=== PATIENT | female | born 1950 | race African-American/Black ===

== ENCOUNTER 2017-07-11 11:19 | Emergency (ER) | payer MEDICARE, OTHER | END 2017-07-11 14:14 | disposition home or self-care (01) | LOC: ERS 11:19 | DX: L25.9 Unspecified contact dermatitis, unspecified cause (principal); I10 Essential (primary) hypertension; F17.210 Nicotine dependence, cigarettes, uncomplicated; Z79.899 Other long term (current) drug therapy | CPT/HCPCS: 99283 ==

== ENCOUNTER 2017-08-17 20:03 | Emergency (ER) | payer MEDICARE ==
[2017-08-17 21:28] LABS: #Eosinphils 0.1 thou/uL (0.0-0.7); #Lymphocytes 1.1 thou/uL (1.20-3.40); #Monocytes 0.4 thou/uL (0.11-0.59); #Neutrophils 2.6 thou/uL (1.40-6.50); %Eosinophils 1.5 % (0.0-10.0); %Lymphocytes 26.6 % (21.0-51.0); %Monocytes 8.3 % (0.0-10.0); %Neutrophils 63.5 % (42.0-75.0); Hemoglobin 4.8 g/dL (12.0-16.0); Mean Corpuscular HGB CONC 31.6 g/dL (32.0-36.0); Mean Corpuscular Hemoglobin 35.1 pg (27.0-31.0); Mean Platelet Volume 6.4 fL (7.4-10.4); Platelet Count 287 thou/uL (130-400); Red Blood Cell (RBC) Count 1.38 mill/uL (4.20-5.40); White Blood Cell (WBC) Count 4.2 thou/uL (4.8-10.8)
[2017-08-17 21:39] LABS: ALT (SGPT) 13 U/L (8-55); AST (SGOT) 40 U/L (5-34); Albumin 3.4 g/dL (3.4-4.8); Alkaline Phosphatase 106 U/L (40-150); Anion Gap 20 mmol/L (10-20); BUN (Urea Nitrogen) 18 mg/dL (9.8-20.1); Bilirubin, Total 0.3 mg/dL (0.2-1.2); Calc. Creatinine Clearance 0 mL/min (70-130); Calcium 8.6 mg/dL (7.8-10.44); Carbon Dioxide 22 mmol/L (23-31); Chloride 100 mmol/L (98-107); Estimated GFR-MDRD 82; Glucose 74 mg/dL (80-115); Potassium 3.9 mmol/L (3.5-5.1); Protein, Total 6.4 g/dL (6.0-8.3); Sodium 138 mmol/L (136-145)
[2017-08-18 00:31] LABS: #Lymphocytes 0.7 thou/uL (1.20-3.40); #Monocytes 0.2 thou/uL (0.11-0.59); #Neutrophils 2.2 thou/uL (1.40-6.50); %Basophils 0.2 % (0.0-1.0); %Eosinophils 0.7 % (0.0-10.0); %Lymphocytes 20.8 % (21.0-51.0); %Monocytes 7.2 % (0.0-10.0); Hemoglobin 5.9 g/dL (12.0-16.0); Mean Corpuscular HGB CONC 32.8 g/dL (32.0-36.0); Mean Corpuscular Hemoglobin 34.5 pg (27.0-31.0); Mean Platelet Volume 6.1 fL (7.4-10.4); Platelet Count 224 thou/uL (130-400); RBC Distribution Width 16.2 % (11.5-14.5); Red Blood Cell (RBC) Count 1.72 mill/uL (4.20-5.40); White Blood Cell (WBC) Count 3.1 thou/uL (4.8-10.8)
[2017-08-18 04:18] LABS: #Lymphocytes 0.6 thou/uL (1.20-3.40); #Monocytes 0.3 thou/uL (0.11-0.59); #Neutrophils 1.6 thou/uL (1.40-6.50); %Eosinophils 0.7 % (0.0-10.0); %Lymphocytes 24.6 % (21.0-51.0); %Monocytes 11.2 % (0.0-10.0); %Neutrophils 63.4 % (42.0-75.0); Hemoglobin 6.2 g/dL (12.0-16.0); Mean Corpuscular HGB CONC 32.7 g/dL (32.0-36.0); Mean Corpuscular Hemoglobin 31.8 pg (27.0-31.0); Mean Corpuscular Volume 97.4 fl (81.0-99.0); Mean Platelet Volume 6.4 fL (7.4-10.4); Platelet Count 200 thou/uL (130-400); Red Blood Cell (RBC) Count 1.94 mill/uL (4.20-5.40); White Blood Cell (WBC) Count 2.6 thou/uL (4.8-10.8)
== END 2017-08-18 06:08 | disposition home or self-care (01) ==
LOC: ERS 20:03
DX: D64.9 Anemia, unspecified (principal); I10 Essential (primary) hypertension; F17.210 Nicotine dependence, cigarettes, uncomplicated; Z79.899 Other long term (current) drug therapy
CPT/HCPCS: 36430; 80053; 82274; 85025 ×2; 86850; 86900; 86901; 86920; P9016; 36415; 99406

== ENCOUNTER 2017-09-02 15:53 | Inpatient (IN) | payer MEDICARE ==
[2017-09-02 16:26] LABS: Hemoglobin 8.5 g/dL (12.0-16.0); Mean Corpuscular HGB CONC 31.1 g/dL (32.0-36.0); Mean Corpuscular Hemoglobin 32.9 pg (27.0-31.0); Mean Platelet Volume 6.6 fL (7.4-10.4); Platelet Count 261 thou/uL (130-400); RBC Distribution Width 20.9 % (11.5-14.5); Red Blood Cell (RBC) Count 2.57 mill/uL (4.20-5.40); White Blood Cell (WBC) Count 8.4 thou/uL (4.8-10.8)
[2017-09-02 16:45] LABS: Anisocytosis MODERATE=16-30 cells (100X) (0-5/hpf); Band 11 % (5-11); Lymphocytes 1 % (21-51); MDiff Complete? YES; Macrocytosis SLIGHT = 6-15 cells (100X) (0-5/hpf); Monocytes 3 % (0-10); Myelocyte 1 % (0-0); Neutrophil 83 % (42-75); Nucleated RBC 1 % (0); Ovalocytes SLIGHT = 2-5 cells (100X) (0-1/hpf); PLT Morphology Comment Appears Adequate; Polychromasia MODERATE = 3-4 cells (100X) (0-2/hpf); Target Cells SLIGHT = 2-5 cells (100X) (0-1/hpf); Tear Drops SLIGHT = 2-5 cells (100X) (0-1/hpf)
[2017-09-02 16:48] LABS: ALT (SGPT) 21 U/L (8-55); AST (SGOT) 71 U/L (5-34); Albumin 3.5 g/dL (3.4-4.8); Alcohol Less than 10 mg/dL (Less than 10); Alkaline Phosphatase 157 U/L (40-150); Anion Gap 34 mmol/L (10-20); BUN (Urea Nitrogen) 12 mg/dL (9.8-20.1); Bilirubin, Total 0.6 mg/dL (0.2-1.2); Calc. Creatinine Clearance 0 mL/min (70-130); Carbon Dioxide 11 mmol/L (23-31); Chloride 99 mmol/L (98-107); Estimated GFR-MDRD 74; Globulin 3.4 g/dL (2.4-3.5); Glucose 71 mg/dL (80-115); Potassium 3.9 mmol/L (3.5-5.1); Protein, Total 6.9 g/dL (6.0-8.3); Sodium 140 mmol/L (136-145)
[2017-09-02 16:51] LABS: Bilirubin Negative (Negative); Blood, Urine Negative (Negative); Clarity CLEAR (Clear); Glucose, Urine (Dipstick) Negative (Negative); Leukocyte Negative (Negative); Nitrite Negative (Negative); Protein, Urine (Dipstick) Trace mg/dL (Neg-Trace); Specific Gravity, Urine 1.018 (1.002-1.036); Urobilinogen 0.2 mg/dL (0.2-1.0); pH, Urine 5.5 (5.0-9.0)
[2017-09-02 17:05] LABS: CKMB 2.7 ng/mL (0-6.6); Troponin I 0.022 ng/mL (< 0.028)
[2017-09-02 17:10] LABS: Carbamazepine-Tegretol 4.5 ug/mL (4.0-12.0)
--- NOTE | 2017-09-02 17:10 | RAD ---
CHEST ONE VIEW: History: Emergency exam. Comparison: 11-29-16 FINDINGS: Old left sided rib fractures. No focal airspace consolidation, pneumothorax or effusions. Scarring of the lung apices. Cardiac silhouette and mediastinal contours within normal limits for technique. IMPRESSION: No acute intrathoracic abnormality. POS: [facility]
[2017-09-02 17:25] LABS: Free Thyroxine Index 1.43 (1.4-3.1); T4 5.5 ug/dL (4.87-11.72)
[2017-09-02] MEDS ORDERED: carBAMazepine 200 MG TAB PO SCH (18:15)
[2017-09-02] MEDS ORDERED: Acetaminophen 500 MG TAB ONE (18:36)
[2017-09-02 18:40] LABS: Acetaminophen Less than 6.0 mcg/mL (10.0-30.0); Alcohol Less than 10 mg/dL (Less than 10); Salicylate Less than 8.0 mg/dL (15.0-30.0)
[2017-09-02] MEDS ORDERED: Dextrose 5% in Water 500 ML IV SCH (18:45)
[2017-09-02 18:52] LABS: Amphetamine Not Detected (NotDetected); Barbiturates Screen Not Detected (NotDetected); Benzodiazepine Screen Not Detected (NotDetected); Cocaine Metabolite Screen Not Detected (NotDetected); Medtox Control Line Valid? VALID (VALID); Medtox Reader # READER 4; Methadone Not Detected (NotDetected); Methamphetamine Not Detected (NotDetected); Opiate Screen Not Detected (NotDetected); Oxycodone Screen Not Detected (NotDetected); Phencyclidine (PCP) Not Detected (NotDetected); THC/Cannabinoid Screen Not Detected (NotDetected); Tricyclic Screen Not Detected (NotDetected)
--- NOTE | 2017-09-02 19:21 | HP ---
DATE OF ADMISSION: 08/23/2017. CHIEF COMPLAINT: Seizures. HISTORY OF PRESENT ILLNESS: This is a 67-year-old white female living with her mother today at [facility] d 11:00 when the mother came back from [facility], the patient was complaining of some nausea and asked f or some water as patient's mother went out to get some bottle, when she returned, the patient was foa alvin in her mouth and was shaking all over the body and was leaning over the bed. Following this las nannette for a couple of minutes which was longer according to her mother, and then following this, she im mediately called the EMS and when EMS arrived, the patient had another onset of seizure. At that poi nt, the patient was more alert, but as the EMS suggested the patient to be sent to the ER. The patie nt was taken in the EMS ambulance and the patient developed another onset of seizure following anothe r onset of seizure. Following this, patient was given Ativan by the EMS and when the patient arrived here, she is completely drowsy. They checked her blood levels for carbamazepine, which was noted to be 4.5 which is on the lower range of normal. After asking the mother, she told me that the patient was taking only morning dose and was skipping the evening doses and the mother denied the patient sun ving any headaches or any dizziness. No chest pain, no nausea, no vomiting. PAST MEDICAL HISTORY: 1. Anemia of chronic disease. 2. Hypertension. 3. Chronic kidney disease stage 3. 4. History of breast cancer. 5. History of hypothyroidism. 6. History of folic acid deficiency. PAST SURGICAL HISTORY: History of hysterectomy and left hip replacement. SOCIAL HISTORY: The patient has a history of alcohol abuse, history of tobacco abuse and lives at [facility] with family. FAMILY HISTORY: Noncontributory to present complaint. HOME MEDICATIONS: 1. Cyanocobalamin. 2. Carbamazepine 200 mg p.o. b.i.d. 3. Ferrous sulfate 325 mg p.o. daily. 4. Folic acid 1 mg p.o. daily. 5. Lisinopril 20 mg/12.5 mg tablet 1 tablet p.o. daily. 6. Metoprolol 50 mg p.o. daily. 7. Pantoprazole 40 mg p.o. daily. 8. Spironolactone 25 mg p.o. in the morning. 9. Thiamine 100 mg p.o. daily. ALLERGIES: GADOLINIUM CONTRAST. REVIEW OF SYSTEMS: Could not be obtained as the patient is completely obtunded with the effect of th e medication. PHYSICAL EXAMINATION: VITAL SIGNS: Blood pressure 140/90, pulse is 120, respiratory rate is 18, saturation is 98%. GENERAL: The patient is a moderately built and moderately nourished, does not appear to be in acute distress at this time. Alert, oriented x3. HEENT: Atraumatic, normocephalic. PERRLA. Extraocular muscles were intact. Oral mucosa is pink an d moist. CARDIOVASCULAR: S1, S2 normal. No murmurs, rubs or gallops. LUNGS: Bilateral air entry was equal. No wheezing, no crackles. ABDOMEN: Soft, nontender, no guarding, no rebound tenderness. Bowel sounds normal. MUSCULOSKELETAL: No calf tenderness. No pedal edema, no joint tenderness, no joint swelling. SKIN: No cyanosis, no erythema, no rash, no pallor. NEUROLOGIC: Cranial nerve examination could not be obtained as the patient is completely disoriented and not following any commands at this time. LABORATORY DATA: WBC is 8.5, hemoglobin 8.5, hematocrit 27.8, platelets 261. Sodium is 140, potassi um 3.9, chloride is 99, BUN 12, creatinine 0.92. BNP is 589. Prolactin is 51.36. Chest x-ray was done which did not show any evidence of acute abnormality. No CT was ordered. The p vlad has a previous history of seizures. ASSESSMENT AND PLAN: 1. Acute tonic clonic seizure. 2. Acute metabolic encephalopathy. 3. History of congestive heart failure. 4. History of hyperprolactinemia. 5. Anemia of chronic disease. 1. The plan is to admit this patient to IMCU as the patient has poorly-controlled seizures secondary to subtherapeutic levels of carbamazepine. Patient had repeat seizures x3 today. We will closely m onitor with seizure precautions and will keep the patient n.p.o. We will give Ativan as needed, for seizure episode, 2 mg. The patient was given carbamazepine in the ER, the extra dose, which the lora ent missed. We will recheck the carbamazepine levels tomorrow. I will consult Neurology as the lora ent has never seen a Neurology and was supposed to see one of the neurologists in the clinics. 2. The patient has an elevated prolactin level, but her previous prolactin levels were much larger t de jesus this. There is no previous history of evaluation of this prolactin levels, but I would leave thi s for a neurologist and would plan to order an MRI with and without contrast tomorrow if the neurolog ist want to pursue this. 3. Patient has anemia of chronic disease. Previously, she always had hemoglobin almost on this leve ls and this is not new. She is on folic acid as the patient has a megaloblastic anemia. 4. The patient has history of CHF. She had elevated BNP, but her previous BNPs were much larger jay jay n this one. The patient does not seem to be any evidence of volume overload nor any evidence of eloy estive heart failure at this time. We will closely monitor and avoid any fluid overloads. We will n ot start the patient on any IV fluids unless absolutely needed. The patient had low blood sugar leve ls at this time and will start her on D5 at 50 mL an hour. 5. History of hypertension. We will restart the patient on her home medications. 6. Deep venous thrombosis prophylaxis, Lovenox. Dictating physician, Jarvis Baumann, has spent 70 minutes with this patient and 1 hour is the critical c are time.
[2017-09-02 19:53] LABS: Troponin I 0.031 ng/mL (< 0.028)
[2017-09-02] MEDS ORDERED: Ondansetron HCl/PF 4 MG/2 ML Vial IVP PRN ×2 (19:58→21:27)
[2017-09-02] MEDS ORDERED: Ondansetron ODT 4 MG TAB SL PRN (19:58)
[2017-09-02] MEDS ORDERED: Acetaminophen 325 MG TAB PO PRN (19:58)
[2017-09-02] MEDS ORDERED: HYDROcodone/Acetaminophen 5/325 mg Tablet PO PRN (21:27)
[2017-09-02] MEDS ORDERED: Lorazepam 2 MG/ML VIAL SLOW IVP PRN (21:27)
[2017-09-02] MEDS: carBAMazepine 200 MG TAB PO SCH (21:34)
[2017-09-02] MEDS ORDERED: Famotidine/PF 20 mg/2ml Vial SLOW IVP SCH (21:45)
[2017-09-02] MEDS ORDERED: Dextrose 5 %-0.45 % NaCl 1,000 ML IV SCH (22:00)
[2017-09-02 22:30] LABS: Troponin I 0.028 ng/mL (< 0.028)
[2017-09-03 04:21] LABS: #Lymphocytes 0.7 thou/uL (1.20-3.40); #Monocytes 0.3 thou/uL (0.11-0.59); #Neutrophils 2.3 thou/uL (1.40-6.50); %Basophils 0.3 % (0.0-1.0); %Lymphocytes 20.3 % (21.0-51.0); %Monocytes 8.3 % (0.0-10.0); %Neutrophils 70.1 % (42.0-75.0); Hemoglobin 6.3 g/dL (12.0-16.0); Mean Corpuscular HGB CONC 32.3 g/dL (32.0-36.0); Mean Platelet Volume 6.9 fL (7.4-10.4); Platelet Count 200 thou/uL (130-400); RBC Distribution Width 21.3 % (11.5-14.5); White Blood Cell (WBC) Count 3.3 thou/uL (4.8-10.8)
[2017-09-03 04:53] LABS: Anion Gap 18 mmol/L (10-20); BUN (Urea Nitrogen) 9 mg/dL (9.8-20.1); Calc. Creatinine Clearance 62 mL/min (70-130); Calcium 7.8 mg/dL (7.8-10.44); Carbon Dioxide 23 mmol/L (23-31); Chloride 104 mmol/L (98-107); Estimated GFR-MDRD Greater than 90; Glucose 88 mg/dL (80-115); Potassium 4.9 mmol/L (3.5-5.1); Sodium 140 mmol/L (136-145)
[2017-09-03] MEDS ORDERED: Ferrous Sulfate 325 MG TAB PO SCH (08:00)
[2017-09-03] MEDS ORDERED: FLU VACC TS2017-18 (>65YR) 0.5 ML SYRINGE IM ONE (09:00)
[2017-09-03] MEDS ORDERED: Prevnar 13-Val Conj/PF 0.5 ML SYRINGE IM ONE (09:00)
[2017-09-03] MEDS ORDERED: Folic Acid 1 MG TAB PO SCH (09:00)
[2017-09-03] MEDS: Famotidine/PF 20 mg/2ml Vial SLOW IVP SCH ×2 (09:05→20:40)
[2017-09-03] MEDS: Spironolactone 25 MG TAB PO SCH (09:55)
[2017-09-03] MEDS: carBAMazepine 200 MG TAB PO SCH ×2 (09:55→20:40)
[2017-09-03] MEDS: Lisinopril/Hydrochlorothiazide 20 mg/12.5 mg Tablet PO SCH (09:55)
[2017-09-03] MEDS ORDERED: Enoxaparin Sodium 40 MG/0.4 ML SYRINGE SC SCH (10:00)
[2017-09-03 11:01] LABS: Iron 124 ug/dL (50-170); Iron Binding Capacity, Total 266 mcg/dL (265-497)
[2017-09-03 11:03] LABS: Reticulocyte Count 5.2 % (0.5-1.5)
--- NOTE | 2017-09-03 12:34 | CON ---
DATE OF CONSULTATION: 09/03/2017 Ms. Oconnell is a 67-year-old female with a seizure disorder. She admits that she has only been taking half the dose of her seizure medications. She had multiple seizures yesterday and was admitted to [facility] IMU. She has not seized since. She denies a febrile illness leading up to this. She is a very poor historian. PAST MEDICAL HISTORY: Remarkable for, 1. Hypertension. 2. Chronic kidney disease. 3. History of breast cancer. 4. History of hypothyroidism. 5. History of hysterectomy. 6. History of hip replacement. 7. 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 8. History of macrocytic anemia and neutropenia felt to be secondary to her alcohol abuse. She has actually been seen by the Hematology service in the past (05/06). 9. History of protein-calorie malnutrition. 10. History of a cardiac catheterization in 11/2016 that showed no coronary disease. 11. History of endoscopy by Dr. Matias in September showing only diverticulosis. No evidence of varice s and otherwise normal colon exam. 12. History of a brain MRI, 01/2013, showing a left temporal lobe lesion, felt to be old hemorrhage. FAMILY HISTORY: Negative for lung disease at an early age. When she was in the hospital, she was supposed to be on lisinopril, hydrochlorothiazide, metoprolol, Aldactone, Tegretol twice a day, she has been taking this once a day. Father of alcoholism. Brother had cancer. She lives with her mother and her mother called the ambulance after she had a seizure last night. She apparently still drinks and smokes. REVIEW OF SYSTEMS: Twelve-point review of systems is otherwise negative. PHYSICAL EXAMINATION: GENERAL: She is afebrile, heart rate is 100. Blood pressure 161/93, respiratory rate is 18, oximetr y is 99. HEENT: Pupils are equally reactive. Sclerae is anicteric. Extraocular movements appear full. NECK: Supple. LUNGS: Clear. HEART: Regular rhythm. S1 and S2 are normal. ABDOMEN: Soft and nontender. EXTREMITIES: Without clubbing, cyanosis, or edema. LABORATORY DATA: White count 3.3, hemoglobin 6.3, platelets 200,000. Electrolytes are normal. IMPRESSION: 1. Anemia of chronic disease with a history of normal colonoscopy and EGD in the past. 2. Severe protein-calorie malnutrition. 3. Noncompliance of seizure medicines. 4. Ongoing alcohol use, which lowers her seizure threshold. 5. History of hypertension. 6. History of a normal catheterization. She is stable to move out of the intermediate care unit to the stroke unit or to a medical bed. We w ill sign off when she transfers out. There are no acute issues here other than her ongoing medicatio n noncompliance. This is a 50 minute consult, of which 50% of the time was spent on the unit coordinating care, review ing records, reviewing radiographs and discussing care plan with the staff.
--- NOTE | 2017-09-03 13:02 | PDOC.PN ---
- Subjective Encounter Start Date: 09/03/17 Encounter Start Time: 12:00 Patient is seen today, alert and oriented, She is very weak with drop in her hb. - Objective Resuscitation Status: Resuscitation Status FULL:Full Resuscitation MAR Reviewed: Yes Vital Signs & Weight: Vital Signs (12 hours) Temp Pulse Pulse Pulse Pulse Resp BP 09/03/17 12:25 98.7 F 95 18 09/03/17 11:52 98.7 F 101 H 18 09/03/17 09:55 100 161/93 H 09/03/17 09:39 109 H 107 H 09/03/17 07:55 98.6 F 113 H 18 09/03/17 07:29 98.6 F 113 H 18 09/03/17 04:00 100.0 F H 112 H 18 BP BP BP BP Pulse Ox Pulse Ox Pulse Ox 09/03/17 12:25 140/79 100 09/03/17 11:52 128/80 99 09/03/17 09:55 09/03/17 09:39 154/98 H 161/93 H 100 99 09/03/17 07:55 100 09/03/17 07:29 163/90 H 100 09/03/17 04:00 170/95 H 100 Weight Weight 112 lb 8 oz I&O: 09/02/17 09/03/17 09/04/17 06:59 06:59 06:59 Intake Total 550 0 Balance 550 0 Result Diagrams: 09/03/17 03:23 09/03/17 03:23 Dx/Plan (1) Seizure disorder Code(s): G40.909 - EPILEPSY, UNSP, NOT INTRACTABLE, WITHOUT STATUS EPILEPTICUS Status: Chronic Comment: Consulted Neurology, restrted her Carbamazepine, Need complaince with her meds, no siezures today, pt is very weak and emaciated. continue to Monitor her . (2) Alcohol abuse Code(s): F10.10 - ALCOHOL ABUSE, UNCOMPLICATED Status: Chronic Comment: Pt is non compliance with advice to quit alcohol, increasing risk for recurrent sizures. Will strt paitent on thiamine and Foilic acid. (3) Hypertension Code(s): I10 - ESSENTIAL (PRIMARY) HYPERTENSION Status: Chronic Qualifiers: Comment: Continue her home meds, well controlled. (4) Macrocytic anemia Code(s): D53.9 - NUTRITIONAL ANEMIA, UNSPECIFIED Status: Chronic Comment: Pt had Drop in her Hb today to 6.3, will do 2 untis PRBC, check retic count and iron level, pt is severely malniurished, likely nutrition cause too. (5) Protein-calorie malnutrition, moderate Code(s): E44.0 - MODERATE PROTEIN-CALORIE MALNUTRITION Status: Chronic Comment: Will do prealbumin, consult a Dietitian to go over her eating habits. - Plan cont current plan of care, PT/OT, social service assistant (Will need likely placemnent for non compliance.), incentive spirometry, DVT proph w/lovenox * . - Discharge Day Encounter end time: 12:35 Review of Systems - Review of Systems Constitutional: weakness, malaise. negative: fever, chills, sweats, other Eyes: negative: Pain, Vision Change, Conjunctivae Inflammation, Eyelid Inflammation, Redness, Other ENT: negative: Ear Pain, Ear Discharge, Nose Pain, Nose Discharge, Nose Congestion, Mouth Pain, Mouth Swelling, Throat Pain, Throat Swelling, Other Respiratory: negative: Cough, Dry, Shortness of Breath, Hemoptysis, SOB with Excertion, Pleuritic Pain, Sputum, Wheezing Cardiovascular: negative: chest pain, palpitations, orthopnea, paroxysmal nocturnal dyspnea, edema, light headedness, other Gastrointestinal: negative: Nausea, Vomiting, Abdominal Pain, Diarrhea, Constipation, Melena, Hematochezia, Other Genitourinary: negative: Dysuria, Frequency, Incontinence, Hematuria, Retention , Other Musculoskeletal: negative: Neck Pain, Shoulder Pain, Arm Pain, Back Pain, Hand Pain, Leg Pain, Foot Pain, Other Skin: negative: Rash, Lesions, Ace, Bruising, Other Neurological: Weakness, Seizures - Medications/Allergies Allergies/Adverse Reactions: Allergies Allergy/AdvReac Type Severity Reaction Status Date / Time Gadolinium-Containing AdvReac Mild Emesis Verified 09/02/17 22:18 Contrast Medi JOYA Allergy Uncoded 09/02/17 22:18 Medications: Current Medications Hydrocodone Bitart/Acetaminophen ([place] 5/325) 1 tab PO Q4H PRN PRN Reason: Moderate Pain (4-6) Hydrocodone Bitart/Acetaminophen ([place] 7.5/325) 1 tab PO Q4H PRN PRN Reason: Moderate Pain (4-6) Carbamazepine (Tegretol) 200 mg PO BID COUNT INCLUDES THE [facility] Last Admin: 09/03/17 09:55 Dose: 200 mg Enoxaparin Sodium (Lovenox) 40 mg SC 0900 COUNT INCLUDES THE [facility] Famotidine (Pepcid) 20 mg SLOW IVP Q12HR COUNT INCLUDES THE [facility] Last Admin: 09/03/17 09:05 Dose: 20 mg Folic Acid (Folvite) 1 mg PO DAILY COUNT INCLUDES THE [facility] Lisinopril/HCTZ (Prinizide 20-12.5) 1 tab PO DAILY COUNT INCLUDES THE [facility] Last Admin: 09/03/17 09:55 Dose: 1 tab Dextrose/Sodium Chloride (D5 1/2 Ns) 1,000 mls @ 50 mls/hr IV .Q20H COUNT INCLUDES THE [facility] Last Admin: 09/02/17 22:01 Dose: 1,000 mls Lorazepam (Ativan) 2 mg SLOW IVP Q15MIN PRN PRN Reason: Seizures Metoprolol Succinate (Toprol Xl) 50 mg PO DAILY COUNT INCLUDES THE [facility] Last Admin: 09/03/17 09:55 Dose: 50 mg Ondansetron HCl (Zofran) 4 mg IVP Q6H PRN PRN Reason: Nausea/Vomiting Pantoprazole Sodium (Protonix) 40 mg PO DAILY COUNT INCLUDES THE [facility] Last Admin: 09/03/17 09:55 Dose: 40 mg Sodium Chloride (Flush - Normal Saline) 10 ml IVF Q12HR COUNT INCLUDES THE [facility] Last Admin: 09/03/17 09:56 Dose: 10 ml Sodium Chloride (Flush - Normal Saline) 10 ml IVF PRN PRN PRN Reason: Saline Flush Spironolactone (Aldactone) 25 mg PO QAM-WM COUNT INCLUDES THE [facility] Last Admin: 09/03/17 09:55 Dose: 25 mg Thiamine HCl (Thiamine) 100 mg PO DAILY COUNT INCLUDES THE [facility]
[2017-09-03] MEDS ORDERED: Furosemide 20 MG/2 ML VIAL SLOW IVP SCH (15:30)
--- NOTE | 2017-09-03 20:01 | CON ---
NEUROLOGIC FOLLOWUP DATE OF CONSULTATION: 09/03/2017 CONSULTING PHYSICIAN: Hospitalist Service. IMPRESSION: This is a middle-aged woman with a history of seizures, has been compliant with Tegretol , but her levels are a bit low at 4.5. Her last seizure was reportedly a month ago. I would suggest that we would increase her dose to 600 mg per day, be happy to follow up with her as an outpatient.
[2017-09-04 06:55] LABS: #Lymphocytes 0.6 thou/uL (1.20-3.40); #Monocytes 0.3 thou/uL (0.11-0.59); #Neutrophils 4.4 thou/uL (1.40-6.50); %Basophils 0.1 % (0.0-1.0); %Eosinophils 0.9 % (0.0-10.0); %Lymphocytes 11.3 % (21.0-51.0); %Monocytes 5.1 % (0.0-10.0); %Neutrophils 82.7 % (42.0-75.0); Hemoglobin 10.1 g/dL (12.0-16.0); Mean Corpuscular HGB CONC 33.8 g/dL (32.0-36.0); Mean Corpuscular Hemoglobin 32.6 pg (27.0-31.0); Mean Corpuscular Volume 96.3 fl (81.0-99.0); Mean Platelet Volume 7.6 fL (7.4-10.4); Platelet Count 143 thou/uL (130-400); RBC Distribution Width 18.7 % (11.5-14.5); Red Blood Cell (RBC) Count 3.11 mill/uL (4.20-5.40); White Blood Cell (WBC) Count 5.4 thou/uL (4.8-10.8)
[2017-09-04 07:01] LABS: Anion Gap 18 mmol/L (10-20); BUN (Urea Nitrogen) 8 mg/dL (9.8-20.1); Calc. Creatinine Clearance 53 mL/min (70-130); Calcium 8.2 mg/dL (7.8-10.44); Carbon Dioxide 24 mmol/L (23-31); Chloride 102 mmol/L (98-107); Estimated GFR-MDRD 88; Glucose 79 mg/dL (80-115); Potassium 3.2 mmol/L (3.5-5.1); Sodium 141 mmol/L (136-145)
[2017-09-04] MEDS ORDERED: Potassium Chloride 20 MEQ TAB PO SCH (08:30)
[2017-09-04] MEDS: Enoxaparin Sodium 40 MG/0.4 ML SYRINGE SC SCH (09:35)
[2017-09-04] MEDS: Famotidine/PF 20 mg/2ml Vial SLOW IVP SCH ×2 (09:35→20:28)
[2017-09-04] MEDS: Lisinopril/Hydrochlorothiazide 20 mg/12.5 mg Tablet PO SCH (09:36)
[2017-09-04] MEDS: carBAMazepine 200 MG TAB PO SCH ×3 (09:36→20:28)
[2017-09-04] MEDS: Spironolactone 25 MG TAB PO SCH (09:37)
[2017-09-04] MEDS: Folic Acid 1 MG TAB PO SCH (09:37)
--- NOTE | 2017-09-04 12:38 | PDOC.PN ---
- Subjective Encounter Start Date: 09/04/17 Encounter Start Time: 12:36 Subjective: feels OK. can not really tell me why she is here -: denies any CP,SOB.no fever/chills - Objective Resuscitation Status: Resuscitation Status FULL:Full Resuscitation MAR Reviewed: Yes Vital Signs & Weight: Vital Signs (12 hours) Temp Pulse Resp BP BP Pulse Ox 09/04/17 12:00 89 18 158/97 H 94 L 09/04/17 09:36 91 175/95 H 09/04/17 07:17 98.6 F 91 16 175/95 H 96 09/04/17 05:15 98.9 F 92 16 164/99 H 96 09/04/17 03:00 98.8 F 94 16 152/95 H 99 Weight Admit Weight 112 lb 8 oz Weight 103 lb 8 oz I&O: 09/03/17 09/04/17 09/05/17 06:59 06:59 06:59 Intake Total 550 1169 Balance 550 1169 Result Diagrams: 09/04/17 06:24 09/04/17 06:24 Additional Labs: Laboratory Tests 09/02/17 09/02/17 09/02/17 16:16 16:16 16:17 Iron TIBC % Saturation Troponin I 0.022 Thyroxine (T4) 5.5 Prolactin 51.36 H 09/02/17 09/02/17 09/03/17 18:11 21:57 10:34 Iron 124 TIBC 266 % Saturation 47 Troponin I 0.031 H 0.028 Thyroxine (T4) Prolactin Phys Exam - Physical Examination Constitutional: NAD HEENT: PERRLA, moist MMs, sclera anicteric, oral pharynx no lesions Neck: no nodes, no JVD, supple, full ROM Respiratory: no wheezing, no rales, no rhonchi, clear to auscultation bilateral Cardiovascular: RRR, no significant murmur, no rub, gallop Gastrointestinal: soft, non-tender, no distention, positive bowel sounds Musculoskeletal: no edema, pulses present Neurological: non-focal, normal sensation, moves all 4 limbs Psychiatric: normal affect, A&O x 3 Skin: no rash Dx/Plan (1) Breakthrough seizure Code(s): G40.919 - EPILEPSY, UNSP, INTRACTABLE, WITHOUT STATUS EPILEPTICUS Status: Acute (2) H/O malignant neoplasm of breast Code(s): Z85.3 - PERSONAL HISTORY OF MALIGNANT NEOPLASM OF BREAST Status: Acute (3) Alcohol abuse Code(s): F10.10 - ALCOHOL ABUSE, UNCOMPLICATED Status: Chronic Comment: Pt is non compliance with advice to quit alcohol, increasing risk for recurrent sizures. Will strt paitent on thiamine and Foilic acid. (4) Hypertension Code(s): I10 - ESSENTIAL (PRIMARY) HYPERTENSION Status: Chronic Qualifiers: Comment: Continue her home meds, well controlled. (5) Hypothyroidism Code(s): E03.9 - HYPOTHYROIDISM, UNSPECIFIED Status: Chronic Qualifiers: (6) Macrocytic anemia Code(s): D53.9 - NUTRITIONAL ANEMIA, UNSPECIFIED Status: Chronic Comment: Pt had Drop in her Hb today to 6.3, will do 2 untis PRBC, check retic count and iron level, pt is severely malniurished, likely nutrition cause too. (7) Protein-calorie malnutrition, moderate Code(s): E44.0 - MODERATE PROTEIN-CALORIE MALNUTRITION Status: Chronic Comment: Will do prealbumin, consult a Dietitian to go over her eating habits. (8) Seizure disorder Code(s): G40.909 - EPILEPSY, UNSP, NOT INTRACTABLE, WITHOUT STATUS EPILEPTICUS Status: Chronic Comment: Consulted Neurology, restrted her Carbamazepine, Need complaince with her meds, no siezures today, pt is very weak and emaciated. continue to Monitor her . (9) Tobacco abuse Code(s): Z72.0 - TOBACCO USE Status: Chronic - Plan out of bed/ambulate, DVT proph w/SCDs seems post-ictal w some confusion. baseline unknown.cont Tegretol.seizure p -: cont Thiamine,FA.prn ativan.ASE protocol -: hemodynamically stable. OK to transfer to Medical. -: home meds as started.reviewed. -: am labs.Occult blood testing pending.H/H stable * . Review of Systems - Review of Systems Constitutional: weakness, malaise. negative: fever, chills, sweats, other Respiratory: Cough. negative: Dry, Shortness of Breath, Hemoptysis, SOB with Excertion, Pleuritic Pain, Sputum, Wheezing Cardiovascular: negative: chest pain, palpitations, orthopnea, paroxysmal nocturnal dyspnea, edema, light headedness, other Gastrointestinal: negative: Nausea, Vomiting, Abdominal Pain, Diarrhea, Constipation, Melena, Hematochezia, Other Genitourinary: negative: Dysuria, Frequency, Incontinence, Hematuria, Retention , Other Neurological: negative: Weakness, Numbness, Incoordination, Change in Speech, Confusion, Seizures, Other - Medications/Allergies Allergies/Adverse Reactions: Allergies Allergy/AdvReac Type Severity Reaction Status Date / Time Gadolinium-Containing AdvReac Mild Emesis Verified 09/02/17 22:18 Contrast Medi JOYA Allergy Uncoded 09/02/17 22:18 Medications: Current Medications Hydrocodone Bitart/Acetaminophen ([place] 5/325) 1 tab PO Q4H PRN PRN Reason: Moderate Pain (4-6) Hydrocodone Bitart/Acetaminophen ([place] 7.5/325) 1 tab PO Q4H PRN PRN Reason: Moderate Pain (4-6) Carbamazepine (Tegretol) 200 mg PO TID [facility] Last Admin: 09/04/17 09:36 Dose: 200 mg Enoxaparin Sodium (Lovenox) 40 mg SC 0900 [facility] Last Admin: 09/04/17 09:35 Dose: 40 mg Famotidine (Pepcid) 20 mg SLOW IVP Q12HR [facility] Last Admin: 09/04/17 09:35 Dose: 20 mg Folic Acid (Folvite) 1 mg PO DAILY [facility] Last Admin: 09/04/17 09:37 Dose: 1 mg Lisinopril/HCTZ (Prinizide 20-12.5) 1 tab PO DAILY [facility] Last Admin: 09/04/17 09:36 Dose: 1 tab Lorazepam (Ativan) 2 mg SLOW IVP Q15MIN PRN PRN Reason: Seizures Metoprolol Succinate (Toprol Xl) 50 mg PO DAILY [facility] Last Admin: 09/04/17 09:36 Dose: 50 mg Ondansetron HCl (Zofran) 4 mg IVP Q6H PRN PRN Reason: Nausea/Vomiting Pantoprazole Sodium (Protonix) 40 mg PO DAILY [facility] Last Admin: 09/04/17 09:36 Dose: 40 mg Sodium Chloride (Flush - Normal Saline) 10 ml IVF Q12HR [facility] Last Admin: 09/04/17 09:35 Dose: 10 ml Sodium Chloride (Flush - Normal Saline) 10 ml IVF PRN PRN PRN Reason: Saline Flush Spironolactone (Aldactone) 25 mg PO QAM-[facility] Last Admin: 09/04/17 09:37 Dose: 25 mg Thiamine HCl (Thiamine) 100 mg PO DAILY [facility] Last Admin: 09/04/17 09:36 Dose: 100 mg
[2017-09-04] MEDS ORDERED: cloNIDine 0.1 MG TAB PO PRN (16:20)
[2017-09-04] MEDS ORDERED: hydrALAZINE 20 MG/ML VIAL SLOW IVP PRN (16:20)
[2017-09-05 05:46] LABS: #Lymphocytes 0.7 thou/uL (1.20-3.40); #Monocytes 0.5 thou/uL (0.11-0.59); #Neutrophils 4.8 thou/uL (1.40-6.50); %Basophils 0.3 % (0.0-1.0); %Eosinophils 0.8 % (0.0-10.0); %Lymphocytes 10.8 % (21.0-51.0); %Monocytes 8.5 % (0.0-10.0); %Neutrophils 79.6 % (42.0-75.0); Hemoglobin 10.3 g/dL (12.0-16.0); Mean Corpuscular HGB CONC 33.3 g/dL (32.0-36.0); Mean Corpuscular Hemoglobin 32.6 pg (27.0-31.0); Mean Corpuscular Volume 97.7 fl (81.0-99.0); Mean Platelet Volume 7.3 fL (7.4-10.4); Platelet Count 156 thou/uL (130-400); RBC Distribution Width 18.8 % (11.5-14.5); Red Blood Cell (RBC) Count 3.15 mill/uL (4.20-5.40)
[2017-09-05 06:22] LABS: Anion Gap 19 mmol/L (10-20); BUN (Urea Nitrogen) 9 mg/dL (9.8-20.1); Calc. Creatinine Clearance 49 mL/min (70-130); Calcium 8.3 mg/dL (7.8-10.44); Carbon Dioxide 24 mmol/L (23-31); Chloride 103 mmol/L (98-107); Estimated GFR-MDRD 79; Glucose 98 mg/dL (80-115); Potassium 3.6 mmol/L (3.5-5.1); Sodium 142 mmol/L (136-145)
[2017-09-05] MEDS: Spironolactone 25 MG TAB PO SCH (08:21)
[2017-09-05] MEDS: Lisinopril/Hydrochlorothiazide 20 mg/12.5 mg Tablet PO SCH (08:23)
[2017-09-05] MEDS: Folic Acid 1 MG TAB PO SCH (08:23)
[2017-09-05] MEDS: Famotidine/PF 20 mg/2ml Vial SLOW IVP SCH (08:24)
[2017-09-05] MEDS: Enoxaparin Sodium 40 MG/0.4 ML SYRINGE SC SCH (08:24)
[2017-09-05] MEDS: carBAMazepine 200 MG TAB PO SCH ×3 (08:34→20:22)
[2017-09-05] MEDS ORDERED: Lorazepam 2 MG/ML VIAL SLOW IVP PRN (08:58)
[2017-09-05] MEDS ORDERED: Amlodipine 5 MG TAB PO SCH (09:00)
--- NOTE | 2017-09-05 10:35 | PQF ---
CLINICAL DOCUMENTATION IMPROVEMENT CLARIFICATION FORM: ICD-10 Updated PLEASE DO AN ADDENDUM TO THE PROGRESS NOTE WITH ANY DOCUMENTATION UPDATES OR ADDITIONS AND CARRY THROUGH TO DC SUMMARY. THANK YOU. DATE: 09/05 ATTN: DR. ANNE MARIE WALLS Please exercise your independent, professional judgment in responding to the clarification form. Clinical indicators are provided on the bottom of this form for your review Conflicting documentation was noted in the Medical Record, please clarify if patient is being treated/monitored for: [ X ] SEVERE PROTEIN CALORIE MALNUTRITION (diagnosis #1) [ ] MODERATE PROTEIN CALORIE MALNUTRITION (diagnosis #2) [ ] Other diagnosis [ ] Unable to determine For continuity of documentation, please document condition throughout progress notes and discharge summary. Thank You. CLINICAL INDICATORS - SIGNS / SYMPTOMS/ LABS PULMONOLOGY CONSULT DOCUMENTATION 09/03: IMPRESSION: 2. SEVERE PROTEIN CALORIE MALNUTRITION ATTENDING PHYSICIAN PN DATED 09/03 & 16: MODERATE PROTEIN CALORIE MALNUTRITION BMI: 18.9 RISK FACTORS: CHRONIC ALCOHOL ABUSE POOR PO INTAKE TREATMENT: NUTRITION ASSESSMENT THANK YOU! Emma (This form is maintained as a part of the permanent medical record) 2014 [employer]. All Rights Reserved Emma Fowler RN, BSN [email or web address] Office: [phone] [facility]
[2017-09-05] MEDS: Famotidine 20 MG TAB PO SCH ×2 (11:02→20:22)
[2017-09-05 12:09] VITALS: BMI 18.9
--- NOTE | 2017-09-05 12:42 | PDOC.PN ---
- Subjective Encounter Start Date: 09/05/17 Encounter Start Time: 12:40 Subjective: feels Ok.no new complaints -: hallucinating - Objective Resuscitation Status: Resuscitation Status FULL:Full Resuscitation MAR Reviewed: Yes Vital Signs & Weight: Vital Signs (12 hours) Temp Pulse Resp BP BP Pulse Ox 09/05/17 12:00 99.1 F 95 18 152/98 H 96 09/05/17 08:23 104 H 164/101 H 09/05/17 08:21 104 H 164/101 H 09/05/17 08:00 98.3 F 104 H 16 98 09/05/17 07:40 98.3 F 104 H 16 164/101 H 98 09/05/17 04:00 98.6 F 105 H 16 153/97 H 98 Weight Admit Weight 112 lb 8 oz Weight 106 lb 14.787 oz I&O: 09/04/17 09/05/17 09/06/17 06:59 06:59 06:59 Intake Total 1169 350 300 Balance 1169 350 300 Result Diagrams: 09/05/17 05:36 09/05/17 05:36 Additional Labs: Laboratory Tests 09/04/17 09:32 Magnesium 1.0 L Phys Exam - Physical Examination Constitutional: NAD HEENT: PERRLA, moist MMs, sclera anicteric, oral pharynx no lesions Neck: no nodes, no JVD, supple, full ROM Respiratory: no wheezing, no rales, no rhonchi, clear to auscultation bilateral Cardiovascular: RRR, no significant murmur Gastrointestinal: soft, non-tender, no distention, positive bowel sounds Musculoskeletal: no edema, pulses present Neurological: non-focal, normal sensation, moves all 4 limbs Psychiatric: normal affect Skin: no rash Dx/Plan (1) Breakthrough seizure Code(s): G40.919 - EPILEPSY, UNSP, INTRACTABLE, WITHOUT STATUS EPILEPTICUS Status: Acute (2) H/O malignant neoplasm of breast Code(s): Z85.3 - PERSONAL HISTORY OF MALIGNANT NEOPLASM OF BREAST Status: Acute (3) Alcohol abuse Code(s): F10.10 - ALCOHOL ABUSE, UNCOMPLICATED Status: Chronic Comment: Pt is non compliance with advice to quit alcohol, increasing risk for recurrent sizures. Will strt paitent on thiamine and Foilic acid. (4) Hypertension Code(s): I10 - ESSENTIAL (PRIMARY) HYPERTENSION Status: Chronic Qualifiers: Comment: Continue her home meds, well controlled. (5) Hypothyroidism Code(s): E03.9 - HYPOTHYROIDISM, UNSPECIFIED Status: Chronic Qualifiers: (6) Macrocytic anemia Code(s): D53.9 - NUTRITIONAL ANEMIA, UNSPECIFIED Status: Chronic Comment: Pt had Drop in her Hb today to 6.3, will do 2 untis PRBC, check retic count and iron level, pt is severely malniurished, likely nutrition cause too. (7) Seizure disorder Code(s): G40.909 - EPILEPSY, UNSP, NOT INTRACTABLE, WITHOUT STATUS EPILEPTICUS Status: Chronic Comment: Consulted Neurology, restrted her Carbamazepine, Need complaince with her meds, no siezures today, pt is very weak and emaciated. continue to Monitor her . (8) Tobacco abuse Code(s): Z72.0 - TOBACCO USE Status: Chronic (9) Malnutrition Code(s): E46 - UNSPECIFIED PROTEIN-CALORIE MALNUTRITION Status: Acute Qualifiers: Malnutrition type: protein-calorie malnutrition Protein-calorie malnutrition severity: severe Qualified Code(s): E43 - Unspecified severe protein-calorie malnutrition - Plan DVT proph w/SCDs seizures controlled.high risk of DTs.use prn ativan -: add librium taper -: not ready for DC yet due to AMS -: monitor. -: replace and reckeck lytes prn * . Review of Systems - Review of Systems Other: can not be obtained reliably due to AMS - Medications/Allergies Allergies/Adverse Reactions: Allergies Allergy/AdvReac Type Severity Reaction Status Date / Time Gadolinium-Containing AdvReac Mild Emesis Verified 09/02/17 22:18 Contrast Medi JOYA Allergy Uncoded 09/02/17 22:18 Medications: Current Medications Hydrocodone Bitart/Acetaminophen ([place] 5/325) 1 tab PO Q4H PRN PRN Reason: Moderate Pain (4-6) Hydrocodone Bitart/Acetaminophen ([place] 7.5/325) 1 tab PO Q4H PRN PRN Reason: Moderate Pain (4-6) Amlodipine Besylate (Norvasc) 2.5 mg PO DAILY [facility] Last Admin: 09/05/17 08:21 Dose: 2.5 mg Carbamazepine (Tegretol) 200 mg PO TID [facility] Last Admin: 09/05/17 08:34 Dose: 200 mg Clonidine (Catapres) 0.1 mg PO Q4H PRN PRN Reason: SBP>160 Enoxaparin Sodium (Lovenox) 40 mg SC 0900 [facility] Last Admin: 09/05/17 08:24 Dose: 40 mg Famotidine (Pepcid) 20 mg PO BID [facility] Last Admin: 09/05/17 11:02 Dose: Not Given Folic Acid (Folvite) 1 mg PO DAILY [facility] Last Admin: 09/05/17 08:23 Dose: 1 mg Lisinopril/HCTZ (Prinizide 20-12.5) 1 tab PO DAILY [facility] Last Admin: 09/05/17 08:23 Dose: 1 tab Hydralazine HCl (Apresoline) 10 mg SLOW IVP Q4H PRN PRN Reason: SBP>170 Last Admin: 09/04/17 17:48 Dose: 10 mg Lorazepam (Ativan) 1 mg SLOW IVP Q4H PRN PRN Reason: Anxiety/Agitation Metoprolol Succinate (Toprol Xl) 50 mg PO DAILY [facility] Last Admin: 09/05/17 08:23 Dose: 50 mg Ondansetron HCl (Zofran) 4 mg IVP Q6H PRN PRN Reason: Nausea/Vomiting Pantoprazole Sodium (Protonix) 40 mg PO DAILY [facility] Last Admin: 09/05/17 08:23 Dose: 40 mg Sodium Chloride (Flush - Normal Saline) 10 ml IVF Q12HR [facility] Last Admin: 09/05/17 08:24 Dose: 10 ml Sodium Chloride (Flush - Normal Saline) 10 ml IVF PRN PRN PRN Reason: Saline Flush Spironolactone (Aldactone) 25 mg PO QAM-WM [facility] Last Admin: 09/05/17 08:21 Dose: 25 mg Thiamine HCl (Thiamine) 100 mg PO DAILY [facility] Last Admin: 09/05/17 08:23 Dose: 100 mg
[2017-09-06] MEDS: Lisinopril/Hydrochlorothiazide 20 mg/12.5 mg Tablet PO SCH (09:01)
[2017-09-06] MEDS: Famotidine 20 MG TAB PO SCH ×2 (09:01→21:50)
[2017-09-06] MEDS: Spironolactone 25 MG TAB PO SCH (09:01)
[2017-09-06] MEDS: Folic Acid 1 MG TAB PO SCH (09:01)
[2017-09-06] MEDS: Amlodipine 5 MG TAB PO SCH (09:02)
[2017-09-06] MEDS: carBAMazepine 200 MG TAB PO SCH ×3 (09:02→21:50)
[2017-09-06] MEDS: Enoxaparin Sodium 40 MG/0.4 ML SYRINGE SC SCH (09:02)
--- NOTE | 2017-09-06 13:23 | PDOC.PN ---
- Subjective Encounter Start Date: 09/06/17 Encounter Start Time: 13:21 Subjective: more awake today but with periods of hallucinations in between -: no seizures/shakes per nursing - Objective Resuscitation Status: Resuscitation Status FULL:Full Resuscitation MAR Reviewed: Yes Vital Signs & Weight: Vital Signs (12 hours) Temp Pulse Resp BP BP BP Pulse Ox 09/06/17 12:00 98.9 F 92 18 118/72 94 L 09/06/17 09:02 104 H 173/86 H 09/06/17 09:01 104 H 173/86 H 09/06/17 08:00 99.1 F 104 H 18 96 09/06/17 07:43 99.1 F 104 H 18 173/86 H 96 09/06/17 03:42 99.3 F 95 16 138/88 98 Weight Admit Weight 112 lb 8 oz Weight 106 lb 14.787 oz I&O: 09/05/17 09/06/17 09/07/17 06:59 06:59 06:59 Intake Total 350 750 Balance 350 750 Result Diagrams: 09/05/17 05:36 09/05/17 05:36 Additional Labs: Laboratory Tests 09/02/17 09/03/17 09/04/17 16:17 03:23 06:24 Hgb 8.5 L 6.3 L 10.1 L 09/05/17 05:36 Hgb 10.3 L Phys Exam - Physical Examination Constitutional: NAD HEENT: PERRLA, moist MMs, sclera anicteric, oral pharynx no lesions Neck: no nodes, no JVD, supple, full ROM Respiratory: no wheezing, no rales, no rhonchi, clear to auscultation bilateral Cardiovascular: RRR, no significant murmur Gastrointestinal: soft, non-tender, no distention, positive bowel sounds Musculoskeletal: no edema, pulses present Neurological: non-focal, normal sensation, moves all 4 limbs Psychiatric: normal affect Skin: no rash Dx/Plan (1) Delirium Code(s): R41.0 - DISORIENTATION, UNSPECIFIED Status: Acute Comment: patricia alcohal withdrawl.Baseline unkown.?Wernicke's.On Thiamine (2) Breakthrough seizure Code(s): G40.919 - EPILEPSY, UNSP, INTRACTABLE, WITHOUT STATUS EPILEPTICUS Status: Acute (3) H/O malignant neoplasm of breast Code(s): Z85.3 - PERSONAL HISTORY OF MALIGNANT NEOPLASM OF BREAST Status: Acute (4) Alcohol abuse Code(s): F10.10 - ALCOHOL ABUSE, UNCOMPLICATED Status: Chronic Comment: Pt is non compliance with advice to quit alcohol, increasing risk for recurrent sizures. Will strt paitent on thiamine and Foilic acid. (5) Hypertension Code(s): I10 - ESSENTIAL (PRIMARY) HYPERTENSION Status: Chronic Qualifiers: Comment: Continue her home meds, well controlled. (6) Hypothyroidism Code(s): E03.9 - HYPOTHYROIDISM, UNSPECIFIED Status: Chronic Qualifiers: (7) Macrocytic anemia Code(s): D53.9 - NUTRITIONAL ANEMIA, UNSPECIFIED Status: Chronic Comment: Pt had Drop in her Hb today to 6.3, will do 2 untis PRBC, check retic count and iron level, pt is severely malniurished, likely nutrition cause too. (8) Seizure disorder Code(s): G40.909 - EPILEPSY, UNSP, NOT INTRACTABLE, WITHOUT STATUS EPILEPTICUS Status: Chronic Comment: Consulted Neurology, restrted her Carbamazepine, Need complaince with her meds, no siezures today, pt is very weak and emaciated. continue to Monitor her . (9) Tobacco abuse Code(s): Z72.0 - TOBACCO USE Status: Chronic (10) Malnutrition Code(s): E46 - UNSPECIFIED PROTEIN-CALORIE MALNUTRITION Status: Acute Qualifiers: Malnutrition type: protein-calorie malnutrition Protein-calorie malnutrition severity: severe Qualified Code(s): E43 - Unspecified severe protein-calorie malnutrition - Plan PT/OT, out of bed/ambulate, DVT proph w/SCDs hemodynamically stable.remains high risk for etoh withdrawl. -: will monitor overnight w DC home if cognition better by tomorrow. -: cont Tegretol.home meds as below * . Review of Systems - Review of Systems Constitutional: negative: fever, chills, sweats, weakness, malaise, other Respiratory: Cough. negative: Dry, Shortness of Breath, Hemoptysis, SOB with Excertion, Pleuritic Pain, Sputum, Wheezing Cardiovascular: negative: chest pain, palpitations, orthopnea, paroxysmal nocturnal dyspnea, edema, light headedness, other Gastrointestinal: negative: Nausea, Vomiting, Abdominal Pain, Diarrhea, Constipation, Melena, Hematochezia, Other Genitourinary: negative: Dysuria, Frequency, Incontinence, Hematuria, Retention , Other Musculoskeletal: Leg Pain. negative: Neck Pain, Shoulder Pain, Arm Pain, Back Pain, Hand Pain, Foot Pain, Other Neurological: negative: Weakness, Numbness, Incoordination, Change in Speech, Confusion, Seizures, Other - Medications/Allergies Allergies/Adverse Reactions: Allergies Allergy/AdvReac Type Severity Reaction Status Date / Time Gadolinium-Containing AdvReac Mild Emesis Verified 09/02/17 22:18 Contrast Medi JOYA Allergy Uncoded 09/02/17 22:18 Medications: Current Medications Hydrocodone Bitart/Acetaminophen ([place] 5/325) 1 tab PO Q4H PRN PRN Reason: Moderate Pain (4-6) Hydrocodone Bitart/Acetaminophen ([place] 7.5/325) 1 tab PO Q4H PRN PRN Reason: Moderate Pain (4-6) Amlodipine Besylate (Norvasc) 5 mg PO DAILY [facility] Last Admin: 09/06/17 09:02 Dose: 5 mg Carbamazepine (Tegretol) 200 mg PO TID [facility] Last Admin: 09/06/17 09:02 Dose: 200 mg Clonidine (Catapres) 0.1 mg PO Q4H PRN PRN Reason: SBP>160 Enoxaparin Sodium (Lovenox) 40 mg SC 0900 [facility] Last Admin: 09/06/17 09:02 Dose: 40 mg Famotidine (Pepcid) 20 mg PO BID [facility] Last Admin: 09/06/17 09:01 Dose: 20 mg Folic Acid (Folvite) 1 mg PO DAILY [facility] Last Admin: 09/06/17 09:01 Dose: 1 mg Lisinopril/HCTZ (Prinizide 20-12.5) 1 tab PO DAILY [facility] Last Admin: 09/06/17 09:01 Dose: 1 tab Hydralazine HCl (Apresoline) 10 mg SLOW IVP Q4H PRN PRN Reason: SBP>170 Last Admin: 09/04/17 17:48 Dose: 10 mg Lorazepam (Ativan) 1 mg SLOW IVP Q4H PRN PRN Reason: Anxiety/Agitation Metoprolol Succinate (Toprol Xl) 50 mg PO DAILY [facility] Last Admin: 09/06/17 09:01 Dose: 50 mg Ondansetron HCl (Zofran) 4 mg IVP Q6H PRN PRN Reason: Nausea/Vomiting Pantoprazole Sodium (Protonix) 40 mg PO DAILY [facility] Last Admin: 09/06/17 09:01 Dose: 40 mg Sodium Chloride (Flush - Normal Saline) 10 ml IVF Q12HR [facility] Last Admin: 09/06/17 09:02 Dose: 10 ml Sodium Chloride (Flush - Normal Saline) 10 ml IVF PRN PRN PRN Reason: Saline Flush Spironolactone (Aldactone) 25 mg PO QAM-WM [facility] Last Admin: 09/06/17 09:01 Dose: 25 mg Thiamine HCl (Thiamine) 100 mg PO DAILY [facility] Last Admin: 09/06/17 09:01 Dose: 100 mg
[2017-09-06] MEDS ORDERED: guaiFENesin ER 600 MG TAB PO SCH (13:30)
[2017-09-06] MEDS: guaiFENesin ER 600 MG TAB PO SCH (21:48)
[2017-09-06] MEDS: HYDROcodone/Acetaminophen 7.5/325 mg Tablet PO PRN (21:49)
[2017-09-07] MEDS: HYDROcodone/Acetaminophen 7.5/325 mg Tablet PO PRN (01:52)
[2017-09-07] MEDS: Enoxaparin Sodium 40 MG/0.4 ML SYRINGE SC SCH (08:13)
[2017-09-07] MEDS: Famotidine 20 MG TAB PO SCH (08:14)
[2017-09-07] MEDS: carBAMazepine 200 MG TAB PO SCH (08:14)
[2017-09-07] MEDS: Amlodipine 5 MG TAB PO SCH (08:14)
[2017-09-07] MEDS: Folic Acid 1 MG TAB PO SCH (08:15)
[2017-09-07] MEDS: Lisinopril/Hydrochlorothiazide 20 mg/12.5 mg Tablet PO SCH (08:15)
[2017-09-07] MEDS: guaiFENesin ER 600 MG TAB PO SCH (08:15)
[2017-09-07] MEDS: Spironolactone 25 MG TAB PO SCH (08:16)
[2017-09-07 09:46] VITALS: BP 106/60; TEMP 97.7
--- NOTE | 2017-09-07 12:07 | DIS ---
DATE OF ADMISSION: 09/02/2017 DATE OF DISCHARGE: 09/07/2017 CONDITION AT THE TIME OF DISCHARGE: Stable, improved. DISCHARGE DISPOSITION: Home with home health. DISCHARGE DIAGNOSES: 1. Breakthrough seizures. 2. Seizure disorder. 3. Alcohol withdrawal delirium. 4. History of breast cancer. 5. Chronic alcohol abuse. 6. Hypertension. 7. Hyperthyroidism. 8. Macrocytic anemia, likely due to thiamine and folic acid deficiency. 9. Tobacco abuse. 10. Severe protein-calorie malnutrition. DISCHARGE MEDICATIONS: Ferrous sulfate 325 mg in the morning, Aldactone 25 mg daily, folic acid 1 mg daily, Tegretol dose was increased to 200 mg p.o. t.i.d., thiamine 100 mg daily, Toprol-XL 50 mg rafael ly, lisinopril/hydrochlorothiazide 20/12.5 mg daily, folic acid 1 mg daily, and amlodipine dose has b een increased from 2.5 to 5 mg p.o. daily. PRIMARY CARE PHYSICIAN: Amanda Faulkner. CONSULTATIONS: Inhouse include Neurology, Dr. Cayetano Lynn. PROCEDURES IN THE HOSPITAL: Include chest x-ray upon presentation, which is unremarkable. HISTORY OF PRESENTING ILLNESS: Ms. Oconnell is a 67-year-old female with past medical history of seizu re disorder, anemia of chronic kidney disease, hypertension, chronic kidney disease, breast cancer an d ongoing alcohol abuse who presented to the emergency room after she was found to be having a genera lized tonic clonic seizures witnessed by her family. EMS was called and she actually had 1 more epis ode of seizure per the EMS. Upon presentation, it was found out that she has been skipping her more medication dosages and her Tegretol level was really low. She was admitted to stroke floor with acut e tonic clonic seizures and acute metabolic encephalopathy secondary to that. She was otherwise hemo dynamically stable, but was admitted to [facility] initially for the poorly controlled seizures. She was s tarted on seizure precaution. p.r.n. Ativan and Neurology was consulted. Please see admission histo ry and physical for further details. HOSPITAL COURSE: The patient was seen by Dr. Gerard from Pulmonary Medicine and Critical Care as she was in the [facility]. He agreed with the continued care and she was moved shortly out of the [facility] to [facility] stroke floor. She did have some drop in her hemoglobin from 8.5-6.3 for which she received RBC transfusion and sinc e then her hemoglobin stayed in the 10 range. She has known history of anemia of chronic kidney dise ase with a workup for GI bleed in the past unremarkable. She was seen by Neurology, Dr. Lynn for a question of breakthrough seizures. He increased her Teg retol to 200 mg 3 times a day from twice a day and after that the patient had no seizures while in [facility]. She had somewhat postictal encephalopathy as well as alcohol withdrawal delirium and hallucination fo r which she was watched over for few days while in the hospital. On the day of discharge, she is jean-claude k to her baseline and is awake, alert and oriented x3. She was seen and examined prior to discharge. PHYSICAL EXAMINATION: Include; VITAL SIGNS: Temperature 97.7, pulse 76, respirations 16, saturating 93% to 97% on room air, blood p ressure 121/73. GENERAL: No acute distress. Awake, alert, oriented x3. CHEST: Clear to auscultation bilaterally. No wheezing, rales or rhonchi. Rate and rhythm is regula r. NEUROLOGIC: Nonfocal. LABORATORY DATA: CBC shows WBC 6.3, hemoglobin 10.3 and platelet count 156. Serum chemistries unrem arkable. Her iron, TIBC and percent saturation were checked and were normal. Her free T3 and T4 upt mayte were essentially normal as well. She had mild elevation of AST to 71 and alkaline phosphatase to 157, otherwise unremarkable. Her urine drug screen was negative. Her carbamazepine level on presen tation was 4.5. I discussed the alcohol abstinence with the patient and she is agreeable. She will be discharged [facility] with [facility], which has been set up for her. Her mother will be here stella rtly to pick her up. She has encouraged to call and make appointment with the primary care physician followup appointment.
== END 2017-09-07 13:15 | disposition home health service (06) | DRG 100 ==
LOC: ERS 15:53 → IMCU/EMU 19:49 → 2NO 09-04 05:32 → ONC 09-04 15:58
PROVIDERS: ADMIT Family Medicine; ATTEND Family Medicine
PROC: 30233N1 Transfusion of Nonautologous Red Blood Cells into Peripheral Vein, Percutaneous Approach (ICD-10-PCS; principal; 2017-09-02)
DX: G40.409 Other generalized epilepsy and epileptic syndromes, not intractable, without status epilepticus (principal); G93.41 Metabolic encephalopathy; E43 Unspecified severe protein-calorie malnutrition; F10.231 Alcohol dependence with withdrawal delirium; E51.9 Thiamine deficiency, unspecified; Z68.1 Body mass index [BMI] 19.9 or less, adult; I42.6 Alcoholic cardiomyopathy; N18.3 Chronic kidney disease, stage 3 (moderate); D63.8 Anemia in other chronic diseases classified elsewhere; I12.9 Hypertensive chronic kidney disease with stage 1 through stage 4 chronic kidney disease, or unspecified chronic kidney disease; Z85.3 Personal history of malignant neoplasm of breast; E03.9 Hypothyroidism, unspecified; E53.8 Deficiency of other specified B group vitamins; Z96.642 Presence of left artificial hip joint; F17.210 Nicotine dependence, cigarettes, uncomplicated; Z91.041 Radiographic dye allergy status; Z91.14 Patient's other noncompliance with medication regimen
CPT/HCPCS: 36415; 36430; 51701; 71045; 80048; 80053; 80156; 80306; 80307; 81003; 82553; 83540; 83550; 83735; 83880; 84146; 84436; 84479; 84484; 85025; 85046; 86850; 86900; 86901; 93005; 94760; 96360; 96361; A4216; A4353; G8978-GP-CN; G8979-GP-CK; G8987-GO-CM; G8988-GO-CI; J0360; J1650; J3475; J7050; P9016; S0028

== ENCOUNTER 2018-03-09 12:18 | Inpatient (IN) | payer MEDICARE ==
[2018-03-09] MEDS ORDERED: Fentanyl 100 MCG/2 ML VIAL ONE (12:48)
[2018-03-09 13:02] LABS: Hemoglobin 4.3 g/dL (12.0-16.0); Mean Corpuscular HGB CONC 32.9 g/dL (32.0-36.0); Mean Corpuscular Hemoglobin 37.2 pg (27.0-31.0); Mean Platelet Volume 6.5 fL (7.4-10.4); Platelet Count 247 thou/uL (130-400); RBC Distribution Width 15.9 % (11.5-14.5); Red Blood Cell (RBC) Count 1.16 mill/uL (4.20-5.40); White Blood Cell (WBC) Count 3.4 thou/uL (4.8-10.8)
[2018-03-09 13:05] LABS: ALT (SGPT) 9 U/L (8-55); AST (SGOT) 22 U/L (5-34); Albumin 3.1 g/dL (3.4-4.8); Alkaline Phosphatase 75 U/L (40-150); Anion Gap 23 mmol/L (10-20); BUN (Urea Nitrogen) 31 mg/dL (9.8-20.1); Bilirubin, Total 0.3 mg/dL (0.2-1.2); CK (CPK) 62 U/L (29-168); Calc. Creatinine Clearance 0 mL/min (70-130); Calcium 8.1 mg/dL (7.8-10.44); Carbon Dioxide 17 mmol/L (23-31); Chloride 103 mmol/L (98-107); Estimated GFR-MDRD 55; Globulin 2.2 g/dL (2.4-3.5); Glucose 112 mg/dL (80-115); Lipase 32 U/L (8-78); Potassium 4.5 mmol/L (3.5-5.1); Protein, Total 5.3 g/dL (6.0-8.3); Sodium 138 mmol/L (136-145)
[2018-03-09 13:08] LABS: CKMB 4.1 ng/mL (0-6.6); Troponin I 0.063 ng/mL (< 0.028)
[2018-03-09 13:32] LABS: #Eosinphils 0.1 thou/uL (0.0-0.7); #Lymphocytes 0.4 thou/uL (1.20-3.40); #Monocytes 0.3 thou/uL (0.11-0.59); #Neutrophils 2.7 thou/uL (1.40-6.50); %Basophils 0.3 % (0.0-1.0); %Eosinophils 2.2 % (0.0-10.0); %Lymphocytes 11.2 % (21.0-51.0); %Monocytes 8.1 % (0.0-10.0); %Neutrophils 78.2 % (42.0-75.0); Anisocytosis SLIGHT = 6-15 cells (100X) (0-5/hpf); MDiff Complete? YES; PLT Morphology Comment Appears Adequate
[2018-03-09] MEDS ORDERED: Pantoprazole 40 MG VIAL IVP SCH (13:45)
[2018-03-09] MEDS ORDERED: Multivitamins, Adult 10 ML, Thiamine HCl 100 MG, Folic Acid 1 MG in Dextrose 5 %-0.45 %... IV ONE (13:45)
[2018-03-09 13:46] LABS: Iron 21 ug/dL (50-170); Iron Binding Capacity, Total 273 mcg/dL (265-497)
[2018-03-09 13:50] LABS: PTT 27.8 SEC (22.9-36.1); Prothrombin Time 13.2 SEC (12.0-14.7)
[2018-03-09] MEDS ORDERED: Pantoprazole 40 MG VIAL ONE (14:08)
--- NOTE | 2018-03-09 15:24 | CT ---
CT OF THE CHEST AND ABDOMEN AND PELVIS WITH IV CONTRAST: INDICATION: A 67-year-old female with hypotension and malaise. COMPARISON: CT of the abdomen and pelvis dated 11/24/16. FINDINGS: There is moderate to severe emphysema. There are areas of subsegmental volume loss of both lower lob es. There is a sub-4 mm pulmonary nodule within the right upper lobe on image 20 of series 3. There are scattered vascular calcifications. Shotty-appearing lymph nodes within the axillary regions, le ft greater than right. No pathologically enlarged lymph nodes are evident. The liver, pancreas, and adrenal glands appear within normal limits. The spleen is within normal cool its. There a very subtle hypodense mass lesion in the region of the pancreatic head seen on image 64 of series 2. This was not definitely seen on the comparison examination in 2017. There is some mil d intrahepatic biliary ductal dilatation. There is no apparent dilatation of the main pancreatic shanti t. The visualized kidneys are normal-appearing. There is wall thickening involving the ascending colon that appears slightly less prominent than on t he comparison examination. No appreciable ileal thickening is seen as on the comparison examination. No drainable fluid collection is evident. Postsurgical change of the left acetabulum and left proximal femur appears similar. There is diffuse osteopenia. Prominent Schmorl's node involving the superior aspect of L2 is stable. There are wedge compression abnormalities involving T2, T5, and T9 which were not present on an MRI thoracic spine exam dated 09/20 . IMPRESSION: 1. Hypodense mass lesion involving the pancreatic head is nonspecific. A followup CT of the abdomen utilizing a pancreatic mass protocol is recommended for additional characterization. 2. Compression abnormalities involving T2, T5, and T9 of undetermined chronicity. These are new fro m a comparison examination dated 09/29/16. 3. Moderate to severe emphysema. 4. Wall thickening involving the ascending colon may reflect a mild colitis. Recommend correlation. 5. Other chronic findings as above. CODE T POS: [facility]
--- NOTE | 2018-03-09 15:25 | RAD ---
AP VIEW OF THE CHEST: INDICATION: History of hypotension. FINDINGS: Chronic lung changes and cardiomegaly are stable to a comparison dated 09/02/17. Mild compression ab normality is seen involving the T5 vertebral level which is new from the comparison exam. Vascular c alcification involving aortic arch is stable. IMPRESSION: 1. No acute cardiopulmonary abnormality. 2. Stable chronic obstructive pulmonary disease and cardiomegaly. 3. New interval development of a wedge compression abnormality of T5 of undetermined chronicity. POS: [facility]
[2018-03-09 16:08] LABS: Troponin I 0.055 ng/mL (< 0.028)
[2018-03-09 17:22] VITALS: BMI 19.3
[2018-03-09] MEDS ORDERED: Lorazepam 1 MG TAB PO PRN (18:29)
[2018-03-09] MEDS ORDERED: Lorazepam 2 MG/ML VIAL SLOW IVP PRN (18:29)
[2018-03-09] MEDS ORDERED: hydrALAZINE 20 MG/ML VIAL SLOW IVP PRN (18:29)
[2018-03-09] MEDS ORDERED: Mag-Al 1200 mg/1200 mg/30 ML UDCUP PO PRN (18:29)
[2018-03-09] MEDS ORDERED: traMADol HCl 50 MG TAB PO PRN (18:29)
[2018-03-09] MEDS ORDERED: Milk Of Magnesia 30 ML UDCUP PO PRN (18:29)
[2018-03-09] MEDS ORDERED: Folic Acid 1 MG TAB PO SCH (18:45)
[2018-03-09] MEDS ORDERED: Multivit, Therapeutic 1 TAB PO SCH (18:45)
[2018-03-09] MEDS: carBAMazepine 200 MG TAB PO SCH (21:02)
[2018-03-09 22:16] LABS: Hemoglobin 7.1 g/dL (12.0-16.0); Platelet Count 179 thou/uL (130-400)
--- NOTE | 2018-03-09 23:42 | HP ---
PRIMARY CARE PHYSICIAN: Dr. Guajardo. CHIEF COMPLAINT: "My chest, back and legs were hurting." HISTORY OF PRESENT ILLNESS: Ms. Oconnell is a pleasant 67-year-old female that has a history of alcoho lism. She also has a history of chronic anemia, which is thought to be secondary to bone marrow supp ression from drinking. She was in her usual state of health until about a week ago when she started having some hurting in her back and legs, which she said was off and on and then lately it had gotten worse. She also noted a little bit of headache as well as some pain in her chest and as a result, s he came to the emergency room for evaluation. In the ER, she was found to have a hemoglobin of 4.3 a nd hematocrit of 13.1. She is being admitted for further evaluation. She admits to continuing to dr fairchild. She says she drinks anywhere from 5-6 white alcohol drinks a day and when asked to clarify that further she says it is either gin or vodka. She denies any abdominal pain, but does say that she do es not eat very much. She says sometimes she can go all day long without eating and knows that this is a problem. She denies any vomiting or hematemesis, no melena or dark stools and she is being plac ed in observation for blood transfusion. In review of her records, she has had hemoglobins in this r juana before and this is dating back to 2016. She has been evaluated by Hematology in the past. She has also had workup for GI in the past which had been negative. REVIEW OF SYSTEMS: All systems were reviewed and are negative except for that mentioned in the histo ry of present illness. PAST MEDICAL HISTORY: Significant for hypertension; alcoholism; chronic anemia, which is macrocytic; chronic kidney disease, stage 3; breast cancer; hypothyroidism; and folic acid deficiency. PAST SURGICAL HISTORY: She has had a hysterectomy and a left hip replacement. SOCIAL HISTORY: She lives at home with her brother and her mother. She continues to smoke about a p ack a day. She does drink 5-6 drinks a day, usually gin or vodka. She admits that she should quit, but has not made a recent effort. She says she has tried quitting 2 or 3 times in the past, which sun s been unsuccessful and she knows the consequences of continued drinking. CODE STATUS: FULL CODE. FAMILY HISTORY: Significant for alcoholism. She says everybody in her family drinks. She says that her father as a result of alcohol disease. ALLERGIES: GADOLINIUM CONTRAST. CURRENT MEDICATIONS: Lisinopril/hydrochlorothiazide 20/12.5, amlodipine 5 mg daily, Aldactone 25 mg daily, Tegretol 200 mg 3 times a day. PHYSICAL EXAMINATION: GENERAL: She is alert and oriented. She is very cachectic in appearance and has some temporal and f acial muscle wasting. VITAL SIGNS: Blood pressure was 100/60, heart rate is 96, respiratory rate of 16, temperature is 98. HEENT: Pupils are equal, round, and reactive. Extraocular muscles are intact. Her sclerae are anic teric; however, but they are pale. Throat: She has got poor dentition. NECK: No adenopathy, no bruits. LUNGS: Clear to auscultation. There was no wheezing, no rales. CARDIOVASCULAR: She has a normal S1, S2. I did not appreciate an S3 or S4. She did have a grade 2/ 6 systolic murmur. ABDOMEN: Slightly obese, it is nontender, nondistended. Positive for bowel sounds. No rebound or g uarding. EXTREMITIES: There is no edema. She has got significant muscle wasting and atrophy and 2+ pulses. NEUROLOGIC: The exam is nonfocal except she does have some short-term memory difficulties. LABORATORY DATA: Her sodium was 138, potassium 4.5, chloride is 103, CO2 of 17, BUN of 31, creatinin e 1.2, glucose is 112. Troponin is 0.063. White blood cell count 3.4, hemoglobin 4.3, hematocrit is 13.1, platelet count was 247. ASSESSMENT AND PLAN: 1. This is a pleasant 67-year-old female that presents to the emergency room with profound anemia. She has had significant anemia before which has been evaluated and found to be related to bone marrow suppression from alcoholism. She will be placed in observation and transfused 2 units. Once again counseled her on the need to quit drinking, she understands this and says she may give it one more tr y. Also, we will place her on Ativan as needed for DT prophylaxis, thiamine and folate as well as a proton pump inhibitor and we will recheck her in the morning and likely she can be discharged home to [place]. 2. Hypertension. Currently, her blood pressure is low. Therefore, we will hold her usual antihyper tensive medications and given the severe anemia, we will hold off on any type of DVT prophylaxis othe r than SCDs.
[2018-03-10 04:42] LABS: #Eosinphils 0.1 thou/uL (0.0-0.7); #Lymphocytes 0.4 thou/uL (1.20-3.40); #Monocytes 0.3 thou/uL (0.11-0.59); #Neutrophils 1.8 thou/uL (1.40-6.50); %Eosinophils 4.5 % (0.0-10.0); %Lymphocytes 16.9 % (21.0-51.0); %Monocytes 10.3 % (0.0-10.0); %Neutrophils 68.3 % (42.0-75.0); Hemoglobin 7.1 g/dL (12.0-16.0); Mean Corpuscular HGB CONC 34.2 g/dL (32.0-36.0); Mean Corpuscular Hemoglobin 34.5 pg (27.0-31.0); Mean Platelet Volume 6.6 fL (7.4-10.4); Platelet Count 182 thou/uL (130-400); RBC Distribution Width 17.1 % (11.5-14.5); Red Blood Cell (RBC) Count 2.05 mill/uL (4.20-5.40); White Blood Cell (WBC) Count 2.6 thou/uL (4.8-10.8)
[2018-03-10] MEDS ORDERED: Spironolactone 25 MG TAB PO SCH (08:00)
[2018-03-10] MEDS ORDERED: Prevnar 13-Val Conj/PF 0.5 ML SYRINGE IM ONE (09:00)
[2018-03-10] MEDS ORDERED: Multivit, Therapeutic 1 TAB PO SCH (09:00)
[2018-03-10] MEDS ORDERED: Folic Acid 1 MG TAB PO SCH (09:00)
[2018-03-10] MEDS: carBAMazepine 200 MG TAB PO SCH ×2 (09:23→14:43)
--- NOTE | 2018-03-10 11:18 | PDOC.PN ---
- Subjective Encounter Start Date: 03/10/18 Encounter Start Time: 11:16 Ms. Oconnell was seen today in follow-up. She is feeling much better. She says that the pain she had in her legs has improved. She denies chest pain or shortness of breath. - Objective Resuscitation Status: Resuscitation Status FULL:Full Resuscitation MAR Reviewed: Yes Vital Signs & Weight: Vital Signs (12 hours) Temp Pulse Resp BP Pulse Ox 03/10/18 08:00 98.4 F 84 13 100 03/10/18 07:34 98.4 F 84 13 106/64 100 03/10/18 03:45 98.8 F 92 16 101/61 100 03/10/18 00:00 98.8 F 84 18 90/62 96 I&O: 03/09/18 03/10/18 03/11/18 06:59 06:59 06:59 Intake Total 200 Balance 200 Result Diagrams: 03/10/18 03:54 03/09/18 12:41 Phys Exam - Physical Examination HEENT: PERRLA Respiratory: no wheezing, no rales, no rhonchi, clear to auscultation bilateral Cardiovascular: RRR, no significant murmur, no rub Gastrointestinal: soft, non-tender, positive bowel sounds Musculoskeletal: no edema Dx/Plan (1) Malnutrition Code(s): E46 - UNSPECIFIED PROTEIN-CALORIE MALNUTRITION Status: Acute Qualifiers: (2) Symptomatic anemia Code(s): D64.9 - ANEMIA, UNSPECIFIED Status: Acute (3) Alcohol abuse Code(s): F10.10 - ALCOHOL ABUSE, UNCOMPLICATED Status: Chronic Comment: Pt is non compliance with advice to quit alcohol, increasing risk for recurrent sizures. Will strt paitent on thiamine and Foilic acid. (4) Hypertension Code(s): I10 - ESSENTIAL (PRIMARY) HYPERTENSION Status: Chronic Qualifiers: Comment: Continue her home meds, well controlled. (5) Macrocytic anemia Code(s): D53.9 - NUTRITIONAL ANEMIA, UNSPECIFIED Status: Chronic Comment: Pt had Drop in her Hb today to 6.3, will do 2 untis PRBC, check retic count and iron level, pt is severely malniurished, likely nutrition cause too. - Plan * Acute on chronic macrocytic Anemia due to alcohol abuse- stool for occult blood was negative, she has improved after transfusion * Stable for discharge home later today, if she can ambulate * HTN- blood pressure is low- hold on blood pressure medication until re- checked by her Primary Care Physician * Seizure- continue home medications * Alcohol Cessation was discussed * .
[2018-03-10 16:39] VITALS: BP 98/66; TEMP 98.7
--- NOTE | 2018-03-10 20:08 | CON ---
DATE OF CONSULTATION: 03/10/2018 SERVICE: Pulmonary Medicine. INTERVAL HISTORY: The patient is a 67-year-old -[place] female with past medical history sig nificant for severe alcoholism and possible cognitive impairment. She was in her usual state of heal th until a couple of weeks ago when started having increasing fatigue, malaise, and completely lack o f energy. She was "hurting all over." She was having some dyspnea that limited her activity. That being said, she did not have any fevers, chills, cough, nausea, vomiting or diarrhea. She has been l osing any blood. She denies any hemoptysis, hematemesis, black, tarry sticky stools, or chest discom fort. She presented to the Emergency Department once again found to be anemic. Overnight, she was gi adenike 2 units of blood. She made a very nice response to the blood and essentially feels back to gaurang l. She does not have any dizziness upon standing at this point. She is able to walk more fully. PAST MEDICAL HISTORY: 1. Alcoholism, severe. 2. Protein calorie malnutrition. 3. Hypertension. 4. Pancytopenia. 5. Chronic kidney disease, stage 3. 6. Hypothyroidism. 7. Folic acid deficiency (not currently taking any supplements). 8. Breast cancer. PAST SURGICAL HISTORY: 1. Hysterectomy. 2. Left hip replacement. ALLERGIES: GADOLINIUM containing contrast. MEDICATIONS: List of inpatient medications were reviewed. No specific updates were made. FAMILY HISTORY: Noncontributory. SOCIAL HISTORY: Positive for very significant alcohol use. She smokes a pack of cigarettes on a rafael ly basis and has greater than [id number] history of smoking. She drinks 6 gin or vodka on a daily basis. She denies any street drugs. She has no exposure to chemicals, dust asbestos or tuberculosis . REVIEW OF SYSTEMS: General, head, ears, eyes, nose, throat, cardiovascular, respiratory, GI, , mus culoskeletal, neurologic, and skin is negative except as mentioned in the HPI. PHYSICAL EXAMINATION: VITAL SIGNS: Afebrile, pulse 87, blood pressure 94/61, respirations 12, and saturation 100% on room air. GENERAL: The patient is awake, alert, in no apparent distress. LUNGS: Good air entry bilaterally with no wheezing, rhonchi, or crackles. HEART: Normal rate, regular. ABDOMEN: Soft, nontender, nondistended. Bowel sounds are positive. MUSCULOSKELETAL: No cyanosis or clubbing. GENITOURINARY: No Moses. NEUROLOGICAL: Grossly nonfocal. LABORATORY DATA: WBC 2.6, hemoglobin 7.1, platelets of 182,000. INR 1.0. Creatinine 1.2. Basic in tabolic profile and liver function studies are otherwise unremarkable. Cardiac enzymes are down tren ding to 0.055. Iron is low. Ferritin is also at the lower limits of normal. Lactic acid is unremar kable. Blood cultures x2 are negative. Fecal occult blood is negative. IMAGING: CT of the chest demonstrates nonspecific pancreatic head lesion is present. IMPRESSION: Abnormalities are present in the bones. Severe emphysema is identified. ASSESSMENT: 1. Chronic obstructive pulmonary disease without current exacerbation. 2. Alcohol abuse. 3. Tobacco abuse. 4. Pancytopenia, possibly secondary to alcohol abuse. 5. Symptomatic anemia. DISCUSSION AND PLAN: The patient is stable for transition out of the hospital. I have counseled her to abstain from alcohol, and cigarette smoke. The patient indicates to me that she has no intention of doing this. I have encouraged her to take a multivitamin on a daily basis that contains many dif ferent B vitamins. Previously, she was noted to have folate deficiency, but she is not currently on any supplements. I have asked her to get back on these things. If she remains in the [facility], I will c ontinue follow up. Otherwise, I will sign off.
[2018-03-10] MEDS ORDERED: Ammonium Lactate 12% Lotion 225 GM BOT TOP SCH (21:00)
--- NOTE | 2018-03-11 01:22 | DIS ---
DATE OF ADMISSION: 03/09/2018 DATE OF DISCHARGE: 03/10/2018 DISCHARGE DISPOSITION: Home. PRIMARY DISCHARGE DIAGNOSES: 1. Acute on chronic macrocytic anemia. 2. Symptomatic anemia. 3. Alcohol abuse. 4. Hypertension. 5. Chronic kidney disease stage 3. 6. History of breast cancer. 7. Hypothyroidism. 8. Folic acid deficiency. DISCHARGE MEDICATIONS: Thiamine 100 mg daily, folic acid 1 mg daily, Aldactone 25 mg daily, multivit delatorre once daily, Tegretol 200 mg t.i.d., amlodipine 5 mg daily and lisinopril/hydrochlorothiazide / 12.5. Please note that the amlodipine, hydrochlorothiazide, lisinopril, are on hold due to low blood pressure and can be restarted at the discretion of her primary care physician. CODE STATUS: FULL CODE. ALLERGIES: GADOLINIUM containing contrast. HOSPITAL COURSE: Ms. Oconnell is a pleasant 67-year-old female who came to the emergency room complain ing of back, leg and chest pains. She was found to have a very severe anemia with hemoglobin of 4.8. She has a known history of macrocytic anemia requiring transfusions in the past which has been due to bone marrow suppression secondary to alcohol. She was admitted and transfused 2 units of packed R BCs. Her hemoglobin went from 4.8-7.1. Following the transfusion, she was symptomatically much impr magnus. Alcohol abstinence was discussed once again. The patient also was guaiac negative with no occ ult blood in the stool and as such she was able to be discharged home with close outpatient followup.
--- NOTE | 2018-03-11 22:57 | PQF ---
DIONISIO VALADEZ TONI MD [id number] CLINICAL DOCUMENTATION CLARIFICATION FORM: POST DISCHARGE Addendum to original discharge summary date: ____ Late entry note date: __ Date: 03/11/18 ATTN: ROGER SHEPPARD MD Please exercise your independent, professional judgment in responding to the clarification form. Clinical indicators are provided on the bottom of this form for your review Please check appropriate box(s): [ ] Protein Calorie Malnutrition: [ ] Mild [ ] Moderate [ ] Severe [ ] Other Malnutrition (please specify) __ [ ] Underweight without malnutrition [ ] Cachexia [ ] Other diagnosis [ ] Unable to determine In addition, please specify: Present on Admission (POA): [ ] Yes [ ] No [ ] Unable to determine CLINICAL INDICATORS - SIGNS / SYMPTOMS / LABS BMI of 19.4 PHYSICAL EXAMINATION: Cachetic in appearance, has some temporal and facial muscle wasting. Significant muscle wasting and atrophy and 2+ pulses PAST MEDICAL HISTORY: Protein calorie malnutrition PN Malnutrition Severely malnourished RISK FACTORS Change in appetite / nausea / vomiting / diarrhea Nutritional Anemia Moderate Malnutrition (in acute illness) Energy Intake: <75% of estimated energy requirement for > 7 days Weight Loss: 1-2%/1 week; 5%/ 1 month; 7.5%/3 months Other: mild body fat loss; mild muscle mass loss; mild fluid accumulation; Severe Malnutrition (in acute illness) Energy Intake: < 50% of estimated energy requirement for > 5 days Weight Loss: >1-2%/1 week; >5%/1 month; >7.5%/3 months Other: moderate body fat loss; moderate muscle mass loss; moderate- severe fluid accumulation; measurably reduced investigative assistant strength Moderate Malnutrition (in chronic illness) Energy Intake: <75% of estimated energy requirement for >1 month Weight Loss: 5%/1 month; 7.5%/3 months; 10%/6 months; 20%/1 year Other: mild body fat loss; mild muscle mass loss; mild fluid accumulation Severe Malnutrition (in chronic illness) Energy Intake: <75% of estimated energy requirement for >1 month Weight Loss: >5%/1 month; >7.5%/3 months; >10%/6 months; >20%/1 year Other: severe body fat loss; severe muscle mass loss; severe fluid accumulation ; measurably reduced investigative assistant strength (This form is maintained as a part of the permanent medical record) 2014 [employer]. All Rights Reserved Hunter [email or web address] [phone] [email or web address]
--- NOTE | 2018-03-16 13:47 | EKG ---
Test Reason : Blood Pressure : / mmHG Vent. Rate : 101 BPM Atrial Rate : 101 BPM P-R Int : 218 ms QRS Dur : 090 ms QT Int : 358 ms P-R-T Axes : 077 071 114 degrees QTc Int : 464 ms Sinus tachycardia with 1st degree A-V block Nonspecific ST and T wave abnormality Abnormal ECG Confirmed by JOSE DOAN, LUIS EDUARDO ([id number]), research editor HENNA OSBORN ([id number]) on 03/16/2018 1:47:13 PM Referred By: Confirmed By:LUIS EDUARDO GARCIA MD
== END 2018-03-10 17:31 | disposition home or self-care (01) | DRG 812 ==
LOC: ERS 12:18 → IMCU/EMU 14:40
PROVIDERS: ADMIT Internal Medicine; ATTEND Internal Medicine
PROC: 30233N1 Transfusion of Nonautologous Red Blood Cells into Peripheral Vein, Percutaneous Approach (ICD-10-PCS; principal; 2018-03-09)
DX: D53.9 Nutritional anemia, unspecified (principal); E46 Unspecified protein-calorie malnutrition; D61.818 Other pancytopenia; Z68.1 Body mass index [BMI] 19.9 or less, adult; F10.20 Alcohol dependence, uncomplicated; Z91.19 Patient's noncompliance with other medical treatment and regimen; R56.9 Unspecified convulsions; F17.210 Nicotine dependence, cigarettes, uncomplicated; Z85.3 Personal history of malignant neoplasm of breast; E03.9 Hypothyroidism, unspecified; E53.8 Deficiency of other specified B group vitamins; I12.9 Hypertensive chronic kidney disease with stage 1 through stage 4 chronic kidney disease, or unspecified chronic kidney disease; E11.22 Type 2 diabetes mellitus with diabetic chronic kidney disease; N18.3 Chronic kidney disease, stage 3 (moderate); D63.1 Anemia in chronic kidney disease; J44.9 Chronic obstructive pulmonary disease, unspecified
CPT/HCPCS: 36415; 36430; 71045; 71260; 74177; 80053; 82274; 82553; 82728; 83540; 83550; 83605; 83690; 84484; 85025; 85610; 85730; 86850; 86900; 86901; 87040; 90471; 90670; 93005; 94760; 96361; 96365; 96366; 96375; C9113; G0009; J3010; J3411; J7042; P9016

== ENCOUNTER 2018-03-29 10:58 | Emergency (ER) | payer MEDICARE ==
[2018-03-29 11:38] LABS: Hemoglobin 7.9 g/dL (12.0-16.0); Mean Corpuscular HGB CONC 33.8 g/dL (32.0-36.0); Mean Corpuscular Hemoglobin 35.5 pg (27.0-31.0); Mean Platelet Volume 6.7 fL (7.4-10.4); Platelet Count 185 thou/uL (130-400); RBC Distribution Width 16.6 % (11.5-14.5); Red Blood Cell (RBC) Count 2.22 mill/uL (4.20-5.40); White Blood Cell (WBC) Count 2.8 thou/uL (4.8-10.8)
[2018-03-29 11:58] LABS: #Eosinphils 0.1 thou/uL (0.0-0.7); #Lymphocytes 0.4 thou/uL (1.20-3.40); #Monocytes 0.2 thou/uL (0.11-0.59); #Neutrophils 2.4 thou/uL (1.40-6.50); %Basophils 0.2 % (0.0-1.0); %Lymphocytes 12.2 % (21.0-51.0); %Monocytes 5.9 % (0.0-10.0); %Neutrophils 79.7 % (42.0-75.0)
[2018-03-29 12:09] LABS: ALT (SGPT) 16 U/L (8-55); AST (SGOT) 41 U/L (5-34); Albumin 3.7 g/dL (3.4-4.8); Alkaline Phosphatase 96 U/L (40-150); Anion Gap 18 mmol/L (10-20); BUN (Urea Nitrogen) 16 mg/dL (9.8-20.1); Bilirubin, Total 0.7 mg/dL (0.2-1.2); Calc. Creatinine Clearance 0 mL/min (70-130); Calcium 8.9 mg/dL (7.8-10.44); Carbon Dioxide 29 mmol/L (23-31); Chloride 100 mmol/L (98-107); Estimated GFR-MDRD 57; Globulin 2.5 g/dL (2.4-3.5); Glucose 109 mg/dL (80-115); Potassium 4.4 mmol/L (3.5-5.1); Protein, Total 6.2 g/dL (6.0-8.3); Sodium 143 mmol/L (136-145)
[2018-03-29 12:10] LABS: Carbamazepine-Tegretol 5.8 ug/mL (4.0-12.0)
[2018-03-29 12:15] LABS: Band 19 % (5-11); Eosinophils 3 % (0-10); Lymphocytes 12 % (21-51); MDiff Complete? YES; Macrocytosis SLIGHT = 6-15 cells (100X) (0-5/hpf); Monocytes 3 % (0-10); Neutrophil 63 % (42-75); Polychromasia SLIGHT = 2-3 cells (100X) (0-2/hpf)
[2018-03-29 12:26] LABS: Bilirubin Small (Negative); Blood, Urine Negative (Negative); Clarity CLEAR (Clear); Glucose, Urine (Dipstick) Negative (Negative); Leukocyte Negative (Negative); Nitrite Negative (Negative); Protein, Urine (Dipstick) Negative (Neg-Trace); Specific Gravity, Urine 1.011 (1.002-1.036); pH, Urine 5.5 (5.0-9.0)
== END 2018-03-29 13:25 | disposition home or self-care (01) ==
LOC: ERS 10:58
DX: R56.9 Unspecified convulsions (principal); D64.9 Anemia, unspecified; I10 Essential (primary) hypertension; F17.210 Nicotine dependence, cigarettes, uncomplicated; Z79.899 Other long term (current) drug therapy
CPT/HCPCS: 36415; 80053; 80156; 81003; 84146; 85025

== ENCOUNTER 2018-04-28 16:38 | Inpatient (IN) | payer MEDICARE ==
[~2018-04-28 16:38] MED LIST: ISOVUE-370 76%-LOCM 1 ML ONE
[2018-04-28 17:08] LABS: Bilirubin Small (Negative); Blood, Urine Negative (Negative); Clarity CLEAR (Clear); Glucose, Urine (Dipstick) Negative (Negative); Leukocyte Negative (Negative); Nitrite Negative (Negative); Protein, Urine (Dipstick) Negative (Neg-Trace); Specific Gravity, Urine 1.014 (1.002-1.036); Urobilinogen 0.2 mg/dL (0.2-1.0)
[2018-04-28 17:26] LABS: #Eosinphils 0.1 thou/uL (0.0-0.7); #Lymphocytes 0.5 thou/uL (1.20-3.40); #Monocytes 0.3 thou/uL (0.11-0.59); #Neutrophils 1.3 thou/uL (1.40-6.50); %Basophils 0.6 % (0.0-1.0); %Eosinophils 4.4 % (0.0-10.0); %Lymphocytes 22.2 % (21.0-51.0); %Monocytes 13.3 % (0.0-10.0); %Neutrophils 59.4 % (42.0-75.0); Hemoglobin 6.7 g/dL (12.0-16.0); Mean Corpuscular HGB CONC 33.2 g/dL (32.0-36.0); Mean Corpuscular Hemoglobin 36.1 pg (27.0-31.0); Mean Platelet Volume 6.3 fL (7.4-10.4); Platelet Count 265 thou/uL (130-400); RBC Distribution Width 17.4 % (11.5-14.5); Red Blood Cell (RBC) Count 1.85 mill/uL (4.20-5.40); White Blood Cell (WBC) Count 2.1 thou/uL (4.8-10.8)
--- NOTE | 2018-04-28 17:34 | RAD ---
UPRIGHT PORTABLE CHEST ONE VIEW: History: 67-year-old female with history of altered mental status. Comparison: 03-09-18 FINDINGS: Monitor leads overlie the chest. Heart size is within normal limits. The lungs are clear. No confluen t pneumonia, overt edema, or pleural effusion. IMPRESSION: No acute intrathoracic disease. Atherosclerosis of the aorta with ectasia. POS: [facility]
[2018-04-28 17:47] LABS: ALT (SGPT) 8 U/L (8-55); AST (SGOT) 25 U/L (5-34); Albumin 3.4 g/dL (3.4-4.8); Alkaline Phosphatase 98 U/L (40-150); Anion Gap 20 mmol/L (10-20); BUN (Urea Nitrogen) 44 mg/dL (9.8-20.1); Bilirubin, Total 0.4 mg/dL (0.2-1.2); Calc. Creatinine Clearance 0 mL/min (70-130); Calcium 8.9 mg/dL (7.8-10.44); Carbon Dioxide 22 mmol/L (23-31); Chloride 102 mmol/L (98-107); Estimated GFR-MDRD 33; Globulin 2.9 g/dL (2.4-3.5); Glucose 80 mg/dL (80-115); Potassium 4.7 mmol/L (3.5-5.1); Protein, Total 6.3 g/dL (6.0-8.3); Sodium 139 mmol/L (136-145)
[2018-04-28 17:51] LABS: CKMB 1.2 ng/mL (0-6.6); Troponin I Less than 0.010 ng/mL (< 0.028)
--- NOTE | 2018-04-28 18:54 | CT ---
CT HEAD NONCONTRAST: History: Altered mental status. Comparison: 11-25-16 FINDINGS: There is no evidence of acute intracranial hemorrhage or infarct. The slightly hyperdense mass along the left temporal inner calvarium is stable and may represent a meningioma. There is minimal associat ed mass effect. Chronic ischemic small vessel disease is again evident. Ventricles are unremarkable. Visualized paranasal sinuses remain well aerated. IMPRESSION: Chronic type findings are stable. No acute intracranial abnormalities are demonstrated. POS: [facility]
--- NOTE | 2018-04-28 19:17 | CT ---
CT ABDOMEN AND PELVIS WITH IV CONTRAST: History: Abdominal pain. Low hemoglobin. Comparison: 11-24-16 FINDINGS: Lung bases are clear. Small hyperdense stone in the dependent portion of the gallbladder lumen. At th e level of the pancreatic head, a lobular somewhat ill-defined cystic lesion is now 2.4 x 2.4 cm grea test diameters. Prominent calcification throughout the arterial structures. Degenerative changes lumbar spine. At the midthoracic spine, a densely calcified oval mass occupying most of the diameter of the central spina l canal on the superior most images correlates with a mass on the MRI from 09-29-16. IMPRESSION: 1. Probable cystic pancreatic head and mass. Primary concern is neoplasm. Please consider nonemergent MRI of the pancreas, with and without gadolinium contrast, for better characterization. 2. Cholelithiasis. 3. Atherosclerosis. 4. Densely calcified intraspinal mass mid to lower thoracic spine is partially visualized. It was bet ter demonstrated on MRI from 09-29-16. POS: [facility]
[2018-04-28] MEDS ORDERED: Bisacodyl 5 MG TAB PO PRN (20:41)
[2018-04-28] MEDS ORDERED: Acetaminophen 325 MG TAB PO PRN (20:41)
[2018-04-28] MEDS ORDERED: Ondansetron HCl/PF 4 MG/2 ML Vial IVP PRN (20:41)
[2018-04-28] MEDS ORDERED: Senokot 8.6 MG TAB PO PRN (20:41)
[2018-04-28] MEDS ORDERED: Ondansetron ODT 4 MG TAB PO PRN (20:41)
[2018-04-28 22:38] VITALS: BMI 15.7
[2018-04-28 22:41] LABS: Reticulocyte Count 5.1 % (0.5-1.5)
[2018-04-28 23:01] LABS: Iron 47 ug/dL (50-170); Iron Binding Capacity, Total 264 mcg/dL (265-497)
[2018-04-29] MEDS: Famotidine 20 MG TAB PO SCH ×2 (00:40→22:15)
[2018-04-29] MEDS: carBAMazepine 200 MG TAB PO SCH ×4 (00:40→22:15)
[2018-04-29] MEDS: Heparin 5,000 UNITS/ML VIAL SC SCH ×4 (00:41→22:16)
[2018-04-29] MEDS: Ammonium Lactate 12% Lotion 225 GM BOT TOP SCH ×3 (00:42→22:17)
[2018-04-29 05:22] LABS: #Eosinphils 0.1 thou/uL (0.0-0.7); #Lymphocytes 0.4 thou/uL (1.20-3.40); #Monocytes 0.3 thou/uL (0.11-0.59); #Neutrophils 1.6 thou/uL (1.40-6.50); %Basophils 0.4 % (0.0-1.0); %Lymphocytes 16.1 % (21.0-51.0); %Monocytes 12.5 % (0.0-10.0); Hemoglobin 9.7 g/dL (12.0-16.0); Mean Corpuscular HGB CONC 34.8 g/dL (32.0-36.0); Mean Corpuscular Hemoglobin 34.3 pg (27.0-31.0); Mean Corpuscular Volume 98.5 fL (78.0-98.0); Mean Platelet Volume 6.4 fL (7.4-10.4); Platelet Count 212 thou/uL (130-400); RBC Distribution Width 18.8 % (11.5-14.5); Red Blood Cell (RBC) Count 2.82 mill/uL (4.20-5.40); White Blood Cell (WBC) Count 2.4 thou/uL (4.8-10.8)
[2018-04-29 05:28] LABS: ALT (SGPT) 8 U/L (8-55); AST (SGOT) 18 U/L (5-34); Alkaline Phosphatase 83 U/L (40-150); Anion Gap 17 mmol/L (10-20); BUN (Urea Nitrogen) 42 mg/dL (9.8-20.1); BUN/Creatinine Ratio 25.15; Bilirubin, Total 0.5 mg/dL (0.2-1.2); Calc. Creatinine Clearance 24 mL/min (70-130); Calcium 8.4 mg/dL (7.8-10.44); Carbon Dioxide 20 mmol/L (23-31); Chloride 105 mmol/L (98-107); Estimated GFR-MDRD 37; Globulin 2.5 g/dL (2.4-3.5); Glucose 68 mg/dL (80-115); Phosphorus 4.3 mg/dL (2.3-4.7); Potassium 4.3 mmol/L (3.5-5.1); Protein, Total 5.5 g/dL (6.0-8.3); Sodium 138 mmol/L (136-145)
[2018-04-29] MEDS: Folic Acid 1 MG TAB PO SCH (08:27)
[2018-04-29] MEDS: Amlodipine 5 MG TAB PO SCH (08:27)
[2018-04-29] MEDS: Multivit, Therapeutic 1 TAB PO SCH (08:28)
--- NOTE | 2018-04-29 11:16 | HP ---
CHIEF COMPLAINT: Mental status changes. HISTORIAN: Electronic medical records and medical staff. HISTORY OF PRESENT ILLNESS: This is a 67-year-old female with past medical history of anemia, hypert ension, seizure, presenting with alteration of awareness. The family reports that patient fell 2 day s ago. The patient has been weak. The patient has not been mobile due to weakness. The patient per baseline is stated the patient is able to do some of her activities of daily living, but upon furthe r questioning, the patient does not appear to be alert, oriented x3. The patient is at best alert an d oriented x1. On reviewing the patient's chart, it was found that the patient had a thoracic spine MRI in the past which showed incomplete assess mass of vertebral canal. In 2015 an echo was done [facility] showed ejection fraction 55-60%. In 2016 another echo that was done showed the patient's ejection fraction has decreased to 25-30%. In 2012, a brain scan showed a meningioma which was 1 x 1.7 x 1.5. In 03/09/2017, the patient was in the hospital and at that point, the patient was diagnosed with shailesh ne marrow suppression due to alcohol. REVIEW OF SYSTEMS: Unable to be obtained as the patient is not really accurate and the patient is no t able to give us good information. PAST MEDICAL HISTORY: Refer to HPI. PAST SURGICAL HISTORY: Left hip replacement status post MCV. PSYCHIATRIC HISTORY: No previous psychiatric history. SOCIAL HISTORY: The patient drinks every day. The patient states that her last drink was yesterday. The patient drinks about 5 drinks per day. The patient denies illicit drug use. The patient uses tobacco daily. ALLERGIES: ____. CURRENT MEDICATIONS: 1. Lisinopril/hydrochlorothiazide 20/12.5 mg. 2. Spironolactone 25 mg. 3. Carbamazepine 5 mg. 4. Folic acid 1 mg. PHYSICAL EXAMINATION: VITAL SIGNS: Blood pressure 131/74, pulse 83, respiratory rate of 18, temperature of 98.3, O2 sat is 99 on room air. GENERAL: The patient is lying in bed, alert, and oriented to self. The patient appears very cachect ic. HEENT: There is no sclerae icterus noted. Normocephalic, atraumatic. NECK: Supple. No JVDs, no trachea deviation. LUNGS: Clear to auscultation bilaterally. No wheezing, no rales, no rhonchi. CARDIOVASCULAR: Positive S1, S2, regular rhythm, no murmurs. ABDOMEN: Positive bowel sounds. No distention. Mild pain with deep palpation. EXTREMITIES: Upper extremities; the patient has weakness at the upper extremities and lower extremit ies, but does have good palpable pulses. NEUROLOGIC: Cranial nerves II-XII grossly intact. SKIN: Warm, dry and intact. The patient does have some rash around her neck and some parts of her h ands. LABORATORY DATA: WBC 2.1, hemoglobin 6.7, hematocrit is 20.1, platelet 255. Chemistry: Sodium 139, potassium 4.7, chloride 102, carbon dioxide 22, anion gap is 20, BUN is 44, creatinine is 1.87, GFR 33, glucose is 80, calcium is 8.9, total bilirubin 0.4, AST 25, ALT is 8, alkaline phosphatase 98. C EA is 5.57. ASSESSMENT AND PLAN: 1. This is a 67-year-old female being admitted for anemia most likely due to anemia of chronic infla mmation. At this point, the patient is receiving 2 units of blood since the patient's hemoglobin was less than 7, we will continue this blood. We will hold off any normal saline since the patient's ej ection fraction previously was 25%. 2. CT of the abdomen and pelvis showed probable cystic pancreatic head mass, primary concern is neop lasm. There is also cholelithiasis and atherosclerosis. At this point, we have consulted heme/oncol ogist and we have consulted palliative care for goals of care. We will continue to manage the patien t. 3. History of hyperlipidemia, hypertension. We will continue the current medications.
--- NOTE | 2018-04-29 12:05 | PDOC.PN ---
- Subjective Encounter Start Date: 04/29/18 Encounter Start Time: 08:20 -: old records requested/rev Patient seen and examined. No new complaints. No overnight events - Objective Resuscitation Status: Resuscitation Status FULL:Full Resuscitation MAR Reviewed: Yes Vital Signs & Weight: Vital Signs (12 hours) Temp Pulse Pulse Resp BP BP BP 04/29/18 08:27 74 157/88 H 04/29/18 08:10 98.2 F 74 16 157/88 H 04/29/18 08:00 98.2 F 74 16 04/29/18 03:05 97.8 F 87 18 137/78 04/29/18 00:50 97.8 F 84 18 136/77 04/29/18 00:25 97.9 F 88 18 126/72 Pulse Ox 04/29/18 08:27 04/29/18 08:10 100 04/29/18 08:00 100 04/29/18 03:05 100 04/29/18 00:50 97 04/29/18 00:25 96 Weight Weight 100 lb 8.493 oz I&O: 04/28/18 04/29/18 04/30/18 06:59 06:59 06:59 Intake Total 860 Balance 860 Result Diagrams: 04/29/18 04:50 04/29/18 04:50 Radiology Reviewed by me: Yes Phys Exam - Physical Examination Constitutional: NAD cachectic HEENT: PERRLA, moist MMs, sclera anicteric Neck: no JVD, supple Respiratory: no wheezing, no rales, no rhonchi Cardiovascular: RRR, no significant murmur, no rub Gastrointestinal: soft, non-tender, no distention Musculoskeletal: no edema, pulses present Neurological: non-focal, normal sensation, moves all 4 limbs Psychiatric: normal affect, A&O x 3 Skin: no rash, normal turgor Dx/Plan (1) Pancreatic mass Status: Acute (2) Alcohol abuse Code(s): F10.10 - ALCOHOL ABUSE, UNCOMPLICATED Status: Chronic Comment: (3) CKD (chronic kidney disease) stage 3, GFR 30-59 ml/min Code(s): N18.3 - CHRONIC KIDNEY DISEASE, STAGE 3 (MODERATE) Status: Chronic (4) H/O malignant neoplasm of breast Code(s): Z85.3 - PERSONAL HISTORY OF MALIGNANT NEOPLASM OF BREAST Status: Chronic (5) Hypertension Code(s): I10 - ESSENTIAL (PRIMARY) HYPERTENSION Status: Chronic Qualifiers: Comment: (6) Hypothyroidism Code(s): E03.9 - HYPOTHYROIDISM, UNSPECIFIED Status: Chronic Qualifiers: (7) Macrocytic anemia Code(s): D53.9 - NUTRITIONAL ANEMIA, UNSPECIFIED Status: Chronic Comment: (8) Protein-calorie malnutrition, moderate Code(s): E44.0 - MODERATE PROTEIN-CALORIE MALNUTRITION Status: Chronic Comment: (9) Seizure disorder Code(s): G40.909 - EPILEPSY, UNSP, NOT INTRACTABLE, WITHOUT STATUS EPILEPTICUS Status: Chronic Comment: (10) Tobacco abuse Code(s): Z72.0 - TOBACCO USE Status: Chronic (11) Vitamin D deficiency Code(s): E55.9 - VITAMIN D DEFICIENCY, UNSPECIFIED Status: Chronic - Plan cont current plan of care * consult GI for pancreatic mass * check CA 19-9 * will need EUS * oncology consulted * medication reviewed as below * symptomatic treatment. Review of Systems - Review of Systems Constitutional: weakness. negative: fever, chills, sweats, malaise, other ENT: negative: Ear Pain, Ear Discharge, Nose Pain, Nose Discharge, Nose Congestion, Mouth Pain, Mouth Swelling, Throat Pain, Throat Swelling, Other Respiratory: negative: Cough, Dry, Shortness of Breath, Hemoptysis, SOB with Excertion, Pleuritic Pain, Sputum, Wheezing Cardiovascular: negative: chest pain, palpitations, orthopnea, paroxysmal nocturnal dyspnea, edema, light headedness, other Gastrointestinal: negative: Nausea, Vomiting, Abdominal Pain, Diarrhea, Constipation, Melena, Hematochezia, Other Genitourinary: negative: Dysuria, Frequency, Incontinence, Hematuria, Retention , Other Musculoskeletal: negative: Neck Pain, Shoulder Pain, Arm Pain, Back Pain, Hand Pain, Leg Pain, Foot Pain, Other Skin: negative: Rash, Lesions, Ace, Bruising, Other - Medications/Allergies Allergies/Adverse Reactions: Allergies Allergy/AdvReac Type Severity Reaction Status Date / Time Gadolinium-Containing AdvReac Mild Emesis Verified 04/28/18 22:32 Contrast Medi Medications: Current Medications Acetaminophen (Tylenol) 650 mg PO Q4H PRN PRN Reason: Headache/Fever or Pain Amlodipine Besylate (Norvasc) 5 mg PO DAILY [facility] Last Admin: 04/29/18 08:27 Dose: 5 mg Ammonium Lactate (Laclotion) 0 gm TOP BID [facility] Last Admin: 04/29/18 08:29 Dose: 1 gm Bisacodyl (Dulcolax) 10 mg PO DAILYPRN PRN PRN Reason: Constipation Carbamazepine (Tegretol) 200 mg PO TID [facility] Last Admin: 04/29/18 08:27 Dose: 200 mg Famotidine (Pepcid) 20 mg PO QPM [facility] Last Admin: 04/29/18 00:40 Dose: 20 mg Folic Acid (Folvite) 1 mg PO DAILY [facility] Last Admin: 04/29/18 08:27 Dose: 1 mg Heparin Sodium (Porcine) (Heparin) 5,000 units SC TID [facility] Last Admin: 04/29/18 08:28 Dose: 5,000 units Lactulose (Lactulose) 20 gm PO DAILYPRN PRN PRN Reason: Constipation Multivitamins (Theragran) 1 tab PO DAILY [facility] Last Admin: 04/29/18 08:28 Dose: 1 tab Ondansetron HCl (Zofran Odt) 4 mg PO Q6H PRN PRN Reason: Nausea/Vomiting Ondansetron HCl (Zofran) 4 mg IVP Q6H PRN PRN Reason: Nausea/Vomiting Senna (Senokot) 2 tab PO HSPRN PRN PRN Reason: Constipation Sodium Chloride (Flush - Normal Saline) 10 ml IVF Q12HR [facility] Last Admin: 04/29/18 08:29 Dose: 10 ml Sodium Chloride (Flush - Normal Saline) 10 ml IVF PRN PRN PRN Reason: Saline Flush Thiamine HCl (Thiamine) 100 mg PO DAILY [facility] Last Admin: 04/29/18 08:28 Dose: 100 mg
--- NOTE | 2018-04-29 21:02 | CON ---
DATE OF CONSULTATION: 04/29/2018 REASON FOR CONSULTATION: Pancreatic mass. HISTORY OF PRESENT ILLNESS: A 67-year-old -[place] female presenting with pancreatic mass. The patient was brought into the ER by her family due to altered mental status and history of falls 2 days prior due to weakness. The patient has been unable to perform some activities of daily living due to weakness. Patient is a very poor historian. Patient states she has lost weight in the last few months, but is unable to quantitate how much weight. She denies fevers, night sweats, nausea, vomiting, diarrhea or loss of appetite. She states she was told a couple months ago that she had a pancreatic mass at another hospital and says nothing was done about it. The patient had a CT of the chest, abdomen, and pelvis on 03/09/2018 that showed a subtle hypodense mass lesion in the region of the pancreatic head. She had a CT of the abdomen and pelvis again on 04/28/2018 that showed a lot showed a lobular somewhat ill-defined cystic lesion 2.4 x 2.4 cm in the pancreatic head. The patient also had an MRI in 09/2016 that showed a densely calcified intraspinal mass in the mid to lower thoracic spine, which is again visualized on CT scan from 04/28/2018. The patient denies any knowledge of this and says nothing has ever been done about it. She denies pain along her spine and in her back. She also does diet. Denies any abdominal pain. Patient states she is a former smoker of 1 pack per day and former drinker of a fifth of liquor every other day for a number of years. She states she has not drink as much now. 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 REVIEW OF SYSTEMS: Unable to obtain due to patient's altered mental status. PAST MEDICAL HISTORY: Anemia, hypertension, seizure, alcohol abuse, and tobacco abuse. PAST SURGICAL HISTORY: Left hip replacement. PSYCHIATRIC HISTORY: None. SOCIAL HISTORY: Chronic alcohol abuse. Tobacco abuse. Denies illicit drugs. ALLERGIES: GADOLINIUM. PHYSICAL EXAMINATION: VITAL SIGNS: Temperature 98.2, pulse 74, blood pressure 157/88, respirations 16 , and O2 saturation 100% on room air. GENERAL: Cachectic appearing, but in no acute distress. HEENT: No oral lesions. Moist mucous membranes. CARDIOVASCULAR: S1, S2 regular rhythm and rate. RESPIRATIONS: Clear to auscultation bilaterally. ABDOMEN: Soft, nondistended, and nontender. No palpable organomegaly. EXTREMITIES: No peripheral edema. LYMPHATICS: No palpable lymphadenopathy. NEUROLOGIC: Cranial nerves II-XII grossly intact. PSYCHIATRIC: Oriented to person and place, not to time, patient slow to answer questions with limited concentration. LABORATORY DATA: White blood cells 2.4, neutrophils 67%. Hemoglobin 9.7, hematocrit 27.8, platelets 212. Retic count 5.1, BUN 42, creatinine 1.67, CEA 5.57. Vitamin B12 is 553, folate 8.0, albumin 3.0, total bilirubin 0.5, AST 18 , ALT 8. IMAGING: CT abdomen and pelvis dated 04/28/2018 shows 2.4 x 2.4 cm pancreatic head mass, ill-defined cystic lesion. Also noted a densely calcified oval mass occupying most of the diameter of the central spinal canal on the superior most images correlates with a mass on the MRI from 09/29/2016. ASSESSMENT AND PLAN: A 67-year-old -[place] female with chronic alcohol abuse and new pancreatic head mass concerning for malignancy. This is suspicious for primary pancreatic adenocarcinoma, especially given chronic alcohol abuse. EUS already ordered for diagnostic biopsy of the mass. We will follow up final pathology after biopsy and would recommend CT chest to complete staging. Patient is very cachectic with weight loss, and would benefit from a nutritional consult and Palliative Care consult. Thank you for this consult. Will follow. EDUARDA
--- NOTE | 2018-04-29 22:23 | CON ---
DATE OF CONSULTATION: 04/29/2018 GI INPATIENT CONSULTATION NOTE REQUESTING PHYSICIAN: Shelbie Oviedo M.D. REASON FOR CONSULTATION: Pancreatic mass. HISTORY OF PRESENT ILLNESS: Dena Oconnell is a 67-year-old -Omani woman previously seen by my GI colleague, Dr. Jamshid Matias. She has a history significant for prior breast cancer as well as ch ronic kidney disease, protein calorie malnutrition and macrocytic anemia. She also has a long-term a lcohol abuse or history is obtained primarily from the chart because the patient is really not very t alkative. She actually cannot answer questions appropriately, pressed very hard, but most questions she just prefers to ignore. At any rate, she was admitted to the hospital last night with reports of altered mental status. She had a recent fall and has had some generalized decline evidently over past few months. She is not complaining of any abdominal pain, nausea, or vomiting, it looks like she has finished half of her dinner tonight, but on admission, a CT of the abdomen and pelvis was per formed and this demonstrated a 2.4 x 2.4 cystic mass in the head of the pancreas. There was no menti on of any biliary dilation. There is a single gallstone in the gallbladder. There is also an oval m ass in the thoracic spine, which was actually better visualized on an MRI earlier this year. Looking back, it appears she had a prior CT of the abdomen in February of this year and it also showed a pancrea tic head mass, which is characterized as very subtle at that time. There was no evidence of pancreat ic ductal dilation. I note that a prior CT abdomen from 11/2016 did not demonstrate any such finding . Again, the patient is not having any abdominal pain at this time. She has been tolerating her reg ular diet and has been hemodynamically stable. CEA was mildly elevated to 5.57 and CA 19-9 is pendin g. Also notes she received 2 units RBC transfusion for admission hemoglobin 6.7. This was a macrocy tic anemia with MCV 109. She had an EGD and colonoscopy in 2016, which were negative for any source of bleeding and her anemia has been characterized as anemia of nutritional deficiency and also I susp ect bone marrow suppression from chronic alcohol abuse. REVIEW OF SYSTEMS: Really unable to obtain from the patient as she ignores most direct questioning a nd answers only certain questions. ALLERGIES: GADOLINIUM CONTRAST. OUTPATIENT MEDICATIONS: Lisinopril/hydrochlorothiazide, spironolactone, Tegretol, folic acid. FAMILY HISTORY: Noncontributory. SOCIAL HISTORY: The patient evidently has 10 shots of liquor per day. She is also a smoker. PAST MEDICAL HISTORY: Chronic alcohol abuse, anemia from bone marrow suppression due to alcohol abus e, chronic kidney disease stage 3, breast cancer, hypertension, hypothyroidism, seizure disorder, tob acco abuse, left hip replacement, congestive heart failure with ejection fraction 25%-30% based on ec hocardiogram in 2017. PHYSICAL EXAMINATION: VITAL SIGNS: Temperature 98.2, pulse 74, blood pressure 157/88, 100% oxygen saturation on room air. GENERAL: Cachectic, but nontoxic appearing 67-year-old -O[place]i woman sitting in bed comfort ably in no distress. MENTAL: She is alert. She is oriented to person and place. She ignores most direct questions, but does seem able to understand what I am saying based on the answer she does provide. She is in no dis tress. SKIN: No jaundice, no rashes were palpable. EYES: No scleral icterus. Extraocular movements intact. ENT: Mucous membranes moist, no oral lesions. LYMPH: No submandibular, supraclavicular lymphadenopathy. THYROID: Nontender to palpation. HEART: Regular rate and rhythm. LUNGS: Clear to auscultation bilaterally. ABDOMEN: Flat, bowel sounds present, soft and nontender to deep palpation throughout. No masses or organomegaly appreciated. EXTREMITIES: No peripheral edema. VESSELS: Radial pulses 2+ bilaterally. NEUROLOGICAL: Cranial nerves II-XII intact bilaterally. No focal deficits. LABORATORY STUDIES: Initial hemoglobin was 6.7 with MCV 109. After 2 units RBC transfusion, hemoglo bin is up to 9.7, WBC 2.4, platelets 212. BUN 42, creatinine 1.67. CEA is 5.57. CA 19-9 is pending . FOBT is negative. Ferritin is 50.8. LFTs are all normal with total bilirubin 0.5, alkaline phosp hatase 83, AST 18, ALT 8, albumin 3.0. Vitamin B12 is 553. Folic acid is 8.0. IMAGING STUDIES: CT of the abdomen and pelvis demonstrates a 2.4 x 2.4 cm cystic mass in the head of the pancreas concerning for possible malignancy. There is a single gallstone in the gallbladder. T here is also an oval mass in the thoracic spine. Head CT shows what appears to be a small meningioma , no acute processes. Chest x-ray shows no acute processes. ASSESSMENT AND PLAN: 1. Pancreatic mass, cystic, in the head of the pancreas. 2. Chronic alcohol abuse. 3. Anemia, due to malnutrition and bone marrow suppression from chronic alcohol abuse. Looking back, it appears that this pancreatic mass is demonstrated on CT a few months ago. There was no mention on the CT in 11/2016. Given normal LFTs and no acute abdominal symptoms, does not appear this is associated with any biliary or pancreatic ductal obstruction. Considerations would include primary neoplasm, mucinous cystic neoplasm, or possibly just a sequelae from prior episodes of acute pancreatitis. I agree that further characterization is desirable. We are awaiting CA 19-9 level. T he best modality would be upper endoscopic ultrasound. We do not have this available at our facility . We can try to help arrange this for her on an outpatient basis. We will at least try to have her follow up as an outpatient with Dr. Jamshid Matias, who has seen her before. No acute interventions or f urther diagnostics planned from a GI standpoint this admission, unless her clinical situation changes . Thank you for the consultation. Please call any time with questions or concerns.
[2018-04-30] MEDS: Amlodipine 5 MG TAB PO SCH (10:15)
[2018-04-30] MEDS: Multivit, Therapeutic 1 TAB PO SCH (10:15)
[2018-04-30] MEDS: Ammonium Lactate 12% Lotion 225 GM BOT TOP SCH ×2 (10:15→21:25)
[2018-04-30] MEDS: Folic Acid 1 MG TAB PO SCH (10:15)
[2018-04-30] MEDS: carBAMazepine 200 MG TAB PO SCH ×3 (10:15→21:26)
[2018-04-30] MEDS: Heparin 5,000 UNITS/ML VIAL SC SCH ×3 (10:26→21:26)
--- NOTE | 2018-04-30 12:35 | PDOC.PN ---
- Subjective Encounter Start Date: 04/30/18 Encounter Start Time: 08:30 Patient seen and examined. No new complaints. No overnight events - Objective Resuscitation Status: Resuscitation Status FULL:Full Resuscitation MAR Reviewed: Yes Vital Signs & Weight: Vital Signs (12 hours) Temp Pulse Resp BP BP Pulse Ox 04/30/18 10:15 76 144/76 H 04/30/18 08:00 98.3 F 76 16 136/78 96 04/30/18 04:00 98.0 F 76 20 155/91 H 96 Weight Admit Weight 100 lb 8.493 oz Weight 100 lb 8.493 oz I&O: 04/29/18 04/30/18 05/01/18 06:59 06:59 06:59 Intake Total 860 730 Balance 860 730 Result Diagrams: 04/29/18 04:50 04/29/18 04:50 Phys Exam - Physical Examination Constitutional: NAD cachectic HEENT: PERRLA, moist MMs, sclera anicteric Neck: no JVD, supple Respiratory: no wheezing, no rales, no rhonchi Cardiovascular: RRR, no significant murmur, no rub Gastrointestinal: soft, non-tender, no distention, positive bowel sounds Musculoskeletal: no edema, pulses present Neurological: non-focal, normal sensation Lymphatic: no nodes Psychiatric: normal affect Skin: no rash, normal turgor Dx/Plan (1) Pancreatic mass Status: Acute (2) Alcohol abuse Code(s): F10.10 - ALCOHOL ABUSE, UNCOMPLICATED Status: Chronic Comment: (3) CKD (chronic kidney disease) stage 3, GFR 30-59 ml/min Code(s): N18.3 - CHRONIC KIDNEY DISEASE, STAGE 3 (MODERATE) Status: Chronic (4) H/O malignant neoplasm of breast Code(s): Z85.3 - PERSONAL HISTORY OF MALIGNANT NEOPLASM OF BREAST Status: Chronic (5) Hypertension Code(s): I10 - ESSENTIAL (PRIMARY) HYPERTENSION Status: Chronic Qualifiers: Comment: (6) Hypothyroidism Code(s): E03.9 - HYPOTHYROIDISM, UNSPECIFIED Status: Chronic Qualifiers: (7) Macrocytic anemia Code(s): D53.9 - NUTRITIONAL ANEMIA, UNSPECIFIED Status: Chronic Comment: (8) Protein-calorie malnutrition, moderate Code(s): E44.0 - MODERATE PROTEIN-CALORIE MALNUTRITION Status: Chronic Comment: (9) Seizure disorder Code(s): G40.909 - EPILEPSY, UNSP, NOT INTRACTABLE, WITHOUT STATUS EPILEPTICUS Status: Chronic Comment: (10) Tobacco abuse Code(s): Z72.0 - TOBACCO USE Status: Chronic (11) Vitamin D deficiency Code(s): E55.9 - VITAMIN D DEFICIENCY, UNSPECIFIED Status: Chronic - Plan cont current plan of care * pt is continue to be very high risk for readmission her ongoing noncompliance and ongoing alcohol and tobacco abuse * medication reviewed as below * symptomatic treatment * continue supportive care. * consult palliative care * GI and onco recommendation noted Review of Systems - Review of Systems Constitutional: weakness. negative: fever, chills, sweats, malaise, other Eyes: negative: Pain, Vision Change, Conjunctivae Inflammation, Eyelid Inflammation, Redness, Other ENT: negative: Ear Pain, Ear Discharge, Nose Pain, Nose Discharge, Nose Congestion, Mouth Pain, Mouth Swelling, Throat Pain, Throat Swelling, Other Respiratory: negative: Cough, Dry, Shortness of Breath, Hemoptysis, SOB with Excertion, Pleuritic Pain, Sputum, Wheezing Cardiovascular: negative: chest pain, palpitations, orthopnea, paroxysmal nocturnal dyspnea, edema, light headedness, other Gastrointestinal: negative: Nausea, Vomiting, Abdominal Pain, Diarrhea, Constipation, Melena, Hematochezia, Other Genitourinary: negative: Dysuria, Frequency, Incontinence, Hematuria, Retention , Other Musculoskeletal: negative: Neck Pain, Shoulder Pain, Arm Pain, Back Pain, Hand Pain, Leg Pain, Foot Pain, Other Skin: negative: Rash, Lesions, Ace, Bruising, Other - Medications/Allergies Allergies/Adverse Reactions: Allergies Allergy/AdvReac Type Severity Reaction Status Date / Time Gadolinium-Containing AdvReac Mild Emesis Verified 04/28/18 22:32 Contrast Medi Medications: Current Medications Acetaminophen (Tylenol) 650 mg PO Q4H PRN PRN Reason: Headache/Fever or Pain Amlodipine Besylate (Norvasc) 5 mg PO DAILY [facility] Last Admin: 04/30/18 10:15 Dose: 5 mg Ammonium Lactate (Laclotion) 0 gm TOP BID [facility] Last Admin: 04/30/18 10:15 Dose: 225 gm Bisacodyl (Dulcolax) 10 mg PO DAILYPRN PRN PRN Reason: Constipation Carbamazepine (Tegretol) 200 mg PO TID [facility] Last Admin: 04/30/18 10:15 Dose: 200 mg Famotidine (Pepcid) 20 mg PO QPM [facility] Last Admin: 04/29/18 22:15 Dose: 20 mg Folic Acid (Folvite) 1 mg PO DAILY [facility] Last Admin: 04/30/18 10:15 Dose: 1 mg Heparin Sodium (Porcine) (Heparin) 5,000 units SC TID [facility] Last Admin: 04/30/18 10:26 Dose: Not Given Lactulose (Lactulose) 20 gm PO DAILYPRN PRN PRN Reason: Constipation Multivitamins (Theragran) 1 tab PO DAILY [facility] Last Admin: 04/30/18 10:15 Dose: 1 tab Ondansetron HCl (Zofran Odt) 4 mg PO Q6H PRN PRN Reason: Nausea/Vomiting Ondansetron HCl (Zofran) 4 mg IVP Q6H PRN PRN Reason: Nausea/Vomiting Senna (Senokot) 2 tab PO HSPRN PRN PRN Reason: Constipation Sodium Chloride (Flush - Normal Saline) 10 ml IVF Q12HR [facility] Last Admin: 04/30/18 10:27 Dose: Not Given Sodium Chloride (Flush - Normal Saline) 10 ml IVF PRN PRN PRN Reason: Saline Flush Thiamine HCl (Thiamine) 100 mg PO DAILY [facility] Last Admin: 04/30/18 10:15 Dose: 100 mg
[2018-04-30] MEDS: Ferrous Sulfate 325 MG TAB PO SCH (17:05)
[2018-04-30] MEDS: Famotidine 20 MG TAB PO SCH (21:25)
[2018-05-01] MEDS: Heparin 5,000 UNITS/ML VIAL SC SCH ×3 (09:17→20:51)
[2018-05-01] MEDS: Amlodipine 5 MG TAB PO SCH (09:17)
[2018-05-01] MEDS: Folic Acid 1 MG TAB PO SCH (09:18)
[2018-05-01] MEDS: Multivit, Therapeutic 1 TAB PO SCH (09:18)
[2018-05-01] MEDS: Ferrous Sulfate 325 MG TAB PO SCH ×2 (09:18→16:13)
[2018-05-01] MEDS: carBAMazepine 200 MG TAB PO SCH ×3 (09:18→20:51)
[2018-05-01] MEDS: Ammonium Lactate 12% Lotion 225 GM BOT TOP SCH ×2 (10:04→20:51)
--- NOTE | 2018-05-01 11:37 | PDOC.PN ---
- Subjective Encounter Start Date: 05/01/18 Encounter Start Time: 08:10 Patient seen and examined. No new complaints. No overnight events pt is very weak, - Objective Resuscitation Status: Resuscitation Status FULL:Full Resuscitation MAR Reviewed: Yes Vital Signs & Weight: Vital Signs (12 hours) Temp Pulse Resp BP Pulse Ox 05/01/18 09:17 74 05/01/18 08:26 98.3 F 74 16 136/83 100 05/01/18 08:00 98.3 F 74 16 100 Weight Admit Weight 100 lb 8.493 oz Weight 100 lb 8.493 oz I&O: 04/30/18 05/01/18 05/02/18 06:59 06:59 06:59 Intake Total 730 800 Balance 730 800 Result Diagrams: 04/29/18 04:50 04/29/18 04:50 Phys Exam - Physical Examination Constitutional: NAD cachectic HEENT: PERRLA, moist MMs, sclera anicteric Neck: no JVD, supple Respiratory: no wheezing, no rales, no rhonchi Cardiovascular: RRR, no significant murmur, no rub Gastrointestinal: soft, non-tender, no distention, positive bowel sounds Musculoskeletal: no edema, pulses present Neurological: non-focal, moves all 4 limbs Lymphatic: no nodes Psychiatric: normal affect Skin: no rash, normal turgor Dx/Plan (1) Pancreatic mass Status: Acute (2) Alcohol abuse Code(s): F10.10 - ALCOHOL ABUSE, UNCOMPLICATED Status: Chronic Comment: (3) CKD (chronic kidney disease) stage 3, GFR 30-59 ml/min Code(s): N18.3 - CHRONIC KIDNEY DISEASE, STAGE 3 (MODERATE) Status: Chronic (4) H/O malignant neoplasm of breast Code(s): Z85.3 - PERSONAL HISTORY OF MALIGNANT NEOPLASM OF BREAST Status: Chronic (5) Hypertension Code(s): I10 - ESSENTIAL (PRIMARY) HYPERTENSION Status: Chronic Qualifiers: Comment: (6) Hypothyroidism Code(s): E03.9 - HYPOTHYROIDISM, UNSPECIFIED Status: Chronic Qualifiers: (7) Macrocytic anemia Code(s): D53.9 - NUTRITIONAL ANEMIA, UNSPECIFIED Status: Chronic Comment: (8) Protein-calorie malnutrition, moderate Code(s): E44.0 - MODERATE PROTEIN-CALORIE MALNUTRITION Status: Chronic Comment: (9) Seizure disorder Code(s): G40.909 - EPILEPSY, UNSP, NOT INTRACTABLE, WITHOUT STATUS EPILEPTICUS Status: Chronic Comment: (10) Tobacco abuse Code(s): Z72.0 - TOBACCO USE Status: Chronic (11) Vitamin D deficiency Code(s): E55.9 - VITAMIN D DEFICIENCY, UNSPECIFIED Status: Chronic - Plan cont current plan of care, PT/OT, social services assistant * pt is very weak to go to home and suspect her readmission soon given her noncompliance * she will benefit from NH placement * classification case manager is working on that * medication reviewed as below * symptomatic treatment. Review of Systems - Review of Systems Constitutional: weakness. negative: fever, chills, sweats, malaise, other ENT: negative: Ear Pain, Ear Discharge, Nose Pain, Nose Discharge, Nose Congestion, Mouth Pain, Mouth Swelling, Throat Pain, Throat Swelling, Other Respiratory: negative: Cough, Dry, Shortness of Breath, Hemoptysis, SOB with Excertion, Pleuritic Pain, Sputum, Wheezing Cardiovascular: negative: chest pain, palpitations, orthopnea, paroxysmal nocturnal dyspnea, edema, light headedness, other Gastrointestinal: negative: Nausea, Vomiting, Abdominal Pain, Diarrhea, Constipation, Melena, Hematochezia, Other Genitourinary: negative: Dysuria, Frequency, Incontinence, Hematuria, Retention , Other Musculoskeletal: negative: Neck Pain, Shoulder Pain, Arm Pain, Back Pain, Hand Pain, Leg Pain, Foot Pain, Other - Medications/Allergies Allergies/Adverse Reactions: Allergies Allergy/AdvReac Type Severity Reaction Status Date / Time Gadolinium-Containing AdvReac Mild Emesis Verified 04/28/18 22:32 Contrast Medi Medications: Current Medications Acetaminophen (Tylenol) 650 mg PO Q4H PRN PRN Reason: Headache/Fever or Pain Amlodipine Besylate (Norvasc) 5 mg PO DAILY [facility] Last Admin: 05/01/18 09:17 Dose: 5 mg Ammonium Lactate (Laclotion) 0 gm TOP BID [facility] Last Admin: 05/01/18 10:04 Dose: 225 gm Bisacodyl (Dulcolax) 10 mg PO DAILYPRN PRN PRN Reason: Constipation Carbamazepine (Tegretol) 200 mg PO TID [facility] Last Admin: 05/01/18 09:18 Dose: 200 mg Famotidine (Pepcid) 20 mg PO QPM [facility] Last Admin: 04/30/18 21:25 Dose: 20 mg Ferrous Sulfate (Feosol) 325 mg PO BID-WM [facility] Last Admin: 05/01/18 09:18 Dose: 325 mg Folic Acid (Folvite) 1 mg PO DAILY [facility] Last Admin: 05/01/18 09:18 Dose: 1 mg Heparin Sodium (Porcine) (Heparin) 5,000 units SC TID [facility] Last Admin: 05/01/18 09:17 Dose: 5,000 units Lactulose (Lactulose) 20 gm PO DAILYPRN PRN PRN Reason: Constipation Multivitamins (Theragran) 1 tab PO DAILY [facility] Last Admin: 05/01/18 09:18 Dose: 1 tab Ondansetron HCl (Zofran Odt) 4 mg PO Q6H PRN PRN Reason: Nausea/Vomiting Ondansetron HCl (Zofran) 4 mg IVP Q6H PRN PRN Reason: Nausea/Vomiting Senna (Senokot) 2 tab PO HSPRN PRN PRN Reason: Constipation Sodium Chloride (Flush - Normal Saline) 10 ml IVF Q12HR [facility] Last Admin: 05/01/18 09:18 Dose: Not Given Sodium Chloride (Flush - Normal Saline) 10 ml IVF PRN PRN PRN Reason: Saline Flush Thiamine HCl (Thiamine) 100 mg PO DAILY [facility] Last Admin: 05/01/18 09:17 Dose: 100 mg
--- NOTE | 2018-05-01 19:13 | PRG ---
DATE OF SERVICE: 05/01/2018 SUBJECTIVE: The patient was seen eating her dinner tonabdoul. She reports doing "much better" than ye . She denies any nausea or vomiting. She denies having any abdominal pain. PHYSICAL EXAMINATION: VITAL SIGNS: Temperature is 98.3, blood pressure 136/83, pulse of 74. GENERAL: She is alert, thin, near cachectic woman. HEENT: Shows anicteric sclerae. Oropharynx clear. NECK: Supple. CARDIOVASCULAR: Normal S1, S2. Regular rate and rhythm. CHEST: Normal breath sounds. ABDOMEN: Soft, flat, nontender, no distention. She has good bowel sounds. EXTREMITIES: Shows no edema. LABORATORY DATA: No new labs today. Her CA19-9 was 14. ASSESSMENT: 1. Pancreatic head cystic neoplasm, benign versus malignant. This cystic lesion was not evident on prior ultrasound in 2016 and 2017. Her CA19-9 level is normal. 2. Anemia of chronic disease. 3. Malnutrition from protein deficiency. 4. History of alcohol abuse. 5. Chronic kidney disease. 6. Hypertension. RECOMMENDATIONS: 1. We will refer for endoscopic ultrasound to further define the pancreatic cystic lesion after disc harge as this modality is not available here. 2. Otherwise, stable from GI standpoint. No other recommendation.
[2018-05-01] MEDS: Famotidine 20 MG TAB PO SCH (20:51)
[2018-05-02] MEDS: Heparin 5,000 UNITS/ML VIAL SC SCH ×3 (09:07→20:16)
[2018-05-02] MEDS: Amlodipine 5 MG TAB PO SCH (09:07)
[2018-05-02] MEDS: Multivit, Therapeutic 1 TAB PO SCH (09:08)
[2018-05-02] MEDS: Folic Acid 1 MG TAB PO SCH (09:08)
[2018-05-02] MEDS: Ferrous Sulfate 325 MG TAB PO SCH ×2 (09:08→16:35)
[2018-05-02] MEDS: carBAMazepine 200 MG TAB PO SCH ×3 (09:08→20:15)
[2018-05-02] MEDS: Ammonium Lactate 12% Lotion 225 GM BOT TOP SCH ×2 (09:09→20:15)
--- NOTE | 2018-05-02 10:17 | PDOC.PN ---
- Subjective Encounter Start Date: 05/02/18 Encounter Start Time: 08:50 Patient seen and examined. No new complaints. No overnight events - Objective Resuscitation Status: Resuscitation Status FULL:Full Resuscitation MAR Reviewed: Yes Vital Signs & Weight: Vital Signs (12 hours) Temp Pulse Resp BP BP Pulse Ox 05/02/18 09:07 77 143/82 H 05/02/18 08:00 97.7 F 77 16 143/82 H 99 Weight Admit Weight 100 lb 8.493 oz Weight 100 lb 8.493 oz I&O: 05/01/18 05/02/18 05/03/18 06:59 06:59 06:59 Intake Total 800 1300 Balance 800 1300 Result Diagrams: 04/29/18 04:50 04/29/18 04:50 Phys Exam - Physical Examination Constitutional: NAD cachectic HEENT: PERRLA, moist MMs, sclera anicteric Neck: no JVD, supple Respiratory: no wheezing, no rales, no rhonchi Cardiovascular: RRR, no significant murmur, no rub Gastrointestinal: soft, non-tender, no distention, positive bowel sounds Musculoskeletal: no edema, pulses present Neurological: non-focal, normal sensation Psychiatric: normal affect, A&O x 3 Skin: no rash, normal turgor Dx/Plan (1) Pancreatic mass Status: Acute (2) Alcohol abuse Code(s): F10.10 - ALCOHOL ABUSE, UNCOMPLICATED Status: Chronic Comment: (3) CKD (chronic kidney disease) stage 3, GFR 30-59 ml/min Code(s): N18.3 - CHRONIC KIDNEY DISEASE, STAGE 3 (MODERATE) Status: Chronic (4) H/O malignant neoplasm of breast Code(s): Z85.3 - PERSONAL HISTORY OF MALIGNANT NEOPLASM OF BREAST Status: Chronic (5) Hypertension Code(s): I10 - ESSENTIAL (PRIMARY) HYPERTENSION Status: Chronic Qualifiers: Comment: (6) Hypothyroidism Code(s): E03.9 - HYPOTHYROIDISM, UNSPECIFIED Status: Chronic Qualifiers: (7) Macrocytic anemia Code(s): D53.9 - NUTRITIONAL ANEMIA, UNSPECIFIED Status: Chronic Comment: (8) Protein-calorie malnutrition, moderate Code(s): E44.0 - MODERATE PROTEIN-CALORIE MALNUTRITION Status: Chronic Comment: (9) Seizure disorder Code(s): G40.909 - EPILEPSY, UNSP, NOT INTRACTABLE, WITHOUT STATUS EPILEPTICUS Status: Chronic Comment: (10) Tobacco abuse Code(s): Z72.0 - TOBACCO USE Status: Chronic (11) Vitamin D deficiency Code(s): E55.9 - VITAMIN D DEFICIENCY, UNSPECIFIED Status: Chronic - Plan cont current plan of care, plan discussed w/ family, PT/OT, delinquency prevention social worker * spoke with mother and who wants pt to go to [facility]nu * welfare case worker is working on her placement * she will need EUS after discharge * medication reviewed as below * symptomatic treatment * continue nutritional support. Review of Systems - Review of Systems Constitutional: weakness. negative: fever, chills, sweats, malaise, other Eyes: negative: Pain, Vision Change, Conjunctivae Inflammation, Eyelid Inflammation, Redness, Other ENT: negative: Ear Pain, Ear Discharge, Nose Pain, Nose Discharge, Nose Congestion, Mouth Pain, Mouth Swelling, Throat Pain, Throat Swelling, Other Respiratory: negative: Cough, Dry, Shortness of Breath, Hemoptysis, SOB with Excertion, Pleuritic Pain, Sputum, Wheezing Cardiovascular: negative: chest pain, palpitations, orthopnea, paroxysmal nocturnal dyspnea, edema, light headedness, other Gastrointestinal: negative: Nausea, Vomiting, Abdominal Pain, Diarrhea, Constipation, Melena, Hematochezia, Other Genitourinary: negative: Dysuria, Frequency, Incontinence, Hematuria, Retention , Other Musculoskeletal: negative: Neck Pain, Shoulder Pain, Arm Pain, Back Pain, Hand Pain, Leg Pain, Foot Pain, Other Skin: negative: Rash, Lesions, Ace, Bruising, Other - Medications/Allergies Allergies/Adverse Reactions: Allergies Allergy/AdvReac Type Severity Reaction Status Date / Time Gadolinium-Containing AdvReac Mild Emesis Verified 04/28/18 22:32 Contrast Medi Medications: Current Medications Acetaminophen (Tylenol) 650 mg PO Q4H PRN PRN Reason: Headache/Fever or Pain Last Admin: 05/01/18 20:50 Dose: 650 mg Amlodipine Besylate (Norvasc) 5 mg PO DAILY [facility] Last Admin: 05/02/18 09:07 Dose: 5 mg Ammonium Lactate (Laclotion) 0 gm TOP BID [facility] Last Admin: 05/02/18 09:09 Dose: 225 gm Bisacodyl (Dulcolax) 10 mg PO DAILYPRN PRN PRN Reason: Constipation Carbamazepine (Tegretol) 200 mg PO TID [facility] Last Admin: 05/02/18 09:08 Dose: 200 mg Famotidine (Pepcid) 20 mg PO QPM [facility] Last Admin: 05/01/18 20:51 Dose: 20 mg Ferrous Sulfate (Feosol) 325 mg PO BID-[facility] Last Admin: 05/02/18 09:08 Dose: 325 mg Folic Acid (Folvite) 1 mg PO DAILY [facility] Last Admin: 05/02/18 09:08 Dose: 1 mg Heparin Sodium (Porcine) (Heparin) 5,000 units SC TID [facility] Last Admin: 05/02/18 09:07 Dose: 5,000 units Lactulose (Lactulose) 20 gm PO DAILYPRN PRN PRN Reason: Constipation Multivitamins (Theragran) 1 tab PO DAILY [facility] Last Admin: 05/02/18 09:08 Dose: 1 tab Ondansetron HCl (Zofran Odt) 4 mg PO Q6H PRN PRN Reason: Nausea/Vomiting Ondansetron HCl (Zofran) 4 mg IVP Q6H PRN PRN Reason: Nausea/Vomiting Senna (Senokot) 2 tab PO HSPRN PRN PRN Reason: Constipation Sodium Chloride (Flush - Normal Saline) 10 ml IVF Q12HR [facility] Last Admin: 05/02/18 09:09 Dose: Not Given Sodium Chloride (Flush - Normal Saline) 10 ml IVF PRN PRN PRN Reason: Saline Flush Thiamine HCl (Thiamine) 100 mg PO DAILY [facility] Last Admin: 05/02/18 09:09 Dose: 100 mg
[2018-05-02] MEDS ORDERED: diphenhydrAMINE 25 MG CAP PO PRN (19:02)
[2018-05-02] MEDS: Famotidine 20 MG TAB PO SCH (20:15)
[2018-05-03] MEDS: Heparin 5,000 UNITS/ML VIAL SC SCH ×2 (08:57→15:48)
[2018-05-03] MEDS: Amlodipine 5 MG TAB PO SCH (08:57)
[2018-05-03] MEDS: carBAMazepine 200 MG TAB PO SCH ×2 (08:57→15:48)
[2018-05-03] MEDS: Folic Acid 1 MG TAB PO SCH (08:58)
[2018-05-03] MEDS: Multivit, Therapeutic 1 TAB PO SCH (08:58)
[2018-05-03] MEDS: Ferrous Sulfate 325 MG TAB PO SCH ×2 (08:58→15:48)
[2018-05-03] MEDS: Ammonium Lactate 12% Lotion 225 GM BOT TOP SCH (08:59)
--- NOTE | 2018-05-03 09:24 | PDOC.PN ---
- Subjective Encounter Start Date: 05/03/18 Encounter Start Time: 08:20 Patient seen and examined. No new complaints. No overnight events - Objective Resuscitation Status: Resuscitation Status FULL:Full Resuscitation MAR Reviewed: Yes Vital Signs & Weight: Vital Signs (12 hours) Temp Pulse Resp BP BP Pulse Ox 05/03/18 08:57 77 152/88 H 05/03/18 07:56 97.8 F 77 16 152/88 H 99 Weight Admit Weight 100 lb 8.493 oz Weight 100 lb 8.493 oz I&O: 05/02/18 05/03/18 05/04/18 06:59 06:59 06:59 Intake Total 1300 700 Balance 1300 700 Result Diagrams: 04/29/18 04:50 04/29/18 04:50 Phys Exam - Physical Examination Constitutional: NAD HEENT: PERRLA, moist MMs, sclera anicteric Neck: no JVD, supple Respiratory: no wheezing, no rales, no rhonchi Cardiovascular: RRR, no significant murmur, no rub Gastrointestinal: soft, non-tender, no distention, positive bowel sounds Musculoskeletal: no edema, pulses present Neurological: non-focal, normal sensation, moves all 4 limbs Psychiatric: normal affect, A&O x 3 Skin: no rash, normal turgor Dx/Plan (1) Pancreatic mass Status: Acute (2) Alcohol abuse Code(s): F10.10 - ALCOHOL ABUSE, UNCOMPLICATED Status: Chronic Comment: (3) CKD (chronic kidney disease) stage 3, GFR 30-59 ml/min Code(s): N18.3 - CHRONIC KIDNEY DISEASE, STAGE 3 (MODERATE) Status: Chronic (4) H/O malignant neoplasm of breast Code(s): Z85.3 - PERSONAL HISTORY OF MALIGNANT NEOPLASM OF BREAST Status: Chronic (5) Hypertension Code(s): I10 - ESSENTIAL (PRIMARY) HYPERTENSION Status: Chronic Qualifiers: Comment: (6) Hypothyroidism Code(s): E03.9 - HYPOTHYROIDISM, UNSPECIFIED Status: Chronic Qualifiers: (7) Macrocytic anemia Code(s): D53.9 - NUTRITIONAL ANEMIA, UNSPECIFIED Status: Chronic Comment: (8) Protein-calorie malnutrition, moderate Code(s): E44.0 - MODERATE PROTEIN-CALORIE MALNUTRITION Status: Chronic Comment: (9) Seizure disorder Code(s): G40.909 - EPILEPSY, UNSP, NOT INTRACTABLE, WITHOUT STATUS EPILEPTICUS Status: Chronic Comment: (10) Tobacco abuse Code(s): Z72.0 - TOBACCO USE Status: Chronic (11) Vitamin D deficiency Code(s): E55.9 - VITAMIN D DEFICIENCY, UNSPECIFIED Status: Chronic - Plan cont current plan of care, PT/OT, social services technician * medication reviewed as below * symptomatic treatment * nutritional support * await placement. Review of Systems - Review of Systems Eyes: negative: Pain, Vision Change, Conjunctivae Inflammation, Eyelid Inflammation, Redness, Other ENT: negative: Ear Pain, Ear Discharge, Nose Pain, Nose Discharge, Nose Congestion, Mouth Pain, Mouth Swelling, Throat Pain, Throat Swelling, Other Respiratory: negative: Cough, Dry, Shortness of Breath, Hemoptysis, SOB with Excertion, Pleuritic Pain, Sputum, Wheezing Cardiovascular: negative: chest pain, palpitations, orthopnea, paroxysmal nocturnal dyspnea, edema, light headedness, other Gastrointestinal: negative: Nausea, Vomiting, Abdominal Pain, Diarrhea, Constipation, Melena, Hematochezia, Other Genitourinary: negative: Dysuria, Frequency, Incontinence, Hematuria, Retention , Other Musculoskeletal: negative: Neck Pain, Shoulder Pain, Arm Pain, Back Pain, Hand Pain, Leg Pain, Foot Pain, Other Skin: negative: Rash, Lesions, Ace, Bruising, Other - Medications/Allergies Allergies/Adverse Reactions: Allergies Allergy/AdvReac Type Severity Reaction Status Date / Time Gadolinium-Containing AdvReac Mild Emesis Verified 04/28/18 22:32 Contrast Medi Medications: Current Medications Acetaminophen (Tylenol) 650 mg PO Q4H PRN PRN Reason: Headache/Fever or Pain Last Admin: 05/01/18 20:50 Dose: 650 mg Amlodipine Besylate (Norvasc) 5 mg PO DAILY [facility] Last Admin: 05/03/18 08:57 Dose: 5 mg Ammonium Lactate (Laclotion) 0 gm TOP BID [facility] Last Admin: 05/03/18 08:59 Dose: 225 gm Bisacodyl (Dulcolax) 10 mg PO DAILYPRN PRN PRN Reason: Constipation Carbamazepine (Tegretol) 200 mg PO TID [facility] Last Admin: 05/03/18 08:57 Dose: 200 mg Diphenhydramine HCl (Benadryl) 25 mg PO Q6H PRN PRN Reason: Itching Last Admin: 05/02/18 20:16 Dose: 25 mg Famotidine (Pepcid) 20 mg PO QPM [facility] Last Admin: 05/02/18 20:15 Dose: 20 mg Ferrous Sulfate (Feosol) 325 mg PO BID-[facility] Last Admin: 05/03/18 08:58 Dose: 325 mg Folic Acid (Folvite) 1 mg PO DAILY [facility] Last Admin: 05/03/18 08:58 Dose: 1 mg Heparin Sodium (Porcine) (Heparin) 5,000 units SC TID [facility] Last Admin: 05/03/18 08:57 Dose: 5,000 units Lactulose (Lactulose) 20 gm PO DAILYPRN PRN PRN Reason: Constipation Multivitamins (Theragran) 1 tab PO DAILY [facility] Last Admin: 05/03/18 08:58 Dose: 1 tab Ondansetron HCl (Zofran Odt) 4 mg PO Q6H PRN PRN Reason: Nausea/Vomiting Ondansetron HCl (Zofran) 4 mg IVP Q6H PRN PRN Reason: Nausea/Vomiting Senna (Senokot) 2 tab PO HSPRN PRN PRN Reason: Constipation Sodium Chloride (Flush - Normal Saline) 10 ml IVF Q12HR [facility] Last Admin: 05/03/18 08:48 Dose: Not Given Sodium Chloride (Flush - Normal Saline) 10 ml IVF PRN PRN PRN Reason: Saline Flush Thiamine HCl (Thiamine) 100 mg PO DAILY [facility] Last Admin: 05/03/18 08:58 Dose: 100 mg
--- NOTE | 2018-05-03 14:25 | DIS ---
DATE OF ADMISSION: 04/28/2018 DATE OF DISCHARGE: 05/03/2018 PRIMARY CARE PHYSICIAN: WALTER Clemente DISCHARGE DISPOSITION: [facility]. PRIMARY DISCHARGE DIAGNOSIS: Pancreatic mass. SECONDARY DISCHARGE DIAGNOSES: Tobacco abuse disorder, alcohol abuse disorder, seizure disorder, pro tein-calorie malnutrition, macrocytic anemia, hypertension, chronic kidney disease stage 3, history o f breast cancer. PRIMARY PROCEDURE/OPERATION: None. RADIOLOGICAL INVESTIGATION: Chest x-ray showed no acute process. Abdomen and pelvis CT scan showed pancreatic cystic lesion. CT brain negative for any acute intracranial process. SIGNIFICANT LABORATORY DATA: WBC 2.4, hemoglobin 9.7, and platelet 212. BMP: Sodium 138, potassium 4.3, BUN 42, creatinine 1.67, calcium 8.4, AST 18, ALT 8, alkaline phosphatase 83, albumin 3.0. Car cinoembryonic antigen 5.57. CA-19-9 was 14. B12 and folate level was normal. Urinalysis unremarkab le. Stool for guaiac negative. DISCHARGE MEDICATIONS: Ferrous sulfate 325 mg p.o. b.i.d., folic acid 1 mg p.o. daily, thiamine 100 mg p.o. daily, multivitamin 1 tablet p.o. daily, Tegretol 200 mg p.o. t.i.d., Pepcid 20 mg p.o. daily , amlodipine 5 mg p.o. daily. CONTRAINDICATIONS: None. CODE STATUS: FULL CODE. INPATIENT CONSULTANTS: Dr. Matias and Dr. Cleveland was following while in hospital. Oncology was followin g while in hospital. TEST RESULTS PENDING ON DISCHARGE: None. ALLERGIES: No known drug allergy other than GADOLINIUM CONTRAST allergy. DISCHARGE PLAN: Post hospital, the patient is planned for discharge to [facility]. HOSPITAL COURSE: A 67-year-old female who was admitted by Dr. Ribera, please see his H&P for further detail. The patient has alcohol and tobacco abuse history as well as patient has protein calorie ma lnutrition. This patient was brought to the ER for altered mental status. The patient had CT brain which was negative for any acute intracranial process. The patient had CT of the abdomen and pelvis, which showed pancreatic cystic lesion. The patient was admitted to medical floor. We consulted Onc ology. Oncology recommended that patient will need outpatient workup. GI was also following and for better diagnosis, this patient will need endoscopic ultrasound which can be done on an outpatient ba [facility]. The patient is instructed to follow up with veterans adviser for outpatient endoscopic ultras ound. This patient is an extremely noncompliant and has ongoing tobacco and alcohol abuse history an d she was not safe at home and that is why we consulted case packer for discharge planning. Case tatiana alvarado arranged [facility]. Overall, this patient is very stable. She is a high risk for recurrent admission and she has protein calorie malnutrition and requires nutritional supplement at retirement. The patient is seen and examined at bedside today. Please see my progress note from today for furthe r detail. Paper work for discharge done. Discharge medication reconciliation done. Total time spent on discharge day 31 minutes.
[2018-05-03 15:55] VITALS: BP 114/75; TEMP 97.7
== END 2018-05-03 16:21 | DRG 812 ==
LOC: ERS 16:38 → T4-A 19:58
PROVIDERS: ADMIT Internal Medicine; ATTEND Internal Medicine
PROC: 30233N1 Transfusion of Nonautologous Red Blood Cells into Peripheral Vein, Percutaneous Approach (ICD-10-PCS; principal; 2018-04-28)
DX: D53.9 Nutritional anemia, unspecified (principal); K86.2 Cyst of pancreas; E44.0 Moderate protein-calorie malnutrition; Z68.1 Body mass index [BMI] 19.9 or less, adult; F10.10 Alcohol abuse, uncomplicated; F17.210 Nicotine dependence, cigarettes, uncomplicated; I12.9 Hypertensive chronic kidney disease with stage 1 through stage 4 chronic kidney disease, or unspecified chronic kidney disease; N18.3 Chronic kidney disease, stage 3 (moderate); E03.9 Hypothyroidism, unspecified; Z85.3 Personal history of malignant neoplasm of breast; G40.909 Epilepsy, unspecified, not intractable, without status epilepticus; E55.9 Vitamin D deficiency, unspecified; E78.5 Hyperlipidemia, unspecified; K80.20 Calculus of gallbladder without cholecystitis without obstruction
CPT/HCPCS: 36415; 36430; 51701; 70450; 71045; 74177; 80053; 80069; 81003; 82274; 82378; 82553; 82607; 82728; 82746; 83540; 83550; 84484; 85025; 85046; 86301; 86850; 86900; 86901; 93005; A4216; A4353; G8978-GP-CL; G8979-GP-CJ; G8987-GO-CJ; G8988-GO-CI; J1644; P9016

== ENCOUNTER 2018-07-10 11:51 | Emergency (ER) | payer MEDICARE | END 2018-07-10 13:42 | disposition home or self-care (01) | LOC: ERS 11:51 | DX: R10.9 Unspecified abdominal pain (principal); D64.9 Anemia, unspecified; I10 Essential (primary) hypertension; F17.210 Nicotine dependence, cigarettes, uncomplicated; Z79.899 Other long term (current) drug therapy | CPT/HCPCS: 93005 ==

== ENCOUNTER 2018-09-17 09:10 | Inpatient (IN) | payer MEDICARE ==
[2018-09-17 09:32] LABS: Actual Bicarbonate (HCO3a) 19.5 mEq/L (22-28); Analyzer IN Cardio ER; Base Excess (BEa) -6.7 mEq/L (-2.0 to +3.0); CO2 Tension 41.7 mmHg (35.0-45.0); Calcium, Ionized 1.09 mmol/L (1.12-1.30); O2 Tension (PaO2) 72.5 mmHg (> 80.0); Potassium - ABG Lab 3.75 mmol/L (3.70-5.30); pH, Arterial 7.29 (7.35-7.45)
[2018-09-17 09:33] LABS: ALV-art Gradient 124.925 (0-20); Puncture Site LBA
[2018-09-17] MEDS ORDERED: Fentanyl 100 MCG/2 ML VIAL ONE (09:38)
[2018-09-17] MEDS ORDERED: fentaNYL Citrate/PF 2,000 MCG in Sodium Chloride 0.9% 60 ML IV SCH (09:53)
[2018-09-17 09:59] LABS: PTT 29.9 SEC (22.9-36.1)
[2018-09-17 10:04] LABS: Mean Corpuscular HGB CONC 32.9 g/dL (32.0-36.0); Mean Platelet Volume 8.1 fL (7.4-10.4); Platelet Count 104 thou/uL (130-400); RBC Distribution Width 15.1 % (11.5-14.5); White Blood Cell (WBC) Count 1.6 thou/uL (4.8-10.8)
[2018-09-17 10:07] LABS: Bilirubin Moderate (Negative); Blood, Urine Negative (Negative); Clarity CLOUDY (Clear); Glucose, Urine (Dipstick) Negative (Negative); Leukocyte Negative (Negative); Nitrite Negative (Negative); Protein, Urine (Dipstick) Negative (Neg-Trace); Specific Gravity, Urine 1.012 (1.002-1.036); Urobilinogen 0.2 mg/dL (0.2-1.0)
--- NOTE | 2018-09-17 10:07 | RAD ---
RADIOGRAPH CHEST 1 VIEW: Date: 09/17/18 Time: 0927 hours HISTORY: 68-year-old female status post intubation. COMPARISON: 04/28/18. FINDINGS: Endotracheal tube has been placed into the mid thoracic trachea. This is a supine image, which would be insensitive for pneumothorax detection. There is a new finding of small patchy air space density a t the right medial lung base. The rest of the lungs are otherwise clear. No cardiomegaly. Lateral cos tophrenic angles are sharp. IMPRESSION: 1. Status post intubation with endotracheal tube. 2. Interval development of a small patchy pulmonary density at the right medial base, nonspecific. JN [] POS: TPC
--- NOTE | 2018-09-17 10:14 | CT ---
CT BRAIN PERFORMED WITHOUT CONTRAST ENHANCEMENT: History: Patient has a history of seizures. Found unresponsive in bed this morning by family. Comparison: 04-28-18 FINDINGS: The ventricular and cisternal system shows generalized atrophy. There is decreased attenuation of the periventricular white matter consistent with chronic ischemic white matter change. Once again a calcified mass is seen just lateral to the left ambient cistern region, probably an extr aaxial lesion related to the tentorium, probably a calcified meningioma. This is stable. Mastoid air cells are clear. There is small air fluid level within the left maxillary sinus. There ar e small air fluid levels in both maxillary sinuses with some minimal associated mucosal disease. Mor e extensive sinus changes of the ethmoid air cells are noted. Endotracheal tube is partially visualiz ed and a portion of what appears to be an NG tube is seen coiled in the nasopharynx region. IMPRESSION: No acute intracranial abnormalities. Other findings as noted above. POS: MEGHANN
[2018-09-17 10:20] LABS: ALT (SGPT) 8 U/L (8-55); AST (SGOT) 43 U/L (5-34); Albumin 3.4 g/dL (3.4-4.8); Alkaline Phosphatase 135 U/L (40-150); Anion Gap 23 mmol/L (10-20); BUN (Urea Nitrogen) 51 mg/dL (9.8-20.1); Bilirubin, Total 0.7 mg/dL (0.2-1.2); Calc. Creatinine Clearance 0 mL/min (70-130); Carbon Dioxide 18 mmol/L (23-31); Chloride 101 mmol/L (98-107); Estimated GFR-MDRD 21; Globulin 2.8 g/dL (2.4-3.5); Glucose 197 mg/dL (80-115); Potassium 4.7 mmol/L (3.5-5.1); Protein, Total 6.2 g/dL (6.0-8.3); Sodium 137 mmol/L (136-145)
[2018-09-17] MEDS ORDERED: Piperacillin/Tazobactam 3.375 GM VIAL ONE (10:31)
[2018-09-17 10:48] LABS: CKMB 1.9 ng/mL (0-6.6)
[2018-09-17 10:50] LABS: Band 46 % (5-11); Eosinophils 2 % (0-10); Lymphocytes 8 % (21-51); MDiff Complete? YES; Macrocytosis MODERATE=16-30 cells (100X) (0-5/hpf); Neutrophil 44 % (42-75); Platelet Morphology Comment Appears Decreased; Polychromasia SLIGHT = 2-3 cells (100X) (0-2/hpf); Reflex for Review?? YES; Schistocytes SLIGHT = 2-5 cells (100X) (0-1/hpf)
[2018-09-17] MEDS ORDERED: Lorazepam 2 MG/ML VIAL ONE (10:59)
[2018-09-17] MEDS ORDERED: Aspirin 300 MG Suppository PR SCH (11:45)
[2018-09-17] MEDS ORDERED: Ventilator Sedation Protocol 1 EACH FS SCH (12:30)
[2018-09-17] MEDS ORDERED: Lorazepam 2 MG/ML VIAL SLOW IVP PRN (12:38)
[2018-09-17 13:39] VITALS: BMI 18.8
[2018-09-17] MEDS ORDERED: Propofol BOLUS 1,000 MG/100 ML VIAL IV PRN (13:47)
[2018-09-17] MEDS ORDERED: Morphine 2 MG/ML SYRINGE SLOW IVP PRN (13:47)
[2018-09-17] MEDS ORDERED: Fentanyl BOLUS 250 ML IVPB PRN (13:47)
[2018-09-17] MEDS ORDERED: Propofol 1,000 MG/100 ML VIAL IV PRN (13:47)
[2018-09-17] MEDS ORDERED: levETIRAcetam 500 MG TAB PO SCH (14:15)
[2018-09-17] MEDS: Sodium Chloride 0.9% 1,000 ML IV SCH ×2 (14:19→20:43)
[2018-09-17] MEDS: Piperacillin/Tazobactam 2.25 GM in Sodium Chloride 0.9% 100 ML IVPB SCH ×2 (14:20→20:40)
[2018-09-17] MEDS: Heparin 5,000 UNITS/ML VIAL SC SCH ×2 (14:20→20:41)
[2018-09-17 14:23] LABS: Lactic Acid 2.8 mmol/L (0.5-2.2)
--- NOTE | 2018-09-17 14:40 | CON ---
DATE OF CONSULTATION: HISTORY OF PRESENT ILLNESS: Dena Oconnell is a 68-year-old, cachectic, female, who has been here numerous times into the hospital, apparently was found unresponsive. Has longstanding history of seizure disorder in the past, found by family members unresponsive this morning. She was able to open her eyes, not verbal, shallow respirations, was intubated and transferred to the hospital. She was given 90 mg of ketamine, 30 mcg of aylin, 45 of fentanyl, IV fluids. Additional history well outlined in numerous medical records pertinent for a pancreatic mass. It is unclear whether any workup has been done so far. History of breast cancer, hypertension, seizure disorders, alcohol abuse, respiratory failure previous, ongoing tobacco abuse. Previous hysterectomy, orthopedic surgery, left hip surgery. Apparently, what were told is she is still smoking and drinking, unknown quantity. Unable to access the information from the patient since she is intubated and sedated. Most recent discharge from the hospital dated 04/23/2018, no more than 5 months ago, stated that she was to be followed up for the pancreatic mass by her GI doctor. HOME MEDICATIONS: Included basically; 1. Thiamin. 2. Tegretol 200 twice a day. 3. Amlodipine 5 mg. 4. Pepcid 20 a day. There are no family members present at the bedside. ALLERGIES: APPARENTLY, SHE HAS NO ALLERGIES EXCEPT FOR GADOLINIUM CONTRAST. PHYSICAL EXAMINATION: VITAL SIGNS: Pulse 120, blood pressure 126/95, , respirations 21. CHEST: Reveals no wheezing or crackles. CARDIAC: Normal S1 and S2. No gallops. No murmurs. ABDOMEN: Soft. Difficult to palpate any masses. She is cachectic. NEUROLOGIC: She is sedated. LABORATORY DATA: White count 1.6, hemoglobin and hematocrit are 10 and 30, and platelet count is low at 104, 46 bands, 44 neutrophils, pO2 is 72, pC02 41, pH 7.29 on 25% FiO2. Lactic acid is 4.3. BUN and creatinine are 51 and 2.7. Lytes were normal. Emergency CT head did not show any acute changes. Chest x-ray post intubation shows no obvious infiltrates. IMPRESSION: 1. Respiratory failure. 2. Metabolic encephalopathy. 3. Renal failure. 4. Pancreatic mass. 5. History of breast cancer. 6. Mild cachexia. 7. History of alcohol abuse. 8. Seizure disorder. 9. Tobacco abuse. We will try and get additional information as family arrives. She is started on broad-spectrum antibiotics as per admitting physician. Stress dose of steroids. Continue seizure medication from home. 45 minutes of critical time. Job ID: [id number] MTDD
--- NOTE | 2018-09-17 14:45 | HP ---
PRIMARY CARE PHYSICIAN: WALTER Austin. CHIEF COMPLAINT: Altered mental status. HISTORY OF PRESENT ILLNESS: Please note that the history of present illness is extremely limited as the patient is currently intubated and unable to give a history. There is no family at the bedside. The history is taken from discussion with the ER physician and the nursing staff in the hospital. Ms. Oconnell is a 68-year-old female, who was recently discharged from our hospital back in April of 2018 for altered mental status. She has a history of alcohol abuse, hypertension, and seizure disorder. At that time, she was treated and found to have a pancreatic mass. She was seen by Gastroenterology and it was recommended that she seek followup at a referral center for an endoscopic ultrasound. It is unclear what her followup has been; however, it is reported that she may have been at [facility] recently to have an MRI. Unclear if this was an MRI of the pancreas. She was noted by her daughter to feel somewhat sick yesterday complaining of some nausea. Then apparently, they came and saw her this morning. She was slumped over in the chair and it looked like she had some vomitus at the side of the mouth. EMS was called and she was brought to the hospital. En route to the hospital, she vomited again. There was concern that due to her being obtunded that she could not protect her airway and she was intubated en route. When she arrived to the hospital here, she was found to be relatively hypotensive, found to be hypothermic, tachycardic, and pancytopenic. She is being admitted to the ICU for further treatment and evaluation. It is also noted a CT scan of the brain was done, which was negative for any acute process, and she had a chest x-ray, which was suspicious for a right middle lobe infiltrate. REVIEW OF SYSTEMS: The review of systems is unobtainable due to the patient being intubated. PAST MEDICAL HISTORY: Past medical history is taken from a previous history and physical dated April 29, 2018, and includes anemia, hypertension, seizure disorder, chronic kidney disease stage 3, recent development of a pancreatic mass, and alcohol abuse. PAST SURGICAL HISTORY: She has had a left hip replacement. ALLERGIES: NO KNOWN DRUG ALLERGIES. FAMILY HISTORY: Unobtainable as no family is at bedside. The patient is intubated. SOCIAL HISTORY: It is reported she drinks about five drinks a day and continues to drink. Positive for tobacco use as well. Code status assumed to be full code as she is currently intubated. This will need to be clarified with family. CURRENT MEDICATIONS: These are taken from the ER records and include; 1. Lisinopril/hydrochlorothiazide 20/12.5 once a day. 2. Aldactone 25 mg daily. 3. Folic acid 1 mg daily. 4. Keppra 500 mg twice a day. 5. Vitamin B12 complex 1000 mcg daily. 6. Carbamazepine 200 mg t.i.d. 7. Iron sulfate 325 mg once daily. 8. Sertraline 50 mg daily. 9. Pantoprazole 40 mg daily. PHYSICAL EXAMINATION: GENERAL: She is intubated, she appears chronically ill. She apparently was moving all extremities prior to intubation. VITAL SIGNS: Blood pressure was 146/101, heart rate is in the 120s, currently 109, respiratory rate of 10, her core temperature initially was 95.5. HEENT: She does have some temporal wasting. Poor dentition. Pupils are reactive to light; however, extraocular muscles are intact. NECK: There is no adenopathy. LUNGS: She has coarse breath sounds bilaterally. No wheezing. No rales. CARDIOVASCULAR: She has a normal S1 and S2. There is no S3 or S4. No murmurs, clicks, or rubs. ABDOMEN: Soft. It is nontender and nondistended. Positive for bowel sounds. No rebound or guarding. EXTREMITIES: There is no edema. She has significant muscle atrophy. Neurologic: Again, she was moving all extremities prior to intubation. SKIN AND INTEGUMENT: No skin changes. No rash. LABORATORY DATA: Urinalysis was negative. On her EKG, it is sinus rhythm, heart rate is in the 120s with some nonspecific ST wave changes, this was by my reading. On her chest x-ray by my reading, heart size is normal. She does have some hazy infiltrate in the right mid lung field. There is no effusion and no pneumothorax. Her CBC; white blood cell count 1.6, hemoglobin 10, hematocrit is 30.3, and platelet count is 104. INR is 1.0. Chemistry; sodium 137, potassium 4.7, chloride is 101, CO2 is 18, BUN of 51, creatinine 2.7, glucose is 197. Troponin is 0.074. ASSESSMENT: This is a 68-year-old female, who was found minimally responsive at home, appears to be vomited and possibly aspirated. She is septic and pancytopenic and suffered a seizure shortly after being treated in the emergency room. There is also some question of possible pancreatic cancer. 1. Acute respiratory failure, this is likely due to an aspiration pneumonia. She is currently intubated. We will continue empiric IV antibiotics primarily to cover for aspiration. Pulmonology and Critical Care has been consulted. 2. Sepsis. She meets sepsis criteria with hypothermia, tachycardia, and hypotension. Also, her lactic acid is elevated. Again, broad-spectrum IV antibiotics. Blood cultures will be done and she is being currently fluid resuscitated and may require pressors. 3. Aspiration pneumonia, alcohol abuse puts her at risk for this. Continue Zosyn and we will follow Pulmonology recommendations. 4. Pancytopenia. I suspect this is from alcohol abuse. I will review her records and see if this has been evaluated in the past. 5. Seizure disorder. We will continue Keppra; however, we will place this IV and place her on seizure precautions. 6. Pancreatic mass. We will request records from [facility] to see if this is currently under evaluation. 7. Malnutrition. At least moderate malnutrition, which would likely complicate her recovery. Job ID: [id number]
[2018-09-17] MEDS ORDERED: carBAMazepine 200 MG TAB PO SCH (15:00)
[2018-09-17] MEDS: Lorazepam 2 MG/ML VIAL SLOW IVP PRN (17:38)
[2018-09-17] MEDS: levETIRAcetam 500 MG TAB PO SCH (20:42)
[2018-09-17] MEDS: Famotidine/PF 20 mg/2ml Vial SLOW IVP SCH (20:42)
[2018-09-18 04:55] LABS: #Lymphocytes 0.4 thou/uL (1.20-3.40); #Monocytes 0.1 thou/uL (0.11-0.59); #Neutrophils 1.3 thou/uL (1.40-6.50); %Basophils 0.6 % (0.0-1.0); %Eosinophils 0.9 % (0.0-10.0); %Lymphocytes 19.6 % (21.0-51.0); %Monocytes 7.1 % (0.0-10.0); %Neutrophils 71.9 % (42.0-75.0); Hemoglobin 7.8 g/dL (12.0-16.0); Mean Corpuscular HGB CONC 33.4 g/dL (32.0-36.0); Mean Corpuscular Hemoglobin 37.1 pg (27.0-31.0); Mean Platelet Volume 8.3 fL (7.4-10.4); Platelet Count 56 thou/uL (130-400); RBC Distribution Width 15.3 % (11.5-14.5); Red Blood Cell (RBC) Count 2.11 mill/uL (4.20-5.40); White Blood Cell (WBC) Count 1.8 thou/uL (4.8-10.8)
[2018-09-18 05:12] LABS: Anion Gap 15 mmol/L (10-20); BUN (Urea Nitrogen) 43 mg/dL (9.8-20.1); Calc. Creatinine Clearance 20 mL/min (70-130); Calcium 7.5 mg/dL (7.8-10.44); Carbon Dioxide 16 mmol/L (23-31); Chloride 112 mmol/L (98-107); Estimated GFR-MDRD 27; Glucose 107 mg/dL (80-115); Potassium 4.9 mmol/L (3.5-5.1); Sodium 138 mmol/L (136-145)
[2018-09-18] MEDS: Piperacillin/Tazobactam 2.25 GM in Sodium Chloride 0.9% 100 ML IVPB SCH ×3 (05:40→20:23)
[2018-09-18] MEDS: Sodium Chloride 0.9% 1,000 ML IV SCH ×3 (05:41→20:25)
[2018-09-18 06:54] LABS: Actual Bicarbonate (HCO3a) 18.5 mEq/L (22-28); Base Excess (BEa) -5.7 mEq/L (-2.0 to +3.0); CO2 Tension 31.4 mmHg (35.0-45.0); Calcium, Ionized 1.07 mmol/L (1.12-1.30); Carboxyhemoglobin (COHb) 1.1 gm% (0.0-3.0); Hemoglobin (Hb) 9.1 g/dL (12.0-16.0); O2 Tension (PaO2) 98.6 mmHg (> 80.0); Potassium - ABG Lab 4.58 mmol/L (3.70-5.30); pH, Arterial 7.39 (7.35-7.45)
[2018-09-18 06:55] LABS: Puncture Site RRA
--- NOTE | 2018-09-18 07:48 | RAD ---
CHEST 1 VIEW: Date: 09/18/18 INDICATION: Intubation. COMPARISON: Prior exam dated 09/17/18. FINDINGS: The patient is intubated. There is a gastric catheter placement. The tip of the catheter is seen with in the region of the gastric cardia. There is some obscuration of portions of the left hemidiaphragm which may reflect new pleural effusio n or areas of subsegmental atelectasis. Recommend consideration for suctioning and repeat chest radio graph. No definite pneumothorax is evident. IMPRESSION: 1. Left basilar pleural parenchymal opacities, new from the comparison examination, may reflect subs egmental atelectasis or development of a small pleural effusion. Recommend consideration for suctioni ng and repeat chest radiograph. 2. Gastric catheter tip projects in the region of the gastric cardia. POS: BH
[2018-09-18] MEDS: Lorazepam 2 MG/ML VIAL SLOW IVP PRN (08:01)
[2018-09-18] MEDS: Famotidine/PF 20 mg/2ml Vial SLOW IVP SCH ×2 (08:23→20:24)
[2018-09-18] MEDS: levETIRAcetam 500 MG TAB PO SCH ×3 (08:23→20:46)
[2018-09-18] MEDS: Folic Acid 1 MG TAB PO SCH (08:23)
[2018-09-18] MEDS: Multivit, Therapeutic 1 TAB PO SCH (08:23)
[2018-09-18] MEDS ORDERED: Thiamine HCl 200 MG/2 ML VIAL SLOW IVP SCH (09:00)
--- NOTE | 2018-09-18 09:02 | PRG ---
DATE OF SERVICE: 09/18/2018 SUBJECTIVE: This morning intubated on the vent, low-dose Ventolin, though she opens her eyes, moves all four extremities. OBJECTIVE: VITAL SIGNS: Blood pressure is 93/65, pulse 80, respiratory rate 18, and afebrile. CHEST: Decreased breath sounds. Minimal rhonchi. CARDIAC: Normal S1 and S2. No gallops. ABDOMEN: Soft. LABORATORY DATA: Shows pancytopenia. White count 1.8, H and H of 7 and 23, platelet count 56, big left shift. PO2 is 98, pCO2 of 31, pH 7.39. X-ray shows right-sided infiltrate. BUN and creatinine of 43 and 2.17. Lactic acid is 2.8. X-ray shows a new left-sided infiltrate. IMPRESSION: 1. Respiratory failure, left-sided pneumonia. 2. Encephalopathy. 3. Seizure disorder. 4. Renal failure. Keppra, antibiotics, neb treatments, steroids, thiamine. Consider weaning and extubation. Try and get additional information from family as they arrive. Prognosis is grave. One-half hour of critical time. Job ID: [id number]
--- NOTE | 2018-09-18 10:37 | PDOC.PN ---
- Subjective Encounter Start Date: 09/18/18 Encounter Start Time: 10:36 Ms. Oconnell was seen today in follow-up of acute respiratory failure. she has been extubated. She is awake, but not answering questions. - Objective Resuscitation Status - Order Detail: 09/17/18 12:16 Resuscitation Status Routine Resuscitation Status: FULL: Full Resuscitation MAR Reviewed: Yes Vital Signs & Weight: Vital Signs (12 hours) Temp Pulse Resp BP Pulse Ox 09/18/18 08:56 101 H 24 H 97 09/18/18 08:00 12 09/18/18 07:27 100 09/18/18 07:00 98.3 F 09/18/18 06:37 92 91/66 09/18/18 06:00 11 L 09/18/18 04:00 98.0 F 12 09/18/18 02:18 90 122/85 09/18/18 02:00 14 09/18/18 00:00 15 09/17/18 23:00 98.9 F Weight Admit Weight 109 lb 12.643 oz Weight 109 lb 12.643 oz Most Recent Monitor Data Heart Rate from ECG 91 NIBP 96/71 NIBP BP-Mean 79 Respiration from ECG 16 SpO2 100 I&O: 09/17/18 09/18/18 09/19/18 06:59 06:59 06:59 Intake Total 1945 0 Output Total 635 110 Balance 1310 -110 Result Diagrams: 09/18/18 03:57 09/18/18 03:57 Phys Exam - Physical Examination HEENT: PERRLA + rales at the bases Cardiovascular: RRR, no significant murmur, no rub Gastrointestinal: soft, non-tender, no distention, positive bowel sounds Musculoskeletal: no edema, pulses present muscle wasting throughout Dx/Plan (1) Acute respiratory failure Code(s): J96.00 - ACUTE RESPIRATORY FAILURE, UNSP W HYPOXIA OR HYPERCAPNIA Status: Acute (2) Pneumonia Code(s): J18.9 - PNEUMONIA, UNSPECIFIED ORGANISM Status: Acute (3) Pancytopenia Code(s): D61.818 - OTHER PANCYTOPENIA Status: Acute (4) Sepsis Code(s): A41.9 - SEPSIS, UNSPECIFIED ORGANISM Status: Acute (5) Pancreatic mass Status: Acute (6) Alcohol abuse Code(s): F10.10 - ALCOHOL ABUSE, UNCOMPLICATED Status: Chronic Comment: (7) Protein-calorie malnutrition, moderate Code(s): E44.0 - MODERATE PROTEIN-CALORIE MALNUTRITION Status: Chronic Comment: (8) Seizure disorder Code(s): G40.909 - EPILEPSY, UNSP, NOT INTRACTABLE, WITHOUT STATUS EPILEPTICUS Status: Chronic Comment: (9) Acute kidney injury Code(s): N17.9 - ACUTE KIDNEY FAILURE, UNSPECIFIED Status: Acute - Plan * Acute respiratory failure- improved- she is now extubated * Pneumonia- probable aspiration- continue Zosyn * Seizure disorder- continue Keppra * Sepsis- improving- continue IV fluids, as tolerated, and Zosyn- follow-up on culture results * HORTENCIA- imprvoing * Alcohol abuse- continue thiamine and folic acid supplementation * Pancreatic Mass- will clarify with family what work-up has been done * Pancytopenia- likely from alcohol abuse * Overall Prognosis is guarded .
[2018-09-18] MEDS ORDERED: DC Sedation Protocol FS ONE (15:25)
[2018-09-19] MEDS: Piperacillin/Tazobactam 2.25 GM in Sodium Chloride 0.9% 100 ML IVPB SCH (06:23)
[2018-09-19] MEDS: Sodium Chloride 0.9% 1,000 ML IV SCH (06:24)
[2018-09-19 08:48] LABS: Anion Gap 19 mmol/L (10-20); BUN (Urea Nitrogen) 43 mg/dL (9.8-20.1); Calc. Creatinine Clearance 21 mL/min (70-130); Calcium 8.1 mg/dL (7.8-10.44); Carbon Dioxide 12 mmol/L (23-31); Chloride 118 mmol/L (98-107); Estimated GFR-MDRD 29; Glucose 101 mg/dL (80-115); Potassium 4.1 mmol/L (3.5-5.1); Sodium 145 mmol/L (136-145)
[2018-09-19 08:53] LABS: Hemoglobin 8.4 g/dL (12.0-16.0); Mean Corpuscular HGB CONC 32.2 g/dL (32.0-36.0); Mean Corpuscular Hemoglobin 35.9 pg (27.0-31.0); Platelet Count 51 thou/uL (130-400); RBC Distribution Width 15.5 % (11.5-14.5); Red Blood Cell (RBC) Count 2.33 mill/uL (4.20-5.40); White Blood Cell (WBC) Count 5.3 thou/uL (4.8-10.8)
[2018-09-19] MEDS: Multivit, Therapeutic 1 TAB PO SCH (08:53)
[2018-09-19] MEDS: Famotidine/PF 20 mg/2ml Vial SLOW IVP SCH (08:53)
[2018-09-19] MEDS: Folic Acid 1 MG TAB PO SCH (08:53)
[2018-09-19 08:54] LABS: #Lymphocytes 0.5 thou/uL (1.20-3.40); #Monocytes 0.4 thou/uL (0.11-0.59); #Neutrophils 4.4 thou/uL (1.40-6.50); %Eosinophils 0.2 % (0.0-10.0); %Lymphocytes 9.2 % (21.0-51.0); %Monocytes 6.8 % (0.0-10.0); %Neutrophils 83.8 % (42.0-75.0)
--- NOTE | 2018-09-19 08:59 | PDOC.PN ---
- Subjective Encounter Start Date: 09/19/18 Encounter Start Time: 08:57 Ms. Oconnell was seen today in follow-up of acute respiratory distress. She is awake and alert, but confused. She believes it is 1990, and she does not know where she is. it also appeared she was talking to someone who was not in the room. - Objective Resuscitation Status - Order Detail: 09/17/18 12:16 Resuscitation Status Routine Resuscitation Status: FULL: Full Resuscitation MAR Reviewed: Yes Vital Signs & Weight: Vital Signs (12 hours) Temp Pulse Resp Pulse Ox 09/19/18 07:49 98 28 H 98 09/19/18 07:24 100 09/19/18 07:00 97.7 F 09/19/18 04:00 98.2 F 09/19/18 00:50 97 28 H 98 Weight Admit Weight 109 lb 12.643 oz Weight 109 lb 12.643 oz Most Recent Monitor Data Heart Rate from ECG 100 NIBP 133/107 NIBP BP-Mean 115 Respiration from ECG 20 SpO2 100 I&O: 09/18/18 09/19/18 09/20/18 06:59 06:59 06:59 Intake Total 1945 3055 Output Total 635 781 53 Balance 1310 2274 -53 Result Diagrams: 09/19/18 08:03 09/19/18 08:03 Phys Exam - Physical Examination HEENT: PERRLA, sclera anicteric poor dentition, temporal wasting Respiratory: no wheezing, no rales, no rhonchi, clear to auscultation bilateral Cardiovascular: RRR, no significant murmur, no rub Gastrointestinal: soft, non-tender, no distention, positive bowel sounds Musculoskeletal: no edema, pulses present muscle wasting Dx/Plan (1) Acute respiratory failure Code(s): J96.00 - ACUTE RESPIRATORY FAILURE, UNSP W HYPOXIA OR HYPERCAPNIA Status: Acute (2) Pneumonia Code(s): J18.9 - PNEUMONIA, UNSPECIFIED ORGANISM Status: Acute (3) Pancytopenia Code(s): D61.818 - OTHER PANCYTOPENIA Status: Acute (4) Sepsis Code(s): A41.9 - SEPSIS, UNSPECIFIED ORGANISM Status: Acute (5) Pancreatic mass Status: Acute (6) Alcohol abuse Code(s): F10.10 - ALCOHOL ABUSE, UNCOMPLICATED Status: Chronic Comment: (7) Protein-calorie malnutrition, moderate Code(s): E44.0 - MODERATE PROTEIN-CALORIE MALNUTRITION Status: Chronic Comment: (8) Seizure disorder Code(s): G40.909 - EPILEPSY, UNSP, NOT INTRACTABLE, WITHOUT STATUS EPILEPTICUS Status: Chronic Comment: (9) Acute kidney injury Code(s): N17.9 - ACUTE KIDNEY FAILURE, UNSPECIFIED Status: Acute - Plan * Acute respiratory failure- improved * Probable Aspiration Pneumonia - continue Zosyn * Seizure disorder- clinically stable- continue Keppra * Alcohol Abuse- continue thiamine and folic acid supplementation * Acute kidney injury- improving * Pancreatic Mass- still await records from [facility] * She appears stable for transfer out of the ICU.
--- NOTE | 2018-09-19 09:09 | PRG ---
DATE OF SERVICE: 09/19/2018 SUBJECTIVE: A 68-year-old female who was extubated yesterday. This morning, she is much more awake, responsive, verbalizing appropriately, slightly encephalopathic. Moves all four extremities. Awaiting speech to see when she can have a diet, but looks like she is quite appropriate. OBJECTIVE: VITAL SIGNS: Sats are 98 on 2 L, blood pressure 133/107, and respiratory rate 18. CHEST: Decreased breath sounds. Minimal rhonchi. CARDIAC: Normal S1 and S2. No gallops. ABDOMEN: No masses. IMPRESSION: 1. Left-sided pneumonia. 2. Seizure disorder. 3. Encephalopathy. 4. Alcohol abuse. PLAN: Pulmonary kim, she can be transferred out of the ICU. Lab awaiting this morning, diet, supportive care. One-half hour of critical time. Job ID: [id number]
--- NOTE | 2018-09-19 09:10 | RAD ---
RADIOGRAPH CHEST 1 VIEW: Date: 09-19-18 Time: 3:37 a.m. HISTORY: 68-year-old female in respiratory distress. COMPARISON: 09-18-18 at 4:42 a.m. FINDINGS: Endotracheal tube and NG tube have been removed. There continues to be opacification of the retrocard iac portion of the left lower lobe, with silhouetting of the left hemidiaphragm. Mild haziness of the rest of the lung smiley. No pneumothorax identified. No cardiomegaly. IMPRESSION: 1. Status post extubation. 2. Left lower lobe pulmonary parenchymal opacity plus probable pleural effusion remain. DIA POS: BRUNILDA
[2018-09-19 09:42] LABS: Band 38 % (5-11); Eosinophils 1 % (0-10); Lymphocytes 9 % (21-51); MDiff Complete? YES; Macrocytosis MODERATE=16-30 cells (100X) (0-5/hpf); Monocytes 7 % (0-10); Neutrophil 44 % (42-75); Platelet Morphology Comment P; Polychromasia SLIGHT = 2-3 cells (100X) (0-2/hpf); Reactive Lymphocytes 1 % (0-10); Schistocytes SLIGHT = 2-5 cells (100X) (0-1/hpf); Vacuoles SLIGHT
[2018-09-19] MEDS: levETIRAcetam 500 MG TAB PO SCH ×2 (09:50→20:31)
[2018-09-19] MEDS ORDERED: Lorazepam 2 MG/ML VIAL SLOW IVP PRN (18:16)
[2018-09-20] MEDS: levETIRAcetam 500 MG TAB PO SCH (08:12)
[2018-09-20] MEDS: Folic Acid 1 MG TAB PO SCH (08:12)
[2018-09-20] MEDS: Multivit, Therapeutic 1 TAB PO SCH (08:12)
--- NOTE | 2018-09-20 09:22 | PRG ---
DATE OF SERVICE: 09/20/2018 SUBJECTIVE: Dena Oconnell is awake, alert, responsive, still encephalopathic. OBJECTIVE: VITAL SIGNS: But, saturations are 90% on room air, temperature 97, pulse 92, and blood pressure 149/95. CHEST: No wheezing or crackles. CARDIAC: Normal S1 and S2. No gallops. ABDOMEN: No masses. She still has some bandemia. Last chest x-ray showed small retrocardiac infiltrate. IMPRESSION: Metabolic encephalopathy, seizure disorders, pneumonia, tobacco abuse, and alcohol abuse. PLAN: From the Pulmonary standpoint of view, she is stable enough. She is discharged home on p.o. antibiotics. Follow up with the primary care physician. Job ID: [id number]
[2018-09-20 09:45] LABS: Hemoglobin 7.7 g/dL (12.0-16.0); Mean Corpuscular HGB CONC 32.9 g/dL (32.0-36.0); Mean Corpuscular Hemoglobin 37.5 pg (27.0-31.0); Mean Platelet Volume 8.6 fL (7.4-10.4); Platelet Count 52 thou/uL (130-400); RBC Distribution Width 15.5 % (11.5-14.5); Red Blood Cell (RBC) Count 2.05 mill/uL (4.20-5.40); White Blood Cell (WBC) Count 4.9 thou/uL (4.8-10.8)
[2018-09-20 10:01] LABS: Anion Gap 20 mmol/L (10-20); BUN (Urea Nitrogen) 48 mg/dL (9.8-20.1); Calc. Creatinine Clearance 20 mL/min (70-130); Calcium 8.7 mg/dL (7.8-10.44); Carbon Dioxide 12 mmol/L (23-31); Chloride 119 mmol/L (98-107); Estimated GFR-MDRD 27; Glucose 103 mg/dL (80-115); Sodium 147 mmol/L (136-145)
[2018-09-20 11:20] LABS: Band 4 % (5-11); Lymphocytes 8 % (21-51); MDiff Complete? YES; Macrocytosis MODERATE=16-30 cells (100X) (0-5/hpf); Monocytes 3 % (0-10); Neutrophil 85 % (42-75); Platelet Morphology Comment Appears Decreased; Polychromasia SLIGHT = 2-3 cells (100X) (0-2/hpf)
--- NOTE | 2018-09-20 11:52 | PDOC.PN ---
- Subjective Encounter Start Date: 09/20/18 Encounter Start Time: 11:50 Ms. Oconnell was seen for follow-up of pneumonia. She is a bit more oriented today. - Objective Resuscitation Status - Order Detail: 09/17/18 12:16 Resuscitation Status Routine Resuscitation Status: FULL: Full Resuscitation MAR Reviewed: Yes Vital Signs & Weight: Vital Signs (12 hours) Temp Pulse Resp BP Pulse Ox 09/20/18 08:00 98 09/20/18 07:37 97.8 F 92 16 144/95 H 98 09/20/18 07:34 100 09/20/18 07:30 90 20 100 09/20/18 04:49 97.8 F 90 16 133/95 H 100 09/20/18 00:56 97.8 F 90 16 149/98 H 100 09/20/18 00:50 90 24 H 100 Weight Admit Weight 109 lb 12.643 oz Weight 109 lb 12.643 oz Most Recent Monitor Data Heart Rate from ECG 102 NIBP 144/93 NIBP BP-Mean 110 Respiration from ECG 24 SpO2 100 I&O: 09/19/18 09/20/18 09/21/18 06:59 06:59 06:59 Intake Total 3055 950 Output Total 781 603 500 Balance 2274 347 -500 Result Diagrams: 09/20/18 09:27 09/20/18 09:27 Phys Exam - Physical Examination HEENT: PERRLA poor denition Respiratory: no wheezing, no rales, no rhonchi, clear to auscultation bilateral Cardiovascular: RRR, no significant murmur, gallop Gastrointestinal: soft, non-tender, positive bowel sounds Musculoskeletal: no edema Dx/Plan (1) Acute respiratory failure Code(s): J96.00 - ACUTE RESPIRATORY FAILURE, UNSP W HYPOXIA OR HYPERCAPNIA Status: Acute (2) Pneumonia Code(s): J18.9 - PNEUMONIA, UNSPECIFIED ORGANISM Status: Acute (3) Pancytopenia Code(s): D61.818 - OTHER PANCYTOPENIA Status: Acute (4) Sepsis Code(s): A41.9 - SEPSIS, UNSPECIFIED ORGANISM Status: Acute (5) Pancreatic mass Status: Acute (6) Alcohol abuse Code(s): F10.10 - ALCOHOL ABUSE, UNCOMPLICATED Status: Chronic Comment: (7) Protein-calorie malnutrition, moderate Code(s): E44.0 - MODERATE PROTEIN-CALORIE MALNUTRITION Status: Chronic Comment: (8) Seizure disorder Code(s): G40.909 - EPILEPSY, UNSP, NOT INTRACTABLE, WITHOUT STATUS EPILEPTICUS Status: Chronic Comment: (9) Acute kidney injury Code(s): N17.9 - ACUTE KIDNEY FAILURE, UNSPECIFIED Status: Acute - Plan * Pneumonia- resolving * Alcohol abuse- she continues to drink, according to her mother- this was discussed * She is stable for discharge home..
[2018-09-20 15:23] VITALS: BP 130/85; TEMP 97.5
--- NOTE | 2018-09-21 01:05 | DIS ---
DATE OF ADMISSION: 09/17/2018 DATE OF DISCHARGE: 09/20/2018 PRIMARY CARE PHYSICIAN: WALTER Austin. DISCHARGE DISPOSITION: Home. PRIMARY DIAGNOSES: 1. Acute respiratory failure with hypoxemia. 2. Pneumonia, probable aspiration pneumonia. 3. Sepsis due to #2. 4. Pancytopenia. 5. Seizure disorder. 6. Pancreatic mass. 7. Moderate malnutrition. DISCHARGE MEDICATIONS: Include, 1. Levaquin 500 mg daily. 2. Thiamine 100 mg daily. 3. Multivitamin once a day. 4. Folic acid 1 mg daily. 5. Iron sulfate 325 mg twice daily. 6. Spironolactone 25 mg daily. 7. Sertraline 50 mg daily. 8. Protonix 40 mg daily. 9. Lisinopril/hydrochlorothiazide 20/12.5 daily. 10. Keppra 500 mg twice a day. PROCEDURES DONE DURING ADMISSION: The patient had a CT scan of the brain, which was negative for any acute intracranial abnormalities. CODE STATUS: Full code. ALLERGIES: GADOLINIUM. HOSPITAL COURSE: Ms. Oconnell is a pleasant 68-year-old female who presented to the emergency room with complaints of altered mental status. She actually was admitted with altered mental status. She was found down at home, slumped over. The full details of which are outlined in the history and physical. She needed intubation to protect her airway. She was admitted and placed in ICU. Pulmonary Critical Care medicine was consulted. She was actually able to be extubated the following day. Chest x-ray demonstrated a left lower lobe infiltrate. She is also noticed to be pancytopenic, which is probably from alcohol abuse. I did talk to the patient's mother on the phone and she admits that the patient continues to drink. She also had a questionable pancreatic mass which is being worked up as an outpatient. She apparently had gone to [facility] and had an MRI done. These records were requested, but we did not receive them prior to the patient being discharged. I did express concern to the patient's mother to follow up on the evaluation of this as this could be a pancreatic cancer. The patient improved with regard to her mental status over the next couple of days. She did have some degree of baseline confusion at discharge, but it did improve dramatically from admission. The patient's mother admits that she has confusion at home as well. She was discharged home on 09/20/2018, to have close outpatient followup. Job ID: [id number]
== END 2018-09-20 15:20 | disposition home or self-care (01) | DRG 871 ==
LOC: ERS 09:10 → CCU 12:59 → T4-B 09-19 10:52
PROVIDERS: ADMIT Internal Medicine; ATTEND Internal Medicine
PROC: 0BH17EZ Insertion of Endotracheal Airway into Trachea, Via Natural or Artificial Opening (ICD-10-PCS; principal; 2018-09-17)
PROC: 5A1935Z Respiratory Ventilation, Less than 24 Consecutive Hours (ICD-10-PCS; 2018-09-17)
DX: A41.9 Sepsis, unspecified organism (principal); J69.0 Pneumonitis due to inhalation of food and vomit; G93.41 Metabolic encephalopathy; J96.01 Acute respiratory failure with hypoxia; D61.818 Other pancytopenia; E44.0 Moderate protein-calorie malnutrition; Z68.1 Body mass index [BMI] 19.9 or less, adult; N17.9 Acute kidney failure, unspecified; G40.909 Epilepsy, unspecified, not intractable, without status epilepticus; K86.9 Disease of pancreas, unspecified; F10.10 Alcohol abuse, uncomplicated
CPT/HCPCS: 36415; 51702; 70450; 71045; 80048; 80053; 81003; 82533; 82553; 82805; 83605; 83880; 84484; 85025; 85060; 85610; 85730; 87040; 87070; 87086; 87205; 93005; 94002; 94003; 94640; 96365; 96366; 96368; 96375; 96376; J1644; J1953; J1956; J2060; J2543; J2920; J3010; J3370; J7050; J7620; S0028

== ENCOUNTER 2018-12-26 11:31 | Observation (INO) | payer MEDICARE ==
[2018-12-26 12:35] LABS: Hemoglobin 7.7 g/dL (12.0-16.0); Mean Corpuscular HGB CONC 33.9 g/dL (32.0-36.0); Mean Corpuscular Hemoglobin 39.1 pg (27.0-31.0); Mean Platelet Volume 6.7 fL (7.4-10.4); Platelet Count 217 thou/uL (130-400); RBC Distribution Width 13.8 % (11.5-14.5); Red Blood Cell (RBC) Count 1.96 mill/uL (4.20-5.40); White Blood Cell (WBC) Count 2.7 thou/uL (4.8-10.8)
[2018-12-26 12:55] LABS: ALT (SGPT) Less than 7 U/L (8-55); AST (SGOT) 16 U/L (5-34); Albumin 3.6 g/dL (3.4-4.8); Alkaline Phosphatase 109 U/L (40-150); Anion Gap 29 mmol/L (10-20); BUN (Urea Nitrogen) 71 mg/dL (9.8-20.1); Bilirubin, Total 0.4 mg/dL (0.2-1.2); Calc. Creatinine Clearance 0 mL/min (70-130); Calcium 9.4 mg/dL (7.8-10.44); Carbon Dioxide 17 mmol/L (23-31); Chloride 95 mmol/L (98-107); Estimated GFR-MDRD 26; Globulin 2.7 g/dL (2.4-3.5); Lipase 21 U/L (8-78); Potassium 4.9 mmol/L (3.5-5.1); Protein, Total 6.3 g/dL (6.0-8.3); Sodium 136 mmol/L (136-145)
[2018-12-26 13:05] LABS: #Lymphocytes 0.5 thou/uL (1.20-3.40); #Monocytes 0.2 thou/uL (0.11-0.59); %Basophils 0.1 % (0.0-1.0); %Eosinophils 0.9 % (0.0-10.0); %Lymphocytes 17.5 % (21.0-51.0); %Monocytes 8.6 % (0.0-10.0); MDiff Complete? YES; Macrocytosis SLIGHT = 6-15 cells (100X) (0-5/hpf); Platelet Morphology Comment Appears Adequate
[2018-12-26 13:10] LABS: Glucose 53 mg/dL (80-115)
[2018-12-26] MEDS ORDERED: Ondansetron PF 4 MG/2 ML Vial ONE (13:33)
--- NOTE | 2018-12-26 13:45 | RAD ---
UPRIGHT PORTABLE CHEST 1 VIEW: Date: 12/26/18 HISTORY: Vomiting. FINDINGS: Monitor leads overlie the chest. Arthrosis changes of both shoulders. Healed rib fractures on the lef t side. IMPRESSION: No acute intrathoracic disease. Shoulder joint arthrosis. Atherosclerosis of aorta with ectasia. POS: C
[2018-12-26 14:11] LABS: Magnesium 1.4 mg/dL (1.6-2.6)
--- NOTE | 2018-12-26 14:22 | CT ---
CT abdomen and pelvis without IV contrast. Oral contrast was not administered. INDICATIONS: Abdominal pain. Vomiting. COMPARISON: 03/09/2018 FINDINGS: Lung bases are clear Liver and spleen unremarkable. Images of the pancreas again show a low-density mass in head of pancreas. This was described on the p rior exam. Evaluation and comparison is difficult due to the noncontrasted study. Recommend follow-up exam with IV contrast following pancreatic protocol. Tiny calcifications gallbladder fundus consistent with small gallstones. Stomach and duodenum appear unremarkable. Adrenal glands appear normal. Kidneys appear unremarkable. Collecting structures and urinary bladder appear unremarkable. Small bowel loops are normal caliber and exhibit normal fold pattern. Appendix not definitely identified. Scattered diverticula throughout the colon. Aorta is densely calcified but normal caliber No evidence of retroperitoneal or mesenteric adenopathy. Images through pelvis show evidence of hysterectomy. Pelvic structures are obscured by spray artifact from the left hip prosthesis. Subcutaneous tissues, abdominal wall, and muscular structures appear unremarkable. Degenerative spine changes. IMPRESSION: 1. Low-density mass in head of pancreas is again noted. This has been described previously. It is sub optimally evaluated on this unenhanced study. Recommend follow-up CT abdomen with contrast following pancreatic protocol 2. Cholelithiasis 3. No acute intra-abdominal process
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
[2018-12-26] MEDS ORDERED: Sodium Bicarbonate 75 MEQ in Sodium Chloride 0.45% 1,000 ML IV SCH (16:15)
[2018-12-26 16:33] LABS: Troponin I 0.044 ng/mL (< 0.028)
--- NOTE | 2018-12-26 16:58 | CON ---
DATE OF CONSULTATION: 12/26/2018 CONSULTING PHYSICIAN: Shelbie Oviedo MD REASON FOR CONSULTATION: HORTENCIA/elevated creatinine. HISTORY OF PRESENT ILLNESS: This is a 68-year-old female with known history of nonischemic cardiomyopathy, hypertension, pancreatic head mass, being evaluated in the outpatient, who presented to the hospital with intractable nausea and vomiting associated with frequent loose stools and inability to keep anything down, as well as generalized weakness and falls. The patient was recently hospitalized due to shortness of breath, thought to be acute on chronic heart failure, and was discharged on September 20 with creatinine of 2.1, which improved subsequently to 1.34 on October 08, 2018. She reported doing fairly well up until few days ago when she started having nausea and vomiting as well as poor oral intake and inability to keep anything down. She, however, reported taking her medications, which included lisinopril, hydrochlorothiazide as well as spironolactone. The patient is a poor historian and was unable to tell me any evaluation for the pancreatic mass. She denied hematemesis, hematochezia, dysuria, hematuria, and abdominal pain. She also denied fever, chest pain or leg swelling. She reportedly fell when she stood up concerning for orthostatic syncope. Review of medical records showed the patient has had frequent episodes of acute kidney injury, last being in recent hospitalization in September 2018. Prior to that, baseline creatinine seems to be 0.8 to 1, but the lowest in this year is 1.34. PAST MEDICAL HISTORY: 1. Seizure disorder. 2. Pancreatic head mass. 3. Hypertension. 4. CKD, stage 3. 5. Hypothyroidism. 6. Chronic alcohol abuse. 7. Chronic macrocytic anemia. PAST SURGICAL HISTORY: Right hip replacement. ALLERGIES: NO KNOWN DRUG ALLERGIES REPORTED. FAMILY HISTORY: Could not be obtained due to the patient's factor. SOCIAL HISTORY: The patient reportedly lives now with mom. CURRENT MEDICATIONS: 1. Ferrous sulfate 325 p.o. b.i.d. 2. Folic acid 1 mg p.o. daily. 3. Keppra 500 mg p.o. b.i.d. 4. Multivitamin one tablet p.o. daily. 5. Protonix 40 mg p.o. daily. 6. Sertraline 50 mg p.o. daily. 7. Spironolactone 25 mg p.o. daily. 8. Thiamine 100 mg p.o. daily. 9. Lisinopril/hydrochlorothiazide 20/12.5 one tablet p.o. daily. REVIEW OF SYSTEMS: Twelve-point review of systems performed was unremarkable other than pertinent positives and negatives included in the history of present illness. PHYSICAL EXAMINATION: VITAL SIGNS: Initial vitals showed BP of 121/81, pulse 99, respiratory rate 16, temperature 98.2, and pulse 97 on room air. Most current vitals are as follows; BP 138/78, pulse 85, respiratory rate 14, and SpO2 100 on room air. GENERAL: Cachectic female, in no obvious distress. The patient is fatigued. Afebrile, anicteric, acyanotic. HEENT: Marked facial wasting, but otherwise normocephalic and atraumatic. Pupils are reacting to light. Oral mucosa is moist. NECK: Supple with preserved range of motion. No obvious mass appreciated. CARDIOVASCULAR: Regular rhythm and rate with normal heart sounds 1 and 2. RESPIRATORY: Fair air entry bilaterally with no obvious crackle or rhonchi or use of accessory muscles. GI: Flat, soft, nontender, with normal bowel sounds. EXTREMITIES: Marked muscle wasting with no edema. Distal pulses are palpable. NEUROLOGIC: Conscious and alert, oriented x3, with appropriate mental status. Memory lapse is noticed. LABORATORY DATA: CBC showed WBC count of 2.7, hemoglobin of 7.7, MCV of 115, and platelet of 217. CMP showed sodium of 136, potassium of 4.9, chloride of 95, CO2 of 17, anion gap of 29, BUN of 71, creatinine of 2.29, glucose of 53, and calcium of 9.4. Total bilirubin of 0.4, AST of 16, ALT less than 7, alkaline phosphatase of 109, total protein of 6.3, albumin of 3.6, and globulin of 2.7. Magnesium is 1.4. Lipase is 21. BNP is 30.2. Initial troponin is 0.07. Urinalysis is pending at this time. DIAGNOSTIC DATA: EKG showed normal sinus rhythm with rate of 86. No obvious ST-segment or T-wave abnormalities appreciated. Chest x-ray showed no acute intrathoracic pathology. CT scan of the abdomen and pelvis with oral contrast showed low-density mass in the head of pancreas as well as cholelithiasis, but no acute intraabdominal process noted. ASSESSMENT: 1. Acute kidney injury superimposed on chronic kidney disease, stage 3: This most likely is due to hemodynamic factors related to volume depletion. The patient also is on lisinopril and hydrochlorothiazide as well as spironolactone. Dehydration, superimposed on vasoconstriction from ADRIANA inhibitor, most likely the etiologic pathogenesis. 2. Volume depletion/severe dehydration: From poor oral intake and increased gastrointestinal losses. 3. High anion gap metabolic acidosis: Due to chronic kidney disease plus gastrointestinal losses from both, diarrhea. 4. Presumed acute gastroenteritis given history of nausea, vomiting, and frequent loose stools. 5. Cachexia: This most likely is related to presumed adenocarcinoma of the pancreas. 6. Seizure disorder, on Keppra. PLAN: We will start bicarb containing infusion for treatment of dehydration, HORTENCIA, and metabolic acidosis. We will monitor closely given history of nonischemic cardiomyopathy to avoid fluid overload given that the patient is markedly cachectic. We will also get urine electrolytes and monitor renal function and electrolytes. Many thanks for involving us in the care of this patient. We will follow along with you. Further recommendation to follow depending on hospital course. Palliative Care consult will be appropriate. Job ID: [id number]
[2018-12-26] MEDS ORDERED: Magnesium 2 GM/50 ML 2 GM in Premix Bag 1 BAG IVPB SCH (17:00)
[2018-12-26] MEDS ORDERED: Artificial Tear Sol 15 ML BOT EA EYE PRN (17:45)
[2018-12-26] MEDS ORDERED: hydrALAZINE 20 MG/ML VIAL SLOW IVP PRN (17:45)
[2018-12-26] MEDS ORDERED: Cepastat Lozenges 1 LOZ PO PRN (17:45)
[2018-12-26] MEDS ORDERED: Bisacodyl 10 MG SUPP PR PRN (17:45)
[2018-12-26] MEDS ORDERED: Calcium Carbonate 500 MG ChewTAB PO PRN (17:45)
[2018-12-26] MEDS ORDERED: Metoclopramide HCl 10 MG/2 ML VIAL IVP PRN (17:45)
[2018-12-26] MEDS ORDERED: Senokot S 8.6-50 MG TAB PO PRN (17:45)
[2018-12-26] MEDS ORDERED: Acetaminophen 325 MG TAB PO PRN (17:45)
[2018-12-26] MEDS ORDERED: Ondansetron PF 4 MG/2 ML Vial IVP PRN (17:45)
[2018-12-26] MEDS ORDERED: Ondansetron ODT 4 MG TAB PO PRN (17:45)
[2018-12-26] MEDS ORDERED: Loperamide HCl 2 MG CAP PO PRN (17:45)
[2018-12-26] MEDS ORDERED: HYDROcodone/Acetaminophen 5/325 mg Tablet PO PRN (17:45)
[2018-12-26] MEDS ORDERED: Sodium Chloride 0.65% Nasal 44 ML BOT EA NARE PRN (17:45)
[2018-12-26] MEDS ORDERED: Eucerin (Mineral Oil/Petrolatum,White) 30 gm Jar TOP PRN (17:45)
[2018-12-26] MEDS ORDERED: Loratadine 10 MG TAB PO PRN (17:45)
[2018-12-26] MEDS ORDERED: Diabetic Tussin 200 MG/10 ML UDCUP PO PRN (17:45)
[2018-12-26] MEDS ORDERED: Sodium Chloride 0.9% (PF) 10 ML VIAL FS PRN (17:54)
[2018-12-26] MEDS ORDERED: Magnesium Sulfate 3 GM in Sodium Chloride 0.9% 100 ML IVPB SCH (18:30)
[2018-12-26 19:41] LABS: Troponin I 0.042 ng/mL (< 0.028)
[2018-12-26] MEDS: Pantoprazole 40 MG VIAL IVP SCH (20:26)
[2018-12-26] MEDS: levETIRAcetam 500 MG TAB PO SCH (20:26)
[2018-12-26 20:48] VITALS: BMI 16.0
[2018-12-26] MEDS: Multivitamins, Adult 10 ML in Dextrose 5 % And 0.9 % NaCl 1,000 ML IV SCH (20:52)
[2018-12-27] MEDS: Multivitamins, Adult 10 ML in Dextrose 5 % And 0.9 % NaCl 1,000 ML IV SCH (03:43)
[2018-12-27 07:36] LABS: ALT (SGPT) Less than 7 U/L (8-55); AST (SGOT) 27 U/L (5-34); Albumin 2.7 g/dL (3.4-4.8); Alkaline Phosphatase 88 U/L (40-150); Anion Gap 17 mmol/L (10-20); BUN (Urea Nitrogen) 60 mg/dL (9.8-20.1); Bilirubin, Total 0.2 mg/dL (0.2-1.2); Calc. Creatinine Clearance 19 mL/min (70-130); Carbon Dioxide 22 mmol/L (23-31); Chloride 102 mmol/L (98-107); Estimated GFR-MDRD 28; Globulin 1.9 g/dL (2.4-3.5); Glucose 89 mg/dL (80-115); Magnesium 2.1 mg/dL (1.6-2.6); Phosphorus 3.9 mg/dL (2.3-4.7); Potassium 4.5 mmol/L (3.5-5.1); Protein, Total 4.6 g/dL (6.0-8.3); Sodium 136 mmol/L (136-145)
[2018-12-27 07:39] LABS: Creatinine, Urine 60.56 mg/dL (47-110); Protein, Urine Random Quant Less than 10 mg/dL (1-14); Urea Nitrogen, Random Urine 347 mg/dl
[2018-12-27] MEDS: levETIRAcetam 500 MG TAB PO SCH (08:01)
[2018-12-27] MEDS: Pantoprazole 40 MG VIAL IVP SCH (08:01)
--- NOTE | 2018-12-27 11:00 | PDOC.PN ---
- Subjective Encounter Start Date: 12/27/18 Encounter Start Time: 09:50 -: old records requested/rev Patient seen and examined. No new complaints. No overnight events - Objective Resuscitation Status - Order Detail: 12/26/18 15:08 Resuscitation Status Routine Resuscitation Status: FULL: Full Resuscitation MAR Reviewed: Yes Vital Signs & Weight: Vital Signs (12 hours) Temp Pulse Resp BP BP BP Pulse Ox 12/27/18 07:52 97.6 F 86 16 100/65 97 12/27/18 04:00 98.3 F 92 16 96/61 94 L 12/27/18 00:03 98.0 F 90 16 99/63 94 L Weight Weight 99 lb 6.856 oz I&O: 12/26/18 12/27/18 12/28/18 06:59 06:59 06:59 Intake Total 900 800 Balance 900 800 Result Diagrams: 12/26/18 12:23 12/27/18 06:06 Additional Labs: Accuchecks 12/26/18 16:14 POC Glucose 61 L EKG Reviewed by me: Yes Phys Exam - Physical Examination Constitutional: NAD cachectic HEENT: PERRLA, sclera anicteric Neck: no JVD, supple Respiratory: no wheezing, no rales, no rhonchi Cardiovascular: RRR, no significant murmur, no rub Gastrointestinal: soft, non-tender, no distention, positive bowel sounds Musculoskeletal: no edema, pulses present Neurological: non-focal Lymphatic: no nodes Psychiatric: normal affect, A&O x 3 Skin: no rash Dx/Plan (1) Acute worsening of stage 3 chronic kidney disease Code(s): N18.3 - CHRONIC KIDNEY DISEASE, STAGE 3 (MODERATE) Status: Acute (2) Demand ischemia Code(s): I24.8 - OTHER FORMS OF ACUTE ISCHEMIC HEART DISEASE Status: Acute (3) High anion gap metabolic acidosis Code(s): E87.2 - ACIDOSIS Status: Resolved (4) Nausea & vomiting Code(s): R11.2 - NAUSEA WITH VOMITING, UNSPECIFIED Status: Resolved (5) Alcohol abuse Code(s): F10.10 - ALCOHOL ABUSE, UNCOMPLICATED Status: Chronic Comment: (6) CAD (coronary artery disease) Code(s): I25.10 - ATHSCL HEART DISEASE OF [place] CORONARY ARTERY W/O ANG PCTRS Status: Chronic (7) CKD (chronic kidney disease) stage 3, GFR 30-59 ml/min Code(s): N18.3 - CHRONIC KIDNEY DISEASE, STAGE 3 (MODERATE) Status: Chronic (8) Cholelithiases Code(s): K80.20 - CALCULUS OF GALLBLADDER W/O CHOLECYSTITIS W/O OBSTRUCTION Status: Chronic (9) H/O malignant neoplasm of breast Code(s): Z85.3 - PERSONAL HISTORY OF MALIGNANT NEOPLASM OF BREAST Status: Chronic (10) Hypertension Code(s): I10 - ESSENTIAL (PRIMARY) HYPERTENSION Status: Chronic Qualifiers: Comment: (11) Hypothyroidism Code(s): E03.9 - HYPOTHYROIDISM, UNSPECIFIED Status: Chronic Qualifiers: (12) Macrocytic anemia Code(s): D53.9 - NUTRITIONAL ANEMIA, UNSPECIFIED Status: Chronic Comment: (13) Pancreatic mass Status: Chronic (14) Protein-calorie malnutrition, severe Code(s): E43 - UNSPECIFIED SEVERE PROTEIN-CALORIE MALNUTRITION Status: Chronic (15) Seizure disorder Code(s): G40.909 - EPILEPSY, UNSP, NOT INTRACTABLE, WITHOUT STATUS EPILEPTICUS Status: Chronic Comment: (16) Tobacco abuse Code(s): Z72.0 - TOBACCO USE Status: Chronic (17) Vitamin D deficiency Code(s): E55.9 - VITAMIN D DEFICIENCY, UNSPECIFIED Status: Chronic - Plan cont current plan of care, continue antibiotics * continue IVF * she had GI evaluation last year, she needs EUS which we can not do in hospital but I advised to pt to follow up with GI to do this * based on her current nutritional status, doubt she will be candidate for cancer if any. * consulted palliative care * prognosis is poor due to her on going non compliance * now she is up to her base line Review of Systems - Review of Systems ENT: negative: Ear Pain, Ear Discharge, Nose Pain, Nose Discharge, Nose Congestion, Mouth Pain, Mouth Swelling, Throat Pain, Throat Swelling, Other Respiratory: negative: Cough, Dry, Shortness of Breath, Hemoptysis, SOB with Excertion, Pleuritic Pain, Sputum, Wheezing Cardiovascular: negative: chest pain, palpitations, orthopnea, paroxysmal nocturnal dyspnea, edema, light headedness, other Gastrointestinal: negative: Nausea, Vomiting, Abdominal Pain, Diarrhea, Constipation, Melena, Hematochezia, Other Genitourinary: negative: Dysuria, Frequency, Incontinence, Hematuria, Retention , Other Musculoskeletal: negative: Neck Pain, Shoulder Pain, Arm Pain, Back Pain, Hand Pain, Leg Pain, Foot Pain, Other - Medications/Allergies Allergies/Adverse Reactions: Allergies Allergy/AdvReac Type Severity Reaction Status Date / Time Gadolinium-Containing AdvReac Mild Emesis Verified 04/28/18 22:32 Contrast Medi Medications: Current Medications Acetaminophen (Tylenol) 650 mg PO Q4H PRN PRN Reason: Headache/Fever/Mild Pain (1-3) Last Admin: 12/26/18 18:00 Dose: 650 mg Hydrocodone Bitart/Acetaminophen ([place] 5/325) 1 tab PO Q4H PRN PRN Reason: Moderate Pain (4-6) Artificial Tears (Liquitears 15ml Bottle) 2 drop EA EYE PRN PRN PRN Reason: Dry Eyes Bisacodyl (Dulcolax) 10 mg ME DAILYPRN PRN PRN Reason: Constipation Calcium Carbonate (Tums) 1,000 mg PO Q4H PRN PRN Reason: Heartburn or Indigestion Guaifenesin (Robitussin Sf) 200 mg PO Q4H PRN PRN Reason: Cough Hydralazine HCl (Apresoline) 10 mg SLOW IVP Q4H PRN PRN Reason: SBP > 180 and HR < 70 Sodium Bicarbonate 75 meq/ (Sodium Chloride) 1,075 mls @ 100 mls/hr IV INF [facility] Last Admin: 12/26/18 17:50 Dose: 1,075 mls Multivitamins 10 ml/ Dextrose/ (Sodium Chloride) 1,010 mls @ 126.25 mls/hr IV 2000 [facility] Stop: 12/29/18 03:59 Levetiracetam (Keppra) 500 mg PO BID [facility] Last Admin: 12/27/18 08:01 Dose: 500 mg Loperamide HCl (Imodium) 2 mg PO PRN PRN PRN Reason: Diarrhea/Loose Stools Loratadine (Claritin) 10 mg PO DAILYPRN PRN PRN Reason: Sinus Symptoms Metoclopramide HCl (Reglan) 5 mg IVP Q4H PRN PRN Reason: Nausea Mineral Oil/White Petrolatum (Eucerin Cream) 0 gm TOP BIDPRN PRN PRN Reason: Dry Skin Ondansetron HCl (Zofran Odt) 4 mg PO Q6H PRN PRN Reason: Nausea/Vomiting Ondansetron HCl (Zofran) 4 mg IVP Q6H PRN PRN Reason: Nausea/Vomiting Pantoprazole Sodium (Protonix) 40 mg IVP Q12HR [facility] Last Admin: 12/27/18 08:01 Dose: 40 mg Senna/Docusate Sodium (Senokot S) 2 tab PO BID PRN PRN Reason: Constipation Sertraline HCl (Zoloft) 50 mg PO DAILY [facility] Last Admin: 12/27/18 08:01 Dose: 50 mg Sodium Chloride ([place] Nasal [place] 0.65%) 0 ml EA NARE QIDPRN PRN PRN Reason: Nasal Congestion Sodium Chloride (Normal Saline Pf) 10 ml FS PRN PRN PRN Reason: RECONSTITUTION Throat Lozenges (Cepastat Lozenges) 1 tati PO Q2H PRN PRN Reason: Sore Throat
--- NOTE | 2018-12-27 11:46 | PRG ---
DATE OF SERVICE: 12/27/2018 SUBJECTIVE: A 68-year-old female being followed up for elevated creatinine. The patient has history of nonischemic (alcohol-induced) cardiomyopathy, chronic alcohol abuse as well as hypertension, who was admitted due to intractable nausea and vomiting. The patient reported continued use of alcohol with last use being prior to hospitalization. She reports feeling better today. Nausea and vomiting have subsided. OBJECTIVE: VITAL SIGNS: Temperature 97.6, pulse 86, respiratory rate 16, SpO2 of 97% on room air, and blood pressure is 100/65. GENERAL: Cachectic, elderly female in no obvious distress. Afebrile. Anicteric. Acyanotic. HEENT: Normocephalic and atraumatic. Worsening of facial muscles noted. Oral mucosa is moist. Pupils are reacting to light. CARDIOVASCULAR: Regular rhythm and rate with normal heart sounds. RESPIRATORY: Good air entry bilaterally with some fine adventitious breath sounds. No obvious crackle, rhonchi, or use of accessory muscles appreciated. GI: Flat, soft, nontender, nondistended with normal bowel sounds. EXTREMITIES: Marked wasting of muscles noticed. No edema or erythema. NEUROLOGIC: Conscious and alert, oriented x3 with appropriate mental status. DIAGNOSTIC DATA: CMP today showed sodium 136, potassium 4.5, chloride 102, CO2 of 22, BUN 60, creatinine 2.1, glucose 89, calcium 8.0, phosphorus 3.9, magnesium 2.1, total bilirubin 0.2, AST 27, ALT less than 7, alkaline phosphatase 88, total protein 4.6, albumin 2.7, globulin 1.9. ASSESSMENT AND PLAN: 1. Acute kidney injury superimposed on chronic kidney disease stage 3. This is most likely due to volume depletion from poor oral intake and increased gastrointestinal losses. The patient also was on lisinopril and hydrochlorothiazide as well as spironolactone. Creatinine is trending downward with crystalloid. We will continue to hold antihypertensives including ADRIANA inhibitor while continuing IV fluids and monitor renal function. 2. High anion gap metabolic acidosis: This is due to chronic kidney disease with acute kidney injury as well as gastrointestinal losses from diarrhea and chronic alcohol abuse. This is improving with bicarb containing IV fluid. We will continue same and monitor electrolytes and acid-base. 3. Dehydration/volume depletion: From poor oral intake and increased gastrointestinal losses. 4. Severe protein calorie malnutrition/cachexia. The patient clearly is not eating, preferring to drink alcohol. Calorie intake is grossly abysmal. Also, pancreatic head mass concerning for adenocarcinoma may be contributory. 5. Seizure disorder, on Keppra. 6. 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 The patient is supposed to have endoscopic ultrasound with biopsy, but has not followed up. This need to be addressed if the patient really wants this evaluation or if she could prefer palliative care. With the patient's continued abuse of alcohol, next followup and compliance with medications are very difficult. Job ID: [id number]
--- NOTE | 2018-12-27 12:09 | DIS ---
DATE OF ADMISSION: 12/26/2018 DATE OF DISCHARGE: 12/27/2018 PRIMARY CARE PHYSICIAN: Celia Santiago MD. DISCHARGE DISPOSITION: Home. PRIMARY DISCHARGE DIAGNOSIS: Acute on chronic kidney failure, baseline chronic kidney disease stage 3, dehydration, anion gap metabolic acidosis, nausea and vomiting. SECONDARY DISCHARGE DIAGNOSES: Vitamin D deficiency, tobacco abuse disorder, seizure disorder, severe protein calorie malnutrition, pancreatic cystic lesion, macrocytic anemia, hypothyroidism, hypertension, coronary artery disease, history of breast cancer, chronic kidney disease stage 3, cholelithiasis, coronary artery disease, alcoholism, tobacco abuse disorder. PRIMARY PROCEDURE/OPERATION: None. RADIOLOGICAL INVESTIGATION: CT abdomen and pelvis showed similar stable finding on pancreas. Chest x-ray was unremarkable. SIGNIFICANT LABORATORY DATA: Hemoglobin 7.7. Creatinine 2.12. Troponin 0.042. DISCHARGE MEDICATIONS: 1. Keppra 500 mg p.o. b.i.d. 2. Protonix 40 mg p.o. daily. 3. Zoloft 50 mg p.o. daily. 4. Ferrous sulfate 325 mg p.o. b.i.d. 5. Folic acid 1 mg p.o. daily. 6. Vitamin B12 1000 mcg p.o. daily. 7. Thiamine 100 mg p.o. daily. 8. Multivitamin one tablet p.o. daily. CONTRAINDICATION: None. CODE STATUS: Full code. INPATIENT DANCE STUDIO MANAGER: Dr. Buitrago was following while in hospital. TEST RESULT PENDING ON DISCHARGE: None. ALLERGIES: GADOLINIUM CONTRAST. DISCHARGE PLAN: Posthospital, the patient is strongly advised to follow up with filler shaker, Dr. Jamshid Matias; Dr. Buitrago; and primary care physician. HOSPITAL COURSE: A 68-year-old female, who is extremely noncompliant with her treatment. She has ongoing tobacco and alcohol abuse and she has no followup with primary care doctor. She drank alcohol, and subsequently, she was having nausea and vomiting and that is why, she was brought to ER by mother. She was extremely dehydrated when she arrived to ER. She was having anion gap metabolic acidosis and she had elevated creatinine. During this admission, we hydrated her with IV fluid. We also gave her bicarbonate and her renal function is approaching towards normal. This patient also has stable finding on pancreas, which is suspected for her pancreatic cystic lesion and she needs endoscopic ultrasound. Senior Electrical Controls Engineer has been evaluated during previous admission in late 2018, but she has no followup since then. I have discussed with the patient and mother about going to filler shaker for outpatient endoscopic ultrasound followup. We are unfortunately unable to do endoscopic ultrasound in our hospital and this patient does not need to be transferred for that reason only. I advised her to follow up with primary care physician and filler shaker for that reason, even though, this patient had extreme cachexia and she is doubtfully any candidate for any further treatment. This patient has ongoing tobacco and alcohol abuse disorder that is why we provided necessary patient counseling to avoid tobacco and alcohol abuse. Healthy lifestyle discussed with the patient. Nutritional education given. Overall, this patient is stable for discharge later on today after adequate hydration. Now, she is able to tolerate p.o. well. Job ID: [id number]
[2018-12-27 15:58] LABS: Anisocytosis SLIGHT = 6-15 cells (100X) (0-5/hpf); Band 16 % (5-11); Basophilic Stippling SLIGHT = 1-2 cells (100X) (None Seen); Hemoglobin 6.3 g/dL (12.0-16.0); Lymphocytes 10 % (21-51); MDiff Complete? YES; Macrocytosis SLIGHT = 6-15 cells (100X) (0-5/hpf); Mean Corpuscular HGB CONC 33.6 g/dL (32.0-36.0); Mean Corpuscular Hemoglobin 39.3 pg (27.0-31.0); Mean Platelet Volume 7.5 fL (7.4-10.4); Monocytes 8 % (0-10); Neutrophil 66 % (42-75); Platelet Count 166 thou/uL (130-400); Platelet Morphology Comment Appears Adequate; Polychromasia SLIGHT = 2-3 cells (100X) (0-2/hpf); RBC Distribution Width 14.1 % (11.5-14.5); Red Blood Cell (RBC) Count 1.61 mill/uL (4.20-5.40); White Blood Cell (WBC) Count 1.8 thou/uL (4.8-10.8)
[2018-12-27 16:13] VITALS: BP 105/70; TEMP 97.8
[2018-12-27] MEDS ORDERED: Multivitamins, Adult 10 ML in Dextrose 5 % And 0.9 % NaCl 1,000 ML IV SCH (20:00)
== END 2018-12-27 17:36 | disposition home or self-care (01) ==
LOC: ERS 11:31 → ERHOLD 15:23 → T4-B 17:43
PROVIDERS: ADMIT Internal Medicine; ATTEND Internal Medicine
DX: K29.20 Alcoholic gastritis without bleeding (principal); I12.9 Hypertensive chronic kidney disease with stage 1 through stage 4 chronic kidney disease, or unspecified chronic kidney disease; N18.9 Chronic kidney disease, unspecified; N17.9 Acute kidney failure, unspecified; E43 Unspecified severe protein-calorie malnutrition; D53.9 Nutritional anemia, unspecified; E03.9 Hypothyroidism, unspecified; I25.10 Atherosclerotic heart disease of native coronary artery without angina pectoris; F17.290 Nicotine dependence, other tobacco product, uncomplicated; Z68.1 Body mass index [BMI] 19.9 or less, adult; Z79.899 Other long term (current) drug therapy; Z91.041 Radiographic dye allergy status; Z91.19 Patient's noncompliance with other medical treatment and regimen
CPT/HCPCS: 71045; 74176; 80053 ×2; 82550; 82570; 82962; 83690; 83735 ×2; 83880; 84100; 84156; 84484 ×2; 84540; 85025 ×2; 93005; 96361; 96365; 96366 ×2; 96367; 96375 ×2; 96376; 97116; 97139; 99285; 99406; G0378 ×2; 36415; 36416; 96374; C9113; J2405; J3475; J3490; J7042

== ENCOUNTER 2019-05-26 19:34 | Inpatient (IN) | payer MEDICARE ==
[2019-05-26] MEDS ORDERED: Acetaminophen 325 MG Suppository ONE (19:58)
[2019-05-26] MEDS ORDERED: Acetaminophen 1,000 MG in Premix Bag 1 BAG IVPB SCH (20:00)
[2019-05-26] MEDS ORDERED: Piperacillin/Tazobactam 3.375 GM VIAL ONE (20:03)
[2019-05-26 20:06] LABS: Actual Bicarbonate (HCO3a) 23.7 mEq/L (22-28); Analyzer IN Cardio ER; Base Excess (BEa) 0.6 mEq/L (-2.0 to +3.0); CO2 Tension 30.9 mmHg (35.0-45.0); Carboxyhemoglobin (COHb) 0.6 gm% (0.0-3.0); Hemoglobin (Hb) 6.5 g/dL (12.0-16.0); O2 Tension (PaO2) 94.2 mmHg (> 80.0); Potassium - ABG Lab 4.28 mmol/L (3.70-5.30)
[2019-05-26 20:16] LABS: Bilirubin 1+ (Negative); Blood, Urine Negative (Negative); Clarity Clear (Clear); Glucose, Urine (Dipstick) Normal (Negative); Leukocyte Negative Leu/uL (Negative); Nitrite Negative (Negative); Protein, Urine (Dipstick) Negative (Neg-Trace)
[2019-05-26] MEDS ORDERED: Lorazepam 2 MG/ML VIAL ONE (20:19)
[2019-05-26 20:24] LABS: ALV-art Gradient 123.855 (0-20); Puncture Site LBA
--- NOTE | 2019-05-26 20:31 | RAD ---
XR Chest 1 View Portable History: Altered mental status Comparison: Radiograph December 26, 2018 Findings: Abnormal left basilar opacity with small left effusion. There are also a lingular opacities . Abnormal left hilar density. No pneumothorax. Right lung relatively clear. Impression: Abnormal left hilar density concerning for mass with consolidation in the left lower lobe and lingula may reflect postobstructive pneumonitis versus multifocal pneumonia. Nonemergent follow-up CT of the chest is recommended.
[2019-05-26 20:38] LABS: #Lymphocytes 0.1 thou/uL (1.20-3.40); #Monocytes 0.1 thou/uL (0.11-0.59); #Neutrophils 0.7 thou/uL (1.40-6.50); %Eosinophils 0.8 % (0.0-10.0); %Lymphocytes 13.5 % (21.0-51.0); %Monocytes 12.4 % (0.0-10.0); %Neutrophils 73.3 % (42.0-75.0); Hemoglobin 6.3 g/dL (12.0-16.0); Mean Corpuscular HGB CONC 33.6 g/dL (32.0-36.0); Mean Corpuscular Hemoglobin 40.7 pg (27.0-31.0); Mean Platelet Volume 7.4 fL (7.4-10.4); Platelet Count 129 thou/uL (130-400); RBC Distribution Width 14.1 % (11.5-14.5); Red Blood Cell (RBC) Count 1.56 mill/uL (4.20-5.40)
[2019-05-26] MEDS ORDERED: Norepinephrine 8 MG in Dextrose 5% in Water 242 ML IVPB PRN (20:48)
[2019-05-26 20:52] LABS: ALT (SGPT) 10 U/L (8-55); AST (SGOT) 31 U/L (5-34); Albumin 3.5 g/dL (3.4-4.8); Alkaline Phosphatase 91 U/L (40-110); Anion Gap 18 mmol/L (10-20); BUN (Urea Nitrogen) 23 mg/dL (9.8-20.1); Bilirubin, Total 0.7 mg/dL (0.2-1.2); CK (CPK) 57 U/L (29-168); Calc. Creatinine Clearance 0 mL/min (70-130); Calcium 9.2 mg/dL (7.8-10.44); Carbon Dioxide 28 mmol/L (23-31); Chloride 98 mmol/L (98-107); Estimated GFR-MDRD 30; Globulin 2.8 g/dL (2.4-3.5); Glucose 136 mg/dL (80-115); Lipase 46 U/L (8-78); Potassium 4.4 mmol/L (3.5-5.1); Protein, Total 6.3 g/dL (6.0-8.3); Sodium 140 mmol/L (136-145)
[2019-05-26 21:09] LABS: T4 5.3 ug/dL (4.87-11.72); Thyroid Stimulating Hormone 1.2126 uIU/mL (0.35-4.94)
--- NOTE | 2019-05-26 21:48 | CT ---
CT Abdomen Pelvis W Con History: Infection. Sepsis after endoscopy. Comparison: CT abdomen and pelvis December 26, 2018. Findings:Left lower lobe collapse. There are centrilobular opacities within the lingula. Leftward med iastinal shift. Diffuse hepatic steatosis. Exam is limited due to motion and the patient's arms being over the abdome n and pelvis. Dense vascular calcifications of the aorta. Pancreatic head mass is limited due to the extensive onesimo on artifact from patient's arm. Calcific and soft plaque superior mesenteric artery crosses 50-75% narrowing. No hydronephrosis. Adrenal glands unremarkable. No retroperitoneal fluid collection. Large superior endplate Schmorl's node at L2. Compression fracture at T9. There is a abnormal calcification of the cord at the level of T9/T10 interspace. Impression: 1. New from the MRI 2017 examination is a compression fracture at T9 with approximately 20% height lo ss. 2. Similar appearance of the T8-T9 interspace calcified mass of the cord. 3. Lingular consolidation as well as left lower lobe collapse could be from recent intubation given t he patient history as well as aspiration pneumonia. 4. Poorly visualized pancreatic mass into motion and the patient's arms overlying the abdomen and pel vis. No peripancreatic gas or fluid collection. 5. 50-75% narrowing of the proximal superior mesenteric artery due to calcific and soft plaque.
[2019-05-26 21:59] LABS: Fibrinogen 348 mg/dL (253-463)
[2019-05-26 22:00] LABS: INR-International Normal Ratio 1.1; PTT 36.7 SEC (22.9-36.1); Prothrombin Time 13.8 SEC (12.0-14.7)
[2019-05-26 22:01] LABS: D-Dimer Test 3.84 *mcg/mL (0.27-0.43)
[2019-05-26] MEDS ORDERED: Magnesium 2 GM/50 ML BAG (IN WATER) ONE (22:15)
[2019-05-26 22:22] LABS: FSP-Qualitative ABNORMAL (Normal); FSP-Semiquantitative >=5 & <20 mcg/mL (Less than 5)
[2019-05-26] MEDS ORDERED: Acetaminophen 325 MG TAB PO PRN (22:52)
[2019-05-26] MEDS ORDERED: Ondansetron ODT 4 MG TAB PO PRN (22:52)
[2019-05-26] MEDS ORDERED: Acetaminophen 650 MG Suppository PR PRN (22:52)
[2019-05-26] MEDS ORDERED: Ondansetron PF 4 MG/2 ML Vial IVP PRN (22:52)
[2019-05-27 00:27] LABS: Lactic Acid 1.4 mmol/L (0.5-2.2)
[2019-05-27 00:30] LABS: Alcohol Less than 10 mg/dL (Less than 10); Salicylate Less than 8.0 mg/dL (15.0-30.0)
[2019-05-27 00:32] LABS: Amphetamine Not Detected (NotDetected); Barbiturates Screen Not Detected (NotDetected); Benzodiazepine Screen Not Detected (NotDetected); Cocaine Metabolite Screen Not Detected (NotDetected); Medtox Control Line Valid? VALID (VALID); Medtox Reader # READER 4; Methadone Not Detected (NotDetected); Methamphetamine Not Detected (NotDetected); Opiate Screen Not Detected (NotDetected); Oxycodone Screen Not Detected (NotDetected); Phencyclidine (PCP) Not Detected (NotDetected); THC/Cannabinoid Screen Not Detected (NotDetected); Tricyclic Screen Not Detected (NotDetected)
[2019-05-27] MEDS ORDERED: Magnesium 2 GM/50 ML 2 GM in Premix Bag 1 BAG IVPB SCH (02:15)
--- NOTE | 2019-05-27 03:15 | HP ---
PRIMARY CARE PHYSICIAN: Celia Santiago MD CODE STATUS: Full code. TIME OF EVALUATION: 11:00 p.m. CHIEF COMPLAINT: Change in mental status. HISTORY OF PRESENT ILLNESS: This is a 68-year-old female patient with past medical history of anemia, hypertension, seizures, liver disease, cardiomyopathy. The patient also has recently diagnosed pancreatic cancer. Reportedly, the patient undergone for the pancreatic cancer a lung biopsy through endoscopic ultrasound today and is quite wide. The patient was normal before and after the procedures. The patient after she got home, started developing altered mental status, presented to the hospital with temperature of 100.5. She was found to have a pneumonia that seems to be aspiration pneumonia. Symptoms are severe. History has been gathered from the ER staff since the patient is nonverbal, also to deep stimulation during my examination. REVIEW OF SYSTEMS: Unable to obtain since the patient is noncooperative, only arousable to pain. PAST SURGICAL HISTORY: Orthopedic surgery, left hip replacement. PSYCHIATRIC HISTORY: No previous psychiatric history. SOCIAL HISTORY: The patient drinks everyday less than 5 drinks per day. Smokes cigarettes, half a pack per day. KNOWN ALLERGIES: Gadolinium. FAMILY HISTORY: Reviewed, noncontributory for current presentation. CURRENT MEDICATIONS: 1. Carbamazepine. 2. Pantoprazole. 3. B complex. 4. Vitamin B12. 5. Sertraline. 6. Iron. 7. Vitamin B1. 8. Spironolactone. 9. Lisinopril. 10. Hydrochlorothiazide. 11. Keppra. PHYSICAL EXAMINATION: VITAL SIGNS: On presentation, heart rate 172, respiratory rate was 30, blood pressure was 155/96. Blood pressure has been fluctuating with systolic going down to the 80s and by the time of my examination, this has recovered after initial approach including hydration, fever has also been resolved. GENERAL APPEARANCE: The patient is lethargic, arousal to pain, not able to communicate, cachectic. HEENT: Eyes, normal conjunctivae. Moist oral mucosa. Anicteric. No JVD. RESPIRATORY: Bilateral air entry. Scattered rales and wheezing. Symmetric expansion. CARDIOVASCULAR: The patient is tachycardic, normotensive. No murmurs. No gallop. No leg edema. ABDOMEN: Soft, normal bowel sounds. MUSCULOSKELETAL: Baseline range of motion and strength. SKIN: Warm, intact. No pallor. No rash. No redness. Capillary refill seems to be intact. NEUROLOGIC: No evidence of any new focal weakness. Cranial nerves seems to be intact. PSYCHIATRIC: The patient does have a change in mentation. Unable to explore due to change in mental status. IMAGING DATA: EKG was reviewed. The patient has sinus tachycardia at the rate of 136, QT corrected 499. The prior EKG show SVT at the rate of 170. Radiology, the patient has patchy opacities in the right middle lobe. LABORATORY DATA: Labs were reviewed. The patient has a white count of 1.0, hemoglobin 6.3, MCV 121, platelet count 129. Coagulation; PT 13.8, INR 1.1, PTT 36.7, fibrinogen 349, fibrin degradation products are normally high and D-dimer 3.84. Blood gas was done, pH 7.5 with pCO2 30.9 and PO2 of 94. Chemistry; sodium 140, potassium 4.4, anion gap 18, BUN 23, creatinine 2.03, GFR 30, glucose 136. Lactic acid 4.7, the second one is 1.4, calcium 9.2, magnesium 1.0. LFTs were negative. Troponin was negative. TSH 1.2. Blood bank test, type, O positive. Antibody screen negative. MRI 2017 examination, compression fracture at T9 with approximately 20% height loss, similar appearance of T8-T9, appearance calcified , lingular consolidation as well as left lower lobe collapse, could be from recent intubation given the patient's history as well as aspiration pneumonia for visualized pancreatic mass into motion of the patient's arms overlying the abdomen and pelvis. No peripancreatic gas or fluid collection, 50% to 75% narrowing of the proximal superior mesenteric artery due to calcific plaque. Chest x-ray was done. The patient has normal epithelial density concerning for mass with consolidation in the left lower lobe and lingula, may reflect postobstructive pneumonitis versus multifocal pneumonia, nonemergent followup CT of the chest is recommended. ASSESSMENT AND PLAN: The patient will be placed in the hospital with following medical problems: 1. Possible postobstructive pneumonia related to perihilar mass as seen on the chest x-ray or possibly pneumonia secondary to recent intubation. The patient is started on broad-spectrum antibiotics. We will continue for now. We will follow cultures. We will adjust treatment as per sensitivity. 2. Sepsis. The patient presented with tachycardia, hypotension, fever 105. By the time of my examination, the symptoms have improved. The source is pneumonia. Continue antibiotics. Continue hydration. Second lactic acid has improved. We will monitor and treat accordingly. 3. Acute encephalopathy, likely secondary to sepsis. The patient has significant change in mental status after procedure today. She is arousable, but not communicative before the procedure. We will continue treatment. She presented with very high fever, could be related to sepsis. We will do CT head given the possibility for metastasis. 4. Pancytopenia. Reportedly, the patient has some history of some hematologic disorder, might need hematology evaluation for assistance with the patient. The patient received 2 PRBCs, broad-spectrum antibiotics given the low white count. 5. Respiratory alkalosis with pH 7.15 and pCO2 30.9, likely secondary to underlying pneumonia. We will treat underlying condition. 6. Uncontrolled diabetes, reconcile home medications. The patient has sliding scale for optimal control. 7. Acute kidney injury. The patient has a creatinine of 2.03. The previous creatinine was 1.67, so this is acute on chronic. We will hydrate. We will monitor kidney function. If not improving, might need Nephrology evaluation. 8. Lactic acidosis, has been corrected initially was 4.7, now 1.4. This is likely secondary to underlying sepsis. We will treat underlying condition. 9. Hypomagnesemia, 1.0. We will replace electrolytes as needed. 10. Deep venous thrombosis prophylaxis. Job ID: [id number] MTDD
[2019-05-27 03:28] LABS: Anion Gap 17 mmol/L (10-20); BUN (Urea Nitrogen) 21 mg/dL (9.8-20.1); Calc. Creatinine Clearance 22 mL/min (70-130); Calcium 7.9 mg/dL (7.8-10.44); Carbon Dioxide 23 mmol/L (23-31); Chloride 103 mmol/L (98-107); Estimated GFR-MDRD 34; Glucose 125 mg/dL (80-115); Sodium 139 mmol/L (136-145)
[2019-05-27 03:52] LABS: Anisocytosis SLIGHT = 6-15 cells (100X) (0-5/hpf); Band 33 % (5-11); Hemoglobin 7.6 g/dL (12.0-16.0); Hypochromia SLIGHT = 6-15 cells (100X) (0-5/hpf); Lymphocytes 7 % (21-51); MDiff Complete? YES; Macrocytosis SLIGHT = 6-15 cells (100X) (0-5/hpf); Mean Corpuscular Hemoglobin 36.4 pg (27.0-31.0); Mean Platelet Volume 7.3 fL (7.4-10.4); Metamyelocyte 4 % (0-0); Monocytes 17 % (0-10); Myelocyte 1 % (0-0); Neutrophil 38 % (42-75); Nucleated RBC 1 % (0); Platelet Count 86 thou/uL (130-400); Platelet Morphology Comment Appears Adequate; Polychromasia SLIGHT = 2-3 cells (100X) (0-2/hpf); RBC Distribution Width 20.1 % (11.5-14.5); Red Blood Cell (RBC) Count 2.08 mill/uL (4.20-5.40); White Blood Cell (WBC) Count 2.2 thou/uL (4.8-10.8)
[2019-05-27] MEDS ORDERED: Piperacillin/Tazobactam 4.5 GM in Sodium Chloride 0.9% 100 ML IVPB SCH (04:00)
[2019-05-27] MEDS: Sodium Chloride 0.9% 1,000 ML IV SCH ×2 (04:42→15:23)
--- NOTE | 2019-05-27 07:48 | CT ---
PRELIMINARY REPORT/[facility]/EMERGENCY AFTER HOURS PROCEDURE: PROCEDURE INFORMATION: Exam: CT Head Without Contrast Exam date and time: 05/27/2019 5:08 AM Clinical history: 68 years old, female; Altered mental status/memory loss; Patient HX: F68 reports to ED via EMS C/O AMS. PT had endoscopy this morning for pancreatic biopsy for pancreatic cancer TECHNIQUE: Imaging protocol: Computed tomography of the head without contrast. COMPARISON: No relevant prior studies available. FINDINGS: Brain: No hemorrhage. Small mesial right parietal and occipital encephalomalacia. Dural based left te mporal 1.9 x 11 mm homogeneous soft tissue density nodule is indeterminate, compatible with a meningi misti. A coarse perivantricular calcification is along the left lateral ventricle, in close proximity t o the temporal horn. Patchy whitte matter hypodensities are nonspecific but may be seen in small vess el chronic ischemic changes. No midline shift. Ventricles: No ventriculomegaly. Bones/joints: No acute fracture. Sinuses: Visualized sinuses are unremarkable. No fluid levels. Mastoid air cells: Visualized mastoid air cells are well aerated. Soft tissues: Unremarkable. IMPRESSION: No acute intracranial abnormality. Thank you for allowing us to participate in the care of your patient. Dictated and Authenticated by: Jeannie Estrada MD 05/27/2019 5:30 AM Central Time ([place] & [place]) FINAL REPORT HEAD CT WITHOUT CONTRAST: Date: 05/27/19 COMPARISON: 09/17/18. HISTORY: Evaluate for intracranial metastasis. FINDINGS: Stable extra-axial mass along the left temporal convexity with mild mass effect upon the adjacent cer ebrum. Brain volume is age-appropriate. Cortical dickens-white matter differentiation preserved. No evid ence of hydrocephalus. White matter hypodensities due to chronic small vessel ischemic changes are no nannette. Stable calcification in the occipital horn of the left lateral ventricle. Calvarium is intact. A dequate aeration of the sinuses and mastoid air cells. IMPRESSION: This report is in agreement with the preliminary report by [facility]. No acute intracranial process. POS: [facility]
[2019-05-27] MEDS: Enoxaparin Sodium 30 MG/0.3 ML SYRINGE SC SCH (08:26)
[2019-05-27] MEDS ORDERED: FLU VACC TS2019-20(65YR UP)/PF 180 MCG/0.5 ML SYRINGE IM ONE (09:00)
[2019-05-27] MEDS ORDERED: levETIRAcetam 500 MG TAB PO SCH (09:00)
[2019-05-27] MEDS ORDERED: Prevnar 13-Val Conj/PF 0.5 ML SYRINGE IM ONE (09:00)
--- NOTE | 2019-05-27 09:33 | PDOC.HOSPP ---
- Subjective Encounter Date: 05/27/19 Encounter Time: 09:31 Subjective: Ms. Oconnell was seen today in follow-up of altered mental status, and possible aspiration pneumonia. She is somnolent, but will awake some. She is a bit confused. She answers questions, but I am not sure they responses are reliable. - Objective Vital Signs & Weight: Vital Signs (12 hours) Temp Pulse Ox 05/27/19 08:00 98 F 05/27/19 07:49 100 05/27/19 04:00 97.7 F 05/27/19 02:00 100 Weight Weight 100 lb 4.965 oz Most Recent Monitor Data Heart Rate from ECG 88 NIBP 121/80 NIBP BP-Mean 93 Respiration from ECG 15 SpO2 100 I&O: 05/26/19 05/27/19 05/28/19 06:59 06:59 06:59 Intake Total 376 Output Total 140 75 Balance 236 -75 Result Diagrams: 05/27/19 02:53 05/27/19 02:53 Additional Labs: Accuchecks 05/26/19 20:12 POC Glucose 153 H Hospitalist ROS - Medication Medications: Active Medications Generic Name Dose Route Start Last Admin Trade Name Freq PRN Reason Stop Dose Admin Enoxaparin Sodium 30 mg 05/27/19 09:00 05/27/19 08:26 Lovenox SC Not Given 0900 ESTHER Piperacillin Sod/Tazobactam 100 mls @ 200 mls/hr 05/27/19 04:00 05/27/19 03: 35 Sod 4.5 gm/ Sodium Chloride IVPB 100 mls 0400,1200,2000 ESTHER Administration Sodium Chloride 1,000 mls @ 100 mls/hr 05/27/19 04:30 05/27/19 04:42 Normal Saline 0.9% IV 1,000 mls .Q10H ESTHER Administration - Exam Eye: PERRL, anicteric sclera Heart: RRR, no murmur, no gallops, no rubs, normal peripheral pulses Respiratory: CTAB, no wheezes, no rales, no ronchi, normal chest expansion, no tachypnea, normal percussion Gastrointestinal: soft, non-tender, non-distended, normal bowel sounds, no palpable masses, no hepatomegaly, no splenomegaly, no bruit Extremities: no cyanosis, no clubbing, no edema Hosp A/P (1) Metabolic encephalopathy Code(s): G93.41 - METABOLIC ENCEPHALOPATHY Status: Acute (2) Aspiration pneumonia Code(s): J69.0 - PNEUMONITIS DUE TO INHALATION OF FOOD AND VOMIT Status: Acute (3) Pancytopenia Code(s): D61.818 - OTHER PANCYTOPENIA Status: Acute (4) Pancreatic cancer Status: Acute (5) Acute worsening of stage 3 chronic kidney disease Code(s): N18.3 - CHRONIC KIDNEY DISEASE, STAGE 3 (MODERATE) Status: Acute (6) Hypertension Code(s): I10 - ESSENTIAL (PRIMARY) HYPERTENSION Status: Chronic Qualifiers: (7) Hypothyroidism Code(s): E03.9 - HYPOTHYROIDISM, UNSPECIFIED Status: Chronic Qualifiers: (8) Severe protein-energy malnutrition Code(s): E43 - UNSPECIFIED SEVERE PROTEIN-CALORIE MALNUTRITION Status: Acute - Plan * Metabolic encephalopathy- ? etiology- may be due to aspiration pneumonia * Pancreatic cancer- patient apparently just had an endoscopic ultrasound with biopsy of the pancreas yesterday at [facility]- will need to await the pathology result. Will consult Oncology. However, whatever the biopsy findings, she appears extremely chronically ill, with severe protein calorie malnutrition. Her prognosis is guarded either with or without treatment. Will also consult palliative care * HTN- blood pressure is stable * Aspiration pneumonia- will continue Zosyn, and consult speech for a swallow evaluation * Acute on chronic kidney injury- improved * Hypothyroidism- her TFT's are within normal range
--- NOTE | 2019-05-27 10:16 | CON ---
DATE OF CONSULTATION: HISTORY OF PRESENT ILLNESS: Dena Oconnell is a 68-year-old cachectic female, who apparently had a pancreatic biopsy done at [facility]. She was found at home unresponsive, acute mental status change, and brought to the hospital at [facility]. In the ICU, she was hypertensive, given 2 units of blood. Imaging studies show multiple abnormalities. In the ICU, she is awake, responsive, looks chronically ill, and cachectic. PAST MEDICAL HISTORY: Pancreatic mass, cardiomyopathy, unknown liver disease, history of seizure disorders, hypertension. PAST SURGICAL HISTORY: Including hysterectomy, hip surgery, recent endoscopy. SOCIAL HISTORY: Still ongoing tobacco, alcohol abuse apparently from the previous history. ALLERGIES: MULTIPLE OUTLINED INCLUDING GADOLINIUM. HOME MEDICATIONS: Include: 1. Keppra 500. 2. . 3. Thiamine. 4. Spironolactone 25. 5. Zoloft 50. 6. Protonix. 7. Lisinopril. 8. B12. She is now on: 1. Vancomycin. 2. Zosyn. REVIEW OF SYSTEMS: Difficult to obtain. She has foul smelling odor, cachectic. PHYSICAL EXAMINATION: VITAL SIGNS: Blood pressure is 122/84, pulse 94, saturations 100%, respirations 18. CHEST: Bilateral rhonchi, crackles. CARDIAC: Normal S1 and S2. No gallop. ABDOMEN: No masses. LABORATORY DATA: H and H are 7 and 21, platelet count is 86, white count 2.2, bands 33. Creatinine is 1.79. Thyroid function is normal. She had a CT brain done last night, which shows some kind of lesion in temporal area. X-ray shows a left-sided infiltrate. CT abdomen shows left lower lung atelectatic changes and pancreatic mass. ASSESSMENT: 1. Pancreatic mass. 2. Cachexia. 3. Status post biopsy. 4. Anemia. 5. Alcohol and tobacco abuse. 6. Left lung pneumonia with atelectatic changes. PLAN: Awaiting family to arrive to make additional decision. I would continue antibiotics, neb treatments, supportive care. We will follow. This is a 45-minute critical time. Job ID: [id number]
[2019-05-27] MEDS: Piperacillin/Tazobactam 3.375 GM in Sodium Chloride 0.9% 100 ML IVPB SCH ×3 (13:21→20:59)
--- NOTE | 2019-05-27 16:56 | PDOC.PALCO ---
Palliative Care Consult - Consult Details Requesting Physician: Dr Diaz Reason for Consult: goals of care Family Members Present: none - Pertinent HPI 68 year old female with the past medical history of anemia, hypertension, seizures, liver disease, cardiomyopahty. Patient was recently diagnosed with pancreatic cancer, and had undergone a lung biopsy. Reportedly patient was at her baseline prior to and after the endoscopic ultrasound for the lung biopsy but developed altered mental status, and fever after returning home. Upon presentation to the emergency room at [facility] she was evaluated and found to have possible aspiration pneumonia. Admitted to [facility] for further management. - Pertinent PMH Unable to confirm but possible anemia, hypertension, seizures, liver disease, cardiomyopathy, pancreatic cancer - Social History Smoking Status: Current every day smoker Smoking: cigarettes Alcohol Use: daily Drug Use History: none Living Situation: other (Lives with her mother and brother) - Medications MAR Reviewed: Yes - Allergies Allergies/Adverse Reactions: Allergies Allergy/AdvReac Type Severity Reaction Status Date / Time Gadolinium-Containing AdvReac Mild Emesis Verified 04/28/18 22:32 Contrast Medi - Subjective Sleeping but arousable. Aware that she is in the hospital but did not know where. Could not recall recent events. ROS: Dry mucous membranes, abdominal tenderness, "achey" otherwise 10 point review negative - Objective Vital Signs: Vital Signs - Most Recent Temp Pulse Resp BP Pulse Ox 98.9 F 87 16 100 05/27/19 16:00 05/27/19 13:13 05/27/19 13:13 05/27/19 07:49 Palliative Performance Scale: 40 - Physical Exam Constitutional: confusion HEENT: moist MMs, EOMI Deviation from normal: icteric Respiratory: clear to auscultation bilateral, unlabored breathing Deviation from normal: diminished to bases Cardiovascular: RRR, no significant murmur Gastrointestinal: soft, positive bowel sounds Deviation from normal: tender to upper quad with mild palpation Musculoskeletal: no edema, pulses present Neurological: moves all 4 limbs Deviation from normal: flat affect, confused Skin: normal turgor, cap refill <2 seconds - Problem List (1) Palliative care encounter Code(s): Z51.5 - ENCOUNTER FOR PALLIATIVE CARE Current Visit: Yes Status: Acute (2) Aspiration pneumonia Code(s): J69.0 - PNEUMONITIS DUE TO INHALATION OF FOOD AND VOMIT Current Visit : Yes Status: Acute (3) Metabolic encephalopathy Code(s): G93.41 - METABOLIC ENCEPHALOPATHY Current Visit: Yes Status: Acute (4) Pancreatic mass Current Visit: No Status: Chronic (5) Protein-calorie malnutrition, severe Code(s): E43 - UNSPECIFIED SEVERE PROTEIN-CALORIE MALNUTRITION Current Visit: No Status: Chronic - Plan/Recommendations Plan:Initial visit with patient to introduce palliative care. Patient states she lives with her mother and brother, will reach out to family to identify resources and support. *Await path report and recc from oncology to identify specific goals of care *Initiate conversation on what patient desires as optimal life despite chronic health concerns *Discuss resuscitation measures once patient less confused *Supportive Care/Therapeutic listening [45] minutes spent on this encounter with >50% of the time in counseling and coordination of care. Thank you for this very appropriate consult.
[2019-05-27] MEDS: methylPREDNISolone Sod Succ/PF 125 MG/2 ML VIAL IVP SCH (20:58)
[2019-05-27] MEDS: Vancomycin HCl 750 MG in Sodium Chloride 0.9% 250 ML 250 ML IVPB SCH (21:14)
[2019-05-27 21:36] LABS: Vancomycin, Random 12.9 ug/mL (See Comment)
--- NOTE | 2019-05-27 22:24 | CON ---
DATE OF CONSULTATION: REASON FOR CONSULT: Pancreatic mass. HISTORY OF PRESENT ILLNESS: Ms. Oconnell is a 68-year-old female with a history of alcohol and drug abuse, who was seen in our clinic originally in 2016 for anemia and leukopenia. It was felt this was due to her continued alcohol use. She was not seen for over 2 years until she returned to our clinic on April 102018 for pancreatic mass. She had been hospitalized in December and had a CT scan of her abdomen, which showed a low-density mass in the head of the pancreas.measuring 2.4 x [address] scan. She was evaluated by [facility] and referred to Dr. Ledbetter in [place] for endoscopic biopsy. The patient had lost 15 pounds of weight. She was in a wheelchair but was still drinking and smoking daily. EUS had not been done so she was referred to [facility] locally for endoscopic ultrasound biopsy. This was performed yesterday. Apparently, the patient was in her normal state of being prior to the biopsy. Several hours after she was home, she developed a fever, chills, and altered mental status. She was brought to the ER. Her temperature was 105. She underwent a CT scan, which showed consolidation of the left lower lobe. Chest x-ray stated postobstructive pneumonitis versus pneumonia. She had a brain CT, which showed a left temporal meningioma. Over the course of the past 12 hours, the patient improved. Her fever resolved and she has returned to her baseline mental status. She complains of hunger, but no other complaints. PAST MEDICAL HISTORY: 1. Alcohol and tobacco abuse. 2. Macrocytic anemia and leukopenia, possibly related to alcohol. 3. Pancreatic head mass. 4. History of noncompliance. 5. Seizure disorder. 6. Hypertension. PAST SURGICAL HISTORY: 1. Total hip arthroscopy. 2. Hysterectomy. ALLERGIES: NO KNOWN DRUG ALLERGIES. HOME MEDICATIONS: 1. B complex. 2. Carbamazepine. 3. Iron. 4. Keppra. 5. Lisinopril. 6. Hydrochlorothiazide. 7. Protonix. 8. Sertraline. 9. Spironolactone. 10. Thiamine. FAMILY HISTORY: Father had throat cancer. Grandmother had stomach cancer. SOCIAL HISTORY: . One child. Continues to smoke and drink. Occasional marijuana use. Lives with her mother. REVIEW OF SYSTEMS: A 10-point review of systems is negative except for noted in HPI. PHYSICAL EXAMINATION: VITAL SIGNS: Temperature is 97.5, pulse is 98, respiratory rate 16, blood pressure is 119/73. She is 97% on room air. GENERAL: This is a thin female, in no acute distress. HEENT: Normocephalic and atraumatic. Pupils are equal and reactive to light. She has poor dentition. NECK: Supple. CV: Regular rate and rhythm. LUNGS: Clear anterior. ABDOMEN: Soft and nontender. Bowel sounds are positive. EXTREMITIES: No clubbing or cyanosis. SKIN: No rash. NEUROLOGIC: Nonfocal. PERTINENT LABS AND X-RAYS: Current WBCs are 2.2, hemoglobin 7.3, hematocrit 22.3, platelet count is 86,000, neutrophils 38%, bands 33%, lymphocytes 7%, monocytes 17%. Sodium 139, potassium 4.0, chloride 103, CO2 is 23, BUN is 21, creatinine 1.79, ammonia is 15, calcium 7.9, magnesium 1, total bilirubin 0.7, AST 31, ALT is 10, alkaline phosphatase is 91, serum total protein 6.3, albumin 3.5, globulin 2.8. Urine showed 1+ bilirubin. Radiology per HPI. ASSESSMENT: 1. Toxic-metabolic encephalopathy. 2. Postprocedure pneumonia. 3. Pancytopenia. 4. History of pancreatic head mass. DISCUSSION: The patient has been treated with IV fluids and antibiotics. Her fever has resolved and she is back to her baseline mental status. According to the medical records provided by the patient, there was no visualized mass to biopsy, and her CA 19-9 was normal. She does have possible myelodysplastic syndrome versus alcohol-related pancytopenia. She will likely need a bone marrow at some point. This can be done in the outpatient setting. She has appointment to follow up with Dr. García next week on 06/05 at 3:15 p.m. Further recommendations will be made at that point. Thank you for the consult. We will sign off and follow up in the clinic. Job ID: [id number] MTDD
[2019-05-28] MEDS: Sodium Chloride 0.9% 1,000 ML IV SCH ×2 (03:01→17:28)
[2019-05-28] MEDS: Piperacillin/Tazobactam 3.375 GM in Sodium Chloride 0.9% 100 ML IVPB SCH ×4 (03:02→22:30)
[2019-05-28] MEDS: methylPREDNISolone Sod Succ/PF 125 MG/2 ML VIAL IVP SCH ×2 (09:00→20:40)
[2019-05-28] MEDS: Enoxaparin Sodium 30 MG/0.3 ML SYRINGE SC SCH (09:01)
[2019-05-28] MEDS ORDERED: Lorazepam 2 MG/ML VIAL SLOW IVP PRN (09:44)
--- NOTE | 2019-05-28 09:49 | PDOC.MOPN ---
Interval History: More awake, denies pain, headache - Vital Signs Vital Signs: Vital Signs (12 hours) Temp Pulse Resp Pulse Ox 05/28/19 08:40 97 05/28/19 07:36 102 H 16 05/28/19 07:30 98.9 F 05/28/19 04:09 99.8 F H 05/28/19 02:23 98 05/28/19 01:53 110 H 18 98 05/27/19 23:36 99.4 F Weight Admit Weight 100 lb Weight 102 lb 3.124 oz Most Recent Monitor Data Heart Rate from ECG 104 NIBP 137/92 NIBP BP-Mean 107 Respiration from ECG 18 SpO2 96 - Physical Exam General: Alert HEENT: Atraumatic Lungs: Clear to auscultation, Normal air movement Cardiovascular: Regular rate, Gallops Abdomen: Normal bowel sounds, Soft, No tenderness, No hepatospenomegaly, No masses Skin: No rashes, No breakdown, No significant lesion Neurological: Normal speech Psych/Mental Status: Mental status NL - Labs Result Diagrams: 05/27/19 02:53 05/27/19 02:53 Lab results: Laboratory Results - last 24 hr 05/27/19 21:12: Random Vancomycin 12.9 Status: lab reviewed by me A/P - Problem (1) Aspiration pneumonia Current Visit: Yes Code(s): J69.0 - PNEUMONITIS DUE TO INHALATION OF FOOD AND VOMIT Status: Acute (2) Pancytopenia Current Visit: Yes Code(s): D61.818 - OTHER PANCYTOPENIA Status: Acute - Plan Plan: 1. Follow-up with Dr. García on 06/05/2019 at 3:15pm 2. Ok to discharge from our perspective.
[2019-05-28 10:22] LABS: Anion Gap 19 mmol/L (10-20); BUN (Urea Nitrogen) 21 mg/dL (9.8-20.1); Calc. Creatinine Clearance 21 mL/min (70-130); Calcium 8.5 mg/dL (7.8-10.44); Carbon Dioxide 17 mmol/L (23-31); Chloride 112 mmol/L (98-107); Estimated GFR-MDRD 31; Glucose 89 mg/dL (80-115); Potassium 3.8 mmol/L (3.5-5.1); Sodium 144 mmol/L (136-145)
[2019-05-28 10:25] LABS: #Lymphocytes 0.3 thou/uL (1.20-3.40); #Monocytes 0.4 thou/uL (0.11-0.59); #Neutrophils 5.5 thou/uL (1.40-6.50); %Basophils 0.1 % (0.0-1.0); %Eosinophils 0.7 % (0.0-10.0); %Lymphocytes 5.5 % (21.0-51.0); %Monocytes 5.8 % (0.0-10.0); %Neutrophils 87.8 % (42.0-75.0); Hemoglobin 7.8 g/dL (12.0-16.0); Mean Corpuscular HGB CONC 34.5 g/dL (32.0-36.0); Mean Corpuscular Hemoglobin 36.2 pg (27.0-31.0); Mean Platelet Volume 7.7 fL (7.4-10.4); Platelet Count 113 thou/uL (130-400); Red Blood Cell (RBC) Count 2.16 mill/uL (4.20-5.40); White Blood Cell (WBC) Count 6.2 thou/uL (4.8-10.8)
--- NOTE | 2019-05-28 10:30 | PDOC.HOSPP ---
- Subjective Encounter Date: 05/28/19 Encounter Time: 10:28 Subjective: Ms. Oconnell was seen today in follow-up of altered mental status. She appears to be back to her baseline. She does not have any recollection of what happened the day she was admitted. She does not even remember going to [facility] to have the endoscopic ultrasound done. She denies shortness of breath, and chest pain. She says she may have had a seizure. - Objective Vital Signs & Weight: Vital Signs (12 hours) Temp Pulse Resp Pulse Ox 05/28/19 08:40 97 05/28/19 07:36 102 H 16 05/28/19 07:30 98.9 F 05/28/19 04:09 99.8 F H 05/28/19 02:23 98 05/28/19 01:53 110 H 18 98 05/27/19 23:36 99.4 F Weight Admit Weight 100 lb Weight 102 lb 3.124 oz Most Recent Monitor Data Heart Rate from ECG 104 NIBP 137/92 NIBP BP-Mean 107 Respiration from ECG 18 SpO2 96 I&O: 05/27/19 05/28/19 05/29/19 06:59 06:59 06:59 Intake Total 376 2878 Output Total 140 877 Balance 236 2000 Result Diagrams: 05/28/19 09:49 05/28/19 09:49 Hospitalist ROS - Medication Medications: Active Medications Generic Name Dose Route Start Last Admin Trade Name Freq PRN Reason Stop Dose Admin Albuterol/Ipratropium 3 ml 05/27/19 13:00 05/28/19 07:36 Duoneb NEB 3 ml [id number] ESTHER Administration Enoxaparin Sodium 30 mg 05/27/19 09:00 05/28/19 09:01 Lovenox SC 30 mg 0900 ESTHER Administration Levetiracetam 500 mg/ Device 100 mls @ 200 mls/hr 05/27/19 09:00 05/28/19 09: 00 IVPB 100 mls BID ESTHER Administration Vancomycin HCl 750 mg/ Sodium 250 mls @ 250 mls/hr 05/27/19 21:00 05/27/19 21 :14 Chloride IVPB 250 mls 2100 ESTHER Administration Sodium Chloride 1,000 mls @ 100 mls/hr 05/27/19 04:30 05/28/19 03:01 Normal Saline 0.9% IV 1,000 mls .Q10H ESTHER Administration Piperacillin Sod/Tazobactam 100 mls @ 200 mls/hr 05/27/19 10:00 05/28/19 09: 00 Sod 3.375 gm/ Sodium Chloride IVPB 100 mls 0400,1000,1600,2200 ESTHER Administration Methylprednisolone Sodium Succinate 40 mg 05/27/19 21:00 05/28/19 09:00 Solu-Medrol IVP 40 mg BID ESTHER Administration - Exam Eye: PERRL Heart: RRR, no murmur (+ S3), no rubs, normal peripheral pulses Respiratory: CTAB, no wheezes, no rales, no ronchi, normal chest expansion, no tachypnea, normal percussion Gastrointestinal: soft, non-tender, non-distended, normal bowel sounds, no palpable masses, no hepatomegaly, no splenomegaly, no bruit, no guarding Extremities: no cyanosis, no clubbing, no edema Hosp A/P (1) Metabolic encephalopathy Code(s): G93.41 - METABOLIC ENCEPHALOPATHY Status: Acute (2) Aspiration pneumonia Code(s): J69.0 - PNEUMONITIS DUE TO INHALATION OF FOOD AND VOMIT Status: Acute (3) Pancytopenia Code(s): D61.818 - OTHER PANCYTOPENIA Status: Acute (4) Pancreatic cancer Status: Acute (5) Acute worsening of stage 3 chronic kidney disease Code(s): N18.3 - CHRONIC KIDNEY DISEASE, STAGE 3 (MODERATE) Status: Acute (6) Hypertension Code(s): I10 - ESSENTIAL (PRIMARY) HYPERTENSION Status: Chronic Qualifiers: (7) Hypothyroidism Code(s): E03.9 - HYPOTHYROIDISM, UNSPECIFIED Status: Chronic Qualifiers: (8) Severe protein-energy malnutrition Code(s): E43 - UNSPECIFIED SEVERE PROTEIN-CALORIE MALNUTRITION Status: Acute - Plan * Metabolic encephalopathy- ? Etiology- she may have suffered a seizure. and in review of her records she has chronic systolic heart failure, and it appears she does not have a defibrillator. She could have suffered an arrhythmia. I am not sure if the heart failure has been further managed since 2017. ( She receives most of her care at [facility])- will call her mother to see if she has any information to offer * Pancreatic cancer- After reviewing the Endoscopic ultrasound report from [facility] again, it appears that they did not visualize a pancreatic mass , and therefore a biopsy was not done. This will need to be further assessed as an outpatient- it was recommended that she have a CT pancreatic protocol in 4 weeks * Pancytopenia- discussed with Oncology- this is being evaluated by Dr. García - this is felt to be either due to ongoing alcohol abuse, or MDS * HTN- blood pressure is stable * Aspiration pneumonia- await swallow evaluation * Acute on chronic kidney injury- improved * Chronic systolic heart failure- discussed with the patient's mother- she does not know of any Cardiology follow-up since the last few years. She tells me she usually goes to the clinic visits with her daughter.- will therefore order an Echo, and if her EF is still in the 30-35% range will consult Cardiology- will add a low dose beta- major
--- NOTE | 2019-05-28 10:53 | PRG ---
DATE OF SERVICE: 05/28/2019 SUBJECTIVE: This morning, she is back to her baseline. Awake, alert, and responsive. OBJECTIVE: VITAL SIGNS: Sats are 97% on room air, pulse 102, temperature 98, and blood pressure 137/92. CHEST: Decreased breath sounds without any wheezing. CARDIAC: Normal S1 and S2. No gallops. ABDOMEN: No masses. IMPRESSION: Severe cachexia, pancreatic mass status post biopsy, encephalopathy, possibly metastases. Await path report. Continue supportive care. She can be probably transferred out of the MICU. Job ID: [id number]
[2019-05-28] MEDS: carBAMazepine 100 mg Chewable Tablet PO SCH (11:22)
[2019-05-28] MEDS: Ferrous Sulfate 325 MG TAB PO SCH (11:22)
[2019-05-28] MEDS: Thiamine 100 MG TAB PO SCH (11:22)
[2019-05-28] MEDS: Carvedilol 3.125 MG TAB PO SCH (17:27)
[2019-05-28 20:43] LABS: Vancomycin, Trough 19.3 ug/mL
[2019-05-28] MEDS: Vancomycin HCl 750 MG in Sodium Chloride 0.9% 250 ML 250 ML IVPB SCH (21:10)
[2019-05-29] MEDS: Piperacillin/Tazobactam 3.375 GM in Sodium Chloride 0.9% 100 ML IVPB SCH (03:44)
[2019-05-29] MEDS: Sodium Chloride 0.9% 1,000 ML IV SCH ×2 (03:44→11:50)
--- NOTE | 2019-05-29 10:03 | PRG ---
DATE OF SERVICE: 05/29/2019 SUBJECTIVE: This morning, she is awake, alert, and responsive, in no distress. All cultures are negative. No longer hypotensive, EF is 25%. Last x-ray shows evidence of left small pleural effusion. OBJECTIVE: VITAL SIGNS: Blood pressure 157/103, temperature 96, saturations 97, and respiratory rate 18. CHEST: Decreased breath sounds. No wheezing. CARDIAC: Normal S1 and S2. No gallops. ABDOMEN: No masses. ASSESSMENT AND PLAN: Congestive cardiomyopathy, chronic obstructive pulmonary disease, substance abuse, azotemia, pancreatic mass, anemia, and renal failure. Stop all antibiotics and steroids. Continue PT and supportive care. She will be transferred out of the MICU. Job ID: [id number]
--- NOTE | 2019-05-29 10:13 | PDOC.HOSPP ---
- Subjective Encounter Date: 05/29/19 Encounter Time: 10:12 Subjective: Ms. Oconnell was seen today in follow-up of syncope. She notes some mild swelling in her right knee, and mild pain. - Objective Vital Signs & Weight: Vital Signs (12 hours) Temp Pulse Resp Pulse Ox 05/29/19 08:01 97 05/29/19 07:59 100 17 99 05/29/19 07:30 98.0 F 05/29/19 03:49 98.4 F 05/28/19 23:35 97.7 F 05/28/19 23:17 93 14 98 Weight Admit Weight 100 lb Weight 108 lb 0.424 oz Most Recent Monitor Data Heart Rate from ECG 96 NIBP 157/103 NIBP BP-Mean 121 Respiration from ECG 14 SpO2 100 I&O: 05/28/19 05/29/19 05/30/19 06:59 06:59 06:59 Intake Total 2878 1519 Output Total 877 100 Balance 2000 1419 Result Diagrams: 05/28/19 09:49 05/28/19 09:49 Hospitalist ROS - Medication Medications: Active Medications Generic Name Dose Route Start Last Admin Trade Name Freq PRN Reason Stop Dose Admin Albuterol/Ipratropium 3 ml 05/27/19 13:00 05/29/19 07:59 Duoneb NEB 3 ml [id number] ESTHER Administration Carbamazepine 150 mg 05/28/19 09:00 05/28/19 11:22 Tegretol PO 150 mg DAILY ESTHER Administration Enoxaparin Sodium 30 mg 05/27/19 09:00 05/28/19 09:01 Lovenox SC 30 mg 09 ESTHER Administration Ferrous Sulfate 325 mg 05/28/19 09:00 05/28/19 11:22 Feosol PO 325 mg DAILY ESTHER Administration Levetiracetam 500 mg/ Device 100 mls @ 200 mls/hr 05/27/19 09:00 05/28/19 20: 34 IVPB 100 mls BID ESTHER Administration Sodium Chloride 1,000 mls @ 100 mls/hr 05/27/19 04:30 05/29/19 03:44 Normal Saline 0.9% IV 1,000 mls .Q10H ESTHER Administration Pantoprazole Sodium 40 mg 05/28/19 09:00 05/28/19 20:39 Protonix PO 40 mg BID ESTHER Administration Sodium Chloride 10 ml 05/28/19 21:00 05/28/19 20:40 Flush - Normal Saline IVF 10 ml Q12HR ESTHER Administration Thiamine HCl 100 mg 05/28/19 09:00 05/28/19 11:22 Thiamine PO 100 mg DAILY ESTHER Administration - Exam Eye: PERRL, anicteric sclera Heart: RRR, no murmur (+ S3), no rubs, irregular Respiratory: CTAB, no wheezes, no rales, no ronchi, normal chest expansion Gastrointestinal: soft, non-tender, non-distended, normal bowel sounds, no palpable masses, no hepatomegaly, no splenomegaly Extremities: no cyanosis, no clubbing, no edema Hosp A/P (1) Metabolic encephalopathy Code(s): G93.41 - METABOLIC ENCEPHALOPATHY Status: Acute (2) Aspiration pneumonia Code(s): J69.0 - PNEUMONITIS DUE TO INHALATION OF FOOD AND VOMIT Status: Acute (3) Pancytopenia Code(s): D61.818 - OTHER PANCYTOPENIA Status: Acute (4) Pancreatic cancer Status: Acute (5) Acute worsening of stage 3 chronic kidney disease Code(s): N18.3 - CHRONIC KIDNEY DISEASE, STAGE 3 (MODERATE) Status: Acute (6) Hypertension Code(s): I10 - ESSENTIAL (PRIMARY) HYPERTENSION Status: Chronic Qualifiers: (7) Hypothyroidism Code(s): E03.9 - HYPOTHYROIDISM, UNSPECIFIED Status: Chronic Qualifiers: (8) Severe protein-energy malnutrition Code(s): E43 - UNSPECIFIED SEVERE PROTEIN-CALORIE MALNUTRITION Status: Acute - Plan * Metabolic encephalopathy- vs. Syncope- unclear. I spoke with the patient's mother who says after she left the procedure yesterday, she ate lunch. Then laid down to take a nap. During the nap she began shaking, but it did not appear like the seizures she has had in the past. * Chronic systolic heart failure- unclear if this has been evaluated. Will request the records from [facility]. Carvediolol has been increased, and Lipitor added. * Pancreatic mass- continues work-up in the outpatient setting * Pancytopenia- discussed with Oncology- this is being evaluated by Dr. García - this is felt to be either due to ongoing alcohol abuse, or MDS * HTN- blood pressure is stable * Aspiration pneumonia- can transition to oral antibiotics * Acute on chronic kidney injury- improved
[2019-05-29] MEDS: Carvedilol 3.125 MG TAB PO SCH (10:15)
[2019-05-29] MEDS: methylPREDNISolone Sod Succ/PF 125 MG/2 ML VIAL IVP SCH (10:15)
[2019-05-29 10:44] LABS: Anion Gap 14 mmol/L (10-20); BUN (Urea Nitrogen) 27 mg/dL (9.8-20.1); Calc. Creatinine Clearance 22 mL/min (70-130); Calcium 8.3 mg/dL (7.8-10.44); Carbon Dioxide 19 mmol/L (23-31); Chloride 109 mmol/L (98-107); Estimated GFR-MDRD 32; Glucose 130 mg/dL (80-115); Potassium 3.9 mmol/L (3.5-5.1); Sodium 138 mmol/L (136-145)
[2019-05-29 11:14] LABS: Band 22 % (5-11); Helmet Cells SLIGHT = 2-5 cells (100X) (0-1/hpf); Hemoglobin 7.7 g/dL (12.0-16.0); Lymphocytes 5 % (21-51); MDiff Complete? YES; Macrocytosis MODERATE=16-30 cells (100X) (0-5/hpf); Mean Corpuscular HGB CONC 33.5 g/dL (32.0-36.0); Mean Platelet Volume 7.7 fL (7.4-10.4); Monocytes 3 % (0-10); Neutrophil 69 % (42-75); Nucleated RBC 1 % (0); Platelet Count 128 thou/uL (130-400); Platelet Morphology Comment Appears Decreased; Polychromasia MODERATE = 3-4 cells (100X) (0-2/hpf); RBC Distribution Width 20.4 % (11.5-14.5); Reactive Lymphocytes 1 % (0-10); Red Blood Cell (RBC) Count 2.14 mill/uL (4.20-5.40); Target Cells SLIGHT = 2-5 cells (100X) (0-1/hpf); Tear Drops SLIGHT = 2-5 cells (100X) (0-1/hpf); White Blood Cell (WBC) Count 6.9 thou/uL (4.8-10.8)
[2019-05-29] MEDS: Ferrous Sulfate 325 MG TAB PO SCH (11:42)
[2019-05-29] MEDS: carBAMazepine 100 mg Chewable Tablet PO SCH (11:43)
[2019-05-29] MEDS: Lisinopril/Hydrochlorothiazide 20 mg/12.5 mg Tablet PO SCH (11:43)
[2019-05-29] MEDS: Spironolactone 25 MG TAB PO SCH (11:43)
[2019-05-29] MEDS: Thiamine 100 MG TAB PO SCH (11:43)
[2019-05-29] MEDS: Enoxaparin Sodium 30 MG/0.3 ML SYRINGE SC SCH (11:44)
[2019-05-29] MEDS: Carvedilol 6.25 MG TAB PO SCH ×2 (11:52→17:01)
[2019-05-29] MEDS: hydrALAZINE 25 MG TAB PO SCH ×2 (17:01→21:18)
[2019-05-29] MEDS: Atorvastatin Calcium 10 MG TAB PO SCH (21:18)
[2019-05-30] MEDS: Sodium Chloride 0.9% 1,000 ML IV SCH (04:53)
--- NOTE | 2019-05-30 08:34 | CON ---
DATE OF CONSULTATION: HISTORY OF PRESENT ILLNESS: The patient is an unfortunate 68-year-old woman, who was admitted with altered mental status and was found to have a worsening cardiomyopathy. The patient has been undergoing evaluation recently for possible pancreatic carcinoma. She was seen in November of 2016 with congestive heart failure and an echocardiogram revealed an ejection fraction of 25% to 30% . The patient subsequently underwent a cardiac catheterization. She was found to have single-vessel coronary artery disease with 100% stenosis of the right coronary artery and collateral flow. The patient's ejection fraction was 45%. The patient did not come for followup. She states she has been followed primarily at [facility]. She states she has seen a coping machine assembler. The patient denies any chest discomfort. She reports being mildly dyspneic. PAST MEDICAL HISTORY: 1. Possible pancreatic carcinoma. 2. Cardiomyopathy. 3. Hypertension. 4. Seizure disorder. 5. Chronic renal insufficiency. PAST SURGICAL HISTORY: Arthroplasty, hysterectomy. ALLERGIES: GADOLINIUM. FAMILY HISTORY: Positive family history of heart disease. SOCIAL HISTORY: Long history of ethanol and tobacco abuse. MEDICATIONS: 1. Iron sulfate 325 daily. 2. Keppra 500 b.i.d. 3. Protonix 40 b.i.d. 4. Spironolactone 25 daily. 5. Lisinopril daily. 6. Carbamazepine one and a half tablets daily. PHYSICAL EXAMINATION: GENERAL: Thin woman, in no acute distress. VITAL SIGNS: Blood pressure 157/103. NECK: Showed no jugular venous distention. LUNGS: Clear to auscultation. HEART: Regular rate and rhythm. Normal S1 and S2. ABDOMEN: Nontender. EXTREMITIES: Showed no edema. VASCULAR: Radial pulses 2+. LABORATORY RESULTS: White blood cell count 6.2, hemoglobin 7.8, hematocrit 22.7 , platelets are 113. Her sodium was 144, potassium 3.8, chloride 112, bicarbonate 17, BUN 21, creatinine was 1.6. Her EKG revealed sinus tachycardia with a nonspecific ST-T wave abnormality. Echocardiogram revealed a severe decrease in left ventricular systolic function, estimated ejection fraction 20% to 25%, moderate to severe mitral regurgitation. IMPRESSION: 1. Cardiomyopathy, probably secondary to alcohol abuse. 2. Pancytopenia. 3. Possible pancreatic carcinoma. 4. Coronary artery disease. 5. Ethanol abuse. 6. Tobacco abuse. This patient presents with a worsening cardiomyopathy. She at this time on lisinopril. We would recommend she start on Coreg. The patient's prognosis is very guarded. We will follow this patient with you through her hospitalizatin. Job ID: [id number] MTDD
[2019-05-30] MEDS: Carvedilol 6.25 MG TAB PO SCH ×3 (09:07→17:18)
--- NOTE | 2019-05-30 09:20 | PRG ---
DATE OF SERVICE: 05/30/2019 SUBJECTIVE: Dena Oconnell is a 68-year-old female, still in the MICU. She denies any pain or discomfort. OBJECTIVE: VITAL SIGNS: Temperature 97, pulse 94, saturations are 98% on room air, and blood pressure 120/80. CHEST: Decreased breath sounds. No wheezing. CARDIAC: Normal S1, S2. No gallops. ABDOMEN: No masses. LABORATORY DATA: H and H are 7 and 23 and platelet count 28. Creatinine 1.92. ASSESSMENT: 1. Renal failure. 2. Alcohol and tobacco abuse. 3. Cachexia. 4. Presumed aspiration pneumonia. PLAN: From the Pulmonary standpoint a few at this stage, she was transferred out of the MICU. Cardiology was consulted. We will switch over to oral anti-seizure medication. We will follow while in the MICU. Job ID: [id number]
[2019-05-30] MEDS ORDERED: hydrALAZINE 25 MG TAB PO SCH (09:45)
[2019-05-30] MEDS ORDERED: Carvedilol 6.25 MG TAB PO SCH (09:45)
--- NOTE | 2019-05-30 09:58 | PDOC.HOSPP ---
- Subjective Encounter Date: 05/30/19 Encounter Time: 09:56 Subjective: Ms. Oconnell was seen in follow-up of syncope/altered mental status. She is likely at her baseline. She does not have any new complaints. - Objective Vital Signs & Weight: Vital Signs (12 hours) Temp Pulse Resp BP Pulse Ox 05/30/19 09:07 155/104 H 05/30/19 08:25 98 05/30/19 07:38 94 15 05/30/19 07:34 97.3 F L 05/30/19 03:35 98.1 F 05/30/19 00:02 98 05/29/19 23:42 97.6 F 05/29/19 22:13 97 Weight Admit Weight 100 lb 4.965 oz Weight 109 lb 9.116 oz Most Recent Monitor Data Heart Rate from ECG 98 NIBP 169/112 NIBP BP-Mean 131 Respiration from ECG 19 SpO2 97 I&O: 05/29/19 05/30/19 05/31/19 06:59 06:59 06:59 Intake Total 1519 400 Output Total 100 150 Balance 1419 250 Result Diagrams: 05/29/19 10:16 05/29/19 10:16 Hospitalist ROS - Medication Medications: Active Medications Generic Name Dose Route Start Last Admin Trade Name Freq PRN Reason Stop Dose Admin Albuterol/Ipratropium 3 ml 05/27/19 13:00 05/30/19 07:38 Duoneb NEB 3 ml [id number] ESTHER Administration Atorvastatin Calcium 10 mg 05/29/19 21:00 05/29/19 21:18 Lipitor PO 10 mg HS ESTHER Administration Carbamazepine 150 mg 05/28/19 09:00 05/29/19 11:43 Tegretol PO 150 mg DAILY ESTHER Administration Enoxaparin Sodium 30 mg 05/27/19 09:00 05/29/19 11:44 Lovenox SC 30 mg 0900 ESTHER Administration Ferrous Sulfate 325 mg 05/28/19 09:00 05/29/19 11:42 Feosol PO 325 mg DAILY ESTHER Administration Lisinopril/HCTZ 1 tab 05/29/19 09:00 05/29/19 11:43 Prinizide 20-12.5 PO 1 tab DAILY ESTHER Administration Levetiracetam 500 mg/ Device 100 mls @ 200 mls/hr 05/27/19 09:00 05/29/19 21: 18 IVPB 100 mls BID ESTHER Administration Pantoprazole Sodium 40 mg 05/28/19 09:00 05/29/19 21:18 Protonix PO 40 mg BID ESTHER Administration Sertraline HCl 100 mg 05/29/19 09:00 05/29/19 11:43 Zoloft PO 100 mg DAILY ESTHER Administration Sodium Chloride 10 ml 05/28/19 21:00 05/29/19 21:17 Flush - Normal Saline IVF 10 ml Q12HR ESTHER Administration Spironolactone 25 mg 05/29/19 09:00 05/29/19 11:43 Aldactone PO 25 mg DAILY ESTHER Administration Thiamine HCl 100 mg 05/28/19 09:00 05/29/19 11:43 Thiamine PO 100 mg DAILY ESTHER Administration - Exam Eye: PERRL, anicteric sclera Heart: RRR, no murmur, no gallops, no rubs, normal peripheral pulses Respiratory: CTAB, no wheezes, no rales, no ronchi, normal chest expansion Gastrointestinal: soft, non-tender, non-distended, normal bowel sounds, no palpable masses, no hepatomegaly, no splenomegaly Extremities: no cyanosis, no clubbing, no edema Hosp A/P (1) Metabolic encephalopathy Code(s): G93.41 - METABOLIC ENCEPHALOPATHY Status: Acute (2) Aspiration pneumonia Code(s): J69.0 - PNEUMONITIS DUE TO INHALATION OF FOOD AND VOMIT Status: Acute (3) Pancytopenia Code(s): D61.818 - OTHER PANCYTOPENIA Status: Acute (4) Pancreatic cancer Status: Acute (5) Acute worsening of stage 3 chronic kidney disease Code(s): N18.3 - CHRONIC KIDNEY DISEASE, STAGE 3 (MODERATE) Status: Acute (6) Hypertension Code(s): I10 - ESSENTIAL (PRIMARY) HYPERTENSION Status: Chronic Qualifiers: (7) Hypothyroidism Code(s): E03.9 - HYPOTHYROIDISM, UNSPECIFIED Status: Chronic Qualifiers: (8) Severe protein-energy malnutrition Code(s): E43 - UNSPECIFIED SEVERE PROTEIN-CALORIE MALNUTRITION Status: Acute - Plan * Metabolic encephalopathy- vs. Syncope- * Chronic systolic heart failure- unclear if this has been evaluated. - There were no records from [facility] regarding any Cardiology evaluation- continue Carvediolol, and Lisinopril. ? candidate for Life vest or defibrillator ?- will defer to Cardiology * Pancreatic mass- continues work-up in the outpatient setting * Pancytopenia-MDS vs. due to alcohol abuse- stable * HTN- blood pressure is beginning to rise- agree with increased dose of Carvediolol, and continue Lisinopril * Aspiration pneumonia- can transition to oral antibiotics * Acute on chronic kidney injury- stable * Patient's mother is considering alf
[2019-05-30] MEDS: Lisinopril/Hydrochlorothiazide 20 mg/12.5 mg Tablet PO SCH (10:22)
[2019-05-30] MEDS: Enoxaparin Sodium 30 MG/0.3 ML SYRINGE SC SCH (10:22)
[2019-05-30] MEDS: Ferrous Sulfate 325 MG TAB PO SCH (10:22)
[2019-05-30] MEDS: Spironolactone 25 MG TAB PO SCH (10:22)
[2019-05-30] MEDS: carBAMazepine 100 mg Chewable Tablet PO SCH (10:22)
[2019-05-30] MEDS: Isosorbide Dinitrate 20 MG TAB PO SCH ×3 (10:23→20:54)
[2019-05-30] MEDS: Thiamine 100 MG TAB PO SCH (10:23)
[2019-05-30] MEDS: hydrALAZINE 25 MG TAB PO SCH ×2 (15:03→21:14)
[2019-05-30] MEDS: Atorvastatin Calcium 10 MG TAB PO SCH (20:52)
[2019-05-31] MEDS: Ferrous Sulfate 325 MG TAB PO SCH (09:56)
[2019-05-31] MEDS: Folic Acid 1 MG TAB PO SCH (09:57)
[2019-05-31] MEDS: Carvedilol 6.25 MG TAB PO SCH (09:57)
[2019-05-31] MEDS: carBAMazepine 100 mg Chewable Tablet PO SCH (09:57)
[2019-05-31] MEDS: Thiamine 100 MG TAB PO SCH (09:57)
[2019-05-31] MEDS: hydrALAZINE 25 MG TAB PO SCH ×3 (09:57→22:28)
[2019-05-31] MEDS: Lisinopril/Hydrochlorothiazide 20 mg/12.5 mg Tablet PO SCH (09:58)
[2019-05-31] MEDS: Spironolactone 25 MG TAB PO SCH (09:58)
[2019-05-31] MEDS: Enoxaparin Sodium 30 MG/0.3 ML SYRINGE SC SCH (09:58)
[2019-05-31] MEDS: Isosorbide Dinitrate 20 MG TAB PO SCH ×3 (09:58→21:52)
[2019-05-31] MEDS: levETIRAcetam 500 MG TAB PO SCH ×2 (10:01→21:51)
[2019-05-31] MEDS ORDERED: Carvedilol 6.25 MG TAB PO SCH (10:26)
[2019-05-31] MEDS ORDERED: Carvedilol 25 MG TAB PO SCH (10:45)
[2019-05-31] MEDS: Carvedilol 25 MG TAB PO SCH (18:15)
--- NOTE | 2019-05-31 20:20 | PDOC.HOSPP ---
- Subjective Encounter Date: 05/31/19 Encounter Time: 12:30 Subjective: pt up in bed no complains - Objective Vital Signs & Weight: Vital Signs (12 hours) Temp Pulse Resp BP 05/31/19 19:17 98.8 F 05/31/19 15:29 99.0 F 05/31/19 14:49 80 05/31/19 13:40 80 15 05/31/19 09:58 81 05/31/19 09:57 81 93/59 L Weight Admit Weight 100 lb 4.965 oz Weight 109 lb 4.8 oz Most Recent Monitor Data Heart Rate from ECG 82 NIBP 100/58 NIBP BP-Mean 72 Respiration from ECG 17 SpO2 100 I&O: 05/30/19 05/31/19 06/01/19 06:59 06:59 06:59 Intake Total 400 350 Output Total 150 Balance 250 350 Result Diagrams: 05/29/19 10:16 05/29/19 10:16 Hospitalist ROS - Review of Systems Cardiovascular: denies: chest pain, palpitations, orthopnea, paroxysmal noc. dyspnea, edema, light headedness, other Gastrointestinal: denies: nausea, vomiting, abdominal pain, diarrhea, constipation, melena, hematochezia, other Genitourinary: denies: dysuria, frequency, incontinence, hematuria, retention, other - Medication Medications: Active Medications Generic Name Dose Route Start Last Admin Trade Name Freq PRN Reason Stop Dose Admin Albuterol/Ipratropium 3 ml 05/27/19 13:00 05/31/19 18:53 Duoneb NEB Not Given [id number] ESTHER Atorvastatin Calcium 10 mg 05/29/19 21:00 05/30/19 20:52 Lipitor PO 10 mg HS ESTHER Administration Carbamazepine 150 mg 05/28/19 09:00 05/31/19 09:57 Tegretol PO 150 mg DAILY ESTHER Administration Carvedilol 25 mg 05/31/19 17:00 05/31/19 18:15 Coreg PO 25 mg BID-WM ESTHER Administration Enoxaparin Sodium 30 mg 05/27/19 09:00 05/31/19 09:58 Lovenox SC 30 mg 0900 ESTHER Administration Ferrous Sulfate 325 mg 05/28/19 09:00 05/31/19 09:56 Feosol PO 325 mg DAILY ESTHER Administration Folic Acid 1 mg 05/31/19 09:00 05/31/19 09:57 Folvite PO 1 mg DAILY ESTHER Administration Lisinopril/HCTZ 1 tab 05/29/19 09:00 05/31/19 09:58 Prinizide 20-12.5 PO 1 tab DAILY ESTHER Administration Hydralazine HCl 50 mg 05/30/19 15:00 05/31/19 14:49 Apresoline PO 50 mg TID ESTHER Administration Isosorbide Dinitrate 20 mg 05/30/19 09:00 05/31/19 14:49 Isordil PO 20 mg TID ESTHER Administration Levetiracetam 500 mg 05/31/19 21:00 05/31/19 10:01 Keppra PO 500 mg BID ESTHER Administration Pantoprazole Sodium 40 mg 05/28/19 09:00 05/31/19 09:57 Protonix PO 40 mg BID ESTHER Administration Sertraline HCl 100 mg 05/29/19 09:00 05/31/19 09:57 Zoloft PO 100 mg DAILY ESTHER Administration Sodium Chloride 10 ml 05/28/19 21:00 05/31/19 09:58 Flush - Normal Saline IVF 10 ml Q12HR ESTHER Administration Spironolactone 25 mg 05/29/19 09:00 05/31/19 09:58 Aldactone PO 25 mg DAILY ESTHER Administration Thiamine HCl 100 mg 05/28/19 09:00 05/31/19 09:57 Thiamine PO 100 mg DAILY ESTHER Administration - Exam Neck: negative: supple, symmetric, no JVD, no thyromegaly, no lymphadenopathy, no carotid bruit, JVD Heart: negative: RRR, no murmur, no gallops, no rubs, normal peripheral pulses, irregular, diminshed peripheral pulses, murmur present, II/IV, III/IV Respiratory: negative: CTAB, no wheezes, no rales, no ronchi, normal chest expansion, no tachypnea, normal percussion, rales, rhonchi, tachypneic, wheezes Hosp A/P (1) Aspiration pneumonia Code(s): J69.0 - PNEUMONITIS DUE TO INHALATION OF FOOD AND VOMIT Status: Acute (2) Metabolic encephalopathy Code(s): G93.41 - METABOLIC ENCEPHALOPATHY Status: Acute (3) Pancytopenia Code(s): D61.818 - OTHER PANCYTOPENIA Status: Acute (4) Severe protein-energy malnutrition Code(s): E43 - UNSPECIFIED SEVERE PROTEIN-CALORIE MALNUTRITION Status: Acute (5) Alcohol abuse Code(s): F10.10 - ALCOHOL ABUSE, UNCOMPLICATED Status: Chronic (6) Hypertension Code(s): I10 - ESSENTIAL (PRIMARY) HYPERTENSION Status: Chronic Qualifiers: (7) Seizure disorder Code(s): G40.909 - EPILEPSY, UNSP, NOT INTRACTABLE, WITHOUT STATUS EPILEPTICUS Status: Chronic - Plan will start pt on Augmentin. will need some rehab. pt on ciwa protocol.
[2019-05-31] MEDS: Amoxicillin/Potassium Clav 875 MG TAB PO SCH (21:51)
[2019-05-31] MEDS: Atorvastatin Calcium 10 MG TAB PO SCH (21:52)
--- NOTE | 2019-06-01 00:12 | EKG ---
Test Reason : Blood Pressure : / mmHG Vent. Rate : 136 BPM Atrial Rate : 136 BPM P-R Int : 000 ms QRS Dur : 088 ms QT Int : 332 ms P-R-T Axes : 000 034 075 degrees QTc Int : 499 ms Sinus tachycardia Nonspecific T wave abnormality Abnormal ECG Confirmed by HUGO CHOWDHURY ([id number]), image editor QUINTEN FAUST ([id number]) on 06/01/2019 12:12:13 AM Referred By: Confirmed By:HUGO CHOWDHURY
--- NOTE | 2019-06-01 00:18 | EKG ---
Test Reason : Blood Pressure : / mmHG Vent. Rate : 170 BPM Atrial Rate : 092 BPM P-R Int : 000 ms QRS Dur : 072 ms QT Int : 266 ms P-R-T Axes : 000 024 079 degrees QTc Int : 447 ms Supraventricular tachycardia Anterior infarct , age undetermined Abnormal ECG Confirmed by HGUO CHOWDHURY ([id number]), film and video editor QUINTEN FAUST ([id number]) on 06/01/2019 12:17:48 AM Referred By: Confirmed By:HUGO CHOWDHURY
[2019-06-01 06:08] LABS: Anion Gap 12 mmol/L (10-20); BUN (Urea Nitrogen) 28 mg/dL (9.8-20.1); Calc. Creatinine Clearance 22 mL/min (70-130); Calcium 8.3 mg/dL (7.8-10.44); Carbon Dioxide 17 mmol/L (23-31); Chloride 111 mmol/L (98-107); Estimated GFR-MDRD 30; Glucose 82 mg/dL (80-115); Potassium 3.7 mmol/L (3.5-5.1); Sodium 136 mmol/L (136-145)
[2019-06-01 06:18] LABS: Anisocytosis SLIGHT = 6-15 cells (100X) (0-5/hpf); Band 3 % (5-11); Eosinophils 1 % (0-10); Helmet Cells SLIGHT = 2-5 cells (100X) (0-1/hpf); Hemoglobin 6.8 g/dL (12.0-16.0); Lymphocytes 9 % (21-51); MDiff Complete? YES; Macrocytosis MODERATE=16-30 cells (100X) (0-5/hpf); Mean Corpuscular HGB CONC 31.8 g/dL (32.0-36.0); Mean Corpuscular Hemoglobin 36.3 pg (27.0-31.0); Mean Platelet Volume 7.1 fL (7.4-10.4); Monocytes 15 % (0-10); Neutrophil 72 % (42-75); Platelet Count 195 thou/uL (130-400); Platelet Morphology Comment Appears Adequate; Polychromasia SLIGHT = 2-3 cells (100X) (0-2/hpf); RBC Distribution Width 19.9 % (11.5-14.5); Red Blood Cell (RBC) Count 1.86 mill/uL (4.20-5.40); White Blood Cell (WBC) Count 4.1 thou/uL (4.8-10.8)
[2019-06-01] MEDS: carBAMazepine 100 mg Chewable Tablet PO SCH (09:07)
[2019-06-01] MEDS: Enoxaparin Sodium 30 MG/0.3 ML SYRINGE SC SCH (09:07)
[2019-06-01] MEDS: Amoxicillin/Potassium Clav 875 MG TAB PO SCH ×2 (09:07→20:36)
[2019-06-01] MEDS: Isosorbide Dinitrate 20 MG TAB PO SCH ×3 (09:07→20:36)
[2019-06-01] MEDS: Thiamine 100 MG TAB PO SCH (09:07)
[2019-06-01] MEDS: Folic Acid 1 MG TAB PO SCH (09:07)
[2019-06-01] MEDS: Carvedilol 25 MG TAB PO SCH ×2 (09:07→16:48)
[2019-06-01] MEDS: Lisinopril/Hydrochlorothiazide 20 mg/12.5 mg Tablet PO SCH (09:07)
[2019-06-01] MEDS: Ferrous Sulfate 325 MG TAB PO SCH (09:08)
[2019-06-01] MEDS: Spironolactone 25 MG TAB PO SCH (09:08)
[2019-06-01] MEDS: hydrALAZINE 25 MG TAB PO SCH ×3 (09:08→20:40)
[2019-06-01] MEDS: levETIRAcetam 500 MG TAB PO SCH ×2 (09:08→20:36)
[2019-06-01 10:03] LABS: ALT (SGPT) Less than 7 U/L (8-55); AST (SGOT) 12 U/L (5-34); Albumin 2.5 g/dL (3.4-4.8); Alkaline Phosphatase 66 U/L (40-110); Bilirubin, Direct 0.3 mg/dL (0.1-0.3); Bilirubin, Total 0.3 mg/dL (0.2-1.2); Magnesium 1.7 mg/dL (1.6-2.6)
[2019-06-01 10:37] LABS: Vitamin D, 25 Hydroxy Less than 3.4 ng/ml (> 30.0)
[2019-06-01 10:43] LABS: Vitamin B12 1723 pg/mL (211-911)
--- NOTE | 2019-06-01 16:38 | PDOC.HOSPP ---
- Subjective Encounter Date: 06/01/19 Encounter Time: 11:30 Subjective: pt up in bed drowsy but arousable. - Objective Vital Signs & Weight: Vital Signs (12 hours) Temp Pulse Pulse Pulse Resp BP BP 06/01/19 15:07 98.7 F 06/01/19 13:30 84 85 168/100 H 170/100 H 06/01/19 13:24 80 14 06/01/19 10:20 99.0 F 06/01/19 09:08 77 06/01/19 09:07 77 06/01/19 08:00 06/01/19 07:16 06/01/19 07:15 77 12 06/01/19 07:08 98.7 F Pulse Ox Pulse Ox Pulse Ox 06/01/19 15:07 06/01/19 13:30 96 95 06/01/19 13:24 99 06/01/19 10:20 06/01/19 09:08 06/01/19 09:07 06/01/19 08:00 100 06/01/19 07:16 99 06/01/19 07:15 99 06/01/19 07:08 Weight Admit Weight 100 lb 4.965 oz Weight 110 lb 7.04 oz Most Recent Monitor Data Heart Rate from ECG 83 NIBP 168/101 NIBP BP-Mean 123 Respiration from ECG 16 SpO2 100 I&O: 05/31/19 06/01/19 06/02/19 06:59 06:59 06:59 Intake Total 350 0 Balance 350 0 Result Diagrams: 06/01/19 05:13 06/01/19 05:13 Hospitalist ROS - Review of Systems Respiratory: denies: cough, dry, shortness of breath, hemoptysis, SOB with excertion, pleuritic pain, sputum, wheezing, other Cardiovascular: denies: chest pain, palpitations, orthopnea, paroxysmal noc. dyspnea, edema, light headedness, other Gastrointestinal: denies: nausea, vomiting, abdominal pain, diarrhea, constipation, melena, hematochezia, other - Medication Medications: Active Medications Generic Name Dose Route Start Last Admin Trade Name Freq PRN Reason Stop Dose Admin Albuterol/Ipratropium 3 ml 05/27/19 13:00 06/01/19 13:24 Duoneb NEB 3 ml [id number] ESTHER Administration Amoxicillin/Clavulanate Potassium 875 mg 05/31/19 21:00 06/01/19 09:07 Augmentin PO 875 mg Q12HR ESTHER Administration Atorvastatin Calcium 10 mg 05/29/19 21:00 05/31/19 21:52 Lipitor PO 10 mg HS ESTHER Administration Carbamazepine 150 mg 05/28/19 09:00 06/01/19 09:07 Tegretol PO 150 mg DAILY ESTHER Administration Carvedilol 25 mg 05/31/19 17:00 06/01/19 09:07 Coreg PO 25 mg BID-WM ESTHER Administration Enoxaparin Sodium 30 mg 05/27/19 09:00 06/01/19 09:07 Lovenox SC 30 mg 0900 ESTHER Administration Ferrous Sulfate 325 mg 05/28/19 09:00 06/01/19 09:08 Feosol PO 325 mg DAILY ESTHER Administration Folic Acid 1 mg 05/31/19 09:00 06/01/19 09:07 Folvite PO 1 mg DAILY ESTHER Administration Lisinopril/HCTZ 1 tab 05/29/19 09:00 06/01/19 09:07 Prinizide 20-12.5 PO 1 tab DAILY ESTHER Administration Hydralazine HCl 50 mg 05/30/19 15:00 06/01/19 09:08 Apresoline PO 50 mg TID ESTHER Administration Isosorbide Dinitrate 20 mg 05/30/19 09:00 06/01/19 09:07 Isordil PO 20 mg TID ESTHER Administration Levetiracetam 500 mg 05/31/19 21:00 06/01/19 09:08 Keppra PO 500 mg BID ESTHER Administration Pantoprazole Sodium 40 mg 05/28/19 09:00 06/01/19 09:07 Protonix PO 40 mg BID ESTHER Administration Sertraline HCl 100 mg 05/29/19 09:00 06/01/19 09:07 Zoloft PO 100 mg DAILY ESTHER Administration Sodium Chloride 10 ml 05/28/19 21:00 06/01/19 09:09 Flush - Normal Saline IVF 10 ml Q12HR ESTHER Administration Spironolactone 25 mg 05/29/19 09:00 06/01/19 09:08 Aldactone PO 25 mg DAILY ESTHER Administration Thiamine HCl 100 mg 05/28/19 09:00 06/01/19 09:07 Thiamine PO 100 mg DAILY ESTHER Administration - Exam Heart: RRR, no murmur Respiratory: CTAB, no wheezes, no rales Gastrointestinal: soft, non-tender, non-distended Hosp A/P (1) Aspiration pneumonia Code(s): J69.0 - PNEUMONITIS DUE TO INHALATION OF FOOD AND VOMIT Status: Acute (2) Metabolic encephalopathy Code(s): G93.41 - METABOLIC ENCEPHALOPATHY Status: Acute (3) Pancytopenia Code(s): D61.818 - OTHER PANCYTOPENIA Status: Acute (4) Severe protein-energy malnutrition Code(s): E43 - UNSPECIFIED SEVERE PROTEIN-CALORIE MALNUTRITION Status: Acute (5) Alcohol abuse Code(s): F10.10 - ALCOHOL ABUSE, UNCOMPLICATED Status: Chronic (6) Hypertension Code(s): I10 - ESSENTIAL (PRIMARY) HYPERTENSION Status: Chronic Qualifiers: (7) Seizure disorder Code(s): G40.909 - EPILEPSY, UNSP, NOT INTRACTABLE, WITHOUT STATUS EPILEPTICUS Status: Chronic - Plan will start pt on Augmentin. will need some rehab. pt on ciwa protocol. 06/01 pt on abx, will replace electrolytes. family wants pt to go to snf. ca19- 9 normal. will monitor.
[2019-06-01] MEDS: Atorvastatin Calcium 10 MG TAB PO SCH (20:37)
[2019-06-02 07:12] LABS: #Basophils 0.1 thou/uL (0.0-0.2); #Eosinphils 0.1 thou/uL (0.0-0.7); #Lymphocytes 0.3 thou/uL (1.20-3.40); #Monocytes 0.6 thou/uL (0.11-0.59); #Neutrophils 4.3 thou/uL (1.40-6.50); %Basophils 1.5 % (0.0-1.0); %Eosinophils 1.2 % (0.0-10.0); %Lymphocytes 5.8 % (21.0-51.0); %Monocytes 10.7 % (0.0-10.0); %Neutrophils 80.8 % (42.0-75.0); Mean Corpuscular HGB CONC 33.9 g/dL (32.0-36.0); Mean Corpuscular Hemoglobin 36.5 pg (27.0-31.0); Mean Platelet Volume 7.6 fL (7.4-10.4); Platelet Count 188 thou/uL (130-400); RBC Distribution Width 19.3 % (11.5-14.5); Red Blood Cell (RBC) Count 2.46 mill/uL (4.20-5.40); White Blood Cell (WBC) Count 5.3 thou/uL (4.8-10.8)
[2019-06-02 07:31] LABS: MDiff Complete? YES; Macrocytosis SLIGHT = 6-15 cells (100X) (0-5/hpf); Polychromasia MODERATE = 3-4 cells (100X) (0-2/hpf)
[2019-06-02] MEDS ORDERED: Ergocalciferol 1.25 MG(50,000 UNITS) CAP PO SCH (09:00)
[2019-06-02] MEDS: carBAMazepine 100 mg Chewable Tablet PO SCH (09:04)
[2019-06-02] MEDS: Ferrous Sulfate 325 MG TAB PO SCH (09:05)
[2019-06-02] MEDS: Carvedilol 25 MG TAB PO SCH ×2 (09:05→16:40)
[2019-06-02] MEDS: Spironolactone 25 MG TAB PO SCH (09:05)
[2019-06-02] MEDS: hydrALAZINE 25 MG TAB PO SCH ×3 (09:05→21:23)
[2019-06-02] MEDS: Thiamine 100 MG TAB PO SCH (09:05)
[2019-06-02] MEDS: Folic Acid 1 MG TAB PO SCH (09:06)
[2019-06-02] MEDS: levETIRAcetam 500 MG TAB PO SCH ×2 (09:06→21:23)
[2019-06-02] MEDS: Cholecalciferol (Vitamin D3) 400 UNITS TAB PO SCH (09:06)
[2019-06-02] MEDS: Isosorbide Dinitrate 20 MG TAB PO SCH ×3 (09:07→21:23)
[2019-06-02] MEDS: Lisinopril/Hydrochlorothiazide 20 mg/12.5 mg Tablet PO SCH (09:07)
[2019-06-02] MEDS: Enoxaparin Sodium 30 MG/0.3 ML SYRINGE SC SCH (09:07)
[2019-06-02] MEDS: Amoxicillin/Potassium Clav 875 MG TAB PO SCH ×2 (09:07→21:23)
--- NOTE | 2019-06-02 09:56 | PRG ---
DATE OF SERVICE: 06/02/2019 SUBJECTIVE: Dena Oconnell, this morning, denies any pain or discomfort. OBJECTIVE: VITAL SIGNS: Saturations 100% on room air, respiratory rate 16, temperature 98, and blood pressure is 176/99. CHEST: Decreased breath sounds. No wheezing. CARDIAC: Normal S1 and S2. No gallops. ABDOMEN: No masses. ASSESSMENT: Cachexia, pancreatic masss/p biopsy?? r out alcohol abuse, tobacco abuse, and encephalopathy. PLAN: Pulmonary kim, nothing additional to offer. Pulmonary/Critical Care will follow at a distant. Disposition as per primary care physician. Job ID: [id number] MTDD
--- NOTE | 2019-06-02 13:43 | PQF ---
CLINICAL DOCUMENTATION IMPROVEMENT CLARIFICATION FORM: ICD-10 Updated PLEASE DO AN ADDENDUM TO THE PROGRESS NOTE WITH ANY DOCUMENTATION UPDATES OR ADDITIONS AND CARRY THROUGH TO DC SUMMARY. THANK YOU. DATE: 06/02/2019; 06/04/2019 ATTN: Dr. Quintero Please exercise your independent, professional judgment in responding to the clarification form. Clinical indicators are provided on the bottom of this form for your review Please check appropriate box(s) to clarify if the following diagnosis has been ruled in or ruled out: SEPSIS [ x] Ruled in diagnosis [ ] Continue to treat [ ] Resolved [ ] Ruled out diagnosis [ ] Cannot rule out diagnosis [ ] Other diagnosis [ ] Unable to determine In addition, please specify: Present on Admission (POA): [ x ] Yes [ ] No [ ] Unable to determine For continuity of documentation, please document condition throughout progress notes and discharge summary. Thank You. CLINICAL INDICATORS - SIGNS / SYMPTOMS / LABS H&P 05/26: Sepsis: The pt presented with tachycardia, hypotension, fever 105 The source is pneumonia. Acute kidney injury. Lactic acidosis, initially was 4.7, now 1.4 PN 06/01: Aspiration pneumonia Metabolic encephalopathy RISKS: H&P 05/26: Hx of anemia, HTN, seizures, liver disease, CM. Reportedly, the pt undergone for the pancreatic cancer a lung biopsy through endoscopic ultrasound today. Assessment: Acute encephalopathy, likely secondary to sepsis. Pancytopenia. Uncontrolled DM. TREATMENT: Order 05/27-05/29: Zosyn 3.375 gm IV Order 05/27-05/29: Vancomycin HCL 750 mg IV MAR: 05/31: Amoxicillin 875 mo po q 12 hr Thank you, Violet (This form is maintained as a part of the permanent medical record) 2014 [employer]. All Rights Reserved Violet Salguero RN, BSN [email or web address] Office: [phone] [facility]
[2019-06-02] MEDS: Atorvastatin Calcium 10 MG TAB PO SCH (21:23)
[2019-06-03] MEDS: Enoxaparin Sodium 30 MG/0.3 ML SYRINGE SC SCH (08:44)
[2019-06-03] MEDS: carBAMazepine 100 mg Chewable Tablet PO SCH (08:45)
[2019-06-03] MEDS: Amoxicillin/Potassium Clav 875 MG TAB PO SCH ×2 (08:45→21:13)
[2019-06-03] MEDS: Cholecalciferol (Vitamin D3) 400 UNITS TAB PO SCH (08:45)
[2019-06-03] MEDS: hydrALAZINE 25 MG TAB PO SCH ×3 (08:46→20:50)
[2019-06-03] MEDS: levETIRAcetam 500 MG TAB PO SCH ×2 (08:46→21:13)
[2019-06-03] MEDS: Folic Acid 1 MG TAB PO SCH (08:46)
[2019-06-03] MEDS: Carvedilol 25 MG TAB PO SCH ×2 (08:47→16:21)
[2019-06-03] MEDS: Thiamine 100 MG TAB PO SCH (08:47)
[2019-06-03] MEDS: Ferrous Sulfate 325 MG TAB PO SCH (08:47)
[2019-06-03] MEDS: Isosorbide Dinitrate 20 MG TAB PO SCH ×3 (08:48→21:13)
[2019-06-03] MEDS: Lisinopril/Hydrochlorothiazide 20 mg/12.5 mg Tablet PO SCH (08:48)
[2019-06-03] MEDS: Spironolactone 25 MG TAB PO SCH (08:48)
--- NOTE | 2019-06-03 12:23 | PDOC.HOSPP ---
- Subjective Encounter Date: 06/02/19 Encounter Time: 10:30 Subjective: pt up in bed no complains - Objective Vital Signs & Weight: Vital Signs (12 hours) Temp Pulse Resp BP Pulse Ox 06/03/19 11:45 97.6 F 68 14 104/64 95 06/03/19 08:43 97.9 F 83 16 158/88 H 96 06/03/19 07:20 81 14 98 06/03/19 04:00 98.3 F 80 14 151/80 H 95 Weight Admit Weight 100 lb 4.965 oz Weight 113 lb 4.8 oz Most Recent Monitor Data Heart Rate from ECG 76 NIBP 137/80 NIBP BP-Mean 99 Respiration from ECG 13 SpO2 100 I&O: 06/02/19 06/03/19 06/04/19 06:59 06:59 06:59 Intake Total 350 1210 Balance 350 1210 Result Diagrams: 06/02/19 06:49 06/01/19 05:13 Hospitalist ROS - Review of Systems Respiratory: denies: cough, dry, shortness of breath, hemoptysis, SOB with excertion, pleuritic pain, sputum, wheezing, other Cardiovascular: denies: chest pain, palpitations, orthopnea, paroxysmal noc. dyspnea, edema, light headedness, other Gastrointestinal: denies: nausea, vomiting, abdominal pain, diarrhea, constipation, melena, hematochezia, other - Medication Medications: Active Medications Generic Name Dose Route Start Last Admin Trade Name Freq PRN Reason Stop Dose Admin Acetaminophen 650 mg 05/26/19 22:52 06/01/19 20:36 Tylenol PO 650 mg Q4H PRN Administration Headache/Fever/Mild Pain (1-3) Albuterol/Ipratropium 3 ml 05/27/19 13:00 06/03/19 07:20 Duoneb NEB 3 ml [id number] ESTHER Administration Amoxicillin/Clavulanate Potassium 875 mg 05/31/19 21:00 06/03/19 08:45 Augmentin PO 875 mg Q12HR ESTHER Administration Atorvastatin Calcium 10 mg 05/29/19 21:00 06/02/19 21:23 Lipitor PO 10 mg HS ESTHER Administration Carbamazepine 150 mg 05/28/19 09:00 06/03/19 08:45 Tegretol PO 150 mg DAILY ESTHER Administration Carvedilol 25 mg 05/31/19 17:00 06/03/19 08:47 Coreg PO 25 mg BID-WM ESTHER Administration Cholecalciferol 1,000 units 06/02/19 09:00 06/03/19 08:45 Vitamin D PO 1,000 units DAILY ESTHER Administration Enoxaparin Sodium 30 mg 05/27/19 09:00 06/03/19 08:44 Lovenox SC 30 mg 0900 ESTHER Administration Ergocalciferol 1.25 mg 06/02/19 09:00 06/02/19 09:20 Drisdol PO 1.25 mg Q7DAYS ESTHER Administration Ferrous Sulfate 325 mg 05/28/19 09:00 06/03/19 08:47 Feosol PO 325 mg DAILY ESTHER Administration Folic Acid 1 mg 05/31/19 09:00 06/03/19 08:46 Folvite PO 1 mg DAILY [facility] Administration Lisinopril/HCTZ 1 tab 05/29/19 09:00 06/03/19 08:48 Prinizide 20-12.5 PO 1 tab DAILY [facility] Administration Hydralazine HCl 50 mg 05/30/19 15:00 06/03/19 08:46 Apresoline PO 50 mg TID [facility] Administration Isosorbide Dinitrate 20 mg 05/30/19 09:00 06/03/19 08:48 Isordil PO 20 mg TID ESTHER Administration Levetiracetam 500 mg 05/31/19 21:00 06/03/19 08:46 Keppra PO 500 mg BID ESTHER Administration Pantoprazole Sodium 40 mg 05/28/19 09:00 06/03/19 08:47 Protonix PO 40 mg BID [facility] Administration Sertraline HCl 100 mg 05/29/19 09:00 06/03/19 08:46 Zoloft PO 100 mg DAILY [facility] Administration Sodium Chloride 10 ml 05/28/19 21:00 06/03/19 08:48 Flush - Normal Saline IVF 10 ml Q12HR ESTHER Administration Spironolactone 25 mg 05/29/19 09:00 06/03/19 08:48 Aldactone PO 25 mg DAILY [facility] Administration Thiamine HCl 100 mg 05/28/19 09:00 06/03/19 08:47 Thiamine PO 100 mg DAILY ESTHER Administration - Exam Neck: supple, symmetric Heart: RRR, no murmur Respiratory: CTAB, no wheezes Gastrointestinal: soft, non-tender, non-distended Hosp A/P (1) Aspiration pneumonia Code(s): J69.0 - PNEUMONITIS DUE TO INHALATION OF FOOD AND VOMIT Status: Acute (2) Metabolic encephalopathy Code(s): G93.41 - METABOLIC ENCEPHALOPATHY Status: Acute (3) Pancytopenia Code(s): D61.818 - OTHER PANCYTOPENIA Status: Acute (4) Severe protein-energy malnutrition Code(s): E43 - UNSPECIFIED SEVERE PROTEIN-CALORIE MALNUTRITION Status: Acute (5) Alcohol abuse Code(s): F10.10 - ALCOHOL ABUSE, UNCOMPLICATED Status: Chronic (6) Hypertension Code(s): I10 - ESSENTIAL (PRIMARY) HYPERTENSION Status: Chronic Qualifiers: (7) Seizure disorder Code(s): G40.909 - EPILEPSY, UNSP, NOT INTRACTABLE, WITHOUT STATUS EPILEPTICUS Status: Chronic - Plan will start pt on Augmentin. will need some rehab. pt on ciwa protocol. 06/01 pt on abx, will replace electrolytes. family wants pt to go to snf. ca19- 9 normal. will monitor. 06/02 continue current tx awaiting discharge to snf. updated pt's mother
[2019-06-03 12:40] VITALS: BMI 18.3
[2019-06-03] MEDS: Atorvastatin Calcium 10 MG TAB PO SCH (21:13)
[2019-06-04] MEDS: hydrALAZINE 25 MG TAB PO SCH ×2 (06:29→15:15)
[2019-06-04] MEDS: Enoxaparin Sodium 30 MG/0.3 ML SYRINGE SC SCH (09:16)
[2019-06-04] MEDS: Cholecalciferol (Vitamin D3) 400 UNITS TAB PO SCH (09:16)
[2019-06-04] MEDS: carBAMazepine 100 mg Chewable Tablet PO SCH (09:17)
[2019-06-04] MEDS: Amoxicillin/Potassium Clav 875 MG TAB PO SCH (09:17)
[2019-06-04] MEDS: Ferrous Sulfate 325 MG TAB PO SCH (09:17)
[2019-06-04] MEDS: Carvedilol 25 MG TAB PO SCH ×2 (09:17→16:48)
--- NOTE | 2019-06-04 09:17 | PDOC.HOSPP ---
- Subjective Encounter Date: 06/03/19 Encounter Time: 10:00 Subjective: pt up in bed no complains - Objective Vital Signs & Weight: Vital Signs (12 hours) Temp Pulse Resp BP Pulse Ox 06/04/19 07:23 77 14 99 06/04/19 07:21 97.6 F 77 18 161/86 H 97 06/04/19 05:28 174/89 H 06/04/19 04:00 98.3 F 88 20 170/102 H 94 L 06/04/19 00:39 70 12 06/03/19 23:51 97.7 F 72 20 118/75 95 Weight Admit Weight 100 lb 4.965 oz Weight 113 lb 1.6 oz Most Recent Monitor Data Heart Rate from ECG 76 NIBP 137/80 NIBP BP-Mean 99 Respiration from ECG 13 SpO2 100 I&O: 06/03/19 06/04/19 06/05/19 06:59 06:59 06:59 Intake Total 1210 1700 Balance 1210 1700 Result Diagrams: 06/02/19 06:49 06/01/19 05:13 Hospitalist ROS - Review of Systems Respiratory: denies: cough, dry, shortness of breath, hemoptysis, SOB with excertion, pleuritic pain, sputum, wheezing, other Cardiovascular: denies: chest pain, palpitations, orthopnea, paroxysmal noc. dyspnea, edema, light headedness, other Gastrointestinal: denies: nausea, vomiting, abdominal pain, diarrhea, constipation, melena, hematochezia, other - Medication Medications: Active Medications Generic Name Dose Route Start Last Admin Trade Name Freq PRN Reason Stop Dose Admin Acetaminophen 650 mg 05/26/19 22:52 06/01/19 20:36 Tylenol PO 650 mg Q4H PRN Administration Headache/Fever/Mild Pain (1-3) Albuterol/Ipratropium 3 ml 05/27/19 13:00 06/04/19 07:23 Duoneb NEB 3 ml [id number] ESTHER Administration Amoxicillin/Clavulanate Potassium 875 mg 05/31/19 21:00 06/03/19 21:13 Augmentin PO 875 mg Q12HR ESTHER Administration Atorvastatin Calcium 10 mg 05/29/19 21:00 06/03/19 21:13 Lipitor PO 10 mg HS ESTHER Administration Carbamazepine 150 mg 05/28/19 09:00 06/03/19 08:45 Tegretol PO 150 mg DAILY ESTHER Administration Carvedilol 25 mg 05/31/19 17:00 06/03/19 16:21 Coreg PO 25 mg BID-WM ESTHER Administration Cholecalciferol 1,000 units 06/02/19 09:00 06/03/19 08:45 Vitamin D PO 1,000 units DAILY ESTHER Administration Enoxaparin Sodium 30 mg 05/27/19 09:00 06/03/19 08:44 Lovenox SC 30 mg 0900 ESTHER Administration Ergocalciferol 1.25 mg 06/02/19 09:00 06/02/19 09:20 Drisdol PO 1.25 mg Q7DAYS ESTHER Administration Ferrous Sulfate 325 mg 05/28/19 09:00 06/03/19 08:47 Feosol PO 325 mg DAILY ESTHER Administration Folic Acid 1 mg 05/31/19 09:00 06/03/19 08:46 Folvite PO 1 mg DAILY ESTHER Administration Lisinopril/HCTZ 1 tab 05/29/19 09:00 06/03/19 08:48 Prinizide 20-12.5 PO 1 tab DAILY [facility] Administration Hydralazine HCl 50 mg 05/30/19 15:00 06/04/19 06:29 Apresoline PO 50 mg TID [facility] Administration Isosorbide Dinitrate 20 mg 05/30/19 09:00 06/03/19 21:13 Isordil PO 20 mg TID ESTHER Administration Levetiracetam 500 mg 05/31/19 21:00 06/03/19 21:13 Keppra PO 500 mg BID ESTHER Administration Pantoprazole Sodium 40 mg 05/28/19 09:00 06/03/19 21:13 Protonix PO 40 mg BID [facility] Administration Sertraline HCl 100 mg 05/29/19 09:00 06/03/19 08:46 Zoloft PO 100 mg DAILY [facility] Administration Sodium Chloride 10 ml 05/28/19 21:00 06/03/19 21:13 Flush - Normal Saline IVF 10 ml Q12HR ESTHER Administration Spironolactone 25 mg 05/29/19 09:00 06/03/19 08:48 Aldactone PO 25 mg DAILY [facility] Administration Thiamine HCl 100 mg 05/28/19 09:00 10/15/19 08:47 Thiamine PO 100 mg DAILY ESTHER Administration - Exam Neck: supple, symmetric Heart: RRR, no murmur, no gallops Respiratory: CTAB, no wheezes Gastrointestinal: soft, non-tender, non-distended Hosp A/P (1) Aspiration pneumonia Code(s): J69.0 - PNEUMONITIS DUE TO INHALATION OF FOOD AND VOMIT Status: Acute (2) Metabolic encephalopathy Code(s): G93.41 - METABOLIC ENCEPHALOPATHY Status: Acute (3) Pancytopenia Code(s): D61.818 - OTHER PANCYTOPENIA Status: Acute (4) Severe protein-energy malnutrition Code(s): E43 - UNSPECIFIED SEVERE PROTEIN-CALORIE MALNUTRITION Status: Acute (5) Alcohol abuse Code(s): F10.10 - ALCOHOL ABUSE, UNCOMPLICATED Status: Chronic (6) Hypertension Code(s): I10 - ESSENTIAL (PRIMARY) HYPERTENSION Status: Chronic Qualifiers: (7) Seizure disorder Code(s): G40.909 - EPILEPSY, UNSP, NOT INTRACTABLE, WITHOUT STATUS EPILEPTICUS Status: Chronic - Plan will start pt on Augmentin. will need some rehab. pt on ciwa protocol. 06/01 pt on abx, will replace electrolytes. family wants pt to go to snf. ca19- 9 normal. will monitor. 06/02 continue current tx awaiting discharge to snf. updated pt's mother 06/03 waiting for placement, pt has her life vest on.
[2019-06-04] MEDS: Lisinopril/Hydrochlorothiazide 20 mg/12.5 mg Tablet PO SCH (09:18)
[2019-06-04] MEDS: Thiamine 100 MG TAB PO SCH (09:18)
[2019-06-04] MEDS: Isosorbide Dinitrate 20 MG TAB PO SCH ×2 (09:18→15:15)
[2019-06-04] MEDS: levETIRAcetam 500 MG TAB PO SCH (09:18)
[2019-06-04] MEDS: Folic Acid 1 MG TAB PO SCH (09:18)
[2019-06-04] MEDS: Spironolactone 25 MG TAB PO SCH (09:19)
[2019-06-04 10:18] LABS: Anion Gap 15 mmol/L (10-20); BUN (Urea Nitrogen) 28 mg/dL (9.8-20.1); Calc. Creatinine Clearance 23 mL/min (70-130); Calcium 8.2 mg/dL (7.8-10.44); Carbon Dioxide 14 mmol/L (23-31); Chloride 110 mmol/L (98-107); Estimated GFR-MDRD 31; Sodium 135 mmol/L (136-145)
[2019-06-04 10:23] LABS: Glucose 57 mg/dL (80-115)
[2019-06-04] MEDS ORDERED: Dextrose 50% Abboject 50 ML SYRINGE SLOW IVP PRN (10:39)
[2019-06-04 11:43] LABS: #Eosinphils 0.1 thou/uL (0.0-0.7); #Lymphocytes 0.5 thou/uL (1.20-3.40); #Monocytes 0.4 thou/uL (0.11-0.59); %Basophils 0.5 % (0.0-1.0); %Eosinophils 0.6 % (0.0-10.0); %Lymphocytes 5.8 % (21.0-51.0); %Monocytes 4.7 % (0.0-10.0); %Neutrophils 88.4 % (42.0-75.0); Hemoglobin 9.3 g/dL (12.0-16.0); MDiff Complete? YES; Macrocytosis SLIGHT = 6-15 cells (100X) (0-5/hpf); Mean Corpuscular HGB CONC 32.9 g/dL (32.0-36.0); Mean Corpuscular Hemoglobin 35.2 pg (27.0-31.0); Platelet Count 241 thou/uL (130-400); Platelet Morphology Comment Appears Adequate; RBC Distribution Width 18.4 % (11.5-14.5); Red Blood Cell (RBC) Count 2.65 mill/uL (4.20-5.40); White Blood Cell (WBC) Count 7.9 thou/uL (4.8-10.8)
[2019-06-04 12:43] VITALS: TEMP 98.6
[2019-06-04 15:20] VITALS: BP 108/71
--- NOTE | 2019-06-04 21:41 | DIS ---
DATE OF ADMISSION: 05/26/2019 DATE OF DISCHARGE: 06/04/2019 DISCHARGE DIAGNOSES: As of the followin. Aspiration pneumonia. 2. Possible sepsis. 3. Metabolic encephalopathy. 4. Severe protein energy malnutrition. 5. Alcohol abuse. 6. Hypertension. 7. Seizure disorder. HOSPITAL COURSE: The patient is a 68-year-old female, who was admitted to our hospital after having a procedure done at [facility]. She had an ultrasound guided EUS for possible pancreatic cancer. She was then sent home and then started having change in mental status, so she was brought in here to our hospital for further evaluation. She did have a low-grade temperature. She met the sepsis and SIRS criteria. She was initially started on broad-spectrum antibiotics and was admitted into the IMCU. She also had an echocardiogram which indicated an EF of 20% to 25% with dilated IVC. She was seen by Cardiology and underwent a LifeVest. She was also seen by Medical Oncology for pancreatic mass and also pancytopenia. She did have a pancreatic mass measures 2.4 x 2.[address] scan and she was seen by Dr. Ledbetter in [place] for endoscopic biopsy, and that is why she had the EUS done at [facility]. Her CN-99 was normal. The patient continued to improve throughout the hospital stay. She was also watched for alcohol withdrawal. The patient will follow up with Oncology as an outpatient. Her hospital course was complicated with some hypoglycemia. The patient is not a diabetic. However, she has not been eating very much. She has been encouraged to eat more and also recommended to check her blood sugars more often. HOME MEDICATIONS: Her home medications will be as the followin. Thiamine 100 mg daily. 2. Augmentin 875-125 every 12 hours for next couple of days. 3. Atorvastatin 10 mg daily. 4. Coreg 25 mg twice a day. 5. Folic acid and vitamin D. 6. Hydralazine 25 mg t.i.d. 7. Isosorbide 20 mg t.i.d. 8. Keppra 500 mg b.i.d. 9. Pantoprazole 40 mg daily. 10. Spironolactone 25 mg daily. 11. Lisinopril-hydrochlorothiazide 1 tab p.o. daily. 12. Carbamazepine 1.5 tab p.o. daily. PHYSICAL EXAMINATION: VITAL SIGNS: Temperature 98.6, pulse 72, respirations 16, O2 saturation 97% on room air, and blood pressure 108/71. GENERAL: She is awake, alert, and oriented x3. Does not appear in distress. CV: S1, S2 present. No murmurs, rubs, or gallops. ABDOMEN: Soft, nontender. Bowel sounds are present x2. Again, she will be discharged to a rehab facility. She has a LifeVest on. She will follow up with Cardiology and also with her primary care doctor. She has been advised against alcohol abuse. Her cardiomegaly was most likely thought to be attributed to alcohol abuse. Job ID: [id number]
--- NOTE | 2019-06-05 08:28 | PQF ---
DIONISIO VALADEZ KARISHMA [id number] [facility]-268 [id number] CLINICAL DOCUMENTATION CLARIFICATION FORM: POST DISCHARGE Addendum to original discharge summary date: ____ Late entry note date: __ DATE:06-05-2019 ATTN:Katie Nguyen Please exercise your independent, professional judgment in responding to the clarification form. Clinical indicators are provided on the bottom of this form for your review Can you please specify if the aspiration pneumonia is a complication of intubation? Please check appropriate box(s): [ ] Aspiration Pneumonia as Postoperative complication of intubation [ ] Aspiration Pneumonia not a Postoperative complication of intubation [ ] Other diagnosis please specify: [ ] Unable to determine For continuity of documentation, please document condition throughout progress notes and discharge summary. Thank You. CLINICAL INDICATORS: H&P p1 05/26-Reportedly, the patient undergone for the pancreatic cancer, a lung biposy through endoscopic ultrasound today and is quite wide H&P p1 05/26-The patient was normal bedore and after the procedure H&P p1 05/26-The patient after she got home, strated developing altered mental status H&P p3 05/26-Possible postobstructive pneumonia related to perihilar mass as seen on the chest x-ray or possibly pneumonia secondary to recent intubation RISK FACTORS: H&P p1 05/26-68 years old H&P p1 05/26-Seizure disorder H&P p1 05/26-Pancreatic cancer H&P p1 05/26-s/p Lung biopsy H&P p3 05/26-Sepsis Consult p3 05/28-Postprocedural Pneumonia TREATMENTS: 10/27/2006-IV ZOSYN 10/27/2006-IV Vancomycin Hospitalist PN p4 05/27-Consult speech for swallo evaluation (This form is maintained as a part of the permanent medical record) 2014 [employer]. All Rights Reserved Penny [email or web address] [not provided] MTDD
== END 2019-06-04 17:25 | DRG 871 ==
LOC: ERS 19:34 → ERHOLD 23:27 → CCU 05-27 01:51 → IMCU/EMU 05-27 17:20 → 2NO 06-01 21:42
PROVIDERS: ADMIT Hospitalist; ATTEND Hospitalist
PROC: 3E0234Z Introduction of Serum, Toxoid and Vaccine into Muscle, Percutaneous Approach (ICD-10-PCS; principal; 2019-05-27)
PROC: 3E02340 Introduction of Influenza Vaccine into Muscle, Percutaneous Approach (ICD-10-PCS; 2019-05-27)
PROC: 06HY33Z Insertion of Infusion Device into Lower Vein, Percutaneous Approach (ICD-10-PCS; 2019-05-27)
DX: A41.9 Sepsis, unspecified organism (principal); J69.0 Pneumonitis due to inhalation of food and vomit; G92 Toxic encephalopathy; E43 Unspecified severe protein-calorie malnutrition; C25.9 Malignant neoplasm of pancreas, unspecified; Z68.1 Body mass index [BMI] 19.9 or less, adult; D61.818 Other pancytopenia; E87.3 Alkalosis; N17.9 Acute kidney failure, unspecified; E87.2 Acidosis; I13.0 Hypertensive heart and chronic kidney disease with heart failure and stage 1 through stage 4 chronic kidney disease, or unspecified chronic kidney disease; I50.32 Chronic diastolic (congestive) heart failure; I42.9 Cardiomyopathy, unspecified; R64 Cachexia; G40.909 Epilepsy, unspecified, not intractable, without status epilepticus; E83.42 Hypomagnesemia; N18.3 Chronic kidney disease, stage 3 (moderate); E03.9 Hypothyroidism, unspecified; Z96.642 Presence of left artificial hip joint; E16.2 Hypoglycemia, unspecified; F17.210 Nicotine dependence, cigarettes, uncomplicated; F10.10 Alcohol abuse, uncomplicated; J44.9 Chronic obstructive pulmonary disease, unspecified; D63.1 Anemia in chronic kidney disease; Z90.710 Acquired absence of both cervix and uterus; Z79.899 Other long term (current) drug therapy; Z88.8 Allergy status to other drugs, medicaments and biological substances; Z23 Encounter for immunization
CPT/HCPCS: 36415; 36416; 36430; 36556; 51702; 70450; 71045; 74177; 80048; 80053; 80076; 80202; 80306; 80307; 81003; 82140; 82306; 82550; 82607; 82805; 83010; 83605; 83690; 83735; 84436; 84443; 84484; 85025; 85362; 85379; 85384; 85610; 85730; 86301; 86850; 86900; 86901; 87040; 87086; 93005; 93306; 93798; 94640; 96361; 96365; 96367; 96375; J0131; J1650; J1953; J2060; J2543; J2930; J3370; J3475; J3490; J7050; J7070; J7620; P9016; Q9966

== ENCOUNTER 2019-06-13 16:52 | Inpatient (IN) | payer MEDICARE ==
[2019-06-13 17:50] LABS: #Eosinphils 0.1 thou/uL (0.0-0.7); #Lymphocytes 0.6 thou/uL (1.20-3.40); #Monocytes 0.2 thou/uL (0.11-0.59); #Neutrophils 2.2 thou/uL (1.40-6.50); %Basophils 0.2 % (0.0-1.0); %Eosinophils 2.7 % (0.0-10.0); %Lymphocytes 18.8 % (21.0-51.0); %Monocytes 6.5 % (0.0-10.0); %Neutrophils 71.9 % (42.0-75.0); Hemoglobin 7.3 g/dL (12.0-16.0); Mean Corpuscular HGB CONC 32.5 g/dL (32.0-36.0); Mean Corpuscular Hemoglobin 35.4 pg (27.0-31.0); Mean Platelet Volume 6.7 fL (7.4-10.4); Platelet Count 177 thou/uL (130-400); RBC Distribution Width 17.5 % (11.5-14.5); Red Blood Cell (RBC) Count 2.07 mill/uL (4.20-5.40); White Blood Cell (WBC) Count 3.1 thou/uL (4.8-10.8)
[2019-06-13 17:56] LABS: INR-International Normal Ratio 1.1; PTT 41.2 SEC (22.9-36.1)
[2019-06-13 18:09] LABS: ALT (SGPT) 9 U/L (8-55); AST (SGOT) 17 U/L (5-34); Albumin 2.8 g/dL (3.4-4.8); Alkaline Phosphatase 89 U/L (40-110); Anion Gap 13 mmol/L (10-20); BUN (Urea Nitrogen) 29 mg/dL (9.8-20.1); Bilirubin, Total 0.2 mg/dL (0.2-1.2); Calc. Creatinine Clearance 0 mL/min (70-130); Calcium 8.7 mg/dL (7.8-10.44); Carbon Dioxide 18 mmol/L (23-31); Chloride 116 mmol/L (98-107); Estimated GFR-MDRD 32; Globulin 3.3 g/dL (2.4-3.5); Glucose 79 mg/dL (80-115); Potassium 4.5 mmol/L (3.5-5.1); Protein, Total 6.1 g/dL (6.0-8.3); Sodium 142 mmol/L (136-145)
[2019-06-13] MEDS ORDERED: Pantoprazole 40 MG VIAL ONE (18:34)
[2019-06-13] MEDS ORDERED: Senokot S 8.6-50 MG TAB PO PRN (20:23)
[2019-06-13] MEDS ORDERED: Acetaminophen 325 MG TAB PO PRN (20:23)
[2019-06-13 20:47] LABS: Iron 57 ug/dL (50-170); Iron Binding Capacity, Total 175 mcg/dL (265-497)
[2019-06-13] MEDS ORDERED: Amoxicillin/Potassium Clav 875 MG TAB PO SCH (22:30)
[2019-06-13] MEDS ORDERED: Isosorbide Dinitrate 20 MG TAB PO SCH (23:00)
[2019-06-13] MEDS ORDERED: hydrALAZINE 25 MG TAB PO SCH (23:00)
[2019-06-13] MEDS ORDERED: levETIRAcetam 500 MG TAB PO SCH (23:00)
--- NOTE | 2019-06-13 23:11 | HP ---
PRIMARY CARE PROVIDER: Dr. Simpson. CHIEF COMPLAINT: Black stools. HISTORY OF PRESENT ILLNESS: Ms. Oconnell is a pleasant 68-year-old lady, who was seen at [facility] on June 13, 2019, after she was transferred to the emergency room from [facility]. She was hospitalized at this facility from May 26 to of this year for aspiration pneumonia, sepsis, metabolic encephalopathy, and severe protein energy malnutrition. She also reports that she was recently diagnosed with pancreatic cancer, but it was felt too small to treat. She also reports having black stools over the last 2 or 3 days. She denies any lightheadedness. She denies any chest pain. She denies any abdominal pain. She denies any nausea or vomiting. She reports that her hemoglobin was found to be low, and she was therefore sent to the emergency room. REVIEW OF SYSTEMS: All systems were reviewed and found to be negative except for the pertinent positives mentioned above. PAST MEDICAL HISTORY: Hypertension; seizures; cardiomyopathy; anemia; pancreatic cancer; and chronic kidney disease, stage 3. PAST SURGICAL HISTORY: Hysterectomy and left hip replacement. SOCIAL HISTORY: The patient denies alcohol use. She smokes half pack of cigarettes a day. She denies any recreational drug use. FAMILY HISTORY: The patient denies any family history of premature coronary artery disease. CODE STATUS: Code status was discussed. The patient is full code. ALLERGIES: GADOLINIUM-CONTAINING CONTRAST MEDIA. CURRENT MEDICATIONS: As dictated by Dr. Quintero in her discharge summary dated June 04, 2019. PHYSICAL EXAMINATION: GENERAL: On examination, Ms. Oconnell is awake and alert, not in acute distress. She appears malnourished. VITAL SIGNS: Blood pressure is 190/105, pulse 73, respiratory rate 18, and oxygen saturation 98% on room air. She is afebrile. EYES: No scleral icterus, no conjunctival pallor. ENT: Moist mucosal membranes. No oropharyngeal erythema or exudates. NECK: Supple, nontender, trachea is midline. RESPIRATORY: Accessory muscles of breathing are not active. Chest wall movements are symmetric bilaterally. Lungs are clear to auscultation without wheeze, rhonchi, or crepitations. CARDIOVASCULAR: S1 and S2 are heard, regular. Peripheral pulses palpable. ABDOMEN: Soft, nontender, bowel sounds heard. NEUROLOGIC: Cranial nerves 2 through 12 are intact. MUSCULOSKELETAL: Power is 5/5 in all 4 extremities. SKIN: No rashes or subcutaneous nodules. LYMPHATIC: No cervical lymphadenopathy. PSYCHIATRIC: Normal mood, normal affect, the patient is oriented to person, place, and time. LABORATORY DATA: Ms. Oconnell's labs and investigations were reviewed. She has normal sodium, normal potassium, elevated creatinine of 1.91, creatinine was 1.96 on June 04, 2019, elevated blood urea nitrogen of 29, decreased TIBC of 175, normal iron, decreased albumin of , otherwise unremarkable LFTs, decreased white count of 3100, decreased hemoglobin of 7.3, hemoglobin was 9.3 on June 04, 2019, and normal platelet count. ASSESSMENT AND PLAN: Ms. Oconnell is a pleasant 68-year-old lady, who was seen at [facility] on June 13, 2019. Her problem list includes: 1. Acute blood loss anemia: Ms. Oconnell is presenting with acute blood loss anemia. She will be admitted to the hospital for a suspected upper gastrointestinal bleed. She will be started on Protonix drip. Hemoglobin will be rechecked. GI Service will be consulted for opinion and help with further management. 2. Chronic kidney disease, stage 3: Stable. 3. Hypertension: We will resume her home medications, monitor vital signs and titrate antihypertensives as needed. 4. Seizure disorder: We will continue home medications including Keppra and carbamazepine. 5. Tobacco abuse: The patient was counseled regarding tobacco cessation. We will start her on nicotine replacement therapy. Many thanks for allowing me to participate in your patient's care. Please feel free to contact me with any questions or concerns. LEVEL OF RISK: Moderate. LEVEL OF COMPLEXITY: Moderate. Job ID: [id number]
[2019-06-13] MEDS: Nicotine 14 MG PATCH TD SCH (23:51)
[2019-06-14] MEDS: Pantoprazole 80 MG, Admixture Fee 1 EACH in Sodium Chloride 0.9% 100 ML IVP SCH ×2 (00:09→11:00)
[2019-06-14 04:53] LABS: #Eosinphils 0.1 thou/uL (0.0-0.7); #Lymphocytes 0.6 thou/uL (1.20-3.40); #Monocytes 0.3 thou/uL (0.11-0.59); #Neutrophils 2.4 thou/uL (1.40-6.50); %Basophils 0.3 % (0.0-1.0); %Eosinophils 2.5 % (0.0-10.0); %Lymphocytes 18.4 % (21.0-51.0); %Monocytes 8.6 % (0.0-10.0); %Neutrophils 70.2 % (42.0-75.0); Hemoglobin 8.8 g/dL (12.0-16.0); Mean Corpuscular HGB CONC 32.8 g/dL (32.0-36.0); Mean Corpuscular Hemoglobin 33.6 pg (27.0-31.0); Mean Platelet Volume 7.2 fL (7.4-10.4); Platelet Count 189 thou/uL (130-400); RBC Distribution Width 19.1 % (11.5-14.5); Red Blood Cell (RBC) Count 2.62 mill/uL (4.20-5.40); White Blood Cell (WBC) Count 3.4 thou/uL (4.8-10.8)
[2019-06-14 05:45] LABS: ALT (SGPT) 7 U/L (8-55); AST (SGOT) 17 U/L (5-34); Albumin 2.7 g/dL (3.4-4.8); Alkaline Phosphatase 80 U/L (40-110); Anion Gap 12 mmol/L (10-20); BUN (Urea Nitrogen) 27 mg/dL (9.8-20.1); Bilirubin, Total 0.5 mg/dL (0.2-1.2); Calc. Creatinine Clearance 26 mL/min (70-130); Calcium 8.8 mg/dL (7.8-10.44); Carbon Dioxide 18 mmol/L (23-31); Chloride 117 mmol/L (98-107); Estimated GFR-MDRD 35; Globulin 3.1 g/dL (2.4-3.5); Glucose 68 mg/dL (80-115); Potassium 4.4 mmol/L (3.5-5.1); Protein, Total 5.8 g/dL (6.0-8.3); Sodium 143 mmol/L (136-145)
[2019-06-14] MEDS ORDERED: hydrALAZINE 20 MG/ML VIAL SLOW IVP PRN (07:58)
[2019-06-14] MEDS ORDERED: Amlodipine 10 MG TAB PO SCH (08:00)
[2019-06-14] MEDS: Sodium Bicarbonate Tab 325 MG TAB PO SCH ×3 (08:39→22:28)
[2019-06-14] MEDS: carBAMazepine 100 mg Chewable Tablet PO SCH (08:40)
[2019-06-14] MEDS: levETIRAcetam 500 MG TAB PO SCH ×2 (08:40→22:29)
[2019-06-14] MEDS: Ferrous Sulfate 325 MG TAB PO SCH (08:41)
[2019-06-14] MEDS: Folic Acid 1 MG TAB PO SCH (08:41)
[2019-06-14] MEDS: Carvedilol 25 MG TAB PO SCH ×2 (08:41→16:06)
[2019-06-14] MEDS: Thiamine 100 MG TAB PO SCH (08:41)
[2019-06-14] MEDS: Isosorbide Dinitrate 20 MG TAB PO SCH ×3 (08:41→22:29)
[2019-06-14] MEDS: hydrALAZINE 25 MG TAB PO SCH ×3 (08:41→22:28)
[2019-06-14] MEDS ORDERED: Spironolactone 25 MG TAB PO SCH (09:00)
[2019-06-14] MEDS ORDERED: Lisinopril/Hydrochlorothiazide 20 mg/12.5 mg Tablet PO SCH (09:00)
[2019-06-14] MEDS ORDERED: Amoxicillin/Potassium Clav 875 MG TAB PO SCH (09:00)
[2019-06-14] MEDS ORDERED: Stress 600 With Zinc 1 TAB PO SCH (09:00)
[2019-06-14] MEDS ORDERED: Pantoprazole 40 MG VIAL IVP SCH (09:00)
[2019-06-14] MEDS: Stress 600 With Zinc 1 TAB PO SCH (09:07)
--- NOTE | 2019-06-14 12:03 | PDOC.HOSPP ---
- Subjective Encounter Date: 06/14/19 Encounter Time: 09:01 Subjective: 68 y/o female with HTN, seizure, cardiomyopathy, PCM and recent diagnosis of pancreatic cancer admitted from nursing due to black stools. Patient denied abdominal pain, nausea, vomiting or change in appetite. Was found to have acute drop in hb and was transfused 1 PRBC. No new complaint. - Objective Vital Signs & Weight: Vital Signs (12 hours) Temp Pulse Resp BP Pulse Ox 06/14/19 11:03 98.1 F 70 16 153/84 H 96 06/14/19 07:18 98.4 F 75 12 180/94 H 95 06/14/19 04:00 97.9 F 93 18 175/100 H 98 Weight Admit Weight 115 lb 1.301 oz Weight 115 lb 1.301 oz I&O: 06/13/19 06/14/19 06/15/19 06:59 06:59 06:59 Intake Total 300 Output Total 0 Balance 300 Result Diagrams: 06/14/19 04:06 06/14/19 04:06 Hospitalist ROS - Medication Medications: Active Medications Generic Name Dose Route Start Last Admin Trade Name Freq PRN Reason Stop Dose Admin Carbamazepine 150 mg 06/14/19 09:00 06/14/19 08:40 Tegretol PO 150 mg DAILY ESTHER Administration Carvedilol 25 mg 06/14/19 08:00 06/14/19 08:41 Coreg PO 25 mg BID-WM ESTHER Administration Cholecalciferol 1,000 units 06/14/19 09:00 06/14/19 08:41 Vitamin D3 PO 1,000 units DAILY ESTHER Administration Ferrous Sulfate 325 mg 06/14/19 08:00 06/14/19 08:41 Feosol PO 325 mg QAM-WM ESTHER Administration Folic Acid 1 mg 06/14/19 09:00 06/14/19 08:41 Folvite PO 1 mg DAILY ESTHER Administration Hydralazine HCl 25 mg 06/14/19 09:00 06/14/19 08:41 Apresoline PO 25 mg TID ESTHER Administration Pantoprazole Sodium 80 mg/ 100 mls @ 10 mls/hr 06/13/19 22:30 06/14/19 11:00 Miscellaneous Medication 1 IVP 100 mls each/ Sodium Chloride INF ESTHER Administration Isosorbide Dinitrate 20 mg 06/14/19 09:00 06/14/19 08:41 Isordil PO 20 mg TID ESTHER Administration Levetiracetam 500 mg 06/14/19 09:00 06/14/19 08:40 Keppra PO 500 mg BID ESTHER Administration Multivitamins/Zinc 1 tab 06/14/19 09:00 06/14/19 09:07 Stress 600 With Zinc PO 1 tab DAILY ESTHER Administration Nicotine 14 mg 06/13/19 23:00 06/13/19 23:51 Nicoderm Patch TD Not Given Q24HR ESTHER Sertraline HCl 50 mg 06/14/19 09:00 06/14/19 08:40 Zoloft PO 50 mg DAILY ESTHER Administration Sodium Bicarbonate 650 mg 06/14/19 09:00 06/14/19 08:39 Bicarbonate, Sodium PO 650 mg TID ESTHER Administration Thiamine HCl 100 mg 06/14/19 09:00 06/14/19 08:41 Thiamine PO 100 mg DAILY ESTHER Administration - Exam General Appearance: awake alert General - other findings: cachetic Eye: anicteric sclera ENT: normocephalic atraumatic Neck: symmetric, no JVD Heart: RRR Respiratory: no ronchi, normal chest expansion, no tachypnea Respiratory - other findings: fair air entry bilaterally Gastrointestinal: soft, non-tender, non-distended, normal bowel sounds Extremities: no cyanosis, no edema Neurological: cranial nerve grossly intact, no focal deficits Musculoskeletal: diffuse muscle atrophy Psychiatric: normal affect, A&O x 3 Hosp A/P (1) Acute on chronic anemia Code(s): D64.9 - ANEMIA, UNSPECIFIED Status: Acute (2) GI bleeding Code(s): K92.2 - GASTROINTESTINAL HEMORRHAGE, UNSPECIFIED Status: Suspected (3) Cardiomyopathy Code(s): I42.9 - CARDIOMYOPATHY, UNSPECIFIED Status: Acute (4) Pancreatic cancer Status: Acute (5) CAD (coronary artery disease) Code(s): I25.10 - ATHSCL HEART DISEASE OF [place] CORONARY ARTERY W/O ANG PCTRS Status: Chronic (6) CKD (chronic kidney disease) stage 3, GFR 30-59 ml/min Code(s): N18.3 - CHRONIC KIDNEY DISEASE, STAGE 3 (MODERATE) Status: Chronic (7) Hypertension Code(s): I10 - ESSENTIAL (PRIMARY) HYPERTENSION Status: Chronic Qualifiers: (8) Hypothyroidism Code(s): E03.9 - HYPOTHYROIDISM, UNSPECIFIED Status: Chronic Qualifiers: (9) Macrocytic anemia Code(s): D53.9 - NUTRITIONAL ANEMIA, UNSPECIFIED Status: Chronic (10) Protein-calorie malnutrition, severe Code(s): E43 - UNSPECIFIED SEVERE PROTEIN-CALORIE MALNUTRITION Status: Chronic (11) Seizure disorder Code(s): G40.909 - EPILEPSY, UNSP, NOT INTRACTABLE, WITHOUT STATUS EPILEPTICUS Status: Chronic (12) Tobacco abuse Code(s): Z72.0 - TOBACCO USE Status: Chronic (13) High anion gap metabolic acidosis Code(s): E87.2 - ACIDOSIS Status: Resolved - Plan GI bleeding is suspected but seem unlikely with negative occult blood x 2. black stool may be related to diet and pancreatic disease. Continue PPI and await GI evaluation. Start ensure clear. Start alkali therapy for metabolic acidosis and CKD. Restart antihypertensives and adjust to get adequate BP control. Follow H/h and transfuse as needed. Follow renal function. Will advance diet if no endoscopy is planned by GI patinet may benefit from MATEUS.
[2019-06-14] MEDS ORDERED: PROPOFOL 200 MG/20 ML VIAL ONE (15:09)
[2019-06-14 18:07] LABS: Hemoglobin 9.3 g/dL (12.0-16.0)
--- NOTE | 2019-06-14 19:07 | OP ---
DATE OF PROCEDURE: 06/14/2019 OPERATIVE PROCEDURE: Esophagogastroduodenoscopy. PREOPERATIVE DIAGNOSES: A 68-year-old black female with history of melena, undergoing EGD. POSTOPERATIVE DIAGNOSES: 1. Normal esophagus. 2. Normal stomach and duodenum , although she gave_ history of black tarry stools. However, her gastric mucosa does appear hypertrophied. DESCRIPTION OF PROCEDURE: The patient was placed on her left lateral position and was given sedation by Anesthesia Department. A Pentax video gastroscope under direct vision was passed down the oropharynx, past the GE junction into the stomach and subsequently into the descending duodenum. The esophageal mucosa appears normal. No varicosities. The GE junction, no pathology. The stomach was completely free of any blood or coffee ground material. However, the gastric mucosa was somewhat hypertrophied. Retroflexion failed to show any pathology in fundus or cardia. The gastric body, gastric antrum, incisura angularis, no lesion seen. The duodenal bulb, descending duodenum, no pathology. The stomach was decompressed and the scope was removed. RECOMMENDATIONS: 1. Discontinue n.p.o. 2. Heart healthy diet. 3. Follow up hemoglobin and hematocrit. Job ID: [id number] [facility]
[2019-06-14] MEDS ORDERED: diphenhydrAMINE 50 MG/ML VIAL IVP PRN (21:26)
--- NOTE | 2019-06-14 21:39 | PDOC.EVN ---
Event Note - Event Note Event Note: Nurse for patient called this evening for patient c/o of itching this evening. EGD did not show any active bleeding. Protonix drip stopped for now to see if this is the culprit for the itching. Pepcid started for AM.
[2019-06-14] MEDS: Atorvastatin Calcium 10 MG TAB PO SCH (22:28)
[2019-06-14] MEDS: Nicotine 14 MG PATCH TD SCH (22:28)
[2019-06-14] MEDS ORDERED: Clotrimazole 2% 3 Day Vag Cr 22.2 GM TUBE VAG PRN (23:47)
[2019-06-14] MEDS ORDERED: Hydrocortisone 1% Cream 30 GM TUBE TOP PRN (23:51)
[2019-06-15 05:50] LABS: Hemoglobin 9.1 g/dL (12.0-16.0); Mean Corpuscular HGB CONC 34.2 g/dL (32.0-36.0); Mean Corpuscular Hemoglobin 34.8 pg (27.0-31.0); Mean Platelet Volume 7.1 fL (7.4-10.4); Platelet Count 192 thou/uL (130-400); RBC Distribution Width 18.4 % (11.5-14.5); Red Blood Cell (RBC) Count 2.61 mill/uL (4.20-5.40)
[2019-06-15 06:00] LABS: Albumin 2.6 g/dL (3.4-4.8); Anion Gap 12 mmol/L (10-20); BUN (Urea Nitrogen) 29 mg/dL (9.8-20.1); BUN/Creatinine Ratio 15.51; Calc. Creatinine Clearance 24 mL/min (70-130); Calcium 8.6 mg/dL (7.8-10.44); Carbon Dioxide 18 mmol/L (23-31); Chloride 116 mmol/L (98-107); Estimated GFR-MDRD 33; Glucose 68 mg/dL (80-115); Potassium 4.2 mmol/L (3.5-5.1); Sodium 142 mmol/L (136-145)
[2019-06-15] MEDS: Thiamine 100 MG TAB PO SCH (08:29)
[2019-06-15] MEDS: Folic Acid 1 MG TAB PO SCH (08:29)
[2019-06-15] MEDS: hydrALAZINE 25 MG TAB PO SCH ×3 (08:29→20:19)
[2019-06-15] MEDS: carBAMazepine 100 mg Chewable Tablet PO SCH (08:29)
[2019-06-15] MEDS: Ferrous Sulfate 325 MG TAB PO SCH (08:29)
[2019-06-15] MEDS: Isosorbide Dinitrate 20 MG TAB PO SCH ×3 (08:30→20:19)
[2019-06-15] MEDS: Carvedilol 25 MG TAB PO SCH ×2 (08:30→17:50)
[2019-06-15] MEDS: levETIRAcetam 500 MG TAB PO SCH ×2 (08:30→20:21)
[2019-06-15] MEDS: Stress 600 With Zinc 1 TAB PO SCH (08:30)
[2019-06-15] MEDS: Sodium Bicarbonate Tab 325 MG TAB PO SCH ×3 (08:31→20:19)
[2019-06-15] MEDS ORDERED: Famotidine 20 MG TAB PO SCH (09:00)
[2019-06-15] MEDS ORDERED: Amlodipine 10 MG TAB PO SCH (09:00)
[2019-06-15] MEDS: NIFEdipine XL 60 MG TAB PO SCH (09:24)
--- NOTE | 2019-06-15 09:50 | CON ---
DATE OF CONSULTATION: 06/15/2019 SERVICE: Nephrology. REQUESTING PHYSICIAN: Dr. Ayala. REASON FOR CONSULTATION: CKD and hypertension. HISTORY OF PRESENT ILLNESS: A 68-year-old female with known history of hypertension, seizure disorder, cardiomyopathy, protein-calorie malnutrition, and recent diagnosis of pancreatic cancer admitted from long-term due to black stool concerning for GI bleeding. The patient was found to have acute on chronic anemia and was transfused 1 unit of packed red blood cells. The patient has elevated creatinine as well as uncontrolled hypertension and metabolic acidosis, necessitating Nephrology consult. She denied nausea and vomiting and oral intake is acceptable. She denied leg swelling. Still making urine. Admitted to NSAID use. She used to drink alcohol excessively, but currently does not. PAST MEDICAL HISTORY: 1. Hypertension. 2. Seizure disorder. 3. Cardiomyopathy. 4. CKD stage 3. 5. Chronic anemia. 6. Pancreatic cancer. 7. Hypertension. 8. Chronic alcohol abuse. 9. Tobacco abuse disorder. PAST SURGICAL HISTORY: 1. Hysterectomy. 2. Left hip replacement. FAMILY HISTORY: Reviewed, but noncontributory. SOCIAL HISTORY: The patient currently lives in a long-term. Smokes half pack of cigarette per day. Denied recreational drug use. The patient currently does not use alcohol but she is a former heavy user of alcohol. ALLERGIES: GADOLINIUM CONTAINING CONTRAST MEDIA WHICH CAUSED EMESIS. MEDICATIONS: Prior to hospital, medications. 1. Vitamin D3-H2-jjgumh-Q21-Ylxeoct complex one tablet p.o. daily. 2. Carbamazepine 150 mg p.o. daily. 3. Ferrous sulfate 325 mg p.o. daily. 4. Lisinopril hydrochlorothiazide 20/12.5 one tablet p.o. daily. 5. Protonix 40 mg p.o. b.i.d. 6. Sertraline 50 mg p.o. daily. 7. Spironolactone 25 mg p.o. daily. 8. Lipitor 10 mg p.o. daily at bedtime. 9. Carvedilol 25 mg p.o. b.i.d. 10. Cholecalciferol 1000 units p.o. daily. 11. Folic acid 1 mg p.o. daily. 12. Hydralazine 25 mg p.o. t.i.d. 13. Isosorbide dinitrate 20 mg p.o. t.i.d. 14. Keppra 500 mg p.o. b.i.d. 15. Thiamine 100 mg p.o. daily. CURRENT HOSPITAL MEDICATIONS: 1. Nicotine patch 40 mg p.o. transdermal daily. 2. Amlodipine 10 mg p.o. daily. 3. Lipitor 10 mg daily at bedtime. 4. Carbamazepine 150 mg p.o. daily. 5. Carvedilol 25 mg p.o. b.i.d. 6. Cholecalciferol 1000 units p.o. daily. 7. Pepcid 20 mg p.o. b.i.d. 8. Ferrous sulfate 325 mg p.o. daily. 9. Folic acid 1 mg p.o. daily. 10. Hydralazine 25 mg p.o. t.i.d. 11. Isosorbide dinitrate 20 mg t.i.d. 12. Keppra 500 mg p.o. b.i.d. 13. Sertraline 50 mg p.o. daily. 14. Stress-600 with zinc one tablet p.o. daily. 15. Thiamine 100 mg p.o. daily. 16. Acetaminophen p.r.n. as needed. 17. Hydralazine 10 mg slow IV push q.2 hours for acute elevation in blood pressure. REVIEW OF SYSTEMS: 12-point review of system performed was negative other than pertinent positives and negatives included in the history of present illness. PHYSICAL EXAMINATION: VITAL SIGNS: Temperature 98.1, pulse 76, respiratory rate 20, SpO2 of 95% on room air, blood pressure is 184/99. GENERAL: Cachectic female in no obvious distress. Afebrile. Anicteric. Acyanotic. HEENT: Normocephalic, atraumatic. Oral mucosa is moist. NECK: Supple, nontender with no masses. No JVD appreciated. CARDIOVASCULAR: Regular rhythm and rate with normal heart sounds 1 and 2. RESPIRATORY: Good air entry bilaterally with no obvious crackle or rhonchi or use of accessory muscles. GI: Soft, nontender, nondistended with normal bowel sounds. EXTREMITIES: Atrophic, but no edema or erythema. NEUROLOGIC: Conscious, alert, oriented x3 with appropriate mental status. Cranial nerves 2 through 12 are grossly intact. DIAGNOSTIC DATA: CBC showed WBC count of 4.0, hemoglobin of 9.1, MCV of 102, platelet of 192. Renal function panel today showed sodium 142, potassium 4.2, chloride 116, CO2 of 18, BUN 29, creatinine 1.87, glucose 68, calcium 8.6, phosphorus 5.0, albumin 2.6. Renal ultrasound performed in September 2018 showed right kidney measuring 10 x 3.7 x 4.3 and left 9.5 x 6 x 5.4 with no focal renal lesion or hydronephrosis. Review of medical record also showed that the patient had creatinine of 2.7 in August 2018, which improved to a javier of 1.44 on January 23, 2019 and had trended up again to a peak of 2.01 on June 01, 2019. ASSESSMENT: 1. Chronic kidney disease with possible reversible component. 2. Uncontrolled hypertension. 3. Metabolic acidosis: Most likely due to chronic kidney disease. 4. Anemia in chronic kidney disease. 5. Possible gastrointestinal bleeding. 6. Pancreatic cancer. 7. Cardiomyopathy with ejection fraction of 25% to 30%. 8. Chronic systolic heart failure. 9. Chronic alcohol abuse, currently in remission. 10. Tobacco abuse disorder. PLAN: 1. We will avoid nephrotoxic agents including diuretics and RAAS major. We will start the patient on nifedipine with a view to titrating it upwards to get adequate BP control. 2. We will continue hydralazine and isosorbide dinitrate as well as Coreg. 3. We will start the patient on alkali therapy with sodium bicarbonate 650 t.i.d. 4. We will start the patient on erythrocyte stimulating agent once cleared by Hematology and Oncology. Iron studies were normal. 5. We will repeat renal function in the morning. Many thanks for involving us in the care of this patient. We will follow along with you. Job ID: [id number]
--- NOTE | 2019-06-15 10:19 | PDOC.HOSPP ---
- Subjective Encounter Date: 06/15/19 Encounter Time: 10:17 Subjective: doing well, seen by the machine puller already - Objective Vital Signs & Weight: Vital Signs (12 hours) Temp Pulse Resp BP Pulse Ox 06/15/19 07:09 98.1 F 76 20 184/99 H 95 06/15/19 04:00 98.7 F 75 18 176/93 H 96 06/15/19 00:00 153/81 H 06/14/19 22:28 69 Weight Admit Weight 115 lb 1.301 oz Weight 119 lb 11.2 oz I&O: 06/14/19 06/15/19 06/16/19 06:59 06:59 06:59 Intake Total 300 1950 Output Total 0 1650 Balance 300 300 Result Diagrams: 06/15/19 05:14 06/15/19 05:14 Hospitalist ROS - Medication Medications: Active Medications Generic Name Dose Route Start Last Admin Trade Name Freq PRN Reason Stop Dose Admin Atorvastatin Calcium 10 mg 06/14/19 21:00 06/14/19 22:28 Lipitor PO 10 mg HS ESTHER Administration Carbamazepine 150 mg 06/14/19 09:00 06/15/19 08:29 Tegretol PO 150 mg DAILY ESTHER Administration Carvedilol 25 mg 06/14/19 08:00 06/15/19 08:30 Coreg PO 25 mg BID-WM ESTHRE Administration Cholecalciferol 1,000 units 06/14/19 09:00 06/15/19 08:28 Vitamin D3 PO 1,000 units DAILY ESTHER Administration Clotrimazole 1 gm 06/14/19 23:47 06/15/19 01:42 Clotrimazole 2% 3 Day Vag Cr VAG 1 applic BIDPRN PRN Administration Itching Ferrous Sulfate 325 mg 06/14/19 08:00 06/15/19 08:29 Feosol PO 325 mg QAM-WM ESTHER Administration Folic Acid 1 mg 06/14/19 09:00 06/15/19 08:29 Folvite PO 1 mg DAILY ESTHER Administration Hydralazine HCl 25 mg 06/14/19 09:00 06/15/19 08:29 Apresoline PO 25 mg TID ESTHER Administration Hydrocortisone/Aloe 0 gm 06/14/19 23:51 06/15/19 01:42 Hydrocortisone 1% Cream TOP 1 applic PRN PRN Administration Itching Isosorbide Dinitrate 20 mg 06/14/19 09:00 06/15/19 08:30 Isordil PO 20 mg TID ESTHER Administration Levetiracetam 500 mg 06/14/19 09:00 06/15/19 08:30 Keppra PO 500 mg BID ESTHER Administration Multivitamins/Zinc 1 tab 06/14/19 09:00 06/15/19 08:30 Stress 600 With Zinc PO 1 tab DAILY ESTHER Administration Nicotine 14 mg 06/13/19 23:00 06/14/19 22:28 Nicoderm Patch TD 14 mg Q24HR ESTHER Administration Nifedipine 60 mg 06/15/19 09:00 06/15/19 09:24 Procardia Xl PO 60 mg DAILY ESTHER Administration Pantoprazole Sodium 40 mg 06/15/19 09:00 06/15/19 09:25 Protonix PO 40 mg BID ESTHER Administration Sertraline HCl 50 mg 06/14/19 09:00 06/15/19 08:30 Zoloft PO 50 mg DAILY ESTHER Administration Sodium Bicarbonate 650 mg 06/14/19 09:00 06/15/19 08:31 Bicarbonate, Sodium PO 650 mg TID ESTHER Administration Thiamine HCl 100 mg 06/14/19 09:00 06/15/19 08:29 Thiamine PO 100 mg DAILY ESTHER Administration - Exam General Appearance: NAD, awake alert, ill appearing Eye: PERRL, anicteric sclera, scleral icterus ENT: normocephalic atraumatic, no oropharyngeal lesions, moist mucosa, dry oral mucosa Neck: supple, symmetric, no JVD, no thyromegaly, no lymphadenopathy, no carotid bruit, JVD Heart: RRR, no murmur, no gallops, no rubs, normal peripheral pulses, irregular , diminshed peripheral pulses, murmur present, II/IV, III/IV Respiratory: CTAB, no wheezes, no rales, no ronchi, normal chest expansion, no tachypnea, normal percussion, rales, rhonchi, tachypneic, wheezes Extremities: no cyanosis, no clubbing, no edema, 1+ LE edema, 2+ LE edema, clubbing Skin: normal turgor, no lesions, no rashes, tenting Neurological: cranial nerve grossly intact, normal sensation to touch, no weakness, no focal deficits, no new deficit, facial droop, hemiplegia, speech deficit, vision deficit Hosp A/P (1) Acute on chronic anemia Code(s): D64.9 - ANEMIA, UNSPECIFIED Status: Acute (2) Cardiomyopathy Code(s): I42.9 - CARDIOMYOPATHY, UNSPECIFIED Status: Acute (3) GI bleeding Code(s): K92.2 - GASTROINTESTINAL HEMORRHAGE, UNSPECIFIED Status: Suspected (4) Acute worsening of stage 3 chronic kidney disease Code(s): N18.3 - CHRONIC KIDNEY DISEASE, STAGE 3 (MODERATE) Status: Acute - Plan apreciate Npehrology input.
--- NOTE | 2019-06-15 12:47 | PRG ---
DATE OF SERVICE: 06/15/2019 SUBJECTIVE: This is a 68-year-old female, seen by me 2 days ago with history of black tarry stool. However, the stools are back to normal in color. Her blood count is stable. She had admitting hemoglobin of 7.3, has come to 8.8 yesterday, today it is 9.1, and hematocrit 26.6. The patient had a stool today. The stool is formed. This is actually brownish in color, not black or any melena or blood in the stool. She offers no complaints. PHYSICAL EXAMINATION: VITAL SIGNS: Stable. Afebrile, pulse is 76, and blood pressure 184/99. CARDIOVASCULAR SYSTEM/LUNGS: Within normal limits. ABDOMEN: Soft. No organomegaly. No tenderness. No masses. IMPRESSION: History of questionable history of black tarry stool, but the esophagogastroduodenoscopy was negative. Blood count is actually stable. She has history of anemia from before. PLAN: From GI standpoint, no other workup planned. Continue symptomatic treatment and discharge when appropriate. Job ID: [id number]
[2019-06-15] MEDS: Atorvastatin Calcium 10 MG TAB PO SCH (20:19)
[2019-06-16] MEDS: Nicotine 14 MG PATCH TD SCH (02:31)
[2019-06-16 05:31] LABS: Hemoglobin 8.5 g/dL (12.0-16.0); Mean Corpuscular HGB CONC 33.6 g/dL (32.0-36.0); Mean Corpuscular Hemoglobin 34.1 pg (27.0-31.0); Mean Platelet Volume 6.9 fL (7.4-10.4); Platelet Count 171 thou/uL (130-400); RBC Distribution Width 18.1 % (11.5-14.5); Red Blood Cell (RBC) Count 2.49 mill/uL (4.20-5.40); White Blood Cell (WBC) Count 3.4 thou/uL (4.8-10.8)
[2019-06-16 05:52] LABS: Anion Gap 13 mmol/L (10-20); BUN (Urea Nitrogen) 34 mg/dL (9.8-20.1); BUN/Creatinine Ratio 14.98; Calc. Creatinine Clearance 21 mL/min (70-130); Calcium 8.8 mg/dL (7.8-10.44); Carbon Dioxide 21 mmol/L (23-31); Chloride 112 mmol/L (98-107); Estimated GFR-MDRD 26; Glucose 78 mg/dL (80-115); Potassium 4.5 mmol/L (3.5-5.1); Sodium 141 mmol/L (136-145)
[2019-06-16] MEDS: Sodium Bicarbonate Tab 325 MG TAB PO SCH ×3 (08:22→20:38)
[2019-06-16] MEDS: carBAMazepine 100 mg Chewable Tablet PO SCH (08:23)
[2019-06-16] MEDS: NIFEdipine XL 60 MG TAB PO SCH (08:23)
[2019-06-16] MEDS: Carvedilol 25 MG TAB PO SCH ×2 (08:24→16:45)
[2019-06-16] MEDS: levETIRAcetam 500 MG TAB PO SCH ×2 (08:24→20:37)
[2019-06-16] MEDS: Thiamine 100 MG TAB PO SCH (08:24)
[2019-06-16] MEDS: Folic Acid 1 MG TAB PO SCH (08:24)
[2019-06-16] MEDS: Isosorbide Dinitrate 20 MG TAB PO SCH ×3 (08:24→20:37)
[2019-06-16] MEDS: Ferrous Sulfate 325 MG TAB PO SCH (08:24)
[2019-06-16] MEDS: hydrALAZINE 25 MG TAB PO SCH ×3 (08:24→20:37)
[2019-06-16] MEDS: Stress 600 With Zinc 1 TAB PO SCH (08:25)
--- NOTE | 2019-06-16 10:57 | CON ---
DATE OF CONSULTATION: 06/14/2019 REFERRING DOCTOR: Fan Andres MD. REASON FOR CONSULTATION: . HISTORY OF PRESENT ILLNESS: Ms. Dena Oconnell is a 68-year-old female, hospitalized here recently . She was sent to exactly 10 days . The patient returned back to the ER yesterday black tarry stool. She couple of days ago, but not anymore. She said she had multiple stools today, the stools are brown in color. The patient has history of anemia in the past. In fact, the last admission . The patient also has had recently and was sent for endosonography . I am really biopsy showed at the present time, she appears very comfortable. Denies any abdominal pain, nausea or vomiting. No history of heartburn. No history of abdominal pain. about the endosonographic report, she is not sure whether she had admission, she was found to have . She has been transfused last admission, she was seen by Dr. Krish Ulloa for cardiology evaluation. . The patient smokes heavily before and she quit smoking very heavily before by Dr. Krish Ulloa cardiomyopathy . She had a low ejection fraction . At the present time, the patient chest discomfort, dyspnea, orthopnea, . ALLERGIES: GADOLINIUM . SOCIAL HISTORY: The patient . hysterectomy and arthroplasty. FAMILY HISTORY: of throat cancer of throat cancer. There is no family history of . MEDICATIONS: 1. . 2. Iron sulfate. 3. . 4. Tegretol. REVIEW OF SYSTEMS: On 10-point system review, HEENT: No headache. Eyes, no diplopia or impaired vision. Ears, no hearing loss . NECK: No pain or stiffness . LUNGS: Denies any chronic coughing or hemoptysis. CARDIOVASCULAR: No chest pain. Denies any palpitation. . GI: black tarry stool . : Denies . MUSCULOSKELETAL: back pain, muscle spasm body pain. NEUROPSYCHIATRIC: . PHYSICAL EXAMINATION: GENERAL: She is thin built, appears very comfortable, in no acute distress. She does answer questions . afebrile. Pulse is 70, blood pressure is . HEENT: Conjunctivae clear. NECK: Supple. No adenitis or thyromegaly. CARDIOVASCULAR: First and second . LUNGS: . ABDOMEN: Nontender. There is no organomegaly. . EXTREMITIES: LABORATORY DATA: On 06/13/2019 shows WBC , hemoglobin 7.3 after 1 unit of packed RBC going over the [employer] . On 06/01/2019, her WBC was appears she has had chronic anemia she gives a history of black tarry stool. CLINICAL IMPRESSION: 1. Anemia, mostly chronic tells me she had some brown stool abdominal pain history is suggestive of possibly upper gastrointestinal bleeding. 2. Pancreatic mass . 3. Cardiomyopathy . 4. Chronic kidney disease, stage 3. PLAN: later on today . We will make . Job ID: [id number]
[2019-06-16] MEDS ORDERED: Ergocalciferol 1.25 MG(50,000 UNITS) CAP PO SCH (11:15)
--- NOTE | 2019-06-16 11:22 | PRG ---
DATE OF SERVICE: 06/16/2019 SERVICE: Nephrology. SUBJECTIVE: A 68-year-old female with CKD 3, cardiomyopathy, admitted with black stool concerning for GI bleeding. Nephrology is seeing the patient for renal failure with acute exacerbation. The patient had frequent loose stools yesterday as well as poor oral intake, but that has improved today. No nausea or vomiting. OBJECTIVE: VITAL SIGNS: Temperature 99.1, pulse 82, respiratory rate 16, SpO2 of 98% on room air, blood pressure 177/81. GENERAL: Cachectic, chronically ill-looking female, in no obvious distress. Afebrile. Anicteric. Acyanotic. HEENT: Normocephalic, atraumatic. CARDIOVASCULAR: Regular rhythm and rate with normal heart sounds 1 and 2. RESPIRATORY: Fair air entry bilaterally with no crackle or rhonchi or use of accessory muscles. GI: Flat, soft, nontender, nondistended with normal bowel sounds. EXTREMITIES: Grossly normal looking, atraumatic with no edema or erythema. Diffuse atrophy noted. WRAPPER SORTER: Conscious, alert, oriented x3 with appropriate mental status. DIAGNOSTIC DATA: CBC today showed WBC count of 3.4, hemoglobin of 8.5, and platelet of 171. Renal function panel showed sodium 141, potassium 4.5, chloride 112, CO2 of 21, BUN 34, creatinine 2.27, up from 1.87 yesterday, glucose 78, calcium 8.8, phosphorus 5.0, albumin 3.0. PTH is 77.4 and 25-hydroxy vitamin D is 12.7. ASSESSMENT: 1. Acute kidney injury: Most likely due to hemodynamic factors related to poor oral intake and diarrhea. Oral intake has improved today and diarrhea has subsided. 2. Chronic kidney disease, stage 3. 3. Hypertension: Control is still suboptimal. We will continue current medications with a view to increase nifedipine to 90 by tomorrow if control is still suboptimal today. We will avoid lisinopril due to acute kidney injury. 4. Hyperphosphatemia due to chronic kidney disease. 5. Vitamin D deficiency. PLAN: 1. Hanson oral intake advised. The patient is now on oral supplementation. 2. Monitor BP and titrate nifedipine upwards to get adequate BP control. 3. Start vitamin D supplementation. 4. Continue sodium bicarbonate treatment. Other treatment as per primary attending. Job ID: [id number]
--- NOTE | 2019-06-16 14:25 | PDOC.HOSPP ---
- Subjective Encounter Date: 06/16/19 Encounter Time: 14:24 Subjective: DOING WELL - Objective Vital Signs & Weight: Vital Signs (12 hours) Temp Pulse Resp BP Pulse Ox 06/16/19 10:00 97.4 F L 74 16 157/81 H 96 06/16/19 08:00 98.6 F 98 15 186/100 H 97 06/16/19 04:00 99.1 F 82 16 177/81 H 98 Weight Admit Weight 115 lb 1.301 oz Weight 119 lb 14.4 oz I&O: 06/15/19 06/16/19 06/17/19 06:59 06:59 06:59 Intake Total 1950 1220 Output Total 1650 1200 Balance 300 20 Result Diagrams: 06/16/19 05:10 06/16/19 05:10 Hospitalist ROS - Medication Medications: Active Medications Generic Name Dose Route Start Last Admin Trade Name Freq PRN Reason Stop Dose Admin Atorvastatin Calcium 10 mg 06/14/19 21:00 06/15/19 20:19 Lipitor PO 10 mg HS [facility] Administration Carbamazepine 150 mg 06/14/19 09:00 06/16/19 08:23 Tegretol PO 150 mg DAILY [facility] Administration Carvedilol 25 mg 06/14/19 08:00 06/16/19 08:24 Coreg PO 25 mg BID-WM [facility] Administration Cholecalciferol 1,000 units 06/14/19 09:00 06/16/19 08:23 Vitamin D3 PO 1,000 units DAILY [facility] Administration Clotrimazole 1 gm 06/14/19 23:47 06/15/19 01:42 Clotrimazole 2% 3 Day Vag Cr VAG 1 applic BIDPRN PRN Administration Itching Ferrous Sulfate 325 mg 06/14/19 08:00 06/16/19 08:24 Feosol PO 325 mg QAM-WM [facility] Administration Folic Acid 1 mg 06/14/19 09:00 06/16/19 08:24 Folvite PO 1 mg DAILY [facility] Administration Hydralazine HCl 25 mg 06/14/19 09:00 06/16/19 14:22 Apresoline PO 25 mg TID [facility] Administration Hydrocortisone/Aloe 0 gm 06/14/19 23:51 06/15/19 01:42 Hydrocortisone 1% Cream TOP 1 applic PRN PRN Administration Itching Isosorbide Dinitrate 20 mg 06/14/19 09:00 06/16/19 14:22 Isordil PO 20 mg TID [facility] Administration Levetiracetam 500 mg 06/14/19 09:00 06/16/19 08:24 Keppra PO 500 mg BID [facility] Administration Multivitamins/Zinc 1 tab 06/14/19 09:00 06/16/19 08:25 Stress 600 With Zinc PO 1 tab DAILY [facility] Administration Nicotine 14 mg 06/13/19 23:00 06/16/19 02:31 Nicoderm Patch TD 14 mg Q24HR [facility] Administration Nifedipine 60 mg 06/15/19 09:00 06/16/19 08:23 Procardia Xl PO 60 mg DAILY [facility] Administration Pantoprazole Sodium 40 mg 06/15/19 09:00 06/16/19 08:24 Protonix PO 40 mg BID [facility] Administration Sertraline HCl 50 mg 06/14/19 09:00 06/16/19 08:24 Zoloft PO 50 mg DAILY [facility] Administration Sodium Bicarbonate 650 mg 06/14/19 09:00 06/16/19 14:22 Bicarbonate, Sodium PO 650 mg TID [facility] Administration Sodium Chloride 10 ml 06/13/19 20:23 06/15/19 20:21 Flush - Normal Saline IVF 10 ml PRN PRN Administration Saline Flush Thiamine HCl 100 mg 06/14/19 09:00 06/16/19 08:24 Thiamine PO 100 mg DAILY [facility] Administration - Exam General Appearance: NAD, awake alert, ill appearing Eye: PERRL, anicteric sclera, scleral icterus ENT: normocephalic atraumatic, no oropharyngeal lesions, moist mucosa, dry oral mucosa Neck: supple, symmetric, no JVD, no thyromegaly, no lymphadenopathy, no carotid bruit, JVD Respiratory: CTAB, no wheezes, no rales, no ronchi, normal chest expansion, no tachypnea, normal percussion, rales, rhonchi, tachypneic, wheezes Gastrointestinal: soft, non-tender, non-distended, normal bowel sounds, no palpable masses, no hepatomegaly, no splenomegaly, no bruit, no guarding, no rigidity, tender to palpation, distended, diminished bowl sounds, voluntary guarding Extremities: no cyanosis, no clubbing, no edema, 1+ LE edema, 2+ LE edema, clubbing Hosp A/P (1) Acute on chronic anemia Code(s): D64.9 - ANEMIA, UNSPECIFIED Status: Acute (2) Cardiomyopathy Code(s): I42.9 - CARDIOMYOPATHY, UNSPECIFIED Status: Acute (3) GI bleeding Code(s): K92.2 - GASTROINTESTINAL HEMORRHAGE, UNSPECIFIED Status: Suspected (4) Acute worsening of stage 3 chronic kidney disease Code(s): N18.3 - CHRONIC KIDNEY DISEASE, STAGE 3 (MODERATE) Status: Acute - Plan apreciate Npehrology input.d/C PLANNING PER NEPHROLOGY
[2019-06-16 15:35] LABS: Bacteria/HPF 2+ HPF (None Seen); Bilirubin Negative (Negative); Blood, Urine Negative (Negative); Clarity Clear (Clear); Glucose, Urine (Dipstick) Normal (Negative); Leukocyte 75 Leu/uL (Negative); Nitrite 2+ (Negative); Protein, Urine (Dipstick) Negative (Neg-Trace); RBC/HPF 0-3 HPF (0-3); Squamous Epithelial 0-3 HPF (0-3); Urobilinogen Normal mg/dL (Less than 2)
[2019-06-16 15:59] LABS: Creatinine, Urine 41.91 mg/dL (47-110); Protein, Urine Random Quant Less than 10 mg/dL (1-14); Sodium, Urine 134 mmol/L (Not Available); Urea Nitrogen, Random Urine 239 mg/dl
[2019-06-16] MEDS: Atorvastatin Calcium 10 MG TAB PO SCH (20:37)
[2019-06-17] MEDS: Nicotine 14 MG PATCH TD SCH (06:22)
[2019-06-17 06:24] LABS: Anion Gap 14 mmol/L (10-20); BUN (Urea Nitrogen) 39 mg/dL (9.8-20.1); BUN/Creatinine Ratio 18.93; Calc. Creatinine Clearance 23 mL/min (70-130); Calcium 8.8 mg/dL (7.8-10.44); Carbon Dioxide 21 mmol/L (23-31); Chloride 110 mmol/L (98-107); Estimated GFR-MDRD 29; Glucose 82 mg/dL (80-115); Phosphorus 3.8 mg/dL (2.3-4.7); Potassium 4.9 mmol/L (3.5-5.1); Sodium 140 mmol/L (136-145)
[2019-06-17] MEDS: Carvedilol 25 MG TAB PO SCH ×2 (07:38→16:32)
[2019-06-17] MEDS: Ferrous Sulfate 325 MG TAB PO SCH (07:38)
[2019-06-17] MEDS: Thiamine 100 MG TAB PO SCH (09:28)
[2019-06-17] MEDS: levETIRAcetam 500 MG TAB PO SCH ×2 (09:28→20:15)
[2019-06-17] MEDS: Stress 600 With Zinc 1 TAB PO SCH (09:28)
[2019-06-17] MEDS: carBAMazepine 100 mg Chewable Tablet PO SCH (09:28)
[2019-06-17] MEDS: Folic Acid 1 MG TAB PO SCH (09:28)
[2019-06-17] MEDS: hydrALAZINE 25 MG TAB PO SCH ×3 (09:28→20:14)
[2019-06-17] MEDS: NIFEdipine XL 60 MG TAB PO SCH (09:29)
[2019-06-17] MEDS: Sodium Bicarbonate Tab 325 MG TAB PO SCH ×3 (09:29→20:15)
[2019-06-17] MEDS: Isosorbide Dinitrate 20 MG TAB PO SCH ×3 (09:29→20:15)
[2019-06-17] MEDS ORDERED: NIFEdipine XL 30 MG TAB PO SCH (10:45)
--- NOTE | 2019-06-17 11:08 | PRG ---
DATE OF SERVICE: 06/17/2019 SERVICE: Nephrology. SUBJECTIVE: A 68-year-old female being followed up for acute kidney injury, CKD, and hypertension. No new problem. Tolerating oral intake well. OBJECTIVE: VITAL SIGNS: Temperature 98.0, pulse 73, respiratory rate 16, SpO2 of 99% on room air, and blood pressure 177/97. GENERAL: Chronically ill-looking female, in no distress. Afebrile. Anicteric. Acyanotic. HEENT: Normocephalic and atraumatic. Oral mucosa is moist. CARDIOVASCULAR: Regular rhythm and rate with normal heart sounds 1 and 2. RESPIRATORY: Good air entry bilaterally with no obvious crackle or rhonchi or use of accessory muscles. GI: Full, soft, nontender, nondistended with normal bowel sounds. EXTREMITIES: Atrophic, but otherwise atraumatic with no edema or erythema. FLOWER GROWER: Conscious and alert and oriented x3 with appropriate mental status. DIAGNOSTIC DATA: Renal function panel showed sodium 140, potassium 4.9, chloride 110, CO2 of 21, BUN 39, creatinine 2.06, glucose 82, calcium 8.8, phosphorus 3.8, and albumin 3.0. ASSESSMENT: 1. Acute kidney injury: Due to hemodynamic factors. Improving with better intake and resolution of frequent loose stools. 2. Chronic kidney disease, stage 3. 3. Vitamin D deficiency. Started on oral supplementation. 4. Metabolic acidosis: Due to chronic kidney disease. Improving with alkali therapy. 5. Hypertension: Control is better, but still suboptimal. PLAN: 1. We will increase nifedipine to 90 mg p.o. daily. 2. We will continue alkali therapy. 3. The patient can be discharged from Nephrology point of view to follow up in 1 week with repeat labs. Many thanks for involving us in the care of this patient. Job ID: [id number]
[2019-06-17 13:24] VITALS: BMI 19.1
[2019-06-17] MEDS: Atorvastatin Calcium 10 MG TAB PO SCH (20:14)
[2019-06-18 05:33] LABS: #Eosinphils 0.1 thou/uL (0.0-0.7); #Lymphocytes 0.5 thou/uL (1.20-3.40); #Monocytes 0.3 thou/uL (0.11-0.59); #Neutrophils 2.6 thou/uL (1.40-6.50); %Basophils 0.5 % (0.0-1.0); %Eosinophils 2.8 % (0.0-10.0); %Lymphocytes 13.4 % (21.0-51.0); %Monocytes 8.8 % (0.0-10.0); %Neutrophils 74.6 % (42.0-75.0); Hemoglobin 8.1 g/dL (12.0-16.0); Mean Corpuscular HGB CONC 33.6 g/dL (32.0-36.0); Mean Corpuscular Hemoglobin 34.4 pg (27.0-31.0); Mean Platelet Volume 7.1 fL (7.4-10.4); Platelet Count 155 thou/uL (130-400); RBC Distribution Width 17.5 % (11.5-14.5); Red Blood Cell (RBC) Count 2.36 mill/uL (4.20-5.40); White Blood Cell (WBC) Count 3.5 thou/uL (4.8-10.8)
[2019-06-18] MEDS: Nicotine 14 MG PATCH TD SCH (05:52)
[2019-06-18] MEDS: carBAMazepine 100 mg Chewable Tablet PO SCH (08:57)
[2019-06-18] MEDS: levETIRAcetam 500 MG TAB PO SCH ×2 (08:57→20:17)
[2019-06-18] MEDS: Folic Acid 1 MG TAB PO SCH (08:57)
[2019-06-18] MEDS: Thiamine 100 MG TAB PO SCH (08:58)
[2019-06-18] MEDS: hydrALAZINE 25 MG TAB PO SCH ×3 (08:58→20:17)
[2019-06-18] MEDS: Carvedilol 25 MG TAB PO SCH ×2 (08:58→18:21)
[2019-06-18] MEDS: Ferrous Sulfate 325 MG TAB PO SCH (08:58)
[2019-06-18] MEDS: Isosorbide Dinitrate 20 MG TAB PO SCH ×3 (08:59→20:17)
[2019-06-18] MEDS: Sodium Bicarbonate Tab 325 MG TAB PO SCH ×3 (08:59→20:17)
[2019-06-18] MEDS: Stress 600 With Zinc 1 TAB PO SCH (08:59)
[2019-06-18] MEDS ORDERED: NIFEdipine XL 90 MG TAB PO SCH (09:00)
[2019-06-18] MEDS ORDERED: NIFEdipine XL 30 MG TAB PO SCH (11:30)
[2019-06-18] MEDS ORDERED: EPOETIN ALFA-EPBX (ESRD) 3,000 UNIT/ML VIAL IVP SCH (11:45)
--- NOTE | 2019-06-18 11:48 | PRG ---
DATE OF SERVICE: 06/18/2019 SERVICE: Nephrology. SUBJECTIVE: A 68-year-old female admitted due to black stools concerning for GI bleeding. Nephrology is seeing the patient for acute on chronic renal failure. The patient reports feeling better. Desires to be discharged. No nausea, vomiting, or diarrhea. Oral intake has improved. OBJECTIVE: VITAL SIGNS: Temperature 98.9, pulse 75, respiratory rate 20, SpO2 of 94% on room air, blood pressure is 182/96. GENERAL: Female, in no obvious distress. Chronically ill looking. HEENT: Normocephalic, atraumatic. Oral mucosa is moist. CARDIOVASCULAR: Regular rhythm and rate. Normal heart sounds 1 and 2. RESPIRATORY: Fair air entry bilaterally with no obvious crackle, rhonchi, or use of accessory muscles. GASTROINTESTINAL: Full, soft, nontender, and nondistended with normal bowel sounds. EXTREMITIES: Atrophic, but otherwise no edema or erythema. CENTRAL NERVOUS SYSTEM: Conscious, alert, and oriented x3 with appropriate mental status. DIAGNOSTIC DATA: CBC today showed WBC count of 3.5, hemoglobin of 8.1, MCV of 102, platelet of 155. There is no BMP today. ASSESSMENT: 1. Acute kidney injury superimposed on chronic kidney disease stage 3. Creatinine is trending down towards baseline. 2. Uncontrolled hypertension, better but still suboptimal. Systolic blood pressure is 160 to 180. 3. Metabolic acidosis: Due to chronic kidney disease. Improving with alkali therapy. 4. Anemia in chronic kidney disease. MATEUS therapy contemplated. PLAN: 1. We will increase nifedipine to 120 p.o. daily. We will continue hydralazine as well as isosorbide mononitrate. 2. We will give the patient a dose of Epogen with a view to possibly continue and if she made good response. Other treatment as per primary attending. 3. Disposition: The patient can be discharged from Nephrology point of view. She needs to follow up in 7 to 10 days with repeat labs. Job ID: [id number]
[2019-06-18] MEDS: Atorvastatin Calcium 10 MG TAB PO SCH (20:16)
--- NOTE | 2019-06-19 01:04 | PDOC.HOSPP ---
- Subjective Encounter Date: 06/18/19 Encounter Time: 20:00 Subjective: Patient states she is doing well and is without any complaints. Reports having improvement in her appetite since being here and has been tolerating intake without any N/V. Has not had any chest pain or shortness of breath. No n/v. No abdominal pain. Moving her bowels as normal and denies any urinary symptoms. No fevers or chills. Overall feeling well and eager for discharge. States she was told she would be going home tomorrow. - Objective Vital Signs & Weight: Vital Signs (12 hours) Temp Pulse Resp BP BP Pulse Ox 06/18/19 23:49 167/91 H 06/18/19 20:17 63 06/18/19 19:31 97.5 F L 63 20 161/85 H 98 06/18/19 16:16 97.4 F L 67 16 135/89 92 L 06/18/19 15:45 68 06/18/19 15:37 97.4 F L 68 18 135/89 95 Weight Admit Weight 115 lb 1.301 oz Weight 119 lb 3.2 oz I&O: 06/17/19 06/18/19 06/19/19 06:59 06:59 06:59 Intake Total 1500 1650 Output Total 1300 1440 Balance 200 210 Result Diagrams: 06/18/19 04:18 06/17/19 05:27 Hospitalist ROS - Review of Systems Constitutional: denies: fever, chills, sweats, weakness, malaise, other Eyes: denies: pain, vision change, conjunctivae inflammation, eyelid inflammation, redness, other ENT: denies: ear pain, ear discharge, nose pain, nose discharge, nose congestion , mouth pain, mouth swelling, throat pain, throat swelling, other Respiratory: denies: cough, dry, shortness of breath, hemoptysis, SOB with excertion, pleuritic pain, sputum, wheezing, other Cardiovascular: denies: chest pain, palpitations, orthopnea, paroxysmal noc. dyspnea, edema, light headedness, other Gastrointestinal: denies: nausea, vomiting, abdominal pain, diarrhea, constipation, melena, hematochezia, other Genitourinary: denies: dysuria, frequency, incontinence, hematuria, retention, other Musculoskeletal: denies: neck pain, shoulder pain, arm pain, back pain, hand pain, leg pain, foot pain, other Skin: denies: rash, lesions, santi, bruising, other Neurological: denies: weakness, numbness, incoordination, change in speech, confusion, seizures, other - Medication Medications: Active Medications Generic Name Dose Route Start Last Admin Trade Name Freq PRN Reason Stop Dose Admin Atorvastatin Calcium 10 mg 06/14/19 21:00 06/18/19 20:16 Lipitor PO 10 mg HS [facility] Administration Carbamazepine 150 mg 06/14/19 09:00 06/18/19 08:57 Tegretol PO 150 mg DAILY [facility] Administration Carvedilol 25 mg 06/14/19 08:00 06/18/19 18:21 Coreg PO 25 mg BID-WM [facility] Administration Cholecalciferol 5,000 units 06/18/19 09:00 06/18/19 08:54 Vitamin D3 PO 5,000 units DAILY [facility] Administration Clotrimazole 1 gm 06/14/19 23:47 06/15/19 01:42 Clotrimazole 2% 3 Day Vag Cr VAG 1 applic BIDPRN PRN Administration Itching Ferrous Sulfate 325 mg 06/14/19 08:00 06/18/19 08:58 Feosol PO 325 mg QAM-WM [facility] Administration Folic Acid 1 mg 06/14/19 09:00 06/18/19 08:57 Folvite PO 1 mg DAILY [facility] Administration Hydralazine HCl 25 mg 06/14/19 09:00 06/18/19 20:17 Apresoline PO 25 mg TID [facility] Administration Hydrocortisone/Aloe 0 gm 06/14/19 23:51 06/15/19 01:42 Hydrocortisone 1% Cream TOP 1 applic PRN PRN Administration Itching Isosorbide Dinitrate 20 mg 06/14/19 09:00 06/18/19 20:17 Isordil PO 20 mg TID [facility] Administration Levetiracetam 500 mg 06/14/19 09:00 06/18/19 20:17 Keppra PO 500 mg BID [facility] Administration Multivitamins/Zinc 1 tab 06/14/19 09:00 06/18/19 08:59 Stress 600 With Zinc PO 1 tab DAILY [facility] Administration Nicotine 14 mg 06/18/19 06:00 06/18/19 05:52 Nicoderm Patch TD 14 mg 0600 [facility] Administration Sertraline HCl 50 mg 06/14/19 09:00 06/18/19 08:57 Zoloft PO 50 mg DAILY [facility] Administration Sodium Bicarbonate 650 mg 06/14/19 09:00 06/18/19 20:17 Bicarbonate, Sodium PO 650 mg TID [facility] Administration Sodium Chloride 10 ml 06/13/19 20:23 06/15/19 20:21 Flush - Normal Saline IVF 10 ml PRN PRN Administration Saline Flush Thiamine HCl 100 mg 06/14/19 09:00 06/18/19 08:58 Thiamine PO 100 mg DAILY [facility] Administration - Exam General Appearance: NAD General - other findings: Appears cachectic Eye: PERRL ENT: normocephalic atraumatic, no oropharyngeal lesions, moist mucosa Neck: supple, no lymphadenopathy Heart: RRR, no murmur, no gallops, no rubs, normal peripheral pulses Respiratory: CTAB, no wheezes, no rales, no ronchi, normal chest expansion, no tachypnea Gastrointestinal: soft, non-tender, non-distended, normal bowel sounds, no guarding, no rigidity Extremities: no edema Skin: normal turgor, no lesions, no rashes Neurological: cranial nerve grossly intact, normal sensation to touch, no focal deficits Musculoskeletal: normal tone, normal strength, no muscle wasting Psychiatric: normal affect, normal behavior, A&O x 3 Hosp A/P (1) Acute on chronic anemia Code(s): D64.9 - ANEMIA, UNSPECIFIED Status: Acute (2) Cardiomyopathy Code(s): I42.9 - CARDIOMYOPATHY, UNSPECIFIED Status: Acute (3) GI bleeding Code(s): K92.2 - GASTROINTESTINAL HEMORRHAGE, UNSPECIFIED Status: Resolved (4) Protein-calorie malnutrition, severe Code(s): E43 - UNSPECIFIED SEVERE PROTEIN-CALORIE MALNUTRITION Status: Chronic (5) Acute worsening of stage 3 chronic kidney disease Code(s): N18.3 - CHRONIC KIDNEY DISEASE, STAGE 3 (MODERATE) Status: Acute (6) Metabolic encephalopathy Code(s): G93.41 - METABOLIC ENCEPHALOPATHY Status: Resolved - Plan Patient asymptomatic at present and without any complaints. For possible discharge in AM. Apparently may have been seen by Dr. Simpson. Cleared by Nephrology for discharge home.
[2019-06-19] MEDS: Nicotine 14 MG PATCH TD SCH (05:45)
[2019-06-19 06:11] LABS: #Eosinphils 0.1 thou/uL (0.0-0.7); #Lymphocytes 0.5 thou/uL (1.20-3.40); #Monocytes 0.2 thou/uL (0.11-0.59); #Neutrophils 2.4 thou/uL (1.40-6.50); %Eosinophils 3.1 % (0.0-10.0); %Lymphocytes 14.7 % (21.0-51.0); %Monocytes 6.7 % (0.0-10.0); %Neutrophils 75.5 % (42.0-75.0); Hemoglobin 8.1 g/dL (12.0-16.0); Mean Corpuscular HGB CONC 33.1 g/dL (32.0-36.0); Mean Corpuscular Hemoglobin 34.1 pg (27.0-31.0); Mean Platelet Volume 7.4 fL (7.4-10.4); Platelet Count 165 thou/uL (130-400); RBC Distribution Width 17.4 % (11.5-14.5); Red Blood Cell (RBC) Count 2.37 mill/uL (4.20-5.40); White Blood Cell (WBC) Count 3.2 thou/uL (4.8-10.8)
[2019-06-19 06:32] LABS: Anion Gap 14 mmol/L (10-20); BUN (Urea Nitrogen) 41 mg/dL (9.8-20.1); Calc. Creatinine Clearance 24 mL/min (70-130); Calcium 8.8 mg/dL (7.8-10.44); Carbon Dioxide 22 mmol/L (23-31); Chloride 109 mmol/L (98-107); Estimated GFR-MDRD 31; Glucose 76 mg/dL (80-115); Potassium 5.2 mmol/L (3.5-5.1); Sodium 140 mmol/L (136-145)
[2019-06-19 07:45] VITALS: BP 164/74; TEMP 98.4
[2019-06-19] MEDS ORDERED: NIFEdipine XL 60 MG TAB PO SCH (09:00)
[2019-06-19] MEDS ORDERED: NIFEdipine XL 90 MG TAB PO SCH (09:00)
[2019-06-19] MEDS: carBAMazepine 100 mg Chewable Tablet PO SCH (09:37)
[2019-06-19] MEDS: Ferrous Sulfate 325 MG TAB PO SCH (09:39)
[2019-06-19] MEDS: Stress 600 With Zinc 1 TAB PO SCH (09:39)
[2019-06-19] MEDS: Thiamine 100 MG TAB PO SCH (09:39)
[2019-06-19] MEDS: Sodium Bicarbonate Tab 325 MG TAB PO SCH (09:39)
[2019-06-19] MEDS: Isosorbide Dinitrate 20 MG TAB PO SCH (09:40)
[2019-06-19] MEDS: Folic Acid 1 MG TAB PO SCH (09:40)
[2019-06-19] MEDS: Carvedilol 25 MG TAB PO SCH (09:40)
[2019-06-19] MEDS: levETIRAcetam 500 MG TAB PO SCH (09:40)
[2019-06-19] MEDS: hydrALAZINE 25 MG TAB PO SCH (09:40)
--- NOTE | 2019-06-23 10:27 | DIS ---
DATE OF ADMISSION: 06/13/2019 DATE OF DISCHARGE: 06/19/2019 ADMITTING DIAGNOSES: 1. Acute blood loss anemia. 2. Chronic kidney disease stage 3. 3. Hypertension 4. Seizure disorder. 5. Tobacco abuse. FINAL DIAGNOSES: 1. Anemia of chronic disease, H and H stable. 2. Acute kidney injury, improved. 3. Chronic kidney disease, stage III. 4. Metabolic acidosis, improved. 5. Uncontrolled hypertension, improved. 6. .No evidence of GI bleeding 7. Tobacco abuse. 8. Seizure disorder. BRIEF SUMMARY OF HOSPITAL COURSE: Ms. Oconnell is a 68-year-old female transferred from custodial to ER because of anemia. The patient's hemoglobin dropped to less than 7, so the patient was transfused. Her hemoglobin improved and stayed around 8-9gms. EGD was unremarkable. The patient had acute kidney injury on top of chronic kidney disease . Pt was given IV fluids.Her symptoms improved, BUN came down, creatinine came down, CO2 also improved. So in view of improvement , pt was discharged home. At the timeof discharge pt was stable. DISCHARGE MEDICATIONS: 1. Nifedipine ER 60 mg daily. 2. Vitamin D 4000 units daily. 3. Sodium bicarbonate 650 t.i.d. 4. Protonix 40 mg daily. 5. Nicoderm 14 mg transderm patch. 6. Keppra 500 b.i.d. 7. Isordil 20 mg t.i.d. 8. Hydralazine 25 mg t.i.d. 9. Folic acid 1 mg daily. 10. Ferrous sulfate 325 mg daily. 11. Coreg 25 b.i.d. 12. Carbamazepine 150 mg daily. 13. Ritalin 50 mg daily. FOLLOWUP: The patient will come for followup in 2 weeks. Job ID: [id number] [facility]
--- NOTE | 2019-07-01 23:10 | PQF ---
RORYDIONISIO ANTHONY ALISHA MARROQUIN MD [id number] [id number] CLINICAL DOCUMENTATION CLARIFICATION FORM: POST DISCHARGE Addendum to original discharge summary date: ____ Late entry note date: __ DATE: 07/01/2019 ATTN:ALISHA MARROQUIN MD Please exercise your independent, professional judgment in responding to the clarification form. Clinical indicators are provided on the bottom of this form for your review Please check appropriate box(s): [ y] Anemia due to Chronic kidney disease [ ] Anemia due to Pancreatic cancer [ ] Other diagnosis [ ] Unable to determine For continuity of documentation, please document condition throughout progress notes and discharge summary. Thank You. CLINICAL INDICATORS - SIGNS / SYMPTOMS / LABS -GI bleeding is suspected but seem unlikely with negative occult bloodx2.black stool may be related to diet & pancreatic disease-Hospitalist PNs,06/14/19, Iftikhar Goddard -EGD did not show any active bleeding- Event note, 06/14/19, Sammie ferrer -The patient was found to have acute on chronic anemia & was transfused 1 unit of PRBCs-Consult note on 06/15/19, Alhaji Holbrook MD -Anemia in chronic kidney disease - Consult note on 06/15/19, Alhaji Holbrook MD -GI bleeding -resolved -Hospitalist PNs,06/18/19, Iftikhar Goddard -Final diagnosis : Anemia of chronic disease, H and H stable -DS, 06/20/19, ALISHA RIVERA MD -No evidence of GI bleeding. -DS, 06/20/19, ALISHA RIVERA MD RISK FACTORS -chronic kidney disease -stage3-DS, 06/20/19, ALISHA RIVERA MD -Pancreatic cancer -Consult note on 06/15/19, Alhaji Holbrook MD TREATMENTS: - Sodium chloride.IV- MAR, 06/19 -Transfused 1 unit of PRBCs-Consult note on 06/15/19, (This form is maintained as a part of the permanent medical record) 2014 [employer]. All Rights Reserved Thang Ahumada [not provided] [not provided] MTDD
== END 2019-06-19 13:58 | disposition home or self-care (01) | DRG 682 ==
LOC: ERS 16:52 → 2NO 18:49
PROVIDERS: ADMIT Internal Medicine; ATTEND Internal Medicine
PROC: 0D768ZZ Dilation of Stomach, Via Natural or Artificial Opening Endoscopic (ICD-10-PCS; principal; 2019-06-14)
DX: I12.9 Hypertensive chronic kidney disease with stage 1 through stage 4 chronic kidney disease, or unspecified chronic kidney disease (principal); G93.41 Metabolic encephalopathy; E43 Unspecified severe protein-calorie malnutrition; K92.2 Gastrointestinal hemorrhage, unspecified; I42.9 Cardiomyopathy, unspecified; D62 Acute posthemorrhagic anemia; C25.9 Malignant neoplasm of pancreas, unspecified; E87.2 Acidosis; I50.22 Chronic systolic (congestive) heart failure; N17.9 Acute kidney failure, unspecified; Z68.1 Body mass index [BMI] 19.9 or less, adult; N18.3 Chronic kidney disease, stage 3 (moderate); F17.210 Nicotine dependence, cigarettes, uncomplicated; G40.909 Epilepsy, unspecified, not intractable, without status epilepticus; I25.10 Atherosclerotic heart disease of native coronary artery without angina pectoris; E03.9 Hypothyroidism, unspecified; F10.10 Alcohol abuse, uncomplicated; E83.39 Other disorders of phosphorus metabolism; D63.1 Anemia in chronic kidney disease; Z96.642 Presence of left artificial hip joint; Z90.710 Acquired absence of both cervix and uterus; Z91.041 Radiographic dye allergy status
CPT/HCPCS: 36415; 36416; 36430; 80048; 80053; 80069; 81001; 82274; 82306; 82570; 82728; 83540; 83550; 83970; 84156; 84300; 84540; 85025; 85027; 85610; 85730; 86850; 86900; 86901; 87045; 87046; 87427; 87449; 96374; C9113; J1200; J2704; J3490; P9016; Q5105

== ENCOUNTER 2019-07-15 11:35 | Inpatient (IN) | payer MEDICARE ==
[2019-07-15] MEDS ORDERED: Naloxone HCl 0.4 mg/ml Vial ONE (11:41)
[2019-07-15 12:01] LABS: #Eosinphils 0.1 thou/uL (0.0-0.7); #Lymphocytes 0.4 thou/uL (1.20-3.40); #Monocytes 0.2 thou/uL (0.11-0.59); #Neutrophils 1.6 thou/uL (1.40-6.50); %Basophils 0.5 % (0.0-1.0); %Eosinophils 2.2 % (0.0-10.0); %Lymphocytes 18.3 % (21.0-51.0); %Monocytes 9.5 % (0.0-10.0); %Neutrophils 69.4 % (42.0-75.0); Hemoglobin 9.1 g/dL (12.0-16.0); Mean Corpuscular HGB CONC 34.4 g/dL (32.0-36.0); Mean Platelet Volume 6.8 fL (7.4-10.4); Platelet Count 145 thou/uL (130-400); RBC Distribution Width 15.6 % (11.5-14.5); Red Blood Cell (RBC) Count 2.61 mill/uL (4.20-5.40); White Blood Cell (WBC) Count 2.4 thou/uL (4.8-10.8)
[2019-07-15 12:33] LABS: Amphetamine Not Detected (NotDetected); Barbiturates Screen Not Detected (NotDetected); Benzodiazepine Screen Not Detected (NotDetected); Cocaine Metabolite Screen Not Detected (NotDetected); Medtox Control Line Valid? VALID (VALID); Medtox Reader # READER 1; Methadone Not Detected (NotDetected); Methamphetamine Not Detected (NotDetected); Opiate Screen Not Detected (NotDetected); Oxycodone Screen Not Detected (NotDetected); Phencyclidine (PCP) Not Detected (NotDetected); THC/Cannabinoid Screen Not Detected (NotDetected); Tricyclic Screen Not Detected (NotDetected)
[2019-07-15 12:37] LABS: Albumin 3.6 g/dL (3.4-4.8)
[2019-07-15 12:38] LABS: CKMB 1.9 ng/mL (0-6.6); Calcium 8.9 mg/dL (7.8-10.44); Chloride 99 mmol/L (98-107); Potassium 5.7 mmol/L (3.5-5.1); Sodium 134 mmol/L (136-145)
[2019-07-15 12:39] LABS: Glucose 153 mg/dL (80-115); Protein, Total 6.6 g/dL (6.0-8.3)
[2019-07-15 12:41] LABS: Anion Gap 22 mmol/L (10-20); Bilirubin, Total 0.5 mg/dL (0.2-1.2); Carbon Dioxide 19 mmol/L (23-31)
[2019-07-15 12:42] LABS: Alkaline Phosphatase 108 U/L (40-110); Calc. Creatinine Clearance 0 mL/min (70-130); Estimated GFR-MDRD 23
[2019-07-15 12:43] LABS: BUN (Urea Nitrogen) 73 mg/dL (9.8-20.1)
[2019-07-15 12:44] LABS: AST (SGOT) 14 U/L (5-34)
[2019-07-15 12:45] LABS: ALT (SGPT) Less than 7 U/L (8-55); CK (CPK) 29 U/L (29-168)
[2019-07-15 13:09] LABS: Acetaminophen Less than 6.0 mcg/mL (10.0-30.0); Alcohol Less than 10 mg/dL (Less than 10); Lipase 37 U/L (8-78); Salicylate Less than 8.0 mg/dL (15.0-30.0)
--- NOTE | 2019-07-15 13:12 | RAD ---
Exam: Chest one view HISTORY:AMS Comparison: 05/26/2019 FINDINGS: Lungs: No masses or consolidation. Subtle nodular densities overlie the lower chest bilaterally, favoring nipple shadows. This may be fu rther assessed with follow-up exam with nipple markers in place. Cardiac silhouette:Accentuated by technique Pulmonary vessels: Normal Pleural Spaces: Clear Pneumothorax: None Osseous abnormalities: None of acuity. IMPRESSION: No focal consolidation. Probable nipple shadows overlying the lower chest, bilaterally, as above.
[2019-07-15 14:23] LABS: Bilirubin Negative (Negative); Blood, Urine Moderate (Negative); Glucose, Urine (Dipstick) Negative (Negative); Leukocyte Trace (Negative); Nitrite Positive (Negative); Protein, Urine (Dipstick) Negative (Neg-Trace); Urobilinogen 0.2 mg/dL (Less than 2)
[2019-07-15 14:26] LABS: Clarity Clear (Clear)
[2019-07-15 14:27] LABS: Bacteria/HPF 2+ HPF (None Seen); Squamous Epithelial 0-3 HPF (0-3); WBC/HPF 0-3 HPF (0-3)
[2019-07-15] MEDS ORDERED: Dexamethasone 10 MG/ML VIAL ONE (15:13)
[2019-07-15] MEDS ORDERED: cefTRIAXone\\ROCEPHIN 1 GM in Sodium Chloride 0.9% 100 ML IVPB SCH (15:15)
[2019-07-15 15:23] LABS: Troponin I Less than 0.010 ng/mL (< 0.028)
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
[2019-07-15] MEDS ORDERED: Lactated Ringer's 1,000 ML IV SCH (16:30)
[2019-07-15] MEDS ORDERED: Hydrocortisone Sod Succ/PF 100 mg/2 ml Vial IVP SCH (18:00)
[2019-07-15] MEDS ORDERED: Nicotine 7 MG PATCH TD SCH (20:00)
[2019-07-15] MEDS ORDERED: Ondansetron ODT 4 MG TAB SL PRN (20:45)
[2019-07-15] MEDS ORDERED: Ondansetron PF 4 MG/2 ML Vial IVP PRN (20:45)
[2019-07-15] MEDS ORDERED: Sodium Chloride 0.9% 1,000 ML IV SCH (20:45)
--- NOTE | 2019-07-15 21:31 | HP ---
CHIEF COMPLAINT: Altered mental status. HISTORY OF PRESENT ILLNESS: I have reviewed all documentation done by Dr. Long and Dr. Garcia and agree with their documentation, assessment and plan unless otherwise stated in the following attestation. In summary, Ms. Oconnell is a pleasant 69-year-old woman with a known history of pancytopenia, recent upper GI bleed, recently diagnosed heart failure with reduced ejection fraction of 25% to 30%, currently undergoing LifeVest monitoring in the outpatient, and chronic kidney disease, stage 3. She presents to the ER after being found to be hypotensive at [facility] today, where she had a routine followup appointment scheduled. The patient is present with her elderly mother, who is her caregiver. The patient's mother states that the patient was more somnolent this morning and more difficult to arouse. She states that while they were at the clinic, the patient slumped over and became difficult to awaken. The patient denies fevers, chills, or other signs and symptoms of infection today. States she was feeling her normal self. In the ER, the patient received a 2 L normal saline fluid bolus and was given Decadron 10 mg IV, Levaquin 750 mg IV , and naloxone 0.4 mg IV. The patient's mother states that the patient has returned to her baseline. The patient was initially found to be significantly hypotensive with blood pressures as low as 75/50. Her blood pressure responded to fluids and at the time of my examination was sitting high 90s to low 100s over low to mid 60s. Please see the resident note for past medical, surgical, social, family, and medications. I performed a personal medication reconciliation while in the patient's room and noted her to be on multiple high dose antihypertensives. Review of records shows that she was recently discharged from the hospital with [id number] high blood pressure before she was sent home. PHYSICAL EXAMINATION: VITAL SIGNS: Blood pressure 104/62, MAP 65, pulse 70, respiratory rate 14, T- max 97.5, SpO2 97% on room air. Weight 43.36 kg. GENERAL: Alert, oriented x3. Appropriately interactive. Follows commands appropriately. CARDIOVASCULAR: Normal rate, regular rhythm. No murmurs, rubs, or gallops. LifeVest in place. PULMONARY: Clear to auscultation bilaterally. Normal effort. SKIN: No obvious skin breakdown. PERTINENT LABORATORY FINDINGS: Sodium 134, potassium 5.7, this has up trended from 5.2 on 06/19, and 4.9 on 06/17 of this year. Her white blood cells 2.4, hemoglobin 9.1, hematocrit 26.6, MCV 102, RDW 15.6, platelets 145. UA remarkable for 2+ bacteria, 0 to 3 white cells, trace leukocyte esterase, moderate blood, moderate positive nitrite and positive ketones. Serum and urine toxicology were negative. IMAGING DATA: Chest x-ray reviewed by me shows no acute processes. Read as no focal consolidations. EKG reviewed by me shows normal sinus rhythm with first degree AV block. AL interval of 254, otherwise normal axis, normal ST segments, normal QRS and T- wave progression. ASSESSMENT AND PLAN: Ms. Oconnell is a 69-year-old female with multiple comorbidities. Per records, she has been frequently readmitted to the hospital over the past 12 months with various issues. She was found to be profoundly hypertensive in the clinic in the ER. This has resolved with IV fluids. 1. Sepsis secondary to urinary tract infection. Again, at this time sepsis has resolved due to IV fluids. I do not have the patient require pressor at this time. We will place in the IMCU for close observation. Review of past microbiology does not show any drug-resistant urinary tract infections, so we will discontinue Levaquin at this time and start Rocephin. I do not think vancomycin needs to be added at this time. Cultures are pending. We will monitor closely and place central line for vasopressors if these become needed. Pulm/critical care was made aware of the patient at the time of admission. 2. Possible adrenal insufficiency. Given the patient's trend on her metabolic panel with a downtrending sodium and up trending potassium over the past several weeks , there is concern for this to be a potential cause of her hypertension. She was given Decadron in the ER. We will continue this on the floor. Random cortisol and ACTH level have been ordered. We will follow up with these labs. It is possible that the patient's adrenal insufficiency is due to her sepsis versus new onset heart failure. However, given her frail state, I feel that steroids are appropriate at this time. 3. Iatrogenic hypotension. The patient is currently on carvedilol 25 mg b.i.d., spironolactone 25 mg daily, nifedipine 60 mg daily, hydralazine 25 mg t.i.d. and isosorbide dinitrate 20 mg t.i.d. We will stop antihypertensives at this time and add back her heart failure medications once her blood pressure stabilizes. 4. Chronic medical conditions per resident's note. 5. Disposition and length of stay, inpatient IMCU greater than 2 midnights. Job ID: [id number] MTDD
[2019-07-16] MEDS: Hydrocortisone Sod Succ/PF 100 mg/2 ml Vial IVP SCH ×4 (02:26→20:47)
[2019-07-16 04:12] LABS: ALT (SGPT) Less than 7 U/L (8-55); AST (SGOT) 11 U/L (5-34); Albumin 3.5 g/dL (3.4-4.8); Alkaline Phosphatase 102 U/L (40-110); Anion Gap 17 mmol/L (10-20); BUN (Urea Nitrogen) 59 mg/dL (9.8-20.1); Bilirubin, Total 0.3 mg/dL (0.2-1.2); Calc. Creatinine Clearance 20 mL/min (70-130); Calcium 8.9 mg/dL (7.8-10.44); Carbon Dioxide 20 mmol/L (23-31); Chloride 103 mmol/L (98-107); Estimated GFR-MDRD 30; Globulin 3.1 g/dL (2.4-3.5); Glucose 203 mg/dL (80-115); Potassium 5.5 mmol/L (3.5-5.1); Protein, Total 6.6 g/dL (6.0-8.3); Sodium 134 mmol/L (136-145)
[2019-07-16 04:51] LABS: Band 6 % (5-11); Hemoglobin 7.9 g/dL (12.0-16.0); Lymphocytes 16 % (21-51); MDiff Complete? YES; Mean Corpuscular Hemoglobin 34.4 pg (27.0-31.0); Mean Platelet Volume 7.3 fL (7.4-10.4); Monocytes 5 % (0-10); Neutrophil 73 % (42-75); Platelet Count 132 thou/uL (130-400); RBC Distribution Width 15.6 % (11.5-14.5); White Blood Cell (WBC) Count 1.7 thou/uL (4.8-10.8)
--- NOTE | 2019-07-16 06:10 | PDOC.FM ---
- Objective Vital Signs & Weight: Vital Signs (12 hours) Temp Pulse Ox 07/16/19 03:57 98.3 F 07/16/19 00:00 99.0 F 07/15/19 20:10 99 07/15/19 19:50 97.7 F Weight Weight 45.45 kg Most Recent Monitor Data Heart Rate from ECG 70 NIBP 179/103 NIBP BP-Mean 128 Respiration from ECG 15 SpO2 99 I&O: 07/14/19 07/15/19 07/16/19 06:59 06:59 06:59 Intake Total 1400 Output Total 700 Balance 700 Result Diagrams: 07/16/19 03:33 07/16/19 03:33 Dx/Plan (1) Hypotension Status: Acute (2) UTI (urinary tract infection) Status: Acute (3) Hyperkalemia Code(s): E87.5 - HYPERKALEMIA Status: Acute (4) Hyponatremia Code(s): E87.1 - HYPO-OSMOLALITY AND HYPONATREMIA Status: Acute (5) CKD (chronic kidney disease) Code(s): N18.9 - CHRONIC KIDNEY DISEASE, UNSPECIFIED Status: Acute (6) Cardiomyopathy Code(s): I42.9 - CARDIOMYOPATHY, UNSPECIFIED Status: Acute (7) CAD (coronary artery disease) Code(s): I25.10 - ATHSCL HEART DISEASE OF [place] CORONARY ARTERY W/O ANG PCTRS Status: Chronic (8) Tobacco abuse Code(s): Z72.0 - TOBACCO USE Status: Chronic - Plan Plan: 69 yo F with HTN, HFrEF with live vest here for hypotension #. Hypotension 2/2 UTI vs. Adrenal insufficiency vs. Iatrogenic -Suspected acute adrenal insufficiency with findings of hyperkalemia & hyponatremia & BP response to decadron. Continue solucortef [id number] with continue. Pending renin, aldosterone, ACTH and cortisol levels. -Precipitating factors include underlying infection (UTI) -Less likely urosepsis-no left shift, afebrile. S/P levaquin. Switch to rocephin , pending urine & blood dx -Iatrogenic-pt on 4 different antihypertensives. Hold for now. Med rec. -Admit to IMCU since MAPs ~65-70, close monitoring. Central line if BP deteriorates. -AM pulm consult #. Pancytopenia -Has seen Dr. García -F/u on these records #. Anemia, likely mixed -Cont. home b9/b12 -Cont. home iron -Macrocytosis could be d/t h/o alcoholism #. CKD -Cr Downtrending, at baseline -Stable, monitor #. Malnutrition -BMI 16 -Nutrition consult, rx apprecatied #. CHFrEF with life vest -Chronic, stable -TTE on 05/2019 with EF of 25-29% -Euvolemic -Continue with outpt cardiology -Fluid restricted diet -Strict I/O #. Acute on chronic anemi -Hb 9.1, stable -EGD 05/2019 for melena-no source of bleeding -Check iron studies #. cHTN -Hold home meds, PRN antihypertensives #. 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 CAD -home meds Dvt ppx: SCD Dispo: >2 midnights Discussed wtih Dr. Rivera Addendum - Attending - Attending Attestation Date/Time: 07/16/19 0805 I personally evaluated the patient and discussed the management with Dr. Long I agree with the History, Examination, Assessment and Plan documented above with any addition or exceptions noted below.
[2019-07-16] MEDS: Nicotine 14 MG PATCH TD SCH (06:18)
[2019-07-16] MEDS: cefTRIAXone\\ROCEPHIN 1 GM in Sodium Chloride 0.9% 100 ML IVPB SCH (06:18)
[2019-07-16 07:03] LABS: Hemoglobin A1c 4.4 % (4.0-6.0)
--- NOTE | 2019-07-16 08:05 | PDOC.BPN ---
<ElierLeon T - Last Filed: 07/16/19 08:03> - Brief Progress Note PCP Continuity Visit: S: Doing well this morning. Knows she had appointment with me and traveling to clinic, but does not remember events in clinic leading up to hospitalization. This morning is eager for discharge. She denies any CP, SOB, n/v, dizziness, lightheadedness or LE edema. She is tolerating PO well. O: T 98.1, BP 178/105, HR 77, RR 14, O2 99% on RA General: A/O x3, at baseline mentation. Thin. Comfortably sitting upright in bed. NAD Cardio: RRR, no murmurs Pulm: CTAB, no rhonchi, wheeze, or crackles. No increased WOB. GI: Soft, NT, ND, normoactive bowel sounds Ext: 2+ pedal pulses BL, no lower ext edema A/P: 69 yo AAF with HTN, chronic anemia, CKDIII, seizure disorder, alcohol abuse, pancreatic lesion, and HFrEF with life vest who presented for AMS 2/2 hypotension Agree with plan from primary rounding team. #. Hypotension likely 2/2 UTI vs Adrenal insufficiency vs Iatrogenic - Pt responded with decadron in ED with findings of hyperkalemia and hyponatremia. Continuing solucortef q4h with labs pending this AM. - Precipitating factors including possible UTI - on rocephin, cultures pending - Iatrogenic - on spironolactone, nifedipine, imdur, hydralazine, and coreg at home. Consider deescalation of therapy as appropriate #. Hyperkalemia - Adrenal insufficiency vs Iatrogenic - Cont to hold spirinolactone - Monitor with adjustment of BP meds #. CKD III - Cr Downtrending, at baseline - Stable, monitor. Known to Dr. Buitrago from previous hospitalizations. #. Malnutrition - BMI 16 - Nutrition consult, rx apprecatied #. CHFrEF with life vest - Chronic, stable. Euvolemic on exam - TTE on 05/2019 with EF of 25-29% - Continue with outpt cardiology. Known to Dr. Ulloa - Fluid restricted diet with strict I's and O's #. Chronic anemia and Pancytopenia - Hb 9.1, stable. Suspected 2/2 chronic malnutrition and alcoholism. Mixed etiology. - EGD 05/2019 for melena-no source of bleeding - Iron studies WNL. - Known to Dr. García, will need continued f/u - Will order peripheral smear #. cHTN - BP this AM elevated to SBP 170s - Slow restart of home BP medications as tolerated and appropriate #. Tobacco and EtOH abuse - Nicotine patches. 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 CAD - cont home meds #. Seizure disorder - recommend continued Keppra #. Pancreatic Lesion - 2.4 x 2.4cm on pancreatic head. Ca 19-9 WNL per old records - Onc is Dr. García - Unclear etiology, will benefit from OP f/u Dvt ppx: SCD Diet: HH, low NA Dispo: >2 midnights PCP: Carlos Thapa - DANNY Yee - "G" - Son, lives in [place]. Number is [phone] Pt has appointment on 07/23 at 10:40 with PCP for f/u upon discharge. <Bessie Chapman - Last Filed: 07/17/19 07:19> Addendum - Attending - Attending Attestation Date/Time: 07/16/19 1218 I personally evaluated the patient and discussed the management with Dr. Thapa I agree with the History, Examination, Assessment and Plan documented above with any addition or exceptions noted below. Kajal
[2019-07-16] MEDS ORDERED: Carvedilol 25 MG TAB PO SCH (09:24)
[2019-07-16] MEDS: carBAMazepine 100 mg Chewable Tablet PO SCH (09:42)
[2019-07-16] MEDS: Ferrous Sulfate 325 MG TAB PO SCH (09:45)
[2019-07-16] MEDS: Folic Acid 1 MG TAB PO SCH (09:46)
[2019-07-16] MEDS: Thiamine 100 MG TAB PO SCH (09:46)
[2019-07-16] MEDS: levETIRAcetam 500 MG TAB PO SCH ×2 (09:46→20:47)
[2019-07-16] MEDS: Stress 600 With Zinc 1 TAB PO SCH (09:46)
[2019-07-16] MEDS: Sodium Bicarbonate Tab 325 MG TAB PO SCH ×3 (09:46→20:47)
--- NOTE | 2019-07-16 11:45 | PDOC.FM ---
- Subjective Subjective: NAEO. BPs good Pt feeling wellno complaints, wants to go home - Objective MAR Reviewed: Yes Vital Signs & Weight: Vital Signs (12 hours) Temp Pulse Ox 07/16/19 11:14 97.4 F L 07/16/19 07:50 99 07/16/19 07:36 98.1 F 07/16/19 03:57 98.3 F 07/16/19 00:00 99.0 F Weight Weight 45.45 kg Most Recent Monitor Data Heart Rate from ECG 77 NIBP 152/94 NIBP BP-Mean 113 Respiration from ECG 18 SpO2 98 I&O: 07/15/19 07/16/19 07/17/19 06:59 06:59 06:59 Intake Total 1510 300 Output Total 850 Balance 660 300 Result Diagrams: 07/16/19 11:54 07/16/19 16:12 Phys Exam - Physical Examination Constitutional: NAD cachectic appearing, missing teeth HEENT: PERRLA, moist MMs Respiratory: no wheezing, clear to auscultation bilateral murmur Musculoskeletal: no edema Neurological: non-focal, moves all 4 limbs Psychiatric: normal affect, A&O x 3 Dx/Plan (1) Hypotension Status: Acute (2) UTI (urinary tract infection) Status: Acute (3) Hyperkalemia Code(s): E87.5 - HYPERKALEMIA Status: Acute (4) Hyponatremia Code(s): E87.1 - HYPO-OSMOLALITY AND HYPONATREMIA Status: Acute (5) CKD (chronic kidney disease) Code(s): N18.9 - CHRONIC KIDNEY DISEASE, UNSPECIFIED Status: Acute (6) Cardiomyopathy Code(s): I42.9 - CARDIOMYOPATHY, UNSPECIFIED Status: Acute (7) CAD (coronary artery disease) Code(s): I25.10 - ATHSCL HEART DISEASE OF [place] CORONARY ARTERY W/O ANG PCTRS Status: Chronic (8) Tobacco abuse Code(s): Z72.0 - TOBACCO USE Status: Chronic - Plan Plan: 69 yo F with HTN, HFrEF with live vest here for hypotension #. Hypotension 2/2 UTI vs. Adrenal insufficiency vs. Iatrogenic -BPs stable, likely iatrogenic from multiple antihypertensives -Retsart coreg, slowly reintroduce as needs required -d/c solucortef -stale, transfer #. Pancytopenia -Has seen Dr. García -F/u on these records #. Pancreatic mass -obtain records, call office #. Anemia, likely mixed -Cont. home b9/b12 -Cont. home iron -Macrocytosis could be d/t h/o alcoholism #. CKD -Cr Downtrending, at baseline -Stable, monitor #. Malnutrition -BMI 16 -Nutrition consult, rx apprecatied #. CHFrEF with life vest -Chronic, stable -TTE on 05/2019 with EF of 25-29% -Euvolemic -Continue with outpt cardiology -Fluid restricted diet -Strict I/O #. Acute on chronic anemi -Hb 9.1, stable -EGD 05/2019 for melena-no source of bleeding -Check iron studies #. cHTN -Hold home meds, PRN antihypertensives #. 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 Seizure -resume keppra -get level Dvt ppx: SCD Dispo: >2 midnights Discussed wtih Dr. Rivera Addendum - Attending - Attending Attestation Date/Time: 07/16/19 2540 I personally evaluated the patient and discussed the management with Dr. Long I agree with the History, Examination, Assessment and Plan documented above with any addition or exceptions noted below. HD#1 Patient admitted for hypotension 2/2 medication over use vs infection Patient and mother both have difficulty remembering medications and regiments. Patient on multiple medications that can contribute to many complications if patient not careful. Hypotension now resolved. Will transfer to tele until electrolytes WNL. Will slowly restart BP meds throughout the day. CKD III with metabolic acidosis. Restart oral bicarb. Monitor closely. Hyperkalemia. Due to significant risk will d/c spironolactone. Give kayexalate. Trend electrolytes throughout the day. Nephro as needed. Severe malnutrition. Unknown cause. Has been worked up extensively. hx of EtOH abuse HRrEF. No acute changes. Monitor. LVEF 25%. Was placed on LIFEvest. Follow up with cards and discuss if ICD could be placed due to risk for some medications. Due to severe co-morbidities not able to tolerate all medications recommended by guidelines. Continue LIFEvest. Transfer to tele. BNP 46. UTI vs asymptomatic bacteruria. Patient is poor historian. No fever, chills. VS other than BP stable. Continue treatment. Awaiting culture results. Pancytopenia. Has been seen by [facility]. Will follow up with office. Pancreatic mass s/p bx. Will follow up. Requesting records. Transfer to tele. Monitor. Correct potassium. Transition to oral antibx. Follow up on social situation due to risk for complications. Follow up with [facility]. Kajal
[2019-07-16 12:17] VITALS: BMI 16.2
[2019-07-16 13:05] LABS: Hemoglobin 8.5 g/dL (12.0-16.0); Lymphocytes 11 % (21-51); MDiff Complete? YES; Macrocytosis SLIGHT = 6-15 cells (100X) (0-5/hpf); Mean Corpuscular HGB CONC 33.9 g/dL (32.0-36.0); Mean Corpuscular Hemoglobin 34.3 pg (27.0-31.0); Mean Platelet Volume 7.3 fL (7.4-10.4); Metamyelocyte 1 % (0-0); Monocytes 9 % (0-10); Neutrophil 79 % (42-75); Platelet Count 136 thou/uL (130-400); Platelet Morphology Comment Appears Adequate; RBC Distribution Width 15.6 % (11.5-14.5); Red Blood Cell (RBC) Count 2.48 mill/uL (4.20-5.40); White Blood Cell (WBC) Count 2.8 thou/uL (4.8-10.8)
[2019-07-16] MEDS: Carvedilol 25 MG TAB PO SCH (16:04)
--- NOTE | 2019-07-16 16:13 | CON ---
DATE OF CONSULTATION: HISTORY OF PRESENT ILLNESS: Dena Oconnell is a 69-year-old cachectic female, who was apparently brought to the ER with hypotension. She has been in and out of the hospital numerous times. This morning, blood pressure is now 153\76_, and respiratory rate is 18. She is eager to go home. Extensive medical history is well outlined in the previous records. Pertinent for cachexia. Etiology unclear. They felt it was some kind of her neoplastic process, otherwise. PAST MEDICAL HISTORY: Pertinent for seizure disorders, chronic liver disease, hypertension, chronic anemia, and renal failure. PAST SURGICAL HISTORY: Hysterectomy and left hip surgery. SOCIAL HISTORY: Tobacco abuse, half pack a day. HOME MEDICATIONS: Include; 1. Keppra 500. 2. Hydralazine 25. 3. Carbamazepine 150. 4. Thiamine. 5. Aldactone 25. 6. Zoloft 50. 7. NicoDerm. 8. Protonix 40. ALLERGIES: NONE. REVIEW OF SYSTEMS: Unremarkable. PHYSICAL EXAMINATION: VITAL SIGNS: As noticed, her blood pressure _153\76_ and respiratory rate of 18. CHEST: Reveal no wheezing or crackles. CARDIAC: Normal S1 and S2. No gallops. ABDOMEN: No masses. LABORATORY DATA: Creatinine 1.98. White count 1.7, H and H of 7 and 23, and platelet count 132. Cortisol level is 10. ASSESSMENT: 1. Hypertension, resolved. 2. Probably relatively associated chronic cachexia, chronic anemia, renal failure. I do not see any evidence of any infection at this stage. Chest x-ray did not show any acute infiltrates. PLAN: I would probably discontinue antibiotics. Ambulate. If she is stable, she can be discharged home in the next 24 to 48 hours. Job ID: [id number] [facility]
[2019-07-16 16:39] LABS: Potassium 4.4 mmol/L (3.5-5.1)
[2019-07-17] MEDS: Hydrocortisone Sod Succ/PF 100 mg/2 ml Vial IVP SCH (03:17)
[2019-07-17] MEDS: cefTRIAXone\\ROCEPHIN 1 GM in Sodium Chloride 0.9% 100 ML IVPB SCH (05:17)
[2019-07-17] MEDS: Nicotine 14 MG PATCH TD SCH (05:18)
--- NOTE | 2019-07-17 06:59 | PDOC.FM ---
- Subjective Subjective: Doing well today. Feels depressed b/c she knows "something is going on." Ready to go home - Objective MAR Reviewed: Yes Vital Signs & Weight: Vital Signs (12 hours) Temp Pulse Resp BP Pulse Ox 07/17/19 03:30 98.1 F 68 14 158/92 H 99 07/16/19 19:40 97.9 F 75 16 128/74 98 Weight Admit Weight 44.86 kg Weight 44.407 kg Most Recent Monitor Data Heart Rate from ECG 72 NIBP 162/103 NIBP BP-Mean 122 Respiration from ECG 15 SpO2 100 I&O: 07/15/19 07/16/19 07/17/19 06:59 06:59 06:59 Intake Total 1510 1200 Output Total 850 700 Balance 660 500 Result Diagrams: 07/17/19 09:17 07/17/19 09:17 Phys Exam - Physical Examination Constitutional: NAD HEENT: sclera anicteric Respiratory: no wheezing, clear to auscultation bilateral Cardiovascular: RRR Gastrointestinal: soft, non-tender Musculoskeletal: no edema Neurological: non-focal, moves all 4 limbs Deviation from normal: depressed affect Dx/Plan (1) Hypotension Status: Acute (2) UTI (urinary tract infection) Status: Acute (3) Hyperkalemia Code(s): E87.5 - HYPERKALEMIA Status: Acute (4) Hyponatremia Code(s): E87.1 - HYPO-OSMOLALITY AND HYPONATREMIA Status: Acute (5) CKD (chronic kidney disease) Code(s): N18.9 - CHRONIC KIDNEY DISEASE, UNSPECIFIED Status: Acute (6) Cardiomyopathy Code(s): I42.9 - CARDIOMYOPATHY, UNSPECIFIED Status: Acute (7) CAD (coronary artery disease) Code(s): I25.10 - ATHSCL HEART DISEASE OF [place] CORONARY ARTERY W/O ANG PCTRS Status: Chronic (8) Tobacco abuse Code(s): Z72.0 - TOBACCO USE Status: Chronic - Plan Plan: 69 yo F with HTN, HFrEF with live vest here for hypotension #. Iatrogenic hypotension -BPs stable, likely iatrogenic from multiple antihypertensives -Retsart coreg, slowly reintroduce as needs required -d/c solucortef -Monitor pressures today with d/c tomorrow if stable #. Uncomplicated UTI -Continue for 3 day rocephin course #. Pancytopenia -Has seen Dr. García -Pending PBS -F/u on these records outpt #. Pancreatic mass -obtain records, call office #. Anemia, likely mixed -Cont. home b9/b12 -Cont. home iron -Macrocytosis could be d/t h/o alcoholism #. CKD -Cr Downtrending, at baseline -Stable, monitor #. Malnutrition -BMI 16 -Nutrition consult, rx apprecatied #. CHFrEF with life vest -Chronic, stable -TTE on 05/2019 with EF of 25-29% -Euvolemic -Continue with outpt cardiology -Fluid restricted diet -Strict I/O #. Acute on chronic anemi -Hb 9.1, stable -EGD 05/2019 for melena-no source of bleeding -Check iron studies #. cHTN -Hold home meds, PRN antihypertensives #. 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 Seizure -resume keppra -get level #. Depression -Will discuss further management of this outpatient Dvt ppx: SCD Dispo: Monitor BPs today, patient at high risk for rehospitalization. Call mother to coordinate care. Patient may need home health which we can set up at our clinic outpatient. Addendum - Attending - Attending Attestation Date/Time: 07/17/19 7040 I personally evaluated the patient and discussed the management with Dr. Long. I agree with the History, Examination, Assessment and Plan documented above with any addition or exceptions noted below. Patient reports doing well. Her BP is improved. She denies complaints. She will remain off Solucortef and we will monitor her BP today. Possible discharge in next 1-2 days.
[2019-07-17] MEDS: levETIRAcetam 500 MG TAB PO SCH ×2 (08:21→20:17)
[2019-07-17] MEDS: Thiamine 100 MG TAB PO SCH (08:21)
[2019-07-17] MEDS: Carvedilol 25 MG TAB PO SCH ×2 (08:21→16:17)
[2019-07-17] MEDS: Sodium Bicarbonate Tab 325 MG TAB PO SCH ×3 (08:21→20:17)
[2019-07-17] MEDS: Ferrous Sulfate 325 MG TAB PO SCH (08:21)
[2019-07-17] MEDS: carBAMazepine 100 mg Chewable Tablet PO SCH (08:21)
[2019-07-17] MEDS: Folic Acid 1 MG TAB PO SCH (08:22)
[2019-07-17] MEDS: Stress 600 With Zinc 1 TAB PO SCH (08:22)
[2019-07-17 09:25] LABS: #Lymphocytes 0.6 thou/uL (1.20-3.40); #Monocytes 0.2 thou/uL (0.11-0.59); %Basophils 0.2 % (0.0-1.0); %Eosinophils 0.4 % (0.0-10.0); %Lymphocytes 20.6 % (21.0-51.0); %Monocytes 7.8 % (0.0-10.0); Hemoglobin 8.8 g/dL (12.0-16.0); Mean Corpuscular HGB CONC 34.4 g/dL (32.0-36.0); Mean Corpuscular Hemoglobin 35.2 pg (27.0-31.0); Mean Platelet Volume 7.8 fL (7.4-10.4); Platelet Count 153 thou/uL (130-400); RBC Distribution Width 15.8 % (11.5-14.5); Red Blood Cell (RBC) Count 2.49 mill/uL (4.20-5.40); White Blood Cell (WBC) Count 2.8 thou/uL (4.8-10.8)
[2019-07-17 09:47] LABS: Anion Gap 12 mmol/L (10-20); BUN (Urea Nitrogen) 58 mg/dL (9.8-20.1); Calc. Creatinine Clearance 17 mL/min (70-130); Calcium 9.1 mg/dL (7.8-10.44); Carbon Dioxide 26 mmol/L (23-31); Chloride 105 mmol/L (98-107); Estimated GFR-MDRD 26; Glucose 154 mg/dL (80-115); Potassium 3.6 mmol/L (3.5-5.1); Sodium 139 mmol/L (136-145)
[2019-07-18 04:37] LABS: Anion Gap 12 mmol/L (10-20); BUN (Urea Nitrogen) 56 mg/dL (9.8-20.1); Calc. Creatinine Clearance 16 mL/min (70-130); Calcium 8.5 mg/dL (7.8-10.44); Carbon Dioxide 25 mmol/L (23-31); Chloride 106 mmol/L (98-107); Estimated GFR-MDRD 24; Glucose 109 mg/dL (80-115); Potassium 3.3 mmol/L (3.5-5.1); Sodium 140 mmol/L (136-145)
[2019-07-18] MEDS: cefTRIAXone\\ROCEPHIN 1 GM in Sodium Chloride 0.9% 100 ML IVPB SCH (05:47)
[2019-07-18] MEDS: Nicotine 14 MG PATCH TD SCH (05:48)
[2019-07-18] MEDS ORDERED: Potassium Chloride 20 MEQ TAB PO SCH (07:45)
[2019-07-18] MEDS: carBAMazepine 100 mg Chewable Tablet PO SCH (08:34)
[2019-07-18] MEDS: Sodium Bicarbonate Tab 325 MG TAB PO SCH (08:34)
[2019-07-18] MEDS: Stress 600 With Zinc 1 TAB PO SCH (08:34)
[2019-07-18] MEDS: levETIRAcetam 500 MG TAB PO SCH (08:35)
[2019-07-18] MEDS: Carvedilol 25 MG TAB PO SCH (08:35)
[2019-07-18] MEDS: Ferrous Sulfate 325 MG TAB PO SCH (08:35)
[2019-07-18] MEDS: Folic Acid 1 MG TAB PO SCH (08:35)
[2019-07-18] MEDS: Thiamine 100 MG TAB PO SCH (08:35)
[2019-07-18] MEDS ORDERED: [UNRECOGNIZED DRUG - OTHER] PO SCH (09:00)
[2019-07-18] MEDS ORDERED: VITAMIN D2 PO SCH (09:00)
[2019-07-18] MEDS ORDERED: Non-Formulary Item 1 EACH (Cyanocobalamin (Vitamin B-12) [Vitamin B-12] 1,000 MCG) PO SCH (09:00)
[2019-07-18] MEDS ORDERED: ERGOCALCIFEROL PO SCH (09:00)
[2019-07-18] MEDS ORDERED: Cyanocobalamin (Vitamin B-12) 1,000 MCG TAB PO SCH (09:00)
[2019-07-18] MEDS ORDERED: NIFEdipine XL 60 MG TAB PO SCH (09:00)
[2019-07-18] MEDS ORDERED: NIFEdipine XL 30 MG TAB PO SCH (09:00)
--- NOTE | 2019-07-18 09:08 | PDOC.FM ---
Addendum entered and electronically signed by Deidre Long MD 07/18/19 09:52 : HypoK-replace oral HypoMg-replace Original Note: - Subjective Subjective: Doing well No concerns Feeling well Wanting to go home - Objective MAR Reviewed: Yes Vital Signs & Weight: Vital Signs (12 hours) Temp Pulse Resp BP Pulse Ox 07/18/19 08:25 98.1 F 69 16 158/90 H 98 07/18/19 03:00 98 F 71 16 158/84 H 98 07/17/19 23:40 97.6 F 70 20 148/84 H 99 Weight Admit Weight 44.86 kg Weight 44.225 kg Most Recent Monitor Data Heart Rate from ECG 72 NIBP 162/103 NIBP BP-Mean 122 Respiration from ECG 15 SpO2 100 I&O: 07/17/19 07/18/19 07/19/19 06:59 06:59 06:59 Intake Total 1200 1300 Output Total 700 400 Balance 500 900 Result Diagrams: 07/17/19 09:17 07/18/19 03:41 Phys Exam - Physical Examination Constitutional: NAD HEENT: PERRLA, moist MMs cachectic appearing Respiratory: no wheezing, clear to auscultation bilateral murmur Musculoskeletal: no edema Neurological: non-focal, moves all 4 limbs Deviation from normal: blunted affect Dx/Plan (1) Hypotension Status: Acute (2) UTI (urinary tract infection) Status: Acute (3) Hyperkalemia Code(s): E87.5 - HYPERKALEMIA Status: Acute (4) Hyponatremia Code(s): E87.1 - HYPO-OSMOLALITY AND HYPONATREMIA Status: Acute (5) CKD (chronic kidney disease) Code(s): N18.9 - CHRONIC KIDNEY DISEASE, UNSPECIFIED Status: Acute (6) Cardiomyopathy Code(s): I42.9 - CARDIOMYOPATHY, UNSPECIFIED Status: Acute (7) CAD (coronary artery disease) Code(s): I25.10 - ATHSCL HEART DISEASE OF [place] CORONARY ARTERY W/O ANG PCTRS Status: Chronic (8) Tobacco abuse Code(s): Z72.0 - TOBACCO USE Status: Chronic - Plan Plan: 69 yo F with HTN, HFrEF with live vest here for hypotension #. Iatrogenic hypotension -BPs stable, likely iatrogenic from multiple antihypertensives -Retsart coreg, slowly reintroduce as needs required -d/c solucortef -Monitor pressures today with d/c tomorrow if stable #. Uncomplicated UTI -Completed 3 day rocephin course #. Pancytopenia -Has seen Dr. García -Pending PBS -F/u on these records outpt #. Pancreatic mass -obtain records, call office -need outpatient follow up #. Anemia, likely mixed -Cont. home b9/b12 -Cont. home iron -Macrocytosis could be d/t h/o alcoholism #. CKD -Stable, monitor #. Malnutrition -BMI 16 -Nutrition consult, rx apprecatied #. CHFrEF with life vest -Chronic, stable -TTE on 05/2019 with EF of 25-29% -Euvolemic -Continue with outpt cardiology -Fluid restricted diet -Strict I/O #. Acute on chronic anemi -Hb 9.1, stable -EGD 05/2019 for melena-no source of bleeding -Check iron studies #. cHTN -Hold home meds, PRN antihypertensives #. 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 Seizure -resume keppra -get level #. Depression -Will discuss further management of this outpatient Dvt ppx: SCD Dispo: BPs stable. Home later today once can get life vest on today. Addendum - Attending - Attending Attestation Date/Time: 07/18/19 1007 I personally evaluated the patient and discussed the management with Dr. Long. I agree with the History, Examination, Assessment and Plan documented above with any addition or exceptions noted below. Patient doing well. BP controlled with current meds. She is wanting to go home. Discuss care with family and possible dc today. Her renal function is overall stable and she should follow up with nephrology.
[2019-07-18] MEDS ORDERED: Magnesium 2 GM/50 ML 2 GM in Premix Bag 1 BAG IVPB SCH (10:00)
[2019-07-18 11:10] VITALS: BP 122/70; TEMP 98.4
--- NOTE | 2019-07-18 16:14 | EKG ---
Test Reason : Blood Pressure : / mmHG Vent. Rate : 078 BPM Atrial Rate : 078 BPM P-R Int : 254 ms QRS Dur : 094 ms QT Int : 424 ms P-R-T Axes : 032 018 056 degrees QTc Int : 483 ms Sinus rhythm with 1st degree A-V block Otherwise normal ECG Confirmed by NIYA DOAN, EDU ([id number]), staff editor QUINTEN FAUST ([id number]) on 07/18/2019 4:13:04 PM Referred By: Confirmed By:EDU NÚÑEZ MD
--- NOTE | 2019-07-19 03:07 | PQF ---
DIONISIO VALADEZ AMANDA MD [id number] CLINICAL DOCUMENTATION CLARIFICATION FORM: POST DISCHARGE Addendum to original discharge summary date: ____ Late entry note date: __ DATE: 07/19/19 ATTN: Bessie Stoddard Please exercise your independent, professional judgment in responding to the clarification form. Clinical indicators are provided on the bottom of this form for your review Can you please identify the etiology of Hypotension if due to: Please check appropriate box(s): [x ] Hypotension due to overmedication of antihypertensive drug [ ] Hypotension due to adverse effect of antihypertensive drug [ ] Hypotension due Sepsis [ ] Other diagnosis [ ] Unable to determine In addition, please specify: Present on Admission (POA): [ x ] Yes [ ] No [ ] Unable to determine For continuity of documentation, please document condition throughout progress notes and discharge summary. Thank You. CLINICAL INDICATORS - SIGNS / SYMPTOMS / LABS Family medicine H&P p1 07/15 present here for Low Bps Family [facility] H&P p1 07/15 On several antihypertensives in which mom, states she tool presribed dose Family medicine H&P p1 07/15 Per ER report patient had LOC episode, did not hit head, Pt did not remember this. Family medicine H&P p4 07/15 Hypotension 2/2 UTI vs adrenal insufficiency vs Iatrogenic H&P p2 07/15 At this time Sepsis has resolved due to IV fluids Family medicine PN p4 07/16 Hypotension 2/2 medication over use vs infection RISK FACTORS Family medicine H&P p1 07/15 HX of HTN and CHF Family medicine H&P p1 07/15 Family medicine H&P p5 07/15 - UTI Family medicine H&P p6 07/15 - HORTENCIA on CKD H&P p2 07/15 Sepsis secondary to UTI TREATMENTS: Family medicine H&P p1 07/15 - 30cc/kg fluid bolus Family medicine H&P p1 07/15 - Given Decadron Family medicine H&P p5 07/15 - Hold antihypertensive drugs OCT 28 IV Levaquin (This form is maintained as a part of the permanent medical record) 2014 [employer]. All Rights Reserved [email or web address] [not provided] MTDD
--- NOTE | 2019-07-19 03:07 | PQF ---
DIONISIO VALADEZ AMANDA MD [id number] CLINICAL DOCUMENTATION CLARIFICATION FORM: POST DISCHARGE Addendum to original discharge summary date: ____ Late entry note date: __ DATE: 07/19/19 ATTN: Bessie Stoddard Please exercise your independent, professional judgment in responding to the clarification form. Clinical indicators are provided on the bottom of this form for your review Please check appropriate box(s) to clarify if the following diagnosis has been ruled in or ruled out: Sepsis [ ] Ruled in diagnosis [ ] Continue to treat [ ] Resolved [ ] Ruled out diagnosis [ ] Cannot rule out diagnosis [x ] Other diagnosis hypotension 2/2 overmedication____ [ ] Unable to determine In addition, please specify: Present on Admission (POA): [ x] Yes [ ] No [ ] Unable to determine For continuity of documentation, please document condition throughout progress notes and discharge summary. Thank You. CLINICAL INDICATORS - SIGNS / SYMPTOMS / LABS [facility] medicine H&P p1 07/15 present here for Low Bps [facility] H&P p1 07/15 On several antihypertensives in which mom, states she tool presribed dose [facility] medicine H&P p1 07/15 Per ER report patient had LOC episode, did not hit head, Pt did not remember this. Family medicine H&P p4 07/15 Hypotension 2/2 UTI vs adrenal insufficiency vs Iatrogenic H&P p2 07/15 At this time Sepsis has resolved due to IV fluids Family medicine PN p4 07/16 Hypotension 2/2 medication over use vs infection RISK FACTORS Family medicine H&P p1 07/15 HX of HTN and CHF Family medicine H&P p1 07/15 Family medicine H&P p5 07/15 - UTI Family medicine H&P p6 07/15 - HORTENCIA on CKD H&P p2 07/15 Sepsis secondary to UTI TREATMENTS: [facility] medicine H&P p1 07/15 - 30cc/kg fluid bolus Family medicine H&P p1 07/15 - Given Decadron Family medicine H&P p5 07/15 - Hold antihypertensive drugs OCT 28 IV Levaquin (This form is maintained as a part of the permanent medical record) 2014 [employer]. All Rights Reserved [email or web address] [not provided] MTDD
--- NOTE | 2019-07-21 11:02 | DIS ---
DATE OF ADMISSION: 07/15/2019 DATE OF DISCHARGE: 07/18/2019 ADMITTING ATTENDING: Arnel Rivera MD DISCHARGE ATTENDING: Obed Kidd MD CONSULTS: 1. Palliative care. 2. Physical Therapy. 3. Occupational therapy. 4. Pulmonology, Dr Hernandez. PROCEDURES AND IMAGING: Chest x-ray: Subtle nodular densities overlying the lower chest bilaterally likely representing nipple shadows. This may be further assessed on followup exam with nipple markers in place. No focal consolidation. PRIMARY DIAGNOSES: 1. Iatrogenic hypotension, likely secondary to medication induced. 2. Uncomplicated urinary tract infection. 3. Depression. SECONDARY DIAGNOSES: 1. Seizure disorder. 2. Tobacco abuse. 3. Chronic hypertension. 4. Acute on chronic anemia. 5. Chronic kidney disease 4. 6. Congestive heart failure with reduced ejection fraction with LifeVest. 7. Malnutrition. 8. Pancreatic mass/cancer? 9. Pancytopenia. DISCHARGE MEDICATIONS: 1. Coreg 25 mg p.o. b.i.d. 2. Nicardipine 60 mg p.o. daily. 3. Protonix 40 mg p.o. daily. 4. Vitamin D. 5. Senokot. 6. Sodium bicarbonate 650 mg p.o. t.i.d. 7. Nicotine patch 14 mg transdermal. 8. Keppra 500 mg p.o. b.i.d. 9. Folic acid. 10. Carbamazepine 150 mg p.o. daily. 11. B complex. 12. Ferrous sulfate 325 mg p.o. daily. 13. Sertraline 50 mg p.o. daily. 14. Thiamine 100 mg p.o. daily. DISCONTINUED MEDICATIONS: Several antihypertensive medications were discontinued. The patient is probably on too strong of dosing. This includes; 1. Spironolactone 25 mg p.o. daily. 2. Isosorbide (Isordil) 20 mg p.o. t.i.d. HPI/HOSPITAL COURSE: Ms. Dena Oconnell is a 69-year-old female with chronic alcohol abuse, cachexia, suspected pancreatic mass versus cancer, and CHF with reduced ejection fraction with LifeVest, who presented from the clinic for symptomatic low blood pressure. She was sent over to the ED. Blood pressures were initially in the 80s/50s with borderline MAPs. HYPOTENSION: She was admitted for hypotension 2/2 adrenal suppression vs. sepsis from UTI vs. medication induced. After further workup it's likely the cause of her low blood pressures was from her antihypertensives. She is on a hefty regimen due to a history of resistant HTN. No reason to believe she took more than prescribed. Unsure as to why is needing a lower dose of her antihypertensives. Patient is unable to provide insight into this and we have limited records of her healthcare both in the hospital and clinic. She was sent out on nicardepine and coreg. She will need further titration of her BP meds pending home blood pressures. Sprionolactone temporarily discontinued due to hyperkalemia. CACHEXIA: The patient is cachectic appearing with a BMI of 15. Patient has depressed affect. Started on nutrition shakes. This low body weight could be 2/2 to depression vs. chronic drug abuse vs. possible pancreatic malignancy PANCREATIC MASS VS. CANCER? Per Dr. Hernandez patient has been seen by Dr. Caldwell for this. She apparently underwent EGD with biopsy at [facility], in which there supposedly no cancer found Patient and mother are poor historians. Recommend obtaining records and touching base with Dr. Caldwell. CKD: The patient has CKD IV vs. ESRD, in which she has seen Dr. Buitrago in the past. We would recommend re-referring due to poor renal function. No major electrolyte abnormalities during hospitalization. CHFrEF: The patient was discharged from the hospital with LifeVest a few months ago. Has not followed up with mechanical shovel operator. Recommend following up. SOCIAL/ HOME SITUATION; To be honest, the patient and her mother did not seem to have too much knowledge into what was going on. It would really beneficial to get set up with a consistent PCP at our clinic to ensure that they are set up with all the specialists and further coordination of care. The patient would also benefit from advanced directives discussion with her mom and herself. DISPOSITION: Stable. DISCHARGE INSTRUCTIONS: 1. Location: Home. 2. Diet: Heart healthy, renal diet, fluid restricted. 3. Activity: Ad alexander as tolerated. FOLLOWUP: 1. Please follow up with virtual customer assistant, Dr. Buitrago. 2. Please follow up with mechanical shovel operator. 3. Please follow up with PCP, Dr. Leon Thapa at [facility]. 4. Please check blood pressures daily and take hydralazine p.r.n. if systolic blood pressure greater than 180 as discussed. Job ID: [id number] [facility]ENTER[facility]iana
[2019-07-21 16:08] LABS: Renin Activity 0.352 ng/mL/hr (0.167-5.380)
== END 2019-07-18 15:08 | disposition home or self-care (01) | DRG 917 ==
LOC: ERS 11:35 → IMCU/EMU 19:55 → 2NO 07-16 17:22
PROVIDERS: ADMIT Family Medicine; ATTEND Family Medicine
DX: T46.5X1A Poisoning by other antihypertensive drugs, accidental (unintentional), initial encounter (principal); E43 Unspecified severe protein-calorie malnutrition; I13.0 Hypertensive heart and chronic kidney disease with heart failure and stage 1 through stage 4 chronic kidney disease, or unspecified chronic kidney disease; N39.0 Urinary tract infection, site not specified; I42.9 Cardiomyopathy, unspecified; I50.22 Chronic systolic (congestive) heart failure; E87.1 Hypo-osmolality and hyponatremia; N17.9 Acute kidney failure, unspecified; R64 Cachexia; D61.818 Other pancytopenia; Z68.1 Body mass index [BMI] 19.9 or less, adult; E87.2 Acidosis; G40.909 Epilepsy, unspecified, not intractable, without status epilepticus; N18.3 Chronic kidney disease, stage 3 (moderate); D63.1 Anemia in chronic kidney disease; F17.200 Nicotine dependence, unspecified, uncomplicated; E87.5 Hyperkalemia; I25.10 Atherosclerotic heart disease of native coronary artery without angina pectoris; K86.89 Other specified diseases of pancreas; E83.42 Hypomagnesemia; I95.2 Hypotension due to drugs; Z79.899 Other long term (current) drug therapy; Z90.710 Acquired absence of both cervix and uterus; Z91.041 Radiographic dye allergy status
CPT/HCPCS: 36415; 71045; 80048; 80053; 80177; 80306; 80307; 81003; 81015; 82024; 82088; 82533; 82550; 82553; 82607; 82728; 82746; 83036; 83540; 83605; 83690; 83735; 83880; 84145; 84244; 84443; 84484; 85007; 85025; 85027; 85060; 87040; 87077; 87086; 87186; 87804; 93005; A4353; J0696; J1100; J1720; J1956; J2310; J3475; J3490

== ENCOUNTER 2019-08-15 14:56 | Emergency (ER) | payer MEDICARE ==
[2019-08-15 15:46] LABS: #Lymphocytes 0.5 thou/uL (1.20-3.40); #Monocytes 0.2 thou/uL (0.11-0.59); #Neutrophils 1.6 thou/uL (1.40-6.50); %Basophils 0.4 % (0.0-1.0); %Eosinophils 1.8 % (0.0-10.0); %Lymphocytes 19.9 % (21.0-51.0); %Monocytes 9.8 % (0.0-10.0); %Neutrophils 68.2 % (42.0-75.0); Hemoglobin 8.4 g/dL (12.0-16.0); Mean Corpuscular HGB CONC 33.5 g/dL (32.0-36.0); Platelet Count 85 thou/uL (130-400); RBC Distribution Width 16.9 % (11.5-14.5); Red Blood Cell (RBC) Count 2.26 mill/uL (4.20-5.40); White Blood Cell (WBC) Count 2.3 thou/uL (4.8-10.8)
[2019-08-15 15:53] LABS: ALT (SGPT) Less than 7 U/L (8-55); AST (SGOT) 19 U/L (5-34); Albumin 3.7 g/dL (3.4-4.8); Alkaline Phosphatase 103 U/L (40-110); Anion Gap 22 mmol/L (10-20); BUN (Urea Nitrogen) 56 mg/dL (9.8-20.1); Bilirubin, Total 0.4 mg/dL (0.2-1.2); CK (CPK) 37 U/L (29-168); Calc. Creatinine Clearance 0 mL/min (70-130); Calcium 9.1 mg/dL (7.8-10.44); Carbon Dioxide 22 mmol/L (23-31); Chloride 100 mmol/L (98-107); Estimated GFR-MDRD 22; Globulin 2.8 g/dL (2.4-3.5); Glucose 108 mg/dL (80-115); Potassium 4.3 mmol/L (3.5-5.1); Protein, Total 6.5 g/dL (6.0-8.3); Sodium 140 mmol/L (136-145)
--- NOTE | 2019-08-15 15:56 | RAD ---
Exam: Chest one view HISTORY:Weight loss. Smoker. Evaluate for cancer. Comparison: 07/15/2019, 06/15/2019 FINDINGS: Cardiac silhouette: Normal Aorta: Atherosclerosis and elongation of the aorta, unchanged Pulmonary vessels: Normal Costophrenic angles: Clear LUNGS: No masses or consolidation. Chronic changes in the lung parenchyma. Pneumothorax: None Osseous abnormalities: None IMPRESSION: 1. Atherosclerosis 2. No significant interval change. No acute cardiopulmonary process. 3. Given patient's history, nonemergent low-dose screening lung CT is recommended.
[2019-08-15 16:08] LABS: Anisocytosis SLIGHT = 6-15 cells (100X) (0-5/hpf); MDiff Complete? YES; Macrocytosis SLIGHT = 6-15 cells (100X) (0-5/hpf); Platelet Morphology Comment Appears Decreased; Polychromasia SLIGHT = 2-3 cells (100X) (0-2/hpf)
== END 2019-08-15 18:30 | disposition home or self-care (01) ==
LOC: ERS 14:56
DX: E86.0 Dehydration (principal); D64.89 Other specified anemias; I12.9 Hypertensive chronic kidney disease with stage 1 through stage 4 chronic kidney disease, or unspecified chronic kidney disease; N18.9 Chronic kidney disease, unspecified; F17.210 Nicotine dependence, cigarettes, uncomplicated; Z79.899 Other long term (current) drug therapy; Z79.891 Long term (current) use of opiate analgesic
CPT/HCPCS: 36415; 71045; 80053; 82550; 85025; 93005; 96360

== ENCOUNTER 2019-08-28 03:31 | Inpatient (IN) | payer MEDICARE ==
[2019-08-28 04:12] LABS: Bilirubin Negative (Negative); Blood, Urine Negative (Negative); Clarity Clear (Clear); Glucose, Urine (Dipstick) Normal (Negative); Leukocyte Negative Leu/uL (Negative); Nitrite Negative (Negative); Protein, Urine (Dipstick) Negative (Neg-Trace); Urobilinogen Normal mg/dL (Less than 2)
[2019-08-28 04:22] LABS: Amphetamine Not Detected (NotDetected); Barbiturates Screen Not Detected (NotDetected); Benzodiazepine Screen Not Detected (NotDetected); Cocaine Metabolite Screen Not Detected (NotDetected); Medtox Control Line Valid? VALID (VALID); Medtox Reader # READER 1; Methadone Not Detected (NotDetected); Methamphetamine Not Detected (NotDetected); Opiate Screen Not Detected (NotDetected); Oxycodone Screen Not Detected (NotDetected); Phencyclidine (PCP) Not Detected (NotDetected); THC/Cannabinoid Screen Not Detected (NotDetected); Tricyclic Screen Not Detected (NotDetected)
[2019-08-28 05:07] LABS: #Eosinphils 0.1 thou/uL (0.0-0.7); #Lymphocytes 0.4 thou/uL (1.20-3.40); #Monocytes 0.1 thou/uL (0.11-0.59); #Neutrophils 1.2 thou/uL (1.40-6.50); %Eosinophils 2.9 % (0.0-10.0); %Lymphocytes 22.3 % (21.0-51.0); %Monocytes 7.6 % (0.0-10.0); %Neutrophils 67.2 % (42.0-75.0); Hemoglobin 7.9 g/dL (12.0-16.0); Mean Corpuscular HGB CONC 34.3 g/dL (32.0-36.0); Mean Corpuscular Hemoglobin 37.4 pg (27.0-31.0); Mean Platelet Volume 8.4 fL (7.4-10.4); Platelet Count 122 thou/uL (130-400); RBC Distribution Width 16.4 % (11.5-14.5); Red Blood Cell (RBC) Count 2.12 mill/uL (4.20-5.40); White Blood Cell (WBC) Count 1.8 thou/uL (4.8-10.8)
[2019-08-28 05:24] LABS: ALT (SGPT) Less than 7 U/L (8-55); AST (SGOT) 20 U/L (5-34); Albumin 3.5 g/dL (3.4-4.8); Alcohol Less than 10 mg/dL (Less than 10); Alkaline Phosphatase 117 U/L (40-110); Anion Gap 24 mmol/L (10-20); BUN (Urea Nitrogen) 50 mg/dL (9.8-20.1); Bilirubin, Total 0.3 mg/dL (0.2-1.2); Calc. Creatinine Clearance 0 mL/min (70-130); Carbon Dioxide 16 mmol/L (23-31); Chloride 102 mmol/L (98-107); Estimated GFR-MDRD 27; Globulin 3.1 g/dL (2.4-3.5); Glucose 75 mg/dL (80-115); Lipase 711 U/L (8-78); Potassium 4.8 mmol/L (3.5-5.1); Protein, Total 6.6 g/dL (6.0-8.3); Sodium 137 mmol/L (136-145)
[2019-08-28 05:35] LABS: Acetaminophen Less than 6.0 mcg/mL (10.0-30.0); Alcohol Less than 10 mg/dL (Less than 10); Salicylate Less than 8.0 mg/dL (15.0-30.0)
--- NOTE | 2019-08-28 06:16 | PDOC.FPRHP ---
- History of Present Illness Chief Complaint: chest pain, abdominal pain History of Present Illness: Dena Oconnell is a 69 year old F with a PMH of HFrEF (last echo in 05/2019, EF 20 -25%), Epilepsy, HTN, Anemia, Liver disease, Tobacco and alcohol abuse who presented to the ED with a 1 day history of epigastric pain. Pt is a poor historian, falls asleep during discussion. Does not recall what she was doing at onset of pain. She was drinking alcohol yesterday. Daily drinker. Pain is sharp. No radiation. Associated subjective fever, chills, nausea, vomiting. Denies dysuria, falls, trauma, GI bleeding. In the ED pt was found to have an elevated lipase and started on 500 ml fluid boluses. She did not appear fluid overloaded per ED team. - Allergies/Adverse Reactions Allergies Allergy/AdvReac Type Severity Reaction Status Date / Time Gadolinium-Containing AdvReac Mild Emesis Verified 04/28/18 22:32 Contrast Medi - Home Medications Medication Instructions Recorded Confirmed Type Thiamine 100 mg PO DAILY #30 tab 03/10/18 07/15/19 Rx Sertraline HCl 50 mg PO DAILY 09/17/18 07/15/19 History B1/B2/Niacin/B12/Protease 1,000 mcg PO DAILY 05/27/19 07/15/19 History [B-Complex with B-12] Ferrous Sulfate [Iron] 325 mg PO DAILY 05/27/19 07/15/19 History carBAMazepine [Carbamazepine] 150 mg PO DAILY 05/27/19 07/15/19 History Carvedilol [Coreg] 25 mg PO BID-WM tab 06/04/19 07/15/19 Rx Folic Acid [Folvite] 1 mg PO DAILY tab 06/04/19 07/15/19 Rx levETIRAcetam [Keppra] 500 mg PO BID tab 06/04/19 07/15/19 Rx Acetaminophen [Tylenol Regular 650 mg PO Q4H PRN tab 06/19/19 07/15/19 Rx Strength] NIFEdipine [Procardia XL] 60 mg PO DAILY #30 tab 06/19/19 07/15/19 Rx Nicotine [Nicoderm CQ] 14 mg TD 0600 #28 patch 06/19/19 07/15/19 Rx Pantoprazole [Protonix] 40 mg PO DAILY #0 06/19/19 07/15/19 Rx Sennosides/Docusate Sodium 2 tab PO BIDPRN PRN #30 tab 06/19/19 07/15/19 Rx [Senokot S] Sodium Bicarbonate [Bicarbonate, 650 mg PO TID #90 tab 06/19/19 07/15/19 Rx Sodium] Cyanocobalamin (Vitamin B-12) 1,000 mcg PO DAILY 07/15/19 07/16/19 History [Vitamin B-12] Ergocalciferol (Vitamin D2) 4,000 unit PO DAILY 07/15/19 07/15/19 History [Vitamin D2] NIFEdipine [Procardia XL] 60 mg PO DAILY tab 07/18/19 Rx - History PMHx: HFrEF (echo in 05/2019, EF 20-25%), Liver disease, HTN, Epilepsy, Tobacco and alcohol abuse PSHx: Hysterectomy, L Hip Replacement FHx: Father - HI at 62; Mother - GERD Social: Drinks alcohol daily, 1/2 ppd smoker, denies drugs, lives with mother - Review of Systems General: reports: fever/chills, weight/appetite/sleep changes Eyes: denies: eye pain, vision changes ENT: denies: nasal congestion, rhinorrhea Respiratory: denies: cough, congestion, shortness of breath Cardiovascular: denies: chest pain, palpitation, edema Gastrointestinal: reports: nausea, vomiting, diarrhea, abdominal pain. denies: GI bleeding Genitourinary: denies: dysuria, polyuria Skin: denies: rashes, lesions Musculoskeletal: denies: pain, tenderness, stiffness, swelling Neurological: denies: numbness, syncope, seizure, weakness Psychological: denies: anxiety, depression - Vital signs BP: 164/94 HR: 72 RR: 16 Tmax: 98.7 Pox: 98% on RA Wt: 44 kg - Physical Exam Constitutional: NAD, awake, alert and oriented, other (thin appearing) HEENT: normocephalic and atraumatic, PERRLA, EOMI, normal nasal mucosa, MMM Neck: supple, FROM, no JVD Heart: RRR, normal S1/S2, no murmurs/rubs/gallops Lungs: CTAB, no respiratory distress, good air movement, no rales/rhonchi, no wheezing Abdomen: soft, bowel sounds present, no masses/distention -Abdomen: epigastric TTP, normoactive BSs, no rigidity or guarding, no rebound Musculoskeletal: normal structure, normal tone Neurological: no focal deficit, CN II-XII intact Skin: no rash/lesions, good turgor, capillary refill <2 seconds Heme/Lymphatic: no unusual bruising or bleeding, no purpura Psychiatric: other (fatigued, repeatly fell asleep) FMR H&P: Results - Labs Result Diagrams: 08/28/19 04:17 08/28/19 04:17 Lab results: WBC 1.8 thou/uL (4.8-10.8) L 08/28/19 04:17 Hgb 7.9 g/dL (12.0-16.0) L 08/28/19 04:17 Hct 23.1 % (36.0-47.0) L 08/28/19 04:17 MCV 109.0 fL (78.0-98.0) H 08/28/19 04:17 Plt Count 122 thou/uL (130-400) L 08/28/19 04:17 Neutrophils % 67.2 % (42.0-75.0) 08/28/19 04:17 Sodium 137 mmol/L (136-145) 08/28/19 04:17 Potassium 4.8 mmol/L (3.5-5.1) 08/28/19 04:17 Chloride 102 mmol/L (98-107) 08/28/19 04:17 Carbon Dioxide 16 mmol/L (23-31) L 08/28/19 04:17 BUN 50 mg/dL (9.8-20.1) H 08/28/19 04:17 Creatinine 2.21 mg/dL (0.6-1.1) H 08/28/19 04:17 Glucose 75 mg/dL (80-115) L 08/28/19 04:17 Calcium 9.0 mg/dL (7.8-10.44) 08/28/19 04:17 Total Bilirubin 0.3 mg/dL (0.2-1.2) 08/28/19 04:17 AST 20 U/L (5-34) 08/28/19 04:17 ALT Less than 7 U/L (8-55) L 08/28/19 04:17 Alkaline Phosphatase 117 U/L (40-110) H 08/28/19 04:17 B-Natriuretic Peptide 47.4 pg/mL (0-100) 08/28/19 04:17 Serum Total Protein 6.6 g/dL (6.0-8.3) 08/28/19 04:17 Albumin 3.5 g/dL (3.4-4.8) 08/28/19 04:17 Lipase 711 U/L (8-78) H 08/28/19 04:17 Urine Ketones 10 mg/dL (Negative) A 08/28/19 03:52 Urine Blood Negative (Negative) 08/28/19 03:52 Urine Nitrite Negative (Negative) 08/28/19 03:52 Ur Leukocyte Esterase Negative Gunner/uL (Negative) 08/28/19 03:52 - EKG Interpretation EKG: NSR with 1st degree AV block FMR H&P: A/P - Problem List (1) Pancreatitis Current Visit: Yes Status: Acute Code(s): K85.90 - ACUTE PANCREATITIS WITHOUT NECROSIS OR INFECTION, UNSP (2) CKD (chronic kidney disease) Current Visit: No Status: Acute Code(s): N18.9 - CHRONIC KIDNEY DISEASE, UNSPECIFIED (3) Cardiomyopathy Current Visit: Yes Status: Acute Code(s): I42.9 - CARDIOMYOPATHY, UNSPECIFIED (4) Pancytopenia Current Visit: Yes Status: Acute Code(s): D61.818 - OTHER PANCYTOPENIA (5) Pancreatic mass Current Visit: No Status: Chronic (6) Protein-calorie malnutrition, severe Current Visit: Yes Status: Chronic Code(s): E43 - UNSPECIFIED SEVERE PROTEIN -CALORIE MALNUTRITION (7) Tobacco abuse Current Visit: No Status: Chronic Code(s): Z72.0 - TOBACCO USE - Plan Pt is a 69 yo female with PMH significant for CHF w/ lifevest placement, CKD, pancytopenia, pancreatic mass, malnutrition, HTN, and epilepsy who presents for acute abdominal and chest pain: # Pancreatitis # Abdominal Pain Lipase 711 likely secondary to mass vs alcohol Previous hx of pancreatic mass/lesion worked up by Dr. aCldwell at [facility] but we do not have records Daily alcohol use, consumes pint/2 wks per clinic records - RUQ U/S pending - Lipid Panel pending - LDH pending - Electrolytes pending - Given fluid bolus in ED, started NS 100 mls/hr. Will need to check fluid status throughout day with heart failure. Not currently requiring oxygen. # Chest Pain Likely secondary to pancreatitis No changes on EKG, trop negative # Pancreatic Mass Supposedly biopsied by Dr. Caldwell at [facility]. It would be worth contacting Dr. Caldwell for results to r/o malignancy. Mass poorly visualized on CT scan a few months ago. - consider re-imaging mass # HFrEF, EF 25-35% - monitor status today - she has not followed up with cardiology. She is currently still wearing a life -vest. # HTN - continue home meds # Anemia - continue ferrous sulfate # Epilepsy - continue home meds # Nicotine Abuse - nicotine patch # Chronic Pancytopenia Likely secondary to co-morbidities # Severe Malnutrition - consult lpc Fluid: NS 100 mls/hr Diet: NPO VTE: SCD's Code: Full Dispo: > 48 hr stay FMR H&P: Upper Level - Plan Date/Time: 08/28/19 0611 IRay MD, have evaluated this patient and agree with findings/plan as outlined by internet consultant resident. Pertinent changes/additions are listed here. Dena Oconnell is 69 year old with a PMH of CHF (05/2019 Echo, EF 20-25%), Epilepsy, Liver Disease, HTN, Hx of pancytopenia who presented to the ED with a one day history of acute onset epigastric pain, without radiation, sharp in nature, with associated subjective fever, chills, nausea, vomiting. Denies any exertional chest pain, dyspnea, palpitations, dysuria. She has a history of tobacco and alcohol abuse and she was drinking yesterday. She is not a great historian, repeatedly falling asleep during history but A&OX4 when she wakes up. In the ED, vitals were 164/94, HR 72, O2 sat 98% RA, T 98.7, 44 kg, RR 16. EKG showed NSR with 1st degree AV block, TSH 0.6, Trop <0.60, BNP 47, Serum drug screen neg, no alcohol, Lipase 711, WBC 1.8, Hg 7.9, MCV 109, Cr 2.21, Gluc 75, Na 137. On exam, abdomen was soft, epigastric TTP, no rigidity, rebound or guarding. RRR no murmurs, CTAB, no LE edema. Patient is being admitted to inpatient tele for acute pancreatitis likely 2/2 alcohol abuse. Pt unable to provide great history. Will check RUQ US, FLP, LDH. Will give gentle IVFs due to hx of HFrEF. Has a history of pancreatic mass that has apparently been worked up and pt is supposed to have follow up with Dr. Caldwell as outpatient, unsure if she has done that. May need to get GI involved. Anticipate hospital stay > 48 hours. Please see internet consultant note above for full H&P , which I have reviewed and agree with. Addendum - Attending - Attending Attestation Date/Time: 08/28/19 5270 I personally evaluated the patient and discussed the management with the team. I agree with the History, Examination, Assessment and Plan documented above with any addition or exceptions noted below. At the time of my eval her pain had resolved and she was asking for food. Recommended thiamine/folate and can advance diet as tolerated. Will contact onc concerning results. Await sono report.
[2019-08-28] MEDS ORDERED: Ondansetron PF 4 MG/2 ML Vial IVP PRN (06:19)
[2019-08-28] MEDS ORDERED: Sodium Chloride 0.9% 1,000 ML IV SCH (06:30)
[2019-08-28 07:14] LABS: Cholesterol 205 mg/dl (< 200 Desired); HDL Cholesterol 105 mg/dL (>60 Neg Risk); LDL Cholesterol, Calculated 63 mg/dL; Magnesium 1.5 mg/dL (1.6-2.6); Phosphorus 3.6 mg/dL (2.3-4.7); Triglycerides 186 mg/dL (Less than 150)
[2019-08-28] MEDS ORDERED: Labetalol HCl 100 MG/20 ML VIAL SLOW IVP PRN (07:38)
[2019-08-28 08:14] VITALS: BMI 14.8
[2019-08-28] MEDS ORDERED: Sodium Chloride 0.9% (PF) 10 ML VIAL FS PRN (08:44)
--- NOTE | 2019-08-28 09:07 | RAD ---
CHEST 1 VIEW: HISTORY: Chest pain. COMPARISON: Radiograph 08/15/2019. FINDINGS: An external defibrillator vest projects over the chest. This limits evaluation of the lung parenchym a. No focal confluent airspace consolidation, pneumothorax, or effusion. Cardiac silhouette and med iastinal contours are within normal limits. No acute osseous abnormality. IMPRESSION: No acute intrathoracic abnormality. Overlying wearable defibrillator. POS: CET
--- NOTE | 2019-08-28 09:53 | ULT ---
ULTRASOUND GALLBLADDER RIGHT UPPER QUADRANT: Date: 08/28/2019 HISTORY: Acute pancreatitis. COMPARISON: CT abdomen and pelvis dated 05/26/2019. FINDINGS: Pancreatic duct measures approximately 3.0 mm. There is a hypodensity of the pancreatic head measurin g up to 1.6 cm in size. Diffuse increased hepatic echotexture. Liver measures 15.3 cm in length. Common bile duct measures 6.0 mm, upper limits of normal. Gallbladder wall thickness is normal. Right kidney measures 9.2 x 4.3 x 5.8 cm, without mass, hydronephrosis, or abnormal calcifications. IMPRESSION: 1. Ill-defined pancreatic mass with mild dilatation of the common bile duct. Dedicated pancreatic pr otocol MRI with and without contrast recommended with MRCP. 2. Diffuse increased hepatic echotexture can be seen with hepatic cellular dysfunction versus steato sis. CODE T. POS: CET
[2019-08-28] MEDS: Nicotine 14 MG PATCH TD SCH (10:55)
[2019-08-28] MEDS: carBAMazepine 100 mg Chewable Tablet PO SCH (10:59)
[2019-08-28] MEDS: levETIRAcetam 500 MG TAB PO SCH ×2 (10:59→20:24)
[2019-08-28] MEDS: Pantoprazole 40 MG VIAL IVP SCH (11:00)
[2019-08-28] MEDS: Sodium Chloride 0.9% 1,000 ML IV SCH ×2 (15:44→20:24)
[2019-08-28] MEDS: Isosorbide Dinitrate 20 MG TAB PO SCH ×2 (15:48→20:24)
[2019-08-28] MEDS ORDERED: Morphine 4 MG/ML VIAL SLOW IVP PRN (17:22)
[2019-08-28] MEDS ORDERED: Acetaminophen 80 MG Suppository PR PRN (17:22)
[2019-08-28] MEDS ORDERED: Morphine 2 MG/ML SYRINGE SLOW IVP PRN (17:22)
[2019-08-28] MEDS ORDERED: Acetaminophen 325 MG Suppository PR PRN (17:22)
[2019-08-28] MEDS: Carvedilol 25 MG TAB PO SCH (17:58)
[2019-08-29 04:44] LABS: #Eosinphils 0.1 thou/uL (0.0-0.7); #Lymphocytes 0.4 thou/uL (1.20-3.40); #Monocytes 0.1 thou/uL (0.11-0.59); #Neutrophils 0.9 thou/uL (1.40-6.50); %Eosinophils 3.9 % (0.0-10.0); %Lymphocytes 27.7 % (21.0-51.0); %Monocytes 7.7 % (0.0-10.0); %Neutrophils 60.7 % (42.0-75.0); Hemoglobin 6.4 g/dL (12.0-16.0); Mean Corpuscular HGB CONC 34.7 g/dL (32.0-36.0); Mean Corpuscular Hemoglobin 37.7 pg (27.0-31.0); Platelet Count 72 thou/uL (130-400); White Blood Cell (WBC) Count 1.5 thou/uL (4.8-10.8)
[2019-08-29 04:54] LABS: ALT (SGPT) Less than 7 U/L (8-55); AST (SGOT) 13 U/L (5-34); Alkaline Phosphatase 95 U/L (40-110); Anion Gap 12 mmol/L (10-20); BUN (Urea Nitrogen) 41 mg/dL (9.8-20.1); Bilirubin, Total 0.4 mg/dL (0.2-1.2); Calc. Creatinine Clearance 20 mL/min (70-130); Calcium 8.3 mg/dL (7.8-10.44); Carbon Dioxide 22 mmol/L (23-31); Chloride 111 mmol/L (98-107); Estimated GFR-MDRD 34; Globulin 2.4 g/dL (2.4-3.5); Glucose 99 mg/dL (80-115); Potassium 4.3 mmol/L (3.5-5.1); Protein, Total 5.4 g/dL (6.0-8.3); Sodium 141 mmol/L (136-145)
[2019-08-29] MEDS ORDERED: Furosemide 20 MG/2 ML VIAL SLOW IVP SCH (08:00)
--- NOTE | 2019-08-29 09:19 | PDOC.FM ---
- Subjective Subjective: resting comfortably, reports abdominal pain has been resolved unless you push on her stomach. She has not eaten much, pt states she has no nausea, she just doesn't feel like eating. - Objective Vital Signs & Weight: Vital Signs (12 hours) Temp Pulse Resp BP Pulse Ox 08/29/19 08:02 98.3 F 80 18 129/79 97 08/29/19 03:41 99.1 F 89 16 121/75 95 08/28/19 23:33 130/82 Weight Weight 41.594 kg I&O: 08/28/19 08/29/19 08/30/19 06:59 06:59 06:59 Intake Total 100 Output Total 250 Balance -150 Result Diagrams: 08/29/19 23:53 08/30/19 07:43 Phys Exam - Physical Examination cachectic HEENT: moist MMs, sclera anicteric Neck: no JVD, supple Respiratory: no wheezing, clear to auscultation bilateral Cardiovascular: RRR, no significant murmur Gastrointestinal: soft mild ttp in epigastric Musculoskeletal: pulses present Neurological: normal sensation, moves all 4 limbs Psychiatric: normal affect, A&O x 3 Skin: no rash, normal turgor Dx/Plan (1) Pancreatitis Code(s): K85.90 - ACUTE PANCREATITIS WITHOUT NECROSIS OR INFECTION, UNSP Status: Acute (2) Pancytopenia Code(s): D61.818 - OTHER PANCYTOPENIA Status: Acute (3) Protein-calorie malnutrition, severe Code(s): E43 - UNSPECIFIED SEVERE PROTEIN-CALORIE MALNUTRITION Status: Chronic (4) Acute on chronic anemia Code(s): D64.9 - ANEMIA, UNSPECIFIED Status: Acute (5) CKD (chronic kidney disease) Code(s): N18.9 - CHRONIC KIDNEY DISEASE, UNSPECIFIED Status: Acute (6) Pancreatic mass Status: Chronic - Plan Plan: Pt is a 69 yo female with PMH significant for CHF w/ lifevest placement, CKD, pancytopenia, pancreatic mass, malnutrition, HTN, and epilepsy who presents for acute abdominal and chest pain: Pancreatitis likely 2/2 pancreatic mass A- Resolving. Pt tolerating PO intake but not eating/drinking much. Lipase 711 on admission likely secondary to mass vs alcohol. Previous hx of pancreatic mass /lesion worked up by Dr. García at [facility] but we do not have records. RUQ U/S shows ill defined pancreatic mass, pancreatic duct 3mm, read recommends MRCP and pancreatic MRI but this may have already been done by Dr. García P- will monitor fluid PO intake -consult heme/onc Pancytopenia A- likely 2/2 possible malignancy vs. severe malnutrition P- pt needs 1u prbc today, will transfuse -monitor with cbc daily -heme/onc consult Chest Pain Likely secondary to pancreatitis No changes on EKG, trop negative HFrEF, EF 25-35% A- pt presented with life-vest, but battery was running out. She has not f/u with cards. She is stable for now. P- 20mg lasix with uPRBC today -will hold IVF until later today or tomorrow after re-eval of fluid status and f /u on PO intake HTN -continue home meds Epilepsy -continue home meds Nicotine Abuse -nicotine patch Severe Malnutrition -consult agribusiness professor Code: Full Addendum - Attending - Attending Attestation Date/Time: 09/01/19 7758 I personally evaluated the patient and discussed the management with the team on day of service. I agree with the History, Examination, Assessment and Plan documented above with any addition or exceptions noted below. She tells me she is having no abd pain, n/v, and has an improved appetite. Her exam is benign. Await heme/onc consult to facilitate dispo.
[2019-08-29] MEDS: Carvedilol 25 MG TAB PO SCH ×2 (09:24→16:20)
[2019-08-29] MEDS: Nicotine 14 MG PATCH TD SCH (09:24)
[2019-08-29] MEDS: carBAMazepine 100 mg Chewable Tablet PO SCH (09:25)
[2019-08-29] MEDS: Folic Acid/Vit B Comp W-C PO SCH (09:26)
[2019-08-29] MEDS: levETIRAcetam 500 MG TAB PO SCH ×2 (09:26→21:24)
[2019-08-29] MEDS: Isosorbide Dinitrate 20 MG TAB PO SCH ×3 (09:26→21:24)
[2019-08-29] MEDS: Pantoprazole 40 MG VIAL IVP SCH (09:27)
[2019-08-29] MEDS: Thiamine 100 MG TAB PO SCH (09:27)
[2019-08-29] MEDS: NIFEdipine XL 30 MG TAB PO SCH (09:28)
[2019-08-29] MEDS ORDERED: Prevnar 13-Val Conj/PF 0.5 ML SYRINGE IM ONE (11:30)
--- NOTE | 2019-08-29 16:17 | CON ---
DATE OF CONSULTATION: REASON FOR CONSULTATION: Pancreatic mass and pancytopenia. HISTORY OF PRESENT ILLNESS: Ms. Oconnell is a 69-year-old female with past medical history of alcohol and tobacco use, liver disease, pancytopenia, heart failure, and pancreatic mass, who presented to the hospital with epigastric pain. She had some lab abnormalities in the ER and was admitted for possible dehydration. She had drunk alcohol the day prior to arrival. The patient has a longstanding history of anemia and leukopenia, felt to be secondary to alcohol use. In December of 2018, she was noted to have a low-density mass at the head of the pancreas. It measured 2.4 x 2.4 cm. She was evaluated by [facility] and referred to Dr. pA Ledbetter in [place] for endoscopic biopsy. The patient never made this appointment, so she was then referred to [facility]. I believe she did have an EUS and shortly after that procedure was admitted here for hypotension. I do not have the results of the EUS as I believe it was ordered by GI. The patient was to follow up in May with Dr. Mane, but did not show for her appointment. On this admission, her WBCs are 1.5; hemoglobin was 6.4 today, down from 7.9, likely due to hemodilution. She has not been transfused and asymptomatic. We were asked to see the patient regarding her pancytopenia and pancreatic mass. PAST MEDICAL HISTORY: 1. Alcohol use. 2. Seizure disorder. 3. Tobacco use. 4. Hypertension. 5. Epilepsy. 6. Heart failure. 7. History of noncompliance. PAST SURGICAL HISTORY: 1. Hip arthroscopy. 2. Hysterectomy. ALLERGIES: NO KNOWN DRUG ALLERGIES. HOME MEDICATIONS: 1. Folic acid. 2. Sertraline. 3. Sodium bicarbonate. 4. Keppra. FAMILY HISTORY: Father had throat cancer. Grandmother had stomach cancer. SOCIAL HISTORY: . One child. Heavy tobacco use. Daily drinker. Occasional marijuana. Lives with her mother. REVIEW OF SYSTEMS: Negative except for her hunger. PHYSICAL EXAMINATION: VITAL SIGNS: Temperature is 97.0, pulse is 75, respiratory rate 22, blood pressure is 118/74. She is 96% on room air. GENERAL: Cachectic female, in no acute distress. HEENT: Normocephalic and atraumatic. Pupils are equal and reactive to light. She has poor dentition. NECK: Supple. CV: Regular rate and rhythm. LUNGS: Clear anteriorly. ABDOMEN: Soft. Bowel sounds are positive. EXTREMITIES: No clubbing or cyanosis. SKIN: No rash. NEUROLOGIC: Nonfocal. PERTINENT LABS AND X-RAYS: Current WBCs are 1.7, hemoglobin 6.4, hematocrit 18.5, platelet count 72,000. Sodium is 141, potassium 4.3, chloride 111, CO2 is 22, BUN is 41, creatinine 1.81, calcium 8.3. Bilirubin 0.4, AST 13, ALT less than 7, alkaline phosphatase is 95, serum total protein is 5.4, albumin 3.0, globulin 2.4. ASSESSMENT: 1. Pancytopenia, likely secondary to chronic alcohol use. 2. Pancreatic mass. DISCUSSION: The patient's pancreatic mass has been biopsied at [facility] in May. I do not have the results of the scan. The patient does not remember the results, so we will obtain medical records for the biopsy. She did not follow up in our clinic as scheduled in May regarding these results. She has chronic leukopenia and anemia, but on this admission has low platelets as well. I will check B12 just to ensure that it is normal. She was instructed to stop her alcohol use. No further recommendations at this time. We will await results of the biopsy from the pancreatic mass. Job ID: [id number]
[2019-08-30 00:02] LABS: Hemoglobin 8.4 g/dL (12.0-16.0)
--- NOTE | 2019-08-30 06:09 | PDOC.FM ---
- Subjective Subjective: Pt reports she has no pain this AM. Has been trying to eat and drink. She is not currently wearing her life vest. Telemetry overnight showed NSR in 60-70s. - Objective MAR Reviewed: Yes Vital Signs & Weight: Vital Signs (12 hours) Temp Pulse Pulse Resp BP BP Pulse Ox 08/30/19 04:00 98.4 F 69 16 164/97 H 98 08/29/19 23:55 98.2 F 68 18 154/90 H 99 08/29/19 21:13 97.6 F 65 18 141/62 H 98 08/29/19 20:58 98 F 64 18 146/84 H 96 08/29/19 19:33 97.5 F L 74 18 128/73 98 Weight Admit Weight 41.594 kg Weight 41.594 kg Most Recent Monitor Data Respiration from ECG 18 I&O: 08/28/19 08/29/19 08/30/19 06:59 06:59 06:59 Intake Total 100 1125 Output Total 250 1000 Balance -150 125 Result Diagrams: 08/29/19 23:53 08/30/19 07:43 EKG Reviewed by me: Yes Phys Exam - Physical Examination Constitutional: NAD (cachectic) hardened, palpable thyroid, nontender Respiratory: no wheezing, clear to auscultation bilateral Cardiovascular: RRR, no significant murmur Gastrointestinal: soft, non-tender, no distention, positive bowel sounds Musculoskeletal: no edema Neurological: moves all 4 limbs Psychiatric: normal affect Skin: no rash (dry skin on hands, peeling) Dx/Plan (1) Pancreatitis Code(s): K85.90 - ACUTE PANCREATITIS WITHOUT NECROSIS OR INFECTION, UNSP Status: Acute (2) CAD (coronary artery disease) Code(s): I25.10 - ATHSCL HEART DISEASE OF [place] CORONARY ARTERY W/O ANG PCTRS Status: Chronic (3) Protein-calorie malnutrition, severe Code(s): E43 - UNSPECIFIED SEVERE PROTEIN-CALORIE MALNUTRITION Status: Chronic (4) Acute on chronic anemia Code(s): D64.9 - ANEMIA, UNSPECIFIED Status: Acute (5) Pancreatic mass Status: Chronic - Plan Plan: Pt is a 69 yo female with PMH significant for CHF w/ lifevest placement, CKD, pancytopenia, pancreatic mass, malnutrition, HTN, and epilepsy who presents for acute abdominal and chest pain: Pancreatitis likely 2/2 pancreatic mass A- Resolving. Pt tolerating PO intake but not eating/drinking much. Lipase 711 on admission likely secondary to mass vs alcohol. Previous hx of pancreatic mass /lesion worked up by Dr. García at [facility] but we do not have records. RUQ U/S shows ill defined pancreatic mass, pancreatic duct 3mm, read recommends MRCP and pancreatic MRI but this may have already been done by Dr. García P- will monitor fluid PO intake -Heme/Onc consulted. appreciate recs. Awaiting records from [facility] for biopsy of mass. - Awaiting AM BMP and magnesium repeat. HORTENCIA on CKD vs worsening CKD - baseline appears to be 1.3-1.4. - Repeat BMP today pending Pancytopenia A- likely 2/2 possible malignancy vs. severe malnutrition. S/p 1 uPRBC P- trend H/H -monitor with cbc daily Chest Pain Likely secondary to pancreatitis No changes on EKG, trop negative HFrEF, EF 25-35% A- pt presented with life-vest, but battery was running out. She has not f/u with cards. She is stable for now. P- 20mg lasix with uPRBC today -monitor fluid status. - continuous telemetry. HTN Epilepsy -continue home meds Nicotine Abuse -nicotine patch Severe Malnutrition -consult school age program associate. Code: Full Addendum - Attending - Attending Attestation Date/Time: 08/30/19 1141 I personally evaluated the patient and discussed the management with Dr. Garcia /Sathish I agree with the History, Examination, Assessment and Plan documented above with any addition or exceptions noted below.Patient tolerating diet denies abdominal pain. Biopsy per Waynedea Haddad and White needs follow up / Patient aware our the importance of outpatient follow up. Stressed the importance of medical compliance with patient and she voices understanding. Explored obstacles to f/u and she related the need for PM appt for ease of transport assistance by her family.
[2019-08-30 08:31] LABS: Anion Gap 16 mmol/L (10-20); BUN (Urea Nitrogen) 34 mg/dL (9.8-20.1); Calc. Creatinine Clearance 22 mL/min (70-130); Carbon Dioxide 20 mmol/L (23-31); Chloride 110 mmol/L (98-107); Estimated GFR-MDRD 38; Glucose 83 mg/dL (80-115); Magnesium 1.3 mg/dL (1.6-2.6); Potassium 3.9 mmol/L (3.5-5.1); Sodium 142 mmol/L (136-145)
[2019-08-30] MEDS: levETIRAcetam 500 MG TAB PO SCH (08:33)
[2019-08-30] MEDS: Thiamine 100 MG TAB PO SCH (08:33)
[2019-08-30] MEDS: carBAMazepine 100 mg Chewable Tablet PO SCH (08:33)
[2019-08-30] MEDS: Isosorbide Dinitrate 20 MG TAB PO SCH (08:33)
[2019-08-30] MEDS: NIFEdipine XL 30 MG TAB PO SCH (08:34)
[2019-08-30] MEDS: Folic Acid/Vit B Comp W-C PO SCH (08:34)
[2019-08-30] MEDS: Carvedilol 25 MG TAB PO SCH (08:34)
[2019-08-30] MEDS: Nicotine 14 MG PATCH TD SCH (08:35)
[2019-08-30] MEDS: Pantoprazole 40 MG VIAL IVP SCH (08:35)
[2019-08-30] MEDS ORDERED: Magnesium 2 GM/50 ML 2 GM in Premix Bag 1 BAG IVPB SCH (11:00)
[2019-08-30 12:18] VITALS: BP 135/84; TEMP 98.2
--- NOTE | 2019-08-30 23:48 | DIS ---
DATE OF ADMISSION: 08/28/2019 DATE OF DISCHARGE: 08/30/2019 ADMITTING ATTENDING: Bogdan Ku MD DISCHARGE ATTENDING: Chucky Urbina MD RESIDENT: Jaquan Bower DO CONSULTS: Kaylie Hernández NP, Oncology. PROCEDURES: Chest x-ray on 08/28 finding no acute intrathoracic abnormality. Abdominal ultrasound on 08/28 finding an ill-defined pancreatic mass with mild dilation of the common bile duct and diffuse increased hepatic echotexture. ADMITTING DIAGNOSES: 1. Acute pancreatitis. 2. Chronic kidney disease. 3. Cardiomyopathy. 4. Pancytopenia. 5. Pancreatic mass. 6. Protein calorie malnutrition. 7. Tobacco use. 8. Alcohol use. DISCHARGE DIAGNOSES: 1. Pancreatitis, resolved. 2. Chronic kidney disease. 3. Cardiomyopathy. 4. Pancytopenia. 5. Pancreatic mass. 6. Protein calorie malnutrition. 7. Tobacco use. 8. Alcohol use. 9. Hypokalemia, resolved. 10. Hypomagnesemia. HOSPITAL SUMMARY: This is a 69-year-old female, who was initially admitted for acute epigastric pain, found to be pancreatitis. She has a past medical history significant for CHF with reduced ejection fraction and has a LifeVest; however, she frequently does not wear it. She also has a history of CKD, pancytopenia, and malnutrition. She has a history of a pancreatic mass with an inconsistent workup history. She apparently was initially diagnosed over a year ago with referral for biopsy in [place]; however, this never took place. She was then sent to [facility] for endoscopic ultrasound-guided biopsy. This apparently did happen; however, the results are unknown. She has seen Oncology in the past for this mass; however, has been lost to follow up since. During the course of hospitalization, she was initially held n.p.o. and pain was treated. Her pancreatitis quickly resolved and on the day of discharge, she was eating and drinking without abdominal pain whatsoever. She was noted to be continually pancytopenic. However, this is stable and consistent with her most recent recorded labs over the last few months. She was seen by Kaylie Hernández from Oncology while admitted and requested her records. Apparently, biopsy results are still pending. However, the patient has been instructed to follow up with Oncology in the outpatient setting for further management of this potential pancreatic mass and pancytopenia. The patient was in good condition at the time of discharge including understood the instructions to follow up with Heme-Onc for further management of these lab abnormalities and potential of cancer. DISCHARGE INSTRUCTIONS: 1. Location: Home. 2. Followup: With PCP within 1 week. Follow up with Heme-Onc, Dr. Torres within 1 week. 3. Diet: Low-salt heart healthy, volume restriction to 2500 mL per day. 4. Activity: Ad alexander. Job ID: [id number]
== END 2019-08-30 16:10 | disposition home or self-care (01) | DRG 438 ==
LOC: ERS 03:31 → 2NO 08:07
PROVIDERS: ADMIT Family Medicine; ATTEND Family Medicine
DX: K85.90 Acute pancreatitis without necrosis or infection, unspecified (principal); E43 Unspecified severe protein-calorie malnutrition; I42.9 Cardiomyopathy, unspecified; D61.818 Other pancytopenia; Z68.1 Body mass index [BMI] 19.9 or less, adult; I50.22 Chronic systolic (congestive) heart failure; I13.10 Hypertensive heart and chronic kidney disease without heart failure, with stage 1 through stage 4 chronic kidney disease, or unspecified chronic kidney disease; N18.9 Chronic kidney disease, unspecified; K86.9 Disease of pancreas, unspecified; F17.200 Nicotine dependence, unspecified, uncomplicated; Z72.89 Other problems related to lifestyle; E87.6 Hypokalemia; E83.42 Hypomagnesemia; G40.909 Epilepsy, unspecified, not intractable, without status epilepticus; Z90.710 Acquired absence of both cervix and uterus; Z96.642 Presence of left artificial hip joint; Z82.49 Family history of ischemic heart disease and other diseases of the circulatory system; D64.9 Anemia, unspecified; I25.10 Atherosclerotic heart disease of native coronary artery without angina pectoris
CPT/HCPCS: 36415; 36416; 36430; 51701; 71045; 76705; 80048; 80053; 80061; 80177; 80306; 80307; 81003; 82607; 82746; 83615; 83690; 83735; 83880; 84100; 84443; 84484; 85025; 86850; 86900; 86901; 90471; 90670; 93005; 96360; A4353; C9113; G0009; J1940; J3475; J3490; P9016

== ENCOUNTER 2019-09-05 10:59 | Inpatient (IN) | payer MEDICARE ==
[2019-09-05] MEDS ORDERED: Dextrose 50% Abboject 50 ML SYRINGE ONE (11:09)
[2019-09-05] MEDS ORDERED: Dextrose 50 % In Water 50 ML SYRINGE IV SCH (12:00)
[2019-09-05 12:40] LABS: #Eosinphils 0.1 thou/uL (0.0-0.7); #Lymphocytes 0.5 thou/uL (1.20-3.40); #Monocytes 0.2 thou/uL (0.11-0.59); #Neutrophils 1.4 thou/uL (1.40-6.50); %Basophils 0.9 % (0.0-1.0); %Eosinophils 2.9 % (0.0-10.0); %Lymphocytes 23.2 % (21.0-51.0); Hemoglobin 9.1 g/dL (12.0-16.0); Mean Corpuscular HGB CONC 32.9 g/dL (32.0-36.0); Mean Corpuscular Hemoglobin 34.6 pg (27.0-31.0); Platelet Count 175 thou/uL (130-400); RBC Distribution Width 18.8 % (11.5-14.5); Red Blood Cell (RBC) Count 2.62 mill/uL (4.20-5.40); White Blood Cell (WBC) Count 2.1 thou/uL (4.8-10.8)
[2019-09-05 13:04] LABS: Helmet Cells SLIGHT = 2-5 cells (100X) (0-1/hpf); MDiff Complete? YES; Macrocytosis SLIGHT = 6-15 cells (100X) (0-5/hpf); Ovalocytes SLIGHT = 2-5 cells (100X) (0-1/hpf); Platelet Morphology Comment Appears Adequate; Polychromasia MODERATE = 3-4 cells (100X) (0-2/hpf); Schistocytes SLIGHT = 2-5 cells (100X) (0-1/hpf); Tear Drops SLIGHT = 2-5 cells (100X) (0-1/hpf)
[2019-09-05 13:07] LABS: ALT (SGPT) Less than 7 U/L (8-55); AST (SGOT) 21 U/L (5-34); Albumin 3.5 g/dL (3.4-4.8); Alkaline Phosphatase 109 U/L (40-110); Anion Gap 21 mmol/L (10-20); BUN (Urea Nitrogen) 45 mg/dL (9.8-20.1); Bilirubin, Total 0.6 mg/dL (0.2-1.2); CK (CPK) 35 U/L (29-168); Calc. Creatinine Clearance 0 mL/min (70-130); Calcium 8.8 mg/dL (7.8-10.44); Carbon Dioxide 19 mmol/L (23-31); Chloride 102 mmol/L (98-107); Estimated GFR-MDRD 29; Glucose 230 mg/dL (80-115); Lipase 53 U/L (8-78); Potassium 4.5 mmol/L (3.5-5.1); Protein, Total 6.5 g/dL (6.0-8.3); Sodium 137 mmol/L (136-145)
[2019-09-05 13:23] LABS: CKMB 2.7 ng/mL (0-6.6)
[2019-09-05] MEDS ORDERED: Lorazepam 2 MG/ML VIAL ONE (13:23)
[2019-09-05] MEDS ORDERED: Ondansetron PF 4 MG/2 ML Vial IVP PRN (13:54)
[2019-09-05] MEDS ORDERED: Ondansetron ODT 4 MG TAB SL PRN (13:54)
[2019-09-05] MEDS ORDERED: Lorazepam 2 MG/ML VIAL SLOW IVP PRN (13:54)
[2019-09-05] MEDS ORDERED: D5 1/2 NS w/20 mEq KCL 1,000 ML IV SCH (13:54)
--- NOTE | 2019-09-05 14:02 | PDOC.FPRHP ---
- History of Present Illness Chief Complaint: Seizure History of Present Illness: 69 yo AAF with h/o HFrEF, HTN, CKDIII, pancreatic mass, epilepsy presented to the ED for altered mental status and hypoglycemia. Pt is tired and not very talkative and unable to answer all questions. Pt's primary care given is her mother, who stated that this morning they had difficulty waking the patient when they were supposed to go to cardiology appt. EMS was called and pt was found to have glucose of 30. While in the emergency department pt had a seizure lasting approximately 5-7 minutes. Witnessed by family, stated she had eyes roll back into head, decorticate posturing and shaking, and drowsiness afterwards. No loss of bladder or bowels, no tongue biting. Family state they don't believe pt took her keppra last night but has otherwise taken all of her medications as far as they know. She continues to drink EtOH, mom is unsure of how much she is currently drinking or when last drink was. Notes decreased appetite yesterday. Family deny pt complaining of any recent cough, illness, fever, chills, or pain. ED Course: BG of 30 via EMS. 5-7min tonic clonic seizure in ED. Pt received keppra 1,000, 1 amp of D50, and a 500ml NS bolus. - Allergies/Adverse Reactions Allergies Allergy/AdvReac Type Severity Reaction Status Date / Time Gadolinium-Containing AdvReac Mild Emesis Verified 04/28/18 22:32 Contrast Medi - Home Medications Medication Instructions Recorded Confirmed Type Sertraline HCl 50 mg PO DAILY 09/17/18 09/05/19 History carBAMazepine [Carbamazepine] 150 mg PO DAILY 05/27/19 09/05/19 History Carvedilol [Coreg] 25 mg PO BID-WM tab 06/04/19 09/05/19 Rx levETIRAcetam [Keppra] 500 mg PO BID tab 06/04/19 09/05/19 Rx Pantoprazole [Protonix] 40 mg PO DAILY #0 06/19/19 09/05/19 Rx Folic Acid [Folvite] 1 mg PO DAILY 08/28/19 09/05/19 History Sodium Bicarbonate 650 mg PO DAILY 08/28/19 09/05/19 History Aspirin [Ecotrin] 81 mg PO DAILY 09/05/19 09/05/19 History Ergocalciferol (Vitamin D2) 2,000 unit PO DAILY 09/05/19 09/05/19 History [Vitamin D2] Thiamine 100 mg PO DAILY 09/05/19 09/05/19 History - History PMHx: HFrEF (echo in 05/2019, EF 20-25%), CAD, CKD, Liver disease, HTN, Epilepsy, Tobacco and alcohol abuse, pancreatic mass, pancytopenia PSHx: Hysterectomy, L Hip Replacement FHx: Father - [place] at 62; Mother - GERD Social: Drinks alcohol daily, 1/2 ppd smoker, denies drugs, lives with mother - Review of Systems ROS unobtainable: due to mental status General: reports: weight/appetite/sleep changes (decreased), fatigue (chronic). denies: fever/chills Eyes: denies: vision changes ENT: denies: nasal congestion, rhinorrhea Respiratory: denies: cough, congestion, shortness of breath Cardiovascular: denies: chest pain, palpitation, edema Gastrointestinal: denies: nausea, vomiting, diarrhea, constipation, abdominal pain Genitourinary: reports: incontinence, polyuria, other. denies: dysuria Skin: denies: rashes Neurological: reports: seizure - Vital signs Pulse: 76, Resp: 18, Temp: 98.1 (Axillary), Pain: 0, O2 sat: 100 on (RA), Wt: 43kg - Physical Exam Constitutional: NAD, other (Thin, chronically ill-appearing, drowsy, opens eyes to sound and light touch but will fall back asleep easily) HEENT: normocephalic and atraumatic, PERRLA, EOMI, oropharynx clear, other ( poor dentition, dry MM, Cataracts) Neck: trachea midline Heart: RRR, normal S1/S2, no murmurs/rubs/gallops, pulses present, no edema Lungs: CTAB, no respiratory distress, good air movement, no rales/rhonchi, no wheezing, no retractions Abdomen: soft, bowel sounds present, other (Mild suprapubic tenderness) Musculoskeletal: normal structure, normal tone, other (4+/5 strength UE/LE BL) Neurological: no focal deficit Skin: no rash/lesions, no jaundice Heme/Lymphatic: no unusual bruising or bleeding Psychiatric: normal mood and affect, other (A/O x2 not to place) FMR H&P: Results - Labs Result Diagrams: 09/06/19 04:44 09/06/19 04:44 Lab results: WBC 2.1 thou/uL (4.8-10.8) L 09/05/19 12:14 Hgb 9.1 g/dL (12.0-16.0) L 09/05/19 12:14 Hct 27.5 % (36.0-47.0) L 09/05/19 12:14 MCV 105.0 fL (78.0-98.0) H 09/05/19 12:14 Plt Count 175 thou/uL (130-400) 09/05/19 12:14 Neutrophils % 64.0 % (42.0-75.0) 09/05/19 12:14 Sodium 137 mmol/L (136-145) 09/05/19 12:14 Potassium 4.5 mmol/L (3.5-5.1) 09/05/19 12:14 Chloride 102 mmol/L (98-107) 09/05/19 12:14 Carbon Dioxide 19 mmol/L (23-31) L 09/05/19 12:14 BUN 45 mg/dL (9.8-20.1) H 09/05/19 12:14 Creatinine 2.04 mg/dL (0.6-1.1) H 09/05/19 12:14 Glucose 230 mg/dL (80-115) H 09/05/19 12:14 Calcium 8.8 mg/dL (7.8-10.44) 09/05/19 12:14 Total Bilirubin 0.6 mg/dL (0.2-1.2) 09/05/19 12:14 AST 21 U/L (5-34) 09/05/19 12:14 ALT Less than 7 U/L (8-55) L 09/05/19 12:14 Alkaline Phosphatase 109 U/L (40-110) 09/05/19 12:14 Creatine Kinase 35 U/L (29-168) 09/05/19 12:14 CK-MB (CK-2) 2.7 ng/mL (0-6.6) 09/05/19 12:14 B-Natriuretic Peptide 165.1 pg/mL (0-100) H 09/05/19 12:14 Serum Total Protein 6.5 g/dL (6.0-8.3) 09/05/19 12:14 Albumin 3.5 g/dL (3.4-4.8) 09/05/19 12:14 Lipase 53 U/L (8-78) 09/05/19 12:14 - EKG Interpretation EK lead EKG shows, first degree AV Block, Rate (beats per minute): 76, Conduction normal, ST segments normal, T waves, nonspecific T wave abnormality, [place] normal, Other findings include:, prolonged QTc. FMR H&P: A/P - Problem List (1) Seizure disorder Current Visit: Yes Status: Chronic Code(s): G40.909 - EPILEPSY, UNSP, NOT INTRACTABLE, WITHOUT STATUS EPILEPTICUS Comment: (2) Acute worsening of stage 3 chronic kidney disease Current Visit: Yes Status: Acute Code(s): N18.3 - CHRONIC KIDNEY DISEASE, STAGE 3 (MODERATE) (3) Cardiomyopathy Current Visit: Yes Status: Chronic Code(s): I42.9 - CARDIOMYOPATHY, UNSPECIFIED (4) Pancytopenia Current Visit: No Status: Chronic Code(s): D61.818 - OTHER PANCYTOPENIA (5) Alcohol abuse Current Visit: Yes Status: Chronic Code(s): F10.10 - ALCOHOL ABUSE, UNCOMPLICATED Comment: (6) CAD (coronary artery disease) Current Visit: No Status: Chronic Code(s): I25.10 - ATHSCL HEART DISEASE OF [place] CORONARY ARTERY W/O ANG PCTRS (7) Hypertension Current Visit: Yes Status: Chronic Code(s): I10 - ESSENTIAL (PRIMARY) HYPERTENSION Qualifiers: Comment: (8) Hypothyroidism Current Visit: No Status: Chronic Code(s): E03.9 - HYPOTHYROIDISM, UNSPECIFIED Qualifiers: (9) Macrocytic anemia Current Visit: No Status: Chronic Code(s): D53.9 - NUTRITIONAL ANEMIA, UNSPECIFIED Comment: (10) Pancreatic mass Current Visit: No Status: Chronic (11) Tobacco abuse Current Visit: No Status: Chronic Code(s): Z72.0 - TOBACCO USE - Plan 69yo AAF with h/o CKDIII, malnutrition, ETOH abuse, chronic anemia, HTN, pancreatic mass, epilepsy presents with hypoglycemia and seizure #Seizure - Known seizure disorder, had 5-7min seizure in ED, tonic clonic - Medication noncompliance vs EtOH - Given keppra loading dose, mom unsure if she has been missing doses of home keppra - Seizure precautions, ativan prn - Cont home keppra dose, monitor - Carbamazepine lv 1.9, low - Keppra lv 3.3, low-normal #Symptomatic hypoglycemia - BG 30 with EMS, BG 69 in ED. BG 200s s/p dextrose. - will monitor with ACHS accuchecks and hypoglycemic protocol - possibly 2/2 poor PO intake vs insulinoma - Will order C-peptide # HORTENCIA on CKDIII - Cr 2.04, baseline of 1.6 - likely prerenal with BUN/Cr 22 - s/p 500cc bolus in ED, h/o HFrEF so will encourage PO intake and monitor closely - Monitor lytes and replace as necessary - Monitor function #Elevated troponin - Likely 2/2 HORTENCIA and seizure, no sx, EKG no acute changes - will trend trops and monitor on tele #Malnutrition and deconditioning - PT/OT/On Site Coordinator - Family desires skilled nursing placement, CM consulted #CHFrEF with life vest - Chronic, stable. Hypovolemic on exam - TTE on 05/2019 with EF of 25-29% - Continue with outpt cardiology. Known to Dr. Ulloa - BNP at baseline #Chronic anemia and Pancytopenia - Hb 9.1, stable. Suspected 2/2 chronic malnutrition and alcoholism. Mixed etiology. - EGD 05/2019 for melena-no source of bleeding - Iron studies WNL at previous admission - Known to Dr. García, will need continued f/u #cHTN - BP elevated - Has had hypotensive episodes in place, will cont home meds and monitor #Tobacco and EtOH abuse - Nicotine patches. No s/s of withdrawal and BAL negative at admission - Medical Detailist and monitor - ADRIANA protocol #CAD - cont home meds #Pancreatic Lesion - 2.4 x 2.4cm on pancreatic head. Ca 19-9 WNL per old records - Onc is Dr. García - Unclear etiology, will benefit from OP f/u - differential includes insulinoma Dvt ppx: Heparin IVF: SL Diet: Regular PCP: Carlos Thapa - DANNY BorgesA - "G" - Son, lives in [place]. Number is [phone] Dispo: Admitted to stroke for seizure 2/2 medication noncompliance vs EtOH and sx hypoglycemia. Pre-renal HORTENCIA. Workup pending. Anticipate hospitalization < 48hours. FMR H&P: Upper Level - Plan Date/Time: 09/05/19 1402 I, Carlos Alberto Hua MD, have evaluated this patient and agree with findings/ plan as outlined by production internship resident. Pertinent changes/additions are listed here. Recurrent Seizures - Medication noncompliance per patient's caregiver - subtherapeutic seizure medication levels - Restart home meds - Seizure precautions - Component of alcohol withdrawal considered as well. Symptomatic hypoglycemia - No history of DM or insulin use - Likely secondary to poor intake - Previous pancreatic lesion, will consider workup for insulinoma - accuchecks HORTENCIA on CKDIII - Cr 2.04, baseline of 1.6 - Secondary to poor intake and overall deteriorating health - s/p bolus in ED, caution IVF going forward Alcohol abuse - Chronic issue - Likely cause of comorbidities - [facility] protocol - Treat symptoms as needed All other chronic conditions reviewed and medications to be restarted as appropriate. CODE STATUS: FULL CODE PCP: DANNY THAPA Disposition: Stable, will admit to observation for continued management. Addendum - Attending - Attending Attestation Date/Time: 09/05/19 [id number] I personally evaluated the patient and discussed the management with Dr. De Oliveira and Melita I agree with the History, Examination, Assessment and Plan documented above with any addition or exceptions noted below. Admitted for hypoglycemic workup. Patient with previous admission for similar event. Patient with malnutrition and does not eat. Noted to have alcohol abuse as well. Has refused to go to fpc facility. Lives with 80 yo mother. Has been non-complaint with seizure medications. Previously worked up for adrenal etiology which was negative. Has a pancreatic mass that was to be worked up outpatient but patient has not completed at this time. Insulinoma labs ordered. In the past radiology could not clarify mass on CT due to artifact and motion, would consider repeat during hospital stay. Otherwise hypoglycemia could be a component of poor social situation and lifestyle. Kajal
[2019-09-05 14:23] LABS: Carbamazepine-Tegretol Less than 1.9 ug/mL (4.0-12.0)
[2019-09-05] MEDS ORDERED: levETIRAcetam In NaCl (Iso-Os) 1,000 MG in Premix Bag 1 BAG IVPB SCH (14:30)
[2019-09-05] MEDS ORDERED: Sodium Chloride 0.9% 500 ML IVPB SCH (14:45)
[2019-09-05] MEDS ORDERED: Dextrose 50% Abboject 50 ML SYRINGE SLOW IVP PRN (16:15)
[2019-09-05] MEDS ORDERED: Dextrose 5% in Water 1,000 ML IV PRN (16:15)
[2019-09-05 16:40] VITALS: BMI 15.2
[2019-09-05 16:48] LABS: Troponin I 0.022 ng/mL (< 0.028)
[2019-09-05] MEDS ORDERED: Diazepam 5 MG TAB PO PRN (16:55)
[2019-09-05] MEDS ORDERED: Diazepam 5 MG TAB PO SCH (17:00)
[2019-09-05] MEDS ORDERED: Heparin 5,000 UNITS/ML VIAL SC SCH (17:00)
[2019-09-05] MEDS ORDERED: Thiamine HCl 200 MG/2 ML VIAL IM SCH (17:00)
[2019-09-05] MEDS: Carvedilol 25 MG TAB PO SCH (17:43)
[2019-09-05 19:43] LABS: Troponin I Less than 0.010 ng/mL (< 0.028)
[2019-09-05] MEDS: Heparin 5,000 UNITS/ML VIAL SC SCH (21:58)
[2019-09-05] MEDS: levETIRAcetam 500 MG TAB PO SCH (21:58)
[2019-09-06 03:47] LABS: Bacteria/HPF 4+ HPF (None Seen); Bilirubin Negative (Negative); Blood, Urine 3+ (Negative); Clarity Turbid (Clear); Glucose, Urine (Dipstick) Normal (Negative); Leukocyte 250 Leu/uL (Negative); Nitrite 2+ (Negative); Protein, Urine (Dipstick) 10 mg/dL (Neg-Trace); RBC/HPF 0-3 HPF (0-3); Squamous Epithelial 0-3 HPF (0-3)
[2019-09-06 03:56] LABS: Urine Culture Reflex Yes Yes
[2019-09-06] MEDS ORDERED: Diazepam 5 MG TAB PO PRN (04:00)
[2019-09-06 05:07] LABS: #Eosinphils 0.1 thou/uL (0.0-0.7); #Lymphocytes 0.5 thou/uL (1.20-3.40); #Monocytes 0.2 thou/uL (0.11-0.59); %Eosinophils 3.4 % (0.0-10.0); %Lymphocytes 26.6 % (21.0-51.0); %Monocytes 9.3 % (0.0-10.0); %Neutrophils 60.7 % (42.0-75.0); Hemoglobin 8.5 g/dL (12.0-16.0); Mean Corpuscular HGB CONC 33.7 g/dL (32.0-36.0); Mean Corpuscular Hemoglobin 35.7 pg (27.0-31.0); Mean Platelet Volume 7.5 fL (7.4-10.4); Platelet Count 142 thou/uL (130-400); RBC Distribution Width 18.7 % (11.5-14.5); Red Blood Cell (RBC) Count 2.39 mill/uL (4.20-5.40); White Blood Cell (WBC) Count 1.7 thou/uL (4.8-10.8)
[2019-09-06 05:28] LABS: Anion Gap 14 mmol/L (10-20); BUN (Urea Nitrogen) 40 mg/dL (9.8-20.1); Calc. Creatinine Clearance 21 mL/min (70-130); Calcium 8.5 mg/dL (7.8-10.44); Carbon Dioxide 24 mmol/L (23-31); Chloride 105 mmol/L (98-107); Estimated GFR-MDRD 35; Glucose 102 mg/dL (80-115); Sodium 139 mmol/L (136-145)
--- NOTE | 2019-09-06 07:10 | PDOC.FM ---
- Subjective Subjective: Doing well overnight. Episode of hypoglycemia once first on the floor, resolved with PO intake. No seizures. No dysuria, still with frequency, urgency. Purewick in place. Endorses chills, no fevers. No SOB/CP, n/v, diarrhea/ constipation. - Objective MAR Reviewed: Yes Vital Signs & Weight: Vital Signs (12 hours) Temp Pulse Resp BP BP BP Pulse Ox 09/06/19 04:00 168/95 H 09/06/19 03:46 97.8 F 69 16 168/95 H 100 09/06/19 00:00 176/90 H 09/05/19 23:42 97 F L 60 16 176/90 H 100 09/05/19 20:00 96.7 F L 74 16 126/71 126/71 100 Weight Admit Weight 42.864 kg Weight 42.864 kg Result Diagrams: 09/06/19 04:44 09/06/19 04:44 EKG Reviewed by me: Yes (Tele: NSR) Phys Exam - Physical Examination Constitutional: NAD (Chronically-ill appearing. Stable. A/O x2 - baseline, fatigued.) HEENT: moist MMs Neck: supple Respiratory: no wheezing, no rales, no rhonchi, clear to auscultation bilateral Cardiovascular: RRR, no rub 2/6 REBECA Gastrointestinal: soft, no distention, positive bowel sounds Mild suprapubic tenderness to palpation Musculoskeletal: no edema, pulses present Neurological: non-focal, moves all 4 limbs Deviation from normal: A/O x2, not to time, appears near baseline. Dx/Plan (1) Seizure disorder Code(s): G40.909 - EPILEPSY, UNSP, NOT INTRACTABLE, WITHOUT STATUS EPILEPTICUS Status: Chronic (2) Acute worsening of stage 3 chronic kidney disease Code(s): N18.3 - CHRONIC KIDNEY DISEASE, STAGE 3 (MODERATE) Status: Acute (3) Cardiomyopathy Code(s): I42.9 - CARDIOMYOPATHY, UNSPECIFIED Status: Chronic (4) Pancytopenia Code(s): D61.818 - OTHER PANCYTOPENIA Status: Chronic (5) Alcohol abuse Code(s): F10.10 - ALCOHOL ABUSE, UNCOMPLICATED Status: Chronic (6) CAD (coronary artery disease) Code(s): I25.10 - ATHSCL HEART DISEASE OF [place] CORONARY ARTERY W/O ANG PCTRS Status: Chronic (7) Hypertension Code(s): I10 - ESSENTIAL (PRIMARY) HYPERTENSION Status: Chronic Qualifiers: (8) Hypothyroidism Code(s): E03.9 - HYPOTHYROIDISM, UNSPECIFIED Status: Chronic Qualifiers: (9) Macrocytic anemia Code(s): D53.9 - NUTRITIONAL ANEMIA, UNSPECIFIED Status: Chronic (10) Pancreatic mass Status: Chronic (11) Tobacco abuse Code(s): Z72.0 - TOBACCO USE Status: Chronic (12) UTI (urinary tract infection) Status: Acute - Plan Plan: 69yo AAF with h/o CKDIII, malnutrition, ETOH abuse, chronic anemia, HTN, pancreatic mass, epilepsy presents with hypoglycemia and seizure #Seizure - Known seizure disorder, had 5-7min seizure in ED, tonic clonic - Medication noncompliance vs EtOH - Given keppra loading dose, mom unsure if she has been missing doses of home keppra - Seizure precautions, ativan prn, no more seizures on floor - Cont home keppra and carbamazepine dose, monitor - Carbamazepine lv 1.9, low. Keppra lv 3.3, low-normal #Symptomatic hypoglycemia - BG 30 with EMS, BG 69 in ED. BG 200s s/p dextrose. - will monitor with ACHS accuchecks and hypoglycemic protocol - possibly 2/2 poor PO intake vs insulinoma - Will order C-peptide - Episode of hypoglycemia to 54 overnight, responded with PO intake. # HORTENCIA on CKDIII - Cr 2.04, baseline of 1.6 - likely prerenal with BUN/Cr 22 - s/p 500cc bolus in ED, h/o HFrEF so will encourage PO intake and monitor closely - Monitor lytes and replace as necessary - Monitor function #UTI - Dirty UA, sxs of frequency, incontinence, and suprapubic tenderness - Rocephin 1g q24 hour - UCx and BCx pending #Elevated troponin, resolved - Likely 2/2 HORTENCIA and seizure, no sx, EKG no acute changes - trops downtrended #Malnutrition and deconditioning - PT/OT/[employer] - Family desires halfway placement, CM consulted #CHFrEF with life vest - Chronic, stable. Hypovolemic on exam - TTE on 05/2019 with EF of 25-29% - Continue with outpt cardiology. Known to Dr. Ulloa - BNP at baseline #Chronic anemia and Pancytopenia - Hb 9.1, stable. Suspected 2/2 chronic malnutrition and alcoholism. Mixed etiology. - EGD 05/2019 for melena-no source of bleeding - Iron studies WNL at previous admission - Known to Dr. García, will need continued f/u #cHTN - BP elevated - Has had hypotensive episodes in place, will cont home meds and monitor. Careful adjustment of BP meds as pt has labile BP and episodes of hypotension. - Start Norvasc 5mg daily. #Tobacco and EtOH abuse - Nicotine patches. No s/s of withdrawal and BAL negative at admission - Crib Pad Maker and monitor - ADRIANA protocol #CAD - cont home meds #Pancreatic Lesion - 2.4 x 2.4cm on pancreatic head. Ca 19-9 WNL per old records - Onc is Dr. García - Unclear etiology, will benefit from OP f/u - differential includes insulinoma Dvt ppx: Heparin IVF: SL Diet: Regular PCP: Carlos Thapa - DANNY Yee - "G" - Son, lives in [place]. Number is [phone] Dispo: Admitted to stroke for seizure 2/2 medication noncompliance vs EtOH and sx hypoglycemia. Pre-renal HORTENCIA. UTI. Workup pending. Placement to custodial if approved. Anticipate hospitalization <48hours. Addendum - Attending - Attending Attestation Date/Time: 09/06/19 7310 I personally evaluated the patient and discussed the management with Dr. Thapa. I agree with the History, Examination, Assessment and Plan documented above with any addition or exceptions noted below. Patient with multiple chronic conditions here with hypoglycemia and witnessed seizure that may have been related to that. She is improved this morning. AED levels subtherapeutic. No evidence of recurrent hypoglycemia. Will monitor today. Renal function improved. Needs jail placement likely but that is proving difficult. Her leukopenia is stable and likely related to her chronic illnesses.
[2019-09-06] MEDS ORDERED: cefTRIAXone\\ROCEPHIN 1 GM in Sodium Chloride 0.9% 100 ML IVPB SCH (07:15)
[2019-09-06] MEDS: Magnesium Oxide 400 MG TAB PO SCH (08:04)
[2019-09-06] MEDS: carBAMazepine 100 mg Chewable Tablet PO SCH (08:04)
[2019-09-06] MEDS: Multivitamin W/ Minerals 1 TAB PO SCH (08:05)
[2019-09-06] MEDS: levETIRAcetam 500 MG TAB PO SCH ×2 (08:05→23:10)
[2019-09-06] MEDS: Sodium Bicarbonate Tab 325 MG TAB PO SCH (08:05)
[2019-09-06] MEDS: Thiamine 100 MG TAB PO SCH (08:05)
[2019-09-06] MEDS: Aspirin 81 mg Enteric Coated Tablet PO SCH (08:05)
[2019-09-06] MEDS: Folic Acid 1 MG TAB PO SCH (08:05)
[2019-09-06] MEDS: Carvedilol 25 MG TAB PO SCH ×2 (08:06→17:11)
[2019-09-06] MEDS: cefTRIAXone\\ROCEPHIN 1 GM in Sodium Chloride 0.9% 100 ML IVPB SCH (08:06)
[2019-09-06] MEDS: Heparin 5,000 UNITS/ML VIAL SC SCH ×3 (08:07→23:10)
[2019-09-06] MEDS: Nicotine 14 MG PATCH TD SCH (08:36)
[2019-09-06] MEDS ORDERED: Thiamine 100 MG TAB PO SCH (09:00)
[2019-09-06] MEDS ORDERED: Folic Acid 1 MG TAB PO SCH (09:00)
[2019-09-06] MEDS ORDERED: Amlodipine 5 MG TAB PO SCH (09:00)
--- NOTE | 2019-09-07 06:46 | PDOC.FM ---
- Subjective Subjective: Doing very well this morning, no acute events overnight. No episodes of hypoglycemia or seizure. Tolerating PO well. Voiding well with resolution of dysuria and about pain. Had 2 episodes of diarrhea overnight but this has since resolved. No fever/chills, Cp/SOB, n/v. Eager for discharge, States she would like to go home. - Objective MAR Reviewed: Yes Vital Signs & Weight: Vital Signs (12 hours) Temp Pulse Resp BP BP Pulse Ox 09/07/19 06:10 98.4 F 80 14 129/79 97 09/07/19 00:00 98.9 F 75 16 142/82 H 142/82 H 93 L 09/06/19 20:00 98.6 F 82 16 117/70 117/70 97 Weight Admit Weight 42.864 kg Weight 42.864 kg I&O: 09/05/19 09/06/19 09/07/19 06:59 06:59 06:59 Intake Total 85 820 Output Total 75 335 Balance 10 485 Result Diagrams: 09/06/19 04:44 09/06/19 04:44 EKG Reviewed by me: Yes (Tele: NSR with 1st degree block) Phys Exam - Physical Examination Constitutional: NAD (resting comfortably, chronicall ill-appearing but at baseline) HEENT: moist MMs Neck: supple Respiratory: no wheezing, no rales, no rhonchi decreased breath sounds throughout, chronic, stable Cardiovascular: RRR, no significant murmur, no rub Gastrointestinal: soft, non-tender, no distention, positive bowel sounds Musculoskeletal: no edema Neurological: non-focal, moves all 4 limbs Psychiatric: normal affect, A&O x 3 Skin: no rash Dx/Plan (1) Seizure disorder Code(s): G40.909 - EPILEPSY, UNSP, NOT INTRACTABLE, WITHOUT STATUS EPILEPTICUS Status: Chronic (2) Acute worsening of stage 3 chronic kidney disease Code(s): N18.3 - CHRONIC KIDNEY DISEASE, STAGE 3 (MODERATE) Status: Acute (3) Cardiomyopathy Code(s): I42.9 - CARDIOMYOPATHY, UNSPECIFIED Status: Chronic (4) Pancytopenia Code(s): D61.818 - OTHER PANCYTOPENIA Status: Chronic (5) Alcohol abuse Code(s): F10.10 - ALCOHOL ABUSE, UNCOMPLICATED Status: Chronic (6) CAD (coronary artery disease) Code(s): I25.10 - ATHSCL HEART DISEASE OF [place] CORONARY ARTERY W/O ANG PCTRS Status: Chronic (7) Hypertension Code(s): I10 - ESSENTIAL (PRIMARY) HYPERTENSION Status: Chronic Qualifiers: (8) Hypothyroidism Code(s): E03.9 - HYPOTHYROIDISM, UNSPECIFIED Status: Chronic Qualifiers: (9) Macrocytic anemia Code(s): D53.9 - NUTRITIONAL ANEMIA, UNSPECIFIED Status: Chronic (10) Pancreatic mass Status: Chronic (11) Tobacco abuse Code(s): Z72.0 - TOBACCO USE Status: Chronic (12) UTI (urinary tract infection) Status: Acute - Plan Plan: 69yo AAF with h/o CKDIII, malnutrition, ETOH abuse, chronic anemia, HTN, pancreatic mass, epilepsy presents with hypoglycemia and seizure #Seizure - Known seizure disorder, had 5-7min seizure in ED, tonic clonic - Suspected Medication noncompliance - Seizure precautions, ativan prn, no more seizures on floor - Cont home keppra and carbamazepine - Carbamazepine lv 1.9, low. Keppra lv 3.3, low-normal at admission #Symptomatic hypoglycemia - BG 30 with EMS, BG 69 in ED. - will monitor with ACHS accuchecks and hypoglycemic protocol - Suspected 2/2 poor PO intake. - Hyperglycemic over past 24 hours, encourage good PO intake and EtOH cessation. # Prerenal HORTENCIA on CKDIII, resolved - Cr 2.04 -> 1.77 - likely prerenal with BUN/Cr 22 - s/p 500cc bolus in ED, h/o HFrEF so will encourage PO intake and monitor closely - Monitor lytes and replace as necessary #UTI - Dirty UA, sxs of frequency, incontinence, and suprapubic tenderness. Sxs resolved with abx. - Rocephin 1g q24 hour x3d - UCx and BCx pending #Acute Diarrhea - 2 episodes overnight, resolution of sxs - C Diff ordered #Elevated troponin, resolved - Likely 2/2 HORTENCIA and seizure, no sx, EKG no acute changes - trops downtrended #Malnutrition and deconditioning - PT/OT/Medical Management Specialist - Family desires jail placement, CM consulted. Can be placed from home if family desires. Pt does not desire jail at this time. #CHFrEF with life vest - Chronic, stable. Hypovolemic on exam - TTE on 05/2019 with EF of 25-29% - Continue with outpt cardiology. Known to Dr. Ulloa - BNP at baseline #Chronic anemia and Pancytopenia - Hb 9.1, stable. Suspected 2/2 chronic malnutrition and alcoholism. Mixed etiology. - EGD 05/2019 for melena-no source of bleeding - Iron studies WNL at previous admission - Known to Dr. García, will need continued f/u #cHTN - Cont home meds, prefer running on high side has pt has labile BP and previous admission for hypotension #Tobacco and EtOH abuse - Nicotine patches. 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 Encourage cessation. - ADRIANA protocol #CAD - cont home meds #Pancreatic Lesion - 2.4 x 2.4cm on pancreatic head. Ca 19-9 WNL per old records - Onc is Dr. García - Unclear etiology, will benefit from OP f/u - differential includes insulinoma, C-peptide pending Dvt ppx: Heparin IVF: SL Diet: Regular PCP: Carlos Thapa - DANNY Yee - "G" - Son, lives in [place]. Number is [phone] Dispo: Admitted to stroke for seizure 2/2 suspected medication noncompliance and sx hypoglycemia. Pre-renal HORTENCIA, resolved. UTI, treating. Pt near baseline. Family desires jail placement, pt desires home discharge. Will discuss. Anticipate discharge today vs tomorrow. Addendum - Attending - Attending Attestation Date/Time: 09/07/19 2412 I personally evaluated the patient and discussed the management with Dr. Thapa. I agree with the History, Examination, Assessment and Plan documented above with any addition or exceptions noted below. Patient near back to baseline. No episodes of hypoglycemia or recurrent sz activity. She desires home discharge and will discuss with family the possibility of roasterman placement versus home discharge at this time. Wean O2 as tolerated.
[2019-09-07] MEDS: Nicotine 14 MG PATCH TD SCH (08:49)
[2019-09-07] MEDS: Aspirin 81 mg Enteric Coated Tablet PO SCH (08:53)
[2019-09-07] MEDS: Carvedilol 25 MG TAB PO SCH ×2 (08:53→17:05)
[2019-09-07] MEDS: carBAMazepine 100 mg Chewable Tablet PO SCH (08:53)
[2019-09-07] MEDS: levETIRAcetam 500 MG TAB PO SCH ×2 (08:54→20:47)
[2019-09-07] MEDS: Multivitamin W/ Minerals 1 TAB PO SCH (08:54)
[2019-09-07] MEDS: Thiamine 100 MG TAB PO SCH (08:54)
[2019-09-07] MEDS: Folic Acid 1 MG TAB PO SCH (08:54)
[2019-09-07] MEDS: Sodium Bicarbonate Tab 325 MG TAB PO SCH (08:54)
[2019-09-07] MEDS: Magnesium Oxide 400 MG TAB PO SCH (08:54)
[2019-09-07] MEDS: cefTRIAXone\\ROCEPHIN 1 GM in Sodium Chloride 0.9% 100 ML IVPB SCH (08:55)
[2019-09-07] MEDS: Heparin 5,000 UNITS/ML VIAL SC SCH ×3 (09:02→20:48)
[2019-09-07] MEDS: Vancomycin HCl 25 MG/ML Oral PO SCH ×3 (11:53→23:20)
[2019-09-07] MEDS: Lorazepam 2 MG/ML VIAL SLOW IVP PRN (20:48)
--- NOTE | 2019-09-07 23:08 | PDOC.EVN ---
Event Note - Event Note Event Note: Called pt had fall coming back with food. Pt reported back pain initially to nursing but when I went in and evaluated pt reported it had almost resolved. She did report also having pain in her right elbow with movement. No swelling or bruising noted. Pt was tender in posterior aspect to palpation. Pt is very thin. At this time ordered right arm x-ray to evaluate. Pt denied falling on neck or hitting head. C-spine nontender to palpation. Nursing reported pt getting antsy and trying to leave to have cigarette. Increased Nicotine patch to 21 mg. It appears pt was due for replacement patch today. Nursing had also given ativan to help calm down.
[2019-09-07] MEDS ORDERED: Nicotine 21 MG PATCH TD SCH (23:30)
[2019-09-08] MEDS ORDERED: Melatonin 3 MG TAB PO PRN (01:14)
[2019-09-08] MEDS: Lorazepam 2 MG/ML VIAL SLOW IVP PRN (01:18)
[2019-09-08] MEDS: Acetaminophen 325 MG TAB PO PRN ×3 (01:18→21:39)
--- NOTE | 2019-09-08 06:51 | PDOC.FM ---
- Subjective Subjective: Overnight had a fall, tried to get up out of bed and was found on floor, unwitnessed. See event note. Was agitated and required prn ativan. Mild delirium. This morning is drowsy but arousalable. States she is going okay this morning, no acute pains, no fever/chills, Cp/sob. Still having diarrhea but cannot quantify. Spoke with son, MPOA, and family desires nursing/alf placement. - Objective MAR Reviewed: Yes Vital Signs & Weight: Vital Signs (12 hours) Temp Pulse Resp BP Pulse Ox 09/08/19 04:00 97.3 F L 71 16 193/108 H 100 09/08/19 00:00 98.7 F 72 16 168/87 H 100 09/07/19 19:22 97.7 F 73 16 149/88 H 100 Weight Admit Weight 42.864 kg Weight 42.864 kg I&O: 09/06/19 09/07/19 09/08/19 06:59 06:59 06:59 Intake Total 85 820 600 Output Total 75 335 Balance 10 485 600 Result Diagrams: 09/06/19 04:44 09/06/19 04:44 Phys Exam - Physical Examination Constitutional: NAD (chronically-ill appearing. Drowsy but arrousable to touch and loud sound.) dry MMM Respiratory: no wheezing, no rales, no rhonchi, clear to auscultation bilateral Cardiovascular: RRR, no rub 2/6 REBECA Gastrointestinal: soft, non-tender, no distention, positive bowel sounds Musculoskeletal: no edema, pulses present Neurological: non-focal Deviation from normal: A/O x2, drowsy 2/2 medication and long night. Arousable. Dx/Plan (1) Seizure disorder Code(s): G40.909 - EPILEPSY, UNSP, NOT INTRACTABLE, WITHOUT STATUS EPILEPTICUS Status: Chronic (2) Acute worsening of stage 3 chronic kidney disease Code(s): N18.3 - CHRONIC KIDNEY DISEASE, STAGE 3 (MODERATE) Status: Acute (3) Cardiomyopathy Code(s): I42.9 - CARDIOMYOPATHY, UNSPECIFIED Status: Chronic (4) Pancytopenia Code(s): D61.818 - OTHER PANCYTOPENIA Status: Chronic (5) Alcohol abuse Code(s): F10.10 - ALCOHOL ABUSE, UNCOMPLICATED Status: Chronic (6) CAD (coronary artery disease) Code(s): I25.10 - ATHSCL HEART DISEASE OF [place] CORONARY ARTERY W/O ANG PCTRS Status: Chronic (7) Hypertension Code(s): I10 - ESSENTIAL (PRIMARY) HYPERTENSION Status: Chronic Qualifiers: (8) Hypothyroidism Code(s): E03.9 - HYPOTHYROIDISM, UNSPECIFIED Status: Chronic Qualifiers: (9) Macrocytic anemia Code(s): D53.9 - NUTRITIONAL ANEMIA, UNSPECIFIED Status: Chronic (10) Pancreatic mass Status: Chronic (11) Tobacco abuse Code(s): Z72.0 - TOBACCO USE Status: Chronic (12) UTI (urinary tract infection) Status: Acute - Plan Plan: 69yo AAF with h/o CKDIII, malnutrition, ETOH abuse, chronic anemia, HTN, pancreatic mass, epilepsy presents with hypoglycemia and seizure #Seizure - Known seizure disorder, had 5-7min seizure in ED, tonic clonic - Suspected Medication noncompliance - Seizure precautions, ativan prn, no more seizures on floor - Cont home keppra and carbamazepine. Carbamazepine lv 1.9, low. Keppra lv 3.3, low-normal at admission #Fall in hospital - 2/2 mild delirium, agitation. - Arm Xr pending - No complaints this AM, will monitor closely #UTI - Dirty UA, sxs of frequency, incontinence, and suprapubic tenderness. Sxs resolved with abx. - Rocephin 1g q24 hour x3d, final dose today. 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 Family states not safe for home. Desires nursing/alf placement. #Symptomatic hypoglycemia, resolved - BG 30 with EMS, BG 69 in ED. - will monitor with ACHS accuchecks and hypoglycemic protocol - Suspected 2/2 poor PO intake. - Hyperglycemic over past 24 hours, encourage good PO intake and EtOH cessation. # Prerenal HORTENCIA on CKDIII, resolved - Cr 2.04 -> 1.77 - likely prerenal with BUN/Cr 22 - s/p 500cc bolus in ED, h/o HFrEF so will encourage PO intake and monitor closely - Monitor lytes and replace as necessary #Elevated troponin, resolved - Likely 2/2 HORTENCIA and seizure, no sx, EKG no acute changes - trops downtrended #CHFrEF with life vest - Chronic, stable. Hypovolemic on exam - TTE on 05/2019 with EF of 25-29% - Continue with outpt cardiology. Known to Dr. Ulloa - BNP at baseline #Chronic anemia and Pancytopenia - Hb 9.1, stable. Suspected 2/2 chronic malnutrition and alcoholism. Mixed etiology. - EGD 05/2019 for melena-no source of bleeding - Iron studies WNL at previous admission - Known to Dr. García, will need continued f/u #cHTN - Cont home meds, prefer running on high side has pt has labile BP and previous admission for hypotension - Will consider addition of medications prn. #Tobacco and EtOH abuse - Nicotine patches. No s/s of withdrawal and BAL negative at admission - Hand Upper And Bottom Lacer and monitor. Encourage cessation. - ADRIANA protocol #CAD - cont home meds #Pancreatic Lesion - 2.4 x 2.4cm on pancreatic head. Ca 19-9 WNL per old records - Onc is Dr. García - Unclear etiology, will benefit from OP f/u - differential includes insulinoma, C-peptide pending Dvt ppx: Heparin IVF: SL Diet: Regular PCP: Carlos Thapa - DANNY KaterinaHaresh - "G" - Son, lives in [place]. Number is [phone] Dispo: Admitted to stroke for seizure 2/2 suspected medication noncompliance and sx hypoglycemia. Pre-renal HORTENCIA, resolved. UTI, treating. C diff colitis, treating. Pt near baseline. Family desires custodial placement. Will discuss , apprec CM assistance. Anticipate discharge with placement. Addendum - Attending - Attending Attestation Date/Time: 09/08/19 6276 I personally evaluated the patient and discussed the management with Dr. Thapa. I agree with the History, Examination, Assessment and Plan documented above with any addition or exceptions noted below. Patient overall stable. She continues treatment for Cdiff, and was originally admitted for seizure activity and hypoglycemia in the setting of med noncompliance. We are working on possible placement as she is unable to care for herself. Will discuss with family.
[2019-09-08] MEDS: Vancomycin HCl 25 MG/ML Oral PO SCH ×3 (06:54→18:23)
--- NOTE | 2019-09-08 08:24 | RAD ---
2 VIEWS RIGHT FOREARM: Date: 09/08/2019 COMPARISON: None. HISTORY: Elbow pain following a fall. FINDINGS: There are scattered degenerative changes involving the wrist. There is no displaced fracture or evide nce of dislocation. The elbow joint is not well assessed on this examination. IMPRESSION: No displaced fracture or dislocation. If symptoms persist, dedicated imaging of the elbow is advised given the provided history of right elbow pain following a fall. POS: [facility]
[2019-09-08] MEDS: cefTRIAXone\\ROCEPHIN 1 GM in Sodium Chloride 0.9% 100 ML IVPB SCH (08:38)
[2019-09-08] MEDS: Aspirin 81 mg Enteric Coated Tablet PO SCH (09:34)
[2019-09-08] MEDS: Carvedilol 25 MG TAB PO SCH ×2 (09:34→18:22)
[2019-09-08] MEDS: carBAMazepine 100 mg Chewable Tablet PO SCH (09:34)
[2019-09-08] MEDS: Thiamine 100 MG TAB PO SCH (09:35)
[2019-09-08] MEDS: Folic Acid 1 MG TAB PO SCH (09:35)
[2019-09-08] MEDS: Magnesium Oxide 400 MG TAB PO SCH (09:35)
[2019-09-08] MEDS: Sodium Bicarbonate Tab 325 MG TAB PO SCH (09:35)
[2019-09-08] MEDS: levETIRAcetam 500 MG TAB PO SCH ×2 (09:35→21:39)
[2019-09-08] MEDS: Multivitamin W/ Minerals 1 TAB PO SCH (09:35)
[2019-09-08] MEDS: Heparin 5,000 UNITS/ML VIAL SC SCH ×3 (09:36→21:39)
[2019-09-08] MEDS ORDERED: Lactated Ringer's 500 ML IV SCH (10:00)
[2019-09-08] MEDS ORDERED: hydrALAZINE 25 MG TAB PO SCH (10:15)
[2019-09-08] MEDS: hydrALAZINE 25 MG TAB PO SCH ×2 (14:50→21:40)
[2019-09-09] MEDS: Vancomycin HCl 25 MG/ML Oral PO SCH ×4 (00:15→17:45)
[2019-09-09 04:51] LABS: Anion Gap 12 mmol/L (10-20); BUN (Urea Nitrogen) 28 mg/dL (9.8-20.1); Calc. Creatinine Clearance 24 mL/min (70-130); Calcium 8.6 mg/dL (7.8-10.44); Carbon Dioxide 23 mmol/L (23-31); Chloride 110 mmol/L (98-107); Estimated GFR-MDRD 42; Glucose 80 mg/dL (80-115); Potassium 4.7 mmol/L (3.5-5.1); Sodium 140 mmol/L (136-145)
[2019-09-09 05:24] LABS: #Eosinphils 0.1 thou/uL (0.0-0.7); #Lymphocytes 0.5 thou/uL (1.20-3.40); #Monocytes 0.2 thou/uL (0.11-0.59); #Neutrophils 1.5 thou/uL (1.40-6.50); %Basophils 0.2 % (0.0-1.0); %Lymphocytes 23.3 % (21.0-51.0); %Monocytes 7.4 % (0.0-10.0); Hemoglobin 7.4 g/dL (12.0-16.0); Mean Corpuscular Hemoglobin 35.6 pg (27.0-31.0); Mean Platelet Volume 7.6 fL (7.4-10.4); Platelet Count 88 thou/uL (130-400); Platelet Morphology Comment Appears Decreased; RBC Distribution Width 18.8 % (11.5-14.5); Red Blood Cell (RBC) Count 2.08 mill/uL (4.20-5.40); White Blood Cell (WBC) Count 2.3 thou/uL (4.8-10.8)
--- NOTE | 2019-09-09 05:56 | PDOC.FM ---
Addendum entered and electronically signed by Leon Thapa MD 09/09/19 09:11 : Held Heparin for DVT ppx 2/2 PLT < 100k. Known thombocytopenia with pancytopenia. Will cont to monitor. Original Note: - Subjective Subjective: Doing well this morning, no acute events overnight. Spoke regarding placement to longterm and pt is open and willing to go. Denies any fever/chills, n/ v. Decreased overall PO intake but tolerating well. No more recurrent diarrhea. Urinary sxs resolved. - Objective MAR Reviewed: Yes Vital Signs & Weight: Vital Signs (12 hours) Temp Pulse Resp BP BP BP Pulse Ox 09/09/19 04:00 98.1 F 79 16 166/85 H 166/85 H 100 09/09/19 00:00 98.8 F 89 16 150/84 H 150/84 H 100 09/08/19 21:40 82 148/81 H 09/08/19 20:47 148/81 H 09/08/19 20:00 98.1 F 84 16 143/73 H 98 Weight Admit Weight 42.864 kg Weight 42.864 kg I&O: 09/07/19 09/08/19 09/09/19 06:59 06:59 06:59 Intake Total 820 822 800 Output Total 335 Balance 485 822 800 Result Diagrams: 09/09/19 04:13 09/09/19 04:13 Phys Exam - Physical Examination Constitutional: NAD (chronically-ill appearing, resting comfortably) HEENT: moist MMs poor dentition Neck: no nodes Respiratory: no wheezing, no rales, no rhonchi, clear to auscultation bilateral decreased aeration throughout Cardiovascular: RRR, no significant murmur, no rub Gastrointestinal: soft, non-tender, no distention, positive bowel sounds Musculoskeletal: no edema, pulses present Neurological: non-focal, moves all 4 limbs Psychiatric: normal affect Deviation from normal: A/O x2, at baseline Dx/Plan (1) Seizure disorder Code(s): G40.909 - EPILEPSY, UNSP, NOT INTRACTABLE, WITHOUT STATUS EPILEPTICUS Status: Chronic (2) Acute worsening of stage 3 chronic kidney disease Code(s): N18.3 - CHRONIC KIDNEY DISEASE, STAGE 3 (MODERATE) Status: Acute (3) Cardiomyopathy Code(s): I42.9 - CARDIOMYOPATHY, UNSPECIFIED Status: Chronic (4) Pancytopenia Code(s): D61.818 - OTHER PANCYTOPENIA Status: Chronic (5) Alcohol abuse Code(s): F10.10 - ALCOHOL ABUSE, UNCOMPLICATED Status: Chronic (6) CAD (coronary artery disease) Code(s): I25.10 - ATHSCL HEART DISEASE OF [place] CORONARY ARTERY W/O ANG PCTRS Status: Chronic (7) Hypertension Code(s): I10 - ESSENTIAL (PRIMARY) HYPERTENSION Status: Chronic Qualifiers: (8) Hypothyroidism Code(s): E03.9 - HYPOTHYROIDISM, UNSPECIFIED Status: Chronic Qualifiers: (9) Macrocytic anemia Code(s): D53.9 - NUTRITIONAL ANEMIA, UNSPECIFIED Status: Chronic (10) Pancreatic mass Status: Chronic (11) Tobacco abuse Code(s): Z72.0 - TOBACCO USE Status: Chronic (12) UTI (urinary tract infection) Status: Acute - Plan Plan: 69yo AAF with h/o CKDIII, malnutrition, ETOH abuse, chronic anemia, HTN, pancreatic mass, epilepsy presents with hypoglycemia and seizure #Seizure - Known seizure disorder, had 5-7min seizure in ED, tonic clonic - Suspected Medication noncompliance - Seizure precautions, ativan prn, no more seizures on floor - Cont home keppra and carbamazepine. Carbamazepine lv 1.9, low. Keppra lv 3.3, low-normal at admission #Fall in hospital - 2/2 mild delirium/agitation. Has been moved to room closer to nurses station. Fall precautions. - R forearm xray no fracture, states soreness as improved. #UTI, treated - Dirty UA, sxs of frequency, incontinence, and suprapubic tenderness. Sxs resolved with abx. - Rocephin 1g q24 hour x3d. UCx E. Coli. BCx 1/2 contamination and other NGTD #C diff with moderate dehydration - multiple episodes of diarrhea with dry MM. S/P LR bolus. Sxs now resolved. - C Diff toxin and antigen positive - Enteric precautions. Oral vanc x10d #Chronic Malnutrition and deconditioning - PT/OT/Fruit Vendor - Family desires correction placement, CM consulted. Family states not safe for home. #Symptomatic hypoglycemia, resolved - BG 30 with EMS, BG 69 in ED. C-peptide WNL. - ACHS accuchecks and hypoglycemic protocol - Suspected 2/2 poor PO intake, EtOH. Encourage EtOH cessation and encourage PO intake. # Prerenal HORTENCIA on CKDIII, resolved - Cr 2.04 -> 1.5 - likely prerenal with BUN/Cr 22 - Encourage PO intake, gently IVF hydration. Appears euvolemic on exam this morning. - Monitor lytes and replace as necessary #Elevated troponin, resolved - Likely 2/2 HORTENCIA and seizure, no sx, EKG no acute changes. Trops downtrended #CHFrEF with life vest - Chronic, stable. Hypovolemic on exam. BNP at baseline. - TTE on 05/2019 with EF of 25-29% - Continue with outpt cardiology. Known to Dr. Ulloa #Chronic anemia and Pancytopenia - Hb 9.1 -> 7.4, likely hemodilution post fluid resuscitation. No s/s of acute blood loss. Suspected 2/2 chronic malnutrition and alcoholism. Mixed etiology. - EGD 05/2019 for melena-no source of bleeding - Iron studies WNL at previous admission - Known to Dr. García, will need continued f/u as OP. #cHTN - Cont home meds, prefer running on high side has pt has labile BP and previous admission for hypotension - Addition of hydralazine yesterday, will cont to monitor. #Tobacco and EtOH abuse - Nicotine patches. No s/s of withdrawal and BAL negative at admission - Consulting Software Engineer and monitor. Encourage cessation. - ADRIANA protocol #CAD - cont home meds #Pancreatic Lesion - 2.4 x 2.4cm on pancreatic head. Ca 19-9 WNL per old records - Onc is Dr. García - Unclear etiology, will benefit from OP f/u Dvt ppx: Heparin IVF: SL Diet: Regular PCP: Carlos Yee - "G" - Son, lives in [place]. Number is [phone] Dispo: Admitted to stroke for seizure 2/2 suspected medication noncompliance and sx hypoglycemia. Pre-renal HORTENCIA, resolved. UTI, treated. C diff colitis, treating. Pt near baseline. Family desires correction placement. Will discuss , apprec CM assistance. Anticipate discharge with placement. Addendum - Attending - Attending Attestation Date/Time: 09/09/19 1053 I personally evaluated the patient and discussed the management with Dr. Thapa. I agree with the History, Examination, Assessment and Plan documented above with any addition or exceptions noted below. Patient overall stable. No seizure activity now that back on home meds. Blood sugars stable. She is amenable to placement and we will work to get her to SNF. Being treated with PO Vanc for Cdiff. Afebrile and well appearing.
[2019-09-09] MEDS: levETIRAcetam 500 MG TAB PO SCH ×2 (10:12→21:18)
[2019-09-09] MEDS: Multivitamin W/ Minerals 1 TAB PO SCH (10:12)
[2019-09-09] MEDS: Sodium Bicarbonate Tab 325 MG TAB PO SCH (10:14)
[2019-09-09] MEDS: Magnesium Oxide 400 MG TAB PO SCH (10:15)
[2019-09-09] MEDS: carBAMazepine 100 mg Chewable Tablet PO SCH (10:15)
[2019-09-09] MEDS: Carvedilol 25 MG TAB PO SCH ×2 (10:16→17:45)
[2019-09-09] MEDS: Aspirin 81 mg Enteric Coated Tablet PO SCH (10:16)
[2019-09-09] MEDS: Thiamine 100 MG TAB PO SCH (10:16)
[2019-09-09] MEDS: Folic Acid 1 MG TAB PO SCH (10:16)
[2019-09-09] MEDS: hydrALAZINE 25 MG TAB PO SCH ×3 (10:19→21:18)
[2019-09-09] MEDS: Acetaminophen 325 MG TAB PO PRN (21:24)
[2019-09-10] MEDS: Vancomycin HCl 25 MG/ML Oral PO SCH ×5 (00:46→22:31)
[2019-09-10 05:09] LABS: #Eosinphils 0.1 thou/uL (0.0-0.7); #Lymphocytes 0.5 thou/uL (1.20-3.40); #Monocytes 0.2 thou/uL (0.11-0.59); #Neutrophils 1.5 thou/uL (1.40-6.50); %Eosinophils 5.4 % (0.0-10.0); %Lymphocytes 22.1 % (21.0-51.0); %Monocytes 8.7 % (0.0-10.0); %Neutrophils 63.8 % (42.0-75.0); Hemoglobin 6.5 g/dL (12.0-16.0); Mean Corpuscular HGB CONC 32.6 g/dL (32.0-36.0); Mean Corpuscular Hemoglobin 34.9 pg (27.0-31.0); Platelet Count 79 thou/uL (130-400); RBC Distribution Width 18.6 % (11.5-14.5); Red Blood Cell (RBC) Count 1.86 mill/uL (4.20-5.40); White Blood Cell (WBC) Count 2.4 thou/uL (4.8-10.8)
[2019-09-10 05:20] LABS: ALT (SGPT) Less than 7 U/L (8-55); AST (SGOT) 11 U/L (5-34); Albumin 2.7 g/dL (3.4-4.8); Alkaline Phosphatase 86 U/L (40-110); Anion Gap 13 mmol/L (10-20); BUN (Urea Nitrogen) 32 mg/dL (9.8-20.1); Bilirubin, Total 0.2 mg/dL (0.2-1.2); Calc. Creatinine Clearance 21 mL/min (70-130); Calcium 8.6 mg/dL (7.8-10.44); Carbon Dioxide 24 mmol/L (23-31); Chloride 109 mmol/L (98-107); Estimated GFR-MDRD 35; Globulin 2.7 g/dL (2.4-3.5); Glucose 78 mg/dL (80-115); Potassium 4.6 mmol/L (3.5-5.1); Protein, Total 5.4 g/dL (6.0-8.3); Sodium 141 mmol/L (136-145)
--- NOTE | 2019-09-10 05:46 | PDOC.FM ---
- Subjective Subjective: Doing well this morning, no concerns or complaints. Days and nights are switched as patient spends most of night awake and has been sleeping during the day most of the time. Encourage good sleep hygiene and trying to get days and nights corrected. No acute events overnight, no nursing concerns. No fever/ chills, n/v, CP/SOB, diarrhea resolved. No dark tarry stools or blood in the stools, no other acute blood loss. Eager for placement to SNF. - Objective MAR Reviewed: Yes Vital Signs & Weight: Vital Signs (12 hours) Temp Pulse Resp BP BP Pulse Ox 09/10/19 03:58 98.4 F 85 16 144/80 H 100 09/10/19 00:00 126/76 09/09/19 23:53 99 F 87 16 126/76 99 09/09/19 21:18 88 127/72 09/09/19 20:47 150/67 H 09/09/19 20:00 98 F 91 16 150/67 H 98 Weight Admit Weight 42.864 kg Weight 42.864 kg I&O: 09/08/19 09/09/19 09/10/19 06:59 06:59 06:59 Intake Total 822 800 657 Balance 822 800 657 Result Diagrams: 09/10/19 04:48 09/10/19 04:48 Phys Exam - Physical Examination Constitutional: NAD (chronicall-ill appearing, in good spirits, A/O x2 and more alert this AM.) HEENT: moist MMs Neck: supple Respiratory: no wheezing, no rales, no rhonchi, clear to auscultation bilateral Cardiovascular: RRR, no significant murmur, no rub Gastrointestinal: soft, non-tender, no distention, positive bowel sounds Musculoskeletal: no edema, pulses present Neurological: non-focal, moves all 4 limbs Psychiatric: normal affect Deviation from normal: A/O x2, not to time, but overall more alert and conversational Dx/Plan (1) Seizure disorder Code(s): G40.909 - EPILEPSY, UNSP, NOT INTRACTABLE, WITHOUT STATUS EPILEPTICUS Status: Chronic (2) Acute worsening of stage 3 chronic kidney disease Code(s): N18.3 - CHRONIC KIDNEY DISEASE, STAGE 3 (MODERATE) Status: Acute (3) Cardiomyopathy Code(s): I42.9 - CARDIOMYOPATHY, UNSPECIFIED Status: Chronic (4) Pancytopenia Code(s): D61.818 - OTHER PANCYTOPENIA Status: Chronic (5) Alcohol abuse Code(s): F10.10 - ALCOHOL ABUSE, UNCOMPLICATED Status: Chronic (6) CAD (coronary artery disease) Code(s): I25.10 - ATHSCL HEART DISEASE OF [place] CORONARY ARTERY W/O ANG PCTRS Status: Chronic (7) Hypertension Code(s): I10 - ESSENTIAL (PRIMARY) HYPERTENSION Status: Chronic Qualifiers: (8) Hypothyroidism Code(s): E03.9 - HYPOTHYROIDISM, UNSPECIFIED Status: Chronic Qualifiers: (9) Macrocytic anemia Code(s): D53.9 - NUTRITIONAL ANEMIA, UNSPECIFIED Status: Chronic (10) Pancreatic mass Status: Chronic (11) Tobacco abuse Code(s): Z72.0 - TOBACCO USE Status: Chronic (12) UTI (urinary tract infection) Status: Acute - Plan Plan: 69yo AAF with h/o CKDIII, malnutrition, ETOH abuse, chronic anemia, HTN, pancreatic mass, epilepsy presents with hypoglycemia and seizure #Seizure - Known seizure disorder, had 5-7min seizure in ED, tonic clonic - Suspected Medication noncompliance - Seizure precautions, ativan prn, no more seizures on floor - Cont home keppra and carbamazepine. Carbamazepine lv 1.9, low. Keppra lv 3.3, low-normal at admission #Acute on Chronic anemia and Pancytopenia - Hb 9.1 -> 7.4 -> 6.5, No s/s of acute blood loss. Suspected 2/2 chronic malnutrition and alcoholism. Mixed etiology. - EGD 05/2019 for melena-no source of bleeding. Will repeat FOBT. - Iron studies WNL at previous admission - Known to Dr. García, will need continued f/u as OP. - Consider transfusion of 1u pRBC this AM vs continued monitoring - Holding DVT ppx 2/2 thrombocytopenia, will cont to monitor, encourage ambulating with PT, SCDs in place #Fall in hospital - 2/2 mild delirium/agitation. Has been moved to room closer to nurses station. Fall precautions. - R forearm xray no fracture, soreness improved #UTI, treated - Dirty UA, sxs of frequency, incontinence, and suprapubic tenderness. Sxs resolved with abx. - Rocephin 1g q24 hour x3d. UCx E. Coli. BCx 1/2 contamination and other NGTD #C diff with moderate dehydration - multiple episodes of diarrhea with dry MM. S/P LR bolus. Sxs now resolved. - C Diff toxin and antigen positive - Enteric precautions. 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 Family states not safe for home. - Albumin low at 2.7, prealb pending #Symptomatic hypoglycemia, resolved - BG 30 with EMS, BG 69 in ED. C-peptide WNL. - ACHS accuchecks and hypoglycemic protocol - Suspected 2/2 poor PO intake, EtOH. Encourage EtOH cessation and encourage PO intake. # Prerenal HORTENCIA on CKDIII, resolved - Cr 2.04 -> 1.5 -> 1.75 - Encourage PO intake, gently IVF hydration as needed. Appears euvolemic on exam this morning. - Monitor lytes and replace as necessary #Elevated troponin, resolved - Likely 2/2 HORTENCIA and seizure, no sx, EKG no acute changes. Trops downtrended #CHFrEF with life vest - Chronic, stable. Hypovolemic on exam. BNP at baseline. - TTE on 05/2019 with EF of 25-29% - Continue with outpt cardiology. Known to Dr. Ulloa #cHTN - Cont home meds, prefer running on high side has pt has labile BP and previous admission for hypotension - Addition of hydralazine with improved control, will cont to monitor. #Tobacco and EtOH abuse - Nicotine patches. No s/s of withdrawal and BAL negative at admission - Biodiesel Process Control Technician and monitor. Encourage cessation. ADRIANA protocol #CAD - cont home meds #Pancreatic Lesion - 2.4 x 2.4cm on pancreatic head. Ca 19-9 WNL per old records - Onc is Dr. García. Unclear etiology, will benefit from OP f/u Dvt ppx: SCDs - HELD heparin 2/2 thrombocytopenia IVF: SL Diet: Regular PCP: Carlos Thapa - DANNY Yee - "G" - Son, lives in [place]. Number is [phone] Dispo: Admitted to stroke for seizure 2/2 suspected medication noncompliance and sx hypoglycemia now resolved. Pre-renal HORTENCIA, resolved. UTI, treated. C diff colitis, treating. Acute on chronic anemia this AM, consider transfuse 1u pRBC. Pt near baseline. Family desires detention placement and pt open. CM assistance. Anticipate discharge with placement. Addendum - Attending - Attending Attestation Date/Time: 09/10/19 1042 I personally evaluated the patient and discussed the management with Dr. Thapa. I agree with the History, Examination, Assessment and Plan documented above with any addition or exceptions noted below. Patient overall stable. She is awaiting placement. Blood counts downtrended this morning in setting of known pancytopenia. Will transfuse 1 unit today.
[2019-09-10] MEDS: Acetaminophen 325 MG TAB PO PRN (05:58)
[2019-09-10] MEDS: Sodium Bicarbonate Tab 325 MG TAB PO SCH (09:19)
[2019-09-10] MEDS: Aspirin 81 mg Enteric Coated Tablet PO SCH (09:19)
[2019-09-10] MEDS: Famotidine 20 MG TAB PO SCH (09:19)
[2019-09-10] MEDS: hydrALAZINE 25 MG TAB PO SCH ×3 (09:19→22:31)
[2019-09-10] MEDS: Thiamine 100 MG TAB PO SCH (09:19)
[2019-09-10] MEDS: carBAMazepine 100 mg Chewable Tablet PO SCH (09:20)
[2019-09-10] MEDS: Carvedilol 25 MG TAB PO SCH ×2 (09:20→18:33)
[2019-09-10] MEDS: levETIRAcetam 500 MG TAB PO SCH ×2 (09:24→22:31)
[2019-09-10] MEDS: Magnesium Oxide 400 MG TAB PO SCH (09:24)
[2019-09-10] MEDS: Folic Acid 1 MG TAB PO SCH (09:25)
[2019-09-10] MEDS: Multivitamin W/ Minerals 1 TAB PO SCH (09:25)
--- NOTE | 2019-09-10 13:36 | PQF ---
CLINICAL DOCUMENTATION IMPROVEMENT CLARIFICATION FORM: ICD-10 Updated PLEASE DO AN ADDENDUM TO THE PROGRESS NOTE WITH ANY DOCUMENTATION UPDATES OR ADDITIONS AND CARRY THROUGH TO DC SUMMARY. THANK YOU. Date: 09/10/19 ATTN : DR. ROUSE Please exercise your independent, professional judgment in responding to the clarification form. Clinical indicators are provided on the bottom of this form for your review Please check appropriate box(s): [ ] Protein Calorie Malnutrition: [ ] Mild [ ] Moderate [ ] Severe [ ] Other Malnutrition (please specify) __ [ ] Underweight without malnutrition [ x] Cachexia [ ] Other diagnosis [ ] Unable to determine In addition, please specify: Present on Admission (POA): [ ] Yes [ ] No [ ] Unable to determine CLINICAL INDICATORS - SIGNS / SYMPTOMS / LABS / RESULTS AND LOCATION IN MR H&P 09/05: "MALNUTRITION AND DECONDITIONING" DIETARY ASSESSMENT 09/05: "PT APPEARS MALNOURISHED, THIN SKIN, SEVERE MUSCLE WASTING, REPORTS FEELING WEAK, AND 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." "RD OBSERVED SEVERE MUSCLE WASTING TO TRICEPS AND BICEPS....AND SEVERE ORBITAL FAT PAD LOSS." ALBUMIN 09/10: 2.7 BMI 15.3 RISKS: ALCOHOL ABUSE (H&P 09/05) H/O CKD STAGE 3 (H&P 09/05) PANCREATIC MASS (H&P 09/05) TREATMENT: DIETARY CONSULT DIETARY SUPPLEMENTS (RD ASSESSMENT 09/05) Moderate Malnutrition (in acute illness) Energy Intake: <75% of estimated energy requirement for > 7 days 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[employer] Winform ViewerWeight Loss: 1-2%/1 week; 5%/ 1 month; 7.5%/3 months Other: mild body fat loss; mild muscle mass loss; mild fluid accumulation; Severe Malnutrition (in acute illness) Energy Intake: < 50% of estimated energy requirement for > 5 days Weight Loss: >1-2%/1 week; >5%/1 month; >7.5%/3 months Other: moderate body fat loss; moderate muscle mass loss; moderate- severe fluid accumulation; measurably reduced sheet rock nailer strength Moderate Malnutrition (in chronic illness) Energy Intake: <75% of estimated energy requirement for >1 month Weight Loss: 5%/1 month; 7.5%/3 months; 10%/6 months; 20%/1 year Other: mild body fat loss; mild muscle mass loss; mild fluid accumulation Severe Malnutrition (in chronic illness) Energy Intake: <75% of estimated energy requirement for >1 month Weight Loss: >5%/1 month; >7.5%/3 months; >10%/6 months; >20%/1 year Other: severe body fat loss; severe muscle mass loss; severe fluid accumulation ; measurably reduced sheet rock nailer strength (This form is maintained as a part of the permanent medical record) 2014 [employer] All Rights Reserved [email or web address] [email or web address] Office: [phone] [facility]YCHIATRIC CENTERLuciana
[2019-09-11 05:06] LABS: #Eosinphils 0.1 thou/uL (0.0-0.7); #Lymphocytes 0.7 thou/uL (1.20-3.40); #Monocytes 0.3 thou/uL (0.11-0.59); #Neutrophils 1.4 thou/uL (1.40-6.50); %Eosinophils 5.6 % (0.0-10.0); %Lymphocytes 28.1 % (21.0-51.0); %Monocytes 10.2 % (0.0-10.0); %Neutrophils 56.1 % (42.0-75.0); Hemoglobin 7.6 g/dL (12.0-16.0); Mean Corpuscular HGB CONC 32.5 g/dL (32.0-36.0); Mean Corpuscular Hemoglobin 33.7 pg (27.0-31.0); Mean Platelet Volume 8.1 fL (7.4-10.4); Platelet Count 95 thou/uL (130-400); Red Blood Cell (RBC) Count 2.25 mill/uL (4.20-5.40); White Blood Cell (WBC) Count 2.5 thou/uL (4.8-10.8)
[2019-09-11 05:18] LABS: ALT (SGPT) Less than 7 U/L (8-55); AST (SGOT) 14 U/L (5-34); Albumin 2.8 g/dL (3.4-4.8); Alkaline Phosphatase 84 U/L (40-110); Anion Gap 13 mmol/L (10-20); BUN (Urea Nitrogen) 36 mg/dL (9.8-20.1); Bilirubin, Total 0.3 mg/dL (0.2-1.2); Calc. Creatinine Clearance 19 mL/min (70-130); Calcium 8.9 mg/dL (7.8-10.44); Carbon Dioxide 23 mmol/L (23-31); Chloride 109 mmol/L (98-107); Estimated GFR-MDRD 32; Globulin 2.8 g/dL (2.4-3.5); Glucose 88 mg/dL (80-115); Potassium 5.2 mmol/L (3.5-5.1); Protein, Total 5.6 g/dL (6.0-8.3); Sodium 140 mmol/L (136-145)
--- NOTE | 2019-09-11 08:12 | PDOC.FM ---
- Subjective Subjective: Doing well this morning, no acute events overnight. No continued diarrhea. No fever/chills, CP, SOB, abd pain. Tolerating PO well. Eager for placement. - Objective MAR Reviewed: Yes Vital Signs & Weight: Vital Signs (12 hours) Temp Pulse Resp BP BP Pulse Ox 09/11/19 06:11 99.2 F 84 14 161/95 H 99 09/10/19 23:41 97.8 F 83 16 138/80 100 09/10/19 22:31 81 158/82 H Weight Admit Weight 42.864 kg Weight 42.864 kg I&O: 09/10/19 09/11/19 09/12/19 06:59 06:59 06:59 Intake Total 657 1677 Balance 657 1677 Result Diagrams: 09/11/19 04:36 09/11/19 04:36 EKG Reviewed by me: Yes (Tele: NSR) Phys Exam - Physical Examination Constitutional: NAD (resting comfortably, chronically ill-appearing) HEENT: moist MMs Neck: supple Respiratory: no wheezing, no rales, no rhonchi, clear to auscultation bilateral Cardiovascular: RRR, no significant murmur, no rub Gastrointestinal: soft, non-tender, no distention, positive bowel sounds Musculoskeletal: no edema, pulses present Neurological: non-focal Psychiatric: normal affect Deviation from normal: A/O x2 - appears at baseline Skin: no rash Dx/Plan (1) Seizure disorder Code(s): G40.909 - EPILEPSY, UNSP, NOT INTRACTABLE, WITHOUT STATUS EPILEPTICUS Status: Chronic (2) Acute worsening of stage 3 chronic kidney disease Code(s): N18.3 - CHRONIC KIDNEY DISEASE, STAGE 3 (MODERATE) Status: Acute (3) Cardiomyopathy Code(s): I42.9 - CARDIOMYOPATHY, UNSPECIFIED Status: Chronic (4) Pancytopenia Code(s): D61.818 - OTHER PANCYTOPENIA Status: Chronic (5) Alcohol abuse Code(s): F10.10 - ALCOHOL ABUSE, UNCOMPLICATED Status: Chronic (6) CAD (coronary artery disease) Code(s): I25.10 - ATHSCL HEART DISEASE OF [place] CORONARY ARTERY W/O ANG PCTRS Status: Chronic (7) Hypertension Code(s): I10 - ESSENTIAL (PRIMARY) HYPERTENSION Status: Chronic Qualifiers: (8) Hypothyroidism Code(s): E03.9 - HYPOTHYROIDISM, UNSPECIFIED Status: Chronic Qualifiers: (9) Macrocytic anemia Code(s): D53.9 - NUTRITIONAL ANEMIA, UNSPECIFIED Status: Chronic (10) Pancreatic mass Status: Chronic (11) Tobacco abuse Code(s): Z72.0 - TOBACCO USE Status: Chronic (12) UTI (urinary tract infection) Status: Acute - Plan Plan: 69yo AAF with h/o CKDIII, malnutrition, ETOH abuse, chronic anemia, HTN, pancreatic mass, epilepsy presents with hypoglycemia and seizure #Acute on Chronic anemia and Pancytopenia - Hb 9.1 -> 7.4 -> 6.5 -> 7.6, No s/s of acute blood loss. Suspected 2/2 chronic malnutrition and alcoholism. Mixed etiology. - EGD 05/2019 for melena-no source of bleeding. Will repeat FOBT. - Iron studies WNL at previous admission - Known to Dr. García, will need continued f/u as OP. - S/p 1u pRBC 09/11 iw improvement of Hb - Holding DVT ppx 2/2 thrombocytopenia, will cont to monitor, encourage ambulating with PT, SCDs in place #C diff with moderate dehydration - multiple episodes of diarrhea with dry MM. S/P LR bolus. Sxs now resolved. - C Diff toxin and antigen positive. Enteric precautions. Oral vanc x10d #Hyperkalemia - K 4.6 -> 5.2, no events on tele, will monitor closely, gently IVF hydration and recheck #Fall in hospital - 2/2 mild delirium/agitation. Moved to room closer to nurses station. Fall precautions. - R forearm xray no fracture, soreness improved. No further falls #Seizure - Known seizure disorder, had 5-7min seizure in ED, tonic clonic - Suspected Medication noncompliance - Seizure precautions, ativan prn, no more seizures on floor - Cont home keppra and carbamazepine. Carbamazepine lv 1.9, low. Keppra lv 3.3, low-normal at admission #UTI, treated - Dirty UA, sxs of frequency, incontinence, and suprapubic tenderness. Sxs resolved with abx. - Rocephin 1g q24 hour x3d. UCx E. Coli. BCx 1/2 contamination and other NGTD #Chronic Malnutrition and deconditioning - PT/OT/Clamp Remover - Family desires alf placement, CM consulted. Family states not safe for home. - Albumin low at 2.7, prealb 16, WNL. Encourage PO intake. #Symptomatic hypoglycemia, resolved - BG 30 with EMS, BG 69 in ED. C-peptide WNL. - ACHS accuchecks and hypoglycemic protocol - Suspected 2/2 poor PO intake, EtOH. Encourage EtOH cessation and encourage PO intake. # Prerenal HORTENCIA on CKDIII, resolved - Cr 2.04 -> 1.5 -> 1.75 -> 1.9 - Encourage PO intake, gently IVF hydration as needed. Appears euvolemic on exam this morning. - Monitor lytes and replace as necessary #Elevated troponin, resolved - Likely 2/2 HORTENCIA and seizure, no sx, EKG no acute changes. Trops downtrended #CHFrEF with life vest - Chronic, stable. Hypovolemic on exam. BNP at baseline. - TTE on 05/2019 with EF of 25-29% - Continue with outpt cardiology. Known to Dr. Ulloa #cHTN - Cont home meds, prefer running on high side has pt has labile BP and previous admission for hypotension - Addition of hydralazine with improved control, will cont to monitor. #Tobacco and EtOH abuse - Nicotine patches. No s/s of withdrawal and BAL negative at admission - Program Mgr and monitor. Encourage cessation. ADRIANA protocol #CAD - cont home meds #Pancreatic Lesion - 2.4 x 2.4cm on pancreatic head. Ca 19-9 WNL per old records - Onc is Dr. García. Unclear etiology, will benefit from OP f/u Dvt ppx: SCDs - HELD heparin 2/2 thrombocytopenia IVF: SL Diet: Regular PCP: Carlos Gu "G" - Son, lives in [place]. Number is [phone] Dispo: Admitted to stroke for seizure 2/2 suspected medication noncompliance and sx hypoglycemia now resolved. Pre-renal HORTENCIA, resolved. UTI, treated. C diff colitis, treating. Acute on chronic anemia s/p 1u pRBC. Pt near baseline. Family desires alf placement and pt open for this. CM assistance. Anticipate discharge with placement as medically stable. Addendum - Attending - Attending Attestation Date/Time: 09/11/19 8347 I personally evaluated the patient and discussed the management with Dr. Thapa. I agree with the History, Examination, Assessment and Plan documented above with any addition or exceptions noted below. Patient overall stable. She is awaiting placement, but has been declined by her insurance. She has mild HORTENCIA today and will fluid hydrate. Continue to work with CM on placement but will be ready for d/c once that is set up.
[2019-09-11] MEDS ORDERED: Sodium Chloride 0.9% 500 ML IV SCH ×2 (09:15→17:15)
--- NOTE | 2019-09-11 09:31 | PQF ---
CLINICAL DOCUMENTATION IMPROVEMENT CLARIFICATION FORM: ICD-10 Updated PLEASE DO AN ADDENDUM TO THE PROGRESS NOTE WITH ANY DOCUMENTATION UPDATES OR ADDITIONS AND CARRY THROUGH TO DC SUMMARY. THANK YOU. DATE: 09/10/19 ATTN: DR. ROUSE Please exercise your independent, professional judgment in responding to the clarification form. Clinical indicators are provided on the bottom of this form for your review Please check appropriate box(s): [ ] Encephalopathy: Type: [ ] Acute [ ] Subacute [ ] Chronic Etiology: [ ] Hypertensive [ ] Metabolic [ ] Toxic [ ] Hepatic with Coma [ ] Hepatic w/o Coma [ ] Hypoxic [ ] Septic [ ] [place] [ ] Drug induced: [ ] Unspecified [ ] in the setting of underlying dementia [ ] Other (please specify) [ x] Transient Alteration of Awareness [ ] Other diagnosis: ____ [ ] Unable to determine In addition, please specify: Present on Admission (POA): [ ] Yes [ x ] No [ ] Unable to determine For continuity of documentation, please document condition throughout progress notes and discharge summary. Thank You. CLINICAL INDICATORS - SIGNS / SYMPTOMS / LABS / RESULTS AND LOCATION IN EMR PROGRESS NOTE 09/08: "WAS AGITATED AND REQUIRED PRN ATIVAN" NURSE NOTE 09/08: "PT STATED SHE WAS "COMING TO SIT WITH Y'ALL. WHEN ASKED WHAT HAPPENED, PT THOUGHT SHE WAS AT HER SISTER'S HOUSE..." RISKS: UTI (PROGRESS NOTE 09/08) SEIZURE DISORDER (PROGRESS NOTE 09/08) DEHYDRATION (PROGRESS NOTE 09/08) ETOH ABUSE (PROGRESS NOTE 09/08) HYPOGLYCEMIA (PROGRESS NOTE 09/09) TREATMENT: IV FLUIDS (ER) VANCOMYCIN (09/07-PRESENT) BLOOD, URINE, STOOL CULTURES (09/06-09/07) BED ALARM (NURSE NOTE 09/08) SODIUM BICARBONATE (09/06-PRESENT) PRN ATIVAN (GIVEN 09/08) (This form is maintained as a part of the permanent medical record) 2014 [employer]. All Rights Reserved RONI [email or web address] Office: [phone] [facility]
[2019-09-11] MEDS: Multivitamin W/ Minerals 1 TAB PO SCH (10:04)
[2019-09-11] MEDS: Thiamine 100 MG TAB PO SCH (10:04)
[2019-09-11] MEDS: Vancomycin HCl 25 MG/ML Oral PO SCH ×4 (10:04→23:59)
[2019-09-11] MEDS: Aspirin 81 mg Enteric Coated Tablet PO SCH (10:05)
[2019-09-11] MEDS: Sodium Bicarbonate Tab 325 MG TAB PO SCH (10:05)
[2019-09-11] MEDS: Famotidine 20 MG TAB PO SCH (10:05)
[2019-09-11] MEDS: carBAMazepine 100 mg Chewable Tablet PO SCH (10:05)
[2019-09-11] MEDS: hydrALAZINE 25 MG TAB PO SCH ×3 (10:06→22:07)
[2019-09-11] MEDS: Folic Acid 1 MG TAB PO SCH (10:06)
[2019-09-11] MEDS: levETIRAcetam 500 MG TAB PO SCH ×2 (10:06→22:07)
[2019-09-11] MEDS: Carvedilol 25 MG TAB PO SCH ×2 (10:07→17:19)
[2019-09-11] MEDS: Magnesium Oxide 400 MG TAB PO SCH (10:13)
[2019-09-11 16:36] LABS: Anion Gap 15 mmol/L (10-20); BUN (Urea Nitrogen) 35 mg/dL (9.8-20.1); Calc. Creatinine Clearance 17 mL/min (70-130); Calcium 9.1 mg/dL (7.8-10.44); Carbon Dioxide 24 mmol/L (23-31); Chloride 108 mmol/L (98-107); Estimated GFR-MDRD 27; Glucose 118 mg/dL (80-115); Potassium 5.1 mmol/L (3.5-5.1); Sodium 142 mmol/L (136-145)
--- NOTE | 2019-09-11 17:45 | RAD ---
Exam: Chest one view HISTORY:Fall. Right rib pain. Comparison: 05/09/2020 FINDINGS: Cardiac silhouette:Cardiomegaly. Aorta: Atherosclerosis and ectatic thoracic aorta. Pulmonary vessels: Normal Costophrenic angles: Clear LUNGS: No mass or consolidation. Chronic changes. Pneumothorax: None Osseous abnormalities: No acute osseous abnormalities. Incidentals: There appears to be calcified plaque in the left and right cervical carotid arteries. C onsider nonemergent carotid ultrasound IMPRESSION: 1. No acute cardiopulmonary process. 2. Atherosclerosis. 3. Atherosclerosis of the cervical carotid arteries. Consider nonemergent cervical carotid ultrasound Transcribed Date/Time: 09/11/2019 6:34 PM
[2019-09-12 04:50] LABS: #Eosinphils 0.2 thou/uL (0.0-0.7); #Lymphocytes 0.7 thou/uL (1.20-3.40); #Monocytes 0.1 thou/uL (0.11-0.59); #Neutrophils 1.3 thou/uL (1.40-6.50); %Basophils 0.3 % (0.0-1.0); %Eosinophils 7.5 % (0.0-10.0); %Lymphocytes 28.9 % (21.0-51.0); %Monocytes 5.9 % (0.0-10.0); %Neutrophils 57.4 % (42.0-75.0); Hemoglobin 7.5 g/dL (12.0-16.0); Mean Corpuscular HGB CONC 34.1 g/dL (32.0-36.0); Mean Corpuscular Hemoglobin 34.9 pg (27.0-31.0); Mean Platelet Volume 7.5 fL (7.4-10.4); Platelet Count 109 thou/uL (130-400); Red Blood Cell (RBC) Count 2.15 mill/uL (4.20-5.40); White Blood Cell (WBC) Count 2.3 thou/uL (4.8-10.8)
[2019-09-12 05:06] LABS: Anion Gap 12 mmol/L (10-20); BUN (Urea Nitrogen) 37 mg/dL (9.8-20.1); Calc. Creatinine Clearance 19 mL/min (70-130); Carbon Dioxide 24 mmol/L (23-31); Chloride 109 mmol/L (98-107); Estimated GFR-MDRD 31; Glucose 92 mg/dL (80-115); Sodium 140 mmol/L (136-145)
--- NOTE | 2019-09-12 06:22 | PDOC.FM ---
- Subjective Subjective: Doing well this morning, no acute events overnight. Tolerating PO well. Denies any fever/chills, CP, n/v. Diarrhea resolved. Eager for placement to [place]. - Objective MAR Reviewed: Yes Vital Signs & Weight: Vital Signs (12 hours) Temp Pulse Resp BP BP BP Pulse Ox 09/12/19 04:00 168/99 H 09/12/19 03:47 97.9 F 88 16 168/99 H 98 09/12/19 00:02 97.9 F 81 14 170/98 H 100 09/12/19 00:00 170/98 H 09/11/19 22:07 69 163/91 H 09/11/19 20:00 97.4 F L 69 16 163/91 H 163/91 H 100 09/11/19 19:30 147/78 H Weight Admit Weight 42.864 kg Weight 42.864 kg I&O: 09/10/19 09/11/19 09/12/19 06:59 06:59 06:59 Intake Total 513 5387 1179 Balance 654 1677 1179 Result Diagrams: 09/12/19 04:32 09/12/19 04:32 Phys Exam - Physical Examination Constitutional: NAD (chronicall-ill appearing, resting comfortably, good spirits , at baseline) HEENT: moist MMs Respiratory: no wheezing, no rales, no rhonchi, clear to auscultation bilateral Cardiovascular: RRR, no significant murmur, no rub Gastrointestinal: soft, non-tender, no distention, positive bowel sounds Musculoskeletal: no edema decreased overall muscle mass Neurological: non-focal, moves all 4 limbs Psychiatric: normal affect Deviation from normal: A/O x2 - at baseline Dx/Plan (1) Seizure disorder Code(s): G40.909 - EPILEPSY, UNSP, NOT INTRACTABLE, WITHOUT STATUS EPILEPTICUS Status: Chronic (2) Acute worsening of stage 3 chronic kidney disease Code(s): N18.3 - CHRONIC KIDNEY DISEASE, STAGE 3 (MODERATE) Status: Acute (3) Cardiomyopathy Code(s): I42.9 - CARDIOMYOPATHY, UNSPECIFIED Status: Chronic (4) Pancytopenia Code(s): D61.818 - OTHER PANCYTOPENIA Status: Chronic (5) Alcohol abuse Code(s): F10.10 - ALCOHOL ABUSE, UNCOMPLICATED Status: Chronic (6) CAD (coronary artery disease) Code(s): I25.10 - ATHSCL HEART DISEASE OF [place] CORONARY ARTERY W/O ANG PCTRS Status: Chronic (7) Hypertension Code(s): I10 - ESSENTIAL (PRIMARY) HYPERTENSION Status: Chronic Qualifiers: (8) Hypothyroidism Code(s): E03.9 - HYPOTHYROIDISM, UNSPECIFIED Status: Chronic Qualifiers: (9) Macrocytic anemia Code(s): D53.9 - NUTRITIONAL ANEMIA, UNSPECIFIED Status: Chronic (10) Pancreatic mass Status: Chronic (11) Tobacco abuse Code(s): Z72.0 - TOBACCO USE Status: Chronic (12) UTI (urinary tract infection) Status: Acute - Plan Plan: 69yo AAF with h/o CKDIII, malnutrition, ETOH abuse, chronic anemia, HTN, pancreatic mass, epilepsy presents with hypoglycemia and seizure #Acute on Chronic anemia and Pancytopenia, stable - Hb 9.1 -> 6.5 -> 7.5, No s/s of acute blood loss. Suspected 2/2 chronic malnutrition and alcoholism. Mixed etiology. - EGD 05/2019 for melena-no source of bleeding. Will repeat FOBT. - Iron studies WNL at previous admission - Known to Dr. García, will need continued f/u as OP. - S/p 1u pRBC 09/11 with improvement of Hb - Holding DVT ppx 2/2 thrombocytopenia, will cont to monitor, encourage ambulating with PT, SCDs in place #C diff with moderate dehydration - multiple episodes of diarrhea with dry MM. S/P LR bolus. Sxs now resolved. - C Diff toxin and antigen positive. Enteric precautions. Oral vanc x10d #Hyperkalemia, resolved - K 4.6 -> 5.2 -> 5.0, no events on tele, will monitor closely #Concern for underlying dementia - MMSE 19/[address] - Mentation does seem to wake and wane at time and remote history poor at times - Will need continued OP f/u and monitoring as well as discussion with family #Fall in hospital - 2/2 mild delirium/agitation. Moved to room closer to nurses station. Fall precautions. - R forearm xray no fracture, soreness improved. CXR no acute rib fractures. Likely bruising. No further falls #Seizure - Known seizure disorder, had 5-7min seizure in ED, tonic clonic - Suspected Medication noncompliance - Seizure precautions, ativan prn, no more seizures on floor - Cont home keppra and carbamazepine. Carbamazepine lv 1.9, low. Keppra lv 3.3, low-normal at admission #UTI, treated - Dirty UA, sxs of frequency, incontinence, and suprapubic tenderness. Sxs resolved with abx. - Rocephin 1g q24 hour x3d. UCx E. Coli. BCx 1/2 contamination and other NGTD #Chronic Malnutrition and deconditioning - PT/OT/Dental Intern - Family desires group home placement, CM consulted. Family states not safe for home. - Albumin low at 2.7, prealb 16, WNL. Encourage PO intake. #Symptomatic hypoglycemia, resolved - BG 30 with EMS, BG 69 in ED. C-peptide WNL. - ACHS accuchecks and hypoglycemic protocol. Suspected 2/2 poor PO intake, EtOH. Encourage EtOH cessation and encourage PO intake. # Prerenal HORTENCIA on CKDIII, resolved - Cr 2.04 -> 1.5 -> 1.75 -> 1.9 - Encourage PO intake, gently IVF hydration as needed. Appears euvolemic on exam. - Monitor lytes and replace as necessary #Elevated troponin, resolved - Likely 2/2 HORTENCIA and seizure, no sx, EKG no acute changes. Trops downtrended #CHFrEF with life vest - Chronic, stable. Hypovolemic on exam. BNP at baseline. - TTE on 05/2019 with EF of 25-29% - Continue with outpt cardiology. Known to Dr. Ulloa #cHTN - Cont home meds, prefer running on high side has pt has labile BP and previous admission for hypotension - Addition of hydralazine with improved control, will cont to monitor. #Tobacco and EtOH abuse - Nicotine patches. No s/s of withdrawal and BAL negative at admission - Home Office Claim Specialist and monitor. Encourage cessation. ADRIANA protocol #CAD - cont home meds #Pancreatic Lesion - 2.4 x 2.4cm on pancreatic head. Ca 19-9 WNL per old records - Onc is Dr. García. Unclear etiology, will benefit from OP f/u Dvt ppx: SCDs - HELD heparin 2/2 thrombocytopenia IVF: SL Diet: Regular PCP: Carlos Thapa - [facility] - "G" - Son, lives in [place]. Number is [phone] Dispo: Admitted to stroke for seizure 2/2 suspected medication noncompliance and sx hypoglycemia now resolved. Pre-renal HORTENCIA, resolved. UTI, treated. C diff colitis, treating. Acute on chronic anemia s/p 1u pRBC. Pt near baseline. Family desires group home placement and pt open for this. CM assistance. Anticipate discharge with placement as is medically stable. Addendum - Attending - Attending Attestation Date/Time: 09/12/19 1037 I personally evaluated the patient and discussed the management with Dr. Thapa. I agree with the History, Examination, Assessment and Plan documented above with any addition or exceptions noted below. Patient here for social reasons at this point more than medical illness. She was admitted due to seizure activity in the setting of medication noncompliance. She was also found to have Cdiff that is being treated. She has been stable for discharge for several days, but awaiting P2P discussion with insurance for possible SNF placement.
[2019-09-12] MEDS: Carvedilol 25 MG TAB PO SCH ×2 (10:18→17:28)
[2019-09-12] MEDS: Sodium Bicarbonate Tab 325 MG TAB PO SCH (10:18)
[2019-09-12] MEDS: Famotidine 20 MG TAB PO SCH (10:19)
[2019-09-12] MEDS: Vancomycin HCl 25 MG/ML Oral PO SCH ×3 (10:19→17:28)
[2019-09-12] MEDS: Folic Acid 1 MG TAB PO SCH (10:19)
[2019-09-12] MEDS: hydrALAZINE 25 MG TAB PO SCH ×2 (10:19→14:05)
[2019-09-12] MEDS: Multivitamin W/ Minerals 1 TAB PO SCH (10:20)
[2019-09-12] MEDS: Magnesium Oxide 400 MG TAB PO SCH (10:20)
[2019-09-12] MEDS: levETIRAcetam 500 MG TAB PO SCH (10:20)
[2019-09-12] MEDS: Aspirin 81 mg Enteric Coated Tablet PO SCH (10:20)
[2019-09-12] MEDS: Thiamine 100 MG TAB PO SCH (10:20)
[2019-09-12] MEDS: carBAMazepine 100 mg Chewable Tablet PO SCH (10:23)
[2019-09-12 15:51] VITALS: BP 140/87; TEMP 97.3
--- NOTE | 2019-09-13 03:36 | DIS ---
DATE OF ADMISSION: 09/05/2019 DATE OF DISCHARGE: 09/12/2019 CONSULTS: None. PROCEDURES: 1. Forearm x-ray of right arm on 09/08/2019, demonstrating no displaced fracture or dislocation. 2. Chest x-ray on 09/11/2019, demonstrating no acute cardiopulmonary process and atherosclerosis of the cervical and carotid arteries, to consider a nonemergent cervical and carotid ultrasound. 3. Transfusion: 1 unit packed red blood cells on 09/10/2019. PRIMARY DIAGNOSES: 1. Acute on chronic anemia and pancytopenia. 2. C difficile colitis with moderate dehydration. 3. Fall in hospital. 4. Symptomatic hypoglycemia, resolved. SECONDARY DIAGNOSES: 1. Hypokalemia, resolved, concern for underlying dementia. 2. Seizure disorder. 3. Urinary tract infection, treated. 4. Chronic malnutrition, deconditioning. 5. Acute kidney injury on chronic kidney disease 3. 6. Elevated troponin, resolved. 7. Heart failure with reduced ejection fraction. 8. Hypertension. 9. Alcohol and tobacco abuse. 10. Coronary artery disease. 11. Pancreatic lesion. DISCHARGE MEDICATIONS: 1. Zoloft 50 mg p.o. daily. 2. Carbamazepine 150 mg p.o. daily. 3. Coreg 25 mg p.o. b.i.d. 4. Keppra 500 mg p.o. b.i.d. 5. Protonix 40 mg p.o. daily. 6. Folic acid 1 mg p.o. daily. 7. Sodium bicarb 650 mg p.o. daily. 8. Ergocalciferol 2000 units p.o. daily. 9. Aspirin 81 mg p.o. daily. 10. Thiamine 100 mg p.o. daily. 11. Hydralazine 25 mg p.o. t.i.d. 12. Vancomycin 125 mg p.o. q.6 hours x5 days. HISTORY OF PRESENT ILLNESS AND HOSPITAL COURSE: The patient is a 69-year-old female with history of heart failure, with reduced ejection fraction, hypertension, CKD 3, pancreatic mass, and epilepsy, who presented to the ED for altered mental status and hypoglycemia. At the time of examination, the patient was unable to answer any questions due to her fatigue. History obtained from the family, who stated that the patient was found by her mom, slightly unresponsive. EMS was called, who found a blood glucose of 30. This responded to D10, and the patient was brought to the emergency department for further evaluation. In the emergency department, she had a seizure lasting approximately 5 to 7 minutes. Family stated that they were unsure if she had been taking her medications and unsure of her last drink. She is admitted to the stroke unit for a seizure and hypoglycemia. 1. Seizure. The patient had a seizure witnessed in the ED, tonic-clonic. Suspected secondary to medication noncompliance. She was placed on seizure precautions and Ativan p.r.n. that she did not require and had no more further seizures on the floor. Her carbamazepine and Keppra levels were low. She was continued on her home medication and did well and had no return of seizures throughout her hospitalization. 2. The patient was also found to have a UTI, symptomatic and E coli, susceptible to Rocephin. She completed a 3-day course for this and had no return of symptoms. 3. Symptomatic hypoglycemia. The patient had a blood glucose of 30 with EMS and 69 with the ED. She continued to do well throughout her hospitalization, actually ran hyperglycemic; has no known history of diabetes. This was suspected to be secondary to poor p.o. intake and alcohol abuse. She was encouraged to continue with good p.o. intake and alcohol cessation. 4. Prerenal HORTENCIA or CKD 3. The patient came with a creatinine of 2. This improved to about 1.7 to 1.9 with some gentle IV hydration. It does appear that the patient's chronic kidney disease may be worsening and this could be her new baseline. Her electrolytes were monitored and replaced as necessary. 5. Elevated troponin. The patient had initially an elevated troponin, secondary to her HORTENCIA and seizure. She had no EKG changes in these downtrended, and she had no pain or other ACS symptoms. 6. Hospital fall. The patient did have a fall in the hospital secondary to delirium. A forearm x-ray and chest x-ray were both negative for any acute fractures, and the patient had some mild bruising and bruising that improved with warm compresses. Throughout her hospitalization, she was able to be reoriented, and her mentation improved and she was able to ambulate with physical therapy well. 7. Acute on chronic anemia and pancytopenia. The patient presented with a hemoglobin of 9.1. This downtrended to 6.5. Thus, the patient was transfused with 1 unit of packed red blood cells with an improvement to 7.5. Her chronic anemia is mixed etiology, secondary to chronic malnutrition and alcoholism. Her iron studies were within normal limits. The patient needs to follow up with Dr. Garcaí, her plaque maker for further evaluation of this. 8. C difficile colitis with moderate dehydration. The patient had multiple episodes of diarrhea on her first night of hospitalization. Her C difficile antigen and toxin were checked, and these were both positive. The patient was started on oral vancomycin, completed 5 of her 10 days in the hospital and was discharged with the remainder of this prescription, and she was given some IV fluid hydration to resolve her moderate dehydration. 9. Concern for underlying dementia. The patient had MMSE performed with score of 19/30 and had waxing and waning mentation throughout her hospitalization. This will need to be continued to be followed up with discussion with her family as an outpatient. 10. Chronic malnutrition and deconditioning. The patient worked with PT, OT, and dietitian. Family does desire care home for the patient; however, insurance declined. The patient will need to be discharged to home to continue with home health, physical therapy and to work on placement as an outpatient. She would benefit greatly from long-term care. 11. Heart failure with reduced ejection fraction with Life Vest. This appears chronic and stable throughout her hospitalization and had no acute flares. She has an EF of 25% to 30% percent. She is known to Dr. Ulloa. She will need to continue outpatient followup. 12. Chronic hypertension. The patient is only on Coreg 25 mg p.o. b.i.d. at presentation; however, her blood pressure continued to run high in the 190. She was started on hydralazine 25 mg p.o. t.i.d. with her improvement of her blood pressure with no symptoms, was able to ambulate without orthostasis. We will continue this upon discharge, and she will need close outpatient followup. 13. Alcohol and tobacco abuse. This is contributing to many of the patient's problems, and she was encouraged to cut back and quit. At the time of the discharge, the patient was at her baseline and improved much from admission. She was able to ambulate with physical therapy. She is tolerating p.o. well. Infection is being treated as per above. Discharge plan discussed with the patient, who voiced agreement and understanding of this plan. Family and patient will continue to work on long-term placement as an outpatient. All questions were answered appropriately. The patient was discharged to home. DISPOSITION: Stable. DISCHARGE INSTRUCTIONS: 1. Location: Home. 2. Diet as tolerated. 3. Activity as tolerated. 4. Followup patient follow with primary care physician, Dr. Thapa within 1week of discharge. Job ID: [id number]
== END 2019-09-12 17:45 | disposition home health service (06) | DRG 101 ==
LOC: ERS 10:59 → 2SE 14:15 → OBSVTOIN 16:15 → INTOOBSV 16:15 → OBSVTOIN 09-08 15:58 → 2SE 09-08 20:50
PROVIDERS: ADMIT Student in an Organized Health Care Education/Training Program; ATTEND Student in an Organized Health Care Education/Training Program
PROC: 30233N1 Transfusion of Nonautologous Red Blood Cells into Peripheral Vein, Percutaneous Approach (ICD-10-PCS; principal; 2019-09-08)
DX: G40.409 Other generalized epilepsy and epileptic syndromes, not intractable, without status epilepticus (principal); D61.818 Other pancytopenia; N39.0 Urinary tract infection, site not specified; R64 Cachexia; Z68.1 Body mass index [BMI] 19.9 or less, adult; N17.9 Acute kidney failure, unspecified; I13.0 Hypertensive heart and chronic kidney disease with heart failure and stage 1 through stage 4 chronic kidney disease, or unspecified chronic kidney disease; A04.72 Enterocolitis due to Clostridium difficile, not specified as recurrent; I50.22 Chronic systolic (congestive) heart failure; E16.2 Hypoglycemia, unspecified; K86.89 Other specified diseases of pancreas; I25.10 Atherosclerotic heart disease of native coronary artery without angina pectoris; F17.210 Nicotine dependence, cigarettes, uncomplicated; F10.20 Alcohol dependence, uncomplicated; N18.3 Chronic kidney disease, stage 3 (moderate); E86.0 Dehydration; E87.5 Hyperkalemia; Z96.642 Presence of left artificial hip joint; Z91.041 Radiographic dye allergy status; Z79.899 Other long term (current) drug therapy; Z79.82 Long term (current) use of aspirin; Z90.710 Acquired absence of both cervix and uterus; Z91.14 Patient's other noncompliance with medication regimen
CPT/HCPCS: 36415; 36416; 36430; 71045; 80048; 80053; 80156; 80177; 81001; 82550; 82553; 83690; 83880; 84134; 84484; 84681; 85025; 86850; 86900; 86901; 87040; 87077; 87086; 87149; 87186; 87324; 87449; 87493; 93005; 96365; 96375; J0696; J1644; J1953; J2060; J3411; J3475; J3490; P9016

== ENCOUNTER 2019-12-22 12:42 | Observation (INO) | payer MEDICARE ==
--- NOTE | 2019-12-22 13:20 | RAD ---
RADIOGRAPH CHEST 1 VIEW: DATE: 12/22/2019 HISTORY: 69-year-old female with generalized weakness and anorexia FINDINGS: The thoracic aorta is tortuous and ectatic. There is no evidence of airspace density, cardiomegaly, p ulmonary edema, or pneumothorax. The lateral costophrenic angles are not effaced. IMPRESSION: 1) No acute pulmonary findings. 2) ectasia of thoracic aorta.
[2019-12-22 13:55] LABS: Hemoglobin 5.5 g/dL (12.0-16.0); Red Blood Cell (RBC) Count 1.52 mill/uL (4.20-5.40); White Blood Cell (WBC) Count 2.1 thou/uL (4.8-10.8)
[2019-12-22 14:04] LABS: #Lymphocytes 0.5 thou/uL (1.20-3.40); #Monocytes 0.2 thou/uL (0.11-0.59); #Neutrophils 1.4 thou/uL (1.40-6.50); %Basophils 1.6 % (0.0-1.0); %Eosinophils 1.5 % (0.0-10.0); %Monocytes 7.5 % (0.0-10.0); %Neutrophils 64.5 % (42.0-75.0); MDiff Complete? YES; Macrocytosis SLIGHT = 6-15 cells (100X) (0-5/hpf); Mean Corpuscular Hemoglobin 35.9 pg (27.0-31.0); Platelet Count 124 thou/uL (130-400); RBC Distribution Width 19.2 % (11.5-14.5)
[2019-12-22 14:07] LABS: ALT (SGPT) Less than 7 U/L (8-55); AST (SGOT) 16 U/L (5-34); Albumin 3.4 g/dL (3.4-4.8); Alkaline Phosphatase 96 U/L (40-110); Anion Gap 25 mmol/L (10-20); BUN (Urea Nitrogen) 38 mg/dL (9.8-20.1); Bilirubin, Total 0.5 mg/dL (0.2-1.2); Calc. Creatinine Clearance 0 mL/min (70-130); Calcium 8.6 mg/dL (7.8-10.44); Carbon Dioxide 16 mmol/L (23-31); Chloride 104 mmol/L (98-107); Estimated GFR-MDRD 24; Globulin 2.3 g/dL (2.4-3.5); Glucose 85 mg/dL (80-115); Protein, Total 5.7 g/dL (6.0-8.3); Sodium 141 mmol/L (136-145)
[2019-12-22 14:18] LABS: CKMB 1.5 ng/mL (0-6.6)
[2019-12-22] MEDS ORDERED: Ondansetron PF 4 MG/2 ML Vial ONE (14:38)
--- NOTE | 2019-12-22 14:53 | PDOC.FPRHP ---
- History of Present Illness Chief Complaint: Weakness History of Present Illness: Patient is a 69F with PMHx of seizures, anemia, HTN, cirrhosis, cardiomyopathy, HFrEF, recurrent pancreatitis, arthritis, and alcohol abuse that presents to the ED for evaluation of weakness. She states she had low blood pressure and vomited once, it was light brown in color. She denies hematemesis. She has had no appetite. Admitted to hospital within the last 30 days for symptomatic anemia. Lives at home with mother, smoking cigarettes and drinks alcohol regularly. ED Course: Zofran 4mg, 1L NS - Allergies/Adverse Reactions Allergies Allergy/AdvReac Type Severity Reaction Status Date / Time Gadolinium-Containing AdvReac Mild Emesis Verified 04/28/18 22:32 Contrast Medi - Home Medications Medication Instructions Recorded Confirmed Type Sertraline HCl 50 mg PO DAILY 09/17/18 12/22/19 History Carvedilol [Coreg] 25 mg PO BID-WM tab 06/04/19 12/22/19 Rx Pantoprazole [Protonix] 40 mg PO DAILY #0 06/19/19 12/22/19 Rx Folic Acid [Folvite] 1 mg PO DAILY 08/28/19 12/22/19 History Sodium Bicarbonate 650 mg PO DAILY 08/28/19 12/22/19 History Aspirin [Ecotrin Low Strength] 81 mg PO DAILY 09/05/19 12/22/19 History Ergocalciferol (Vitamin D2) 2,000 unit PO DAILY 09/05/19 12/22/19 History [Vitamin D2] Thiamine 100 mg PO DAILY 09/05/19 12/22/19 History hydrALAZINE [Apresoline] 25 mg PO TID #90 tab 09/12/19 12/22/19 Rx Ferrous Sulfate 325 mg PO DAILY 11/26/19 12/22/19 History Lisinopril [Zestril] 2.5 mg PO DAILY #30 tab 11/27/19 12/22/19 Rx levETIRAcetam 1,000 mg PO BID #60 tablet 11/27/19 12/22/19 Rx Cyanocobalamin (Vitamin B-12) 1,000 mcg PO DAILY 12/22/19 12/22/19 History [Vitamin B-12] - History PMHx: HTN, seizure disorder, Liver disease, cardiomyopathy, OA, hx of pancreatitis PSHx: hysterectomy, tubal ligation, left hip replacement FHx: noncontributory Social: drinks about 5 alcoholic beverages a day, smoking 1/2 ppd, denies drugs - Review of Systems General: reports: weight/appetite/sleep changes. denies: fever/chills, night sweats Eyes: denies: eye pain, vision changes ENT: denies: nasal congestion, rhinorrhea Respiratory: reports: exercise intolerance. denies: cough, congestion, shortness of breath Cardiovascular: denies: chest pain, palpitation, edema Gastrointestinal: reports: nausea, vomiting, abdominal pain. denies: diarrhea, constipation, GI bleeding Genitourinary: denies: dysuria, polyuria Skin: denies: rashes, lesions Musculoskeletal: denies: pain, tenderness Neurological: reports: weakness. denies: numbness, syncope, seizure Psychological: denies: anxiety, depression - Vital signs BP: 94/57 HR: 69 RR: 14 Tmax: 98.9 Pox: 100% on RA Wt: 34 kg - Physical Exam Constitutional: NAD, awake, alert and oriented -Constitutional: cachectic appearing HEENT: PERRLA, EOMI Neck: supple, FROM, trachea midline Chest: no-tender to palpation Heart: RRR, normal S1/S2, no murmurs/rubs/gallops, pulses present, no edema Lungs: CTAB, no respiratory distress, good air movement Abdomen: soft, bowel sounds present, no masses/distention -Abdomen: TTP in midepigastrium Musculoskeletal: normal tone, ROM grossly normal -Musculoskeletal: atrophy present Neurological: no focal deficit, CN II-XII intact, normal sensation Skin: no rash/lesions, good turgor, capillary refill <2 seconds Heme/Lymphatic: no unusual bruising or bleeding, no purpura, no petechia FMR H&P: Results - Labs Result Diagrams: 12/22/19 13:26 12/22/19 13:26 Lab results: WBC 2.1 thou/uL (4.8-10.8) L 12/22/19 13:26 Hgb 5.5 g/dL (12.0-16.0) L* 12/22/19 13:26 Hct 16.5 % (36.0-47.0) L 12/22/19 13:26 MCV 109.0 fL (78.0-98.0) H 12/22/19 13:26 Plt Count 124 thou/uL (130-400) L 12/22/19 13:26 Neutrophils % 64.5 % (42.0-75.0) 12/22/19 13:26 Sodium 141 mmol/L (136-145) 12/22/19 13:26 Potassium 4.0 mmol/L (3.5-5.1) 12/22/19 13:26 Chloride 104 mmol/L (98-107) 12/22/19 13:26 Carbon Dioxide 16 mmol/L (23-31) L 12/22/19 13:26 BUN 38 mg/dL (9.8-20.1) H 12/22/19 13:26 Creatinine 2.47 mg/dL (0.6-1.1) H 12/22/19 13:26 Glucose 85 mg/dL (80-115) 12/22/19 13:26 Lactic Acid 1.2 mmol/L (0.5-2.2) 12/22/19 13:26 Calcium 8.6 mg/dL (7.8-10.44) 12/22/19 13:26 Total Bilirubin 0.5 mg/dL (0.2-1.2) 12/22/19 13:26 AST 16 U/L (5-34) 12/22/19 13:26 ALT Less than 7 U/L (8-55) L 12/22/19 13:26 Alkaline Phosphatase 96 U/L (40-110) 12/22/19 13:26 CK-MB (CK-2) 1.5 ng/mL (0-6.6) 12/22/19 13:26 Serum Total Protein 5.7 g/dL (6.0-8.3) L 12/22/19 13:26 Albumin 3.4 g/dL (3.4-4.8) 12/22/19 13:26 FMR H&P: A/P - Problem List (1) Acute on chronic anemia Current Visit: No Status: Acute Code(s): D64.9 - ANEMIA, UNSPECIFIED (2) Acute worsening of stage 3 chronic kidney disease Current Visit: No Status: Acute Code(s): N18.3 - CHRONIC KIDNEY DISEASE, STAGE 3 (MODERATE) (3) CKD (chronic kidney disease) Current Visit: No Status: Acute Code(s): N18.9 - CHRONIC KIDNEY DISEASE, UNSPECIFIED (4) Severe protein-energy malnutrition Current Visit: No Status: Acute Code(s): E43 - UNSPECIFIED SEVERE PROTEIN- CALORIE MALNUTRITION (5) CAD (coronary artery disease) Current Visit: No Status: Chronic Code(s): I25.10 - ATHSCL HEART DISEASE OF [place] CORONARY ARTERY W/O ANG PCTRS (6) Cardiomyopathy Current Visit: No Status: Chronic Code(s): I42.9 - CARDIOMYOPATHY, UNSPECIFIED (7) Cholelithiases Current Visit: No Status: Chronic Code(s): K80.20 - CALCULUS OF GALLBLADDER W/O CHOLECYSTITIS W/O OBSTRUCTION (8) Hypertension Current Visit: No Status: Chronic Code(s): I10 - ESSENTIAL (PRIMARY) HYPERTENSION Qualifiers: Comment: - Plan Patient is a 69F with PMHx of seizures, anemia, HTN, cirrhosis, cardiomyopathy, HFrEF, prior episodes of pancreatitis, arthritis, anxiety, depression admitted for: Symptomatic anemia, Pancytopenia -H/H 5.5/16.5 -2u prbc ordered in ER. -will trend H&H tomorrow. Anemia has been worked up in the past without significant source. Recommended outpatient follow up. Likely 2/2 to severe malnutrition. Cardiomyopathy, HFrEF -echo: 06/07 EF 20-25% -continue home meds Cirrhosis -avoid hepatotoxic medications HTN -continue home meds Anxiety/Depression -continue patient's zoloft Alcohol abuse -ASE protocol -Recommend cessation Tobacco abuse -nicotine patch -recommend cessation Pancreatic mass -aware. DVT ppx: SCDs Diet: Regular Dispo: Stable Code: FULL PCP: CHAVO Thapa FMR H&P: Upper Level - Plan Date/Time: 12/22/19 1451 IRay MD, have evaluated this patient and agree with findings/plan as outlined by dietary internship resident. Pertinent changes/additions are listed here. Dena Oconnell is a 69 year old F with a PMH of pancytopenia, HTN, hx of seizures , HTN, cirrhosis, HFrEF, hx of pancreatitis, and alcohol abuse that presented to the ED for worsening weakness. Sx have been going on for the last 4 days. She states that she has had low BP at home and has vomited once at home, light brown, no bright red blood. Has had associated decreased appetite. Denies fever, chills, cough, chest pain, dyspnea, dysuria. Denies syncope or falls. Was admitted to hospital within last 30 days for symptomatic anemia. She was given unit of pRBC and discharged with instructions to follow up with hem/onc. She was not able to see the specialist. She continue to drink about 5 gin cocktails a day and smokes cigs. In the ED, Vitals were BP 116/65, HR 76, RR 16 , 100% on RA, T 97.6. Labs were significant for WBC count 2.1, Hg 5.5 Hct 16.5 , Platelets 124, MCV 109, BUN 38, Cr 2.47, Trop 0.029, UA dirty, Lactic 1.2, CXR showed no acute findings. On exam, patient cachectic but in no acute distress, HEENT MMM, EOMI, PERRL, Heart RRR no murmurs, Lungs CTAB, Abdomen soft , ND, mild midepigastric ttp, Ext no cyanosis or edema, Skin no bruising/ petechiae. In the ED, she received 1 L NS and zofran. Admitting patient for symptomatic anemia. Will transfuse 2 U pRBC and trend H/H. Pt has had complete work up for pancytopenia in previous admissions. Thought to be due to significant alcohol abuse and antiepileptic meds may be contributing. Was supposed to have follow up with Heme after previous admission. Will attempt to coordinate this prior to this discharge. Continue IVFs. Anticipate hospital stay <48 hours. Please see dietary internship note above for full H&P, which I have reviewed and agree with. Addendum - Attending - Attending Attestation Date/Time: 12/22/192008 I personally evaluated the patient and discussed the management with Dr. Rosales I agree with the History, Examination, Assessment and Plan documented above with any addition or exceptions noted below- Patient is a 69F with h/o seizures , pancytopenia, HTN, cirrhosis, cardiomyopathy, HFrEF, arthritis, and alcohol abuse that presents to the ED for evaluation of weakness. She states she had low blood pressure and vomited once, it was light brown in color. She denies hematemesis. She has had no appetite. Denies any melena or BRBPR. Afebrile VSS. Exam repeated by me and agree with resident's findings. Labs: WBC=2.1, H/H=5.5/ 16.5, Nrd=427, BYA=157, Cx=240, K=4.0, Kp=615, CO2=16, BUN/Cr= 38/2.47, Gluc= 85. Lactic acid=1.2 A/P: 1) Symptomatic anemia- Admit to telemetry. Transfuse 2u pRBCs. 2) Pancytopenia- most likely secondary to chronic alcohol use. Has failed to follow-up with hematology as recommended and referred. 3) Seizure d/o - will check keppra level. 4) HFrEF- stable; monitor closely.
[2019-12-22] MEDS ORDERED: Acetaminophen 325 MG TAB PO PRN (15:21)
[2019-12-22] MEDS ORDERED: Nicotine 14 MG PATCH TD SCH (15:30)
[2019-12-22] MEDS ORDERED: Diazepam 5 MG TAB PO PRN (15:35)
[2019-12-22] MEDS ORDERED: Thiamine HCl 200 MG/2 ML VIAL IM SCH (15:45)
[2019-12-22] MEDS ORDERED: Diazepam 5 MG TAB PO SCH (15:45)
[2019-12-22 16:04] LABS: Bacteria/HPF 4+ HPF (None Seen); Bilirubin Negative (Negative); Blood, Urine Trace (Negative); Clarity Turbid (Clear); Glucose, Urine (Dipstick) Normal (Negative); Leukocyte Negative Leu/uL (Negative); Nitrite 1+ (Negative); Protein, Urine (Dipstick) Negative (Neg-Trace); RBC/HPF 0-3 HPF (0-3); Urobilinogen Normal mg/dL (Less than 2); WBC/HPF 0-3 HPF (0-3)
[2019-12-22 17:44] VITALS: BMI 14.8
[2019-12-22] MEDS ORDERED: Famotidine 20 MG TAB PO SCH (21:00)
[2019-12-23 02:36] LABS: Hemoglobin 8.3 g/dL (12.0-16.0); Platelet Count 90 thou/uL (130-400)
[2019-12-23] MEDS ORDERED: Diazepam 5 MG TAB PO PRN (04:00)
[2019-12-23 04:55] LABS: #Lymphocytes 0.7 thou/uL (1.20-3.40); #Monocytes 0.3 thou/uL (0.11-0.59); #Neutrophils 1.4 thou/uL (1.40-6.50); %Eosinophils 1.6 % (0.0-10.0); %Lymphocytes 29.3 % (21.0-51.0); %Monocytes 10.3 % (0.0-10.0); %Neutrophils 57.9 % (42.0-75.0); Hemoglobin 8.3 g/dL (12.0-16.0); Mean Corpuscular HGB CONC 33.6 g/dL (32.0-36.0); Mean Corpuscular Hemoglobin 33.1 pg (27.0-31.0); Mean Corpuscular Volume 98.5 fL (78.0-98.0); Platelet Count 94 thou/uL (130-400); RBC Distribution Width 20.7 % (11.5-14.5); White Blood Cell (WBC) Count 2.4 thou/uL (4.8-10.8)
[2019-12-23 05:12] LABS: Anion Gap 17 mmol/L (10-20); BUN (Urea Nitrogen) 39 mg/dL (9.8-20.1); Calc. Creatinine Clearance 15 mL/min (70-130); Calcium 8.4 mg/dL (7.8-10.44); Carbon Dioxide 20 mmol/L (23-31); Chloride 109 mmol/L (98-107); Estimated GFR-MDRD 25; Glucose 92 mg/dL (80-115); Potassium 4.1 mmol/L (3.5-5.1); Sodium 142 mmol/L (136-145)
--- NOTE | 2019-12-23 06:11 | PDOC.FM ---
- Subjective Subjective: Doing well this morning. States she wants to go home. However, still complaining of weakness. - Objective MAR Reviewed: Yes Vital Signs & Weight: Vital Signs (12 hours) Temp Pulse Pulse Resp BP BP Pulse Ox 12/23/19 03:36 99.1 F 75 20 160/94 H 97 12/23/19 00:00 98.0 F 75 14 159/98 H 12/22/19 23:12 98.0 F 75 14 159/98 H 96 12/22/19 20:00 97.1 F L 68 14 123/72 97 Weight Weight 41.549 kg I&O: 12/21/19 12/22/19 12/23/19 06:59 06:59 06:59 Intake Total 1000 Output Total 200 Balance 800 Result Diagrams: 12/23/19 04:35 12/23/19 04:35 Phys Exam - Physical Examination Constitutional: NAD HEENT: PERRLA, moist MMs Neck: supple, full ROM Respiratory: no wheezing, no rales, no rhonchi, clear to auscultation bilateral Cardiovascular: RRR, no significant murmur Gastrointestinal: soft, no distention Musculoskeletal: no edema, pulses present Neurological: non-focal, normal sensation, moves all 4 limbs Psychiatric: normal affect, A&O x 3 Skin: no rash, normal turgor Dx/Plan (1) Acute on chronic anemia Code(s): D64.9 - ANEMIA, UNSPECIFIED Status: Acute (2) Acute worsening of stage 3 chronic kidney disease Code(s): N18.3 - CHRONIC KIDNEY DISEASE, STAGE 3 (MODERATE) Status: Acute (3) CKD (chronic kidney disease) Code(s): N18.9 - CHRONIC KIDNEY DISEASE, UNSPECIFIED Status: Acute (4) Severe protein-energy malnutrition Code(s): E43 - UNSPECIFIED SEVERE PROTEIN-CALORIE MALNUTRITION Status: Acute (5) CAD (coronary artery disease) Code(s): I25.10 - ATHSCL HEART DISEASE OF [place] CORONARY ARTERY W/O ANG PCTRS Status: Chronic (6) Cardiomyopathy Code(s): I42.9 - CARDIOMYOPATHY, UNSPECIFIED Status: Chronic (7) Cholelithiases Code(s): K80.20 - CALCULUS OF GALLBLADDER W/O CHOLECYSTITIS W/O OBSTRUCTION Status: Chronic (8) Hypertension Code(s): I10 - ESSENTIAL (PRIMARY) HYPERTENSION Status: Chronic Qualifiers: - Plan Plan: Patient is a 69F with PMHx of seizures, anemia, HTN, cirrhosis, cardiomyopathy, HFrEF, prior episodes of pancreatitis, arthritis, anxiety, depression admitted for: Symptomatic anemia, Pancytopenia -2u prbc transfused. 12/22/2019. -H/H improved to 8.3/24.7. Cardiomyopathy, HFrEF -echo: 06/07 EF 20-25% -continue home meds Cirrhosis -avoid hepatotoxic medications HTN -continue home meds Anxiety/Depression -continue patient's zoloft Alcohol abuse -ASE protocol -Recommend cessation Tobacco abuse -nicotine patch -recommend cessation Pancreatic mass -aware. DISPO: Discussed case with patient's PCP, Dr. Thapa, and the goal from her last admission was to find placement for her in SNF. Her son is interested in fci options, however the patient is not inclined. Will ask CM to see patient and determine options for placement. DVT ppx: SCDs Diet: Regular Dispo: Stable Code: FULL PCP: CHAVO Thapa Addendum - Attending - Attending Attestation Date/Time: 12/23/19 0669 I personally evaluated the patient and discussed the management with Dr. Rosales I agree with the History, Examination, Assessment and Plan documented above with any addition or exceptions noted below- Patient feeling better. Ate breakfast. Afebrile VSS. A/P: 1) Anemia- H/H improved; cause is multifactorial. 2) Deconditioning- patient refuses rehab or SNF; stable for discharge. D/c home today.
[2019-12-23] MEDS ORDERED: Carvedilol 25 MG TAB PO SCH (08:00)
[2019-12-23] MEDS ORDERED: Thiamine 100 MG TAB PO SCH (09:00)
[2019-12-23] MEDS ORDERED: hydrALAZINE 25 MG TAB PO SCH (09:00)
[2019-12-23] MEDS ORDERED: Non-Formulary Item 1 EACH (Sertraline Hcl [Sertraline Hcl] 50 MG) PO SCH (09:00)
[2019-12-23] MEDS ORDERED: levETIRAcetam 500 MG TAB PO SCH (09:00)
[2019-12-23] MEDS ORDERED: Lisinopril 2.5 MG TAB PO SCH (09:00)
[2019-12-23] MEDS ORDERED: Aspirin 81 mg Enteric Coated Tablet PO SCH (09:00)
[2019-12-23] MEDS ORDERED: Folic Acid 1 MG TAB PO SCH (09:00)
[2019-12-23] MEDS ORDERED: Sodium Bicarbonate Tab 325 MG TAB PO SCH (09:00)
[2019-12-23] MEDS ORDERED: Non-Formulary Item 1 EACH (Sodium Bicarbonate [Sodium Bicarbonate] 650 MG) PO SCH (09:00)
[2019-12-23] MEDS ORDERED: Multivitamin W/ Minerals 1 TAB PO SCH (09:00)
[2019-12-23] MEDS ORDERED: LEVETIRACETAM 1000 MG PO SCH (09:00)
[2019-12-23] MEDS ORDERED: Magnesium Oxide 400 MG TAB PO SCH (09:00)
[2019-12-23 11:21] VITALS: BP 133/77; TEMP 98.1
[2019-12-23] MEDS ORDERED: Famotidine 20 MG TAB PO SCH (21:00)
--- NOTE | 2019-12-24 14:18 | DIS ---
DATE OF ADMISSION: 12/22/2019 DATE OF DISCHARGE: 12/23/2019 RESIDENT: Yaa Rosales MD ADMITTING ATTENDING: Maria De Jesus Le MD DISCHARGE ATTENDING: Maria De Jesus Le MD CONSULTS: None. PROCEDURES: Transfusion of 2 units of packed red blood cells. PRIMARY DIAGNOSIS: Symptomatic anemia. SECONDARY DIAGNOSES: 1. Pancytopenia. 2. Cardiomyopathy. 3. Heart failure with reduced ejection fraction. 4. Cirrhosis. 5. Hypertension. 6. Anxiety and depression. 7. Alcohol abuse. 8. Tobacco abuse. 9. Pancreatic mass. DISCHARGE MEDICATIONS: 1. Aspirin. 2. Vitamin B12. 3. Vitamin D2. 4. Iron supplement. 5. Folic acid. 6. Sertraline. 7. Sodium bicarbonate. 8. Thiamine. 9. Carvedilol. 10. Cefdinir 300 mg p.o. b.i.d. for 5 days. 11. Hydralazine. 12. Keppra. 13. Lisinopril. 14. Protonix. DISCONTINUED MEDICATIONS: None. HISTORY OF PRESENT ILLNESS/HOSPITAL COURSE: Ms. Oconnell is a 69-year-old female with a history of anemia and chronic alcohol abuse complicated by severe malnutrition, who presents to the ER for weakness and low blood pressure and one episode of light brown emesis. She denied hematemesis or bleeding elsewhere. On admission, her hemoglobin was noted to be 5.5, and the decision was made to place her overnight in the hospital for transfusion of blood products and monitoring of vital signs. Urine culture collected in the ER grew out E coli bacteria. However, the patient did not have symptoms, but the culture grew out greater than 100,000 copies of colony-forming units, thus she was discharged with p.o. antibiotics as outpatient. The patient improved after 2 units of packed red blood cells. It was strongly recommended that she be discharged to nursing home facility or rehab facility. However, the patient declined. The patient was discharged home. DISPOSITION: Guarded. DISCHARGE INSTRUCTIONS: LOCATION: Home. DIET: Regular. ACTIVITY: Ad alexander. FOLLOWUP: Follow up with primary care physician, Dr. Thapa, within 7 days. Job ID: [id number]
== END 2019-12-23 13:52 | disposition home or self-care (01) ==
LOC: ERS 12:42 → 2NO 17:16
PROVIDERS: ADMIT Family Medicine; ATTEND Family Medicine
DX: I13.0 Hypertensive heart and chronic kidney disease with heart failure and stage 1 through stage 4 chronic kidney disease, or unspecified chronic kidney disease (principal); N18.3 Chronic kidney disease, stage 3 (moderate); I50.20 Unspecified systolic (congestive) heart failure; D63.1 Anemia in chronic kidney disease; D61.818 Other pancytopenia; I42.9 Cardiomyopathy, unspecified; K74.60 Unspecified cirrhosis of liver; F41.9 Anxiety disorder, unspecified; F32.9 Major depressive disorder, single episode, unspecified; F10.10 Alcohol abuse, uncomplicated; F17.210 Nicotine dependence, cigarettes, uncomplicated; G40.909 Epilepsy, unspecified, not intractable, without status epilepticus; I25.10 Atherosclerotic heart disease of native coronary artery without angina pectoris; K80.20 Calculus of gallbladder without cholecystitis without obstruction; K86.9 Disease of pancreas, unspecified; M19.90 Unspecified osteoarthritis, unspecified site; E43 Unspecified severe protein-calorie malnutrition; Z68.1 Body mass index [BMI] 19.9 or less, adult; Z79.82 Long term (current) use of aspirin; Z79.899 Other long term (current) drug therapy; Z91.041 Radiographic dye allergy status
CPT/HCPCS: 36430; 71045; 80048; 80053; 80177; 82553; 83605; 84484 ×2; 85014; 85018; 85025 ×2; 85049; 86850; 86900; 86901; 86920; 87077; 87086; 87186; 93005; 96361; 96372; 96374; 97139 ×3; 99285; G0378 ×2; P9016; 36415; 81003; 81015; J2405; J3411

== ENCOUNTER 2020-02-14 12:45 | Inpatient (IN) | payer MEDICARE ==
[2020-02-14 13:42] LABS: Hemoglobin 4.2 g/dL (12.0-16.0); Mean Corpuscular HGB CONC 34.3 g/dL (32.0-36.0); Mean Corpuscular Hemoglobin 37.9 pg (27.0-31.0); RBC Distribution Width 18.4 % (11.5-14.5); Red Blood Cell (RBC) Count 1.12 mill/uL (4.20-5.40); White Blood Cell (WBC) Count 2.9 thou/uL (4.8-10.8)
[2020-02-14] MEDS ORDERED: Cefepime 2 GM VIAL ONE (13:50)
[2020-02-14] MEDS ORDERED: Vancomycin 1 GM/200 ML BAG ONE (13:50)
[2020-02-14 13:51] LABS: Acetaminophen Less than 6.0 mcg/mL (10.0-30.0); Alcohol Less than 10 mg/dL (Less than 10); Salicylate Less than 8.0 mg/dL (15.0-30.0)
[2020-02-14 13:58] LABS: ALT (SGPT) 7 U/L (8-55); AST (SGOT) 17 U/L (5-34); Albumin 2.9 g/dL (3.4-4.8); Alkaline Phosphatase 115 U/L (40-110); Anion Gap 20 mmol/L (10-20); BUN (Urea Nitrogen) 55 mg/dL (9.8-20.1); Bilirubin, Total 0.3 mg/dL (0.2-1.2); Calc. Creatinine Clearance 0 mL/min (70-130); Carbon Dioxide 20 mmol/L (23-31); Chloride 104 mmol/L (98-107); Estimated GFR-MDRD 18; Globulin 2.5 g/dL (2.4-3.5); Glucose 110 mg/dL (80-115); Lipase 403 U/L (8-78); Potassium 4.1 mmol/L (3.5-5.1); Protein, Total 5.4 g/dL (6.0-8.3); Sodium 140 mmol/L (136-145)
[2020-02-14 14:02] LABS: #Eosinphils 0.1 thou/uL (0.0-0.7); #Lymphocytes 0.3 thou/uL (1.20-3.40); #Monocytes 0.2 thou/uL (0.11-0.59); #Neutrophils 2.2 thou/uL (1.40-6.50); %Basophils 0.2 % (0.0-1.0); %Eosinophils 4.2 % (0.0-10.0); %Lymphocytes 11.3 % (21.0-51.0); %Monocytes 7.5 % (0.0-10.0); %Neutrophils 76.8 % (42.0-75.0); MDiff Complete? YES; Macrocytosis SLIGHT = 6-15 cells (100X) (0-5/hpf); Mean Platelet Volume 7.4 fL (7.4-10.4); Platelet Count 117 thou/uL (130-400); Platelet Morphology Comment Appears Adequate
[2020-02-14 14:14] LABS: Prothrombin Time 12.7 sec (12.0-14.7)
--- NOTE | 2020-02-14 14:19 | RAD ---
PORTABLE CHEST: 02/14/20 HISTORY: Weakness. Lungs appear clear. No infiltrate or vascular congestion. Heart size within normal range. No change f rom prior exam of 12/22/19. IMPRESSION: No acute process. POS: AGW
[2020-02-14 15:08] LABS: Bacteria/HPF 4+ HPF (None Seen); Bilirubin Negative (Negative); Blood, Urine Negative (Negative); Clarity Turbid (Clear); Glucose, Urine (Dipstick) Normal (Negative); Ketone, Urine 20 mg/dL (Negative); Leukocyte 500 Leu/uL (Negative); Nitrite Negative (Negative); Protein, Urine (Dipstick) 20 mg/dL (Neg-Trace); RBC/HPF 0-3 HPF (0-3); Specific Gravity, Urine 1.012 (1.002-1.036); Squamous Epithelial 0-3 HPF (0-3)
[2020-02-14 15:23] LABS: Amphetamine Not Detected (NotDetected); Barbiturates Screen Not Detected (NotDetected); Benzodiazepine Screen Not Detected (NotDetected); Cocaine Metabolite Screen Not Detected (NotDetected); Medtox Control Line Valid? VALID (VALID); Medtox Reader # READER 1; Methadone Not Detected (NotDetected); Methamphetamine Not Detected (NotDetected); Opiate Screen Not Detected (NotDetected); Oxycodone Screen Not Detected (NotDetected); Phencyclidine (PCP) Not Detected (NotDetected); THC/Cannabinoid Screen Not Detected (NotDetected); Tricyclic Screen Not Detected (NotDetected)
[2020-02-14] MEDS ORDERED: Bisacodyl 5 MG TAB PO PRN (16:02)
[2020-02-14] MEDS ORDERED: Senokot S 8.6-50 MG TAB PO PRN (16:02)
[2020-02-14 16:51] LABS: Iron 29 ug/dL (50-170); Iron Binding Capacity, Total 119 mcg/dL (265-497)
[2020-02-14] MEDS ORDERED: Carvedilol 25 MG TAB PO SCH (17:00)
--- NOTE | 2020-02-14 17:31 | HP ---
CHIEF COMPLAINT: Weakness and disorientation. HISTORY OF PRESENT ILLNESS: A 69-year-old female with a history of chronic alcohol use, chronic anemia, and pancytopenia, presenting with generalized weakness and disorientation, probably due to weakness and significant hypovolemia and urinary tract infection, as well as symptomatic anemia with a hemoglobin of 4.2. She does have an underlying history of chronic pancytopenia, probably contributed by ongoing alcohol abuse. Her lipase level is elevated at 403. Urine suggestive of infection. The patient will be brought in for further workup. I am not able to get much information from the patient directly as she is slightly disoriented. Her mother at bedside and provided me information. She is not sure about pancreatic mass, but she knows that her daughter followed with the [facility]. I have reviewed her previous charts. Her blood pressure on evaluation by EMS was systolic in 70s; after fluid, it improved to 90. REVIEW OF SYSTEMS: Not obtainable. ALLERGIES: GADOLINIUM-CONTAINING CONTRAST MEDIA. PAST MEDICAL HISTORY: Pancytopenia, chronic alcohol use, hypertension, depression, questionable pancreatic mass versus inflammatory process. SOCIAL HISTORY: The patient still actively smokes, but less than half a pack a day and she does drink per mother is very little. FAMILY HISTORY: Mother has arthritis as well as GERD. Father of throat cancer at the age 60. PHYSICAL EXAMINATION: VITAL SIGNS: Monitor shows currently her systolic is in the 90s. GENERAL: She is quite somnolent. Mother at bedside. CARDIOVASCULAR: Regular rate and rhythm without murmurs, rubs, or gallops. LUNGS: Clear. ABDOMEN: Quite benign. EXTREMITIES: Without any rash or pitting edema. NEUROLOGIC: I did not appreciate any focal deficit; however, the patient is quite somnolent and not able to perform a complete neurological exam. LABORATORY DATA: Hemoglobin 4.2, platelet 117, WBC 2.9. Creatinine 3.06. UA, signs of infection with significant leukocyte esterase as well as the pyuria and bacteria. It is quite turbid. Blood alcohol less than 10. Chest x-ray negative. EKG showed sinus rhythm. Troponin is negative. IMPRESSION AND PLAN: This is a 69-year-old female with chronic alcohol use and pancytopenia, presenting with the following. 1. Sepsis secondary to urinary tract infection and hypovolemia. 2. Symptomatic anemia with significant low hemoglobin. 3. Pancytopenia. 4. Acute pancreatitis. 5. Acute on chronic kidney disease stage 3. 6. The patient received broad-spectrum antibiotics and 2 L of fluid improved her blood pressure to 97/69. Blood and urine culture are scheduled. We will give her a ceftriaxone and follow the culture results. 7. Metabolic encephalopathy. Again, supportive measures as above. 8. Symptomatic anemia. The patient does not have any bleeding episodes. She had normal esophagogastroduodenoscopy in May 2019. 9. We will get iron study panel and then continue with the transfusion. Unfortunately, she is already being transfused, so we have to hold on the iron study for now. 10. Acute pancreatitis. Again, aggressive hydration. The patient does have a history of questionable pancreatic mass, followed with Cancer Clinic. It appears that she was here in August 2019 with similar hypotension scenario. The pancreatic mass has been biopsied at [facility] in May 2019. The results were not followed through. She was scheduled in Cancer Clinic and it appears that she did not follow through that as well. A CT scan done in November 2019 showed 13 mm simple appearing cystic structure within the head of the pancreas, reflecting a pseudocyst demonstrating interval decrease in size from the previous examination. Imaging followup recommended at that time. 11. I believe this can be pursued again in the outpatient clinic for now. We will do the transfusion and follow the culture results. 12. Pancytopenia likely due to chronic alcohol use. We may need to do MRI to further define this pancreatic abnormality, which may not be done until this lipase levels improved, so we will aggressively hydrate and follow up in a.m. Keep her n.p.o. for now. Job ID: [id number] [facility] SYSTEMLuciana
[2020-02-14] MEDS: NS 0.9% w/ 40 MEQ KCL 100 ML IV SCH ×4 (19:15→21:27)
[2020-02-14] MEDS: NS 0.9% w/ 40 MEQ KCL 1,000 ML IV SCH (21:26)
[2020-02-14 23:13] LABS: #Eosinphils 0.1 thou/uL (0.0-0.7); #Lymphocytes 0.7 thou/uL (1.20-3.40); #Monocytes 0.2 thou/uL (0.11-0.59); #Neutrophils 1.3 thou/uL (1.40-6.50); %Basophils 0.1 % (0.0-1.0); %Eosinophils 6.4 % (0.0-10.0); %Lymphocytes 30.6 % (21.0-51.0); %Monocytes 8.5 % (0.0-10.0); %Neutrophils 54.4 % (42.0-75.0); Hemoglobin 8.7 g/dL (12.0-16.0); Mean Corpuscular HGB CONC 35.2 g/dL (32.0-36.0); Mean Corpuscular Hemoglobin 34.3 pg (27.0-31.0); Mean Corpuscular Volume 97.6 fL (78.0-98.0); Mean Platelet Volume 8.2 fL (7.4-10.4); Platelet Count 31 thou/uL (130-400); Platelet Morphology Comment Appears Decreased; RBC Distribution Width 19.4 % (11.5-14.5); Red Blood Cell (RBC) Count 2.54 mill/uL (4.20-5.40); White Blood Cell (WBC) Count 2.3 thou/uL (4.8-10.8)
[2020-02-15] MEDS: cefTRIAXone\\ROCEPHIN 1 GM in Sodium Chloride 0.9% 100 ML IVPB SCH (02:44)
[2020-02-15 04:24] LABS: #Eosinphils 0.2 thou/uL (0.0-0.7); #Lymphocytes 0.5 thou/uL (1.20-3.40); #Monocytes 0.2 thou/uL (0.11-0.59); #Neutrophils 1.4 thou/uL (1.40-6.50); %Basophils 0.9 % (0.0-1.0); %Eosinophils 7.5 % (0.0-10.0); %Monocytes 9.1 % (0.0-10.0); %Neutrophils 61.5 % (42.0-75.0); Hemoglobin 9.6 g/dL (12.0-16.0); Mean Corpuscular HGB CONC 33.9 g/dL (32.0-36.0); Mean Corpuscular Hemoglobin 33.2 pg (27.0-31.0); Mean Corpuscular Volume 97.8 fL (78.0-98.0); Mean Platelet Volume 7.3 fL (7.4-10.4); Platelet Count 82 thou/uL (130-400); RBC Distribution Width 19.7 % (11.5-14.5); White Blood Cell (WBC) Count 2.2 thou/uL (4.8-10.8)
[2020-02-15 04:36] LABS: Anion Gap 16 mmol/L (10-20); BUN (Urea Nitrogen) 51 mg/dL (9.8-20.1); Calc. Creatinine Clearance 16 mL/min (70-130); Carbon Dioxide 17 mmol/L (23-31); Chloride 113 mmol/L (98-107); Estimated GFR-MDRD 22; Glucose 80 mg/dL (80-115); Sodium 141 mmol/L (136-145)
[2020-02-15] MEDS: NS 0.9% w/ 40 MEQ KCL 1,000 ML IV SCH ×2 (07:45→17:06)
[2020-02-15] MEDS: Thiamine 100 MG TAB PO SCH (09:59)
[2020-02-15] MEDS: Folic Acid 1 MG TAB PO SCH (09:59)
[2020-02-15] MEDS: Aspirin 81 mg Enteric Coated Tablet PO SCH (09:59)
[2020-02-15 11:32] LABS: Cardiac Risk 2.3 (Less than 4.5)
[2020-02-15] MEDS ORDERED: hydrALAZINE 20 MG/ML VIAL SLOW IVP PRN (13:59)
--- NOTE | 2020-02-15 14:07 | PDOC.HOSPP ---
- Subjective Encounter Date: 02/15/20 Encounter Time: 10:40 Subjective: pt still somnolent during my round, repeating my name when i said, but not answering any specific qs. home meds updated. hx of seizure in the past. - Objective Vital Signs & Weight: Vital Signs (12 hours) Temp Pulse Resp BP Pulse Ox 02/15/20 11:45 98.3 F 79 12 158/95 H 96 02/15/20 07:45 99.4 F 73 16 137/84 95 02/15/20 03:08 98.0 F 77 20 149/92 H 97 Weight Weight 91 lb 11.2 oz I&O: 02/14/20 02/15/20 02/16/20 06:59 06:59 06:59 Intake Total 350 Balance 350 Result Diagrams: 02/15/20 04:13 02/15/20 04:13 Hospitalist ROS - Medication Medications: Active Medications Generic Name Dose Route Start Last Admin Trade Name Freq PRN Reason Stop Dose Admin Aspirin 81 mg 02/15/20 09:00 02/15/20 09:59 Ecotrin PO Not Given DAILY [facility] Folic Acid 1 mg 02/15/20 09:00 02/15/20 09:59 Folvite PO Not Given DAILY [facility] Ceftriaxone Sodium 1 gm/ 100 mls @ 200 mls/hr 02/15/20 02:00 02/15/20 02:44 Sodium Chloride IVPB 100 mls 0200 [facility] Administration Potassium Chloride/Sodium Chloride 1,000 mls @ 100 mls/hr 02/14/20 21:30 07:45 Ns 0.9% W/ 40 Meq Kcl IV 1,000 mls .Q10H [facility] Administration Sertraline HCl 50 mg 02/15/20 09:00 02/15/20 09:59 Zoloft PO Not Given DAILY [facility] Thiamine HCl 100 mg 02/15/20 09:00 02/15/20 09:59 Thiamine PO Not Given DAILY [facility] - Exam General Appearance: ill appearing General - other findings: AO1 Eye: PERRL ENT: normocephalic atraumatic Neck: supple Heart: RRR, normal peripheral pulses Respiratory: CTAB, normal chest expansion Gastrointestinal: soft, normal bowel sounds Neurological: no focal deficits Psychiatric: somnolent, lethargic Hosp A/P - Plan Sepsis with UTI E.coli UTI GPC bacteremia - one set - ?contaminant -will repeat tomorrow on CTX Hx of seizure 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 just simple metab encephlaopathy [w./ hypotnesion, sepsis and UTI] vs.. alcohol excess [mom says pt drinks very little daily?] --starting low dose keppra, EEG, neuro consult Symptomatic anemia Anemia fo chr disease - got transfusion, 9.6 today pancytopenia - onc. has seen her in the past -presumed d/t alco use Pancreatic cyst vs.. mass Acute pancreatitis --received few liters of fluid - BP going up and pt stated PO intake - will stop the IVF --she supposed to fw w.. cancer clinic on above -do we need MRI to follow through or this is a benign case of pseudo cyst? --requested GI input A/CKD3 -close monitorning, no nephrotoxics, renally dose the meds.
--- NOTE | 2020-02-15 17:53 | CON ---
NEUROLOGY CONSULTATION DATE OF CONSULTATION: 02/15/2020 REASON FOR CONSULTATION: Altered mental status. HISTORY OF PRESENT ILLNESS: Ms. Dena Oconnell is a 69-year-old female with history significant for chronic alcohol abuse, chronic anemia, and pancytopenia, presented with altered mental status and generalized weakness. She was brought to the emergency room because she was confused and disoriented. In the emergency room , she was found to have UTI and was hypotensive with systolic in 70s, so she was admitted for further workup for sepsis. There is a concern about seizures because of continued altered mental status and she is on Keppra at home foe seizure disorder , so Neurology was consulted for further evaluation. Patient clinically much improved REVIEW OF SYSTEMS: All 14 systems were reviewed and were negative except the pertinent positives and negatives mentioned in the HPI. ALLERGIES: GADOLINIUM-CONTAINING CONTRAST MEDIA, OTHERWISE NO KNOWN DRUG ALLERGIES. PAST MEDICAL HISTORY: Chronic alcohol abuse, hypertension, depression, history of pancreatic mass, and pancytopenia. PAST SURGICAL HISTORY: No significant past surgical history. SOCIAL HISTORY: The patient smokes half a pack a day. She also has history of alcohol abuse. FAMILY HISTORY: Mother had arthritis and gastroesophageal reflux disease. Father of throat cancer at age of 60. - Objective Vital Signs & Weight: Vital Signs (12 hours) Temp Pulse Resp BP Pulse Ox 02/15/20 11:45 98.3 F 79 12 158/95 H 96 02/15/20 07:45 99.4 F 73 16 137/84 95 02/15/20 03:08 98.0 F 77 20 149/92 H 97 Weight Weight 91 lb 11.2 oz I&O: 02/14/20 02/15/20 02/16/20 06:59 06:59 06:59 Intake Total 350 Balance 350 Active Medications Generic Name Dose Route Start Last Admin Trade Name Freq PRN Reason Stop Dose Admin Aspirin 81 mg 02/15/20 09:00 02/15/20 09:59 Ecotrin PO Not Given DAILY [facility] Folic Acid 1 mg 02/15/20 09:00 02/15/20 09:59 Folvite PO Not Given DAILY [facility] Ceftriaxone Sodium 1 gm/ 100 mls @ 200 mls/hr 02/15/20 02:00 02/15/20 02:44 Sodium Chloride IVPB 100 mls 0200 ESTHER Administration Potassium Chloride/Sodium Chloride 1,000 mls @ 100 mls/hr 02/14/20 21:30 07:45 Ns 0.9% W/ 40 Meq Kcl IV 1,000 mls .Q10H [facility] Administration Sertraline HCl 50 mg 02/15/20 09:00 02/15/20 09:59 Zoloft PO Not Given DAILY [facility] Thiamine HCl 100 mg 02/15/20 09:00 02/15/20 09:59 Thiamine PO Not Given DAILY [facility] - Exam General Appearance: Alert, awake, female, sitting in bed, eating lunch. Eye: PERRL ENT: normocephalic atraumatic Neck: supple Heart: RRR, normal peripheral pulses Respiratory: CTAB, normal chest expansion Gastrointestinal: soft, normal bowel sounds Neurological: Mental status; the patient is alert and oriented to person and place. She thinks the year is 1969. Speech is clear. Cranial nerves II through XII intact. Motor, muscle tone is normal. Bulk is decreased. Strength 4+/5 bilaterally. Reflexes symmetric bilaterally. Sensory, withdraws to pinprick bilaterally. Cerebellar, finger-nose testing intact. Gait not tested because of the patient's safety reasons. DATA REVIEWED: I reviewed the chest x-ray, which was negative for acute process. EKG showed normal sinus rhythm. Urinalysis showed significant leukocyte esterase and bacteremia. ASSESSMENT AND PLAN: Ms. Dena Oconnell is a 69-year-old female with history of alcohol abuse and pancytopenia, admitted because of altered mental status, which is now improved. Altered mental status seems to be multifactorial secondary to infectious versus metabolic etiology. Intracranial process seems less likely, but cannot be completely ruled out. 1. Recommend head CT to rule out acute intracranial process. 2. Recommend EEG to rule out underlying cortical irritability. 3. Neuro check q.4 hours. 4. Ativan 2 mg IV for seizure greater than 3 minutes. 5. Continue Keppra 500 mg po bid 6. Continue home medications. 7.Continue medical management per primary team, 8. PT/OT. Further recommendations depend on the results of the testing. Plan discussed in detail with the patient and the primary attending, Dr. Suarez. Thank you for the consult. Job ID: [id number] MTDD
--- NOTE | 2020-02-15 19:35 | CON ---
DATE OF CONSULTATION: 02/15/2020 CHIEF COMPLAINT: Weakness and decreased mental status. HISTORY OF PRESENT ILLNESS: Ms. Oconnell is a 69-year-old woman, who was admitted through the emergency room after she presented with weakness and disorientation. She was found to have anemia and received transfusion. GI was consulted. Follow up on previous abnormal imaging findings of her pancreas. Also regarding anemia. The patient currently is in the room by herself. She can tell me her name and is unable to tell me what building we are in, but is able to state that she is in [place]. She is unable to state what year it is. She is unable to state why she is here or if she has had any specific problems lately. She has had no nausea or vomiting or diarrhea or constipation or blood in the stool reported. She presented with a hemoglobin of 4.2, however, her hemoglobin has improved to 9.6 after only 2 units of transfusion. PAST MEDICAL HISTORY: Pancytopenia, which has been attributed to her chronic alcohol abuse, hypertension, depression. She had a pancreatic lesion noted by CT scan last May. She had a followup endoscopic ultrasound that showed only benign findings. Followup CT scan of the pancreas on 11/27/2019, just showed a 13 mm cyst consistent with possible pseudocyst. No neoplastic lesion was evident. PAST SURGICAL HISTORY: Hysterectomy, tubal ligation, hip replacement, endoscopic ultrasound. FAMILY HISTORY: Negative for GI malignancy. SOCIAL HISTORY: She apparently drinks alcohol daily and smokes daily. No drugs. ALLERGIES: GADOLINIUM CONTRAST WITH A REPORTED REACTION OF EMESIS. MEDICATIONS: Medications as an outpatient before admission; 1. Aspirin. 2. Carvedilol. 3. Folic acid. 4. Lisinopril. 5. Pantoprazole. 6. Sertraline. 7. Sodium bicarbonate. 8. Levetiracetam. Inpatient medications include; 1. Thiamine. 2. Pantoprazole. 3. Lisinopril. 4. Levetiracetam. 5. Folic acid. 6. Ceftriaxone. 7. Carvedilol. 8. Aspirin. REVIEW OF SYSTEMS: Negative x10 systems reviewed except as stated in the history of present illness. This is limited by the patient's limited mental status. PHYSICAL EXAMINATION: VITAL SIGNS: Temperature is 98.3, pulse 79, blood pressure 137/84. GENERAL: She is in no acute distress. She is oriented to her name and to the city, but not to the building or year and is unable to contribute to her history meaningfully. HEENT: Her eyes have no scleral icterus. Oropharynx is clear without lesions. No cervical or supraclavicular lymphadenopathy. She is eating her solid diet tray, which she is tolerating and is feeding herself. LUNGS: Clear to auscultation bilaterally. HEART: Regular rate and rhythm without murmur. ABDOMEN: Soft, nontender, and nondistended. Bowel sounds are present. EXTREMITIES: No lower extremity edema. LABORATORY DATA: Hemoglobin on presentation to the ER yesterday was 4.2, however, after 2 units transfusion. Her hemoglobin last night was 8.7 and today it is 9.6. INR 1.0. Creatinine 2.64, which is around her baseline. Bilirubin 0.3, AST 17, ALT 7, alkaline phosphatase 115, albumin 2.9, lipase 403 yesterday with upper limit normal of 78. IMPRESSION: 1. Small pancreatic pseudocyst by CT pancreas protocol back in November. This requires no further intervention at this time. She had endoscopic ultrasound in May of 2019 for evaluation of a questionable pancreatic head mass. This showed only benign findings. Followup CT pancreas protocol did show a small pseudocyst measuring around 13 mm. 2. Anemia. She has had no overt GI bleeding. Her hemoglobin is 9.6 after only 2 units transfusion, indicating that the low level that she presented with was likely a diluted specimen. She has had chronic anemia, has been evaluated by Hematology and felt to most likely have bone marrow suppression from alcohol. She has pancytopenia associated with that. Again, no further specific GI intervention is indicated. She last had an endoscopy in May 2019, which was normal. She had EGD and colonoscopy for severe anemia back in September of 2015, which was also normal. 3. Possible mild flare of chronic pancreatitis. Her lipase is greater than 3 times upper limit of normal. She is tolerating a solid diet well now, that has had some vague upper abdominal discomfort. We will recheck her lipase tomorrow morning. 4. Alcohol abuse. 5. Altered mental status. I am not sure this is far off her baseline. RECOMMENDATIONS: 1. Recheck her lipase tomorrow. 2. Continue with her current regular diet. 3. I will sign off for now. Please call if GI can be of assistance. Job ID: [id number]
[2020-02-15] MEDS ORDERED: levETIRAcetam 500 MG TAB PO SCH (21:00)
[2020-02-15] MEDS ORDERED: Carvedilol 25 MG TAB PO SCH (21:00)
[2020-02-15] MEDS: levETIRAcetam 500 MG TAB PO SCH (21:04)
[2020-02-15] MEDS: Carvedilol 25 MG TAB PO SCH (21:04)
[2020-02-16] MEDS: cefTRIAXone\\ROCEPHIN 1 GM in Sodium Chloride 0.9% 100 ML IVPB SCH (02:52)
[2020-02-16] MEDS: Lisinopril 2.5 MG TAB PO SCH (08:34)
[2020-02-16] MEDS: Thiamine 100 MG TAB PO SCH (08:34)
[2020-02-16] MEDS: Sodium Bicarbonate Tab 325 MG TAB PO SCH (08:34)
[2020-02-16] MEDS: Carvedilol 25 MG TAB PO SCH ×2 (08:34→21:06)
[2020-02-16] MEDS: Folic Acid 1 MG TAB PO SCH (08:34)
[2020-02-16] MEDS: Aspirin 81 mg Enteric Coated Tablet PO SCH (08:34)
[2020-02-16] MEDS: levETIRAcetam 500 MG TAB PO SCH ×2 (08:34→21:07)
[2020-02-16] MEDS: NS 0.9% w/ 40 MEQ KCL 1,000 ML IV SCH (08:35)
[2020-02-16] MEDS: Enoxaparin Sodium 40 MG/0.4 ML SYRINGE SC SCH (08:48)
[2020-02-16] MEDS ORDERED: Sodium Chloride 0.9% 1,000 ML IV SCH (09:45)
--- NOTE | 2020-02-16 13:38 | PDOC.HOSPP ---
- Subjective Encounter Date: 02/16/20 Encounter Time: 09:40 Subjective: she is resting, no acute events o/n; EEG pending, will GET Ct head for complete work, [mentation back to baseline] , palliative consult placed, GI c/s note reviewed. - Objective Vital Signs & Weight: Vital Signs (12 hours) Temp Pulse Pulse Pulse Resp BP BP 02/16/20 12:25 97.8 F 76 14 02/16/20 09:52 77 73 117/74 128/83 02/16/20 08:00 99.7 F H 82 17 02/16/20 04:00 97.6 F 77 16 BP Pulse Ox 02/16/20 12:25 131/89 96 02/16/20 09:52 02/16/20 08:00 126/78 98 02/16/20 04:00 129/86 99 Weight Weight 91 lb 11.2 oz I&O: 02/15/20 02/16/20 02/17/20 06:59 06:59 06:59 Intake Total 350 100 Balance 350 100 Result Diagrams: 02/15/20 04:13 02/15/20 04:13 Hospitalist ROS - Medication Medications: Active Medications Generic Name Dose Route Start Last Admin Trade Name Freq PRN Reason Stop Dose Admin Aspirin 81 mg 02/15/20 09:00 02/16/20 08:34 Ecotrin PO 81 mg DAILY ESTHER Administration Carvedilol 25 mg 02/15/20 21:00 02/16/20 08:34 Coreg PO 25 mg BID ESTHER Administration Enoxaparin Sodium 40 mg 02/16/20 09:00 02/16/20 08:48 Lovenox SC Not Given DAILY ESTHER Folic Acid 1 mg 02/15/20 09:00 02/16/20 08:34 Folvite PO 1 mg DAILY ESTHER Administration Ceftriaxone Sodium 1 gm/ 100 mls @ 200 mls/hr 02/15/20 02:00 02/16/20 02:52 Sodium Chloride IVPB 100 mls 0200 ESTHER Administration Sodium Chloride 1,000 mls @ 100 mls/hr 02/16/20 09:45 02/16/20 10:41 Normal Saline 0.9% IV 02/16/20 19:44 1,000 mls .Q10H ESTHER Administration Levetiracetam 500 mg 02/15/20 21:00 02/16/20 08:34 Keppra PO 500 mg BID ESTHER Administration Lisinopril 2.5 mg 02/16/20 09:00 02/16/20 08:34 Zestril PO 2.5 mg DAILY ESTHER Administration Pantoprazole Sodium 40 mg 02/16/20 09:00 02/16/20 08:35 Protonix PO 40 mg DAILY ESTHER Administration Sertraline HCl 50 mg 02/16/20 09:00 02/16/20 08:35 Zoloft PO 50 mg DAILY ESTHER Administration Sodium Bicarbonate 650 mg 02/16/20 09:00 02/16/20 08:34 Bicarbonate, Sodium PO 650 mg DAILY ESTHER Administration Sodium Chloride 10 ml 02/16/20 09:00 02/16/20 08:35 Flush - Normal Saline IVF 10 ml Q12HR ESTHER Administration Thiamine HCl 100 mg 02/15/20 09:00 02/16/20 08:34 Thiamine PO 100 mg DAILY ESTHER Administration - Exam General Appearance: ill appearing Eye: PERRL ENT: normocephalic atraumatic Neck: supple Heart: RRR Respiratory: CTAB Gastrointestinal: soft, normal bowel sounds Neurological: no focal deficits Psychiatric: A&O x 3 Hosp A/P - Plan Sepsis with UTI E.coli UTI GPC bacteremia - one set - ?contaminant -will repeat tomorrow on CTX Hx of seizure 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 just simple metab encephlaopathy [w./ hypotnesion, sepsis and UTI] vs.. alcohol excess [mom says pt drinks very little daily?] --starting low dose keppra, EEG, neuro consult Symptomatic anemia Anemia of chr disease - got transfusion, 9.6 today pancytopenia - onc. has seen her in the past -presumed d/t alco use Pancreatic cyst vs.. mass--------------> per EUS in 06/07 it is panc.. pseudocyst ---------> no further workup. Acute pancreatitis --received few liters of fluid - BP going up and pt started PO intake - will stop the IVF -appreciate the input from GI A/CKD3 -close monitorning, no nephrotoxics, renally dose the meds. EEG pending, will GET Ct head for complete work per neuro recommendation. - palliative consult placed, --GI c/s note reviewed. Protein calorie malnut -fw on prealbumin [albim 2.9 -ntr c/s placed. Deilitation FAilure to thrive w.. above comorbidities --PT/OT c/s placed. --pallative will be on board. Full code.
--- NOTE | 2020-02-16 14:00 | PDOC.HOSPP ---
- Subjective Encounter Date: 02/16/20 Subjective: NEUROLOGY PROGRESS NOTE Patient is awake, alert and following commands appropriately. No acute issues overnight. - Objective Vital Signs & Weight: Vital Signs (12 hours) Temp Pulse Pulse Pulse Resp BP BP 02/16/20 12:25 97.8 F 76 14 02/16/20 09:52 77 73 117/74 128/83 02/16/20 08:00 99.7 F H 82 17 02/16/20 04:00 97.6 F 77 16 BP Pulse Ox 02/16/20 12:25 131/89 96 02/16/20 09:52 02/16/20 08:00 126/78 98 02/16/20 04:00 129/86 99 Weight Weight 91 lb 11.2 oz I&O: 02/15/20 02/16/20 02/17/20 06:59 06:59 06:59 Intake Total 350 100 Balance 350 100 Result Diagrams: 02/15/20 04:13 02/15/20 04:13 Radiology Reviewed by me: Yes EKG Reviewed by me: Yes Hospitalist ROS - Review of Systems Constitutional: denies: fever, chills, sweats, weakness, malaise, other Eyes: denies: pain, vision change, conjunctivae inflammation, eyelid inflammation, redness, other ENT: denies: ear pain, ear discharge, nose pain, nose discharge, nose congestion , mouth pain, mouth swelling, throat pain, throat swelling, other Cardiovascular: denies: chest pain, palpitations, orthopnea, paroxysmal noc. dyspnea, edema, light headedness, other Gastrointestinal: denies: nausea, vomiting, abdominal pain, diarrhea, constipation, melena, hematochezia, other Genitourinary: denies: dysuria, frequency, incontinence, hematuria, retention, other Musculoskeletal: denies: neck pain, shoulder pain, arm pain, back pain, hand pain, leg pain, foot pain, other Skin: denies: rash, lesions, santi, bruising, other Neurological: reports: confusion - Medication Medications: Active Medications Generic Name Dose Route Start Last Admin Trade Name Freq PRN Reason Stop Dose Admin Aspirin 81 mg 02/15/20 09:00 02/16/20 08:34 Ecotrin PO 81 mg DAILY ESTHER Administration Carvedilol 25 mg 02/15/20 21:00 02/16/20 08:34 Coreg PO 25 mg BID ESTHER Administration Enoxaparin Sodium 40 mg 02/16/20 09:00 02/16/20 08:48 Lovenox SC Not Given DAILY ESTHER Folic Acid 1 mg 02/15/20 09:00 02/16/20 08:34 Folvite PO 1 mg DAILY ESTHER Administration Ceftriaxone Sodium 1 gm/ 100 mls @ 200 mls/hr 02/15/20 02:00 02/16/20 02:52 Sodium Chloride IVPB 100 mls 0200 ESTHER Administration Sodium Chloride 1,000 mls @ 100 mls/hr 02/16/20 09:45 02/16/20 10:41 Normal Saline 0.9% IV 02/16/20 19:44 1,000 mls .Q10H ESTHER Administration Levetiracetam 500 mg 02/15/20 21:00 02/16/20 08:34 Keppra PO 500 mg BID ESTHER Administration Lisinopril 2.5 mg 02/16/20 09:00 02/16/20 08:34 Zestril PO 2.5 mg DAILY ESTHER Administration Pantoprazole Sodium 40 mg 02/16/20 09:00 02/16/20 08:35 Protonix PO 40 mg DAILY ESTHER Administration Sertraline HCl 50 mg 02/16/20 09:00 02/16/20 08:35 Zoloft PO 50 mg DAILY ESTHER Administration Sodium Bicarbonate 650 mg 02/16/20 09:00 02/16/20 08:34 Bicarbonate, Sodium PO 650 mg DAILY ESTHER Administration Sodium Chloride 10 ml 02/16/20 09:00 02/16/20 08:35 Flush - Normal Saline IVF 10 ml Q12HR ESTHER Administration Thiamine HCl 100 mg 02/15/20 09:00 02/16/20 08:34 Thiamine PO 100 mg DAILY ESTHER Administration - Exam General Appearance: awake alert Eye: PERRL ENT: normocephalic atraumatic Neck: supple Heart: RRR Respiratory: CTAB Gastrointestinal: soft Extremities: no cyanosis Skin: normal turgor Neurological: cranial nerve grossly intact, normal sensation to touch, no weakness, no focal deficits, no new deficit Musculoskeletal: normal tone, normal strength, no muscle wasting Psychiatric: normal affect, normal behavior, oriented to person, oriented to place Hosp A/P (1) AMS (altered mental status) Code(s): R41.82 - ALTERED MENTAL STATUS, UNSPECIFIED Status: Acute (2) Acute on chronic anemia Code(s): D64.9 - ANEMIA, UNSPECIFIED Status: Acute (3) Acute worsening of stage 3 chronic kidney disease Code(s): N18.3 - CHRONIC KIDNEY DISEASE, STAGE 3 (MODERATE) Status: Acute (4) CKD (chronic kidney disease) Code(s): N18.9 - CHRONIC KIDNEY DISEASE, UNSPECIFIED Status: Acute - Plan PT/OT, speech therapy 69 year old consulted for altered mental status which is now resolved. No documented seizures since admission. EEG reviewed which was negative for seizure activity. Head CT pending. Telemetry. Continue home dose of Keppra. Observe seizure precautions. Neurochecks every 4 hours. Continue home medications. Continue pancreatic mass workup per GI Comtinue medical management per primary team. Patient counseled about tobacco and alcohol abuse. Plan discussed with the patient .
[2020-02-16 14:33] LABS: Anion Gap 10 mmol/L (10-20); BUN (Urea Nitrogen) 44 mg/dL (9.8-20.1); Calc. Creatinine Clearance 18 mL/min (70-130); Calcium 7.9 mg/dL (7.8-10.44); Carbon Dioxide 18 mmol/L (23-31); Chloride 120 mmol/L (98-107); Estimated GFR-MDRD 31; Glucose 89 mg/dL (80-115); Lipase 239 U/L (8-78); Potassium 5.3 mmol/L (3.5-5.1); Sodium 143 mmol/L (136-145)
--- NOTE | 2020-02-16 15:27 | CT ---
CT HEAD WITHOUT IV CONTRAST COMPARISON: 05/27/2019 HISTORY: Altered mental status, weakness. TECHNIQUE: Axial CT imaging at 5 mm intervals from vertex through skull base without contrast FINDINGS: There is decreased attenuation in the periventricular white matter which is nonspecific but likely re flective of chronic small vessel ischemic changes. There is mild cerebral and cerebellar volume loss. The ventricular system is normal in size, shape, a nd position for the degree of sulcal atrophy. There is no evidence of an acute infarction, hemorrhage, mass effect, or midline shift. There is a stable extra-axial mass along the inner table of the squamosal portion of the left tempora l bone likely attributable to a meningioma. There is also a stable prominent calcification in the occipital horn left lateral ventricle. These findings are also overall stable when compared to prior study in 2016; although, the extra-axial mass is slightly larger in size. Visualized paranasal sinuses are clear. Osseous structures appear intact. IMPRESSION: 1. No acute intracranial abnormality demonstrated. 2. Chronic small vessel ischemic changes and cerebral volume loss. 3. Stable extra-axial mass along the inner table of the squamosal portion left temporal bone likely r elated to a meningioma.
--- NOTE | 2020-02-16 17:47 | PDOC.PALPN ---
Palliative Progress Note - Subjective Awake, slurred speech, but oriented. Pronounced weakness. - Objective Vital Signs: Vital Signs - Most Recent Temp Pulse Resp BP Pulse Ox 98.1 F 85 16 143/98 H 97 02/16/20 14:50 02/16/20 14:50 02/16/20 14:50 02/16/20 14:50 02/16/20 14:50 - Physical Exam Constitutional: cachectic, emaciated, ill appearing HEENT: moist MMs Respiratory: no wheezing, unlabored breathing Cardiovascular: RRR Gastrointestinal: soft, positive bowel sounds Genitourinary: incontinent Musculoskeletal: no clubbing, muscle wasting Neurology: moves all 4 limbs Skin: cap refill <2 seconds Psychiatric: A&O x 3, normal affect - Assessment (1) Acute on chronic anemia Code(s): D64.9 - ANEMIA, UNSPECIFIED Current Visit: No Status: Acute (2) Acute worsening of stage 3 chronic kidney disease Code(s): N18.3 - CHRONIC KIDNEY DISEASE, STAGE 3 (MODERATE) Current Visit: No Status: Acute (3) Palliative care encounter Code(s): Z51.5 - ENCOUNTER FOR PALLIATIVE CARE Current Visit: No Status: Acute (4) Alcohol abuse Code(s): F10.10 - ALCOHOL ABUSE, UNCOMPLICATED Current Visit: No Status: Chronic (5) Pancreatic mass Current Visit: No Status: Chronic (6) Protein-calorie malnutrition, severe Code(s): E43 - UNSPECIFIED SEVERE PROTEIN-CALORIE MALNUTRITION Current Visit: No Status: Chronic - Plan Plan: Revisited Palliative Crae with patient. Discussed multiple morbidities, and impact of alcohol consumption. Attempted to communicate with Patient mother, will follow up 02/16 Will revisit goal of care & treatment options that are parallel to multiple morbidities 02/16 Patient has a history of non compliance, previous placement at [facility] in [place]. Please also refer to Palliative Care RN notes in note section [30] minutes spent on this encounter with >50% of the time in counseling and coordination of care. - ROS Constitutional: weakness Eyes: other ENT: alteration in dentition Respiratory: dry cough, shortness of breath with extertion Cardiology: other (negative for chest pain) Musculoskeletal: arthritis/arthralgias Neurological: weakness Psychological: memory changes
[2020-02-17] MEDS: cefTRIAXone\\ROCEPHIN 1 GM in Sodium Chloride 0.9% 100 ML IVPB SCH (02:14)
[2020-02-17] MEDS: Aspirin 81 mg Enteric Coated Tablet PO SCH (07:46)
[2020-02-17] MEDS: Enoxaparin Sodium 40 MG/0.4 ML SYRINGE SC SCH (07:46)
[2020-02-17] MEDS: Lisinopril 2.5 MG TAB PO SCH (07:47)
[2020-02-17] MEDS: Carvedilol 25 MG TAB PO SCH ×2 (07:47→20:36)
[2020-02-17] MEDS: levETIRAcetam 500 MG TAB PO SCH (07:47)
[2020-02-17] MEDS: Sodium Bicarbonate Tab 325 MG TAB PO SCH (07:47)
[2020-02-17] MEDS: Thiamine 100 MG TAB PO SCH (07:48)
[2020-02-17] MEDS: Folic Acid 1 MG TAB PO SCH (07:48)
--- NOTE | 2020-02-17 09:13 | EEG ---
DATE OF SERVICE: 02/16/2020 ATTENDING PHYSICIAN: Natividad An MD. This EEG was performed using 24-channel [employer] video EEG machine with 24-disk electrodes. This was an extended 2-hour 5-minute of inpatient video EEG recording. Digital analysis of the EEG was done for spike and seizure detection, which revealed no abnormalities. BACKGROUND: The posterior background rhythm was not observed. HYPERVENTILATION: Not performed. PHOTIC STIMULATION: Not performed. SLEEP: Drowsiness and sleep are observed. EEG DIAGNOSIS: 1. Intermittent irregular theta activity seen throughout the recording. 2. Absence of posterior background rhythm. CLINICAL INTERPRETATION: This EEG is consistent with moderate generalized nonspecific cerebral dysfunction. No ictal or interictal epileptiform abnormality seen during the recording. Job ID: [id number]
[2020-02-17] MEDS ORDERED: Enoxaparin Sodium 30 MG/0.3 ML SYRINGE SC SCH (10:45)
--- NOTE | 2020-02-17 12:08 | PDOC.HOSPP ---
- Subjective Encounter Date: 02/17/20 Subjective: NEUROLOGY PROGRESS NOTE Patient is awake, alert and following commands appropriately. No acute issues overnight. EEG and Head CT results discussed with the patient. - Objective Vital Signs & Weight: Vital Signs (12 hours) Temp Pulse Resp BP Pulse Ox 02/17/20 11:39 98.6 F 84 13 126/91 H 95 02/17/20 07:42 98.6 F 81 12 152/91 H 96 02/17/20 04:00 98.2 F 81 18 152/97 H 95 Weight Admit Weight 105 lb 13.15 oz Weight 91 lb 11.2 oz I&O: 02/16/20 02/17/20 02/18/20 06:59 06:59 06:59 Intake Total 100 200 Output Total 250 Balance 100 -50 Result Diagrams: 02/15/20 04:13 02/16/20 14:05 Radiology Reviewed by me: Yes EKG Reviewed by me: Yes Hospitalist ROS - Review of Systems Constitutional: denies: fever, chills, sweats, weakness, malaise, other Eyes: denies: pain, vision change, conjunctivae inflammation, eyelid inflammation, redness, other ENT: denies: ear pain, ear discharge, nose pain, nose discharge, nose congestion , mouth pain, mouth swelling, throat pain, throat swelling, other Respiratory: denies: cough, dry, shortness of breath, hemoptysis, SOB with excertion, pleuritic pain, sputum, wheezing, other Cardiovascular: denies: chest pain, palpitations, orthopnea, paroxysmal noc. dyspnea, edema, light headedness, other Gastrointestinal: denies: nausea, vomiting, abdominal pain, diarrhea, constipation, melena, hematochezia, other Genitourinary: denies: dysuria, frequency, incontinence, hematuria, retention, other Musculoskeletal: denies: neck pain, shoulder pain, arm pain, back pain, hand pain, leg pain, foot pain, other Skin: denies: rash, lesions, santi, bruising, other Neurological: reports: confusion - Medication Medications: Active Medications Generic Name Dose Route Start Last Admin Trade Name Freq PRN Reason Stop Dose Admin Aspirin 81 mg 02/15/20 09:00 02/17/20 07:46 Ecotrin PO 81 mg DAILY ESTHER Administration Carvedilol 25 mg 02/15/20 21:00 02/17/20 07:47 Coreg PO 25 mg BID ESTHER Administration Enoxaparin Sodium 30 mg 02/17/20 10:45 02/17/20 11:46 Lovenox SC 02/17/20 12:45 30 mg NOW ESTHER Administration Folic Acid 1 mg 02/15/20 09:00 02/17/20 07:48 Folvite PO 1 mg DAILY ESTHER Administration Levetiracetam 500 mg 02/15/20 21:00 02/17/20 07:47 Keppra PO 500 mg BID ESTHER Administration Lisinopril 2.5 mg 02/16/20 09:00 02/17/20 07:47 Zestril PO 2.5 mg DAILY ESTHER Administration Pantoprazole Sodium 40 mg 02/16/20 09:00 02/17/20 07:48 Protonix PO 40 mg DAILY ESTHER Administration Sertraline HCl 50 mg 02/16/20 09:00 02/17/20 07:47 Zoloft PO 50 mg DAILY ESTHER Administration Sodium Bicarbonate 650 mg 02/16/20 09:00 02/17/20 07:47 Bicarbonate, Sodium PO 650 mg DAILY ESTHER Administration Sodium Chloride 10 ml 02/16/20 09:00 02/17/20 07:48 Flush - Normal Saline IVF 10 ml Q12HR ESTHER Administration Thiamine HCl 100 mg 02/15/20 09:00 02/17/20 07:48 Thiamine PO 100 mg DAILY ESTHER Administration - Exam General Appearance: awake alert Eye: PERRL ENT: normocephalic atraumatic Neck: supple Heart: RRR Respiratory: CTAB Gastrointestinal: soft Extremities: no cyanosis Skin: normal turgor Neurological: cranial nerve grossly intact, normal sensation to touch, no weakness, no focal deficits, no new deficit Musculoskeletal: diffuse muscle atrophy Psychiatric: normal affect, normal behavior, oriented to person, oriented to place Hosp A/P (1) AMS (altered mental status) Code(s): R41.82 - ALTERED MENTAL STATUS, UNSPECIFIED Status: Acute (2) Acute on chronic anemia Code(s): D64.9 - ANEMIA, UNSPECIFIED Status: Acute (3) Acute worsening of stage 3 chronic kidney disease Code(s): N18.3 - CHRONIC KIDNEY DISEASE, STAGE 3 (MODERATE) Status: Acute (4) CKD (chronic kidney disease) Code(s): N18.9 - CHRONIC KIDNEY DISEASE, UNSPECIFIED Status: Acute - Plan PT/OT, out of bed/ambulate 69 year old consulted for altered mental status which is now resolved. No documented seizures since admission. No focal deficits. Head CT reviewed which was negative for acute intracranial pathology. EEG reviewed which was negative for seizure activity. Telemetry. Continue home dose of Keppra. Observe seizure precautions. Neurochecks every 4 hours. Continue home medications. Continue pancreatic mass workup per GI Comtinue medical management per primary team. Patient counseled about tobacco and alcohol abuse. Plan discussed with the patient and the nursing staff. No further recommendations from neurology perspective. .
--- NOTE | 2020-02-17 13:59 | PDOC.HOSPP ---
- Subjective Encounter Date: 02/17/20 Encounter Time: 10:10 Subjective: pt praveen well, says not enough protein in kirit breakfast. on ensure. talk to neuro. will dc lavinia as she may have alc induced seizure in the apst and given the risk for somnolence w.. acute comorbdiites and possibly palliative approach, weaning off some of the meds. and o/n EEG. - Objective Vital Signs & Weight: Vital Signs (12 hours) Temp Pulse Resp BP Pulse Ox 02/17/20 11:39 98.6 F 84 13 126/91 H 95 02/17/20 07:42 98.6 F 81 12 152/91 H 96 02/17/20 04:00 98.2 F 81 18 152/97 H 95 Weight Admit Weight 105 lb 13.15 oz Weight 91 lb 11.2 oz I&O: 02/16/20 02/17/20 02/18/20 06:59 06:59 06:59 Intake Total 100 200 Output Total 250 Balance 100 -50 Result Diagrams: 02/15/20 04:13 02/16/20 14:05 Hospitalist ROS - Medication Medications: Active Medications Generic Name Dose Route Start Last Admin Trade Name Freq PRN Reason Stop Dose Admin Aspirin 81 mg 02/15/20 09:00 02/17/20 07:46 Ecotrin PO 81 mg DAILY ESTHER Administration Carvedilol 25 mg 02/15/20 21:00 02/17/20 07:47 Coreg PO 25 mg BID ESTHER Administration Folic Acid 1 mg 02/15/20 09:00 02/17/20 07:48 Folvite PO 1 mg DAILY ESTHER Administration Levetiracetam 500 mg 02/15/20 21:00 02/17/20 07:47 Keppra PO 500 mg BID ESTHER Administration Lisinopril 2.5 mg 02/16/20 09:00 02/17/20 07:47 Zestril PO 2.5 mg DAILY ESTHER Administration Pantoprazole Sodium 40 mg 02/16/20 09:00 02/17/20 07:48 Protonix PO 40 mg DAILY ESTHER Administration Sertraline HCl 50 mg 02/16/20 09:00 02/17/20 07:47 Zoloft PO 50 mg DAILY ESTHER Administration Sodium Bicarbonate 650 mg 02/16/20 09:00 02/17/20 07:47 Bicarbonate, Sodium PO 650 mg DAILY ESTHER Administration Sodium Chloride 10 ml 02/16/20 09:00 02/17/20 07:48 Flush - Normal Saline IVF 10 ml Q12HR ESTHER Administration Thiamine HCl 100 mg 02/15/20 09:00 02/17/20 07:48 Thiamine PO 100 mg DAILY ESTHER Administration - Exam General Appearance: ill appearing Eye: PERRL ENT: normocephalic atraumatic Neck: supple Heart: RRR Respiratory: CTAB, normal chest expansion Gastrointestinal: soft, normal bowel sounds Neurological: no focal deficits Hosp A/P - Plan Sepsis with UTI E.coli UTI GPC bacteremia - one set - ?contaminant -will repeat tomorrow on CTX Hx of seizure 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 just simple metab encephlaopathy [w./ hypotnesion, sepsis and UTI] vs.. alcohol excess [mom says pt drinks very little daily?] --starting low dose keppra, EEG, neuro consult Symptomatic anemia Anemia of chr disease - got transfusion, 9.6 today pancytopenia - onc. has seen her in the past -presumed d/t alco use Pancreatic cyst vs.. mass--------------> per EUS in 06/07 it is panc.. pseudocyst ---------> no further workup. Acute pancreatitis --received few liters of fluid - BP going up and pt started PO intake - will stop the IVF -appreciate the input from GI A/CKD3 -close monitorning, no nephrotoxics, renally dose the meds. EEG pending, will GET Ct head for complete work per neuro recommendation. - palliative consult placed, --GI c/s note reviewed. Protein calorie malnut -fw on prealbumin [albim 2.9 -ntr c/s placed. Deilitation FAilure to thrive w.. above comorbidities --PT/OT c/s placed. --pallative will be on board. Full code. talk to neuro. will dc keprra as she may have alc induced seizure in the apst and given the risk for somnolence w.. acute comorbdiites and possibly palliative approach, weaning off some of the meds. and o/n EEG.
[2020-02-17] MEDS: Cephalexin 250 MG/5 ML Oral Suspension PO SCH (20:36)
[2020-02-18] MEDS: Enoxaparin Sodium 30 MG/0.3 ML SYRINGE SC SCH (08:16)
[2020-02-18] MEDS: Thiamine 100 MG TAB PO SCH (09:35)
[2020-02-18] MEDS: Folic Acid 1 MG TAB PO SCH (09:35)
[2020-02-18] MEDS: Sodium Bicarbonate Tab 325 MG TAB PO SCH (09:35)
[2020-02-18] MEDS: Cephalexin 250 MG/5 ML Oral Suspension PO SCH ×2 (09:36→21:42)
[2020-02-18] MEDS: Lisinopril 2.5 MG TAB PO SCH (09:36)
[2020-02-18] MEDS: Aspirin 81 mg Enteric Coated Tablet PO SCH (09:36)
[2020-02-18] MEDS: Carvedilol 25 MG TAB PO SCH ×2 (09:37→21:42)
--- NOTE | 2020-02-18 09:43 | EEG ---
DATE OF SERVICE: 02/18/2020 This EEG was performed using 24-channel [employer] video digital EEG machine with 24-disk electrodes. This was an extended 17 hours 3 minutes of inpatient video EEG recording which was started on February 17, 2020, and ended on February 18, 2020. Digital analysis of the EEG was done for spike and seizure detection which revealed no abnormalities. BACKGROUND: The posterior background rhythm is 8 to 8.5 Hz. Minimal reactivity seen with eye opening and closure. HYPERVENTILATION: Not performed. PHOTIC STIMULATION: Not performed. SLEEP: Drowsiness and sleep are observed. EEG DIAGNOSES: 1. Occasional irregular theta activity seen throughout the recording. 2. Nonspecific posterior background rhythm. CLINICAL INTERPRETATION: This EEG is consistent with mild generalized nonspecific cerebral dysfunction. There is interval improvement since the prior study. No ictal or interictal epileptiform abnormalities seen during the recording. Job ID: [id number]
--- NOTE | 2020-02-18 11:47 | PDOC.HOSPP ---
- Subjective Encounter Date: 02/17/20 Subjective: NEUROLOGY PROGRESS NOTE Patient is awake, alert and following commands appropriately. No acute issues overnight. Overnight EEG results discussed with the patient. . - Objective Vital Signs & Weight: Vital Signs (12 hours) Temp Pulse Resp BP Pulse Ox 02/18/20 09:36 81 02/18/20 08:00 97.5 F L 75 18 158/100 H 96 02/18/20 04:00 98.3 F 81 18 163/99 H 97 02/18/20 00:00 164/96 H Weight Admit Weight 105 lb 13.15 oz Weight 91 lb 11.2 oz I&O: 02/17/20 02/18/20 02/19/20 06:59 06:59 06:59 Intake Total 200 960 Output Total 250 Balance -50 960 Result Diagrams: 02/15/20 04:13 02/16/20 14:05 Radiology Reviewed by me: Yes EKG Reviewed by me: Yes Hospitalist ROS - Review of Systems Constitutional: denies: fever, chills, sweats, weakness, malaise, other Eyes: denies: pain, vision change, conjunctivae inflammation, eyelid inflammation, redness, other ENT: denies: ear pain, ear discharge, nose pain, nose discharge, nose congestion , mouth pain, mouth swelling, throat pain, throat swelling, other Respiratory: denies: cough, dry, shortness of breath, hemoptysis, SOB with excertion, pleuritic pain, sputum, wheezing, other Cardiovascular: denies: chest pain, palpitations, orthopnea, paroxysmal noc. dyspnea, edema, light headedness, other Gastrointestinal: denies: nausea, vomiting, abdominal pain, diarrhea, constipation, melena, hematochezia, other Genitourinary: denies: dysuria, frequency, incontinence, hematuria, retention, other Musculoskeletal: denies: neck pain, shoulder pain, arm pain, back pain, hand pain, leg pain, foot pain, other Skin: denies: rash, lesions, santi, bruising, other Neurological: reports: confusion - Medication Medications: Active Medications Generic Name Dose Route Start Last Admin Trade Name Freq PRN Reason Stop Dose Admin Aspirin 81 mg 02/15/20 09:00 02/18/20 09:36 Ecotrin PO 81 mg DAILY ESTHER Administration Carvedilol 25 mg 02/15/20 21:00 02/18/20 09:37 Coreg PO 25 mg BID ESTHER Administration Cephalexin 250 mg 02/17/20 21:00 02/18/20 09:36 Keflex PO 250 mg BID ESTHER Administration Enoxaparin Sodium 30 mg 02/18/20 09:00 02/18/20 08:16 Lovenox SC Not Given 0900 [facility] Folic Acid 1 mg 02/15/20 09:00 02/18/20 09:35 Folvite PO 1 mg DAILY ESTHER Administration Lisinopril 2.5 mg 02/16/20 09:00 02/18/20 09:36 Zestril PO 2.5 mg DAILY ESTHER Administration Pantoprazole Sodium 40 mg 02/16/20 09:00 02/18/20 09:35 Protonix PO 40 mg DAILY ESTHER Administration Sertraline HCl 50 mg 02/16/20 09:00 02/18/20 09:37 Zoloft PO 50 mg DAILY ESTHER Administration Sodium Bicarbonate 650 mg 02/16/20 09:00 02/18/20 09:35 Bicarbonate, Sodium PO 650 mg DAILY ESTHER Administration Sodium Chloride 10 ml 02/16/20 09:00 02/18/20 09:40 Flush - Normal Saline IVF 10 ml Q12HR ESTHER Administration Thiamine HCl 100 mg 02/15/20 09:00 02/18/20 09:35 Thiamine PO 100 mg DAILY ESTHER Administration - Exam General Appearance: awake alert Eye: PERRL ENT: normocephalic atraumatic Neck: supple Heart: RRR Respiratory: CTAB Gastrointestinal: soft Extremities: no cyanosis Skin: normal turgor Neurological: cranial nerve grossly intact, normal sensation to touch, no weakness, no focal deficits, no new deficit Musculoskeletal: normal tone, normal strength, diffuse muscle atrophy Psychiatric: normal affect, normal behavior, oriented to person, oriented to place Hosp A/P (1) AMS (altered mental status) Code(s): R41.82 - ALTERED MENTAL STATUS, UNSPECIFIED Status: Acute (2) Acute on chronic anemia Code(s): D64.9 - ANEMIA, UNSPECIFIED Status: Acute (3) Acute worsening of stage 3 chronic kidney disease Code(s): N18.3 - CHRONIC KIDNEY DISEASE, STAGE 3 (MODERATE) Status: Acute (4) CKD (chronic kidney disease) Code(s): N18.9 - CHRONIC KIDNEY DISEASE, UNSPECIFIED Status: Acute - Plan PT/OT, speech therapy Consults: Palliative Care 69 year old consulted for altered mental status which is now resolved. No documented seizures since admission. No focal deficits on examination. Dr. Suarez discontinued Keppra yesterday since history not clear if she has alcohol withdrawal seizures or seizure disorder and patient having somnolence with keppra and patient is going for palliative care. . Overnight EEG performed under keppra withdrawal which did not show any underlying seizure activity.However, negative EEG does not completely rule out underlying seizure disorder but it is less likely based on the data Head CT reviewed which was negative for acute intracranial pathology. Observe seizure precautions. Neurochecks every 4 hours. Continue home medications. Continue pancreatic mass workup per GI Comtinue medical management per primary team. Patient counseled about tobacco and alcohol abuse. Plan discussed with the patient Palliative care consult placed by the primary attending Dr. Suarez. No further recommendations from neurology perspective.
--- NOTE | 2020-02-18 13:51 | PDOC.HOSPP ---
- Subjective Encounter Date: 02/18/20 Encounter Time: 10:10 Subjective: Nursing at bedside. pt is taking her meds. no acute issues. neuro note and EEG reprt reviewed. - Objective Vital Signs & Weight: Vital Signs (12 hours) Temp Pulse Resp BP Pulse Ox 02/18/20 09:36 81 02/18/20 08:00 97.5 F L 75 18 158/100 H 96 02/18/20 04:00 98.3 F 81 18 163/99 H 97 Weight Admit Weight 105 lb 13.15 oz Weight 91 lb 11.2 oz I&O: 02/17/20 02/18/20 02/19/20 06:59 06:59 06:59 Intake Total 200 960 Output Total 250 Balance -50 960 Result Diagrams: 02/15/20 04:13 02/16/20 14:05 Hospitalist ROS - Medication Medications: Active Medications Generic Name Dose Route Start Last Admin Trade Name Freq PRN Reason Stop Dose Admin Aspirin 81 mg 02/15/20 09:00 02/18/20 09:36 Ecotrin PO 81 mg DAILY ESTHER Administration Carvedilol 25 mg 02/15/20 21:00 02/18/20 09:37 Coreg PO 25 mg BID ESTHER Administration Cephalexin 250 mg 02/17/20 21:00 02/18/20 09:36 Keflex PO 250 mg BID ESTHER Administration Enoxaparin Sodium 30 mg 02/18/20 09:00 02/18/20 08:16 Lovenox SC Not Given 0900 [facility] Folic Acid 1 mg 02/15/20 09:00 02/18/20 09:35 Folvite PO 1 mg DAILY ESTHER Administration Lisinopril 2.5 mg 02/16/20 09:00 02/18/20 09:36 Zestril PO 2.5 mg DAILY ESTHER Administration Pantoprazole Sodium 40 mg 02/16/20 09:00 02/18/20 09:35 Protonix PO 40 mg DAILY ESTHER Administration Sertraline HCl 50 mg 02/16/20 09:00 02/18/20 09:37 Zoloft PO 50 mg DAILY ESTHER Administration Sodium Bicarbonate 650 mg 02/16/20 09:00 02/18/20 09:35 Bicarbonate, Sodium PO 650 mg DAILY ESTHER Administration Sodium Chloride 10 ml 02/16/20 09:00 02/18/20 09:40 Flush - Normal Saline IVF 10 ml Q12HR ESTHER Administration Thiamine HCl 100 mg 02/15/20 09:00 02/18/20 09:35 Thiamine PO 100 mg DAILY ESTHER Administration - Exam General Appearance: NAD, awake alert Eye: PERRL ENT: normocephalic atraumatic Neck: supple Heart: RRR Respiratory: CTAB, normal chest expansion Gastrointestinal: soft, normal bowel sounds Neurological: no focal deficits Hosp A/P - Plan Sepsis with UTI E.coli UTI GPC bacteremia - one set - ?contaminant -will repeat tomorrow on CTX Hx of seizure 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 just simple metab encephlaopathy [w./ hypotnesion, sepsis and UTI] vs.. alcohol excess [mom says pt drinks very little daily?] --starting low dose keppra, EEG, neuro consult Symptomatic anemia Anemia of chr disease - got transfusion, 9.6 today pancytopenia - onc. has seen her in the past -presumed d/t alco use Pancreatic cyst vs.. mass--------------> per EUS in 06/07 it is panc.. pseudocyst ---------> no further workup. Acute pancreatitis --received few liters of fluid - BP going up and pt started PO intake - will stop the IVF -appreciate the input from GI A/CKD3 -close monitorning, no nephrotoxics, renally dose the meds. EEG pending, will GET Ct head for complete work per neuro recommendation. - palliative consult placed, --GI c/s note reviewed. Protein calorie malnut -fw on prealbumin [albim 2.9 -ntr c/s placed. Deilitation FAilure to thrive w.. above comorbidities --PT/OT c/s placed. --pallative is on board. Full code. talk to neuro. will dc keprra as she may have alc induced seizure in the past and given the risk for somnolence w.. acute co-morbdiites and possibly palliative approach, weaning off some of the meds. and o/n EEG. EEG - of overnight duraiton-- Non-specific cerebral dysfn... dispo - pending placement.
[2020-02-19] MEDS: Folic Acid 1 MG TAB PO SCH (08:45)
[2020-02-19] MEDS: Sodium Bicarbonate Tab 325 MG TAB PO SCH (08:47)
[2020-02-19] MEDS: Aspirin 81 mg Enteric Coated Tablet PO SCH (08:47)
[2020-02-19] MEDS: Carvedilol 25 MG TAB PO SCH ×2 (08:47→20:54)
[2020-02-19] MEDS: Thiamine 100 MG TAB PO SCH (08:47)
[2020-02-19] MEDS: Lisinopril 2.5 MG TAB PO SCH (08:47)
[2020-02-19] MEDS: Enoxaparin Sodium 30 MG/0.3 ML SYRINGE SC SCH (08:48)
[2020-02-19] MEDS ORDERED: diphenhydrAMINE 50 MG/ML VIAL IVP PRN (10:23)
[2020-02-19] MEDS: Cephalexin 250 MG/5 ML Oral Suspension PO SCH ×2 (11:02→20:53)
--- NOTE | 2020-02-19 12:33 | PDOC.PALPN ---
Palliative Progress Note - Subjective Awake, alert. Complains of weakness. Hopeful to transition home. - Objective Vital Signs: Vital Signs - Most Recent Temp Pulse Resp BP Pulse Ox 98.7 F 76 18 141/88 H 97 02/19/20 08:00 02/19/20 08:47 02/19/20 08:00 02/19/20 08:47 02/19/20 08:00 - Physical Exam Constitutional: cachectic, emaciated, ill appearing HEENT: EOMI, moist MMs, poor dentition Respiratory: no wheezing, unlabored breathing Cardiovascular: RRR Gastrointestinal: soft, non-tender, positive bowel sounds Genitourinary: incontinent Musculoskeletal: diffuse muscle atrophy, muscle wasting Neurology: moves all 4 limbs, no focal deficits Skin: cap refill <2 seconds, no rash Psychiatric: normal affect - Assessment (1) Acute on chronic anemia Code(s): D64.9 - ANEMIA, UNSPECIFIED Current Visit: No Status: Acute (2) Acute worsening of stage 3 chronic kidney disease Code(s): N18.3 - CHRONIC KIDNEY DISEASE, STAGE 3 (MODERATE) Current Visit: No Status: Acute (3) Palliative care encounter Code(s): Z51.5 - ENCOUNTER FOR PALLIATIVE CARE Current Visit: No Status: Acute (4) Alcohol abuse Code(s): F10.10 - ALCOHOL ABUSE, UNCOMPLICATED Current Visit: No Status: Chronic (5) Pancreatic mass Current Visit: No Status: Chronic (6) Protein-calorie malnutrition, severe Code(s): E43 - UNSPECIFIED SEVERE PROTEIN-CALORIE MALNUTRITION Current Visit: No Status: Chronic - Plan Plan: Reviewed resuscitation status. Confirmed she desires full resuscitation measures. Discussed at length the impact of alcohol use on multiple morbidities. Wishes to transition home with home health. Although she states she "does not desire to drink" anymore she also states she enjoys drinking on the porch with her brother. She lives in a private residence with her mother as primary caregiver. Goal is to improve eating and gain strength. Hope to transition to home setting with home health. [30] minutes spent on this encounter with >50% of the time in counseling and coordination of care. - ROS Constitutional: weakness ENT: alteration in dentition, difficulty swallowing Respiratory: dry cough, other Cardiology: other (negative for chest pain discomfort) Genitourinary: stress incontinence Neurological: weakness
--- NOTE | 2020-02-19 13:38 | PDOC.FMACP ---
Advance Care Planning - Problem (1) Acute on chronic anemia Status: Acute Code(s): D64.9 - ANEMIA, UNSPECIFIED (2) Acute worsening of stage 3 chronic kidney disease Status: Acute Code(s): N18.3 - CHRONIC KIDNEY DISEASE, STAGE 3 (MODERATE) (3) Palliative care encounter Status: Acute Code(s): Z51.5 - ENCOUNTER FOR PALLIATIVE CARE (4) Alcohol abuse Status: Chronic Code(s): F10.10 - ALCOHOL ABUSE, UNCOMPLICATED (5) Pancreatic mass Status: Chronic (6) Protein-calorie malnutrition, severe Status: Chronic Code(s): E43 - UNSPECIFIED SEVERE PROTEIN-CALORIE MALNUTRITION - Note Participants: patient, palliative care Summary: Palliative care revisited Advanced Care Planning, allowed opportunity to decline. The diagnosis, prognosis and goals of care were discussed in relation to multiple morbidities. Appropriate forms and documentation to accomplish the goals of care were discussed and reviewed. Confirmed that her son who is listed on her MPOA is her surrogate decision maker. All questions were answered. Continue with full resuscitation measures. The Palliative Care Team will be engaged to assist with completion of any forms identified, such as if patient desires to revisit DNAR or Directive to Physician. Time Spent (mins): 20
--- NOTE | 2020-02-19 14:27 | PDOC.HOSPP ---
- Subjective Encounter Date: 02/19/20 Encounter Time: 11:40 Subjective: pt states that her mom takes care of her and has one sister who works for the most part of hte day. pt wondering whether she can go home, get clothes and then to the rehab. palliative checked with mom, and family prefers transient rehab for now for her. PT/OT already seen her. - Objective Vital Signs & Weight: Vital Signs (12 hours) Temp Pulse Resp BP BP Pulse Ox 02/19/20 12:00 98.4 F 80 16 139/80 97 02/19/20 08:47 76 141/88 H 02/19/20 08:00 98.7 F 76 18 141/88 H 97 02/19/20 03:11 98.7 F 71 16 165/98 H 98 Weight Admit Weight 105 lb 13.15 oz Weight 93 lb 7 oz I&O: 02/18/20 02/19/20 02/20/20 06:59 06:59 06:59 Intake Total 960 960 200 Output Total 250 Balance 960 710 200 Result Diagrams: 02/15/20 04:13 02/16/20 14:05 Hospitalist ROS - Medication Medications: Active Medications Generic Name Dose Route Start Last Admin Trade Name Freq PRN Reason Stop Dose Admin Aspirin 81 mg 02/15/20 09:00 02/19/20 08:47 Ecotrin PO 81 mg DAILY ESTHER Administration Carvedilol 25 mg 02/15/20 21:00 02/19/20 08:47 Coreg PO 25 mg BID ESTHER Administration Cephalexin 250 mg 02/17/20 21:00 02/19/20 11:02 Keflex PO 250 mg BID ESTHER Administration Enoxaparin Sodium 30 mg 02/18/20 09:00 02/19/20 08:48 Lovenox SC 30 mg 0900 ESTHER Administration Folic Acid 1 mg 02/15/20 09:00 02/19/20 08:45 Folvite PO 1 mg DAILY ESTHER Administration Lisinopril 2.5 mg 02/16/20 09:00 02/19/20 08:47 Zestril PO 2.5 mg DAILY ESTHER Administration Pantoprazole Sodium 40 mg 02/16/20 09:00 02/19/20 08:46 Protonix PO 40 mg DAILY ESTHER Administration Sertraline HCl 50 mg 02/16/20 09:00 02/19/20 08:46 Zoloft PO 50 mg DAILY ESTHER Administration Sodium Bicarbonate 650 mg 02/16/20 09:00 02/19/20 08:47 Bicarbonate, Sodium PO 650 mg DAILY ESTHER Administration Sodium Chloride 10 ml 02/16/20 09:00 02/19/20 08:48 Flush - Normal Saline IVF 10 ml Q12HR ESTHER Administration Thiamine HCl 100 mg 02/15/20 09:00 02/19/20 08:47 Thiamine PO 100 mg DAILY ESTHER Administration - Exam General Appearance: ill appearing Eye: PERRL ENT: normocephalic atraumatic Neck: supple Heart: RRR, normal peripheral pulses Respiratory: CTAB, normal chest expansion Gastrointestinal: soft, normal bowel sounds Neurological: no focal deficits Psychiatric: A&O x 3 Hosp A/P - Plan Sepsis with UTI E.coli UTI GPC bacteremia - one set - ?contaminant -will repeat tomorrow on CTX Hx of seizure 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 just simple metab encephlaopathy [w./ hypotnesion, sepsis and UTI] vs.. alcohol excess [mom says pt drinks very little daily?] --starting low dose keppra, EEG, neuro consult Symptomatic anemia Anemia of chr disease - got transfusion, 9.6 today pancytopenia - onc. has seen her in the past -presumed d/t alco use Pancreatic cyst vs.. mass--------------> per EUS in 06/07 it is panc.. pseudocyst ---------> no further workup. Acute pancreatitis --received few liters of fluid - BP going up and pt started PO intake - will stop the IVF -appreciate the input from GI A/CKD3 -close monitorning, no nephrotoxics, renally dose the meds. EEG pending, will GET Ct head for complete work per neuro recommendation. - palliative consult placed, --GI c/s note reviewed. Protein calorie malnut -fw on prealbumin [albim 2.9 -ntr c/s placed. Debilitation FAilure to thrive w.. above comorbidities --PT/OT c/s placed. --pallative is on board. Full code. talk to neuro. will dc lavinia as she may have alc induced seizure in the past and given the risk for somnolence w.. acute co-morbdiites and possibly palliative approach, weaning off some of the meds. and o/n EEG. EEG - of overnight duration-- Non-specific cerebral dysfn... Moderate malntr, protein calorie. --dietitican c/s and ensure w.. meals. Family wants her to go to the rehab, as mom is the doggy daycare activities director at home. Appreciate palliative involvement. dispo - pending placement.
[2020-02-20] MEDS: Cephalexin 250 MG/5 ML Oral Suspension PO SCH ×2 (09:56→22:00)
[2020-02-20] MEDS: Sodium Bicarbonate Tab 325 MG TAB PO SCH (09:56)
[2020-02-20] MEDS: Lisinopril 2.5 MG TAB PO SCH (09:56)
[2020-02-20] MEDS: Carvedilol 25 MG TAB PO SCH ×2 (09:57→22:00)
[2020-02-20] MEDS: Thiamine 100 MG TAB PO SCH (09:57)
[2020-02-20] MEDS: Folic Acid 1 MG TAB PO SCH (09:57)
[2020-02-20] MEDS: Aspirin 81 mg Enteric Coated Tablet PO SCH (09:57)
[2020-02-20] MEDS: Enoxaparin Sodium 30 MG/0.3 ML SYRINGE SC SCH (09:58)
--- NOTE | 2020-02-20 12:55 | PDOC.HOSPP ---
- Subjective Encounter Date: 02/20/20 Encounter Time: 09:40 Subjective: pt seen this am. nursing staff nearby. had good PO intake and no acute c/o. - Objective Vital Signs & Weight: Vital Signs (12 hours) Temp Pulse Resp BP Pulse Ox 02/20/20 11:20 97.9 F 75 16 182/105 H 96 02/20/20 10:00 95 02/20/20 09:50 98.2 F 81 16 152/88 H 95 02/20/20 05:50 167/99 H 02/20/20 04:00 97.5 F L 76 18 184/99 H 95 Weight Admit Weight 105 lb 13.15 oz Weight 91 lb 8 oz I&O: 02/19/20 02/20/20 02/21/20 06:59 06:59 06:59 Intake Total 960 1400 Output Total 250 200 Balance 710 1200 Result Diagrams: 02/15/20 04:13 02/16/20 14:05 Additional Labs: Accuchecks 02/20/20 02/20/20 02/19/20 11:06 06:05 20:02 POC Glucose 98 88 153 H Hospitalist ROS - Medication Medications: Active Medications Generic Name Dose Route Start Last Admin Trade Name Freq PRN Reason Stop Dose Admin Aspirin 81 mg 02/15/20 09:00 02/20/20 09:57 Ecotrin PO 81 mg DAILY ESTHER Administration Carvedilol 25 mg 02/15/20 21:00 02/20/20 09:57 Coreg PO 25 mg BID ESTHER Administration Cephalexin 250 mg 02/17/20 21:00 02/20/20 09:56 Keflex PO 250 mg BID ESTHER Administration Enoxaparin Sodium 30 mg 02/18/20 09:00 02/20/20 09:58 Lovenox SC Not Given 09 [facility] Folic Acid 1 mg 02/15/20 09:00 02/20/20 09:57 Folvite PO 1 mg DAILY ESTHER Administration Lisinopril 2.5 mg 02/16/20 09:00 02/20/20 09:56 Zestril PO 2.5 mg DAILY ESTHER Administration Pantoprazole Sodium 40 mg 02/16/20 09:00 02/20/20 09:56 Protonix PO 40 mg DAILY ESTHER Administration Sertraline HCl 50 mg 02/16/20 09:00 02/20/20 09:55 Zoloft PO 50 mg DAILY ESTHER Administration Sodium Bicarbonate 650 mg 02/16/20 09:00 02/20/20 09:56 Bicarbonate, Sodium PO 650 mg DAILY ESTHER Administration Sodium Chloride 10 ml 02/16/20 09:00 02/20/20 10:28 Flush - Normal Saline IVF Not Given Q12HR ESTHER Thiamine HCl 100 mg 02/15/20 09:00 02/20/20 09:57 Thiamine PO 100 mg DAILY ESTHER Administration - Exam General Appearance: NAD, awake alert, ill appearing Eye: PERRL ENT: normocephalic atraumatic Neck: supple Heart: RRR, normal peripheral pulses Respiratory: CTAB, normal chest expansion Gastrointestinal: soft, normal bowel sounds Neurological: no focal deficits Psychiatric: A&O x 3 Hosp A/P - Plan Sepsis with UTI E.coli UTI GPC bacteremia - one set - ?contaminant -will repeat tomorrow on CTX Hx of seizure 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 just simple metab encephlaopathy [w./ hypotnesion, sepsis and UTI] vs.. alcohol excess [mom says pt drinks very little daily?] --starting low dose keppra, EEG, neuro consult Symptomatic anemia Anemia of chr disease - got transfusion, 9.6 today pancytopenia - onc. has seen her in the past -presumed d/t alco use Pancreatic cyst vs.. mass--------------> per EUS in 06/07 it is panc.. pseudocyst ---------> no further workup. Acute pancreatitis --received few liters of fluid - BP going up and pt started PO intake - will stop the IVF -appreciate the input from GI A/CKD3 -close monitorning, no nephrotoxics, renally dose the meds. EEG pending, will GET Ct head for complete work per neuro recommendation. - palliative consult placed, --GI c/s note reviewed. Protein calorie malnut -fw on prealbumin [albim 2.9 -ntr c/s placed. Debilitation FAilure to thrive w.. above comorbidities --PT/OT c/s placed. --pallative is on board. Full code. talk to neuro. will dc lavinia as she may have alc induced seizure in the past and given the risk for somnolence w.. acute co-morbdiites and possibly palliative approach, weaning off some of the meds. and o/n EEG. EEG - of overnight duration-- Non-specific cerebral dysfn... Moderate malntr, protein calorie. --dietitican c/s and ensure w.. meals. Family wants her to go to the rehab, as mom is the career services manager at home. Appreciate palliative involvement. dispo - pending placement.
[2020-02-21] MEDS: Folic Acid 1 MG TAB PO SCH (09:19)
[2020-02-21] MEDS: Lisinopril 2.5 MG TAB PO SCH (09:19)
[2020-02-21] MEDS: Sodium Bicarbonate Tab 325 MG TAB PO SCH (09:19)
[2020-02-21] MEDS: Aspirin 81 mg Enteric Coated Tablet PO SCH (09:19)
[2020-02-21] MEDS: Carvedilol 25 MG TAB PO SCH ×2 (09:19→21:00)
[2020-02-21] MEDS: Thiamine 100 MG TAB PO SCH (09:19)
[2020-02-21] MEDS: Enoxaparin Sodium 30 MG/0.3 ML SYRINGE SC SCH (09:21)
[2020-02-21] MEDS: Cephalexin 250 MG/5 ML Oral Suspension PO SCH ×2 (10:01→21:00)
--- NOTE | 2020-02-21 12:20 | PDOC.HOSPP ---
- Subjective Encounter Date: 02/21/20 Encounter Time: 12:19 non-verbal Subjective: Ms. Oconnell was seen today in follow-up of altered mental status. She does not have any complaints. She is oriented X3, but had to think about the location and date for a few minutes before reaching the correct conclusion. - Objective Vital Signs & Weight: Vital Signs (12 hours) Temp Pulse Resp BP Pulse Ox 02/21/20 12:13 98.4 F 82 16 146/90 H 95 02/21/20 09:13 98.3 F 84 16 156/94 H 95 02/21/20 04:00 97.9 F 88 18 163/100 H 97 Weight Admit Weight 105 lb 13.15 oz Weight 91 lb 14.4 oz I&O: 02/20/20 02/21/20 02/22/20 06:59 06:59 06:59 Intake Total 1400 1150 Output Total 200 Balance 1200 1150 Result Diagrams: 02/15/20 04:13 02/16/20 14:05 Additional Labs: Accuchecks 02/20/20 02/20/20 20:18 16:28 POC Glucose 269 H 146 H Hospitalist ROS - Medication Medications: Active Medications Generic Name Dose Route Start Last Admin Trade Name Freq PRN Reason Stop Dose Admin Aspirin 81 mg 02/15/20 09:00 02/21/20 09:19 Ecotrin PO 81 mg DAILY ESTHER Administration Carvedilol 25 mg 02/15/20 21:00 02/21/20 09:19 Coreg PO 25 mg BID ESTHER Administration Cephalexin 250 mg 02/17/20 21:00 02/21/20 10:01 Keflex PO 250 mg BID ESTHER Administration Enoxaparin Sodium 30 mg 02/18/20 09:00 02/21/20 09:21 Lovenox SC 30 mg 0900 ESTHER Administration Folic Acid 1 mg 02/15/20 09:00 02/21/20 09:19 Folvite PO 1 mg DAILY ESTHER Administration Lisinopril 2.5 mg 02/16/20 09:00 02/21/20 09:19 Zestril PO 2.5 mg DAILY ESTHER Administration Pantoprazole Sodium 40 mg 02/16/20 09:00 02/21/20 09:19 Protonix PO 40 mg DAILY ESTHER Administration Sertraline HCl 50 mg 02/16/20 09:00 02/21/20 09:19 Zoloft PO 50 mg DAILY ESTHER Administration Sodium Bicarbonate 650 mg 02/16/20 09:00 02/21/20 09:19 Bicarbonate, Sodium PO 650 mg DAILY ESTHER Administration Sodium Chloride 10 ml 02/16/20 09:00 02/21/20 09:21 Flush - Normal Saline IVF 10 ml Q12HR ESTHER Administration Thiamine HCl 100 mg 02/15/20 09:00 02/21/20 09:19 Thiamine PO 100 mg DAILY ESTHER Administration - Exam General Appearance: ill appearing General - other findings: temporal muscle wasting Heart: RRR, no murmur, no gallops, no rubs, normal peripheral pulses Respiratory: CTAB, no wheezes, no rales, no ronchi, normal chest expansion Gastrointestinal: soft, non-tender, non-distended, normal bowel sounds Extremities: no cyanosis, no edema Musculoskeletal: generalized weakness, diffuse muscle atrophy Hosp A/P (1) Metabolic encephalopathy Code(s): G93.41 - METABOLIC ENCEPHALOPATHY Status: Resolved (2) UTI (urinary tract infection) Status: Acute (3) Chronic pancreatitis Code(s): K86.1 - OTHER CHRONIC PANCREATITIS Status: Acute (4) Severe protein-energy malnutrition Code(s): E43 - UNSPECIFIED SEVERE PROTEIN-CALORIE MALNUTRITION Status: Acute (5) CAD (coronary artery disease) Code(s): I25.10 - ATHSCL HEART DISEASE OF [place] CORONARY ARTERY W/O ANG PCTRS Status: Chronic (6) Hypertension Code(s): I10 - ESSENTIAL (PRIMARY) HYPERTENSION Status: Chronic Qualifiers: (7) Hypothyroidism Code(s): E03.9 - HYPOTHYROIDISM, UNSPECIFIED Status: Chronic Qualifiers: (8) Macrocytic anemia Code(s): D53.9 - NUTRITIONAL ANEMIA, UNSPECIFIED Status: Chronic (9) Seizure Code(s): R56.9 - UNSPECIFIED CONVULSIONS Status: Resolved - Plan * UTI with metabolic encephalopathy- she has a urine culture growing E. Coli- continue Keflex * HTN- blood pressure is stable * CAD- stable * Severe Malnutrition- continue nutritional and vitamin supplementation. And encourage oral intake * Severe deconditioning- continue PT/OT and awaiting senior living transfer
[2020-02-22 08:16] LABS: #Eosinphils 0.1 thou/uL (0.0-0.7); #Lymphocytes 0.6 thou/uL (1.20-3.40); #Monocytes 0.4 thou/uL (0.11-0.59); #Neutrophils 1.7 thou/uL (1.40-6.50); %Basophils 0.4 % (0.0-1.0); %Eosinophils 2.8 % (0.0-10.0); %Lymphocytes 21.2 % (21.0-51.0); %Monocytes 14.7 % (0.0-10.0); Hemoglobin 7.3 g/dL (12.0-16.0); Mean Corpuscular HGB CONC 34.1 g/dL (32.0-36.0); Mean Corpuscular Hemoglobin 34.6 pg (27.0-31.0); Platelet Count 117 thou/uL (130-400); RBC Distribution Width 18.4 % (11.5-14.5); White Blood Cell (WBC) Count 2.7 thou/uL (4.8-10.8)
[2020-02-22] MEDS: Enoxaparin Sodium 30 MG/0.3 ML SYRINGE SC SCH (08:17)
[2020-02-22] MEDS: Carvedilol 25 MG TAB PO SCH ×2 (08:18→22:40)
[2020-02-22] MEDS: Folic Acid 1 MG TAB PO SCH (08:18)
[2020-02-22] MEDS: Aspirin 81 mg Enteric Coated Tablet PO SCH (08:18)
[2020-02-22] MEDS: Thiamine 100 MG TAB PO SCH (08:18)
[2020-02-22] MEDS: Sodium Bicarbonate Tab 325 MG TAB PO SCH (08:18)
[2020-02-22] MEDS: Lisinopril 2.5 MG TAB PO SCH (08:19)
[2020-02-22 08:28] LABS: Anion Gap 11 mmol/L (10-20); BUN (Urea Nitrogen) 51 mg/dL (9.8-20.1); Calc. Creatinine Clearance 23 mL/min (70-130); Calcium 8.2 mg/dL (7.8-10.44); Carbon Dioxide 24 mmol/L (23-31); Chloride 115 mmol/L (98-107); Estimated GFR-MDRD 39; Glucose 91 mg/dL (80-115); Sodium 145 mmol/L (136-145)
[2020-02-22] MEDS: Cephalexin 250 MG/5 ML Oral Suspension PO SCH (09:52)
--- NOTE | 2020-02-22 14:50 | PDOC.HOSPP ---
- Subjective Encounter Date: 02/22/20 Encounter Time: 14:48 Subjective: Ms. Oconnell was seen today in followup of metabolic encephalopathy and UTI. She does not have any new complaints. She says her appetite has improved. - Objective Vital Signs & Weight: Vital Signs (12 hours) Temp Pulse Resp BP Pulse Ox 02/22/20 11:23 98.9 F 100 16 117/73 95 02/22/20 08:20 96 02/22/20 08:15 99.2 F 77 16 156/87 H 96 02/22/20 02:58 99.0 F 90 16 156/96 H 95 Weight Admit Weight 105 lb 13.15 oz Weight 94 lb 6.4 oz I&O: 02/21/20 02/22/20 02/23/20 06:59 06:59 06:59 Intake Total 1150 1090 Balance 1150 1090 Result Diagrams: 02/22/20 08:02 02/22/20 08:02 Hospitalist ROS - Medication Medications: Active Medications Generic Name Dose Route Start Last Admin Trade Name Josette PRN Reason Stop Dose Admin Aspirin 81 mg 02/15/20 09:00 02/22/20 08:18 Ecotrin PO 81 mg DAILY ESTHER Administration Carvedilol 25 mg 02/15/20 21:00 02/22/20 08:18 Coreg PO 25 mg BID ESTHER Administration Cephalexin 250 mg 02/17/20 21:00 02/22/20 09:52 Keflex PO 250 mg BID ESTHER Administration Enoxaparin Sodium 30 mg 02/18/20 09:00 02/22/20 08:17 Lovenox SC Not Given 09 ESTHER Folic Acid 1 mg 02/15/20 09:00 02/22/20 08:18 Folvite PO 1 mg DAILY ESTHER Administration Lisinopril 2.5 mg 02/16/20 09:00 02/22/20 08:19 Zestril PO 2.5 mg DAILY ESTHER Administration Pantoprazole Sodium 40 mg 02/16/20 09:00 02/22/20 08:19 Protonix PO 40 mg DAILY ESTHER Administration Sertraline HCl 50 mg 02/16/20 09:00 02/22/20 08:18 Zoloft PO 50 mg DAILY ESTHER Administration Sodium Bicarbonate 650 mg 02/16/20 09:00 02/22/20 08:18 Bicarbonate, Sodium PO 650 mg DAILY ESTHER Administration Sodium Chloride 10 ml 02/16/20 09:00 02/22/20 08:19 Flush - Normal Saline IVF Not Given Q12HR ESTHER Thiamine HCl 100 mg 02/15/20 09:00 02/22/20 08:18 Thiamine PO 100 mg DAILY ESTHER Administration - Exam Eye: PERRL, anicteric sclera Heart: RRR, no murmur, no gallops, no rubs, normal peripheral pulses Respiratory: CTAB, no wheezes, no rales, no ronchi, normal chest expansion, no tachypnea Gastrointestinal: soft, non-tender, non-distended, normal bowel sounds, no palpable masses Extremities: no cyanosis, no edema Hosp A/P (1) Metabolic encephalopathy Code(s): G93.41 - METABOLIC ENCEPHALOPATHY Status: Resolved (2) UTI (urinary tract infection) Status: Acute (3) Chronic pancreatitis Code(s): K86.1 - OTHER CHRONIC PANCREATITIS Status: Acute (4) Severe protein-energy malnutrition Code(s): E43 - UNSPECIFIED SEVERE PROTEIN-CALORIE MALNUTRITION Status: Acute (5) CAD (coronary artery disease) Code(s): I25.10 - ATHSCL HEART DISEASE OF [place] CORONARY ARTERY W/O ANG PCTRS Status: Chronic (6) Hypertension Code(s): I10 - ESSENTIAL (PRIMARY) HYPERTENSION Status: Chronic Qualifiers: (7) Hypothyroidism Code(s): E03.9 - HYPOTHYROIDISM, UNSPECIFIED Status: Chronic Qualifiers: (8) Macrocytic anemia Code(s): D53.9 - NUTRITIONAL ANEMIA, UNSPECIFIED Status: Chronic (9) Seizure Code(s): R56.9 - UNSPECIFIED CONVULSIONS Status: Resolved - Plan * UTI with metabolic encephalopathy- she has a urine culture growing E. Coli- she has received a full course of antibiotics/ Will discontinue Keflex * HTN- blood pressure is stable * CAD- stable * Severe Malnutrition- continue nutritional and vitamin supplementation. * Severe deconditioning- continue PT/OT and awaiting correction transfer
--- NOTE | 2020-02-22 21:17 | PDOC.EVN ---
Event Note - Event Note Event Note: Nurse called, unwitnessed fall. Complaining left hip and left ankle pain. Ordered CT brain, XR ankle and hip.
--- NOTE | 2020-02-22 22:12 | RAD ---
Exam: XR Ankle Lt 3 View STANDARD HISTORY: Injury to left ankle after a fall. COMPARISON: 10/23/2014 FINDINGS: There is diffuse osteopenia. The ankle mortise is congruent. Mild degenerative changes are seen at th e ankle and involving the midfoot similar to prior exam. No acute fracture, dislocation, or other acute osseous abnormality is identified. IMPRESSION: No acute osseous abnormality is identified. Osteopenia and degenerative changes.
--- NOTE | 2020-02-22 22:16 | RAD ---
Exam: XR Hip Lt 2-3 View HISTORY: Injury to left hip after a fall. COMPARISON: 10/23/2014 FINDINGS: Stable postoperative changes left hip are again seen. No fracture or dislocation is identified. There is osteopenia present. Phleboliths and vascular calcifications overlie the pelvis with vascular calcifications in the femoral arteries. Multiple radiopaque densities overlie the left hip on the lat eral projection likely related to overlying artifact as this is not present on the frontal projection. IMPRESSION: No acute osseous abnormality is identified.
--- NOTE | 2020-02-22 22:35 | CT ---
CT HEAD WITHOUT IV CONTRAST COMPARISON: 02/16/2020 HISTORY: Unwitnessed fall, altered mental status TECHNIQUE: Axial CT imaging at 5 mm intervals from vertex through skull base without contrast FINDINGS: There is decreased attenuation in the periventricular white matter which is nonspecific but likely re flective of chronic small vessel ischemic changes. Low-density areas are again seen in the right cerebellar hemisphere most suggestive of remote infarctions. There is mild cerebral and cerebellar volume loss. The ventricular system is normal in size, shape, a nd position for the degree of sulcal atrophy. Again noted is the increased density extra-axial mass along the squamosal portion of the left temporal bone similar to prior study likely related to a meni ngioma. Large coarse calcification is again seen in the region of the occipital horn left lateral ventricle. These findings are also stable as compared to study in 2019. There is no evidence of an acute infarction, hemorrhage, mass effect, or midline shift. Visualized paranasal sinuses are clear. Osseous structures appear intact. IMPRESSION: 1. No acute intracranial abnormality demonstrated. 2. Chronic small vessel ischemic changes and cerebral volume loss. 3. Stable extra-axial mass along the left temporal bone again likely reflective of a meningioma. 4. Remote infarction right cerebellar hemisphere.
[2020-02-22] MEDS: Acetaminophen 325 MG TAB PO PRN (22:40)
[2020-02-23] MEDS: Sodium Bicarbonate Tab 325 MG TAB PO SCH (08:20)
[2020-02-23] MEDS: Aspirin 81 mg Enteric Coated Tablet PO SCH (08:20)
[2020-02-23] MEDS: Lisinopril 2.5 MG TAB PO SCH (08:21)
[2020-02-23] MEDS: Thiamine 100 MG TAB PO SCH (08:21)
[2020-02-23] MEDS: Carvedilol 25 MG TAB PO SCH ×2 (08:21→21:01)
[2020-02-23] MEDS: Folic Acid 1 MG TAB PO SCH (08:21)
[2020-02-23] MEDS: Enoxaparin Sodium 30 MG/0.3 ML SYRINGE SC SCH (08:38)
--- NOTE | 2020-02-23 08:49 | PDOC.HOSPP ---
- Subjective Encounter Date: 02/23/20 Encounter Time: 08:47 Subjective: Ms. Oconnell was seen today in follow-up of encephalopathy and now had a fall yesterday. She notes pain in her left upper extremity. - Objective Vital Signs & Weight: Vital Signs (12 hours) Temp Pulse Resp BP Pulse Ox 02/23/20 08:21 92 02/23/20 07:51 99.5 F 92 15 161/98 H 94 L 02/23/20 03:56 99.4 F 92 16 155/97 H 100 02/22/20 23:55 91 143/86 H 02/22/20 21:21 90 157/95 H Weight Admit Weight 105 lb 13.15 oz Weight 101 lb 1.6 oz I&O: 02/22/20 02/23/20 02/24/20 06:59 06:59 06:59 Intake Total 1090 1070 Balance 1090 1070 Result Diagrams: 02/22/20 08:02 02/22/20 08:02 Hospitalist ROS - Medication Medications: Active Medications Generic Name Dose Route Start Last Admin Trade Name Josette PRN Reason Stop Dose Admin Acetaminophen 650 mg 02/14/20 16:02 02/22/20 22:40 Tylenol PO 650 mg Q4H PRN Administration Headache/Fever/Mild Pain (1-3) Aspirin 81 mg 02/15/20 09:00 02/23/20 08:20 Ecotrin PO 81 mg DAILY ESTHER Administration Carvedilol 25 mg 02/15/20 21:00 02/23/20 08:21 Coreg PO 25 mg BID ESTHER Administration Enoxaparin Sodium 30 mg 02/18/20 09:00 02/23/20 08:38 Lovenox SC Not Given 899 ESTHER Folic Acid 1 mg 02/15/20 09:00 02/23/20 08:21 Folvite PO 1 mg DAILY ESTHER Administration Lisinopril 2.5 mg 02/16/20 09:00 02/23/20 08:21 Zestril PO 2.5 mg DAILY ESTHER Administration Pantoprazole Sodium 40 mg 02/16/20 09:00 02/23/20 08:20 Protonix PO 40 mg DAILY ESTHER Administration Sertraline HCl 50 mg 02/16/20 09:00 02/23/20 08:21 Zoloft PO 50 mg DAILY ESTHER Administration Sodium Bicarbonate 650 mg 02/16/20 09:00 02/23/20 08:20 Bicarbonate, Sodium PO 650 mg DAILY ESTHER Administration Sodium Chloride 10 ml 02/16/20 09:00 02/23/20 08:23 Flush - Normal Saline IVF Not Given Q12HR ESTHER Thiamine HCl 100 mg 02/15/20 09:00 02/23/20 08:21 Thiamine PO 100 mg DAILY ESTHER Administration - Exam Eye: PERRL, anicteric sclera Heart: RRR, no murmur, no gallops, no rubs, normal peripheral pulses Respiratory: CTAB, no wheezes, no rales, no ronchi, normal chest expansion Gastrointestinal: soft, non-tender, non-distended, normal bowel sounds, no palpable masses Extremities: no cyanosis, no edema (no ponit tenderness, full range of motion in the left upper extremity) Hosp A/P (1) Metabolic encephalopathy Code(s): G93.41 - METABOLIC ENCEPHALOPATHY Status: Resolved (2) UTI (urinary tract infection) Status: Acute (3) Chronic pancreatitis Code(s): K86.1 - OTHER CHRONIC PANCREATITIS Status: Acute (4) Severe protein-energy malnutrition Code(s): E43 - UNSPECIFIED SEVERE PROTEIN-CALORIE MALNUTRITION Status: Acute (5) CAD (coronary artery disease) Code(s): I25.10 - ATHSCL HEART DISEASE OF [place] CORONARY ARTERY W/O ANG PCTRS Status: Chronic (6) Hypertension Code(s): I10 - ESSENTIAL (PRIMARY) HYPERTENSION Status: Chronic Qualifiers: (7) Hypothyroidism Code(s): E03.9 - HYPOTHYROIDISM, UNSPECIFIED Status: Chronic Qualifiers: (8) Macrocytic anemia Code(s): D53.9 - NUTRITIONAL ANEMIA, UNSPECIFIED Status: Chronic (9) Seizure Code(s): R56.9 - UNSPECIFIED CONVULSIONS Status: Resolved - Plan * Left Upper extremity pain- will check an Xray- clinically there ws no significant bruising, no point tenderness * UTI with metabolic encephalopathy- resolvd * HTN- blood pressure is beginning to creep up- will add Hydralazine as needed and may schedule as well * CAD- stable * Severe Malnutrition- continue nutritional and vitamin supplementation. * Severe deconditioning- continue PT/OT and awaiting prison transfer
[2020-02-23] MEDS: Acetaminophen 325 MG TAB PO PRN (09:47)
--- NOTE | 2020-02-23 12:56 | RAD ---
LEFT WRIST 3 VIEWS: Date: 02/23/2020 HISTORY: Injury from a fall. FINDINGS: Heterogeneous bony demineralization. Arthrosis and degenerative changes including the triscaphe and t rapezium first metacarpal joints. No acute fracture or dislocation. IMPRESSION: Bony demineralization and osteoarthrosis change without acute fracture. POS: [facility]
--- NOTE | 2020-02-23 12:57 | RAD ---
LEFT HAND 3 VIEWS: Date: 02/23/2020 HISTORY: Injury from a fall. FINDINGS: Slightly comminuted, volarly angulated fracture of the distal fifth metacarpal with some foreshorteni ng. Bony demineralization and osteoarthrosis change. IMPRESSION: Minimally comminuted fracture of distal fifth metacarpal with volar angulation and minimal foreshorte analilia. Bony demineralization and osteoarthrosis. POS: [facility]
--- NOTE | 2020-02-23 12:57 | RAD ---
Exam: XR Humerus Lt 2 View STANDARD HISTORY: Left arm pain. COMPARISON: None FINDINGS: There is a cerclage wire and 2 pins transfixing the olecranon process of the ulna. There is osteopeni a present. There is a corticated osseous density seen just anterior to the left elbow joint likely due to remote avulsion injury. No acute fracture, dislocation, or other acute osseous abnormality is identified. IMPRESSION: No acute osseous abnormality is identified. Osteopenia.
--- NOTE | 2020-02-23 12:58 | RAD ---
RADIOGRAPH LEFT FOREARM 2VIEWS: DATE: 02/23/2020 HISTORY: 69-year-old female with acute left forearm pain due to trauma: Fall. FINDINGS: There is no evidence of fracture. There is prominent callus at the junction between middle and distal thirds of the ulnar diaphysis. Figure of 8 tension band +2 K wires fixating the proximal ulna, including olecranon process. No fracture lucency visualized in that location. IMPRESSION: 1. No fracture identified. 2. Nonacute, late stage healing fracture of ulnar shaft. 3. Status post open reduction internal fixation of old proximal ulnar fracture.
--- NOTE | 2020-02-23 12:58 | RAD ---
LEFT SHOULDER 3 VIEWS: Date: 02/23/2020 HISTORY: Injury from a fall, left shoulder pain. FINDINGS/IMPRESSION: Mild bony demineralization and osteoarthrosis. No acute fracture or dislocation. POS: [facility]
[2020-02-23 13:36] VITALS: BMI 17.3
[2020-02-23] MEDS ORDERED: Acetaminophen/Codeine 30-300mg Tablet PO PRN (19:15)
--- NOTE | 2020-02-23 19:16 | PDOC.EVN ---
Event Note - Event Note Event Note: X-ray of the patient's hand was noted. She has a fracture of the 5th metacarpal. Will splint the finger, and treat symptomatically.
[2020-02-24 08:51] LABS: #Eosinphils 0.1 thou/uL (0.0-0.7); #Lymphocytes 0.5 thou/uL (1.20-3.40); #Monocytes 0.3 thou/uL (0.11-0.59); #Neutrophils 1.7 thou/uL (1.40-6.50); %Basophils 0.4 % (0.0-1.0); %Eosinophils 4.5 % (0.0-10.0); %Lymphocytes 19.4 % (21.0-51.0); %Monocytes 11.6 % (0.0-10.0); %Neutrophils 64.1 % (42.0-75.0); Anion Gap 13 mmol/L (10-20); BUN (Urea Nitrogen) 60 mg/dL (9.8-20.1); Calc. Creatinine Clearance 20 mL/min (70-130); Calcium 8.3 mg/dL (7.8-10.44); Carbon Dioxide 24 mmol/L (23-31); Chloride 111 mmol/L (98-107); Estimated GFR-MDRD 33; Glucose 150 mg/dL (80-115); Hemoglobin 6.6 g/dL (12.0-16.0); Mean Corpuscular Hemoglobin 33.9 pg (27.0-31.0); Mean Platelet Volume 7.7 fL (7.4-10.4); Platelet Count 153 thou/uL (130-400); Potassium 5.1 mmol/L (3.5-5.1); RBC Distribution Width 18.2 % (11.5-14.5); Red Blood Cell (RBC) Count 1.95 mill/uL (4.20-5.40); Sodium 143 mmol/L (136-145); White Blood Cell (WBC) Count 2.7 thou/uL (4.8-10.8)
[2020-02-24] MEDS: Sodium Bicarbonate Tab 325 MG TAB PO SCH (08:58)
[2020-02-24] MEDS: Enoxaparin Sodium 30 MG/0.3 ML SYRINGE SC SCH (08:58)
[2020-02-24] MEDS: Carvedilol 25 MG TAB PO SCH ×2 (08:59→22:11)
[2020-02-24] MEDS: Lisinopril 2.5 MG TAB PO SCH (08:59)
[2020-02-24] MEDS: Aspirin 81 mg Enteric Coated Tablet PO SCH (08:59)
[2020-02-24] MEDS: Thiamine 100 MG TAB PO SCH (08:59)
[2020-02-24] MEDS: Folic Acid 1 MG TAB PO SCH (08:59)
[2020-02-24 09:36] LABS: MDiff Complete? YES; Macrocytosis SLIGHT = 6-15 cells (100X) (0-5/hpf); Platelet Morphology Comment Appears Adequate; Polychromasia SLIGHT = 2-3 cells (100X) (0-2/hpf)
--- NOTE | 2020-02-24 13:17 | PDOC.HOSPP ---
- Subjective Encounter Date: 02/24/20 Encounter Time: 13:15 Subjective: Ms. Oconnell was seen today in follow-up of metabolic encephalopathy. She is at her baseline. She says the pain in her finger is a bit better today than yesterday. No new complaints. - Objective Vital Signs & Weight: Vital Signs (12 hours) Temp Pulse Resp BP BP Pulse Ox 02/24/20 12:24 98.8 F 85 14 141/82 H 94 L 02/24/20 08:59 88 153/89 H 02/24/20 07:29 98.5 F 87 16 149/93 H 96 02/24/20 03:16 97.6 F 83 20 164/89 H 94 L Weight Admit Weight 105 lb 13.15 oz Weight 96 lb 9 oz I&O: 02/23/20 02/24/20 02/25/20 06:59 06:59 06:59 Intake Total 1070 1440 Output Total 300 Balance 1070 1140 Result Diagrams: 02/24/20 08:12 02/24/20 08:12 Hospitalist ROS - Medication Medications: Active Medications Generic Name Dose Route Start Last Admin Trade Name Freq PRN Reason Stop Dose Admin Acetaminophen 650 mg 02/14/20 16:02 02/23/20 09:47 Tylenol PO 650 mg Q4H PRN Administration Headache/Fever/Mild Pain (1-3) Acetaminophen/Codeine Phosphate 1 tab 02/23/20 19:15 02/23/20 21:01 Tylenol #3 PO 1 tab Q4H PRN Administration Moderate Pain (4-6) Aspirin 81 mg 02/15/20 09:00 02/24/20 08:59 Ecotrin PO 81 mg DAILY ESTHER Administration Carvedilol 25 mg 02/15/20 21:00 02/24/20 08:59 Coreg PO 25 mg BID ESTHER Administration Enoxaparin Sodium 30 mg 02/18/20 09:00 02/24/20 08:58 Lovenox SC Not Given [address] [facility] Folic Acid 1 mg 02/15/20 09:00 02/24/20 08:59 Folvite PO 1 mg DAILY ESTHER Administration Lisinopril 2.5 mg 02/16/20 09:00 02/24/20 08:59 Zestril PO 2.5 mg DAILY ESTHER Administration Pantoprazole Sodium 40 mg 02/16/20 09:00 02/24/20 08:59 Protonix PO 40 mg DAILY ESTHER Administration Sertraline HCl 50 mg 02/16/20 09:00 02/24/20 08:59 Zoloft PO 50 mg DAILY ESTHER Administration Sodium Bicarbonate 650 mg 02/16/20 09:00 02/24/20 08:58 Bicarbonate, Sodium PO 650 mg DAILY ESTHER Administration Sodium Chloride 10 ml 02/16/20 09:00 02/24/20 09:00 Flush - Normal Saline IVF Not Given Q12HR ESTHER Thiamine HCl 100 mg 02/15/20 09:00 02/24/20 08:59 Thiamine PO 100 mg DAILY ESTHER Administration - Exam Eye: PERRL, anicteric sclera Heart: RRR, no murmur, no gallops, no rubs, normal peripheral pulses Respiratory: CTAB, no wheezes, no rales Gastrointestinal: soft, non-tender, non-distended, normal bowel sounds Extremities: no cyanosis, no edema Hosp A/P (1) Metabolic encephalopathy Code(s): G93.41 - METABOLIC ENCEPHALOPATHY Status: Resolved (2) UTI (urinary tract infection) Status: Acute (3) Chronic pancreatitis Code(s): K86.1 - OTHER CHRONIC PANCREATITIS Status: Acute (4) Severe protein-energy malnutrition Code(s): E43 - UNSPECIFIED SEVERE PROTEIN-CALORIE MALNUTRITION Status: Acute (5) CAD (coronary artery disease) Code(s): I25.10 - ATHSCL HEART DISEASE OF [place] CORONARY ARTERY W/O ANG PCTRS Status: Chronic (6) Hypertension Code(s): I10 - ESSENTIAL (PRIMARY) HYPERTENSION Status: Chronic Qualifiers: (7) Hypothyroidism Code(s): E03.9 - HYPOTHYROIDISM, UNSPECIFIED Status: Chronic Qualifiers: (8) Macrocytic anemia Code(s): D53.9 - NUTRITIONAL ANEMIA, UNSPECIFIED Status: Chronic (9) Seizure Code(s): R56.9 - UNSPECIFIED CONVULSIONS Status: Resolved - Plan * Left Upper extremity pain- will check an Xray- clinically there ws no significant bruising, no point tenderness * UTI with metabolic encephalopathy- resolved * Severe Anemia- likely due to direct bone marrow toxicity- will transfuse today , and transfuse as needed * HTN- blood pressure is beginning to creep up- will add Hydralazine as needed and may schedule as well * CAD- stable * Severe Malnutrition- continue nutritional and vitamin supplementation. * Severe deconditioning- continue PT/OT * [facility] once she has her blood transfusion
[2020-02-24 21:15] LABS: Hemoglobin 8.3 g/dL (12.0-16.0); Platelet Count 147 thou/uL (130-400)
[2020-02-25] MEDS: Aspirin 81 mg Enteric Coated Tablet PO SCH (08:50)
[2020-02-25] MEDS: Enoxaparin Sodium 30 MG/0.3 ML SYRINGE SC SCH (08:50)
[2020-02-25] MEDS: Carvedilol 25 MG TAB PO SCH (08:50)
[2020-02-25] MEDS: Lisinopril 2.5 MG TAB PO SCH (08:51)
[2020-02-25] MEDS: Folic Acid 1 MG TAB PO SCH (08:51)
[2020-02-25] MEDS: Thiamine 100 MG TAB PO SCH (08:52)
[2020-02-25] MEDS: Sodium Bicarbonate Tab 325 MG TAB PO SCH (08:52)
--- NOTE | 2020-02-25 11:49 | PDOC.HOSPP ---
- Subjective Encounter Date: 02/25/20 Encounter Time: 11:48 Subjective: Ms. Oconnell was seen today in follow-up of metabolic encephalopathy. She does not have any complaints. - Objective Vital Signs & Weight: Vital Signs (12 hours) Temp Pulse Resp BP Pulse Ox 02/25/20 08:42 98.1 F 103 H 13 163/97 H 96 02/25/20 04:00 98.7 F 98 18 153/88 H 95 Weight Admit Weight 105 lb 13.15 oz Weight 96 lb 6 oz I&O: 02/24/20 02/25/20 02/26/20 06:59 06:59 06:59 Intake Total 1440 1080 Output Total 300 300 Balance 1140 780 Result Diagrams: 02/24/20 21:06 02/24/20 08:12 Hospitalist ROS - Medication Medications: Active Medications Generic Name Dose Route Start Last Admin Trade Name Freq PRN Reason Stop Dose Admin Acetaminophen 650 mg 02/14/20 16:02 02/23/20 09:47 Tylenol PO 650 mg Q4H PRN Administration Headache/Fever/Mild Pain (1-3) Acetaminophen/Codeine Phosphate 1 tab 02/23/20 19:15 02/23/20 21:01 Tylenol #3 PO 1 tab Q4H PRN Administration Moderate Pain (4-6) Aspirin 81 mg 02/15/20 09:00 02/25/20 08:50 Ecotrin PO 81 mg DAILY ESTHER Administration Carvedilol 25 mg 02/15/20 21:00 02/25/20 08:50 Coreg PO 25 mg BID ESTHER Administration Enoxaparin Sodium 30 mg 02/18/20 09:00 02/25/20 08:50 Lovenox SC 30 mg 899 ESTHER Administration Folic Acid 1 mg 02/15/20 09:00 02/25/20 08:51 Folvite PO 1 mg DAILY ESTHER Administration Lisinopril 2.5 mg 02/16/20 09:00 02/25/20 08:51 Zestril PO 2.5 mg DAILY ESTHER Administration Pantoprazole Sodium 40 mg 02/16/20 09:00 02/25/20 08:51 Protonix PO 40 mg DAILY ESTHER Administration Sertraline HCl 50 mg 02/16/20 09:00 02/25/20 08:52 Zoloft PO 50 mg DAILY ESTHER Administration Sodium Bicarbonate 650 mg 02/16/20 09:00 02/25/20 08:52 Bicarbonate, Sodium PO 650 mg DAILY ESTHER Administration Sodium Chloride 10 ml 02/16/20 09:00 02/25/20 08:52 Flush - Normal Saline IVF 10 ml Q12HR ESTHER Administration Thiamine HCl 100 mg 02/15/20 09:00 02/25/20 08:52 Thiamine PO 100 mg DAILY ESTHER Administration - Exam Eye: PERRL, anicteric sclera Eye - other findings: Temporal muscle wasting Heart: RRR, no murmur, no gallops, no rubs, normal peripheral pulses Respiratory: CTAB, no wheezes, no rales, no ronchi, normal chest expansion Gastrointestinal: soft, non-tender, non-distended, normal bowel sounds Extremities: no cyanosis, no edema Hosp A/P (1) Metabolic encephalopathy Code(s): G93.41 - METABOLIC ENCEPHALOPATHY Status: Resolved (2) UTI (urinary tract infection) Status: Acute (3) Chronic pancreatitis Code(s): K86.1 - OTHER CHRONIC PANCREATITIS Status: Acute (4) Severe protein-energy malnutrition Code(s): E43 - UNSPECIFIED SEVERE PROTEIN-CALORIE MALNUTRITION Status: Acute (5) CAD (coronary artery disease) Code(s): I25.10 - ATHSCL HEART DISEASE OF [place] CORONARY ARTERY W/O ANG PCTRS Status: Chronic (6) Hypertension Code(s): I10 - ESSENTIAL (PRIMARY) HYPERTENSION Status: Chronic Qualifiers: (7) Hypothyroidism Code(s): E03.9 - HYPOTHYROIDISM, UNSPECIFIED Status: Chronic Qualifiers: (8) Macrocytic anemia Code(s): D53.9 - NUTRITIONAL ANEMIA, UNSPECIFIED Status: Chronic (9) Seizure Code(s): R56.9 - UNSPECIFIED CONVULSIONS Status: Resolved - Plan * UTI with metabolic encephalopathy- resolved * Severe Anemia- likely due to direct bone marrow toxicity- her H&H has improved after transfusion * HTN- blood pressure is a bit better- continue Hydralazine * CAD- stable * Severe Malnutrition- continue nutritional and vitamin supplementation. * Severe deconditioning- continue PT/OT * Stable for transfer to alf
[2020-02-25 13:39] VITALS: BP 155/94; TEMP 99.2
--- NOTE | 2020-02-25 19:39 | DIS ---
DATE OF ADMISSION: 02/14/2020 DATE OF DISCHARGE: 02/25/2020 DISCHARGE DISPOSITION: [facility]. DISCHARGE DIAGNOSES: 1. Metabolic encephalopathy. 2. Urinary tract infection. 3. Alcohol abuse. 4. Pancytopenia secondary to alcohol abuse. 5. Hypertension. 6. Depression. 7. Possible pancreatic mass. DISCHARGE MEDICATIONS: 1. Thiamine 100 mg daily. 2. Lisinopril 2.5 mg daily. 3. Keppra 500 mg twice a day. 4. Tylenol No.3 q.4 hours as needed. 5. Sodium bicarbonate 650 mg p.o. daily. 6. Sertraline 50 mg daily. 7. Protonix 40 mg daily. 8. Folic acid 1 mg daily. 9. Carvedilol 25 mg twice daily. 10. Aspirin 81 mg a day. IMAGING DONE DURING THE HOSPITAL STAY: The patient had a CT scan of the brain showing no acute intracranial abnormalities. The patient had an EEG performed showing an occasional irregular theta activity, but it was a nonspecific posterior background. No epileptiform activity was seen. The patient had a repeat CT scan of the brain on 02/22/2020 due to a fall, which was negative. However, she did fracture her fifth metacarpal and this was seen on x-ray of the hand. HOSPITAL COURSE: Ms. Oconnell is a pleasant 69-year-old female, who was admitted to the hospital with altered mental status, weakness, and disorientation. She was found to have urinary tract infection and symptomatic anemia. She was transfused and was placed on antibiotics for the urinary tract infection. Urine culture eventually grew E coli, which was sensitive to cephalosporins, had intermediate sensitivity to fluoroquinolones. She was treated for this during her hospital stay. There was some question of whether or not she had suffered a seizure. For this reason, Neurology was consulted and EEG was performed. There was no evidence of any epileptiform activity even after withdrawal from Keppra. There was some concern that the dose of Keppra was making her drowsy, so it was cut back from a 1000 to 500 mg twice a day and the seizure activity is unclear whether or not she has true epilepsy versus alcohol withdrawal seizure, but it was felt in her best interest to keep her on some seizure medication for protection. She was extremely weak and had severe malnutrition and for this reason instead of being discharged home, it was felt best that she be transferred to an inpatient facility, so that she could get adequate care and then also Palliative Care as well. Job ID: [id number]
== END 2020-02-25 15:20 | DRG 871 ==
LOC: ERS 12:45 → 2NO 17:14
PROVIDERS: ADMIT Internal Medicine; ATTEND Internal Medicine
PROC: 30233N1 Transfusion of Nonautologous Red Blood Cells into Peripheral Vein, Percutaneous Approach (ICD-10-PCS; principal; 2020-02-14)
DX: A41.51 Sepsis due to Escherichia coli [E. coli] (principal); G93.41 Metabolic encephalopathy; K85.90 Acute pancreatitis without necrosis or infection, unspecified; E43 Unspecified severe protein-calorie malnutrition; N39.0 Urinary tract infection, site not specified; D61.818 Other pancytopenia; N17.9 Acute kidney failure, unspecified; K86.3 Pseudocyst of pancreas; Z68.1 Body mass index [BMI] 19.9 or less, adult; R64 Cachexia; K86.1 Other chronic pancreatitis; S62.397A Other fracture of fifth metacarpal bone, left hand, initial encounter for closed fracture; W19.XXXA Unspecified fall, initial encounter; Y92.239 Unspecified place in hospital as the place of occurrence of the external cause; F10.10 Alcohol abuse, uncomplicated; F32.9 Major depressive disorder, single episode, unspecified; K86.89 Other specified diseases of pancreas; E86.1 Hypovolemia; N18.3 Chronic kidney disease, stage 3 (moderate); F17.210 Nicotine dependence, cigarettes, uncomplicated; Z96.642 Presence of left artificial hip joint; G40.909 Epilepsy, unspecified, not intractable, without status epilepticus; D63.1 Anemia in chronic kidney disease; I12.9 Hypertensive chronic kidney disease with stage 1 through stage 4 chronic kidney disease, or unspecified chronic kidney disease; I25.10 Atherosclerotic heart disease of native coronary artery without angina pectoris; M79.605 Pain in left leg; Z91.041 Radiographic dye allergy status; Z79.899 Other long term (current) drug therapy; Z79.82 Long term (current) use of aspirin
CPT/HCPCS: 36415; 36416; 36430; 51701; 70450; 71045; 80048; 80053; 80061; 80306; 80307; 81003; 81015; 82274; 83540; 83550; 83605; 83690; 83880; 84484; 85025; 85610; 85730; 86850; 86900; 86901; 87040; 87077; 87086; 87186; 93005; 95712; 95715; 95819; 95957; 96361; 96365; 96366; 96367; J0692; J0696; J1650; J3370; J3480; J3490; P9016

== ENCOUNTER 2020-05-08 16:55 | Inpatient (IN) | payer MEDICARE, OTHER ==
--- NOTE | 2020-05-08 17:45 | RAD ---
EXAM: CHEST ONE VIEW HISTORY: Dyspnea. COMPARISON: 02/14/2020 FINDINGS: Cardiac silhouette is enlarged. There has been interval development of a right pleural effusion with interstitial and patchy parenchymal airspace opacities and right perihilar location and at the right lung base which could be related to associated pneumonia. Questionable small left pleural effus ion present. Vascular calcifications are seen in the thoracic aorta. Osteopenia is present. IMPRESSION: 1. Interval development of small bilateral pleural effusions greater on the right with fluid extendin g along the right lateral chest. 2. Increased interstitial and patchy opacities right perihilar region which may represent infectious process. Follow-up to resolution is recommended.
[2020-05-08 18:26] LABS: #Eosinphils 0.1 thou/uL (0.0-0.7); #Lymphocytes 0.4 thou/uL (1.20-3.40); #Monocytes 0.3 thou/uL (0.11-0.59); #Neutrophils 3.2 thou/uL (1.40-6.50); %Basophils 0.2 % (0.0-1.0); %Eosinophils 1.6 % (0.0-10.0); %Lymphocytes 9.3 % (21.0-51.0); %Monocytes 7.5 % (0.0-10.0); %Neutrophils 81.4 % (42.0-75.0); Hemoglobin 10.2 g/dL (12.0-16.0); Mean Corpuscular HGB CONC 31.9 g/dL (32.0-36.0); Mean Corpuscular Hemoglobin 32.4 pg (27.0-31.0); Mean Platelet Volume 8.1 fL (7.4-10.4); Platelet Count 182 thou/uL (130-400); RBC Distribution Width 16.9 % (11.5-14.5); Red Blood Cell (RBC) Count 3.17 mill/uL (4.20-5.40); White Blood Cell (WBC) Count 3.9 thou/uL (4.8-10.8)
[2020-05-08 18:47] LABS: ALT (SGPT) 7 U/L (8-55); AST (SGOT) 14 U/L (5-34); Albumin 3.4 g/dL (3.4-4.8); Alkaline Phosphatase 75 U/L (40-110); Anion Gap 19 mmol/L (10-20); BUN (Urea Nitrogen) 53 mg/dL (9.8-20.1); Bilirubin, Total 0.4 mg/dL (0.2-1.2); Calc. Creatinine Clearance 0 mL/min (70-130); Calcium 8.4 mg/dL (7.8-10.44); Carbon Dioxide 18 mmol/L (23-31); Chloride 108 mmol/L (98-107); Estimated GFR-MDRD 24; Globulin 3.2 g/dL (2.4-3.5); Glucose 95 mg/dL (80-115); Potassium 5.5 mmol/L (3.5-5.1); Protein, Total 6.6 g/dL (6.0-8.3); Sodium 139 mmol/L (136-145)
[2020-05-08] MEDS ORDERED: predniSONE 20 MG TAB ONE (18:53)
[2020-05-08] MEDS ORDERED: Albuterol 200 PUFF (6.7GM INHALER) ONE (19:10)
[2020-05-08 19:41] LABS: CKMB 2.1 ng/mL (0-6.6)
--- NOTE | 2020-05-08 20:05 | PDOC.FPRHP ---
- History of Present Illness Chief Complaint: SOB History of Present Illness: Pt is a 69yo female with a PMH of HFrEF, alcohol and tobacco abuse who presents with worsening SOB for 2 days. She lives at home with her mother who is her cleat feeder. She is a poor historian, stating that she had no history of heart failure. She drinks 10 shots of vodka a day, last drink was yesterday. C/o edema, orthopnea and PND. Denies fever, cough, N/V. Echo from May 2019 shows EF 20-25%. ED Course: Albuterol inhaler, Prednisone, Cefepime, Vancomycin, Was give fluid by EMS - Allergies/Adverse Reactions Allergies Allergy/AdvReac Type Severity Reaction Status Date / Time Gadolinium-Containing AdvReac Mild Emesis Verified 04/28/18 22:32 Contrast Medi - Home Medications Medication Instructions Recorded Confirmed Type Folic Acid [Folvite] 1 mg PO DAILY 08/28/19 02/14/20 History Sodium Bicarbonate 650 mg PO DAILY 08/28/19 02/14/20 History Aspirin [Ecotrin Low Strength] 81 mg PO DAILY 09/05/19 02/14/20 History Lisinopril [Zestril] 2.5 mg PO DAILY #30 tab 11/27/19 02/14/20 Rx Carvedilol [Coreg] 25 mg PO BID 02/14/20 02/14/20 History Pantoprazole [Protonix] 40 mg PO DAILY 02/14/20 02/14/20 History Sertraline HCl 50 mg PO DAILY 02/14/20 02/14/20 History Acetaminophen W/ Codeine 1 tab PO Q4H PRN tab 02/25/20 Rx [Acetaminophen/Codeine #3] Thiamine 100 mg PO DAILY tab 02/25/20 Rx levETIRAcetam [Keppra] 500 mg PO BID #60 tab 02/25/20 Rx - History Patient poor historian, some history obtained from old records PMHx: HTN, HFrEF, seizure disorder PSHx: left leg, hysterectomy FHx: Social: tobacco 50pack years, alcohol 10 shots of vodka daily, no drug use. Lives with mother who is her cleat feeder. - Review of Systems General: denies: fever/chills ENT: denies: nasal congestion Respiratory: reports: shortness of breath. denies: cough Cardiovascular: reports: edema, paroxysmal nocturnal dyspnea, orthopnea. denies: chest pain, palpitation Gastrointestinal: denies: nausea, vomiting Skin: reports: itching. denies: rashes Musculoskeletal: denies: pain, tenderness - Vital signs BP: 134/98, HR 71, O2 98% on 2L, T 98.2F - Physical Exam Constitutional: NAD HEENT: normocephalic and atraumatic, grossly normal vision, grossly normal hearing -Neck: JVD Chest: no-tender to palpation Heart: RRR, normal S1/S2, pulses present -Heart: pitting edema on back and right leg Lungs: CTAB, no respiratory distress, no rales/rhonchi, no wheezing -Abdomen: mild abdominal distention -Musculoskeletal: Right leg larger than left leg, non-tender to palpation, pitting edema around right knee, firm, mobile nodule felt on medial side of right knee Neurological: no focal deficit -Psychiatric: poor memory and insight FMR H&P: Results - Labs Result Diagrams: 05/08/20 18:10 05/08/20 18:10 Lab results: WBC 3.9 thou/uL (4.8-10.8) L 05/08/20 18:10 Hgb 10.2 g/dL (12.0-16.0) L 05/08/20 18:10 Hct 32.1 % (36.0-47.0) L 05/08/20 18:10 MCV 101.0 fL (78.0-98.0) H 05/08/20 18:10 Plt Count 182 thou/uL (130-400) 05/08/20 18:10 Neutrophils % 81.4 % (42.0-75.0) H 05/08/20 18:10 Sodium 139 mmol/L (136-145) 05/08/20 18:10 Potassium 5.5 mmol/L (3.5-5.1) H 05/08/20 18:10 Chloride 108 mmol/L (98-107) H 05/08/20 18:10 Carbon Dioxide 18 mmol/L (23-31) L 05/08/20 18:10 BUN 53 mg/dL (9.8-20.1) H 05/08/20 18:10 Creatinine 2.47 mg/dL (0.6-1.1) H 05/08/20 18:10 Glucose 95 mg/dL (80-115) 05/08/20 18:10 Calcium 8.4 mg/dL (7.8-10.44) 05/08/20 18:10 Total Bilirubin 0.4 mg/dL (0.2-1.2) 05/08/20 18:10 AST 14 U/L (5-34) 05/08/20 18:10 ALT 7 U/L (8-55) L 05/08/20 18:10 Alkaline Phosphatase 75 U/L (40-110) 05/08/20 18:10 CK-MB (CK-2) 2.1 ng/mL (0-6.6) 05/08/20 18:39 B-Natriuretic Peptide 5656.2 pg/mL (0-100) H 05/08/20 18:39 Serum Total Protein 6.6 g/dL (6.0-8.3) 05/08/20 18:10 Albumin 3.4 g/dL (3.4-4.8) 05/08/20 18:10 - EKG Interpretation EKG: reviewed, no ST changes, sinus rhythm FMR H&P: A/P - Plan #Acute hypoxic respiratory failure 2/2 CHF exacerbation -BNP 5656, trop 0.074, WBC 3.9, COVID neg, CXR: bilat pleural effusion -PE: JVD, pitting edema -40mg lasix IV daily -daily weight, strict I/Os, fluid restrict -wean O2 as tolerated -pending echo -abx given in ED, did not continue them, pending procal, consider starting abx if elevated -continue home meds: ASA, lisinopril, carvedilol #Edema of right leg -PE: firm, mobile mass located medially, non-tender -pending XR of right knee -pending bilat venous doppler to r/o DVT, if positive, consider further workup for PE #HORTENCIA on CKD -Cr 2.4, was 1.8 on 02/23 -lasix started, continue to monitor #Hyperkalemia - K 5.5,no ekg changes - started on lasix, will likely decrease, continue to monitor #alcohol abuse -ASE protocol, ativan prn, librium taper -thiamine #tobacco abuse -nicotine patch -encourage cessation #macrocytic anemia -Hb 10.2, MCV 101 -started multivitamin #HTN -continue home meds #Seizure disorder -continue home meds #Depression -continue home meds Code: full PCP: Eva Thapa IVF: SL Diet: HH with fluid restrict Dispo: Admit inpatient tele, stable, LOS>48hrs FMR H&P: Upper Level - Plan Date/Time: 05/08/202003 Ms Oconnell is a 69yo female with pmh of HFrEF, alcohol abuse and seizure disorder presents with SOB of 2 days duration. Also reports orthopnea, paroxysmal nocturnal dyspnea. Uses wheelchair for ambulation but reports dyspnea with activity. Endorses abdominal edema. Denies fever, chest pain. PE: General: NAD Neck: JVD present CV: RRR, no murmurs Pulm: CTA Abdomen: Nontender Extremities: R>L LE 2+ pitting edema. Right popliteal fossa edema. Nontender. Possible right knee effusion. A/P: Acute hypoxic respiratory failure 2/2 HFrEF exacerbation -Hypoxic with EMS, now 99% on 2L. CXR with b/l pleural effusions. JVD on exam with dependent back and LE edema. Pt reports abdominal swelling. BNP 5656. Trop 0.074. In ER received Cefepime and Vanc for concern for pneumonia. Rapid COVID negative. Also received prednisone and Proventil in ED. Will continue Duonebs PRN. Low suspicion for infection, will check procal prior to continuing antibiotics. Ordered 40mg IV Lasix. Will monitor urine output and adjust accordingly. Strict I&Os. Last echo 05/2019 with EF 20%, ordered echo for AM. Admit to tele. Consider D-dimer after Right knee imaging and LE US result. R>L LE edema -Ordered right knee xray and LE US to eval for DVT. NSTEMI type 2 -2/2 to heart strain from HFrEF exacerbation and fluid overload. Continue to trend trops. Monitor on tele. Currently chest pain free. EKG with no signs of acute ischemia Alcohol Use Disorder -Hx of withdrawal. Last drink yesterday. Drinks 10 shots of vodka per day. Ordered ASE protocol with Ativan PRN. Will start Librium. HORTENCIA on CKD -Monitor renal function, possibly cardiorenal. Received IVF in route. Now giving Lasix. Hyperkalemia -Continue to monitor, giving Lasix 40mg IV. I, Franchesca Beverly, have evaluated this patient and agree with findings/plan as outlined by medical intern resident. Pertinent changes/additions are listed here.
[2020-05-08] MEDS ORDERED: Cefepime 2 GM VIAL ONE (20:35)
[2020-05-08 20:44] LABS: SARS-CoV-2 NAA Rapid Test Not Detected (NotDetected)
[2020-05-08] MEDS ORDERED: Ondansetron PF 4 MG/2 ML Vial IVP PRN (20:53)
[2020-05-08] MEDS ORDERED: Ondansetron ODT 4 MG TAB PO PRN (20:53)
[2020-05-08] MEDS ORDERED: Acetaminophen 325 MG TAB PO PRN (20:53)
[2020-05-08] MEDS ORDERED: Lorazepam 2 MG/ML VIAL SLOW IVP PRN (21:12)
--- NOTE | 2020-05-08 21:15 | RAD ---
XR Hip Rt 2-3 View History: Pain. Fall Comparison: None. Findings: No acute displaced fracture or malalignment. Obturator ring is intact. Small acetabular ost eophyte formation. Severe vascular calcifications. Phleboliths in the pelvis. Impression: No acute displaced fracture or malalignment. If the patient is acutely unable to bear yash ght, CT would be recommended.
--- NOTE | 2020-05-08 21:16 | RAD ---
XR Knee Rt 4 View STANDARD History: Pain Comparison: None. Findings: No significant joint effusion. Old proximal fibular fracture. Since the vascular calcificat ions. Large lateral compartment osteophytes. Moderate lateral soft tissue swelling. Impression: 1. Lateral soft tissue swelling without acute displaced fracture or malalignment. 2. Advanced tricompartment degenerative change. 3. Old proximal fibular fracture.
[2020-05-08] MEDS ORDERED: Vancomycin 1 GM/200 ML BAG ONE (22:02)
[2020-05-08] MEDS ORDERED: Furosemide 40 MG/4 ML VIAL ONE (22:02)
[2020-05-08 22:23] LABS: Troponin I 0.058 ng/mL (< 0.028)
--- NOTE | 2020-05-08 22:41 | ULT ---
US Venous Doppler Bilat History: Shortness of breath. Lower extremity swelling Comparison: Ultrasound study 2017 Findings: Real-time grayscale, color and spectral analysis of the bilateral lower extremity venous sy stem was performed. The common femoral, femoral, proximal portions greater saphenous and deep femoral veins as well as the popliteal posterior tibial veins were interrogated. Moderate superficial and deep soft tissue edema. Normal flow, augmentation and compression. Extensive vascular calcifications. Impression: No deep venous thrombosis.
[2020-05-08 23:17] VITALS: BMI 22.1
[2020-05-08] MEDS: chlordiazePOXIDE HCl 25 MG CAP PO SCH (23:33)
[2020-05-08] MEDS: Nicotine 14 MG PATCH TD SCH (23:34)
[2020-05-09 01:46] LABS: Troponin I 0.064 ng/mL (< 0.028)
[2020-05-09] MEDS: chlordiazePOXIDE HCl 25 MG CAP PO SCH ×3 (04:26→17:16)
[2020-05-09 05:06] LABS: ALT (SGPT) Less than 7 U/L (8-55); AST (SGOT) 12 U/L (5-34); Albumin 3.5 g/dL (3.4-4.8); Alkaline Phosphatase 73 U/L (40-110); Anion Gap 18 mmol/L (10-20); BUN (Urea Nitrogen) 55 mg/dL (9.8-20.1); Bilirubin, Total 0.4 mg/dL (0.2-1.2); Calc. Creatinine Clearance 21 mL/min (70-130); Calcium 8.6 mg/dL (7.8-10.44); Carbon Dioxide 19 mmol/L (23-31); Chloride 107 mmol/L (98-107); Estimated GFR-MDRD 23; Globulin 3.3 g/dL (2.4-3.5); Glucose 113 mg/dL (80-115); Potassium 5.8 mmol/L (3.5-5.1); Protein, Total 6.8 g/dL (6.0-8.3); Sodium 138 mmol/L (136-145)
--- NOTE | 2020-05-09 05:54 | PDOC.FM ---
- Subjective Subjective: Patient resting in bed this morning. Very somnolent, even with sternal rub will only awaken for a brief time and fall back asleep. With multiple tries, was able to have patient wake up for multiple short bursts to answer her name, where she is and what year it is. Unable to assess if she has any complaints this AM. - Objective MAR Reviewed: Yes Vital Signs & Weight: Vital Signs (12 hours) Temp Pulse Resp BP BP Pulse Ox 05/09/20 04:14 145/79 H 05/09/20 04:00 98.3 F 67 15 145/79 H 92 L 05/09/20 00:00 71 05/08/20 22:50 97.6 F 73 16 148/78 H 148/75 H 97 Weight Weight 62.097 kg I&O: 05/07/20 05/08/20 05/09/20 06:59 06:59 06:59 Intake Total 240 Output Total 125 Balance 115 Result Diagrams: 05/08/20 18:10 05/09/20 04:11 Phys Exam - Physical Examination Constitutional: NAD HEENT: moist MMs Neck: supple JVD crakles bilaterally, on 2L O2 Cardiovascular: RRR, no significant murmur Gastrointestinal: soft, no distention Musculoskeletal: pulses present, edema present right LE edema up to the thigh Deviation from normal: somnolent Skin: no rash Dx/Plan - Plan Plan: #Acute hypoxic respiratory failure 2/2 CHF exacerbation -BNP 5656, trop 0.074, WBC 3.9, COVID neg, CXR: bilat pleural effusion -PE: JVD, pitting edema -40mg lasix IV daily scheduled starting 05/10 -patient is somnolent this AM, ABG was done showing pH 7.17, CO2 60, pAO2 73 Bicarb 21, transferred to CCU -was on 2L this morning, currently on BiPAP 2/2 acidic pH on ABG and retaining CO2 -40mg Lasix BID today as potassium is high and patient is very fluid overloaded on exam -daily weight, strict I/Os, fluid restrict -pending echo -abx given in ED, procal neg, no signs of infection at this time -continue home meds: ASA, lisinopril, carvedilol #Edema of right leg -PE: firm, mobile mass located medially, non-tender -XR of right knee showed soft tissue swelling -bilat venous doppler neg for DVT #HORTENCIA on CKD -Cr 2.4 on admission, was 1.8 on 02/23 -Fluid overloaded, hx of HF; lasix started -continue to monitor #Hyperkalemia - K 5.5 on admission,no ekg changes - started on lasix, 40mg Lasix BID today as potassium is high and patient is very fluid overloaded on exam. Resume 40 daily tomorrow 05/10 - Follow up BMP at 1300 - will hold lisinopril - continue to monitor #alcohol abuse -ASE protocol, ativan prn, librium taper -thiamine -last drink 05/07, no desire to cut back or stop #tobacco abuse -nicotine patch -encourage cessation #macrocytic anemia -Hb 10.2, MCV 101 -started multivitamin #HTN -continue home meds #Seizure disorder -continue home meds #Depression -continue home meds Code: full PCP: Eva Thapa IVF: SL Diet: HH with fluid restrict Dispo: inpatient, anticipated LOS>48hrs
[2020-05-09 07:56] LABS: Actual Bicarbonate (HCO3a) 21.6 mEq/L (22-28); Base Excess (BEa) -7.3 mEq/L (-2.0 to +3.0); Calcium, Ionized (arterial) 1.24 mmol/L (1.12-1.30); Carboxyhemoglobin (COHb) 1.5 gm% (0.0-3.0); Hemoglobin (Hb) 11.3 g/dL (12.0-16.0); O2 Tension (PaO2), arterial 73.6 mmHg (> 80.0); Potassium - ABG Lab 5.52 mmol/L (3.70-5.30)
[2020-05-09] MEDS ORDERED: Furosemide 40 MG/4 ML VIAL SLOW IVP SCH ×3 (08:15→17:00)
[2020-05-09 08:31] LABS: pH, Arterial 7.17 (7.35-7.45)
[2020-05-09 08:32] LABS: ALV-art Gradient 50.415 mmHg (0-20); CO2 Tension 60.5 mmHg (35.0-45.0); Puncture Site LBA
[2020-05-09 08:58] LABS: Troponin I 0.048 ng/mL (< 0.028)
[2020-05-09] MEDS ORDERED: Thiamine 100 MG TAB PO SCH (09:00)
[2020-05-09] MEDS ORDERED: Non-Formulary Item 1 EACH (Sertraline Hcl [Sertraline Hcl] 50 MG Tablet) PO SCH (09:00)
[2020-05-09] MEDS: Aspirin 81 mg Enteric Coated Tablet PO SCH (09:42)
[2020-05-09] MEDS: levETIRAcetam 500 MG TAB PO SCH ×2 (09:42→20:40)
[2020-05-09] MEDS: Enoxaparin Sodium 30 MG/0.3 ML SYRINGE SC SCH (09:43)
[2020-05-09] MEDS: Thiamine 100 MG TAB PO SCH (09:55)
[2020-05-09] MEDS: Carvedilol 25 MG TAB PO SCH ×2 (09:55→20:40)
[2020-05-09] MEDS: Folic Acid 1 MG TAB PO SCH (09:55)
[2020-05-09] MEDS: Multivitamin W/ Minerals 1 TAB PO SCH (09:56)
[2020-05-09] MEDS: Ferrous Sulfate 325 MG TAB PO SCH (09:56)
--- NOTE | 2020-05-09 11:03 | HP ---
Please see the history and physical done by Dr. Allison, for which I agree. The patient was seen, evaluated, discussed, and examined with the residents by bedside. HISTORY OF PRESENT ILLNESS: This is a 69-year-old female with past medical history of heart failure with an ejection fraction of 20% to 25% based on an echo in May. The patient did not actually know she had a heart failure, which comes in with worsening respiratory issues of increasing shortness of breath, some edema or orthopnea. Denies fever or cough. She was not diuresed in the ER. We just started diuretics after it was obvious that she was in heart failure. ALLERGIES: ALL PER DR. ALLISON'S HISTORY AND PHYSICAL. HOME MEDICATIONS: All per Dr. Allison's history and physical. PAST MEDICAL HISTORY: Per Dr. Allison's history and physical. PAST SURGICAL HISTORY: Per Dr. Allison's history and physical. FAMILY HISTORY: Per Dr. Allison's history and physical. SOCIAL HISTORY: Per Dr. Allison's history and physical. Very significant for the fact that she is an alcoholic and a smoker. REVIEW OF SYSTEMS: Per Dr. lAlison's history and physical. PHYSICAL EXAMINATION: GENERAL: When I saw her, she was obtunded overnight. She worsened. VITAL SIGNS: Pulse rate in the 40s to 50s. Would wake up and follow some commands, but very lethargic. Respiratory rate seemed to be a little bit depressed around 12. ENT: Conjunctivae not pale. CHEST: Scattered crackles. CARDIAC: Regular rate and rhythm. ABDOMEN: Benign. EXTREMITIES: Trace to 1+ pitting edema. LABORATORY DATA: Significant for a slightly low hemoglobin at 10.2. Bicarb is a little bit low at 18, potassium slightly high at 5.5, creatinine high at 2.4. BNP extremely elevated at 5600. ASSESSMENT: 1. CHF exacerbation. Plan is to give her IV Lasix. Monitor respiratory status closely. Of note, overnight she did decompensate and it seems like she probably had a component of COPD and the oxygen and decreased respiratory drive made her hypercapnic, so she has actually been moved to the unit for BiPAP. 2. Chronic anemia. 3. Edema DVT, rule out with a doppler ultrasound. 4. Elevated creatinine, acute on chronic kidney disease. 5. Hyperkalemia as above. The Lasix should help. 6. Alcohol abuse, however, on ADRIANA protocol. 7. Tobacco abuse, counseled. Job ID: [id number]
--- NOTE | 2020-05-09 11:18 | PRG ---
DATE OF SERVICE: 05/09/2020 The patient was seen, evaluated, discussed, and examined with the residents by bedside. Please see Dr. Robert's note for which I agree. This morning, the patient was not doing well, just very obtunded, so ABG was done which showed a pH of 7.19, pCO2 is up in the 70s, so a code green was called. BiPAP was ordered and was sent down to the unit. Pulmonary was consulted. She did wake up a little bit for me and was following commands. We do not have the best diuresis, so we would place a Moses to better evaluate that. So, she still sounds fairly wet. So, I think really ultimately she has probably CHF and COPD and the extra oxygen we gave her for the CHF exacerbation made her retain pCO2, but is currently stable in the ICU when re-evaluated and we are just starting the BiPAP. Job ID: [id number]
[2020-05-09 11:56] LABS: Actual Bicarbonate (HCO3a) 22.6 mEq/L (22-28); Base Excess (BEa) -5.7 mEq/L (-2.0 to +3.0); Calcium, Ionized (arterial) 1.23 mmol/L (1.12-1.30); Carboxyhemoglobin (COHb) 1.4 gm% (0.0-3.0); Hemoglobin (Hb) 11.3 g/dL (12.0-16.0); O2 Tension (PaO2), arterial 74.7 mmHg (> 80.0); Potassium - ABG Lab 5.44 mmol/L (3.70-5.30)
[2020-05-09 11:58] LABS: Amphetamine Not Detected (NotDetected); Barbiturates Screen Not Detected (NotDetected); Benzodiazepine Screen Not Detected (NotDetected); Cocaine Metabolite Screen Not Detected (NotDetected); Medtox Control Line Valid? VALID (VALID); Medtox Reader # READER 4; Methadone Not Detected (NotDetected); Methamphetamine Not Detected (NotDetected); Opiate Screen Not Detected (NotDetected); Oxycodone Screen Not Detected (NotDetected); Phencyclidine (PCP) Not Detected (NotDetected); THC/Cannabinoid Screen Not Detected (NotDetected); Tricyclic Screen Not Detected (NotDetected)
[2020-05-09 12:00] LABS: Puncture Site RRA; pH, Arterial 7.21 (7.35-7.45)
[2020-05-09 13:43] LABS: Anion Gap 21 mmol/L (10-20); BUN (Urea Nitrogen) 57 mg/dL (9.8-20.1); Calc. Creatinine Clearance 21 mL/min (70-130); Calcium 8.3 mg/dL (7.8-10.44); Carbon Dioxide 14 mmol/L (23-31); Chloride 111 mmol/L (98-107); Estimated GFR-MDRD 23; Glucose 96 mg/dL (80-115); Potassium 6.4 mmol/L (3.5-5.1); Sodium 140 mmol/L (136-145)
[2020-05-09] MEDS ORDERED: Dextrose 50% Abboject 50 ML SYRINGE SLOW IVP SCH (15:00)
[2020-05-09] MEDS ORDERED: Insulin Regular 300 UNITS/3 ML VIAL SC SCH (15:00)
[2020-05-09] MEDS ORDERED: Calcium Gluconate 9.2 MEQ in Sodium Chloride 0.9% 100 ML IVPB SCH (15:15)
[2020-05-09 16:35] LABS: Fluid, pH - Pleural Fld 7.31 (7.60 - 7.66)
--- NOTE | 2020-05-09 17:08 | RAD ---
XR Chest 1 View History: Postthoracentesis evaluation Comparison: Radiograph prior day Findings: Interval size decrease right layering pleural effusion. No significant pneumothorax is appr eciated. Impression: No pneumothorax post thoracentesis with decreased right pleural fluid.
[2020-05-09 17:21] LABS: RBC Count-Automated (BF) 23527 /cu.mm; WBC/Nucleated-Auto (BF) 440 uL
[2020-05-09 17:23] LABS: Anion Gap 16 mmol/L (10-20); BUN (Urea Nitrogen) 58 mg/dL (9.8-20.1); Calc. Creatinine Clearance 21 mL/min (70-130); Carbon Dioxide 21 mmol/L (23-31); Chloride 107 mmol/L (98-107); Estimated GFR-MDRD 23; Glucose 133 mg/dL (80-115); Potassium 5.2 mmol/L (3.5-5.1); Sodium 139 mmol/L (136-145)
[2020-05-09 17:49] LABS: Body Fluid Source Pleural Fluid
[2020-05-09 17:50] LABS: BF Color Red; Clarity Cloudy/Turbid (Clear); Tube # 2
[2020-05-09 17:53] LABS: BF Segmented Neutrophils 13 %; Cell Count Non Hematic 67 %; Lymphocytes 18 %
--- NOTE | 2020-05-09 20:36 | CON ---
DATE OF CONSULTATION: 05/09/2020 CHIEF COMPLAINT: Respiratory difficulty. HISTORY OF PRESENT ILLNESS: Ms. Oconnell is a 69-year-old female who has a history of heart failure with a known ejection fraction of approximately 20 to 25%. She additionally has a history of alcohol and tobacco abuse and presents to the hospital with increasing shortness of breath over several-day period of time. The patient is a somewhat difficult historian, but denies fevers or chills. She denies any cough, sputum, or hemoptysis. In the emergency room, she had evidence of an abnormal chest x-ray with density over the right hemithorax relative to the left and evidence of bilateral effusion. This was initially present secondary to heart failure and she was admitted to the hospital for diuresis. She received antibiotic therapy in the emergency room with cefepime and vancomycin. COVID test was negative. Over the night, the patient developed decreased level of consciousness and her blood gas showed a mild metabolic and moderately severe respiratory acidosis. Whether this was related to hypoxic respiratory suppression or other cause was unclear. The patient was subsequently transferred to the intensive care unit and Pulmonary Service is consulted. She is currently receiving BiPAP for ventilatory support. She was hypothermic and is on a warming blanket. Antibiotic was not continued after initial emergency room administration. It is difficult to get further history from the patient due to her CPAP mask. SOCIAL HISTORY: The patient has alcohol and tobacco history. She lives with extended family. She is nonambulatory and gets about via wheelchair. HOME MEDICATIONS: Include; 1. Folic acid daily. 2. Bicarb tablets daily. 3. Aspirin 81 daily. 4. Lisinopril 2.5 daily. 5. Coreg 25 mg b.i.d. 6. Protonix 40 daily. 7. Sertraline 50 daily. 8. Tylenol with Codeine p.r.n. 9. Thiamine daily. 10. Keppra 500 b.i.d. PAST HISTORY: Remarkable for longstanding tobacco history of greater than 50 years. She has a known cardiomyopathy with ejection fraction in the 20% to 25% range. ALLERGIES: SHE HAS ALLERGIC REACTION TO GADOLINIUM. FAMILY HISTORY: Noncontributory. REVIEW OF SYSTEMS: As above, but otherwise difficult to obtain. PHYSICAL EXAMINATION: VITAL SIGNS: Blood pressure 131/79, pulse ox is 96%, although on BiPAP. Respiratory rate is 12. GENERAL: She is a 69-year-old female who appears older than her stated age. She is on BiPAP. She is quite thin with a weight of 136 and BMI of 22. She is awake and answers questions appropriately, although challenge due to the mask. HEENT: She has arcus senilis. She has no icterus. Her oropharynx cannot be evaluated due to a CPAP mask at 30 degrees. NECK: I do not see any JVD. LUNGS: Show rhonchi, but no wheezing. She does have a shallow respiratory pattern. HEART: Regular rate and rhythm. ABDOMEN: Soft. She has pitting edema of the right side of her body, presumably from being in a dependent position of right lateral decubitus. She has pitting brawny edema of the right arm, breast, abdominal wall, thigh and lower leg. LABORATORY DATA: Blood gas on BiPAP includes pH 7.2, CO2 of 58, PO2 of 74, and bicarbonate of 22. This is slightly improved compared to initial blood gas of 7.17. Electrolytes include sodium 140, potassium 6.4, chloride 111, CO2 is 14. BUN 57, creatinine is 2.57. Her liver tests on admission were negative. Her drug screen on admission was negative. White count on admission was 3.9 with hemoglobin of 10.2 and platelet count of 182,000. She has macrocytic indices with high RDW. This is suggestive of an iron deficiency. Chest x-ray shows haziness in the right hemithorax with fluid laterally in the costophrenic angle and against the chest wall consistent with at least a moderate-sized pleural effusion, although this is new compared to the previous chest x-ray. IMPRESSION: 1. Increasing shortness of breath. The patient has significant effusion on the right. She has a known cardiomyopathy and this is presumably due to her underlying heart failure although secondary considerations would include a parapneumonic effusion from underlying pneumonia/empyema versus malignancy. Malignancy would seem much less likely since her x-ray showed no evidence of mass effect fairly recently. Pulmonary embolus and infarction are also within the differential. 2. Known cardiomyopathy. 3. Metabolic acidosis. 4. General debility. PLAN: Thoracentesis is done for both diagnostic and therapeutic indications. Depending on radiographic findings, she might ultimately require a bronchoscopy. She is not currently receiving antibiotics and again decision regarding initiating them would be based on pleural fluid findings. She is continued on BiPAP and attempt at diuresis. There was no indication that she needs intubation and mechanical support at this moment. Thank you for this interesting and challenging consultation. Pulmonary Service will continue to follow. Job ID: [id number]
[2020-05-09] MEDS: Nicotine 14 MG PATCH TD SCH (20:41)
[2020-05-09] MEDS ORDERED: Haloperidol Lactate 5 MG/ML VIAL IM SCH (21:00)
[2020-05-09] MEDS ORDERED: chlordiazePOXIDE HCl 25 MG CAP PO SCH (22:00)
[2020-05-10 07:26] LABS: Anion Gap 17 mmol/L (10-20); BUN (Urea Nitrogen) 58 mg/dL (9.8-20.1); Calc. Creatinine Clearance 20 mL/min (70-130); Calcium 8.5 mg/dL (7.8-10.44); Carbon Dioxide 19 mmol/L (23-31); Chloride 108 mmol/L (98-107); Estimated GFR-MDRD 22; Glucose 96 mg/dL (80-115); Potassium 4.9 mmol/L (3.5-5.1); Sodium 139 mmol/L (136-145)
--- NOTE | 2020-05-10 07:48 | OP ---
DATE OF PROCEDURE: 05/09/2020 PROCEDURE: Ultrasound-guided thoracentesis, right. PREOPERATIVE DIAGNOSIS: Right pleural effusion. POSTOPERATIVE DIAGNOSIS: Right pleural effusion. DESCRIPTION OF PROCEDURE: Following informed verbal consent, which was obtained from the patient, she was prepped and draped in the usual fashion. The procedure was performed with her supine in bed with the head elevated approximately 30 degrees. In the posterior axillary line the pleural fluid was identified using sonography and the site was marked. Following topical anesthesia, a thoracentesis catheter was inserted without difficulty. Approximately 1500 mL of serosanguineous fluid was aspirated without difficulty. The patient noted subjective improvement. Catheter was removed and postprocedure x-ray has been requested. Fluid will be sent for appropriate analysis. Job ID: [id number]
--- NOTE | 2020-05-10 08:06 | PDOC.FM ---
- Subjective Subjective: Overnight patient had increased somnolence, worsened ABG, and became hypothermic to 96.2 F. Janet eric was called and patient transferred to ICU and placed on BiPAP and under warming device. Thoracentesis performed by Zaria; devon off 1.5 L of serosanguinous fluid. This AM, patient is AxO x3. Denies pain. Her last alcoholic drink was 11:00 AM on day prior to admission. She is eating ice chips without difficulty this morning. - Objective MAR Reviewed: Yes Vital Signs & Weight: Vital Signs (12 hours) Temp Pulse Pulse Ox 05/10/20 07:26 96 05/10/20 07:00 98.5 F 05/10/20 02:38 71 05/10/20 00:00 98.2 F 05/09/20 22:30 73 Weight Weight 61.2 kg Most Recent Monitor Data Heart Rate from ECG 77 NIBP 128/84 NIBP BP-Mean 98 Respiration from ECG 18 SpO2 97 I&O: 05/09/20 05/10/20 05/11/20 06:59 06:59 06:59 Intake Total 240 601 0 Output Total 125 1595 30 Balance 115 -994 -30 Result Diagrams: 05/08/20 18:10 05/10/20 06:51 Phys Exam - Physical Examination Constitutional: NAD HEENT: PERRLA, sclera anicteric Neck: no JVD Respiratory: no wheezing on 1L NC Cardiovascular: RRR, no significant murmur Gastrointestinal: soft, non-tender, no distention Musculoskeletal: edema present (3+ pitting edema bilaterally) Neurological: non-focal Psychiatric: normal affect, A&O x 3 Skin: no rash Dx/Plan - Plan Plan: 69 yo F admitted for trouble breathing: Neuro: Acute encephalopathy, resolved Seizure disorder - now AxO x3 - continue home keppra Resp: Acute hypoxic respiratory failure 2/2 HFrEF exacerbation Tobacco abuse - COVID neg - CXR: bilateral pleural effusion - Right thoracentesis 05/09: transudative effusion - nicotine patch CV: HFrEF Pericardial effusion HTN - daily weight, strict I/Os, fluid restrict - consult CV surg for Pericardial effusion this AM. - continue lasix 40mg PO BID Renal: HORTENCIA on CKD Hyperkalemia -Cr 2.4 on admission, was 1.8 on 02/23 -possibly worsening CKD -consult Nephro this AM. -ordering urine studies this morning, suspected prerenal worsening 2/2 CHF, but may be intrinsic also -Fluid overloaded, hx of HF; lasix started -continue to monitor -hold home lisinopril GI: Diet: Heart Healthy Heme/ID: Macrocytic anemia - on multivitamin Psych: Depression Hx of Alcohol abuse - ASE protocol, ativan prn, librium taper, thiamine - continue home meds Code: Full PCP: Eva Thapa IVF: SL Dispo: inpatient, anticipated LOS>48hrs Addendum - Attending - Attending Attestation Date/Time: 05/10/20 [id number] I personally evaluated the patient and discussed the management with Dr. Garcia. I agree with the History, Examination, Assessment and Plan documented above with any addition or exceptions noted below.
[2020-05-10] MEDS: Aspirin 81 mg Enteric Coated Tablet PO SCH (08:19)
[2020-05-10] MEDS: Carvedilol 25 MG TAB PO SCH ×2 (08:19→20:30)
[2020-05-10] MEDS: Ferrous Sulfate 325 MG TAB PO SCH (08:19)
[2020-05-10] MEDS: Enoxaparin Sodium 30 MG/0.3 ML SYRINGE SC SCH (08:19)
[2020-05-10] MEDS: Multivitamin W/ Minerals 1 TAB PO SCH (08:20)
[2020-05-10] MEDS: levETIRAcetam 500 MG TAB PO SCH ×2 (08:21→20:30)
[2020-05-10] MEDS: Thiamine 100 MG TAB PO SCH (08:22)
[2020-05-10] MEDS: Folic Acid 1 MG TAB PO SCH (08:22)
[2020-05-10] MEDS: Furosemide 20 MG TAB PO SCH ×2 (09:02→13:34)
[2020-05-10 09:54] LABS: Bacteria/HPF 1+ HPF (None Seen); Bilirubin Negative (Negative); Blood, Urine Trace (Negative); Clarity Clear (Clear); Glucose, Urine (Dipstick) Normal (Negative); Ketone, Urine Negative (Negative); Leukocyte 75 Leu/uL (Negative); Nitrite Negative (Negative); Protein, Urine (Dipstick) Negative (Neg-Trace); Specific Gravity, Urine 1.007 (1.002-1.036); Squamous Epithelial 0-3 HPF (0-3); Urobilinogen Normal mg/dL (Less than 2); WBC/HPF 0-3 HPF (0-3)
[2020-05-10 09:55] LABS: Urine Culture Reflex Yes Yes
--- NOTE | 2020-05-10 10:21 | PRG ---
DATE OF SERVICE: 05/10/2020 SUBJECTIVE: This morning, she is awake, alert, responsive. 50 to 100 mL was removed from the right chest, appears to be a transudate. OBJECTIVE: VITAL SIGNS: Sats 90% on 2 L, pulse 77, blood pressure 140/80, respiratory rate 18. GENERAL: She is awake, responsive. CHEST: Decreased breath sounds. No wheezing. CARDIAC: Normal S1, S2. No masses. LABORATORY DATA: Lytes are normal. Creatinine 2.6, BUN 58. Chemistry profile otherwise unremarkable. She had a blood gas done, which showed a pO2 of 77, pCO2 . White count 3000, H and H 10/32, platelet count 182. ASSESSMENT: Respiratory failure, seizure disorders, chronic pancreatitis, pleural effusion, congestive heart failure, ejection fraction 35%. PLAN: Pulmonary kim, she appears to be stable. She can probably be transferred out of the ICU to medical floor. Continue close observation. Continue neb treatments, supportive care. Refrain from smoking. Job ID: [id number]
--- NOTE | 2020-05-10 12:42 | CON ---
DATE OF CONSULTATION: 05/10/2020 REQUESTING PHYSICIAN: Dr. Cherie Garcia CHIEF COMPLAINT: Shortness of breath. HISTORY OF PRESENT ILLNESS: The patient is a 69-year-old woman with 9 hospitalizations in the last year. She has a known cardiomyopathy, seizure disorder, and abuse of alcohol and tobacco. She presented with worsening shortness of breath over the previous day or 2 and had tremendous relief with drainage of about a liter and a half of fluid from her right chest by thoracentesis. A screening echocardiogram reported a moderate-size pericardial effusion and Cardiothoracic Surgery's input was requested by the primary care team. PAST MEDICAL HISTORY: As above. HOME MEDICATIONS: 1. Baby aspirin. 2. Keppra 500 mg b.i.d. 3. Coreg 25 mg b.i.d. 4. Lisinopril 2.5 mg a day. 5. Protonix 40 mg a day. 6. Zoloft 50 mg a day. 7. Folate 1 mg a day. 8. Thiamin 100 mg a day. 9. P.r.n. Tylenol No. 3. 10. Sodium bicarbonate 650 mg a day. ALLERGIES: SHE REPORTS EMESIS WITH MRI CONTRAST. SOCIAL HISTORY: She has about [id number] history of smoking and estimates that she has 10 shots of vodka a day, and she lives with her mother who is her recreation instructor. REVIEW OF SYSTEMS: Negative for any fever. Negative for any chest pain. Negative for any dependent edema. PHYSICAL EXAMINATION: GENERAL: She is comfortable and in no distress. VITAL SIGNS: She is 5 feet and 6 inches, and 135 pounds. Heart rate is in the 75 to 80 range. Blood pressure 130 to 140 over 80 to 100. She had about 1600 mL of urine yesterday after having received a dose of IV Lasix (but EMS administered a liter of IV fluid in route thinking that she fit into a sepsis protocol, they called for a fluid bolus of that magnitude). She had about a liter and a half of pleural fluid tapped. Her weight today is roughly 2 pounds less than it was on admission. NECK: She has about 2 to 3 fingerbreadths JVD. LUNGS: Clear breath sounds. HEART: No obvious gallop. ABDOMEN: Soft and nontender. EXTREMITIES: She has no ankle edema. Her right dorsalis pedis pulse is palpable, her left is not. LABORATORY DATA: Her white count is 3.9, hemoglobin 10.2, hematocrit 32.1, platelets 182,000, MCV 101.0. Her potassium was 5.5 on admission with BUN of 53 and creatinine 2.47, and a BNP of 5656.2. Her followup potassium yesterday morning was 5.8 with a BUN of 55 and creatinine of 2.56, and her potassium peaked at 6.4 yesterday afternoon. This morning, it is 4.9 with a BUN of 58 and creatinine of 2.66. Her initial chest x-ray showed a large right pleural effusion. Her post thoracentesis film showed good drainage of the chest with cardiomegaly and a cardiac silhouette that was not particularly suggestive of an effusion. Her echocardiogram by report described an EF of 30% to 35% and a moderate pericardial effusion. Year ago, an echocardiogram was reported an EF of 20% to 25%, no mention was made of a pericardial effusion. I was not able to access the pictures of the year old echocardiogram. This recent echocardiogram, some of the views, I would consider that estimate of EF being a little bit generous, although other views were more in keeping with the reported EF of 30% to 35%, the effusion is not particularly large, it is mainly dependent, it is not particularly large, probably about a centimeter. It is not surrounding the heart. There is no right atrial or right ventricular collapse associated with it, and the hepatic veins, though somewhat distended, do fluctuate in size with inspiration. IMPRESSION AND RECOMMENDATIONS: I think that this effusion is actually relatively small, given the patient's chronic congestive heart failure and there will be no particular indication to drain it. Job ID: [id number] [facility]
--- NOTE | 2020-05-10 14:27 | CON ---
DATE OF CONSULTATION: 05/10/2020 REASON FOR CONSULTATION: Acute on chronic kidney disease. REQUESTING PHYSICIAN: Cherie Garcia MD. CHIEF COMPLAINT: Worsening shortness of breath and edema. HISTORY OF PRESENT ILLNESS: A 69-year-old female with known history of chronic kidney disease, seizure disorder, chronic alcohol abuse, associated with cardiomyopathy and hypertension amongst others, who was admitted on May 08 due to worsening shortness of breath and edema. The patient was initiated on diuretic therapy for acute on chronic heart failure with improvement. She also had right-sided thoracentesis. Of note, respiratory status has improved such that the patient is currently on room air. On presentation, she had required noninvasive respiratory support. The patient also was noted to have hyperkalemia as well as severe metabolic acidosis, which was treated medically with improvement in potassium level. During the course of the hospitalization, creatinine was trending up, necessitating Nephrology consult. Recent baseline of creatinine seems to be 1.5 to 1.8 with creatinine of 1.8 on February 2020. Creatinine on presentation was 2.5, which has increased to 2.66. The patient denied nausea, vomiting, hematemesis, diarrhea, fever, or chills. She reported that the swelling has improved since presentation. Of note, the patient was on RAAS major prior to presentation but that was held during this hospitalization. OBJECTIVE: VITAL SIGNS: Temperature 98.5, pulse 77, respiratory rate 18, SpO2 of 97, blood pressure 128/84. I and O in the last 24 hours showed total intake of 601, with output of 1595. GENERAL: Chronically ill-looking cachectic female, in no obvious distress. Afebrile. Anicteric. Acyanotic. HEENT: Normocephalic, atraumatic. Oral mucosa is moist. NECK: Supple with no obvious JVD. CARDIOVASCULAR: Regular rhythm and rate with normal heart sounds 1 and 2. Systolic murmur noted. RESPIRATORY: Fair air entry bilaterally with some transmitted breath sounds noted especially posteriorly. No tachypnea or use of accessory muscles or rhonchi appreciated. GI: Full, soft, nontender, nondistended with normal bowel sounds. UROGENITAL: Moses catheter is in place draining some urine. MUSCULOSKELETAL/EXTREMITIES: Mild left and moderate right leg edema noted. Atrophy of the limbs also is noted. PET TECHNOLOGIST: Conscious and alert, oriented x3 with appropriate mental status. Cranial nerves 2 through 12 are grossly intact. DIAGNOSTIC DATA: CBC on May 08 showed WBC of 3.9, hemoglobin of 10.2, MCV of 101, platelets of 182. Chemistry today showed sodium 139, potassium 4.9, chloride 108, CO2 of 19, BUN 58, creatinine 2.66, calcium 8.5. On presentation on May 08, sodium was 139, potassium 5.5, chloride 108, CO2 of 18, BUN 53, creatinine 2.47. Total bilirubin 0.4. AST 14, ALT 7, alkaline phosphatase 75, total protein 6.4, albumin 3.4. Arterial blood gas yesterday morning showed a pH of 7.17, pCO2 of 60.5, pO2 of 73.6, which improved with BiPAP to pH of 7.21, pCO2 of 58.0, and pCO2 of 74.7 with ionized calcium of 1.23. Chest x-ray on presentation on May 08, 2020, showed interval development of small bilateral pleural effusion, greater on the right, as well as increased interstitial and patchy opacities in right perihilar region, which may represent infectious process. Repeat chest x-ray on May 09 after right-sided thoracentesis showed interval decrease in right layering pleural effusion with no significant pneumothorax. Echocardiogram performed on May 09 showed moderately depressed left ventricular systolic function with estimated EF of 30% to 35%. E/A flow reversal noted suggestive of diastolic heart failure/dysfunction. Moderate pericardial effusion as well was noted. Also noted were severe mitral regurgitation as well as severe tricuspid regurgitation. ASSESSMENT: 1. Acute kidney injury: Due to hemodynamic factors related to cardiorenal. The patient came in with creatinine of 2.47, which is elevated relative to 1.8 in February when she left the hospital. Some contribution from recently started RAAS major cannot be ruled out. The patient currently is off RAAS major. 2. Chronic kidney disease stage 3. 3. Acidosis: Missed due to respiratory and metabolic. Improved with bicarb and BiPAP. 4. Hyperkalemia: Due to acidosis as well as chronic kidney disease. Treated medically with resolution. 5. Anasarca: Due to congestive heart failure exacerbation. The patient also is a chronic alcoholic with possible liver pathology. 6. Protein-calorie malnutrition. 7. Hypertension: Control is fair. 8. Pericardial effusion. 9. Bilateral pleural effusion status post right-sided thoracentesis: Most likely due to acute on chronic heart failure. 10. Severe mitral and tricuspid regurgitation. PLAN: 1. We will continue diuretic therapy due to acute on chronic heart failure. We will monitor renal function and intake and output. 2. We will get urinalysis as well as urine electrolytes to calculate fractional excretion of urea. 3. We will also start the patient on alkali therapy due to chronic kidney disease and metabolic acidosis. 4. We will also monitor vitals with a view to adjust antihypertensives to get adequate BP control. 5. Avoid RAAS major at this point. 6. Further treatment to follow depending on hospital course and review of other diagnostic test. 7. Ultrasound of the kidneys is contemplated. Job ID: [id number]
[2020-05-10] MEDS: Sodium Bicarbonate Tab 325 MG TAB PO SCH ×2 (14:46→20:44)
--- NOTE | 2020-05-10 15:49 | EKG ---
Test Reason : Blood Pressure : / mmHG Vent. Rate : 058 BPM Atrial Rate : 058 BPM P-R Int : 272 ms QRS Dur : 092 ms QT Int : 520 ms P-R-T Axes : 041 001 172 degrees QTc Int : 510 ms Sinus bradycardia with 1st degree A-V block T wave abnormality, consider lateral ischemia Prolonged QT Abnormal ECG No previous ECGs available Confirmed by YUMIKO MCMANUS M.D. ([id number]) on 05/10/2020 3:48:49 PM Referred By: ADRIANE Confirmed By:YUMIKO MCMANUS M.D.
[2020-05-10] MEDS: Nicotine 14 MG PATCH TD SCH (20:29)
[2020-05-11 03:37] LABS: Hemoglobin 8.7 g/dL (12.0-16.0); Mean Corpuscular HGB CONC 30.8 g/dL (32.0-36.0); Mean Corpuscular Hemoglobin 30.7 pg (27.0-31.0); Mean Corpuscular Volume 99.5 fL (78.0-98.0); Mean Platelet Volume 7.8 fL (7.4-10.4); Platelet Count 175 thou/uL (130-400); RBC Distribution Width 16.7 % (11.5-14.5); Red Blood Cell (RBC) Count 2.84 mill/uL (4.20-5.40); White Blood Cell (WBC) Count 3.5 thou/uL (4.8-10.8)
[2020-05-11] MEDS ORDERED: Pantoprazole 40 MG VIAL IVP SCH (03:45)
[2020-05-11 03:51] LABS: Albumin 2.8 g/dL (3.4-4.8); Anion Gap 13 mmol/L (10-20); BUN (Urea Nitrogen) 57 mg/dL (9.8-20.1); BUN/Creatinine Ratio 19.32; Calc. Creatinine Clearance 18 mL/min (70-130); Calcium 8.2 mg/dL (7.8-10.44); Carbon Dioxide 25 mmol/L (23-31); Chloride 107 mmol/L (98-107); Estimated GFR-MDRD 19; Glucose 91 mg/dL (80-115); Magnesium 1.7 mg/dL (1.6-2.6); Phosphorus 4.8 mg/dL (2.3-4.7); Potassium 4.5 mmol/L (3.5-5.1); Sodium 140 mmol/L (136-145)
[2020-05-11 04:01] LABS: #Eosinphils 0.1 thou/uL (0.0-0.7); #Lymphocytes 0.8 thou/uL (1.20-3.40); #Monocytes 0.2 thou/uL (0.11-0.59); %Basophils 0.2 % (0.0-1.0); %Eosinophils 3.3 % (0.0-10.0); %Lymphocytes 26.5 % (21.0-51.0); %Monocytes 6.2 % (0.0-10.0); %Neutrophils 63.8 % (42.0-75.0); Hemoglobin 8.5 g/dL (12.0-16.0); Mean Corpuscular Hemoglobin 30.7 pg (27.0-31.0); Mean Corpuscular Volume 99.2 fL (78.0-98.0); Mean Platelet Volume 7.6 fL (7.4-10.4); Platelet Count 170 thou/uL (130-400); RBC Distribution Width 16.7 % (11.5-14.5); Red Blood Cell (RBC) Count 2.78 mill/uL (4.20-5.40); White Blood Cell (WBC) Count 3.2 thou/uL (4.8-10.8)
[2020-05-11 04:11] LABS: INR-International Normal Ratio 1.3; PTT 39.6 sec (22.9-36.1); Prothrombin Time 16.6 sec (12.0-14.7)
--- NOTE | 2020-05-11 09:21 | PDOC.NEPPN ---
- Subjective Encounter Date: 05/11/20 Encounter Time: 09:18 Subjective: 69 y/o female with chronic alcohol abuse, CKD, cardiomyopathy and others seen in follow up for HORTENCIA on CKG. Patient was admitted due to worsening SOB and edema and found to have acute on chronic CHF which has improved with diuretic, BIPAP and right sided thoracentesis. Patient developed recurrent boody stool since last night. No associated nausea, vomiting, hematemesis, melena, or fever. - Objective Vital Signs & Weight: Vital Signs (12 hours) Temp BP Pulse Ox 05/11/20 07:42 98.7 F 05/11/20 04:00 151/90 H 05/11/20 02:53 91 L 05/11/20 00:00 98.8 F 162/94 H Weight Weight 128 lb 4 oz Most Recent Monitor Data Heart Rate from ECG 82 NIBP 134/87 NIBP BP-Mean 102 Respiration from ECG 13 SpO2 97 I&O: 05/10/20 05/11/20 05/12/20 06:59 06:59 06:59 Intake Total 601 1131 Output Total 1595 3305 Balance -994 -3314 Result Diagrams: 05/11/20 03:53 05/11/20 03:19 Nephrology ROS - Medication Medications: Active Medications Generic Name Dose Route Start Last Admin Trade Name Nateq PRN Reason Stop Dose Admin Aspirin 81 mg 05/09/20 09:00 05/10/20 08:19 Aspirin 81 Mg Enteric Coated Tablet PO 81 mg DAILY ESTHER Administration Carvedilol 25 mg 05/09/20 09:00 05/10/20 20:30 Carvedilol 25 Mg Tab PO 25 mg BID ESTHER Administration Ferrous Sulfate 325 mg 05/09/20 08:00 05/10/20 08:19 Ferrous Sulfate 325 Mg Tab PO 325 mg QAM-WM ESTHER Administration Folic Acid 1 mg 05/09/20 09:00 05/10/20 08:22 Folic Acid 1 Mg Tab PO 1 mg DAILY ESTHER Administration Furosemide 40 mg 05/10/20 09:00 05/10/20 13:34 Furosemide 20 Mg Tab PO 40 mg 0900,1400 ESTHER Administration Iron/Minerals/Multivitamins 1 tab 05/09/20 09:00 05/10/20 08:20 Multivitamin W/ Minerals 1 Tab PO 1 tab DAILY ESTHER Administration Levetiracetam 500 mg 05/09/20 09:00 05/10/20 20:30 Levetiracetam 500 Mg Tab PO 500 mg BID ESTHER Administration Lorazepam 1 mg 05/08/20 21:12 05/10/20 22:20 Lorazepam 2 Mg/Ml Vial SLOW IVP 1 mg Q1H PRN Administration Alcohol Withdrawal Nicotine 14 mg 05/08/20 21:00 05/10/20 20:29 Nicotine 14 Mg Patch TD 14 mg Q24HR ESTHER Administration Sertraline HCl 50 mg 05/09/20 09:00 05/10/20 08:20 Sertraline Hcl 25 Mg Tab PO 50 mg DAILY ESTHER Administration Sodium Chloride 10 ml 05/09/20 09:00 05/10/20 20:31 Flush - Normal Saline 10 Ml Syringe IVF 10 ml Q12HR ESTHER Administration Thiamine HCl 100 mg 05/09/20 09:00 05/10/20 08:22 Thiamine 100 Mg Tab PO 100 mg DAILY ESTHER Administration - Exam General Appearance: awake alert General - other findings: cachetic Eye: anicteric sclera ENT: normocephalic atraumatic, moist mucosa Neck: supple, symmetric, no JVD Respiratory - other findings: fair air entry bilaterally. Cardiovascular: RRR, murmur present Gastrointestinal: soft, non-distended, normal bowel sounds Gastrointestinal - other findings: mild diffuse tenderness noted. Moses catheter is in place Extremities - other findings: trace edema of both ankles especially righ noted. Atrophy of limbs noted Neurological: CN's grossly intact PSYCH: A&O x 3 Nephrology Results - Labs Result Diagrams: 05/11/20 03:53 05/11/20 03:19 Lab results: WBC 3.2 thou/uL (4.8-10.8) L 05/11/20 03:53 Hgb 8.5 g/dL (12.0-16.0) L 05/11/20 03:53 Hct 27.6 % (36.0-47.0) L 05/11/20 03:53 MCV 99.2 fL (78.0-98.0) H 05/11/20 03:53 Plt Count 170 thou/uL (130-400) 05/11/20 03:53 Neutrophils % 63.8 % (42.0-75.0) 05/11/20 03:53 ABG pH 7.21 (7.35-7.45) L* 05/09/20 11:48 ABG pCO2 58.0 mmHg (35.0-45.0) H 05/09/20 11:48 ABG pO2 74.7 mmHg (> 80.0) 05/09/20 11:48 Sodium 140 mmol/L (136-145) 05/11/20 03:19 Potassium 4.5 mmol/L (3.5-5.1) 05/11/20 03:19 Chloride 107 mmol/L (98-107) 05/11/20 03:19 Carbon Dioxide 25 mmol/L (23-31) 05/11/20 03:19 BUN 57 mg/dL (9.8-20.1) H 05/11/20 03:19 Creatinine 2.95 mg/dL (0.6-1.1) H 05/11/20 03:19 Glucose 91 mg/dL (80-115) 05/11/20 03:19 Calcium 8.2 mg/dL (7.8-10.44) 05/11/20 03:19 Total Bilirubin 0.4 mg/dL (0.2-1.2) 05/09/20 04:11 AST 12 U/L (5-34) 05/09/20 04:11 ALT Less than 7 U/L (8-55) L 05/09/20 04:11 Alkaline Phosphatase 73 U/L (40-110) 05/09/20 04:11 CK-MB (CK-2) 2.1 ng/mL (0-6.6) 05/08/20 18:39 Troponin I 0.048 ng/mL (< 0.028) H 05/09/20 08:25 B-Natriuretic Peptide 5656.2 pg/mL (0-100) H 05/08/20 18:39 Serum Total Protein 6.8 g/dL (6.0-8.3) 05/09/20 04:11 Albumin 2.8 g/dL (3.4-4.8) L 05/11/20 03:19 Urine Ketones Negative mg/dL (Negative) 05/10/20 09:44 Urine Blood Trace (Negative) A 05/10/20 09:44 Urine Nitrite Negative (Negative) 05/10/20 09:44 Ur Leukocyte Esterase 75 Gunner/uL (Negative) A 05/10/20 09:44 Urine RBC 4-6 HPF (0-3) A 05/10/20 09:44 Urine WBC 0-3 HPF (0-3) 05/10/20 09:44 Ur Squamous Epith Cells 0-3 HPF (0-3) 05/10/20 09:44 Urine Bacteria 1+ HPF (None Seen) A 05/10/20 09:44 Nephrology AP PN - Plan HORTENCIA: Creat today is 2.95. Was 2.47 on admission. Due to hemodynamic factors related to cardiac decompensation and aggressive diuretic therapy. FeUrea of 17 is consistent Metabolic acidosis Hyperkalemia: resolved CKD stage 3. recent baseline creat ranges from 1.5 to 1.8 Acute on chronic anemia. Hb is down from 10 to 8. Due to GI bleeding. Patient is having hematochezia Acute GI bleeding/Hematochezia. HTN: Control is suboptimal Hypoalnuminemia Chronic alcohol abuse. PCM Physical deconditioning. Plam Give albumin to expand intravascular space inview of rising creat and acute blood loss anemia Start low dose hydralazine and isosorbide in view of poorly controlled BP and cardiomyopathy. Hold diuretic for now. GI bleeding evaluation and treatment/transfusion as per primary attending and GI. Repeat renal function the am.
--- NOTE | 2020-05-11 09:28 | RAD ---
Chest AP view INDICATION: CHF COMPARISON: May 09, 2020 FINDINGS: Lungs: Worsening central edema pattern Cardiac silhouette: Stable moderate cardiomegaly Pulmonary vasculature: Worsening pulmonary vascular congestion Pleural spaces: Small bilateral pleural effusions, increased in size from the prior exam. No pneumot horax Upper abdomen: No abnormality seen. Osseous structures: Diffuse osteopenia. There is scattered degenerative and osteoarthritic change pr esent. Additional findings: None. IMPRESSION: Worsening CHF
--- NOTE | 2020-05-11 09:52 | PRG ---
DATE OF SERVICE: 05/11/2020 SUBJECTIVE: Dena Oconnell is a 69-year-old female. This morning, she is awake, alert, responsive. OBJECTIVE: VITAL SIGNS: Temperature 98, sats 99%, blood pressure 130/87, respirations 18. GENERAL: No distress. CHEST: No wheezing. No crackles. CARDIAC: Normal S1, S2. No gallops. No masses. LABORATORY DATA: Unremarkable. Creatinine 2.95. IMPRESSION: Chronic renal failure, congestive heart failure, severe deconditioning, pericardial effusion. PLAN: She can probably be transferred out of the MICU to medical floor. Continue PT, supportive care. We will follow. Job ID: [id number]
--- NOTE | 2020-05-11 09:54 | ULT ---
Renal sonogram HISTORY: Renal failure. Evaluate for obstruction. FINDINGS: Right kidney measures up to 8.3 cm length and the left kidney 8.8 cm. Each has a normal priya earance without evidence of mass, stone, or hydronephrosis. Urinary bladder predominantly decompressed by a Moses catheter. Small amount of free fluid evident within the abdomen bilateral pleural fluid partially visualized. IMPRESSION : No evidence of urinary tract obstruction. Moses catheter in place. Small amount ascites. Bilateral pleural effusions.
[2020-05-11] MEDS: Thiamine 100 MG TAB PO SCH (10:09)
[2020-05-11] MEDS: Aspirin 81 mg Enteric Coated Tablet PO SCH (10:09)
[2020-05-11] MEDS: Ferrous Sulfate 325 MG TAB PO SCH (10:09)
[2020-05-11] MEDS: Multivitamin W/ Minerals 1 TAB PO SCH (10:09)
[2020-05-11] MEDS: Carvedilol 25 MG TAB PO SCH ×2 (10:10→21:38)
[2020-05-11] MEDS: levETIRAcetam 500 MG TAB PO SCH ×2 (10:10→21:38)
[2020-05-11] MEDS: Folic Acid 1 MG TAB PO SCH (10:10)
[2020-05-11] MEDS: Isosorbide Dinitrate 20 MG TAB PO SCH ×3 (10:10→21:38)
[2020-05-11] MEDS: hydrALAZINE 10 MG TAB PO SCH ×3 (10:11→21:38)
[2020-05-11] MEDS: Sodium Bicarbonate Tab 325 MG TAB PO SCH ×2 (10:12→21:38)
[2020-05-11] MEDS: Sodium Chloride 0.9% 1,000 ML IV SCH (10:13)
[2020-05-11] MEDS: Albumin 25% 25 GM/100 ML BOT IVPB SCH ×2 (10:13→18:07)
--- NOTE | 2020-05-11 10:41 | PDOC.FM ---
- Subjective Subjective: Patient lying in bed this morning, arousable to verbal stimulation. Denies any pain complaints, nausea/vomiting. Earlier this morning around 0330 was noted to have large BM with stool mixed with blood clots. Then around 0600 was noted to have brittny bright red blood per her rectum. She was given IV Protonix by overnight team. - Objective MAR Reviewed: Yes Vital Signs & Weight: Vital Signs (12 hours) Temp BP Pulse Ox 05/11/20 10:11 151/90 H 05/11/20 07:42 98.7 F 05/11/20 04:00 151/90 H 05/11/20 02:53 91 L 05/11/20 00:00 98.8 F 162/94 H Weight Weight 58.173 kg Most Recent Monitor Data Heart Rate from ECG 82 NIBP 96/67 NIBP BP-Mean 76 Respiration from ECG 14 SpO2 98 I&O: 05/10/20 05/11/20 05/12/20 06:59 06:59 06:59 Intake Total 601 1131 Output Total 1595 3305 Balance -994 -0864 Result Diagrams: 05/11/20 12:13 05/11/20 03:19 Phys Exam - Physical Examination Constitutional: NAD HEENT: moist MMs Neck: supple Respiratory: clear to auscultation bilateral Cardiovascular: RRR, no significant murmur Gastrointestinal: soft, no distention, positive bowel sounds Musculoskeletal: no edema, pulses present Neurological: moves all 4 limbs Psychiatric: normal affect Skin: no rash Dx/Plan (1) Acute respiratory failure with hypoxia Code(s): J96.01 - ACUTE RESPIRATORY FAILURE WITH HYPOXIA Status: Acute (2) Heart failure with reduced ejection fraction Code(s): I50.20 - UNSPECIFIED SYSTOLIC (CONGESTIVE) HEART FAILURE Status: Chronic (3) Pericardial effusion Code(s): I31.3 - PERICARDIAL EFFUSION (NONINFLAMMATORY) Status: Acute (4) Acute kidney injury superimposed on CKD Code(s): N17.9 - ACUTE KIDNEY FAILURE, UNSPECIFIED; N18.9 - CHRONIC KIDNEY DISEASE, UNSPECIFIED Status: Acute (5) Lower GI bleeding Code(s): K92.2 - GASTROINTESTINAL HEMORRHAGE, UNSPECIFIED Status: Acute (6) Alcohol abuse Code(s): F10.10 - ALCOHOL ABUSE, UNCOMPLICATED Status: Chronic - Plan Plan: 69 yo F admitted for trouble breathing: #Acute hypoxic respiratory failure 2/2 HFrEF exacerbation, improving - COVID neg - CXR: bilateral pleural effusion, repeat 05/11 shows slight interval worsening of CHF - Right thoracentesis 05/09: transudative effusion -effusion culture pending - currently holding Lasix d/t HORTENCIA - off BIPAP, intermittently tolerating room air vs n/c - Pulm consulted, Dr. Hernandez, appreciate recs #HORTENCIA on CKD4 -Cr 2.4 on admission, was 1.8 on 02/23 -possibly worsening CKD -consult Nephro, Dr. Buitrago, appreciate recs -urine studies completed, FeNA of 4.9% suggestive of post-obstructive process -Renal ultrasound relatively normal, no signs of stone or obstruction -will hold diuresis and Lisinopril -starting Hydralazine and Isosorbide mononitrate, Albumin suppl. -start Alkali treatment -Fluid overloaded, hx of HF -continue to monitor -hold home lisinopril, Lasix #GI Bleeding, suspect lower GI source -bright red blood per rectum noted this morning -Hgb 10.2 > 8.5 this AM -consult GI, Dr. Dejesus, appreciate recs -place on NPO, additional IV Protonix given earlier today -continue home Protonix PO BID #Pericardial effusion -Consult CV Surgery, Dr. Dunn, appreciate recs -read as 1 cm, mainly dependent, effusion -no intervention needed at this time #HTN - daily weight, strict I/Os, fluid restrict - consult CV surg for Pericardial effusion this AM. - continue lasix 40mg PO BID #Hyperkalemia, resolved -admission K5.5 > 4.5 this AM #Acute encephalopathy, resolved #Seizure disorder - now AxO x3 - continue home keppra #Hx of Alcohol abuse - ASE protocol, ativan prn, librium taper, thiamine - last drink at 1100 on 05/07/2020 #Tobacco abuse - nicotine patch #Macrocytic anemia - on multivitamin #Depression - continue home meds Diet: HH VTE: SCDs Code: Full PCP: Eva Thapa Dispo: Admitted to inpatient in IMCU unit. Consult GI this morning due to new rectal bleeding. May consider transition to medical unit after GI able to evaluate. Anticipate discharge in >48hrs. Addendum - Attending - Attending Attestation Date/Time: 05/11/20 1249 I personally evaluated the patient and discussed the management with Dr. Chiang. I agree with the History, Examination, Assessment and Plan documented above with any addition or exceptions noted below.
[2020-05-11 12:37] LABS: #Eosinphils 0.1 thou/uL (0.0-0.7); #Lymphocytes 0.7 thou/uL (1.20-3.40); #Monocytes 0.3 thou/uL (0.11-0.59); #Neutrophils 2.1 thou/uL (1.40-6.50); %Basophils 1.2 % (0.0-1.0); %Eosinophils 2.8 % (0.0-10.0); %Lymphocytes 20.8 % (21.0-51.0); %Neutrophils 65.3 % (42.0-75.0); Mean Corpuscular HGB CONC 30.1 g/dL (32.0-36.0); Mean Corpuscular Hemoglobin 30.2 pg (27.0-31.0); Mean Platelet Volume 8.1 fL (7.4-10.4); Platelet Count 159 thou/uL (130-400); RBC Distribution Width 16.7 % (11.5-14.5); White Blood Cell (WBC) Count 3.2 thou/uL (4.8-10.8)
--- NOTE | 2020-05-11 13:01 | PDOC.BPN ---
- Brief Progress Note Encounter Date: 05/11/20 Encounter Time: 12:45 CBC ordered by GI resulted at 7.0 this afternoon. Pt BP decreased to 99/70 from SBP 120s this AM. Asked Андрей DOAN to page/text Dr. Dejesus to let him know. IV lines on patient are infiltrated. Considering placing central line. Would like to know from Dr. dejesus about timing of colonoscopy given patient's continued bleeding and drop of Hgb by 3 points. Discussed w/ resident Андрей.
--- NOTE | 2020-05-11 14:37 | PDOC.BPN ---
- Brief Progress Note Encounter Date: 05/11/20 Encounter Time: 14:30 Central line placed w/ Dr. Saunders present. See dictated op note for details. Ordered 2 units of blood to be transfused. Give IV lasix after 1st unit. Consider 2nd dose lasix pending fluid status.
[2020-05-11] MEDS ORDERED: Furosemide 20 MG/2 ML VIAL SLOW IVP SCH (14:45)
--- NOTE | 2020-05-11 15:56 | RAD ---
CHEST 1 VIEW: Date: 05/11/2020 Time: 1431 hours HISTORY: Central line placement. FINDINGS/IMPRESSION: There has been interval placement of a right internal jugular central venous catheter with tip in the projection of the right atrium since earlier exam of 0919 hours from the same date. No pneumothorax is seen. The heart size is stable. Bilateral pleural effusions are again seen. POS: AH
[2020-05-11] MEDS ORDERED: GoLYTELY 4,000 ml Bottle PO SCH (17:00)
[2020-05-11 19:20] LABS: #Eosinphils 0.1 thou/uL (0.0-0.7); #Lymphocytes 0.8 thou/uL (1.20-3.40); #Monocytes 0.4 thou/uL (0.11-0.59); #Neutrophils 2.5 thou/uL (1.40-6.50); %Basophils 0.4 % (0.0-1.0); %Eosinophils 3.8 % (0.0-10.0); %Lymphocytes 21.4 % (21.0-51.0); %Monocytes 9.3 % (0.0-10.0); %Neutrophils 65.1 % (42.0-75.0); Hemoglobin 7.5 g/dL (12.0-16.0); Mean Corpuscular HGB CONC 31.6 g/dL (32.0-36.0); Platelet Count 138 thou/uL (130-400); RBC Distribution Width 16.5 % (11.5-14.5); Red Blood Cell (RBC) Count 2.33 mill/uL (4.20-5.40); White Blood Cell (WBC) Count 3.8 thou/uL (4.8-10.8)
--- NOTE | 2020-05-11 20:32 | OP ---
DATE OF PROCEDURE: 05/11/2020 PROCEDURE PERFORMED: Central line placement. (Dr Cornelius Garcia and Dr Carlos Saunders) RESIDENT: Cherie Garcia MD. INDICATIONS: Acute blood loss anemia secondary to rectal bleeding; decreased GFR contraindicating use of midline; need for transfusion of blood products and no peripheral intravenous access. PROCEDURE IN DETAIL: The patient was somnolent and unable to give her informed consent. Her son was called who is her medical power of attorney recruiter; and he gave his consent for the procedure. The patient was prepped and draped in the usual sterile fashion. She was placed in Trendelenburg position. Ultrasound guidance to locate the right internal jugular vein was utilized. Lidocaine was used as anesthetic. A needle was used under ultrasound guidance to enter the internal jugular vein. Blood flashback confirmed placement. A guidewire was threaded through the needle, and the needle was removed. A small celena on the skin was made with a scalpel. A dilator was passed over the guidewire and inserted to nearly its full depth. The dilator was then removed. The central line was placed over the guidewire and threaded through the brown (middle) port. The central line was threaded over the guidewire to its hub, and the guidewire was removed. Blood was drawn back from all three lines, and the lines were flushed with sterile saline and capped. The central line was sutured in place with silk suture. Sterile dressing was placed. The patient tolerated the procedure well and remained in her room for recovery. Dr. Saunders was present during the entire procedure and assisted with ultrasound guidance. Job ID: [id number] MTDD
[2020-05-11] MEDS: Nicotine 14 MG PATCH TD SCH (21:37)
--- NOTE | 2020-05-12 01:32 | CON ---
DATE OF CONSULTATION: 05/11/2020 REASON FOR CONSULTATION: Hematochezia. CONSULTING PROVIDER: Sully Chiang DO HISTORY OF PRESENT ILLNESS: The patient is a 69-year-old female with past medical history of congestive heart failure, alcohol abuse, tobacco abuse, chronic kidney disease, hypertension, and seizure disorder, who initially presented with worsening shortness of breath and lower extremity edema. She was subsequently admitted to the hospital with a diagnosis of acute exacerbation of her chronic congestive heart failure and was undergoing workup related to this particular diagnosis with diuretic management. She was initially responding well to therapy, but over the course of the last 24 hours, the patient began having increasing hematochezia, characterized as bright red blood per rectum with large amounts per nursing staff consistent of both active bleeding and significant blood clots. This continued over the course of the day today and was associated with increased heart rate and hypotension at one point in time concerning for significant GI bleeding. However, over the course of the day today, she responded well to administration of blood product and has since stabilized with nursing staff noting that her hematochezia has lessened significantly with very little episode within the last 4-6 hours. Upon interviewing the patient today, she was noted to be significantly somnolent and lethargic with mild difficulty remaining awake to answer questions, which was a change in her mental status when compared to even earlier this morning. However, she currently denies any nausea, vomiting, fevers, chills, hematemesis, melena, abdominal pain, dysphagia, odynophagia, or weight loss prior to admission. Per chart review, the patient was not placed on full anticoagulation during the course of this hospitalization that may have contributed to her increased hematochezia. Upon speaking with the patient, she could not remember if she had ever had a colonoscopy. However, per review of the records in our outpatient system, she did have an EGD and colonoscopy performed on October 14, 2015 with the findings of only diverticulosis noted throughout the entire colon and considered moderate diverticulosis coli. REVIEW OF SYSTEMS: A 10-category review of systems was obtained with all responses negative except for the pertinent positives as listed in HPI, albeit the patient was somewhat somnolent, making questioning difficult. PAST MEDICAL HISTORY: As per HPI. PAST SURGICAL HISTORY: Left lower extremity surgery in addition to hysterectomy. FAMILY HISTORY: No mention of GI malignancies in her chart. INPATIENT MEDICATIONS: Reviewed. ALLERGIES: GADOLINIUM CONTRAST. SOCIAL HISTORY: She drinks approximately 10 shots of vodka daily in addition to smoking approximately 1/2 to 1 pack per day, but no mention of illicit drug use. PHYSICAL EXAMINATION: VITAL SIGNS: Temperature 98.4, pulse 75, blood pressure 142/81, respiratory rate 13, and saturating 100% on room air. GENERAL: The patient was lying in bed, in no acute distress, but somnolent to interviewing semi-alert and oriented x3. HEENT: Normocephalic and atraumatic. NECK: Supple. No scleral icterus noted. CARDIOVASCULAR: Regular rate and rhythm with no discernible murmurs, gallops, or rubs. RESPIRATORY: Clear to auscultation bilaterally with no discernible wheezes or rales, although with poor inspiratory effort. ABDOMEN: Normoactive bowel sounds. Soft, nontender, nondistended. EXTREMITIES: Bilateral lower extremity edema extending to about mid bartlett. LABORATORY DATA: CBC with a white blood cell count of 3.2, hemoglobin 7.0, hematocrit 23.1, platelets 159. INR 1.3. Chemistry with a sodium of 140, potassium 4.5, chloride 107, CO2 of 25, BUN 57, creatinine 2.95, glucose 91. IMAGING DATA: Chest x-ray was obtained on May 11, 2020, which showed interval placement of a right internal jugular venous catheter with no evidence of pneumothorax and bilateral pleural effusions again seen, but stable in appearance. ASSESSMENT AND PLAN: The patient is a 69-year-old female with past medical history of congestive heart failure, chronic kidney disease, hypertension, seizure disorder, alcohol abuse and tobacco abuse, presenting with hematochezia. Hematochezia: The patient initially presented to the hospital with complaints of worsening shortness of breath and lower extremity edema consistent with an acute exacerbation of her congestive heart failure. She was subsequently treated with diuretic therapy and had been responding well to therapy until within the last 24 hours began having significant hematochezia characterized as bright red blood per rectum in addition to the appearance of blood clots. Associated with this significant bleeding, she did have tachycardia and hypotension, initially concerning for very active gastrointestinal bleed. However, with the placement of a central line and the infusion of blood product, has had a significant reduction in the amount of hematochezia being expressed and normalization of her heart rate and pressures. Based on the colonoscopy performed back in 2015, the more likely explanation for her bleeding would be a diverticular bleeding source, but differential could also include ischemic colitis, arteriovenous malformation, Dieulafoy lesion, and/or GI neoplasm (less likely given the relatively negative colonoscopy in 2016). RECOMMENDATIONS: 1. Would continue to trend her H and H and transfuse as necessary to maintain an H and H of 7/21. 2. Continue to monitor clinically for signs of active GI bleeding. 3. Continue the patient on a clear liquid diet with the patient n.p.o. at midnight in anticipation of colonoscopy tomorrow. 4. Would administer 4 L of GoLYTELY with the first 2 L administered tonight and the remaining 2 L administered tomorrow morning at approximately 3 a.m. If the patient is unable to tolerate the GoLYTELY administration by mouth, we would consider placing an NG tube to facilitate administration of the colonoscopy prep. 5. We will plan for colonoscopy tomorrow morning for further evaluation. We will continue to follow. Please call with any questions. Job ID: [id number]
[2020-05-12] MEDS: Sodium Chloride 0.9% 1,000 ML IV SCH ×2 (04:14→19:15)
[2020-05-12 04:57] LABS: Hemoglobin 8.1 g/dL (12.0-16.0); Mean Corpuscular HGB CONC 32.3 g/dL (32.0-36.0); Mean Corpuscular Volume 96.1 fL (78.0-98.0); Platelet Count 138 thou/uL (130-400); RBC Distribution Width 16.3 % (11.5-14.5); Red Blood Cell (RBC) Count 2.62 mill/uL (4.20-5.40)
[2020-05-12 04:58] LABS: Albumin 2.6 g/dL (3.4-4.8); Anion Gap 14 mmol/L (10-20); BUN (Urea Nitrogen) 51 mg/dL (9.8-20.1); BUN/Creatinine Ratio 19.84; Calc. Creatinine Clearance 20 mL/min (70-130); Calcium 7.9 mg/dL (7.8-10.44); Carbon Dioxide 25 mmol/L (23-31); Chloride 105 mmol/L (98-107); Estimated GFR-MDRD 23; Glucose 75 mg/dL (80-115); Phosphorus 3.7 mg/dL (2.3-4.7); Potassium 4.3 mmol/L (3.5-5.1); Sodium 140 mmol/L (136-145)
[2020-05-12] MEDS: Ferrous Sulfate 325 MG TAB PO SCH (08:54)
[2020-05-12] MEDS: Carvedilol 25 MG TAB PO SCH ×2 (09:16→21:02)
[2020-05-12] MEDS: levETIRAcetam 500 MG TAB PO SCH ×2 (09:16→21:01)
--- NOTE | 2020-05-12 09:19 | PRG ---
DATE OF SERVICE: 05/12/2020 SUBJECTIVE: This morning, she is awake, alert, and responsive. Apparently, she had an episode of GI bleed, bright red bloody stool. GI has been consulted. She appears relatively stable. OBJECTIVE: VITAL SIGNS: Temperature 98, blood pressure 164/94, . CHEST: No wheezing. No crackles. CARDIAC: Normal S1 and S2. No gallops. ABDOMEN: No masses. LABORATORY DATA: Hemoglobin and hematocrit 8 and 25, white count 4000. Creatinine 2, BUN 51. ASSESSMENT: Lower GI bleed, chronic renal failure, congestive heart failure. PLAN: Continue basic supportive care. Await input from GI. We will follow. Job ID: [id number]
--- NOTE | 2020-05-12 09:58 | PDOC.FM ---
- Subjective Subjective: Patient resting in bed this morning, awaiting colonoscopy. She had minimal rectal bleeding overnight. Denies any complaints this morning. Yesterday morning continued to have rectal bleeding, subsequently developed a period of hypotension and tachycardia. Peripheral IV access was lost with multiple unsuccessful attempts to replace. At that point a central line was placed in right IJ. Patient required transfusion of 2 units pRBCs. - Objective MAR Reviewed: Yes Vital Signs & Weight: Vital Signs (12 hours) Temp BP 05/12/20 08:00 164/94 H 05/12/20 07:22 98.2 F 05/12/20 04:00 98.6 F 160/93 H 05/12/20 01:00 99.0 F 05/12/20 00:00 144/84 H Weight Weight 55.849 kg Most Recent Monitor Data Heart Rate from ECG 86 NIBP 159/88 NIBP BP-Mean 111 Respiration from ECG 20 SpO2 95 I&O: 05/11/20 05/12/20 05/13/20 06:59 06:59 06:59 Intake Total 1131 4290 Output Total 3305 3600 Balance -2174 690 Result Diagrams: 05/12/20 04:15 05/12/20 04:15 Phys Exam - Physical Examination Constitutional: NAD HEENT: moist MMs Neck: supple, full ROM Respiratory: clear to auscultation bilateral Cardiovascular: RRR, no significant murmur Gastrointestinal: soft, non-tender, no distention, positive bowel sounds Musculoskeletal: no edema, pulses present Neurological: normal sensation, moves all 4 limbs Psychiatric: normal affect Skin: no rash Dx/Plan (1) Acute respiratory failure with hypoxia Code(s): J96.01 - ACUTE RESPIRATORY FAILURE WITH HYPOXIA Status: Acute (2) Heart failure with reduced ejection fraction Code(s): I50.20 - UNSPECIFIED SYSTOLIC (CONGESTIVE) HEART FAILURE Status: Chronic (3) Pericardial effusion Code(s): I31.3 - PERICARDIAL EFFUSION (NONINFLAMMATORY) Status: Acute (4) Acute kidney injury superimposed on CKD Code(s): N17.9 - ACUTE KIDNEY FAILURE, UNSPECIFIED; N18.9 - CHRONIC KIDNEY DISEASE, UNSPECIFIED Status: Acute (5) Lower GI bleeding Code(s): K92.2 - GASTROINTESTINAL HEMORRHAGE, UNSPECIFIED Status: Acute (6) Alcohol abuse Code(s): F10.10 - ALCOHOL ABUSE, UNCOMPLICATED Status: Chronic - Plan Plan: 69 yo F admitted for trouble breathing: #Acute hypoxic respiratory failure 2/2 HFrEF exacerbation, improving - COVID neg - CXR: bilateral pleural effusion, repeat 05/11 shows slight interval worsening of CHF - Right thoracentesis 05/09: transudative effusion -effusion culture negative - currently holding Lasix d/t HORTENCIA - off BIPAP, intermittently tolerating room air vs n/c - Pulm consulted, Dr. Hernandez, appreciate recs #HORTENCIA on CKD4 -Cr 2.4 on admission, was 1.8 on 02/23 -Cr 2.57 this AM -possibly worsening CKD -consult Nephro, Dr. Buitrago, appreciate recs -urine studies completed, FeNA of 4.9% suggestive of post-obstructive process -Renal ultrasound relatively normal, no signs of stone or obstruction -will hold diuresis and Lisinopril -starting Hydralazine and Isosorbide mononitrate, Albumin suppl. -start Alkali treatment -Fluid overloaded, hx of HF -continue to monitor -hold home lisinopril, Lasix #GI Bleeding, suspect lower GI source -bright red blood per rectum noted 05/11 AM -Hgb 10.2 > 7.0 on 05/11, required transfusion of 2 u PRBCs -Hgb back up to 8.1 this AM -consult GI, Dr. Dejesus, appreciate recs -plan for colonoscopy this morning -place on NPO, additional IV Protonix given 05/11 -continue home Protonix PO BID #Pericardial effusion -Consult CV Surgery, Dr. Dunn, appreciate recs -read as 1 cm, mainly dependent, effusion -no intervention needed at this time #HTN - daily weight, strict I/Os, fluid restrict - holding home lasix 40mg PO BID due to HORTENCIA #Hyperkalemia, resolved -admission K5.5 > 4.5 on 05/11 #Acute encephalopathy, resolved #Seizure disorder - now AxO x3 - continue home keppra #Hx of Alcohol abuse - ASE protocol, ativan prn, librium taper, thiamine - last drink at 1100 on 05/07/2020 #Tobacco abuse - nicotine patch #Macrocytic anemia - on multivitamin #Depression - continue home meds Diet: HH VTE: SCDs Code: Full PCP: Eva Thapa Dispo: Admitted to inpatient in IMCU unit. GI to perform colonoscopy this morning. May consider transition to medical unit after GI able to evaluate. Anticipate discharge in >48hrs. Addendum - Attending - Attending Attestation Date/Time: 05/12/20 7503 I personally evaluated the patient and discussed the management with Dr. Chiang. I agree with the History, Examination, Assessment and Plan documented above with any addition or exceptions noted below.
[2020-05-12] MEDS: hydrALAZINE 25 MG TAB PO SCH ×3 (10:35→21:02)
[2020-05-12] MEDS: Isosorbide Dinitrate 20 MG TAB PO SCH ×3 (10:35→21:01)
[2020-05-12] MEDS ORDERED: Ondansetron HCl/PF 4 MG/2 ML Vial IVP PRN (10:41)
[2020-05-12] MEDS: Multivitamin W/ Minerals 1 TAB PO SCH (11:52)
[2020-05-12] MEDS: Folic Acid 1 MG TAB PO SCH (11:52)
[2020-05-12] MEDS: Thiamine 100 MG TAB PO SCH (11:53)
[2020-05-12] MEDS: Aspirin 81 mg Enteric Coated Tablet PO SCH (11:53)
[2020-05-12] MEDS: Sodium Bicarbonate Tab 325 MG TAB PO SCH ×2 (11:53→21:03)
--- NOTE | 2020-05-12 13:46 | OP ---
DATE OF PROCEDURE: 05/12/2020 PREPROCEDURE DIAGNOSES: 1. Gastrointestinal hemorrhage. 2. Anemia secondary to acute gastrointestinal blood loss. 3. Congestive heart failure. 4. Chronic renal insufficiency. POSTPROCEDURE DIAGNOSES: 1. Normal esophagogastroduodenoscopy. 2. Diverticulosis coli throughout the colon, small internal hemorrhoids. 3. No overt evidence of bleeding, likely the bleeding was from diverticular origin. RECOMMENDATIONS: Clear liquids, advance as tolerated if no further bleeding. ANESTHESIA: TIVA. DESCRIPTION OF PROCEDURE: After the patient was informed of the risks, benefits, and possible complications of endoscopy including perforation, bleeding, reaction to medication, and aspiration, informed consent was obtained. The patient was brought to endoscopy suite, where she was sedated in gradual fashion. Once she was comfortable, a bite block was placed in the incisural orifice. The endoscope was advanced into the esophagus, stomach, and second and third portions of the duodenum and slowly removed. The duodenum, stomach and esophagus were normal. There was normal distention of the stomach and there was normal views in forward and retroflexed views. There was no stigmata of bleeding. There was no old blood or heme staining in the stomach or the duodenum. The scope was removed. The patient tolerated this portion of procedure well. She was returned to the room and a rectal exam was performed, revealed small internal hemorrhoids. There was no blood. There was yellow bilious material coming from the rectum. The endoscope was advanced through to the anal canal through the colon to the cecum, which was identified by the ileocecal valve and appendiceal orifice. There was pandiverticulosis. There was no stigmata of recent bleeding. There was no old blood. There were no clots. The prep was very good. Retroflexed views in the rectum revealed some small internal hemorrhoids and a small erosion at the anorectal verge. It could have been this is the site of bleeding, but there was no stigmata indicating high risk for rebleed. Recommendations as above. The patient was brought to recovery room in stable condition after the procedure was terminated. Job ID: [id number]
[2020-05-12] MEDS: Furosemide 20 MG TAB PO SCH (14:21)
[2020-05-12] MEDS ORDERED: PROPOFOL 200 MG/20 ML VIAL ONE (15:53)
--- NOTE | 2020-05-12 16:14 | PDOC.NEPPN ---
- Subjective Encounter Date: 05/12/20 Subjective: Seen in follow up for HORTENCIA on CKD. Had endoscopic evaluation earlier today for evaluation of hematochezia. No new problem - Objective Vital Signs & Weight: Vital Signs (12 hours) Temp Pulse BP Pulse Ox 05/12/20 15:18 99.0 F 05/12/20 14:22 89 152/79 H 05/12/20 12:00 152/79 H 05/12/20 10:35 164/94 H 05/12/20 08:00 164/94 H 93 L 05/12/20 07:22 98.2 F Weight Weight 123 lb 2 oz Most Recent Monitor Data Heart Rate from ECG 93 NIBP 131/79 NIBP BP-Mean 96 Respiration from ECG 18 SpO2 93 I&O: 05/11/20 05/12/20 05/13/20 06:59 06:59 06:59 Intake Total 1131 4290 Output Total 3305 3600 Balance -2174 690 Result Diagrams: 05/12/20 04:15 05/12/20 04:15 Nephrology ROS - Medication Medications: Active Medications Generic Name Dose Route Start Last Admin Trade Name Nateq PRN Reason Stop Dose Admin Aspirin 81 mg 05/09/20 09:00 05/12/20 11:53 Aspirin 81 Mg Enteric Coated Tablet PO 81 mg DAILY ESTHER Administration Carvedilol 25 mg 05/09/20 09:00 05/12/20 09:16 Carvedilol 25 Mg Tab PO 25 mg BID ESTHER Administration Ferrous Sulfate 325 mg 05/09/20 08:00 05/12/20 08:54 Ferrous Sulfate 325 Mg Tab PO Not Given QA- ESTHER Folic Acid 1 mg 05/09/20 09:00 05/12/20 11:52 Folic Acid 1 Mg Tab PO 1 mg DAILY ESTHER Administration Furosemide 40 mg 05/10/20 09:00 05/12/20 14:21 Furosemide 20 Mg Tab PO 40 mg 0900,1400 ESTHER Administration Hydralazine HCl 25 mg 05/12/20 06:13 05/12/20 14:22 Hydralazine 25 Mg Tab PO 25 mg TID ESTHER Administration Sodium Chloride 1,000 mls @ 50 mls/hr 05/11/20 09:15 05/12/20 04:14 Normal Saline 0.9% IV Not Given .Q20H ESTHER Iron/Minerals/Multivitamins 1 tab 05/09/20 09:00 05/12/20 11:52 Multivitamin W/ Minerals 1 Tab PO 1 tab DAILY ESTHER Administration Isosorbide Dinitrate 10 mg 05/11/20 09:00 05/12/20 14:21 Isosorbide Dinitrate 20 Mg Tab PO 10 mg TID ESTHER Administration Levetiracetam 500 mg 05/09/20 09:00 05/12/20 09:16 Levetiracetam 500 Mg Tab PO 500 mg BID ESTHER Administration Lorazepam 1 mg 05/08/20 21:12 05/10/20 22:20 Lorazepam 2 Mg/Ml Vial SLOW IVP 1 mg Q1H PRN Administration Alcohol Withdrawal Nicotine 14 mg 05/08/20 21:00 05/11/20 21:37 Nicotine 14 Mg Patch TD 14 mg Q24HR ESTHER Administration Pantoprazole Sodium 40 mg 05/11/20 09:00 05/12/20 11:52 Pantoprazole 40 Mg Tab PO 40 mg BID ESTHER Administration Sertraline HCl 50 mg 05/09/20 09:00 05/12/20 11:52 Sertraline Hcl 25 Mg Tab PO 50 mg DAILY ESTHER Administration Sodium Bicarbonate 650 mg 05/11/20 09:00 05/12/20 11:53 Sodium Bicarbonate Tab 325 Mg Tab PO 650 mg BID ESTHER Administration Sodium Chloride 10 ml 05/09/20 09:00 05/12/20 11:54 Flush - Normal Saline 10 Ml Syringe IVF 10 ml Q12HR ESTHER Administration Thiamine HCl 100 mg 05/09/20 09:00 05/12/20 11:53 Thiamine 100 Mg Tab PO 100 mg DAILY ESTHER Administration - Exam General Appearance: awake alert General - other findings: cachetic Eye: anicteric sclera ENT: normocephalic atraumatic Neck: supple, no JVD Respiratory - other findings: fair air entry bilaterally with no obvious crackles Cardiovascular: RRR Gastrointestinal: soft, non-distended, normal bowel sounds Extremities: no edema Neurological: CN's grossly intact Musculoskeletal: diffuse muscle atrophy Nephrology Results - Labs Result Diagrams: 05/12/20 04:15 05/12/20 04:15 Lab results: WBC 4.0 thou/uL (4.8-10.8) L 05/12/20 04:15 Hgb 8.1 g/dL (12.0-16.0) L 05/12/20 04:15 Hct 25.2 % (36.0-47.0) L 05/12/20 04:15 MCV 96.1 fL (78.0-98.0) 05/12/20 04:15 Plt Count 138 thou/uL (130-400) 05/12/20 04:15 Neutrophils % 65.1 % (42.0-75.0) 05/11/20 19:08 ABG pH 7.21 (7.35-7.45) L* 05/09/20 11:48 ABG pCO2 58.0 mmHg (35.0-45.0) H 05/09/20 11:48 ABG pO2 74.7 mmHg (> 80.0) 05/09/20 11:48 Sodium 140 mmol/L (136-145) 05/12/20 04:15 Potassium 4.3 mmol/L (3.5-5.1) 05/12/20 04:15 Chloride 105 mmol/L (98-107) 05/12/20 04:15 Carbon Dioxide 25 mmol/L (23-31) 05/12/20 04:15 BUN 51 mg/dL (9.8-20.1) H 05/12/20 04:15 Creatinine 2.57 mg/dL (0.6-1.1) H 05/12/20 04:15 Glucose 75 mg/dL (80-115) L 05/12/20 04:15 Calcium 7.9 mg/dL (7.8-10.44) 05/12/20 04:15 Total Bilirubin 0.4 mg/dL (0.2-1.2) 05/09/20 04:11 AST 12 U/L (5-34) 05/09/20 04:11 ALT Less than 7 U/L (8-55) L 05/09/20 04:11 Alkaline Phosphatase 73 U/L (40-110) 05/09/20 04:11 CK-MB (CK-2) 2.1 ng/mL (0-6.6) 05/08/20 18:39 Troponin I 0.048 ng/mL (< 0.028) H 05/09/20 08:25 B-Natriuretic Peptide 5656.2 pg/mL (0-100) H 05/08/20 18:39 Serum Total Protein 6.8 g/dL (6.0-8.3) 05/09/20 04:11 Albumin 2.6 g/dL (3.4-4.8) L 05/12/20 04:15 Urine Ketones Negative mg/dL (Negative) 05/10/20 09:44 Urine Blood Trace (Negative) A 05/10/20 09:44 Urine Nitrite Negative (Negative) 05/10/20 09:44 Ur Leukocyte Esterase 75 Gunner/uL (Negative) A 05/10/20 09:44 Urine RBC 4-6 HPF (0-3) A 05/10/20 09:44 Urine WBC 0-3 HPF (0-3) 05/10/20 09:44 Ur Squamous Epith Cells 0-3 HPF (0-3) 05/10/20 09:44 Urine Bacteria 1+ HPF (None Seen) A 05/10/20 09:44 Nephrology AP PN - Plan HORTENCIA: Creat today is 2.95. Was 2.47 on admission. Due to hemodynamic factors related to cardiac decompensation and aggressive diuretic therapy. FeUrea of 17 is consistent. Creat is trending down with albumin and holding of diuretic. Metabolic acidosis Hyperkalemia: resolved CKD stage 3. recent baseline creat ranges from 1.5 to 1.8 Acute on chronic anemia. Hb is down from 10 to 8. Due to GI bleeding. S/p Blood transfusion. Acute GI bleeding/Hematochezia. S/p EGD and Colonoscopy. Thought to be due to diveticular bleed. HTN: Control is suboptimal Hypoalnuminemia Chronic alcohol abuse. PCM Physical deconditioning. Plam Increase hydralazine to 25 tid. Continue to hold diuretic as patient is euvolemic and oral intake is decreased. GI bleeding evaluation and treatment/transfusion as per primary attending and GI. Repeat renal function the am.
[2020-05-12] MEDS: Nicotine 14 MG PATCH TD SCH (21:03)
[2020-05-12] MEDS ORDERED: diphenhydrAMINE 50 MG CAP PO SCH (23:30)
[2020-05-13 06:07] LABS: #Eosinphils 0.2 thou/uL (0.0-0.7); #Lymphocytes 0.7 thou/uL (1.20-3.40); #Monocytes 0.3 thou/uL (0.11-0.59); #Neutrophils 2.6 thou/uL (1.40-6.50); %Basophils 0.2 % (0.0-1.0); %Eosinophils 4.6 % (0.0-10.0); %Monocytes 8.5 % (0.0-10.0); %Neutrophils 68.8 % (42.0-75.0); Hemoglobin 7.3 g/dL (12.0-16.0); Mean Corpuscular HGB CONC 32.5 g/dL (32.0-36.0); Mean Corpuscular Hemoglobin 31.7 pg (27.0-31.0); Mean Corpuscular Volume 97.4 fL (78.0-98.0); Mean Platelet Volume 7.8 fL (7.4-10.4); Platelet Count 147 thou/uL (130-400); RBC Distribution Width 16.8 % (11.5-14.5); White Blood Cell (WBC) Count 3.7 thou/uL (4.8-10.8)
[2020-05-13 06:27] LABS: Anion Gap 14 mmol/L (10-20); BUN (Urea Nitrogen) 47 mg/dL (9.8-20.1); Calc. Creatinine Clearance 20 mL/min (70-130); Carbon Dioxide 26 mmol/L (23-31); Chloride 105 mmol/L (98-107); Estimated GFR-MDRD 23; Glucose 80 mg/dL (80-115); Magnesium 1.5 mg/dL (1.6-2.6); Potassium 3.9 mmol/L (3.5-5.1); Sodium 141 mmol/L (136-145)
[2020-05-13] MEDS ORDERED: Magnesium 2 GM/50 ML 2 GM in Premix Bag 1 BAG IVPB SCH (08:00)
[2020-05-13] MEDS: Sodium Bicarbonate Tab 325 MG TAB PO SCH ×2 (09:11→21:29)
[2020-05-13] MEDS: Aspirin 81 mg Enteric Coated Tablet PO SCH (09:11)
[2020-05-13] MEDS: Isosorbide Dinitrate 20 MG TAB PO SCH ×3 (09:12→21:29)
[2020-05-13] MEDS: hydrALAZINE 25 MG TAB PO SCH ×3 (09:13→21:28)
[2020-05-13] MEDS: Multivitamin W/ Minerals 1 TAB PO SCH (09:14)
[2020-05-13] MEDS: Thiamine 100 MG TAB PO SCH (09:14)
[2020-05-13] MEDS: levETIRAcetam 500 MG TAB PO SCH ×2 (09:14→21:29)
[2020-05-13] MEDS: Folic Acid 1 MG TAB PO SCH (09:14)
[2020-05-13] MEDS: Ferrous Sulfate 325 MG TAB PO SCH (09:14)
[2020-05-13] MEDS: Carvedilol 25 MG TAB PO SCH ×2 (09:15→21:29)
--- NOTE | 2020-05-13 09:15 | PDOC.FM ---
- Subjective Subjective: Patient resting, voices no complaints this morning. Denies being in any pain. No episodes of rectal bleeding noted overnight. Did have some mild itching yesterday evening, resolved with Benadryl. - Objective MAR Reviewed: Yes Vital Signs & Weight: Vital Signs (12 hours) Temp BP Pulse Ox 05/13/20 08:00 96 05/13/20 07:46 99.6 F 05/13/20 07:44 160/89 H 05/13/20 07:26 93 L 05/13/20 04:03 97.4 F L 05/12/20 23:38 99.3 F Weight Weight 57.017 kg Most Recent Monitor Data Heart Rate from ECG 90 NIBP 160/92 NIBP BP-Mean 114 Respiration from ECG 21 SpO2 94 I&O: 05/12/20 05/13/20 05/14/20 06:59 06:59 06:59 Intake Total 4290 1629 Output Total 3600 3550 Balance 690 -1921 Result Diagrams: 05/13/20 05:30 05/13/20 05:30 Phys Exam - Physical Examination Constitutional: NAD HEENT: moist MMs, sclera anicteric Neck: no JVD, supple, full ROM Respiratory: clear to auscultation bilateral Cardiovascular: RRR, no significant murmur Gastrointestinal: soft, non-tender, no distention, positive bowel sounds Musculoskeletal: no edema, pulses present Neurological: moves all 4 limbs Psychiatric: normal affect Skin: no rash Dx/Plan (1) Acute respiratory failure with hypoxia Code(s): J96.01 - ACUTE RESPIRATORY FAILURE WITH HYPOXIA Status: Acute (2) Heart failure with reduced ejection fraction Code(s): I50.20 - UNSPECIFIED SYSTOLIC (CONGESTIVE) HEART FAILURE Status: Chronic (3) Pericardial effusion Code(s): I31.3 - PERICARDIAL EFFUSION (NONINFLAMMATORY) Status: Acute (4) Acute kidney injury superimposed on CKD Code(s): N17.9 - ACUTE KIDNEY FAILURE, UNSPECIFIED; N18.9 - CHRONIC KIDNEY DISEASE, UNSPECIFIED Status: Acute (5) Lower GI bleeding Code(s): K92.2 - GASTROINTESTINAL HEMORRHAGE, UNSPECIFIED Status: Acute (6) Alcohol abuse Code(s): F10.10 - ALCOHOL ABUSE, UNCOMPLICATED Status: Chronic - Plan Plan: 69 yo F admitted for trouble breathing: #Acute hypoxic respiratory failure 2/2 HFrEF exacerbation, improving - COVID neg - CXR: bilateral pleural effusion, repeat 05/11 shows slight interval worsening of CHF - Right thoracentesis 05/09: transudative effusion -effusion culture negative - currently holding Lasix d/t HORTENCIA - off BIPAP, intermittently tolerating room air vs n/c - Pulm consulted, Dr. Hernandez, appreciate recs #HORTENCIA on CKD4 -Cr 2.4 on admission, was 1.8 on 02/23 -Cr 2.48 this AM -possibly worsening CKD -consult Nephro, Dr. Buitrago, appreciate recs -urine studies completed, FeNA of 4.9% suggestive of post-obstructive process -Renal ultrasound relatively normal, no signs of stone or obstruction -will hold diuresis and Lisinopril -Hydralazine and Isosorbide mononitrate, Albumin suppl. -start Alkali treatment -Fluid overloaded, hx of HF -continue to monitor -hold home lisinopril, Lasix #GI Bleeding, suspect lower GI source -bright red blood per rectum noted 05/11 AM -Hgb 10.2 > 7.0 on 05/11, required transfusion of 2 u PRBCs -Hgb initially 8.1 post-transfusion -Hgb 7.3 this morning, will transfuse 1 additional unit PRBCs -consult GI, Dr. Dejesus, appreciate recs -Colonoscopy and EGD performed with Dr. Smyth on 05/12, findings of herring-div erticulosis, no signs of active bleeding -suggest bleeding episode was result of diverticuli bleed that has since self-resolved -place on NPO, additional IV Protonix given 05/11 -continue home Protonix PO BID #Pericardial effusion -Consult CV Surgery, Dr. Dunn, appreciate recs -read as 1 cm, mainly dependent, effusion -no intervention needed at this time #HTN - daily weight, strict I/Os, fluid restrict - holding home lasix 40mg PO BID due to HORTENCIA -on Hydralazine and Isosorbide mononitrate per Nephrology recs #Hyperkalemia, resolved -admission K5.5 > 4.5 on 05/11 #Acute encephalopathy, resolved #Seizure disorder - now AxO x3 - continue home keppra #Hx of Alcohol abuse - ASE protocol, ativan prn, librium taper, thiamine - last drink at 1100 on 05/07/2020 #Tobacco abuse - nicotine patch #Macrocytic anemia - on multivitamin #Depression - continue home meds Diet: HH VTE: SCDs Code: Full PCP: Eva Thapa Social: Was previously at SNU and was discharged 1 day prior to hospital admission. PT/OT consulted, recommend possible rehab vs SNU. Dispo: Admitted to inpatient in IMCU unit. Plan to transfer to medical unit today. Anticipate discharge in <48hrs. Addendum - Attending - Attending Attestation Date/Time: 05/13/20 5418 I personally evaluated the patient and discussed the management with Dr. Chiang. I agree with the History, Examination, Assessment and Plan documented above with any addition or exceptions noted below.
--- NOTE | 2020-05-13 09:22 | PDOC.NEPPN ---
- Subjective Encounter Date: 05/13/20 Encounter Time: 09:18 Subjective: Seen and examined. No new problem. tolerating oral intake. No further rectal bleeding. - Objective Vital Signs & Weight: Vital Signs (12 hours) Temp Pulse BP Pulse Ox 05/13/20 09:13 93 160/89 H 05/13/20 08:00 96 05/13/20 07:46 99.6 F 05/13/20 07:44 160/89 H 05/13/20 07:26 93 L 05/13/20 04:03 97.4 F L 05/12/20 23:38 99.3 F Weight Weight 125 lb 11.2 oz Most Recent Monitor Data Heart Rate from ECG 90 NIBP 160/92 NIBP BP-Mean 114 Respiration from ECG 21 SpO2 94 I&O: 05/12/20 05/13/20 05/14/20 06:59 06:59 06:59 Intake Total 4290 1629 Output Total 3600 3550 Balance 690 -0807 Result Diagrams: 05/13/20 05:30 05/13/20 05:30 Nephrology ROS - Medication Medications: Active Medications Generic Name Dose Route Start Last Admin Trade Name Freq PRN Reason Stop Dose Admin Aspirin 81 mg 05/09/20 09:00 05/13/20 09:11 Aspirin 81 Mg Enteric Coated Tablet PO 81 mg DAILY [facility] Administration Carvedilol 25 mg 05/09/20 09:00 05/13/20 09:15 Carvedilol 25 Mg Tab PO 25 mg BID ESTHER Administration Ferrous Sulfate 325 mg 05/09/20 08:00 05/13/20 09:14 Ferrous Sulfate 325 Mg Tab PO 325 mg [facility] Administration Folic Acid 1 mg 05/09/20 09:00 05/13/20 09:14 Folic Acid 1 Mg Tab PO 1 mg DAILY ESTHER Administration Hydralazine HCl 25 mg 05/12/20 06:13 05/13/20 09:13 Hydralazine 25 Mg Tab PO 25 mg TID ESTHER Administration Magnesium Sulfate 2 gm/ Device 50 mls @ 50 mls/hr 05/13/20 08:00 05/13/20 09:16 IVPB 05/13/20 10:00 50 mls NOW ESTHER Administration Iron/Minerals/Multivitamins 1 tab 05/09/20 09:00 05/13/20 09:14 Multivitamin W/ Minerals 1 Tab PO 1 tab DAILY ESTHER Administration Isosorbide Dinitrate 10 mg 05/11/20 09:00 05/13/20 09:12 Isosorbide Dinitrate 20 Mg Tab PO 10 mg TID ESTHER Administration Levetiracetam 500 mg 05/09/20 09:00 05/13/20 09:14 Levetiracetam 500 Mg Tab PO 500 mg BID ESTHER Administration Lorazepam 1 mg 05/08/20 21:12 05/10/20 22:20 Lorazepam 2 Mg/Ml Vial SLOW IVP 1 mg Q1H PRN Administration Alcohol Withdrawal Nicotine 14 mg 05/08/20 21:00 05/12/20 21:03 Nicotine 14 Mg Patch TD 14 mg Q24HR ESTHER Administration Pantoprazole Sodium 40 mg 05/11/20 09:00 05/13/20 09:13 Pantoprazole 40 Mg Tab PO 40 mg BID ESTHER Administration Sertraline HCl 50 mg 05/09/20 09:00 05/13/20 09:14 Sertraline Hcl 25 Mg Tab PO 50 mg DAILY ESTHER Administration Sodium Bicarbonate 650 mg 05/11/20 09:00 05/13/20 09:11 Sodium Bicarbonate Tab 325 Mg Tab PO 650 mg BID ESTHER Administration Sodium Chloride 10 ml 05/09/20 09:00 05/13/20 09:15 Flush - Normal Saline 10 Ml Syringe IVF 10 ml Q12HR ESTHER Administration Thiamine HCl 100 mg 05/09/20 09:00 05/13/20 09:14 Thiamine 100 Mg Tab PO 100 mg DAILY ESTHER Administration - Exam General Appearance: awake alert General - other findings: chronically ill looking and cachetic Eye: anicteric sclera ENT: normocephalic atraumatic, moist mucosa Neck: supple, symmetric, no JVD Respiratory: no tachypnea Respiratory - other findings: fair air entry bilaterally Cardiovascular: RRR Gastrointestinal: soft, non-tender, non-distended, normal bowel sounds Extremities: no edema Neurological: CN's grossly intact Musculoskeletal: generalized weakness, diffuse muscle atrophy PSYCH: A&O x 3 Nephrology Results - Labs Result Diagrams: 05/13/20 05:30 05/13/20 05:30 Lab results: WBC 3.7 thou/uL (4.8-10.8) L 05/13/20 05:30 Hgb 7.3 g/dL (12.0-16.0) L 05/13/20 05:30 Hct 22.4 % (36.0-47.0) L 05/13/20 05:30 MCV 97.4 fL (78.0-98.0) 05/13/20 05:30 Plt Count 147 thou/uL (130-400) 05/13/20 05:30 Neutrophils % 68.8 % (42.0-75.0) 05/13/20 05:30 ABG pH 7.21 (7.35-7.45) L* 05/09/20 11:48 ABG pCO2 58.0 mmHg (35.0-45.0) H 05/09/20 11:48 ABG pO2 74.7 mmHg (> 80.0) 05/09/20 11:48 Sodium 141 mmol/L (136-145) 05/13/20 05:30 Potassium 3.9 mmol/L (3.5-5.1) 05/13/20 05:30 Chloride 105 mmol/L (98-107) 05/13/20 05:30 Carbon Dioxide 26 mmol/L (23-31) 05/13/20 05:30 BUN 47 mg/dL (9.8-20.1) H 05/13/20 05:30 Creatinine 2.48 mg/dL (0.6-1.1) H 05/13/20 05:30 Glucose 80 mg/dL (80-115) 05/13/20 05:30 Calcium 8.0 mg/dL (7.8-10.44) 05/13/20 05:30 Total Bilirubin 0.4 mg/dL (0.2-1.2) 05/09/20 04:11 AST 12 U/L (5-34) 05/09/20 04:11 ALT Less than 7 U/L (8-55) L 05/09/20 04:11 Alkaline Phosphatase 73 U/L (40-110) 05/09/20 04:11 CK-MB (CK-2) 2.1 ng/mL (0-6.6) 05/08/20 18:39 Troponin I 0.048 ng/mL (< 0.028) H 05/09/20 08:25 B-Natriuretic Peptide 5656.2 pg/mL (0-100) H 09/19/20 18:39 Serum Total Protein 6.8 g/dL (6.0-8.3) 05/09/20 04:11 Albumin 2.6 g/dL (3.4-4.8) L 05/12/20 04:15 Urine Ketones Negative mg/dL (Negative) 05/10/20 09:44 Urine Blood Trace (Negative) A 05/10/20 09:44 Urine Nitrite Negative (Negative) 05/10/20 09:44 Ur Leukocyte Esterase 75 Gunner/uL (Negative) A 05/10/20 09:44 Urine RBC 4-6 HPF (0-3) A 05/10/20 09:44 Urine WBC 0-3 HPF (0-3) 05/10/20 09:44 Ur Squamous Epith Cells 0-3 HPF (0-3) 05/10/20 09:44 Urine Bacteria 1+ HPF (None Seen) A 05/10/20 09:44 Nephrology AP PN - Plan HORTENCIA: Creat today is 2.95. Was 2.47 on admission. Due to hemodynamic factors related to cardiac decompensation and aggressive diuretic therapy. Metabolic acidosis Hyperkalemia: resolved CKD stage 3. recent baseline creat ranges from 1.5 to 1.8 Acute blood loss anemia superimposed on chronic anemia. S/p Blood transfusion. Acute GI bleeding/Hematochezia. S/p EGD and Colonoscopy. Thought to be due to diveticular bleed. HTN: Control is suboptimal Hypoalnuminemia Chronic alcohol abuse. PCM Physical deconditioning. Plam Increase isosorbide to 20 and continue hydralazine to 25 tid. DC IVF and lasix [place] oral intake advised Monitor intake and output GI bleeding evaluation and treatment/transfusion as per primary attending and GI. Repeat renal function the am.
[2020-05-13] MEDS ORDERED: Isosorbide Dinitrate 20 MG TAB PO SCH (09:45)
--- NOTE | 2020-05-13 09:57 | PRG ---
DATE OF SERVICE: SUBJECTIVE: Dena Oconnell this morning awake, responsive, status post upper GI endoscopy and colonoscopy. OBJECTIVE: VITAL SIGNS: Temp 99, sats are on room air, blood pressure 160/89, respirations 18, pulse 80. CHEST: No wheezing. No crackles. CARDIAC: Normal S1, S2. No gallops. LABORATORY DATA: Creatinine 2.48. White count 3000. ASSESSMENT: History of seizure disorders, GI bleed, renal failure, history of previous pancreatic mass, history of chronic obstructive pulmonary disease, cachexia. PLAN: The patient is stable enough to be transferred out of the MICU. At this stage, continue neb treatments, supportive care. Job ID: [id number]
--- NOTE | 2020-05-13 10:20 | PRG ---
DATE OF SERVICE: 05/13/2020 SUBJECTIVE: Ms. Oconnell has not had any further bowel movements, certainly no overt bleeding, since her procedure yesterday. She is tolerating her full liquid diet. There is no abdominal pain or nausea. OBJECTIVE: VITAL SIGNS: Temperature 99.6, pulse 93, blood pressure 160/89, 94% oxygen saturation on room air. GENERAL: No acute distress. HEART: Regular rate and rhythm. LUNGS: Soft, bibasilar crackles at the bases. No wheezing. No respiratory distress. ABDOMEN: Bowel sounds present. Soft, nontender to palpation. EXTREMITIES: No peripheral edema. LABORATORY STUDIES: Hemoglobin 7.3, WBC 3.7, platelets 147. INR 1.3. Sodium 141, potassium 3.9, BUN 47, creatinine 2.48, magnesium 1.5, glucose 80. ASSESSMENT/PLAN: 1. Diverticular hemorrhage, now resolved. 2. Acute blood loss anemia. The patient has had no further evidence of bleeding since her procedure yesterday. I reviewed with her that upper and lower endoscopy was negative except for pancolonic diverticulosis, so this does appear to have represented an acute diverticular bleeding episode which has now resolved. I think her diet can be further advanced today. GI will sign off. If the patient were to have significant overt rebleeding, then I would recommend getting a stat tagged RBC scan for localization to the right versus left colon. Job ID: [id number]
[2020-05-13 17:24] LABS: Hemoglobin 9.3 g/dL (12.0-16.0)
[2020-05-13] MEDS: Nicotine 14 MG PATCH TD SCH (21:31)
[2020-05-14 06:20] LABS: #Eosinphils 0.1 thou/uL (0.0-0.7); #Lymphocytes 0.7 thou/uL (1.20-3.40); #Monocytes 0.4 thou/uL (0.11-0.59); %Basophils 0.2 % (0.0-1.0); %Lymphocytes 15.4 % (21.0-51.0); %Monocytes 9.4 % (0.0-10.0); Hemoglobin 8.5 g/dL (12.0-16.0); Mean Corpuscular HGB CONC 32.1 g/dL (32.0-36.0); Mean Corpuscular Volume 96.5 fL (78.0-98.0); Mean Platelet Volume 7.3 fL (7.4-10.4); Platelet Count 162 thou/uL (130-400); RBC Distribution Width 16.4 % (11.5-14.5); Red Blood Cell (RBC) Count 2.76 mill/uL (4.20-5.40); White Blood Cell (WBC) Count 4.2 thou/uL (4.8-10.8)
[2020-05-14 06:43] LABS: Anion Gap 13 mmol/L (10-20); BUN (Urea Nitrogen) 49 mg/dL (9.8-20.1); Calc. Creatinine Clearance 18 mL/min (70-130); Calcium 8.3 mg/dL (7.8-10.44); Carbon Dioxide 27 mmol/L (23-31); Chloride 105 mmol/L (98-107); Estimated GFR-MDRD 21; Glucose 93 mg/dL (80-115); Potassium 4.4 mmol/L (3.5-5.1); Sodium 141 mmol/L (136-145)
[2020-05-14] MEDS: Sodium Bicarbonate Tab 325 MG TAB PO SCH (08:42)
[2020-05-14] MEDS: Isosorbide Dinitrate 20 MG TAB PO SCH ×2 (08:42→15:32)
[2020-05-14] MEDS: Carvedilol 25 MG TAB PO SCH (08:43)
[2020-05-14] MEDS: Aspirin 81 mg Enteric Coated Tablet PO SCH (08:43)
[2020-05-14] MEDS: Multivitamin W/ Minerals 1 TAB PO SCH (08:43)
[2020-05-14] MEDS: Ferrous Sulfate 325 MG TAB PO SCH (08:43)
[2020-05-14] MEDS: Thiamine 100 MG TAB PO SCH (08:43)
[2020-05-14] MEDS: hydrALAZINE 25 MG TAB PO SCH ×2 (08:43→15:32)
[2020-05-14] MEDS: levETIRAcetam 500 MG TAB PO SCH (08:43)
[2020-05-14] MEDS: Folic Acid 1 MG TAB PO SCH (08:44)
--- NOTE | 2020-05-14 09:07 | PDOC.FM ---
- Subjective Subjective: Patient resting, voices no complaints this morning. Denies being in any pain. No episodes of rectal bleeding noted overnight. PT/OT recommend placement at SNF, CM consulted for discharge planning. - Objective MAR Reviewed: Yes Vital Signs & Weight: Vital Signs (12 hours) Temp Pulse Resp BP BP Pulse Ox 05/14/20 08:43 95 172/88 H 05/14/20 07:12 97.8 F 95 18 172/88 H 95 05/14/20 04:29 98.3 F 93 18 164/85 H 95 05/14/20 04:00 164/85 H 05/14/20 00:08 98.2 F 96 18 159/85 H 99 05/14/20 00:00 159/85 H 05/13/20 21:28 95 166/93 H Weight Weight 57 kg Most Recent Monitor Data Heart Rate from ECG 86 NIBP 151/88 NIBP BP-Mean 109 Respiration from ECG 20 SpO2 92 I&O: 05/13/20 05/14/20 05/15/20 06:59 06:59 06:59 Intake Total 1629 450 Output Total 3550 Balance -1921 450 Result Diagrams: 05/14/20 06:05 05/14/20 06:05 Phys Exam - Physical Examination Constitutional: NAD HEENT: moist MMs, sclera anicteric Neck: no JVD, supple, full ROM Respiratory: clear to auscultation bilateral Cardiovascular: RRR, no significant murmur Gastrointestinal: soft, non-tender, no distention Musculoskeletal: pulses present Neurological: non-focal, moves all 4 limbs Psychiatric: normal affect Skin: no rash Dx/Plan (1) Acute respiratory failure with hypoxia Code(s): J96.01 - ACUTE RESPIRATORY FAILURE WITH HYPOXIA Status: Acute (2) Heart failure with reduced ejection fraction Code(s): I50.20 - UNSPECIFIED SYSTOLIC (CONGESTIVE) HEART FAILURE Status: Chronic (3) Pericardial effusion Code(s): I31.3 - PERICARDIAL EFFUSION (NONINFLAMMATORY) Status: Acute (4) Acute kidney injury superimposed on CKD Code(s): N17.9 - ACUTE KIDNEY FAILURE, UNSPECIFIED; N18.9 - CHRONIC KIDNEY DISEASE, UNSPECIFIED Status: Acute (5) Lower GI bleeding Code(s): K92.2 - GASTROINTESTINAL HEMORRHAGE, UNSPECIFIED Status: Acute (6) Alcohol abuse Code(s): F10.10 - ALCOHOL ABUSE, UNCOMPLICATED Status: Chronic - Plan Plan: 69 yo F admitted for trouble breathing: #Acute hypoxic respiratory failure 2/2 HFrEF exacerbation, improving - COVID neg - CXR: bilateral pleural effusion, repeat 05/11 shows slight interval worsening of CHF, clinically stable - Right thoracentesis 05/09: transudative effusion -effusion culture negative - currently holding Lasix d/t HORTENCIA - off BIPAP, currently tolerating room air - Pulm consulted, Dr. Hernandez, appreciate recs #HORTENCIA on CKD4 -Cr 2.4 on admission, was 1.8 on 02/23 -Cr 2.72 this AM -possibly worsening CKD -consult Nephro, Dr. Buitrago, appreciate recs -urine studies completed, FeNA of 4.9% suggestive of post-obstructive process -Renal ultrasound relatively normal, no signs of stone or obstruction -will hold diuresis and Lisinopril -Hydralazine and Isosorbide mononitrate, Albumin suppl. -Alkali treatment -Fluid overloaded, hx of HF -continue to monitor -hold home lisinopril, Lasix #GI Bleeding, suspect lower GI source -bright red blood per rectum noted 05/11 AM -Hgb 10.2 > 7.0 on 05/11, required transfusion of 2 u PRBCs -Hgb initially 8.1 post-transfusion -Hgb 7.3 on 05/13, transfused 1 additional unit PRBCs, post Hgb 9.3 -oral iron replacement -consult GI, Dr. Dejesus, appreciate recs -Colonoscopy and EGD performed with Dr. Smyth on 05/12, findings of herring- diverticulosis, no signs of active bleeding -suggest bleeding episode was result of diverticuli bleed that has since self-resolved -if re-bleed then will check stat tagged RBC scan to determine if right or left colon in origin -additional IV Protonix given 05/11 -continue home Protonix PO BID #Pericardial effusion -Consult CV Surgery, Dr. Dunn, appreciate recs -read as 1 cm, mainly dependent, effusion -no intervention needed at this time #HTN - daily weight, strict I/Os, fluid restrict - holding home lasix 40mg PO BID due to HORTENCIA -on Hydralazine and Isosorbide mononitrate per Nephrology recs #Hyperkalemia, resolved -admission K5.5 > 4.5 on 05/11 #Acute encephalopathy, resolved #Seizure disorder - now AxO x3 - continue home keppra #Hx of Alcohol abuse - ASE protocol, ativan prn, librium taper, thiamine - last drink at 1100 on 05/07/2020 #Tobacco abuse - nicotine patch #Macrocytic anemia - on multivitamin #Depression - continue home meds Diet: HH VTE: SCDs Code: Full PCP: Eva Thapa Social: Was previously at SNU and was discharged 1 day prior to hospital admission. PT/OT consulted, recommend possible rehab vs SNU. Dispo: Admitted to inpatient in IMCU unit. Continue to monitor respiratory and renal status. Awaiting placement at SNU. Anticipate discharge in <48hrs. Addendum - Attending - Attending Attestation Date/Time: 05/14/20 0374 I personally evaluated the patient and discussed the management with Dr. Chiang. I agree with the History, Examination, Assessment and Plan documented above with any addition or exceptions noted below.
--- NOTE | 2020-05-14 09:27 | PDOC.NEPPN ---
- Subjective Encounter Date: 05/14/20 Encounter Time: 09:25 Subjective: Seen in follow up for HORTENCIA on CKd. No new problem. Still very weakn. Oral intake is fair. No nausea or vomiting - Objective Vital Signs & Weight: Vital Signs (12 hours) Temp Pulse Resp BP BP Pulse Ox 05/14/20 08:43 95 172/88 H 05/14/20 07:12 97.8 F 95 18 172/88 H 95 05/14/20 04:29 98.3 F 93 18 164/85 H 95 05/14/20 04:00 164/85 H 05/14/20 00:08 98.2 F 96 18 159/85 H 99 05/14/20 00:00 159/85 H 05/13/20 21:28 95 166/93 H Weight Weight 125 lb 10.616 oz Most Recent Monitor Data Heart Rate from ECG 86 NIBP 151/88 NIBP BP-Mean 109 Respiration from ECG 20 SpO2 92 I&O: 05/13/20 05/14/20 05/15/20 06:59 06:59 06:59 Intake Total 1629 450 Output Total 3550 Balance -1921 450 Result Diagrams: 05/14/20 06:05 05/14/20 06:05 Nephrology ROS - Medication Medications: Active Medications Generic Name Dose Route Start Last Admin Trade Name Josette PRN Reason Stop Dose Admin Aspirin 81 mg 05/09/20 09:00 05/14/20 08:43 Aspirin 81 Mg Enteric Coated Tablet PO 81 mg DAILY [facility]HER Administration Carvedilol 25 mg 05/09/20 09:00 05/14/20 08:43 Carvedilol 25 Mg Tab PO 25 mg BID ESTHER Administration Ferrous Sulfate 325 mg 05/09/20 08:00 05/14/20 08:43 Ferrous Sulfate 325 Mg Tab PO 325 mg QAM-WM ESTHER Administration Folic Acid 1 mg 05/09/20 09:00 05/14/20 08:44 Folic Acid 1 Mg Tab PO 1 mg DAILY ESTHER Administration Hydralazine HCl 25 mg 05/12/20 06:13 05/14/20 08:43 Hydralazine 25 Mg Tab PO 25 mg TID ESTHER Administration Iron/Minerals/Multivitamins 1 tab 05/09/20 09:00 05/14/20 08:43 Multivitamin W/ Minerals 1 Tab PO 1 tab DAILY ESTHER Administration Isosorbide Dinitrate 20 mg 09/24/20 15:00 05/14/20 08:42 Isosorbide Dinitrate 20 Mg Tab PO 20 mg TID ESTHER Administration Levetiracetam 500 mg 05/09/20 09:00 05/14/20 08:43 Levetiracetam 500 Mg Tab PO 500 mg BID ESTHER Administration Lorazepam 1 mg 05/08/20 21:12 05/10/20 22:20 Lorazepam 2 Mg/Ml Vial SLOW IVP 1 mg Q1H PRN Administration Alcohol Withdrawal Nicotine 14 mg 05/08/20 21:00 05/13/20 21:31 Nicotine 14 Mg Patch TD 14 mg Q24HR ESTHER Administration Pantoprazole Sodium 40 mg 05/11/20 09:00 05/14/20 08:42 Pantoprazole 40 Mg Tab PO 40 mg BID ESTHER Administration Sertraline HCl 50 mg 05/09/20 09:00 05/14/20 08:43 Sertraline Hcl 25 Mg Tab PO 50 mg DAILY ESTHER Administration Sodium Bicarbonate 650 mg 05/11/20 09:00 05/14/20 08:42 Sodium Bicarbonate Tab 325 Mg Tab PO 650 mg BID ESTHER Administration Sodium Chloride 10 ml 05/09/20 09:00 05/14/20 08:44 Flush - Normal Saline 10 Ml Syringe IVF 10 ml Q12HR ESTHER Administration Thiamine HCl 100 mg 05/09/20 09:00 05/14/20 08:43 Thiamine 100 Mg Tab PO 100 mg DAILY ESTHER Administration - Exam General Appearance: awake alert General - other findings: chronically ill looking and cachetic. ENT: normocephalic atraumatic, moist mucosa Neck: supple, symmetric, no JVD Neck - other findings: Right TLC noted Respiratory - other findings: Fair air entry bilaterally. Cardiovascular: RRR, murmur present Gastrointestinal: soft, non-tender, normal bowel sounds Extremities: no edema Neurological: CN's grossly intact Musculoskeletal: generalized weakness, diffuse muscle atrophy Nephrology Results - Labs Result Diagrams: 05/14/20 06:05 05/14/20 06:05 Lab results: WBC 4.2 thou/uL (4.8-10.8) L 05/14/20 06:05 Hgb 8.5 g/dL (12.0-16.0) L 05/14/20 06:05 Hct 26.6 % (36.0-47.0) L 05/14/20 06:05 MCV 96.5 fL (78.0-98.0) 05/14/20 06:05 Plt Count 162 thou/uL (130-400) 05/14/20 06:05 Neutrophils % 72.0 % (42.0-75.0) 05/14/20 06:05 ABG pH 7.21 (7.35-7.45) L* 05/09/20 11:48 ABG pCO2 58.0 mmHg (35.0-45.0) H 05/09/20 11:48 ABG pO2 74.7 mmHg (> 80.0) 05/09/20 11:48 Sodium 141 mmol/L (136-145) 05/14/20 06:05 Potassium 4.4 mmol/L (3.5-5.1) 05/14/20 06:05 Chloride 105 mmol/L (98-107) 05/14/20 06:05 Carbon Dioxide 27 mmol/L (23-31) 05/14/20 06:05 BUN 49 mg/dL (9.8-20.1) H 05/14/20 06:05 Creatinine 2.72 mg/dL (0.6-1.1) H 05/14/20 06:05 Glucose 93 mg/dL (80-115) 05/14/20 06:05 Calcium 8.3 mg/dL (7.8-10.44) 05/14/20 06:05 Total Bilirubin 0.4 mg/dL (0.2-1.2) 05/09/20 04:11 AST 12 U/L (5-34) 05/09/20 04:11 ALT Less than 7 U/L (8-55) L 05/09/20 04:11 Alkaline Phosphatase 73 U/L (40-110) 05/09/20 04:11 CK-MB (CK-2) 2.1 ng/mL (0-6.6) 05/08/20 18:39 Troponin I 0.048 ng/mL (< 0.028) H 05/09/20 08:25 B-Natriuretic Peptide 5656.2 pg/mL (0-100) H 05/08/20 18:39 Serum Total Protein 6.8 g/dL (6.0-8.3) 05/09/20 04:11 Albumin 2.6 g/dL (3.4-4.8) L 05/12/20 04:15 Urine Ketones Negative mg/dL (Negative) 05/10/20 09:44 Urine Blood Trace (Negative) A 05/10/20 09:44 Urine Nitrite Negative (Negative) 05/10/20 09:44 Ur Leukocyte Esterase 75 Gunner/uL (Negative) A 05/10/20 09:44 Urine RBC 4-6 HPF (0-3) A 05/10/20 09:44 Urine WBC 0-3 HPF (0-3) 05/10/20 09:44 Ur Squamous Epith Cells 0-3 HPF (0-3) 05/10/20 09:44 Urine Bacteria 1+ HPF (None Seen) A 05/10/20 09:44 Nephrology AP PN - Plan HORTENCIA:Creat is up today Was 2.47 on admission. Due to hemodynamic factors related to cardiac decompensation and aggressive diuretic therapy. Metabolic acidosis Hyperkalemia: resolved CKD stage 3. recent baseline creat ranges from 1.5 to 1.8 Acute blood loss anemia superimposed on chronic anemia. S/p Blood transfusion. Acute GI bleeding/Hematochezia. S/p EGD and Colonoscopy. Thought to be due to diveticular bleed. HTN: Control is still suboptimal. Alcohol withdrawal is a concern. Hypoalnuminemia Chronic alcohol abuse. PCM Physical deconditioning. Plam Give 1 liter of NS Continue antihypertensives. Change timing to q8h [place] oral intake advised Monitor intake and output Repeat renal function the am.
[2020-05-14] MEDS ORDERED: Sodium Chloride 0.9% 1,000 ML IV SCH (09:30)
--- NOTE | 2020-05-14 09:54 | PRG ---
DATE OF SERVICE: 05/14/2020 SUBJECTIVE: Dena Oconnell is a cachectic female, who was transferred from the MICU to medical floor, says she is feeling better, still weak. OBJECTIVE: VITAL SIGNS: Temperature 97, pulse 95, saturations are 95% on room air, blood pressure 170/88. CHEST: Decreased breath sounds. No wheezing. CARDIAC: Normal S1, S2. No gallops. LABORATORY DATA: Creatinine 2.72, H and H are 8 and 26. Last chest x-ray showed pleural effusion. IMPRESSION: 1. Gastrointestinal bleed. 2. Cachectic, bilateral pleural effusion, transudate, renal failure, chronic obstructive pulmonary disease. PLAN: Not much to offer at this stage. Continue supportive care, PT, eventually placement and a chest x-ray. Job ID: [id number]
[2020-05-14 17:14] VITALS: BP 157/70; TEMP 98.2
--- NOTE | 2020-05-18 03:49 | DIS ---
DATE OF ADMISSION: 05/08/2020 DATE OF DISCHARGE: 05/14/2020 CONSULTANTS: 1. Pulmonology, Dr. Saunders and Dr. Hernandez. 2. Cardiovascular Surgery, Dr. Dunn. 3. Nephrology, Dr. Buitrago. 4. GI, Dr. Dejesus and Dr. Smyth. PROCEDURES: 1. Chest x-ray on May 08, 2020: Small bilateral pleural effusions, greater on the right with fluid extending across the right lateral chest. Increased interstitial and patchy opacities of the right perihilar region. Osteopenia present. Vascular calcifications seen in the thoracic aorta. 2. Hip x-ray on May 08, 2020: No acute fracture or malalignment. Severe vascular calcifications. Small acetabular osteophyte formation. 3. Knee x-ray on May 08, 2020: Lateral soft tissue swelling without acute displaced fracture or malalignment. Advanced tricompartment degenerative change. Old proximal fibular fracture. Large lateral compartment osteophytes. 4. Venous Doppler of bilateral lower extremities: No DVT. Extensive vascular calcifications. 5. EKG on May 09, 2020: Sinus bradycardia with first-degree AV block. Prolonged QT of 520 milliseconds. 6. Chest x-ray on May 09, 2020: Interval size decrease of right layering pleural effusion. 7. Ultrasound guided thoracocentesis on May 09, 2020: Performed on right pleural effusion. Results of study were unremarkable with predominantly benign mesothelial cells present. Approximately 1.5 L was removed. 8. Chest x-ray on May 11, 2020: Interval worsening of congestive heart failure. 9. Renal ultrasound on May 11, 2020: No evidence of urinary tract obstruction. 10. Chest x-ray on May 11, 2020: Interval placement of a right IJ central line with tip in the projection of the right atrium. Bilateral pleural effusions are again seen. 11. Placement of right internal jugular central line on May 11, 2020. 12. EGD and colonoscopy on May 12, 2020, with Dr. Smyth. Findings of diverticulosis throughout the colon, small internal hemorrhoids. No overt evidence of bleeding, likely bleeding was from diverticular origin. PRIMARY DIAGNOSES: 1. Acute hypoxic respiratory failure secondary to congestive heart failure exacerbation. 2. Heart failure with reduced ejection fraction, acute exacerbation. SECONDARY DIAGNOSES: 1. Acute kidney injury on chronic kidney disease, stage 4. 2. Acute blood loss anemia secondary to diverticulosis bleeding, now resolved. 3. Pericardial effusion, small, non operative. 4. Hypertension. 5. Hyperkalemia. 6. Acute encephalopathy. 7. Seizure disorder. 8. History of alcohol abuse. 9. Tobacco abuse. 10. Macrocytic anemia. 11. Depression. DISCHARGE MEDICATIONS: 1. Folic acid 1 mg p.o. daily. 2. Aspirin 81 mg p.o. daily. 3. Pantoprazole 40 mg p.o. daily. 4. Sertraline HCl 50 mg p.o. daily. 5. Carvedilol 25 mg p.o. b.i.d. 6. Thiamine 100 mg p.o. daily. 7. Keppra 500 mg p.o. b.i.d. 8. Hydralazine 25 mg p.o. t.i.d. 9. Sodium bicarbonate 650 mg p.o. b.i.d. 10. Ferrous sulfate 325 mg p.o. q.a.m. 11. Isosorbide dinitrate 20 mg p.o. t.i.d. Discontinued Medications: Lisinopril 2.5 mg p.o. daily. HISTORY OF PRESENT ILLNESS/HOSPITAL COURSE: The patient is a 69-year-old female who presents with a past medical history of heart failure with reduced ejection fraction, alcohol and tobacco abuse, who presents to the emergency department on May 08, 2020, with worsening shortness of breath for the prior 2 days. Patient also admitted to drinking 10 shots of vodka daily with a prior drink the day before. The patient additionally complained of edema, orthopnea, and paroxysmal nocturnal dyspnea. Her most recent echocardiogram from May 2019 showed an ejection fraction of 20% to 25%. In the emergency department, the patient was given albuterol treatment, prednisone, cefepime, vancomycin, and IV normal saline bolus. The patient was then admitted to inpatient on the telemetry unit with acute hypoxic respiratory failure secondary to suspected CHF exacerbation. Patient was found on lab work to have a BNP of 5656, and a troponin of 0.074. Elevated troponin suspected to be due to a demand ischemia. Patient's COVID testing was negative. Imaging findings as above were suggestive of congestive heart failure. The patient was initially started on 40 mg of Lasix IV daily, and placed on fluid restrictions. There was a low suspicion for infection, so antibiotics were discontinued. There was some concern for more predominant edema of the right leg compared to the left. Studies above were completed with results as above, and DVT was ruled out. The patient was also noted to have an acute kidney injury with an admission creatinine of 2.4, previous baseline creatinine was 1.8. The patient was placed on ADRIANA protocol due to history of alcohol abuse, also given nicotine patch given tobacco abuse. Overnight on May 10, 2020, the patient had increased somnolence and ABG was worsening, she also became hypothermic to 96.2 degrees Fahrenheit. A code green was called, and the patient was transferred to the ICU, and placed on BiPAP and warming device. An ultrasound-guided thoracentesis was performed by solution make up operator, Dr. Saunders, who removed 1.5 L of serosanguineous fluid. Studies resulted with normal findings of this fluid. On May 11, 2020, Nephrology was consulted for worsening renal status. The patient was started on albumin therapy, low-dose hydralazine, and isosorbide. Home lisinopril and Lasix were discontinued. The patient was also noted on May 11 to have several episodes of bright red blood per rectum including blood clots. She was started on Protonix. The patient continued to bleed throughout the morning with resultant tachycardia and hypotension. IV placement was lost. It was determined at this point to place a central line in the right internal jugular vein. Patient ultimately required 3 units of packed red blood cells for resuscitation. At that time, GI, Dr. Dejesus was consulted. He recommended a EGD and colonoscopy, and prep was started at that point. The patient had those studies performed by Dr. Smyth on May 12, 2020, they did not reveal any source of acute bleeding. Thus, it was thought by GI that the bleeding episode was due to diverticulosis bleeding. On May 13, the patient was stable to be transitioned out of the IMCU to the inpatient floor on the medical tower. Patient was evaluated for placement back at senior living unit where she was at prior to hospital admission. This was recommended by Physical Therapy and Occupational Therapy, however, the patient expressed her desires to return home with Home Health therapy. This was able to be arranged on May 14, 2020, and the patient was discharged home with home physical therapy and occupational therapy set up by Case Management. The patient will need to continue isosorbide and hydralazine for blood pressure management per Nephrology. They recommend discontinuing Lasix and lisinopril. The patient was given detailed instructions to return to the emergency department if any further episodes of rectal bleeding. However, hemoglobin was stable at discharge of 8.5. DISPOSITION: Stable. LOCATION: Home with Home Health. DIET: Heart healthy. ACTIVITY: As tolerated. FOLLOW UP: 1. With PCP, Dr. Thapa at [facility] in 2-3 days. 2. Follow up with cardiac rehab in 1 week. 3. Follow up with Dr. Buitrago, nephrology in 1 week. Job ID: [id number] MTDD
== END 2020-05-14 17:50 | disposition home health service (06) | DRG 280 ==
LOC: ERS 16:55 → 2NO 20:09 → CCU 05-09 08:12 → IMCU/EMU 05-10 17:35 → T4-A 05-13 17:37
PROVIDERS: ADMIT Family Medicine; ATTEND Family Medicine
PROC: 0W993ZZ Drainage of Right Pleural Cavity, Percutaneous Approach (ICD-10-PCS; principal; 2020-05-09)
PROC: 5A09357 Assistance with Respiratory Ventilation, Less than 24 Consecutive Hours, Continuous Positive Airway Pressure (ICD-10-PCS; 2020-05-09)
PROC: 02HV33Z Insertion of Infusion Device into Superior Vena Cava, Percutaneous Approach (ICD-10-PCS; 2020-05-11)
PROC: 0DJ08ZZ Inspection of Upper Intestinal Tract, Via Natural or Artificial Opening Endoscopic (ICD-10-PCS; 2020-05-12)
DX: I13.0 Hypertensive heart and chronic kidney disease with heart failure and stage 1 through stage 4 chronic kidney disease, or unspecified chronic kidney disease (principal); J96.01 Acute respiratory failure with hypoxia; I21.A1 Myocardial infarction type 2; I50.21 Acute systolic (congestive) heart failure; K57.31 Diverticulosis of large intestine without perforation or abscess with bleeding; N17.9 Acute kidney failure, unspecified; E87.2 Acidosis; Z20.828 Contact with and (suspected) exposure to other viral communicable diseases; J90 Pleural effusion, not elsewhere classified; K86.1 Other chronic pancreatitis; E46 Unspecified protein-calorie malnutrition; I31.3 Pericardial effusion (noninflammatory); D62 Acute posthemorrhagic anemia; R64 Cachexia; I42.9 Cardiomyopathy, unspecified; K64.8 Other hemorrhoids; I08.1 Rheumatic disorders of both mitral and tricuspid valves; N18.3 Chronic kidney disease, stage 3 (moderate); F10.10 Alcohol abuse, uncomplicated; E87.5 Hyperkalemia; D63.1 Anemia in chronic kidney disease; F32.9 Major depressive disorder, single episode, unspecified; J44.9 Chronic obstructive pulmonary disease, unspecified; F17.210 Nicotine dependence, cigarettes, uncomplicated; R53.81 Other malaise; G40.909 Epilepsy, unspecified, not intractable, without status epilepticus; Z96.642 Presence of left artificial hip joint; Z88.8 Allergy status to other drugs, medicaments and biological substances; Z90.710 Acquired absence of both cervix and uterus; Z91.041 Radiographic dye allergy status; Z68.20 Body mass index [BMI] 20.0-20.9, adult
CPT/HCPCS: 36415; 36430; 71045; 76770; 80048; 80053; 80069; 80306; 81001; 82553; 82570; 82805; 82945; 83615; 83735; 83880; 83935; 83986; 84100; 84145; 84156; 84157; 84300; 84443; 84484; 84540; 85025; 85027; 85060; 85610; 85730; 86850; 86900; 86901; 87070; 87086; 87205; 88112; 88305; 89051; 93005; 93010; 93306; 93970; 94660; 94664; 94760; 96365; 96367; 96375; 97139; C1751; C9113; J0692; J1650; J1815; J1940; J2060; J2704; J3370; J3475; J3490; J7512; P9016; P9047; Q0163; U0002

== ENCOUNTER 2020-06-06 11:06 | Inpatient (IN) | payer MEDICARE, OTHER ==
[2020-06-06 11:57] LABS: Mean Corpuscular HGB CONC 32.2 g/dL (32.0-36.0); Mean Platelet Volume 8.2 fL (7.4-10.4); Platelet Count 144 thou/uL (130-400); RBC Distribution Width 18.5 % (11.5-14.5); Red Blood Cell (RBC) Count 2.41 mill/uL (4.20-5.40); White Blood Cell (WBC) Count 2.2 thou/uL (4.8-10.8)
[2020-06-06 12:08] LABS: ALT (SGPT) 11 U/L (8-55); AST (SGOT) 51 U/L (5-34); Albumin 3.6 g/dL (3.4-4.8); Alkaline Phosphatase 98 U/L (40-110); Anion Gap 25 mmol/L (10-20); BUN (Urea Nitrogen) 43 mg/dL (9.8-20.1); Bilirubin, Total 0.6 mg/dL (0.2-1.2); Calc. Creatinine Clearance 0 mL/min (70-130); Calcium 8.8 mg/dL (7.8-10.44); Carbon Dioxide 18 mmol/L (23-31); Chloride 97 mmol/L (98-107); Estimated GFR-MDRD 24; Globulin 3.2 g/dL (2.4-3.5); Lipase 11 U/L (8-78); Protein, Total 6.8 g/dL (6.0-8.3); Sodium 136 mmol/L (136-145)
[2020-06-06 12:09] LABS: #Eosinphils 0.1 thou/uL (0.0-0.7); #Lymphocytes 0.5 thou/uL (1.20-3.40); #Monocytes 0.1 thou/uL (0.11-0.59); #Neutrophils 1.5 thou/uL (1.40-6.50); %Basophils 0.7 % (0.0-1.0); %Eosinophils 6.3 % (0.0-10.0); %Lymphocytes 21.7 % (21.0-51.0); %Monocytes 3.9 % (0.0-10.0); %Neutrophils 67.3 % (42.0-75.0); Anisocytosis SLIGHT = 6-15 cells (100X) (0-5/hpf); Burr Cells SLIGHT = 2-5 cells (100X) (0-1/hpf); Elliptocytes SLIGHT = 2-5 cells (100X) (0-1/hpf); MDiff Complete? YES; Microcytosis SLIGHT = 6-15 cells (100X) (0-5/hpf); Ovalocytes SLIGHT = 2-5 cells (100X) (0-1/hpf); Platelet Morphology Comment Appears Adequate; Poikilocytosis SLIGHT = 6-15 cells (100X) (0-5/hpf); Polychromasia SLIGHT = 2-3 cells (100X) (0-2/hpf); Target Cells SLIGHT = 2-5 cells (100X) (0-1/hpf)
[2020-06-06 12:16] LABS: Glucose 45 mg/dL (80-115)
--- NOTE | 2020-06-06 13:20 | PDOC.FPRHP ---
- History of Present Illness Chief Complaint: Hypoglycemia History of Present Illness: Pt is a 69yo female with a PMH of HFrEF, alcohol and tobacco abuse who presents with AMS and hypoglycemia. She lives at home with her mother who is her job order clerk. She was found down and EMS was called. Upon arrival BG was found to be 27. Was given D10 en route and BG corrected. Upon arrival to ED BG was 110 but short time later was back down to 45. Was given juice and crackers and it went back up to 100. No hx of DM but family says she has had episodes of hypoglycemia in the past. Also c/o nausea, vomiting and diarrhea for 2 days. She endorses poor appetite, and chills.She denies fever. She drinks 4-5 shots of vodka a day, last drink was yesterday. Echo from Apr shows EF 30-35% ED Course: EMS:D10 In ED: she was given crackers and juice. - Allergies/Adverse Reactions Allergies Allergy/AdvReac Type Severity Reaction Status Date / Time Gadolinium-Containing AdvReac Mild Emesis Verified 05/08/20 23:22 Contrast Medi - Home Medications Medication Instructions Recorded Confirmed Type Folic Acid [Folvite] 1 mg PO DAILY 08/28/19 06/06/20 History Aspirin [Ecotrin Low Strength] 81 mg PO DAILY 09/05/19 06/06/20 History Carvedilol [Coreg] 25 mg PO BID 02/14/20 06/06/20 History Pantoprazole [Protonix] 40 mg PO DAILY 02/14/20 06/06/20 History Sertraline HCl 50 mg PO DAILY 02/14/20 06/06/20 History Thiamine 100 mg PO DAILY tab 02/25/20 06/06/20 Rx Ferrous Sulfate [Feosol] 325 mg PO QAM-WM #30 tab 05/14/20 06/06/20 Rx Isosorbide Dinitrate [Isordil] 20 mg PO TID #90 tab 05/14/20 06/06/20 Rx Mecobalamin [B12 Active] 100 mcg PO DAILY 06/06/20 06/06/20 History Sodium Bicarbonate [Bicarbonate, 650 mg PO DAILY 06/06/20 06/06/20 History Sodium] hydrALAZINE [Apresoline] 25 mg PO Q8H 06/06/20 06/06/20 History levETIRAcetam [Keppra] 500 mg PO BID 06/06/20 06/06/20 History - History PMHx:HTN, HFrEF, seizure disorder, alcohol abuse, tobacco abuse, anemia PSHx: left hip replacement, hysterectomy FHx: noncontributory Social: She lives with her mother. She drinks 4-5 shots of vodka. Last drink was last night. Smokes 1 PPD - Review of Systems General: reports: fever/chills Eyes: denies: vision changes ENT: denies: nasal congestion Respiratory: reports: cough. denies: congestion, shortness of breath Cardiovascular: denies: chest pain Gastrointestinal: reports: nausea, vomiting, diarrhea. denies: abdominal pain Genitourinary: denies: dysuria Skin: denies: rashes Musculoskeletal: denies: pain, arthritis/arthralgias Neurological: denies: syncope Psychological: denies: depression - Vital signs BP: 169/99 HR: 83 RR: 15 Tmax: 98.0 Pox: 96% on RA Wt: 36 kg - Physical Exam -Constitutional: somnolent, cachectic -HEENT: Arcus senilis, dry mucous membranes, poor dentition Neck: supple, FROM, trachea midline Chest: no-tender to palpation Heart: RRR, normal S1/S2, no edema Lungs: CTAB, no respiratory distress Abdomen: soft, non-tender, bowel sounds present Musculoskeletal: ROM grossly normal -Musculoskeletal: appearance of muscle wasting Neurological: no focal deficit Skin: no rash/lesions, no jaundice Heme/Lymphatic: no unusual bruising or bleeding, no purpura Psychiatric: intact recent and remote memory -Psychiatric: poor insight FMR H&P: Results - Labs Result Diagrams: 06/06/20 11:30 06/06/20 11:30 Lab results: WBC 2.2 thou/uL (4.8-10.8) L 06/06/20 11:30 Hgb 8.0 g/dL (12.0-16.0) L 06/06/20 11:30 Hct 24.7 % (36.0-47.0) L 06/06/20 11:30 MCV 102.0 fL (78.0-98.0) H 06/06/20 11:30 Plt Count 144 thou/uL (130-400) 06/06/20 11:30 Neutrophils % 67.3 % (42.0-75.0) 06/06/20 11:30 Sodium 136 mmol/L (136-145) 06/06/20 11:30 Potassium 4.0 mmol/L (3.5-5.1) 06/06/20 11:30 Chloride 97 mmol/L (98-107) L 06/06/20 11:30 Carbon Dioxide 18 mmol/L (23-31) L 06/06/20 11:30 BUN 43 mg/dL (9.8-20.1) H 06/06/20 11:30 Creatinine 2.39 mg/dL (0.6-1.1) H 06/06/20 11:30 Glucose 45 mg/dL (80-115) L* 06/06/20 11:30 Calcium 8.8 mg/dL (7.8-10.44) 06/06/20 11:30 Total Bilirubin 0.6 mg/dL (0.2-1.2) 06/06/20 11:30 AST 51 U/L (5-34) H 06/06/20 11:30 ALT 11 U/L (8-55) 06/06/20 11:30 Alkaline Phosphatase 98 U/L (40-110) 06/06/20 11:30 Serum Total Protein 6.8 g/dL (6.0-8.3) 06/06/20 11:30 Albumin 3.6 g/dL (3.4-4.8) 06/06/20 11:30 Lipase 11 U/L (8-78) 06/06/20 11:30 - Radiology Interpretation CT scan - abdomen Status: report reviewed by [place] FMR H&P: A/P - Problem List (1) CKD (chronic kidney disease) Current Visit: No Status: Acute Code(s): N18.9 - CHRONIC KIDNEY DISEASE, UNSPECIFIED (2) Cardiomyopathy Current Visit: No Status: Chronic Code(s): I42.9 - CARDIOMYOPATHY, UNSPECIFIED (3) Hypertension Current Visit: No Status: Chronic Code(s): I10 - ESSENTIAL (PRIMARY) HYPERTENSION Qualifiers: Comment: (4) Pancreatic mass Current Visit: No Status: Chronic (5) Seizure disorder Current Visit: No Status: Chronic Code(s): G40.909 - EPILEPSY, UNSP, NOT INTRACTABLE, WITHOUT STATUS EPILEPTICUS Comment: (6) Tobacco abuse Current Visit: No Status: Chronic Code(s): Z72.0 - TOBACCO USE - Plan 69 yo F admitted for AMS and hypoglycemia: #Acute metabolic encephalopathy 2/2 Hypoglycemia -BG 27 in field, corrected to 100s via D50, then hypoglycemic to 45 again short time later -CT: mass in tail of pancreas, possible insulinoma, consider MRI for further eval -given: thiamine, banana bag, glucagon -q2h accucheck -pending: proinsulin, C peptide #Hx of Alcohol abuse -AST elevated, serum alchohol pending -could be source of encephalopathy - ASE protocol, thiamine given - last drink yesterday, continue to monitor, hx of seizure disorder #Pancreatic Mass -CT as above -previous CT showed pancreatic mass in head of pancreas #CKD4 -Cr 2.39, eGFR 24 on admission, appears to be stable from last admission -patient of Dr. Buitrago, nephrology, unsure of last visit -avoid nephrotoxic medications, renally dose meds #HFrEF -echo 05/09/20: EF 30-35%, diastolic dysfunction, severe MR and TR -strict I/Os, daily weights #HTN - daily weight, strict I/Os - continue home meds #Seizure disorder - continue home keppra - ASE protocol #Tobacco abuse - consider adding nicotine patch - encourage cessation #Macrocytic anemia - on multivitamin -pending B12 and folate #Depression - continue home meds Diet: HH VTE: SCDs Code: Full PCP: Eva Thapa Fluids: D5 1/2NS Dispo: Admitted to inpatient in IMCU, monitor BG q2h, ASE protocol, assess mentation, LOS>48hrs. FMR H&P: Upper Level - Pertinent history Ms. Oconnell is a 69yo female with pmh of HFrEF, alcohol abuse and seizure disorder who presents with hypoglycemia via EMS. She lives with her mother who is her job order clerk and found her not responding and called EMS. EMS checked her blood sugar and found it to be 29. They administered D10. Her blood glucose was found to be 46. They gave her juice and crackers in the ED and her blood sugar came up 110. PE: General: Somnolent Neck: No JVD present, supple, trachea midline CV: RRR, no murmurs Respiratory: CTA Abdomen: Nontender, Non-distended, NBS Neuro: CN II-XII intact, sensation intact, no focal deficit Extremities: LE no edema. Pulses present 1+ throughout - Pertinent findings Pt is a 69 yo F with pmh Hx of Alcohol & Tobacco Abuse, CKD Stage 4, HTN, HFrEF, Hx of Seizures, and depression who presents for AMS after being found by her mother. 1. Acute Metabolic Encephalopathy 2/2 Hypoglycemia & Alcohol Intoxication -BG 27 > 100 > 45 -EMS: D10 given -In ED * Given D50 * CT: mass in tail of pancreas, possible insulinoma, consider MRI for further eval -Q2H BG Checks, Hypoglycemia Protocol -Ordered Glucagon, Thiamine, D5 1/2 NS, Banana Bag -AST was elevated -Ordered Alcohol Level -ASE protocol with ASE meds -Ordered C-peptide & insulin level 2. Alcohol Use Disorder -Hx of withdrawal. -Last drink yesterday. -Drinks 3-4 shots of vodka per day per patient. -Ordered ASE protocol with meds -Ordered thiamine, banana bag, and D5 -Will restart home thiamine 3. CKD Stage IV Cre: 2.39, GFR: 24, appears at baseline -Ceramic Tile Installation Helper: Dr. Buitrago, consider consulting -Monitor renal function 4. Hypochloreia Cl: 98 -Likely 2/2 to nausea, vomiting, and diarrhea -Continue to monitor 5. Pancreatic Mass -CT: mass in tail of pancreas, possible insulinoma, consider MRI for further eval -previous CT showed pancreatic mass in head of pancreas 6. [facility] EF 30-35%, diastolic dysfunction, severe MR and TR -Strict I/Os, Daily weights 7.HTN -Daily weight, strict I/Os -Continue home meds 8. Seizure disorder -Continue home med: keppra -Will monitor 9. Tobacco abuse -Nicotine patch -Encourage cessation 10. Macrocytic anemia -Continue home meds: Folate & B12 -B12 and folate: pending 11. Depression -Continue home med: Sertraline - Plan Date/Time: 06/06/20 1320 I, Josué Thapa, have evaluated this patient and agree with findings/plan as outlined by programming internship resident. Pertinent changes/additions are listed here. Addendum - Attending - Attending Attestation Date/Time: 06/06/20 2306 I personally evaluated the patient and discussed the management with Dr. Figueroa I agree with the History, Examination, Assessment and Plan documented above with any addition or exceptions noted below.
[2020-06-06] MEDS ORDERED: Acetaminophen 325 MG TAB PO PRN (13:50)
[2020-06-06] MEDS ORDERED: Ondansetron PF 4 MG/2 ML Vial IVP PRN (13:50)
[2020-06-06] MEDS ORDERED: Ondansetron ODT 4 MG TAB PO PRN (13:50)
--- NOTE | 2020-06-06 14:40 | CT ---
CT ABDOMEN AND PELVIS WITHOUT CONTRAST: Date: 06-06-2020 PROVIDED CLINICAL HISTORY: Hypoglycemia FINDINGS: Comparison is made with prior CT examinations, the most recent of which is 11-27-2019. There is a 1.6 cm mass like area at the terminal aspects of the pancreatic tail. This appears similar to multiple prior examinations and demonstrates equivocal somewhat more conspicuous enhancement on t he arterial phase images of 11-27-2019 than the remainder of the pancreas. The solid abdominal organs are suboptimally evaluated in the absence of IV contrast material but demo nstrate an otherwise unremarkable unenhanced CT appearance. There are at least moderate bilateral pleural fluid collections with adjacent probable passive atelec tatic change. Extensive atherosclerotic vascular calcifications are seen. Gallstones are noted withou t significant gallbladder distention apparent. There is poor visualization of the pelvis on the basis of beam hardening artifact from left hip arthr oplasty. There is no bowel dilatation, inflammatory fat stranding, free intraperitoneal fluid or free intraperitoneal air apparent. Increased density within the regional subcutaneous adipose layer sugge sts anasarca. The osseous structures demonstrate no concerning lytic or blastic lesions. IMPRESSION: 1. Questioned 1.6 cm pancreatic tail mass, which could reflect an insulinoma given the provided clini allie history. Correlation with MRI of the abdomen utilizing pancreatic mass protocol is recommended. 2. Moderate bilateral pleural fluid collections and findings suggesting anasarca. 3. Cholelithiasis. POS: JUAN CARLOS
[2020-06-06 14:42] LABS: INR-International Normal Ratio 1.1; Prothrombin Time 14.3 sec (12.0-14.7)
[2020-06-06 14:43] LABS: PTT 38.4 sec (22.9-36.1)
[2020-06-06 14:58] LABS: Alcohol Less than 10 mg/dL (Less than 10); Iron 76 ug/dL (50-170); Iron Binding Capacity, Total 190 mcg/dL (265-497)
[2020-06-06] MEDS ORDERED: Thiamine HCl 200 MG/2 ML VIAL IM SCH (15:00)
[2020-06-06] MEDS ORDERED: Dextrose 5 %-0.45 % NaCl 1,000 ML IV SCH (15:00)
[2020-06-06] MEDS ORDERED: Multivitamins, Adult 10 ML, Folic Acid 1 MG, Thiamine HCl 100 MG in Dextrose 5 %-0.45 %... IV SCH ×3 (16:00→20:00)
[2020-06-06] MEDS ORDERED: Dextrose 5% in Water 1,000 ML IV PRN (16:05)
[2020-06-06] MEDS ORDERED: Dextrose 50% Abboject 50 ML SYRINGE SLOW IVP PRN (16:05)
[2020-06-06] MEDS ORDERED: Dextrose 5 % And 0.9 % NaCl 1,000 ML IV SCH (16:45)
[2020-06-06] MEDS ORDERED: Diazepam 5 MG TAB PO PRN (17:54)
[2020-06-06] MEDS: Heparin 5,000 UNITS/ML VIAL SC SCH ×2 (17:55→19:52)
[2020-06-06 17:57] VITALS: BMI 15.7
[2020-06-06] MEDS ORDERED: Diazepam 5 MG TAB PO SCH (18:00)
[2020-06-06] MEDS: hydrALAZINE 25 MG TAB PO SCH ×2 (18:23→23:49)
[2020-06-06] MEDS: Isosorbide Dinitrate 20 MG TAB PO SCH ×2 (18:23→19:52)
[2020-06-06] MEDS: levETIRAcetam 500 MG TAB PO SCH (19:52)
[2020-06-06] MEDS: Carvedilol 25 MG TAB PO SCH (19:52)
[2020-06-07 03:42] LABS: #Eosinphils 0.1 thou/uL (0.0-0.7); #Lymphocytes 0.5 thou/uL (1.20-3.40); #Monocytes 0.2 thou/uL (0.11-0.59); #Neutrophils 1.3 thou/uL (1.40-6.50); %Basophils 0.9 % (0.0-1.0); %Eosinophils 4.8 % (0.0-10.0); %Lymphocytes 24.2 % (21.0-51.0); %Monocytes 8.6 % (0.0-10.0); %Neutrophils 61.5 % (42.0-75.0); Hemoglobin 7.4 g/dL (12.0-16.0); Mean Corpuscular HGB CONC 32.7 g/dL (32.0-36.0); Mean Platelet Volume 8.2 fL (7.4-10.4); Platelet Count 122 thou/uL (130-400); RBC Distribution Width 17.9 % (11.5-14.5); Red Blood Cell (RBC) Count 2.25 mill/uL (4.20-5.40); White Blood Cell (WBC) Count 2.2 thou/uL (4.8-10.8)
[2020-06-07] MEDS ORDERED: Diazepam 5 MG TAB PO PRN (04:00)
[2020-06-07 04:05] LABS: ALT (SGPT) 8 U/L (8-55); AST (SGOT) 32 U/L (5-34); Albumin 3.1 g/dL (3.4-4.8); Alkaline Phosphatase 93 U/L (40-110); Anion Gap 12 mmol/L (10-20); BUN (Urea Nitrogen) 41 mg/dL (9.8-20.1); Bilirubin, Total 0.5 mg/dL (0.2-1.2); Calc. Creatinine Clearance 14 mL/min (70-130); Calcium 8.3 mg/dL (7.8-10.44); Carbon Dioxide 27 mmol/L (23-31); Chloride 97 mmol/L (98-107); Estimated GFR-MDRD 24; Globulin 2.8 g/dL (2.4-3.5); Glucose 139 mg/dL (80-115); Potassium 3.9 mmol/L (3.5-5.1); Protein, Total 5.9 g/dL (6.0-8.3); Sodium 132 mmol/L (136-145)
--- NOTE | 2020-06-07 08:01 | PDOC.FM ---
- Subjective Subjective: Doing well this morning, alert and oriented. Eating breakfast. Complains of Right knee pain 2/2 fall prior to current hospitalization. States she does not plan to quit drinking or smoking. No confusion, tremors. No CP, SOB, n/v, diarrhea/constipation. Not interested in placement, wants to be discharged home. Attempt to call son "Eva" (MPOA) but no answer and no VM set up. - Objective MAR Reviewed: Yes Vital Signs & Weight: Vital Signs (12 hours) Temp Pulse Resp BP Pulse Ox 06/07/20 07:00 99.8 F H 06/07/20 03:52 98.2 F 06/06/20 23:53 97.1 F L 06/06/20 23:00 75 16 123/79 97 Weight Weight 39.1 kg Most Recent Monitor Data Heart Rate from ECG 85 NIBP 129/78 NIBP BP-Mean 95 Respiration from ECG 16 SpO2 96 I&O: 06/06/20 06/07/20 06/08/20 06:59 06:59 06:59 Intake Total 480 Output Total 200 Balance 280 Result Diagrams: 06/07/20 03:01 06/07/20 03:01 Phys Exam - Physical Examination Constitutional: NAD (cachetic, frail appearing chronically) HEENT: PERRLA, moist MMs Neck: supple Respiratory: no wheezing, no rales, no rhonchi, clear to auscultation bilateral Cardiovascular: RRR, no significant murmur, no rub Gastrointestinal: soft, non-tender, no distention, positive bowel sounds Right knee mild swelling, 3/5 strength RLE 2/2 pain, 4/5 strength LLE Neurological: non-focal Psychiatric: normal affect, A&O x 3 Skin: no rash Dx/Plan (1) AMS (altered mental status) Code(s): R41.82 - ALTERED MENTAL STATUS, UNSPECIFIED Status: Acute (2) Hypoglycemia Code(s): E16.2 - HYPOGLYCEMIA, UNSPECIFIED Status: Acute (3) Alcohol abuse Code(s): F10.10 - ALCOHOL ABUSE, UNCOMPLICATED Status: Chronic (4) Seizure disorder Code(s): G40.909 - EPILEPSY, UNSP, NOT INTRACTABLE, WITHOUT STATUS EPILEPTICUS Status: Chronic (5) CKD (chronic kidney disease) stage 4, GFR 15-29 ml/min Code(s): N18.4 - CHRONIC KIDNEY DISEASE, STAGE 4 (SEVERE) Status: Chronic - Plan Plan: 69 yo F h/o HFrE, EtOH abuse, CKD Stage 4, and tob abuse admitted for AMS and hypoglycemia: #Acute metabolic encephalopathy 2/2 Hypoglycemia, resolved -BG 27 in field, corrected to 100s via D50, then hypoglycemic to 45 again short time later -CT: mass in tail of pancreas, possible insulinoma, MRI ordered -Suspect nutritional cause -Given banana bag and IV thiamine, will continue thiamine -BG stable and mentation at baseline, will continue to monitor. D/c D5 IVF -Insulin lv low, C-peptide pending. #Alcohol abuse - serum alcohol negative, no s/s of withdrawal - ASE protocol, thiamine given - last drink yesterday, continue to monitor, hx of seizure disorder. Encouraged cessation, patient no interested in quitting #Pancreatic Mass -CT as above -previous CT showed pancreatic mass in head of pancreas -Has seen Onc in past and was monitoring, MRI pending #Chronic protein-calorie malnutrition - employee relations administrator consulted, chronic on-going problem - likely contributing to admitting diagnosis #CKD4, stable -Cr 2.39, eGFR 24 on admission, appears to be stable from last admission -patient of Dr. Buitrago, nephrology, unsure of last visit -avoid nephrotoxic medications, renally dose meds #HFrEF -echo 05/09/20: EF 30-35%, diastolic dysfunction, severe MR and TR -strict I/Os, daily weights #HTN - daily weight, strict I/Os - continue home meds #Seizure disorder - continue home keppra - ASE protocol #Tobacco abuse - consider adding nicotine patch - encourage cessation #Macrocytic anemia - on multivitamin -pending B12 and folate #Depression - continue home meds Diet: HH VTE: SCDs Code: Full PCP: Eva Thapa Fluids: SL Dispo: Admitted for hypoglycemia, suspect nutritional. BG stable, mentation improved. MRI of pancreatic mass pending. Transfer to floor. Discussing goals of care and possible placement due to frequent admissions. Anticipate discharge in next 1-2 days pending clinical course. Addendum - Attending - Attending Attestation Date/Time: 06/07/20 2986 I personally evaluated the patient and discussed the management with Dr. Thapa. I agree with the History, Examination, Assessment and Plan documented above with any addition or exceptions noted below. Pt had CKD IV, HFrEF, seizure, alcohol abuse who presents for hypoglycemia withn diagnosis of DM. Currently BG stable for 24 hours. She has pancytopenia and is currently seen by heme/onc w/o diagnosis. She also has an old pancreatic mass and heme/onc decided to monitor lesion at this time. It has not been biopsied. MRI pending. Insulin levels low - less likely insulinoma causing hypoglycemia. Goals of care - discuss with family today although pt is able to make decisions. Pt wants to remain full code, discharged to home. Of note, she is not wearing h er life vest in setting of HFrEF. Pt complains of R knee pain - will order x- ray. Transfer to floor.
[2020-06-07] MEDS ORDERED: Thiamine 100 MG TAB PO SCH (09:00)
[2020-06-07] MEDS ORDERED: Folic Acid 1 MG TAB PO SCH (09:00)
[2020-06-07] MEDS ORDERED: FLU VACC QS2020-21(65YR UP)/PF 240 MCG/0.7 ML SYRINGE IM ONE (09:00)
[2020-06-07] MEDS: hydrALAZINE 25 MG TAB PO SCH ×2 (09:08→16:48)
[2020-06-07] MEDS: Ferrous Sulfate 325 MG TAB PO SCH (09:08)
[2020-06-07] MEDS: Isosorbide Dinitrate 20 MG TAB PO SCH ×3 (09:09→22:00)
[2020-06-07] MEDS: Aspirin 81 mg Enteric Coated Tablet PO SCH (09:09)
[2020-06-07] MEDS: Multivitamin W/ Minerals 1 TAB PO SCH (09:09)
[2020-06-07] MEDS: Nicotine 21 MG PATCH TD SCH (09:09)
[2020-06-07] MEDS: levETIRAcetam 500 MG TAB PO SCH ×2 (09:09→22:00)
[2020-06-07] MEDS: Magnesium Oxide 400 MG TAB PO SCH (09:09)
[2020-06-07] MEDS: Carvedilol 25 MG TAB PO SCH ×2 (09:09→22:00)
[2020-06-07] MEDS: Thiamine 100 MG TAB PO SCH (09:10)
[2020-06-07] MEDS: Folic Acid 1 MG TAB PO SCH (09:11)
[2020-06-07] MEDS: Heparin 5,000 UNITS/ML VIAL SC SCH ×4 (09:11→22:00)
[2020-06-07] MEDS: Cyanocobalamin (Vitamin B-12) 1,000 MCG TAB PO SCH (09:11)
[2020-06-07 11:02] LABS: SARS-CoV-2 MS2 Positive; SARS-CoV-2 N Gene Negative; SARS-CoV-2 S Gene Negative; SARS-CoV-2 by NAA Not Detected (NotDetected); SARS-CoV-2 orf1ab Negative
--- NOTE | 2020-06-07 11:11 | RAD ---
EXAM: 4 views of the right knee HISTORY: Knee pain COMPARISON: 05/08/2020 FINDINGS: A small knee effusion is seen. There is no evidence of acute fracture or dislocation. Moder ate tricompartmental joint space narrowing and osteophyte formation is seen consistent with osteoarthritis. This is greatest in the lateral femorotibial compartment. Vascular calcifications are seen. There is stable nonspecific sclerosis and metaphyseal regions of the femur and fibula. IMPRESSION: Moderate right knee osteoarthritis
[2020-06-07] MEDS: Sodium Bicarbonate Tab 325 MG TAB PO SCH (12:15)
--- NOTE | 2020-06-07 15:09 | MRI ---
EXAM: MRI of the abdomen without contrast COMPARISON: CT abdomen/pelvis 06/06/2020 HISTORY: Pancreatic mass seen in the tail the pancreas on recent CT TECHNIQUE: Multiplanar multi sequence MR images were taken of the abdomen without IV contrast. An MRC P was performed. FINDINGS: Liver: No focal liver lesions or intrahepatic ductal dilatation. Normal signal without dropout on out of phase images. Gallbladder: No filling defects or gallbladder wall thickening. Common bile duct: Normal caliber without filling defects Adrenal glands: Unremarkable. Kidneys: No hydronephrosis or focal renal lesions. Spleen: Unremarkable. Pancreas: No pancreatic mass is present. The abnormality on CT likely represents a normal lobulation of pancreatic tissue in the region of the tail of the pancreas.. Retroperitoneum: No enlarged lymph nodes Bones: No marrow signal abnormality. Lower thorax: There are small bilateral pleural effusions with adjacent atelectasis. IMPRESSION: Abnormality in the tail the pancreas on CT likely represents normal lobulated pancreatic tissue
[2020-06-07] MEDS ORDERED: Acetaminophen 325 MG TAB PO PRN (16:46)
[2020-06-07] MEDS ORDERED: Acetaminophen 325 MG TAB PO SCH (17:15)
[2020-06-07] MEDS: Capsaicin 0.025% Cream 60 gm Tube TOP SCH (21:50)
[2020-06-08] MEDS: hydrALAZINE 25 MG TAB PO SCH ×3 (00:31→15:44)
[2020-06-08 05:53] LABS: #Eosinphils 0.1 thou/uL (0.0-0.7); #Lymphocytes 0.6 thou/uL (1.20-3.40); #Monocytes 0.2 thou/uL (0.11-0.59); #Neutrophils 1.5 thou/uL (1.40-6.50); %Basophils 0.4 % (0.0-1.0); %Eosinophils 2.7 % (0.0-10.0); %Lymphocytes 26.3 % (21.0-51.0); %Monocytes 9.3 % (0.0-10.0); %Neutrophils 61.3 % (42.0-75.0); Hemoglobin 6.8 g/dL (12.0-16.0); Mean Corpuscular HGB CONC 32.7 g/dL (32.0-36.0); Mean Corpuscular Hemoglobin 33.3 pg (27.0-31.0); Mean Platelet Volume 8.2 fL (7.4-10.4); Platelet Count 97 thou/uL (130-400); RBC Distribution Width 17.7 % (11.5-14.5); Red Blood Cell (RBC) Count 2.04 mill/uL (4.20-5.40); White Blood Cell (WBC) Count 2.4 thou/uL (4.8-10.8)
--- NOTE | 2020-06-08 06:10 | PDOC.FM ---
- Subjective Subjective: Doing well this morning, no acute events overnight. Slept well. No pain. Endorses good PO intake. No n/v. No CP, SOB. Eager for discharge home. Not interested in going to [facility] at this time, plans to discuss further with her son. - Objective MAR Reviewed: Yes Vital Signs & Weight: Vital Signs (12 hours) Temp Pulse Resp BP Pulse Ox 06/08/20 04:00 98.3 F 80 20 148/80 H 92 L 06/08/20 00:31 86 06/08/20 00:00 98.2 F 79 20 135/73 96 06/07/20 20:00 98.3 F 86 20 134/76 96 Weight Admit Weight 39.1 kg Weight 39.1 kg Most Recent Monitor Data Heart Rate from ECG 82 NIBP 117/68 NIBP BP-Mean 84 Respiration from ECG 20 SpO2 97 I&O: 06/06/20 06/07/20 06/08/20 06:59 06:59 06:59 Intake Total 480 Output Total 200 200 Balance 280 -200 Result Diagrams: 06/08/20 05:38 06/07/20 03:01 Phys Exam - Physical Examination Constitutional: NAD (resting comfortably, chronically cachetic appearing and frail) HEENT: moist MMs Neck: supple, full ROM Respiratory: no wheezing, no rales, no rhonchi, clear to auscultation bilateral Cardiovascular: RRR, no significant murmur, no rub Gastrointestinal: soft, non-tender, no distention, positive bowel sounds Musculoskeletal: no edema Neurological: moves all 4 limbs Psychiatric: normal affect, A&O x 3 Dx/Plan (1) AMS (altered mental status) Code(s): R41.82 - ALTERED MENTAL STATUS, UNSPECIFIED Status: Resolved Qualifiers: Altered mental status type: transient alteration of awareness Qualified Code(s): R40.4 - Transient alteration of awareness (2) Hypoglycemia Code(s): E16.2 - HYPOGLYCEMIA, UNSPECIFIED Status: Resolved (3) Alcohol abuse Code(s): F10.10 - ALCOHOL ABUSE, UNCOMPLICATED Status: Chronic (4) Seizure disorder Code(s): G40.909 - EPILEPSY, UNSP, NOT INTRACTABLE, WITHOUT STATUS EPILEPTICUS Status: Chronic (5) CKD (chronic kidney disease) stage 4, GFR 15-29 ml/min Code(s): N18.4 - CHRONIC KIDNEY DISEASE, STAGE 4 (SEVERE) Status: Chronic - Plan Plan: 69 yo F h/o HFrE, EtOH abuse, CKD Stage 4, and tob abuse admitted for AMS and hypoglycemia: #Acute metabolic encephalopathy 2/2 Hypoglycemia, resolved -BG 27 in field, corrected to 100s via D50, then hypoglycemic to 45 again short time later -CT: mass in tail of pancreas, possible insulinoma -MRI: NO pancreatic mass, what was seen on CT was a normal lobe of the pancreas per radiology read -Suspected nutritional cause -Given banana bag and IV thiamine, will continue thiamine -BG stable and mentation at baseline, even off D5W IVF. -Insulin lv low, C-peptide pending. #Alcohol abuse - serum alcohol negative, no s/s of withdrawal - ASE protocol, thiamine given - last drink on day prior to admission, continue to monitor, hx of seizure disorder. Encouraged cessation, patient not interested in quitting #Anemia of chronic disease in setting of pancytopenia - Iron levels, B12, and folate checked and all WNL - Has history of GI bleeding, no current GI blood loss per patient - Suspect anemia of chronic disease, malnutrition, and renal disease - Hb 7.4 -> 6.8, consider transfusion prior to discharge - In setting of pancytopenia, has seen Onc in past, suspect chronic malnutrition and EtOH abuse - Will need continued Heme/Onc outpatient follow up #Severe Chronic protein-calorie malnutrition - embryology professor consulted, chronic on-going problem - likely contributing to admitting diagnosis #CKD4, stable -Cr 2.39, eGFR 24 on admission, appears to be stable from last admission -patient of Dr. Buitrago, nephrology, unsure of last visit -avoid nephrotoxic medications, renally dose meds #HFrEF -echo 05/09/20: EF 30-35%, diastolic dysfunction, severe MR and TR -strict I/Os, daily weights -no s/s of acute exacerbation at this time #HTN - daily weight, strict I/Os - continue home meds #Seizure disorder - continue home keppra - ASE protocol #Tobacco abuse - consider adding nicotine patch - encourage cessation #Depression - continue home meds Diet: HH VTE: SCDs Code: Full PCP: Eva Thapa Fluids: SL Dispo: Admitted for hypoglycemia, suspect nutritional. BG stable, mentation improved. MRI of pancreatic negative. Not interested in NH placement at this time. Consider pRBC transfuse. Anticipate discharge today.
[2020-06-08 06:14] LABS: Anion Gap 13 mmol/L (10-20); BUN (Urea Nitrogen) 44 mg/dL (9.8-20.1); Calc. Creatinine Clearance 14 mL/min (70-130); Calcium 8.8 mg/dL (7.8-10.44); Carbon Dioxide 26 mmol/L (23-31); Chloride 99 mmol/L (98-107); Estimated GFR-MDRD 23; Glucose 104 mg/dL (80-115); Potassium 3.8 mmol/L (3.5-5.1); Sodium 134 mmol/L (136-145)
[2020-06-08] MEDS ORDERED: FLU VACC QS2020-21(65YR UP)/PF 240 MCG/0.7 ML SYRINGE IM ONE (09:00)
[2020-06-08] MEDS: Nicotine 21 MG PATCH TD SCH (09:08)
[2020-06-08] MEDS: Heparin 5,000 UNITS/ML VIAL SC SCH ×2 (09:08→13:51)
[2020-06-08] MEDS: Thiamine 100 MG TAB PO SCH (09:08)
[2020-06-08] MEDS: Cyanocobalamin (Vitamin B-12) 1,000 MCG TAB PO SCH (09:09)
[2020-06-08] MEDS: Sodium Bicarbonate Tab 325 MG TAB PO SCH (09:09)
[2020-06-08] MEDS: Aspirin 81 mg Enteric Coated Tablet PO SCH (09:09)
[2020-06-08] MEDS: levETIRAcetam 500 MG TAB PO SCH (09:09)
[2020-06-08] MEDS: Ferrous Sulfate 325 MG TAB PO SCH (09:09)
[2020-06-08] MEDS: Multivitamin W/ Minerals 1 TAB PO SCH (09:09)
[2020-06-08] MEDS: Magnesium Oxide 400 MG TAB PO SCH (09:10)
[2020-06-08] MEDS: Carvedilol 25 MG TAB PO SCH (09:10)
[2020-06-08] MEDS: Folic Acid 1 MG TAB PO SCH (09:10)
[2020-06-08] MEDS: Isosorbide Dinitrate 20 MG TAB PO SCH ×2 (09:11→14:06)
[2020-06-08] MEDS: Capsaicin 0.025% Cream 60 gm Tube TOP SCH ×2 (09:11→14:07)
--- NOTE | 2020-06-08 14:58 | PDOC.PALPN ---
Palliative Progress Note - Subjective receiving PRBC, complains of pain to right knee. Hungry and hopeful to return to the home setting. States she was in NH a month ago, then left (Unable to confirm a reason for discharge). States recent stress is her brother passing away a month ago. Assistance required in the home setting fro ADL, wheel chair bound status secondary to muscle atrophy - Objective Vital Signs: Vital Signs - Most Recent Temp Pulse Resp BP Pulse Ox 98.0 F 84 16 164/90 H 99 06/08/20 12:37 06/08/20 12:37 06/08/20 12:37 06/08/20 12:37 06/08/20 08:12 - Physical Exam Constitutional: cachectic, emaciated, ill appearing HEENT: moist MMs, poor dentition Respiratory: clear to auscultation bilateral, no wheezing Cardiovascular: RRR Gastrointestinal: soft, non-tender Genitourinary: incontinent Musculoskeletal: diffuse muscle atrophy, muscle wasting Neurology: moves all 4 limbs, no focal deficits Skin: no lesions, no rash Psychiatric: A&O x 3, normal affect - Assessment (1) CKD (chronic kidney disease) stage 4, GFR 15-29 ml/min Code(s): N18.4 - CHRONIC KIDNEY DISEASE, STAGE 4 (SEVERE) Current Visit: Yes Status: Chronic (2) Palliative care encounter Code(s): Z51.5 - ENCOUNTER FOR PALLIATIVE CARE Current Visit: No Status: Acute (3) Alcohol abuse Code(s): F10.10 - ALCOHOL ABUSE, UNCOMPLICATED Current Visit: No Status: Chronic (4) AMS (altered mental status) Code(s): R41.82 - ALTERED MENTAL STATUS, UNSPECIFIED Current Visit: No Status: Resolved Qualifiers: Altered mental status type: transient alteration of awareness Qualified Code(s): R40.4 - Transient alteration of awareness (5) Hypoglycemia Code(s): E16.2 - HYPOGLYCEMIA, UNSPECIFIED Current Visit: No Status: Resolved (6) Seizure Code(s): R56.9 - UNSPECIFIED CONVULSIONS Current Visit: No Status: Resolved - Plan Plan: Ms Oconnell is familiar to Palliative care. She confirms past stay at a SNF in [place], but states she left a month ago. Discussed at length her alcohol use and impact on health status. Confirms understanding, and she relayed history of her father who was an alcoholic. 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 Continues to require dependence for ADL in home, and is wheel chair bound. Revisited going to AA meeting to attempt to achieve and maintain a sober life as her disease trajectory continues to decline. Will again provide information in relation to resources in her community for AA She is "just not sure", will continue to provide emotional support and th erapeutic listening. Continue with aggressive measures and treatment as needed. [50] minutes spent on this encounter with >50% of the time in counseling and coordination of care. - ROS Constitutional: weakness ENT: alteration in dentition, other (Negative for congestion, throat irritation) Respiratory: shortness of breath with extertion Genitourinary: incontinence Musculoskeletal: arthritis/arthralgias, limited mobility
[2020-06-08 16:58] VITALS: BP 147/83; TEMP 97.5
--- NOTE | 2020-06-09 03:33 | DIS ---
DATE OF ADMISSION: 06/06/2020 DATE OF DISCHARGE: 06/08/2020 RESIDENT: Leon Thapa MD. ADMITTING ATTENDING: Dr. Chucky Urbina. DISCHARGE ATTENDING: Dr. Kam Robertson. CONSULTS: None. PROCEDURES: 1. Abdomen and pelvis CT performed on 06/06/2020, demonstrating a questionable 1.6 cm pancreatic tail mass which could reflect an insulinoma. Given the provided clinical history, recommended MRI. Moderate bilateral pleural fluid collections suggestive of anasarca. Cholelithiasis. 2. Abdomen MRI without contrast performed on 06/07/2020, demonstrating no acute finding. The abnormality seen on CT likely represents a normal lobulated pancreatic tissue. 3. Right knee x-ray performed on 06/07/2020, demonstrating moderate right knee osteoarthritis. 4. Transfusion of 1 unit packed red blood cells on 06/08/2020. PRIMARY DIAGNOSIS: Acute metabolic encephalopathy secondary to hypoglycemia due to chronic malnutrition, resolved. SECONDARY DIAGNOSES: 1. Alcohol abuse. 2. Anemia of chronic disease in setting of pancytopenia. 3. Severe chronic protein calorie malnutrition. 4. Chronic kidney disease, stage 4. 5. Heart failure, reduced ejection fraction. 6. Hypertension. 7. Seizure disorder. 8. Tobacco abuse. 9. Depression. DISCHARGE MEDICATIONS: 1. Folic acid 1 mg p.o. daily. 2. Aspirin 81 mg p.o. daily. 3. Protonix 40 mg p.o. daily. 4. Zoloft 50 mg p.o. daily. 5. Coreg 25 mg p.o. b.i.d. 6. Thiamine 100 mg p.o. daily. 7. Ferrous sulfate 325 mg p.o. q.a.m. 8. Isosorbide dinitrate 20 mg p.o. t.i.d. 9. Vitamin B12 at 100 mcg p.o. daily. 10. Sodium bicarb 650 mg p.o. daily. 11. Keppra 500 mg p.o. b.i.d. 12. Hydralazine 25 mg p.o. q.8 hours. 13. Nicotine patch 21 mg transdermally daily. 14. Multivitamin one tablet p.o. daily. DISCONTINUED MEDICATIONS: None. HISTORY OF PRESENT ILLNESS AND HOSPITAL COURSE: The patient is a pleasant 69-year-old female with past medical history of heart failure with reduced ejection fraction, alcohol and tobacco abuse, who presented with altered mental status and hypoglycemia event. She lives at home with her elderly mother who is her primary caregiver. She was found down and EMS was called. Upon arrival, her blood glucose was found to be 27. She was given D10 with correction of her blood sugar. Upon arrival to the ED, her blood sugar trended back down to 45 and she was given juice and crackers with resolution. She has no personal history of diabetes and no diabetes medications available in the house per patient. She has had episodes of hypoglycemia in the past secondary to her nutritional status. She endorses a poor appetite and had skipped meals for the last few days. She denied any fever. She does endorse drinking 4-5 shots of gin daily. Her last echo from April 2020 showed an EF of 30%-35%. She is no longer wearing a LifeVest. The patient was initially admitted to the [facility] for monitoring of her hypoglycemia with frequent glucose monitoring. Her blood sugars remained stable with adequate p.o. intake. The patient had a CT performed that showed the questionable pancreatic mass, which could have been an insulinoma and recommended a followup MRI. Followup MRI demonstrated no mass and an insulin level was low. Thus, ruling out insulinoma as a cause of her hypoglycemia. The patient's hypoglycemia was likely due to her nutritional status and patient was counseled and encouraged to have small frequent meals throughout the day and to not skip meals. She was also encouraged to stop drinking and smoking as this is also contributing to her chronic medical conditions and her frequent hospitalizations. The patient's home medications were continued for chronic medical conditions. The patient's hemoglobin did downtrend while in the hospital from 8.0-6.8. On the day of discharge, she was given a single unit of packed red blood cells. The patient has a chronic anemia likely due to her nutritional status and she likely came in slightly volume contracted thus contributing to the apparent downtrending hemoglobin. The patient denied any acute blood loss. The patient does have a history of GI bleed and will need to continue to follow up with GI as an outpatient as previously directed. At the time of discharge, the patient was very eager to be discharged home. Return precautions were given. Patient was instructed to follow up with her primary care physician within 1-2 weeks. The patient was again strongly encouraged to maintain a consistent diet. The patient voiced agreement and understanding of the discharge plan. All questions were answered. DISPOSITION: Stable. DISCHARGE INSTRUCTIONS: 1. Location: Home. 2. Diet: Heart healthy as tolerated with consistent meals. 3. Activity as tolerated. 4. Followup: The patient is to follow up with her primary care physician at [facility] within 1-2 weeks and her specialist as previously directed. Job ID: [id number] MTDD
== END 2020-06-08 17:50 | disposition home or self-care (01) | DRG 640 ==
LOC: ERS 11:06 → IMCU/EMU 13:18 → T4-B 06-07 13:21
PROVIDERS: ADMIT Family Medicine; ATTEND Family Medicine
PROC: 30233N1 Transfusion of Nonautologous Red Blood Cells into Peripheral Vein, Percutaneous Approach (ICD-10-PCS; principal; 2020-06-08)
DX: E16.2 Hypoglycemia, unspecified (principal); E43 Unspecified severe protein-calorie malnutrition; G93.41 Metabolic encephalopathy; I50.22 Chronic systolic (congestive) heart failure; I42.9 Cardiomyopathy, unspecified; I13.0 Hypertensive heart and chronic kidney disease with heart failure and stage 1 through stage 4 chronic kidney disease, or unspecified chronic kidney disease; N18.4 Chronic kidney disease, stage 4 (severe); D61.818 Other pancytopenia; Z68.1 Body mass index [BMI] 19.9 or less, adult; Z51.5 Encounter for palliative care; M19.90 Unspecified osteoarthritis, unspecified site; G40.909 Epilepsy, unspecified, not intractable, without status epilepticus; F32.9 Major depressive disorder, single episode, unspecified; E87.8 Other disorders of electrolyte and fluid balance, not elsewhere classified; F10.129 Alcohol abuse with intoxication, unspecified; D53.9 Nutritional anemia, unspecified; Z96.642 Presence of left artificial hip joint; F17.210 Nicotine dependence, cigarettes, uncomplicated; Z90.710 Acquired absence of both cervix and uterus; Z79.82 Long term (current) use of aspirin; Z79.899 Other long term (current) drug therapy; Z20.828 Contact with and (suspected) exposure to other viral communicable diseases; D63.1 Anemia in chronic kidney disease
CPT/HCPCS: 36415; 36416; 36430; 74176; 74181; 80048; 80053; 80307; 82550; 82607; 82746; 83525; 83540; 83550; 83690; 84425; 84681; 85025; 85610; 85730; 86850; 86900; 86901; 87635; 90471; 90662; G0008; J1644; J3411; J3475; J3490; J7042; P9016; U0003

== ENCOUNTER 2020-08-01 22:08 | Emergency (ER) | payer MEDICARE ==
--- NOTE | 2020-08-07 11:00 | EKG ---
Test Reason : Blood Pressure : / mmHG Vent. Rate : 075 BPM Atrial Rate : 075 BPM P-R Int : 184 ms QRS Dur : 096 ms QT Int : 430 ms P-R-T Axes : 068 028 084 degrees QTc Int : 480 ms Normal sinus rhythm Moderate voltage criteria for LVH, may be normal variant Prolonged QT Abnormal ECG Confirmed by LUIS EDUARDO ARNOLD DO ([id number]), editor at large HENNA OSBORN ([id number]) on 08/07/2020 11:00:03 AM Referred By: Confirmed By:LUIS EDUARDO ARNOLD DO
== END 2020-08-02 00:17 | disposition home or self-care (01) ==
LOC: ERS 22:08
DX: E86.0 Dehydration (principal); I10 Essential (primary) hypertension; M19.90 Unspecified osteoarthritis, unspecified site; D64.9 Anemia, unspecified; F17.210 Nicotine dependence, cigarettes, uncomplicated; Z79.899 Other long term (current) drug therapy; Z79.82 Long term (current) use of aspirin
CPT/HCPCS: 93005

== ENCOUNTER 2020-08-10 12:03 | Observation (INO) | payer MEDICARE ==
[2020-08-10 12:58] LABS: Hemoglobin 6.8 g/dL (12.0-16.0); Mean Corpuscular HGB CONC 34.1 g/dL (32.0-36.0); Mean Corpuscular Hemoglobin 35.9 pg (27.0-31.0); Platelet Count 164 thou/uL (130-400); RBC Distribution Width 15.9 % (11.5-14.5); Red Blood Cell (RBC) Count 1.89 mill/uL (4.20-5.40); White Blood Cell (WBC) Count 2.4 thou/uL (4.8-10.8)
[2020-08-10 13:17] LABS: Acetaminophen Less than 6.0 mcg/mL (10.0-30.0); Alcohol Less than 10 mg/dL (Less than 10); Salicylate Less than 8.0 mg/dL (15.0-30.0)
--- NOTE | 2020-08-10 13:19 | RAD ---
EXAM: Portable chest PROVIDED CLINICAL HISTORY: Chest pain COMPARISON: 05/11/2020 FINDINGS: Cardiac and mediastinal silhouette is within normal limits. No focal consolidation, pleural fluid or pneumothorax evident. IMPRESSION: No evidence for an acute cardiopulmonary process.
[2020-08-10 13:22] LABS: ALT (SGPT) Less than 7 U/L (8-55); AST (SGOT) 14 U/L (5-34); Albumin 3.4 g/dL (3.4-4.8); Alkaline Phosphatase 112 U/L (40-110); Anion Gap 17 mmol/L (10-20); BUN (Urea Nitrogen) 85 mg/dL (9.8-20.1); Bilirubin, Total 0.4 mg/dL (0.2-1.2); Calc. Creatinine Clearance 0 mL/min (70-130); Calcium 8.7 mg/dL (7.8-10.44); Carbon Dioxide 20 mmol/L (23-31); Chloride 109 mmol/L (98-107); Globulin 2.9 g/dL (2.4-3.5); Glucose 144 mg/dL (80-115); Potassium 5.1 mmol/L (3.5-5.1); Protein, Total 6.3 g/dL (6.0-8.3); Sodium 141 mmol/L (136-145)
[2020-08-10 13:24] LABS: Band 8 % (5-11); Eosinophils 2 % (0-10); Lymphocytes 20 % (21-51); MDiff Complete? YES; Monocytes 6 % (0-10); Neutrophil 64 % (42-75); Platelet Morphology Comment Appears Adequate; Polychromasia SLIGHT = 2-3 cells (100X) (0-2/hpf)
--- NOTE | 2020-08-10 13:40 | CT ---
CT BRAIN NONCONTRAST: DATE: 08/10/2020 HISTORY: 70-year-old female with dizziness and generalized weakness. FINDINGS: There is no evidence of acute intra-axial or extra-axial hemorrhage. There is no midline shift or any other mass effect. There is no extra-axial fluid collection. There is no evidence of obstructive hydrocephalus. Calvarium is intact. There is diffuse brain parenchymal volume loss. There are low att enuation areas in the white matter. These are nonspecific, but in a patient of this age, they are probably chronic ischemic white matter changes due to microvascular atherosclerosis. There is a left lateral 2 x 1.3 cm smoothly circumscribed extra-axial soft tissue density mass broadly abutting the inner table of the squamosal portion of left temporal bone, stable since 01/20/2013. There is a 1.2 x 1 .1 cm coarse calcification at the posterior medial inferior left temporal lobe, presumably extra-axial, also stable since 01/20/2013. The diffuse cerebral atrophy and chronic ischemic white juan pablo er changes have significantly progressed since 01/20/2013. There are 2 right posterior paramedian small right parietal cortical old infarctions, new since 01/20/2013. There has been no interval change overall since 02/22/2020 IMPRESSION: 1) No acute intracranial findings. 2) advanced involutional changes and high-grade chronic ischemic white matter changes. 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 4) left lateral temporal meningioma, stable since 01/20/2013. 5) coarse calcification at left posterior medial inferior temporal lobe, probably a calcified meningi misti, stable since 01/20/2013.
[2020-08-10 13:48] LABS: Amphetamine Not Detected (NotDetected); Bacteria/HPF 4+ HPF (None Seen); Barbiturates Screen Not Detected (NotDetected); Benzodiazepine Screen Not Detected (NotDetected); Bilirubin Negative (Negative); Blood, Urine Negative (Negative); Clarity Clear (Clear); Cocaine Metabolite Screen Not Detected (NotDetected); Glucose, Urine (Dipstick) Normal (Negative); Ketone, Urine Negative (Negative); Leukocyte 250 Leu/uL (Negative); Medtox Control Line Valid? VALID (VALID); Medtox Reader # READER 1; Methadone Not Detected (NotDetected); Methamphetamine Not Detected (NotDetected); Nitrite 1+ (Negative); Opiate Screen Not Detected (NotDetected); Oxycodone Screen Not Detected (NotDetected); Phencyclidine (PCP) Not Detected (NotDetected); Protein, Urine (Dipstick) Negative (Neg-Trace); RBC/HPF 0-3 HPF (0-3); Specific Gravity, Urine 1.014 (1.002-1.036); Squamous Epithelial 0-3 HPF (0-3); THC/Cannabinoid Screen Not Detected (NotDetected); Tricyclic Screen Not Detected (NotDetected); Urobilinogen Normal mg/dL (Less than 2); pH, Urine 5.5 (5.0-9.0)
--- NOTE | 2020-08-10 14:19 | PDOC.FPRHP ---
- History of Present Illness Chief Complaint: Weakness History of Present Illness: Pt is a 70 y/o F who presents to the ED today after her HH nurse noted that pt was hypotensive with SBP in the 60s. After 200ml via EMS to the ED pt's SBP normalized to 127/80. She has a hx of ETOH abuse and stated that her last use was this AM. She is unable to provide any other meaningful history. She is not complaining of any pain. ED Course: 1U PRBCs - Allergies/Adverse Reactions Allergies Allergy/AdvReac Type Severity Reaction Status Date / Time Gadolinium-Containing AdvReac Mild Emesis Verified 05/08/20 23:22 Contrast Medi - Home Medications Medication Instructions Recorded Confirmed Type Folic Acid [Folvite] 1 mg PO DAILY 08/28/19 08/10/20 History Aspirin [Ecotrin Low Strength] 81 mg PO DAILY 09/05/19 08/10/20 History Carvedilol [Coreg] 25 mg PO BID 02/14/20 08/10/20 History Pantoprazole [Protonix] 40 mg PO DAILY 02/14/20 08/10/20 History Sertraline HCl 50 mg PO DAILY 02/14/20 08/10/20 History Thiamine 100 mg PO DAILY tab 02/25/20 08/10/20 Rx Ferrous Sulfate [Feosol] 325 mg PO QAM-WM #30 tab 05/14/20 08/10/20 Rx Isosorbide Dinitrate [Isordil] 20 mg PO TID #90 tab 05/14/20 08/10/20 Rx Mecobalamin [B12 Active] 100 mcg PO DAILY 06/06/20 08/10/20 History Sodium Bicarbonate [Bicarbonate, 650 mg PO DAILY 06/06/20 08/10/20 History Sodium] hydrALAZINE [Apresoline] 25 mg PO Q8H 06/06/20 08/10/20 History levETIRAcetam [Keppra] 500 mg PO BID 06/06/20 08/10/20 History Multivitamin W/ Minerals 1 tab PO DAILY #30 tab 06/08/20 08/10/20 Rx [Theragran M] Nicotine [Nicoderm CQ] 21 mg TD DAILY #30 patch 06/08/20 08/10/20 Rx - History PMHx: -ETOH abuse -HFrEF -HTN -Anemia of Chronic Disease -Seizure disorder -Depresion -Tobacco Abuse -CKD stage 4 -Cachexia PSHx: -L hip surgery -Hysterectomy FHx: -Non contributory Social: -Everyday ETOH use, daily Gin use. Smokes 1 PPD. - Review of Systems ROS unobtainable: due to mental status - Vital signs BP: 153/82, HR 72, Temp: 97.3, RR 16 - Physical Exam -Constitutional: cachexic appearing HEENT: normocephalic and atraumatic Neck: supple Heart: RRR, normal S1/S2, no murmurs/rubs/gallops Lungs: CTAB, no respiratory distress, good air movement, no rales/rhonchi, no wheezing Abdomen: soft, non-tender, bowel sounds present, no masses/distention Psychiatric: other (sleeping. nods to yes and no questions.) FMR H&P: Results - Labs Result Diagrams: 08/10/20 12:44 08/10/20 12:44 Lab results: WBC 2.4 thou/uL (4.8-10.8) L 08/10/20 12:44 Hgb 6.8 g/dL (12.0-16.0) L 08/10/20 12:44 Hct 19.9 % (36.0-47.0) L 08/10/20 12:44 MCV 105.0 fL (78.0-98.0) H 08/10/20 12:44 Plt Count 164 thou/uL (130-400) 08/10/20 12:44 Band Neuts % (Manual) 8 % (5-11) 08/10/20 12:44 Sodium 141 mmol/L (136-145) 08/10/20 12:44 Potassium 5.1 mmol/L (3.5-5.1) 08/10/20 12:44 Chloride 109 mmol/L (98-107) H 08/10/20 12:44 Carbon Dioxide 20 mmol/L (23-31) L 08/10/20 12:44 BUN 85 mg/dL (9.8-20.1) H 08/10/20 12:44 Creatinine 2.70 mg/dL (0.6-1.1) H 08/10/20 12:44 Glucose 144 mg/dL (80-115) H 08/10/20 12:44 Calcium 8.7 mg/dL (7.8-10.44) 08/10/20 12:44 Total Bilirubin 0.4 mg/dL (0.2-1.2) 08/10/20 12:44 AST 14 U/L (5-34) 08/10/20 12:44 ALT Less than 7 U/L (8-55) L 08/10/20 12:44 Alkaline Phosphatase 112 U/L (40-110) H 08/10/20 12:44 Ammonia 23 umol/L (18-72) 08/10/20 13:18 Serum Total Protein 6.3 g/dL (6.0-8.3) 08/10/20 12:44 Albumin 3.4 g/dL (3.4-4.8) 08/10/20 12:44 Urine Ketones Negative mg/dL (Negative) 08/10/20 13:26 Urine Blood Negative (Negative) 08/10/20 13:26 Urine Nitrite 1+ (Negative) A 08/10/20 13:26 Ur Leukocyte Esterase 250 Gunner/uL (Negative) A 08/10/20 13:26 Urine RBC 0-3 HPF (0-3) 08/10/20 13:26 Urine WBC 7-10 HPF (0-3) A 08/10/20 13:26 Ur Squamous Epith Cells 0-3 HPF (0-3) 08/10/20 13:26 Urine Bacteria 4+ HPF (None Seen) A 08/10/20 13:26 - Radiology Interpretation Other Status: report reviewed by me (Brain CT: no acute intracranial process Chest XR: no acute cardiac process) FMR H&P: A/P - Plan ##Acute Metabolic Encephalopathy 2/2 to UTI vs. Acute on Chronic Anemia -Anemia is macrocytic in nature, 2/2 to patient's chronic alcoholism - hgb of 6.8 on arrival, pt did not report symptoms - transfuse 1 unit PRBC, 4 hr post transfusion H&H - monitor BP and mental status response ##UTI - positive nitrite, leuks, and bacteria on urine - 2g Rocephin IV in ED, likely adequate treatment - cultures pending ##Cachexia -2/2 to patient's ETOH abuse -regular diet -nutrition/dietary to be consulted ##HFrEF -aware especially with transfusion of PRBCs ##ETOH abuse -aware -ASE protocol -pt has not had DT or withdrawal before ##CKD 4 -aware BUN 85 Leaf Coverer 2.7 -monitoring BUN/Leaf Coverer with AM labs -pt will likely need gentle fluid hydration ##HTN -will see about continuing medications ##Seizure disorder -on keppra at home ##Depression -aware, home meds continue DIET: Regular VTE: None PCP: Manoj Dispo: admitted to medical. will monitor mental status. FMR H&P: Upper Level - Pertinent history S: Pt is quite somnolent on exam and is difficult to obtain hx from. ED reports pt arrived via EMS. They were called for low BP per home health with a reported systolic of 60. She received 200ml saline prior to arrival and was found to have BP WNL upon arrival. Pt was subsequently found to have hgb of 6.8. She has chronic anemia secondary to alcohol abuse and severe protein calorie malnutrition. Has required transfusions for this multiple times in the past. 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 ROS: Unable to obtain full ROS due to mental status at time of exam - Denies any pain - Pertinent findings O: Vitals - as noted above Gen: NAD, somnolent, cachectic HEENT: Mild scleral icterus, EOMi Card: RRR, no audible murmur Pulm: Normal rate, no extra lung sounds, shallow breaths Abd: NTP, not distended Ext: Diffuse muscle wasting, no edema or cyanosis Skin: Dry, scaly Neuro: Arousable, minimally conversive, will nod intermittently to questions A/P: Acute on Chronic Macrocytic Anemia - 2/2 severe protein calorie malnutrition and chronic alcoholism - hgb of 6.8 on arrival - transfuse 1 unit PRBC, 4 hr post transfusion H&H - monitor BP and mental status response - consult nutrition UTI - positive nitrite, leuks, and bacteria on urine - 2g Rocephin IV in ED, likely adequate treatment - If pt remains with AMS after transfusion, may be able to attribute to infection and will continue treatment - cultures pending Chronic conditions and management as noted above in the internet site designer note - Plan Date/Time: 08/10/20 [id number] Cody Fairbanks D.O. - PGY2, have evaluated this patient and agree with findings/plan as outlined by internet site designer resident. Pertinent changes/additions are listed here.
[2020-08-10] MEDS ORDERED: cefTRIAXone\\ROCEPHIN 2 GM VIAL ONE (14:21)
[2020-08-10] MEDS ORDERED: Acetaminophen 325 MG TAB PO PRN (15:53)
[2020-08-10] MEDS ORDERED: Ondansetron PF 4 MG/2 ML Vial IVP PRN (15:53)
[2020-08-10] MEDS ORDERED: Acetaminophen 650 MG Suppository PR PRN (15:53)
[2020-08-10] MEDS ORDERED: Ondansetron ODT 4 MG TAB PO PRN (15:53)
[2020-08-10] MEDS ORDERED: Calcium Carbonate 500 MG ChewTAB PO PRN (15:53)
[2020-08-10 16:11] VITALS: BMI 13.1
[2020-08-10 16:54] LABS: Troponin I 0.022 ng/mL (< 0.028)
[2020-08-10 22:09] LABS: SARS-CoV-2 MS2 Positive; SARS-CoV-2 N Gene Negative; SARS-CoV-2 S Gene Negative; SARS-CoV-2 by NAA Not Detected (NotDetected); SARS-CoV-2 orf1ab Negative
[2020-08-11] MEDS ORDERED: Carvedilol 6.25 MG TAB PO SCH ×2 (00:30→08:00)
[2020-08-11 03:04] LABS: Hemoglobin 8.9 g/dL (12.0-16.0); Mean Corpuscular Hemoglobin 33.6 pg (27.0-31.0); Mean Corpuscular Volume 98.8 fL (78.0-98.0); Mean Platelet Volume 7.1 fL (7.4-10.4); Platelet Count 145 thou/uL (130-400); RBC Distribution Width 17.9 % (11.5-14.5); Red Blood Cell (RBC) Count 2.65 mill/uL (4.20-5.40); White Blood Cell (WBC) Count 3.2 thou/uL (4.8-10.8)
--- NOTE | 2020-08-11 07:36 | PDOC.FM ---
- Subjective Subjective: Doing well this morning. Feeling much better. Eager for discharge. Denies any urinary sxs, no hematuria, dysuria, suprapubic tenderness. No fever/chills. Denies GARRISON, CP, SOB, n/v, tolerating PO intake. - Objective MAR Reviewed: Yes Vital Signs & Weight: Vital Signs (12 hours) Temp Pulse Pulse Resp BP BP BP 08/11/20 05:17 98.0 F 73 16 181/99 H 08/11/20 01:42 153/82 H 08/10/20 20:05 97.4 F L 74 16 189/105 H 08/10/20 20:00 98.5 F 74 16 184/113 H Pulse Ox 08/11/20 05:17 96 08/11/20 01:42 08/10/20 20:05 08/10/20 20:00 96 Weight Weight 36.832 kg I&O: 08/10/20 08/11/20 08/12/20 06:59 06:59 06:59 Intake Total 1090 Balance 1090 Result Diagrams: 08/11/20 02:48 08/10/20 12:44 Phys Exam - Physical Examination Constitutional: NAD cachetic, pleasant, good spirits HEENT: PERRLA, moist MMs Decreased breath sounds throughout Cardiovascular: RRR Gastrointestinal: soft, no distention, positive bowel sounds Musculoskeletal: no edema, pulses present Neurological: moves all 4 limbs Psychiatric: normal affect, A&O x 3 Dx/Plan (1) Acute metabolic encephalopathy Code(s): G93.41 - METABOLIC ENCEPHALOPATHY Status: Acute (2) Symptomatic anemia Code(s): D64.9 - ANEMIA, UNSPECIFIED Status: Acute (3) UTI (urinary tract infection) Status: Acute (4) Alcohol abuse Code(s): F10.10 - ALCOHOL ABUSE, UNCOMPLICATED Status: Chronic (5) Heart failure with reduced ejection fraction Code(s): I50.20 - UNSPECIFIED SYSTOLIC (CONGESTIVE) HEART FAILURE Status: Chronic (6) Hypertension Code(s): I10 - ESSENTIAL (PRIMARY) HYPERTENSION Status: Chronic Qualifiers: (7) Protein-calorie malnutrition, severe Code(s): E43 - UNSPECIFIED SEVERE PROTEIN-CALORIE MALNUTRITION Status: Chronic - Plan Plan: 70yo F with h/o HFrEF, EtOH abuse, severe protein calorie malnutrition, CKD4, HTN who presented with acute metabolic encephalopathy as well as symptomatic anemia. #Acute Metabolic Encephalopathy 2/2 to UTI vs. Acute on Chronic Anemia - Anemia is macrocytic in nature, 2/2 to patient's chronic alcoholism and malnutrition. Has been heme in past. - Hb 6.8 -> 8.9 s/p 1u pRBC - Sx improve this AM, A/o x3, eager for discharge #UTI - positive nitrite, leuks, and bacteria on urine. UCx E. Coli - s/p 2g [place] in ED, transition to Macrobid for discharge #Severe protein calorie malnutrition -2/2 to patient's ETOH abuse. Regular diet and ensure TID -nutrition/dietary consulted #HFrEF - aware especially with transfusion of PRBCs. 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 S/p 1u pRBC and UTI treatment. Eager for discharge and stable. Likely discharge this afternoon. Plans to transition to hospice as outpatient, going to discuss with son over the Holidays. Will continue to follow as outpatient through [facility].
[2020-08-11] MEDS ORDERED: Ferrous Sulfate 325 MG TAB PO SCH (08:00)
[2020-08-11] MEDS ORDERED: Folic Acid 1 MG TAB PO SCH (09:00)
[2020-08-11] MEDS ORDERED: FLU VACC QS2020-21(65YR UP)/PF 240 MCG/0.7 ML SYRINGE IM ONE (09:00)
[2020-08-11] MEDS ORDERED: Isosorbide Dinitrate 20 MG TAB PO SCH (09:00)
[2020-08-11] MEDS ORDERED: Sodium Bicarbonate Tab 325 MG TAB PO SCH (09:00)
[2020-08-11] MEDS ORDERED: Multivitamin W/ Minerals 1 TAB PO SCH (09:00)
[2020-08-11] MEDS ORDERED: levETIRAcetam 500 MG TAB PO SCH (09:00)
[2020-08-11] MEDS ORDERED: Aspirin 81 mg Enteric Coated Tablet PO SCH (09:00)
[2020-08-11] MEDS ORDERED: Thiamine 100 MG TAB PO SCH (09:00)
[2020-08-11] MEDS ORDERED: Nicotine 21 MG PATCH TD SCH (09:00)
[2020-08-11] MEDS ORDERED: hydrALAZINE 25 MG TAB PO SCH (09:00)
[2020-08-11] MEDS ORDERED: MECOBALAMIN 1000 MCG PO SCH (09:00)
--- NOTE | 2020-08-11 10:36 | PDOC.BPN ---
- Brief Progress Note Encounter Date: 08/10/20 Encounter Time: 13:30 Continuity Note: Saw and examined patient. Agree with primary team documentation and assessment. Presented for acute metabolic encephalopathy 2/2 UTI and sxs anemia. S/p 1u pRBC. Treating UTI. Discussed with patient her long-term care and prognosis. Paula dunne states she has decided she would like to transition to hospice, plans to talk with son over the holidays and then begin transition. Gets Home Health from [facility]. Patient would like to remain Full Code for now, but discuss code status as we move forward. Patient appreciated PCP visit. All questions answered. Patient will reach out to office after talking with son and we can place the order for hospice.
[2020-08-11] MEDS ORDERED: Nitrofurantoin Monohyd/M-Cryst 100 MG CAP PO SCH ×2 (11:45→21:00)
[2020-08-11 15:06] VITALS: BP 112/78; TEMP 98
--- NOTE | 2020-08-14 08:33 | DIS ---
DATE OF ADMISSION: 08/10/2020 DATE OF DISCHARGE: 08/11/2020 RESIDENT: Leon Thapa MD ADMITTING ATTENDING: Kam Robertson MD. DISCHARGING ATTENDING: Kam Robertson MD. CONSULTS: None. PROCEDURES: 1. Brain CT performed on 08/10/2020 demonstrating no acute intracranial findings. Advanced involutional changes and high-grade chronic ischemic white matter changes. 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 Left lateral temporal meningioma stable since January 20, 2013. Coarse calcifications at left posterior medial-inferior temporal lobe, probably a calcified meningioma, stable since 01/20/2013. 2. Chest x-ray on 08/10/2020, demonstrating no evidence of acute cardiopulmonary process. 3. Transfusion of 1 unit packed red blood cells on 08/10/2020. PRIMARY DIAGNOSES: 1. Metabolic encephalopathy secondary to urinary tract infection as well as symptomatic anemia. 2. Urinary tract infection. SECONDARY DIAGNOSES: 1. Severe protein calorie malnutrition. 2. Heart failure with reduced ejection fraction. 3. Alcohol abuse. 4. Chronic kidney disease 4. 5. Hypertension. 6. Seizure disorder. 7. Depression. DISCHARGE MEDICATIONS: 1. Folic acid 1 mg p.o. daily. 2. Aspirin 81 mg p.o. daily. 3. Protonix 40 mg p.o. daily. 4. Zoloft 50 mg p.o. daily. 5. Coreg 25 mg p.o. b.i.d. 6. Thiamine 100 mg p.o. daily. 7. Ferrous sulfate 325 mg p.o. q.a.m. 8. Isosorbide dinitrate 20 mg p.o. t.i.d. 9. Vitamin B12 100 mcg p.o. daily. 10. Sodium bicarb 650 mg p.o. daily. 11. Keppra 500 mg p.o. b.i.d. 12. Hydralazine 25 mg p.o. q.8 hours. 13. Nicotine patch 21 mg daily. 14. Multivitamin one tablet p.o. daily. 15. Macrobid 100 mg p.o. b.i.d. x4 days. Discontinued medications, none. HISTORY OF PRESENT ILLNESS AND HOSPITAL COURSE: The patient is a 70-year-old female with history of heart failure with reduced ejection fraction, alcohol abuse, and severe protein calorie malnutrition, who presented with acute metabolic encephalopathy. She was initially found to have a hemoglobin of 6.8. Subsequently transfused 1 unit packed red blood cells with improvement of her hemoglobin to 8.9. She had chronic leukopenia and anemia secondary to malnutrition and this has been worked up by Hematology in the past. She also was found to have UTI that at the time of discharge was found to be presumptive E coli. She was given 2 g Rocephin in the emergency room and discharged on Macrobid as previous cultures were sensitive to Macrobid. She was admitted overnight for further observation. Overnight, the patient did very well. Her mentation returned to baseline and the patient was eager for discharge home. Home medications were restarted. Vital signs were stable. The patient voiced that she has been considering transitioning to hospice and would like more information. Case Management was consulted for assistance who provided information and the patient plans to meet with son over the holidays with transition to possible DNR status and hospice. She is instructed to reach out to primary care provider's office for orders and assistance as needed. At the time of discharge, the patient was stable and at baseline and needed to be discharged home. Discharge plan discussed with the patient who voiced agreement and understanding. All questions were answered. DISPOSITION: Stable. DISCHARGE INSTRUCTIONS: 1. Location: Home with home health. 2. Diet: Regular with Ensure t.i.d. 3. Activity: As tolerated. 4. Followup: The patient to follow up with primary care physician within one week of discharge. Job ID: [id number] [facility]ITALLuciana
== END 2020-08-11 15:00 | disposition home health service (06) ==
LOC: ERS 12:03 → T4-B 15:51
PROVIDERS: ADMIT Family Medicine; ATTEND Family Medicine
PROC: 30233N1 Transfusion of Nonautologous Red Blood Cells into Peripheral Vein, Percutaneous Approach (ICD-10-PCS; principal; 2020-08-10)
DX: N39.0 Urinary tract infection, site not specified (principal); G93.41 Metabolic encephalopathy; E43 Unspecified severe protein-calorie malnutrition; I13.0 Hypertensive heart and chronic kidney disease with heart failure and stage 1 through stage 4 chronic kidney disease, or unspecified chronic kidney disease; I50.20 Unspecified systolic (congestive) heart failure; N18.4 Chronic kidney disease, stage 4 (severe); D63.1 Anemia in chronic kidney disease; F10.10 Alcohol abuse, uncomplicated; F32.9 Major depressive disorder, single episode, unspecified; G40.909 Epilepsy, unspecified, not intractable, without status epilepticus; F17.210 Nicotine dependence, cigarettes, uncomplicated; Z68.1 Body mass index [BMI] 19.9 or less, adult; Z79.82 Long term (current) use of aspirin; Z79.899 Other long term (current) drug therapy; Z91.041 Radiographic dye allergy status; Z20.828 Contact with and (suspected) exposure to other viral communicable diseases
CPT/HCPCS: 36430; 51701; 70450; 71045; 80053; 80306; 80307; 82140; 84484 ×2; 85025; 85027; 86850; 86900; 86901; 86920; 87077; 87086; 87186; 93005; 96365; 99285; P9016; U0003; 36415; 81003; 81015; 87635; G0378; J0696

== ENCOUNTER 2020-08-28 11:15 | Observation (INO) | payer MEDICARE ==
[2020-08-28] MEDS ORDERED: Dextrose 50% Abboject 50 ML SYRINGE ONE ×2 (12:31→12:32)
[2020-08-28 12:46] LABS: #Lymphocytes 0.3 thou/uL (1.20-3.40); #Monocytes 0.1 thou/uL (0.11-0.59); #Neutrophils 1.3 thou/uL (1.40-6.50); %Eosinophils 1.6 % (0.0-10.0); %Lymphocytes 16.5 % (21.0-51.0); %Monocytes 5.8 % (0.0-10.0); %Neutrophils 76.2 % (42.0-75.0); Hemoglobin 6.8 g/dL (12.0-16.0); Mean Corpuscular HGB CONC 33.9 g/dL (32.0-36.0); Mean Corpuscular Hemoglobin 34.9 pg (27.0-31.0); Platelet Count 88 thou/uL (130-400); RBC Distribution Width 16.8 % (11.5-14.5); Red Blood Cell (RBC) Count 1.95 mill/uL (4.20-5.40); White Blood Cell (WBC) Count 1.7 thou/uL (4.8-10.8)
[2020-08-28 12:49] LABS: INR-International Normal Ratio 1.1; Prothrombin Time 14.1 sec (12.0-14.7)
--- NOTE | 2020-08-28 12:49 | RAD ---
Exam: Chest one view HISTORY:Cough and altered mental status Comparison: 12/10/2019 FINDINGS: Cardiac silhouette: Normal Aorta: Atherosclerosis. Pulmonary vessels: Normal Costophrenic angles: Clear LUNGS: No masses or consolidation. Lungs are hyperinflated with chronic lung parenchymal changes. Pneumothorax: None Osseous abnormalities: None IMPRESSION: 1. Hyperinflation. Chronic lung parenchymal changes. 2. Atherosclerosis.
[2020-08-28 12:50] LABS: PTT 38.9 sec (22.9-36.1)
[2020-08-28 13:04] LABS: ALT (SGPT) 8 U/L (8-55); AST (SGOT) 28 U/L (5-34); Albumin 3.4 g/dL (3.4-4.8); Alkaline Phosphatase 107 U/L (40-110); Anion Gap 24 mmol/L (10-20); BUN (Urea Nitrogen) 96 mg/dL (9.8-20.1); Bilirubin, Total 0.5 mg/dL (0.2-1.2); CK (CPK) 33 U/L (29-168); Calc. Creatinine Clearance 0 mL/min (70-130); Calcium 8.1 mg/dL (7.8-10.44); Carbon Dioxide 12 mmol/L (23-31); Chloride 104 mmol/L (98-107); Globulin 2.9 g/dL (2.4-3.5); Lipase 119 U/L (8-78); Potassium 4.6 mmol/L (3.5-5.1); Protein, Total 6.3 g/dL (6.0-8.3); Sodium 135 mmol/L (136-145)
[2020-08-28 13:09] LABS: Bilirubin Negative (Negative); Blood, Urine Negative (Negative); Clarity Clear (Clear); Glucose, Urine (Dipstick) Normal (Negative); Ketone, Urine Trace mg/dL (Negative); Leukocyte Negative Leu/uL (Negative); Nitrite Negative (Negative); Protein, Urine (Dipstick) 30 mg/dL (Neg-Trace); RBC/HPF 0-3 HPF (0-3); Specific Gravity, Urine 1.013 (1.002-1.036); Urobilinogen Normal mg/dL (Less than 2); WBC/HPF 0-3 HPF (0-3)
[2020-08-28 13:11] LABS: Glucose 37 mg/dL (80-115)
[2020-08-28 13:13] LABS: Anisocytosis SLIGHT = 6-15 cells (100X) (0-5/hpf); Hypochromia SLIGHT = 6-15 cells (100X) (0-5/hpf); MDiff Complete? YES; Macrocytosis SLIGHT = 6-15 cells (100X) (0-5/hpf); Platelet Morphology Comment Appears Decreased
[2020-08-28 13:17] LABS: Bacteria/HPF None Seen HPF (None Seen)
[2020-08-28 13:18] LABS: Transitional Epithelial 0-3 HPF (None Seen)
[2020-08-28 13:26] LABS: CKMB 2.3 ng/mL (0-6.6)
[2020-08-28] MEDS ORDERED: Multivitamins, Adult 10 ML, Thiamine HCl 100 MG, Folic Acid 1 MG in Dextrose 5 %-0.45 %... IV SCH (13:30)
--- NOTE | 2020-08-28 13:46 | PDOC.FPRHP ---
- History of Present Illness Chief Complaint: Hypoglycemia History of Present Illness: Patient is a 70 yo F, PMHx ETOH abuse, HFrEF, Anemia of Chronic Disease, Cachexia who was brought to the ED due to weakness, with N/V that started this morning. Patient states she started vomiting when she woke up this morning, vomited about 3x, then had generalized weakness. She did not want to go to the hospital, but her mother called EMS. On the scene patient had a glucose of 26. On arrival to ED patient received an amp of D10 and her glucose went up to 97. Patient states that she has not been eating well for the past few days, noting that she only ate a small meal yesterday and has not eaten anything today. She denies blood in her vomit or stools, fever/chills, abdominal pain, vision changes, urinary sxs. She reports her last drink of alcohol was last night, 1 mini bottle of gin. ED Course: Patient received 1 amp of D50, banana bag and was started on 1u pRBCs - Allergies/Adverse Reactions Allergies Allergy/AdvReac Type Severity Reaction Status Date / Time Gadolinium-Containing AdvReac Mild Emesis Verified 05/08/20 23:22 Contrast Medi - Home Medications Medication Instructions Recorded Confirmed Type Folic Acid [Folvite] 1 mg PO DAILY 08/28/19 08/28/20 History Carvedilol [Coreg] 25 mg PO BID 02/14/20 08/28/20 History Pantoprazole [Protonix] 40 mg PO DAILY 02/14/20 08/28/20 History Sertraline HCl 50 mg PO DAILY 02/14/20 08/28/20 History Thiamine 100 mg PO DAILY tab 02/25/20 08/28/20 Rx Ferrous Sulfate [Feosol] 325 mg PO QAM-WM #30 tab 05/14/20 08/28/20 Rx Isosorbide Dinitrate [Isordil] 20 mg PO TID #90 tab 05/14/20 08/28/20 Rx Mecobalamin [B12 Active] 100 mcg PO DAILY 06/06/20 08/28/20 History Sodium Bicarbonate [Bicarbonate, 650 mg PO DAILY 06/06/20 08/28/20 History Sodium] hydrALAZINE [Apresoline] 25 mg PO Q8H 06/06/20 08/28/20 History levETIRAcetam [Keppra] 500 mg PO BID 06/06/20 08/28/20 History Multivitamin W/ Minerals 1 tab PO DAILY #30 tab 06/08/20 08/28/20 Rx [Theragran M] - History PMHx: -ETOH abuse -HFrEF -HTN -Anemia of Chronic Disease -Seizure disorder -Depresion -Tobacco Abuse -CKD stage 4 -Cachexia PSHx: -L hip surgery -Hysterectomy FHx: -Non contributory Social: -Everyday ETOH use, drinks abour 4-5 mini bottles of gin a day, Smokes .5-1 PPD x 20+ years, no drug use - Review of Systems General: reports: weight/appetite/sleep changes. denies: fever/chills Eyes: denies: eye pain, vision changes ENT: denies: nasal congestion, rhinorrhea Respiratory: denies: cough, congestion Cardiovascular: denies: chest pain, palpitation Gastrointestinal: reports: nausea, vomiting. denies: diarrhea, constipation, abdominal pain Genitourinary: denies: incontinence, dysuria Skin: denies: rashes, lesions Musculoskeletal: denies: pain, tenderness Neurological: reports: weakness. denies: numbness, syncope - Vital signs BP: 112/64, MAP: 80, Pulse: 78, Resp: 16, Temp: 98.6 (Oral), O2 sat: 96 on (Room Air), Wt 49.9kg - Physical Exam -Constitutional: cachectic, AxO x 3 HEENT: normocephalic and atraumatic, PERRLA, EOMI, MMM Neck: supple, FROM Heart: RRR, normal S1/S2 Lungs: CTAB, no respiratory distress, no wheezing Abdomen: soft -Abdomen: mild tenderness to palpation RUQ, LLQ Musculoskeletal: normal structure, normal tone Neurological: no focal deficit Skin: no rash/lesions Heme/Lymphatic: no unusual bruising or bleeding Psychiatric: intact recent and remote memory FMR H&P: Results - Labs Result Diagrams: 08/29/20 04:17 08/29/20 04:17 Lab results: WBC 1.7 thou/uL (4.8-10.8) L 08/28/20 12:34 Hgb 6.8 g/dL (12.0-16.0) L 08/28/20 12:34 Hct 20.2 % (36.0-47.0) L 08/28/20 12:34 MCV 103.0 fL (78.0-98.0) H 08/28/20 12:34 Plt Count 88 thou/uL (130-400) L 08/28/20 12:34 Neutrophils % 76.2 % (42.0-75.0) H 08/28/20 12:34 Sodium 135 mmol/L (136-145) L 08/28/20 12:34 Potassium 4.6 mmol/L (3.5-5.1) 08/28/20 12:34 Chloride 104 mmol/L (98-107) 08/28/20 12:34 Carbon Dioxide 12 mmol/L (23-31) L 08/28/20 12:34 BUN 96 mg/dL (9.8-20.1) H 08/28/20 12:34 Creatinine 3.30 mg/dL (0.6-1.1) H 08/28/20 12:34 Glucose 37 mg/dL (80-115) L* 08/28/20 12:34 Calcium 8.1 mg/dL (7.8-10.44) 08/28/20 12:34 Total Bilirubin 0.5 mg/dL (0.2-1.2) 08/28/20 12:34 AST 28 U/L (5-34) 08/28/20 12:34 ALT 8 U/L (8-55) 08/28/20 12:34 Alkaline Phosphatase 107 U/L (40-110) 08/28/20 12:34 Creatine Kinase 33 U/L (29-168) 08/28/20 12:34 CK-MB (CK-2) 2.3 ng/mL (0-6.6) 08/28/20 12:34 B-Natriuretic Peptide 125.6 pg/mL (0-100) H 08/28/20 12:34 Serum Total Protein 6.3 g/dL (6.0-8.3) 08/28/20 12:34 Albumin 3.4 g/dL (3.4-4.8) 08/28/20 12:34 Lipase 119 U/L (8-78) H 08/28/20 12:34 Urine Ketones Trace mg/dL (Negative) A 08/28/20 12:46 Urine Blood Negative (Negative) 08/28/20 12:46 Urine Nitrite Negative (Negative) 08/28/20 12:46 Ur Leukocyte Esterase Negative Ugnner/uL (Negative) 08/28/20 12:46 Urine RBC 0-3 HPF (0-3) 08/28/20 12:46 Urine WBC 0-3 HPF (0-3) 08/28/20 12:46 Ur Squamous Epith Cells 4-6 HPF (0-3) A 08/28/20 12:46 Urine Bacteria None Seen HPF (None Seen) 08/28/20 12:46 - EKG Interpretation EKG: SR 83 with 1st degree AV Block, QTc 495, VA Interval 293, no STEMI FMR H&P: A/P - Plan Hypoglycemia 2/2 ETOH Abuse/Severe Calorie Malnutrition BG 26, given 1 amp D50 in ED Previous admissions for hypoglycemia, 06/09/2020 negative imaging for insulinoma, Hx normal insulin level and c-peptide, unlikely exogenous diabetic medication use Previous episodes of hypoglycemia resolved with alcohol abstinence and adequate PO intake - continue to monitor with q4hr glucose checks - consider anthropology lecturer consult - serum ETOH and UDS ordered Acute on chronic anemia with pancytopenia 6.8 on admission, denies sxs of GI bleed other than weakness S/p 1u pRBCs started in ED Has hx GI bleed in 04/2020, no signs of bleeding at this time but will consider if Hgb continues to drop post transfusion - 4 hour post-transfusion H/H - am CBC - continue folic acid, B12, thiamine Anion gap metabolic acidosis Albumin corrected anion gap 20.5, Bicarb 12 Likely component of alcoholic ketoacidosis considering history, ketones present in UA - 1 amp bicarb ordered - Monitor with am BMP ETOH Abuse Drinks 4-5 mini bottles of gin a night, last drink 1/8 at night Banana bag in ED Lipase 119 - ASE protocol - cessation counseling - continue folic acid, B12 and thiamine as above - ETOH ordered as above Prolonged QT & VA interval - aware HORTENCIA on CKD4 Cr 3.3, baseline 2.4, baseling GFRs 20s Patient received 1 amp D50, banana bag and is getting transfused 1 uRBCs - will hold on giving additional fluids for now given hx Heart Failure and patient has received above fluids - am BMP HFrEF Echo Apr 2020 EG 30-35% - monitor for signs of volume overload given fluids given on admission - strict I/Os HTN - will hold home meds due to lower bps in ED - reevaluate in the morning Seizure Disorder - resume keppra Tobacco Use - cessation counseling Depression -resume home meds DVT ppx: SCDs considering thrombocytopenia Diet: Regular PCP: DANNY Dispo: admit to telemetry for observation, could potentially discharge tomorrow if labs improved FMR H&P: Upper Level - Plan Date/Time: 08/28/20 1346 I, Isi Royal, have evaluated this patient and agree with findings/plan as outlined by international marketing intern resident. Pertinent changes/additions are listed here. 70 yo F presents for nausea, vomiting, weakness, decreased PO intake. BG 26, given 1 amp d50. No fever, chills or signs of infection. Last drink last night, 1 small bottle of gin. Vitals: BP: 114/67, MAP: 82, Pulse: 80, Resp: 16, Temp: 97.7 (Oral), Pain: 0, O2 sat: 98 on (Room Air) Gen: NAD, cachectic HEENT: EOMI Card: RRR, no audible murmur Pulm: Normal rate, no extra lung sounds, shallow breaths Abd: thin, epigastrium slightly TTP Ext: Diffuse muscle wasting, no edema or cyanosis Hypoglycemia likely 2/2 poor PO intake - BG 26, given 1 amp D50 in ED - Patient has hx of admissions for hypoglycemia in the past. 05/2020 she had abdominal imaging (CT followed by MRI) that did not suggest insulinoma. Exogenous diabetic medications also not likely contributory - none in home. In addition to normal insulin level and c-peptide as well. - In this past this has resolved with regular PO intake and alcohol abstinence while inpatient. - Considering prior workup, will not pursue further testing at this time. Acute on Chronic Macrocytic Anemia - 2/2 severe protein calorie malnutrition and chronic alcoholism - hgb of 6.8 on arrival - transfuse 1 unit PRBC, 4 hr post transfusion H&H. Monitor for signs of volume overload considering hx HFrEF - monitor BP and mental status response - Has hx GI bleed in 04/2020, no signs of bleeding at this time but will consider if Hgb continues to drop post transfusion - Continue previously prescribed folic acid, B12, thiamine Anion gap metabolic acidosis - Albumin corrected anion gap 20.5, Bicarb 12, 1 amp ordered - Likely component of alcoholic ketoacidosis considering history, ketones present in UA - Monitor with am BMP, expect improvement HORTENCIA on CKD4 - Cr 3.3, baseline GFR 20s Alcohol abuse - s/p banana bag in ED - ASE protocol, last drink 08/27 at night - Lipase 119 which does not meet criteria for pancreatitis 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 Sheldon I agree with the History, Examination, Assessment and Plan documented above with any addition or exceptions noted below.
[2020-08-28] MEDS ORDERED: Dextrose 5% in Water 1,000 ML IV PRN (14:16)
[2020-08-28] MEDS ORDERED: Dextrose 50% Abboject 50 ML SYRINGE SLOW IVP PRN (14:16)
[2020-08-28] MEDS ORDERED: Sodium Bicarb 50 MEQ/50 ML Abboject 8.4% SYRINGE IVP SCH (14:45)
[2020-08-28] MEDS ORDERED: Folic Acid 1 MG TAB PO SCH (15:00)
[2020-08-28] MEDS ORDERED: Lactated Ringer's 1,000 ML IV SCH (15:00)
[2020-08-28] MEDS ORDERED: Nicotine 14 MG PATCH TD SCH (15:00)
[2020-08-28] MEDS ORDERED: Thiamine 100 MG TAB PO SCH (15:00)
[2020-08-28 15:04] LABS: Amphetamine Not Detected (NotDetected); Barbiturates Screen Not Detected (NotDetected); Benzodiazepine Screen Not Detected (NotDetected); Cocaine Metabolite Screen Not Detected (NotDetected); Medtox Control Line Valid? VALID (VALID); Medtox Reader # READER 4; Methadone Not Detected (NotDetected); Methamphetamine Not Detected (NotDetected); Opiate Screen Not Detected (NotDetected); Oxycodone Screen Not Detected (NotDetected); Phencyclidine (PCP) Not Detected (NotDetected); THC/Cannabinoid Screen Not Detected (NotDetected); Tricyclic Screen Not Detected (NotDetected)
[2020-08-28 17:05] VITALS: BMI 18.8
[2020-08-28] MEDS ORDERED: Diazepam 5 MG TAB PO PRN (21:06)
[2020-08-28] MEDS ORDERED: Diazepam 5 MG TAB PO SCH (21:15)
[2020-08-28] MEDS: Carvedilol 25 MG TAB PO SCH (21:24)
[2020-08-28] MEDS: levETIRAcetam 500 MG TAB PO SCH (21:24)
[2020-08-28] MEDS: Isosorbide Dinitrate 20 MG TAB PO SCH (21:24)
[2020-08-28 23:11] LABS: Hemoglobin 8.1 g/dL (12.0-16.0)
[2020-08-29 02:42] LABS: SARS-CoV-2 MS2 Positive; SARS-CoV-2 N Gene Negative; SARS-CoV-2 S Gene Negative; SARS-CoV-2 by NAA Not Detected (NotDetected); SARS-CoV-2 orf1ab Negative
[2020-08-29] MEDS ORDERED: Diazepam 5 MG TAB PO PRN (04:00)
[2020-08-29 05:03] LABS: Anion Gap 16 mmol/L (10-20); BUN (Urea Nitrogen) 85 mg/dL (9.8-20.1); Calc. Creatinine Clearance 14 mL/min (70-130); Calcium 8.2 mg/dL (7.8-10.44); Carbon Dioxide 20 mmol/L (23-31); Chloride 103 mmol/L (98-107); Glucose 158 mg/dL (80-115); Sodium 135 mmol/L (136-145)
[2020-08-29 05:06] LABS: Eosinophils 8 % (0-10); Lymphocytes 19 % (21-51); MDiff Complete? YES; Mean Corpuscular Hemoglobin 34.5 pg (27.0-31.0); Mean Corpuscular Volume 98.4 fL (78.0-98.0); Mean Platelet Volume 7.2 fL (7.4-10.4); Monocytes 3 % (0-10); Neutrophil 69 % (42-75); Nucleated RBC 1 % (0); Platelet Count 65 thou/uL (130-400); Platelet Morphology Comment Appears Decreased; RBC Distribution Width 17.2 % (11.5-14.5); RBC Morphology Normal; Red Blood Cell (RBC) Count 2.32 mill/uL (4.20-5.40); White Blood Cell (WBC) Count 2.1 thou/uL (4.8-10.8)
--- NOTE | 2020-08-29 05:43 | PDOC.FM ---
- Subjective Subjective: Patient reports she feels well today. Denies headache, chest pain, SOB, nausea, abdominal pain and edema. Reports eating well this am. Is ready to go home. - Objective MAR Reviewed: Yes Vital Signs & Weight: Vital Signs (12 hours) Temp Pulse Pulse Resp BP BP BP 08/29/20 03:00 98.7 F 81 20 161/95 H 161/95 H 08/29/20 00:57 08/28/20 23:53 147/84 H 08/28/20 23:00 98.5 F 81 20 08/28/20 19:53 179/92 H 08/28/20 19:00 98.5 F 71 22 H 179/79 H 08/28/20 18:30 98.2 F 70 14 175/99 H BP Pulse Ox 08/29/20 03:00 96 08/29/20 00:57 92 L 08/28/20 23:53 08/28/20 23:00 147/89 H 92 L 08/28/20 19:53 08/28/20 19:00 97 08/28/20 18:30 95 Weight Weight 49.9 kg I&O: 08/27/20 08/28/20 08/29/20 06:59 06:59 06:59 Intake Total 2570 Output Total 350 Balance 2220 Result Diagrams: 08/29/20 04:17 08/29/20 04:17 Phys Exam - Physical Examination Constitutional: NAD Cachectic HEENT: moist MMs, sclera anicteric Neck: full ROM Respiratory: clear to auscultation bilateral Cardiovascular: RRR, no significant murmur Gastrointestinal: soft, non-tender, positive bowel sounds Musculoskeletal: no edema Neurological: non-focal Psychiatric: normal affect Skin: no rash Dx/Plan - Plan Plan: Hypoglycemia, resolved 2/2 ETOH Abuse with Severe Calorie Malnutrition Upon arrival BG 26, given 1 amp D50 in ED. Previous admissions for hypoglycemia with 06/09/2020 negative imaging for insulinoma. Hx normal insulin level and c- peptide, unlikely exogenous diabetic medication use. Previous episodes of hypoglycemia resolved with alcohol abstinence and adequate PO intake - BG 26 upon arrival with 1 amp D50 -> 104 -> 181 -> 145 - Continue vitamin supplementation - Encouraged continued PO intake Acute on chronic anemia with pancytopenia Asymptomatic. Hgb 6.8 on admission and received 1u pRBCs started in ED -> 8.1 -> 8.0. - continue folic acid, B12, thiamine Anion gap metabolic acidosis, improved Likely component of alcoholic ketoacidosis considering history, ketones present in UA -Albumin corrected anion gap 20.5, bicarb 12 on admission. Now albumin corrected anion gap 13.5 ETOH Abuse Drinks 4-5 mini bottles of gin a night, last drink 1/8 at night. S/p banana bag in ED. Lipase 119 - ASE protocol - Cessation counseling - Continue folic acid, B12 and thiamine Prolonged QT & VA interval - aware HORTENCIA, improved on CKD4 Cr 3.3, baseline 2.4, baseling GFRs 20s. Cr now 3.01. -Improving, monitor with am labs HFrEF Echo Apr 2020 EG 30-35% - monitor for signs of volume overload given fluids given on admission - strict I/Os HTN - Restart home meds Seizure Disorder - Continue home keppra Tobacco Use - cessation counseling Depression - Continue home meds DVT ppx: SCDs due to thrombocytopenia Diet: Regular PCP: DANNY Dispo: Discharge home today Addendum - Attending - Attending Attestation Date/Time: 08/29/201943 I personally evaluated the patient and discussed the management with Dr. Griffin I agree with the History, Examination, Assessment and Plan documented above with any addition or exceptions noted below.
[2020-08-29] MEDS ORDERED: hydrALAZINE 25 MG TAB PO SCH (06:00)
[2020-08-29 06:42] LABS: Syphilis Antibody Index 8.27 S/CO (<1.00 Non-Reactive)
[2020-08-29 07:23] LABS: Syphilis Antibody INDETERMINATE (Nonreactive)
[2020-08-29] MEDS ORDERED: Ferrous Sulfate 325 MG TAB PO SCH (08:00)
[2020-08-29] MEDS ORDERED: Sodium Bicarbonate Tab 325 MG TAB PO SCH (09:00)
[2020-08-29] MEDS ORDERED: Thiamine 100 MG TAB PO SCH (09:00)
[2020-08-29] MEDS ORDERED: Multivitamin W/ Minerals 1 TAB PO SCH (09:00)
[2020-08-29] MEDS ORDERED: Magnesium Oxide 400 MG TAB PO SCH (09:00)
[2020-08-29] MEDS ORDERED: Aspirin 81 mg Enteric Coated Tablet PO SCH (09:00)
[2020-08-29] MEDS ORDERED: Folic Acid 1 MG TAB PO SCH (09:00)
[2020-08-29] MEDS ORDERED: Cyanocobalamin (Vitamin B-12) 1,000 MCG TAB PO SCH (09:00)
[2020-08-29] MEDS: Isosorbide Dinitrate 20 MG TAB PO SCH (09:41)
[2020-08-29] MEDS: Carvedilol 25 MG TAB PO SCH (09:41)
[2020-08-29] MEDS: levETIRAcetam 500 MG TAB PO SCH (09:42)
[2020-08-29 12:04] VITALS: BP 167/96; TEMP 97.8
--- NOTE | 2020-08-29 16:01 | DIS ---
DATE OF ADMISSION: 08/28/2020 DATE OF DISCHARGE: 08/29/2020 RESIDENT: Ava Griffin MD ADMITTING ATTENDING: Chucky Urbina MD DISCHARGE ATTENDING: Chucky Urbina MD CONSULTS: None. PROCEDURES: None. PRIMARY DIAGNOSES: Hypoglycemia, resolved secondary to EtOH abuse and severe calorie malnutrition. Anion gap metabolic acidosis 2/2 alcoholic ketoacidosis. HORTENCIA on CKD4. SECONDARY DIAGNOSES: Chronic anemia with pancytopenia, EtOH abuse, prolonged QT and VT interval, heart failure with reduced ejection fraction, hypertension, seizure disorder, tobacco use, depression. DISCHARGE MEDICATIONS: 1. Hydralazine 25 mg p.o. q.8 hours. 2. B12 100 mcg p.o. daily. 3. Sodium bicarb 650 mg p.o. daily. 4. Carvedilol 25 mg p.o. b.i.d. 5. Folic acid 1 mg p.o. daily. 6. Keppra 500 mg p.o. b.i.d. 7. Protonix 40 mg p.o. daily. 8. Sertraline 50 mg p.o. daily. 9. Ferrous sulfate 325 mg p.o. q.a.m. 10. Isosorbide dinitrate 20 mg p.o. t.i.d. 11. Multivitamin one tablet p.o. daily. 12. Thiamine 100 mg p.o. daily. Discontinued medications, none. HISTORY OF PRESENT ILLNESS: The patient is a 70-year-old female with a history of EtOH abuse and cachexia secondary to chronic malnutrition, who presented to the ED with weakness, nausea, and vomiting since that morning. Upon arrival, she was found to have a glucose of 26 and was given one amp of D10 with improvement of glucose to 97. The patient reported poor p.o. intake for multiple days prior to arrival. Hemoglobin was 6.8 upon arrival to the ED. The patient received 1 unit of packed red blood cells with improvement of hemoglobin to 8.1 four hours post transfusion and 8.0 the next morning. Blood glucoses trended every 4 hours and improved to 145, then 189, and 185. The patient reported resolution of nausea and vomiting and stated she was tolerating p.o. well. She was deemed stable for discharge home on 08/29/2020. She will follow up with Dr. Leon Thapa at [facility]. DISPOSITION: Stable. DISCHARGE INSTRUCTIONS: 1. Location: Home. 2. Diet: Heart healthy. 3. Activity: As tolerated. 4. Follow up: Follow up with Dr. Leon Thapa at [facility] within one week. Job ID: [id number] [id number]
== END 2020-08-29 14:42 | disposition home or self-care (01) ==
LOC: ERS 11:15 → INTOOBSV 13:20 → 2NO 13:20
PROVIDERS: ADMIT Family Medicine; ATTEND Family Medicine
DX: E16.2 Hypoglycemia, unspecified (principal); F10.10 Alcohol abuse, uncomplicated; E43 Unspecified severe protein-calorie malnutrition; R64 Cachexia; E87.2 Acidosis; I13.0 Hypertensive heart and chronic kidney disease with heart failure and stage 1 through stage 4 chronic kidney disease, or unspecified chronic kidney disease; N18.4 Chronic kidney disease, stage 4 (severe); I50.20 Unspecified systolic (congestive) heart failure; D63.1 Anemia in chronic kidney disease; N17.9 Acute kidney failure, unspecified; G43.909 Migraine, unspecified, not intractable, without status migrainosus; R94.31 Abnormal electrocardiogram [ECG] [EKG]; F32.9 Major depressive disorder, single episode, unspecified; D61.818 Other pancytopenia; F17.210 Nicotine dependence, cigarettes, uncomplicated; Z68.1 Body mass index [BMI] 19.9 or less, adult; Z79.899 Other long term (current) drug therapy; Z91.041 Radiographic dye allergy status; Z96.642 Presence of left artificial hip joint; Z20.822 Contact with and (suspected) exposure to COVID-19
CPT/HCPCS: 36430; 71045; 80048; 80053; 80306; 80307; 82248; 82550; 82553; 82962 ×2; 83690; 83735; 83880; 84484 ×2; 85007; 85014; 85018; 85025; 85027; 85610; 85730; 86593; 86780; 86850; 86900; 86901; 86920; 93005; P9016; U0003; 36415; 36416; 51701; 81003; 81015; 87635; 96365; 96375; G0378; J3411; J3475; J3490; J7042

== ENCOUNTER 2020-09-23 11:54 | Emergency (ER) | payer MEDICARE, SELFPAY ==
[2020-09-23 13:14] LABS: #Eosinphils 0.1 thou/uL (0.0-0.7); #Lymphocytes 0.7 thou/uL (1.20-3.40); #Monocytes 0.2 thou/uL (0.11-0.59); #Neutrophils 1.5 thou/uL (1.40-6.50); %Basophils 0.2 % (0.0-1.0); %Eosinophils 2.2 % (0.0-10.0); %Lymphocytes 27.2 % (21.0-51.0); %Monocytes 6.3 % (0.0-10.0); Hemoglobin 7.6 g/dL (12.0-16.0); Mean Corpuscular HGB CONC 34.5 g/dL (32.0-36.0); Mean Corpuscular Hemoglobin 34.7 pg (27.0-31.0); Mean Platelet Volume 6.8 fL (7.4-10.4); Platelet Count 219 thou/uL (130-400); Red Blood Cell (RBC) Count 2.18 mill/uL (4.20-5.40); White Blood Cell (WBC) Count 2.4 thou/uL (4.8-10.8)
[2020-09-23 13:34] LABS: ALT (SGPT) 12 U/L (8-55); AST (SGOT) 31 U/L (5-34); Albumin 3.8 g/dL (3.4-4.8); Alkaline Phosphatase 125 U/L (40-110); Anion Gap 17 mmol/L (10-20); BUN (Urea Nitrogen) 90 mg/dL (9.8-20.1); Bilirubin, Total 0.2 mg/dL (0.2-1.2); Calc. Creatinine Clearance 0 mL/min (70-130); Calcium 9.2 mg/dL (7.8-10.44); Carbon Dioxide 17 mmol/L (23-31); Chloride 109 mmol/L (98-107); Globulin 3.5 g/dL (2.4-3.5); Glucose 103 mg/dL (80-115); Potassium 4.1 mmol/L (3.5-5.1); Protein, Total 7.3 g/dL (5.8-8.1); Sodium 139 mmol/L (136-145)
[2020-09-23 14:06] LABS: Bacteria/HPF 3+ HPF (None Seen); Bilirubin Negative (Negative); Blood, Urine Negative (Negative); Clarity Clear (Clear); Glucose, Urine (Dipstick) Normal (Negative); Ketone, Urine Negative (Negative); Leukocyte 500 Leu/uL (Negative); Nitrite Negative (Negative); Protein, Urine (Dipstick) 10 mg/dL (Neg-Trace); RBC/HPF 0-3 HPF (0-3); Specific Gravity, Urine 1.013 (1.002-1.036); Squamous Epithelial 0-3 HPF (0-3); Urobilinogen Normal mg/dL (Less than 2); WBC/HPF Greater than 50 HPF (0-3); pH, Urine 5.5 (5.0-9.0)
== END 2020-09-23 16:20 | disposition home or self-care (01) ==
LOC: ERS 11:54
DX: N39.0 Urinary tract infection, site not specified (principal); M62.81 Muscle weakness (generalized); F17.210 Nicotine dependence, cigarettes, uncomplicated; I11.9 Hypertensive heart disease without heart failure; I43 Cardiomyopathy in diseases classified elsewhere; D64.9 Anemia, unspecified; Z79.899 Other long term (current) drug therapy
CPT/HCPCS: 36415; 51701; 80053; 81003; 81015; 83605; 85025; 86850; 86900; 86901; 87040; 87077; 87086; 87186

== ENCOUNTER 2020-11-27 14:37 | Observation (INO) | payer MEDICARE ==
[2020-11-27 15:27] LABS: #Lymphocytes 0.6 thou/uL (1.20-3.40); #Monocytes 0.2 thou/uL (0.11-0.59); #Neutrophils 1.3 thou/uL (1.40-6.50); %Basophils 0.6 % (0.0-1.0); %Eosinophils 1.4 % (0.0-10.0); %Lymphocytes 29.9 % (21.0-51.0); %Monocytes 8.2 % (0.0-10.0); %Neutrophils 59.9 % (42.0-75.0); Hemoglobin 5.7 g/dL (12.0-16.0); Mean Corpuscular HGB CONC 33.6 g/dL (32.0-36.0); Mean Platelet Volume 6.9 fL (7.4-10.4); Platelet Count 172 thou/uL (130-400); RBC Distribution Width 14.7 % (11.5-14.5); Red Blood Cell (RBC) Count 1.43 mill/uL (4.20-5.40); White Blood Cell (WBC) Count 2.1 thou/uL (4.8-10.8)
[2020-11-27 15:41] LABS: MDiff Complete? YES; Macrocytosis SLIGHT = 6-15 cells (100X) (0-5/hpf); Platelet Morphology Comment Appears Adequate; Polychromasia MODERATE = 3-4 cells (100X) (0-2/hpf); Target Cells SLIGHT = 2-5 cells (100X) (0-1/hpf); Tear Drops SLIGHT = 2-5 cells (100X) (0-1/hpf)
[2020-11-27 15:44] LABS: ALT (SGPT) Less than 7 U/L (8-55); AST (SGOT) 15 U/L (5-34); Alkaline Phosphatase 89 U/L (40-110); Anion Gap 17 mmol/L (10-20); BUN (Urea Nitrogen) 61 mg/dL (9.8-20.1); Bilirubin, Total 0.3 mg/dL (0.2-1.2); Calc. Creatinine Clearance 0 mL/min (70-130); Calcium 7.9 mg/dL (7.8-10.44); Carbon Dioxide 16 mmol/L (23-31); Chloride 112 mmol/L (98-107); Globulin 2.6 g/dL (2.4-3.5); Glucose 118 mg/dL (80-115); Potassium 4.2 mmol/L (3.5-5.1); Protein, Total 5.6 g/dL (5.8-8.1); Sodium 141 mmol/L (136-145)
[2020-11-27 16:09] LABS: PTT 34.3 sec (22.9-36.1); Prothrombin Time 13.1 sec (12.0-14.7)
[2020-11-27 17:02] LABS: Reticulocyte Count 12.8 % (0.5-1.5)
[2020-11-27 17:22] LABS: Iron 80 ug/dL (50-170); Iron Binding Capacity, Total 160 mcg/dL (265-497)
[2020-11-27 17:47] LABS: Ferritin 259.8 ng/mL (10-291)
[2020-11-27] MEDS: Carvedilol 25 MG TAB PO SCH (21:54)
[2020-11-27] MEDS: levETIRAcetam 500 MG TAB PO SCH (21:54)
[2020-11-28 03:01] VITALS: BMI 13.4
[2020-11-28 07:20] LABS: Hemoglobin 9.6 g/dL (12.0-16.0)
[2020-11-28] MEDS ORDERED: Ferrous Sulfate 325 MG TAB PO SCH (08:00)
[2020-11-28 08:24] VITALS: BP 163/96; TEMP 98.9
[2020-11-28] MEDS: levETIRAcetam 500 MG TAB PO SCH (08:34)
[2020-11-28] MEDS: Carvedilol 25 MG TAB PO SCH (08:35)
[2020-11-28 08:48] LABS: SARS-CoV-2 PCR by NAA Not Detected (NotDetected)
[2020-11-28] MEDS ORDERED: Sodium Bicarbonate Tab 325 MG TAB PO SCH (09:00)
[2020-11-28] MEDS ORDERED: (Mecobalamin [B12 Active] 1,000 MCG Tab.Chew) PO SCH (09:00)
[2020-11-28] MEDS ORDERED: Multivitamin W/ Minerals 1 TAB PO SCH (09:00)
[2020-11-28] MEDS ORDERED: Thiamine 100 MG TAB PO SCH (09:00)
[2020-11-28] MEDS ORDERED: Folic Acid 1 MG TAB PO SCH (09:00)
== END 2020-11-28 11:31 | disposition home or self-care (01) ==
LOC: ERS 14:37 → T4-A 17:19
PROVIDERS: ADMIT Family Medicine; ATTEND Family Medicine
DX: I13.0 Hypertensive heart and chronic kidney disease with heart failure and stage 1 through stage 4 chronic kidney disease, or unspecified chronic kidney disease (principal); N18.4 Chronic kidney disease, stage 4 (severe); I50.20 Unspecified systolic (congestive) heart failure; D63.1 Anemia in chronic kidney disease; Z79.899 Other long term (current) drug therapy; Z91.041 Radiographic dye allergy status; Z96.642 Presence of left artificial hip joint; Z20.822 Contact with and (suspected) exposure to COVID-19
CPT/HCPCS: 36430; 71045; 80053; 82607; 82728; 82746; 83010; 83540; 83550; 85014; 85018; 85025; 85046; 85610; 85730; 86850; 86900; 86901; 86920; 99291; G0378 ×3; P9016; U0003; U0005; 36415; 87635

== ENCOUNTER 2021-06-08 13:29 | Inpatient (IN) | payer MEDICARE ==
[2021-06-08] MEDS ORDERED: Dextrose 50% Abboject 50 ML SYRINGE ONE (13:48)
[2021-06-08] MEDS ORDERED: Aspirin 325 MG TAB ONE (14:07)
[2021-06-08] MEDS ORDERED: Magnesium 2 GM/50 ML BAG (IN WATER) ONE (14:07)
[2021-06-08] MEDS ORDERED: Multivitamins, Adult 10 ML, Thiamine HCl 100 MG, Folic Acid 1 MG in Dextrose 5 %-0.45 %... IV SCH (14:15)
[2021-06-08 14:31] LABS: #Eosinphils 0.1 thou/uL (0.0-0.7); #Lymphocytes 0.4 thou/uL (1.20-3.40); #Monocytes 0.2 thou/uL (0.11-0.59); #Neutrophils 1.2 thou/uL (1.40-6.50); %Eosinophils 4.2 % (0.0-10.0); %Lymphocytes 21.8 % (21.0-51.0); %Monocytes 11.5 % (0.0-10.0); %Neutrophils 62.6 % (42.0-75.0); Hemoglobin 4.5 g/dL (12.0-16.0); Mean Corpuscular HGB CONC 32.3 g/dL (32.0-36.0); Mean Corpuscular Hemoglobin 37.5 pg (27.0-31.0); Mean Platelet Volume 8.5 fL (7.4-10.4); Platelet Count 28 thou/uL (130-400); RBC Distribution Width 15.4 % (11.5-14.5); Red Blood Cell (RBC) Count 1.21 mill/uL (4.20-5.40); White Blood Cell (WBC) Count 1.9 thou/uL (4.8-10.8)
[2021-06-08 14:53] LABS: ALT (SGPT) 18 U/L (8-55); AST (SGOT) 26 U/L (5-34); Albumin 2.1 g/dL (3.4-4.8); Alkaline Phosphatase 97 U/L (40-110); BUN (Urea Nitrogen) 34 mg/dL (9.8-20.1); Bilirubin, Total 0.7 mg/dL (0.2-1.2); Calc. Creatinine Clearance 0 mL/min (70-130); Calcium 7.2 mg/dL (7.8-10.44); Chloride 114 mmol/L (98-107); Globulin 2.5 g/dL (2.4-3.5); Glucose 224 mg/dL (80-115); Lipase 54 U/L (8-78); Magnesium 1.1 mg/dL (1.6-2.6); Protein, Total 4.6 g/dL (5.8-8.1); Sodium 146 mmol/L (136-145)
[2021-06-08 15:00] LABS: Carbon Dioxide Less than 8 mmol/L (23-31)
[2021-06-08 15:13] LABS: CKMB 2.9 ng/mL (0-6.6)
[2021-06-08 15:17] LABS: INR-International Normal Ratio 1.3; PTT 46.8 sec (22.9-36.1); Prothrombin Time 16.4 sec (12.0-14.7)
[2021-06-08] MEDS ORDERED: D5 1/2 NS w/40 mEq KCL 1,000 ML IV SCH (16:00)
[2021-06-08 16:41] LABS: Amphetamine Not Detected (NotDetected); Barbiturates Screen Not Detected (NotDetected); Benzodiazepine Screen Not Detected (NotDetected); Cocaine Metabolite Screen Not Detected (NotDetected); Methadone Not Detected (NotDetected); Methamphetamine Not Detected (NotDetected); Opiate Screen Not Detected (NotDetected); Oxycodone Screen Not Detected (NotDetected); Phencyclidine (PCP) Not Detected (NotDetected); THC/Cannabinoid Screen Not Detected (NotDetected); Tricyclic Screen Not Detected (NotDetected)
[2021-06-08 16:42] LABS: Bilirubin Negative (Negative); Blood, Urine Trace (Negative); Clarity Clear (Clear); Glucose, Urine (Dipstick) Normal (Negative); Ketone, Urine 20 mg/dL (Negative); Leukocyte Negative Leu/uL (Negative); Nitrite Negative (Negative); Protein, Urine (Dipstick) 50 mg/dL (Neg-Trace); RBC/HPF None Seen HPF (0-3); Specific Gravity, Urine 1.011 (1.002-1.036); Squamous Epithelial 0-3 HPF (0-3); Urobilinogen Normal mg/dL (Less than 2); WBC/HPF 0-3 HPF (0-3); pH, Urine 5.5 (5.0-9.0)
[2021-06-08 16:43] LABS: Bacteria/HPF 1+ HPF (None Seen)
[2021-06-08] MEDS ORDERED: Calcium Carbonate 500 MG ChewTAB PO PRN (17:15)
[2021-06-08] MEDS ORDERED: Lorazepam 2 MG/ML VIAL SLOW IVP PRN (17:26)
[2021-06-08 17:34] LABS: SARS-CoV-2 NAA Rapid Test Not Detected (NotDetected)
[2021-06-08] MEDS ORDERED: Electrolyte Replacement Protocol 1 EACH FS SCH (18:53)
[2021-06-08] MEDS ORDERED: Diazepam 10 MG/2 ML SYRINGE IVP SCH (19:00)
[2021-06-08] MEDS ORDERED: Diazepam 10 MG/2 ML SYRINGE ONE (19:44)
[2021-06-08] MEDS ORDERED: Nicotine 14 MG PATCH ONE (19:45)
[2021-06-08 20:33] LABS: Anion Gap 18 mmol/L (10-20); BUN (Urea Nitrogen) 28 mg/dL (9.8-20.1); Calc. Creatinine Clearance 0 mL/min (70-130); Calcium 7.1 mg/dL (7.8-10.44); Carbon Dioxide 10 mmol/L (23-31); Chloride 113 mmol/L (98-107); Sodium 138 mmol/L (136-145)
[2021-06-08 20:39] LABS: Glucose 583 mg/dL (80-115); Potassium 2.6 mmol/L (3.5-5.1); Troponin I 0.154 ng/mL (< 0.028)
[2021-06-08] MEDS ORDERED: Potassium Chloride 20 MEQ in Premix Bag 1 BAG IVPB SCH (21:00)
[2021-06-08] MEDS: Nicotine 14 MG PATCH TD SCH (21:26)
[2021-06-08 22:03] LABS: Phosphorus 1.2 mg/dL (2.3-4.7)
[2021-06-08] MEDS ORDERED: Potassium Phosphate 22 MMOL in Sodium Chloride 0.9% 250 ML 250 ML IVPB SCH (22:30)
[2021-06-08] MEDS ORDERED: Furosemide 40 MG/4 ML VIAL SLOW IVP SCH (23:00)
[2021-06-09 00:52] VITALS: BMI 14.5
[2021-06-09] MEDS ORDERED: FLU VACC QS2021-22(65YR UP)/PF 240 MCG/0.7 ML SYRINGE IM ONE (01:00)
[2021-06-09 02:12] LABS: Anion Gap 16 mmol/L (10-20); BUN (Urea Nitrogen) 28 mg/dL (9.8-20.1); Calc. Creatinine Clearance 14 mL/min (70-130); Calcium 7.2 mg/dL (7.8-10.44); Carbon Dioxide 11 mmol/L (23-31); Chloride 114 mmol/L (98-107); Glucose 529 mg/dL (80-115); Magnesium 1.6 mg/dL (1.6-2.6); Sodium 138 mmol/L (136-145)
[2021-06-09 02:30] LABS: Potassium 2.9 mmol/L (3.5-5.1)
[2021-06-09] MEDS ORDERED: Magnesium 2 GM/50 ML 2 GM in Premix Bag 1 BAG IVPB SCH (02:30)
[2021-06-09] MEDS: Potassium Chloride 40 MEQ in Sodium Chloride 0.9% 250 ML 250 ML IVPB SCH ×2 (02:53→10:22)
[2021-06-09 04:14] LABS: INR-International Normal Ratio 1.1; PTT 43.4 sec (22.9-36.1); Prothrombin Time 13.9 sec (12.0-14.7)
[2021-06-09 04:24] LABS: Phosphorus 2.3 mg/dL (2.3-4.7)
[2021-06-09 04:25] LABS: Anion Gap 16 mmol/L (10-20); BUN (Urea Nitrogen) 28 mg/dL (9.8-20.1); Calc. Creatinine Clearance 14 mL/min (70-130); Calcium 7.2 mg/dL (7.8-10.44); Carbon Dioxide 12 mmol/L (23-31); Chloride 114 mmol/L (98-107); Glucose 494 mg/dL (80-115); Magnesium 2.3 mg/dL (1.6-2.6); Potassium 3.1 mmol/L (3.5-5.1); Sodium 139 mmol/L (136-145)
[2021-06-09 04:32] LABS: #Eosinphils 0.1 thou/uL (0.0-0.7); #Lymphocytes 0.3 thou/uL (1.20-3.40); #Monocytes 0.3 thou/uL (0.11-0.59); #Neutrophils 1.7 thou/uL (1.40-6.50); %Eosinophils 2.8 % (0.0-10.0); %Monocytes 14.2 % (0.0-10.0); Mean Corpuscular HGB CONC 33.9 g/dL (32.0-36.0); Mean Corpuscular Hemoglobin 32.6 pg (27.0-31.0); Mean Corpuscular Volume 96.3 fL (78.0-98.0); Mean Platelet Volume 8.3 fL (7.4-10.4); Platelet Count 141 thou/uL (130-400); RBC Distribution Width 17.8 % (11.5-14.5); Red Blood Cell (RBC) Count 3.36 mill/uL (4.20-5.40); White Blood Cell (WBC) Count 2.4 thou/uL (4.8-10.8)
[2021-06-09] MEDS ORDERED: Mecobalamin [B12 Active] 1,000 MCG Tab.Chew PO SCH (09:00)
[2021-06-09] MEDS: Potassium Chloride 20 MEQ TAB PO SCH ×2 (10:22→17:00)
[2021-06-09] MEDS: levETIRAcetam 500 MG TAB PO SCH ×2 (10:22→21:05)
[2021-06-09] MEDS: Folic Acid 1 MG TAB PO SCH (10:23)
[2021-06-09] MEDS: Magnesium Oxide 400 MG TAB PO SCH (10:23)
[2021-06-09] MEDS: Sodium Bicarbonate Tab 325 MG TAB PO SCH (10:23)
[2021-06-09] MEDS: Multivitamin W/ Minerals 1 TAB PO SCH (10:23)
[2021-06-09] MEDS: Carvedilol 25 MG TAB PO SCH ×2 (10:23→21:05)
[2021-06-09] MEDS: Nicotine 14 MG PATCH TD SCH (17:06)
[2021-06-09] MEDS: Vancomycin HCl 25 MG/ML Oral PO SCH (21:04)
[2021-06-09 23:40] LABS: Hemoglobin A1c 4.4 % (4.0-6.0)
[2021-06-10] MEDS: Vancomycin HCl 25 MG/ML Oral PO SCH ×4 (02:23→21:17)
[2021-06-10 05:32] LABS: Anion Gap 13 mmol/L (10-20); BUN (Urea Nitrogen) 37 mg/dL (9.8-20.1); Calc. Creatinine Clearance 13 mL/min (70-130); Calcium 7.6 mg/dL (7.8-10.44); Carbon Dioxide 14 mmol/L (23-31); Chloride 123 mmol/L (98-107); Glucose 230 mg/dL (80-115); Phosphorus 1.2 mg/dL (2.3-4.7); Potassium 4.7 mmol/L (3.5-5.1); Sodium 145 mmol/L (136-145)
[2021-06-10] MEDS ORDERED: PHOS-NAK 1 PKT PACK PO SCH (06:30)
[2021-06-10 07:07] LABS: #Lymphocytes 0.7 thou/uL (1.20-3.40); #Monocytes 0.5 thou/uL (0.11-0.59); #Neutrophils 2.4 thou/uL (1.40-6.50); %Basophils 0.6 % (0.0-1.0); %Eosinophils 1.1 % (0.0-10.0); %Lymphocytes 20.1 % (21.0-51.0); %Monocytes 13.1 % (0.0-10.0); %Neutrophils 65.1 % (42.0-75.0); Anisocytosis MODERATE=16-30 cells (100X) (0-5/hpf); Elliptocytes SLIGHT = 2-5 cells (100X) (0-1/hpf); Hemoglobin 11.1 g/dL (12.0-16.0); MDiff Complete? YES; Mean Corpuscular HGB CONC 33.8 g/dL (32.0-36.0); Mean Corpuscular Hemoglobin 33.9 pg (27.0-31.0); Mean Platelet Volume 8.8 fL (7.4-10.4); Platelet Count 91 thou/uL (130-400); Platelet Morphology Comment Appears Decreased; RBC Distribution Width 18.4 % (11.5-14.5); Red Blood Cell (RBC) Count 3.27 mill/uL (4.20-5.40); White Blood Cell (WBC) Count 3.7 thou/uL (4.8-10.8)
[2021-06-10] MEDS ORDERED: Famotidine 20 MG TAB PO SCH (10:15)
[2021-06-10] MEDS: Magnesium Oxide 400 MG TAB PO SCH (10:20)
[2021-06-10] MEDS: Carvedilol 25 MG TAB PO SCH ×2 (10:20→21:17)
[2021-06-10] MEDS: Sodium Bicarbonate Tab 325 MG TAB PO SCH (10:20)
[2021-06-10] MEDS: Potassium Chloride 20 MEQ TAB PO SCH ×2 (10:21→17:20)
[2021-06-10] MEDS: Multivitamin W/ Minerals 1 TAB PO SCH (10:22)
[2021-06-10] MEDS: Folic Acid 1 MG TAB PO SCH (10:22)
[2021-06-10] MEDS: Enoxaparin Sodium 30 MG/0.3 ML SYRINGE SC SCH (12:30)
[2021-06-10] MEDS: Nicotine 14 MG PATCH TD SCH (17:20)
[2021-06-11] MEDS: Vancomycin HCl 25 MG/ML Oral PO SCH ×4 (01:41→21:03)
[2021-06-11] MEDS: levETIRAcetam 500 MG TAB PO SCH ×2 (06:44→09:09)
[2021-06-11] MEDS: Ergocalciferol 1.25 MG(50,000 UNITS) CAP PO SCH (06:44)
[2021-06-11 08:54] LABS: Anion Gap 14 mmol/L (10-20); BUN (Urea Nitrogen) 36 mg/dL (9.8-20.1); Calc. Creatinine Clearance 14 mL/min (70-130); Calcium 8.5 mg/dL (7.8-10.44); Carbon Dioxide 12 mmol/L (23-31); Chloride 127 mmol/L (98-107); Glucose 130 mg/dL (80-115); Phosphorus 1.6 mg/dL (2.3-4.7); Potassium 5.5 mmol/L (3.5-5.1); Sodium 147 mmol/L (136-145)
[2021-06-11] MEDS ORDERED: Famotidine 20 MG TAB PO SCH (09:00)
[2021-06-11] MEDS: Multivitamin W/ Minerals 1 TAB PO SCH (09:07)
[2021-06-11] MEDS: Enoxaparin Sodium 30 MG/0.3 ML SYRINGE SC SCH (09:07)
[2021-06-11] MEDS: Carvedilol 25 MG TAB PO SCH ×2 (09:08→21:03)
[2021-06-11] MEDS: Magnesium Oxide 400 MG TAB PO SCH (09:08)
[2021-06-11] MEDS: Cholecalciferol 1,000 UNITS (25 MCG) TAB PO SCH (09:08)
[2021-06-11] MEDS: Folic Acid 1 MG TAB PO SCH (09:09)
[2021-06-11] MEDS: Sodium Bicarbonate Tab 325 MG TAB PO SCH (09:10)
[2021-06-11] MEDS: Potassium Chloride 20 MEQ TAB PO SCH (09:10)
[2021-06-11] MEDS ORDERED: Lactated Ringer's 500 ML IV SCH ×2 (09:15→10:15)
[2021-06-11 11:41] LABS: #Lymphocytes 0.5 thou/uL (1.20-3.40); #Monocytes 0.2 thou/uL (0.11-0.59); #Neutrophils 1.7 thou/uL (1.40-6.50); %Basophils 0.3 % (0.0-1.0); %Lymphocytes 21.5 % (21.0-51.0); %Monocytes 7.8 % (0.0-10.0); %Neutrophils 69.4 % (42.0-75.0); Anisocytosis SLIGHT = 6-15 cells (100X) (0-5/hpf); Hemoglobin 9.9 g/dL (12.0-16.0); MDiff Complete? YES; Mean Corpuscular Hemoglobin 34.1 pg (27.0-31.0); Mean Platelet Volume 9.4 fL (7.4-10.4); Platelet Count 67 thou/uL (130-400); Platelet Morphology Comment Appears Decreased; Poikilocytosis SLIGHT = 6-15 cells (100X) (0-5/hpf); RBC Distribution Width 17.9 % (11.5-14.5); Red Blood Cell (RBC) Count 2.92 mill/uL (4.20-5.40); Target Cells SLIGHT = 2-5 cells (100X) (0-1/hpf); White Blood Cell (WBC) Count 2.5 thou/uL (4.8-10.8)
[2021-06-11] MEDS: Nicotine 14 MG PATCH TD SCH (18:30)
[2021-06-12] MEDS: Vancomycin HCl 25 MG/ML Oral PO SCH ×4 (02:46→22:37)
[2021-06-12 06:01] LABS: Anion Gap 12 mmol/L (10-20); BUN (Urea Nitrogen) 41 mg/dL (9.8-20.1); Calc. Creatinine Clearance 14 mL/min (70-130); Calcium 8.5 mg/dL (7.8-10.44); Carbon Dioxide 14 mmol/L (23-31); Chloride 125 mmol/L (98-107); Glucose 111 mg/dL (80-115); Potassium 5.3 mmol/L (3.5-5.1); Sodium 146 mmol/L (136-145)
[2021-06-12 06:54] LABS: Hemoglobin 9.7 g/dL (12.0-16.0); Mean Corpuscular HGB CONC 33.2 g/dL (32.0-36.0); Mean Corpuscular Hemoglobin 34.1 pg (27.0-31.0); Mean Platelet Volume 9.3 fL (7.4-10.4); Platelet Count 59 thou/uL (130-400); RBC Distribution Width 17.5 % (11.5-14.5); Red Blood Cell (RBC) Count 2.85 mill/uL (4.20-5.40); White Blood Cell (WBC) Count 2.4 thou/uL (4.8-10.8)
[2021-06-12 06:55] LABS: Anisocytosis SLIGHT = 6-15 cells (100X) (0-5/hpf); Band 8 % (5-11); Crenated RBC SLIGHT = 1-5 cells (100X) (None Seen); Elliptocytes SLIGHT = 2-5 cells (100X) (0-1/hpf); Lymphocytes 22 % (21-51); MDiff Complete? YES; Monocytes 1 % (0-10); Neutrophil 69 % (42-75); Nucleated RBC 1 % (0); Platelet Morphology Comment Appears Decreased
[2021-06-12] MEDS: Magnesium Oxide 400 MG TAB PO SCH (09:09)
[2021-06-12] MEDS: Multivitamin W/ Minerals 1 TAB PO SCH (09:09)
[2021-06-12] MEDS: Carvedilol 25 MG TAB PO SCH ×2 (09:09→22:36)
[2021-06-12] MEDS: Folic Acid 1 MG TAB PO SCH (09:09)
[2021-06-12] MEDS: Cholecalciferol 1,000 UNITS (25 MCG) TAB PO SCH (09:09)
[2021-06-12] MEDS: levETIRAcetam 500 MG TAB PO SCH (09:09)
[2021-06-12] MEDS ORDERED: Dextrose 50% Abboject 50 ML SYRINGE SLOW IVP PRN (11:30)
[2021-06-12] MEDS ORDERED: Dextrose 5% in Water 1,000 ML IV PRN (11:30)
[2021-06-12] MEDS: Nicotine 14 MG PATCH TD SCH (17:56)
[2021-06-13] MEDS: Vancomycin HCl 25 MG/ML Oral PO SCH ×4 (02:02→21:59)
[2021-06-13 05:22] LABS: #Eosinphils 0.1 thou/uL (0.0-0.7); #Lymphocytes 0.6 thou/uL (1.20-3.40); #Monocytes 0.3 thou/uL (0.11-0.59); #Neutrophils 2.1 thou/uL (1.40-6.50); %Basophils 0.5 % (0.0-1.0); %Eosinophils 1.8 % (0.0-10.0); %Lymphocytes 19.2 % (21.0-51.0); %Monocytes 9.4 % (0.0-10.0); %Neutrophils 69.1 % (42.0-75.0); Hemoglobin 9.5 g/dL (12.0-16.0); Mean Corpuscular HGB CONC 33.7 g/dL (32.0-36.0); Mean Corpuscular Hemoglobin 34.1 pg (27.0-31.0); Mean Platelet Volume 10.1 fL (7.4-10.4); Platelet Count 54 thou/uL (130-400); RBC Distribution Width 17.1 % (11.5-14.5); Red Blood Cell (RBC) Count 2.78 mill/uL (4.20-5.40)
[2021-06-13 06:20] LABS: Anion Gap 12 mmol/L (10-20); BUN (Urea Nitrogen) 42 mg/dL (9.8-20.1); Calc. Creatinine Clearance 13 mL/min (70-130); Calcium 8.6 mg/dL (7.8-10.44); Carbon Dioxide 14 mmol/L (23-31); Chloride 123 mmol/L (98-107); Glucose 103 mg/dL (80-115); Magnesium 1.9 mg/dL (1.6-2.6); Phosphorus 2.5 mg/dL (2.3-4.7); Potassium 5.3 mmol/L (3.5-5.1); Sodium 144 mmol/L (136-145)
[2021-06-13] MEDS: Cholecalciferol 1,000 UNITS (25 MCG) TAB PO SCH (09:15)
[2021-06-13] MEDS: Magnesium Oxide 400 MG TAB PO SCH (09:15)
[2021-06-13] MEDS: Folic Acid 1 MG TAB PO SCH (09:15)
[2021-06-13] MEDS: levETIRAcetam 500 MG TAB PO SCH (09:15)
[2021-06-13] MEDS: Multivitamin W/ Minerals 1 TAB PO SCH (09:15)
[2021-06-13] MEDS: Carvedilol 25 MG TAB PO SCH ×2 (09:15→21:59)
[2021-06-13] MEDS: Nicotine 14 MG PATCH TD SCH (18:11)
[2021-06-14] MEDS: Vancomycin HCl 25 MG/ML Oral PO SCH ×4 (03:24→20:55)
[2021-06-14] MEDS: Carvedilol 25 MG TAB PO SCH ×2 (07:56→20:55)
[2021-06-14] MEDS: Cholecalciferol 1,000 UNITS (25 MCG) TAB PO SCH (07:57)
[2021-06-14] MEDS: Multivitamin W/ Minerals 1 TAB PO SCH (07:58)
[2021-06-14] MEDS: Magnesium Oxide 400 MG TAB PO SCH (07:58)
[2021-06-14] MEDS: levETIRAcetam 500 MG TAB PO SCH (07:58)
[2021-06-14] MEDS: Folic Acid 1 MG TAB PO SCH (07:58)
[2021-06-14 09:21] LABS: Hemoglobin 9.4 g/dL (12.0-16.0); Mean Corpuscular HGB CONC 33.1 g/dL (32.0-36.0); Mean Corpuscular Hemoglobin 33.5 pg (27.0-31.0); Mean Platelet Volume 9.8 fL (7.4-10.4); Platelet Count 67 thou/uL (130-400); RBC Distribution Width 16.6 % (11.5-14.5); Red Blood Cell (RBC) Count 2.82 mill/uL (4.20-5.40); White Blood Cell (WBC) Count 2.7 thou/uL (4.8-10.8)
[2021-06-14 09:34] LABS: Anion Gap 11 mmol/L (10-20); BUN (Urea Nitrogen) 45 mg/dL (9.8-20.1); Calc. Creatinine Clearance 13 mL/min (70-130); Calcium 8.4 mg/dL (7.8-10.44); Carbon Dioxide 15 mmol/L (23-31); Chloride 122 mmol/L (98-107); Glucose 97 mg/dL (80-115); Magnesium 1.8 mg/dL (1.6-2.6); Phosphorus 2.9 mg/dL (2.3-4.7); Potassium 4.9 mmol/L (3.5-5.1); Sodium 143 mmol/L (136-145)
[2021-06-14 10:13] LABS: #Lymphocytes 0.6 thou/uL (1.20-3.40); #Monocytes 0.4 thou/uL (0.11-0.59); #Neutrophils 1.8 thou/uL (1.40-6.50); %Basophils 0.2 % (0.0-1.0); %Eosinophils 1.1 % (0.0-10.0); %Lymphocytes 20.8 % (21.0-51.0); %Neutrophils 64.9 % (42.0-75.0); Band 10 % (5-11); Burr Cells SLIGHT = 2-5 cells (100X) (0-1/hpf); Eosinophils 3 % (0-10); Lymphocytes 21 % (21-51); MDiff Complete? YES; Monocytes 11 % (0-10); Neutrophil 54 % (42-75); Nucleated RBC 2 % (0); Platelet Morphology Comment Appears Decreased; Polychromasia SLIGHT = 2-3 cells (100X) (0-2/hpf); Reactive Lymphocytes 1 % (0-10)
[2021-06-14] MEDS ORDERED: Lactated Ringer's 250 ML IV SCH (12:45)
[2021-06-14] MEDS: Nicotine 14 MG PATCH TD SCH (20:55)
[2021-06-15] MEDS: Vancomycin HCl 25 MG/ML Oral PO SCH ×3 (04:27→14:56)
[2021-06-15 05:49] LABS: Hemoglobin 9.3 g/dL (12.0-16.0); Mean Corpuscular HGB CONC 32.7 g/dL (32.0-36.0); Mean Corpuscular Hemoglobin 33.5 pg (27.0-31.0); Mean Platelet Volume 9.4 fL (7.4-10.4); Platelet Count 76 thou/uL (130-400); RBC Distribution Width 16.3 % (11.5-14.5); Red Blood Cell (RBC) Count 2.76 mill/uL (4.20-5.40); White Blood Cell (WBC) Count 2.8 thou/uL (4.8-10.8)
[2021-06-15 06:01] LABS: Anion Gap 13 mmol/L (10-20); BUN (Urea Nitrogen) 51 mg/dL (9.8-20.1); Calc. Creatinine Clearance 12 mL/min (70-130); Calcium 8.6 mg/dL (7.8-10.44); Carbon Dioxide 14 mmol/L (23-31); Chloride 123 mmol/L (98-107); Glucose 87 mg/dL (80-115); Phosphorus 2.4 mg/dL (2.3-4.7); Potassium 4.9 mmol/L (3.5-5.1); Sodium 145 mmol/L (136-145)
[2021-06-15 06:32] LABS: Band 5 % (5-11); Eosinophils 2 % (0-10); Lymphocytes 23 % (21-51); MDiff Complete? YES; Monocytes 15 % (0-10); Neutrophil 54 % (42-75); Platelet Morphology Comment Appears Decreased; Reactive Lymphocytes 1 % (0-10)
[2021-06-15] MEDS: Carvedilol 25 MG TAB PO SCH (08:20)
[2021-06-15] MEDS: Folic Acid 1 MG TAB PO SCH (08:20)
[2021-06-15] MEDS: levETIRAcetam 500 MG TAB PO SCH (08:20)
[2021-06-15] MEDS: Magnesium Oxide 400 MG TAB PO SCH (08:21)
[2021-06-15] MEDS: Multivitamin W/ Minerals 1 TAB PO SCH (08:21)
[2021-06-15] MEDS: Cholecalciferol 1,000 UNITS (25 MCG) TAB PO SCH (08:21)
[2021-06-15] MEDS: Lactated Ringer's 250 ML IV SCH ×4 (10:30→11:22)
[2021-06-15 16:32] VITALS: BP 169/95; TEMP 96.4
== END 2021-06-15 16:26 | DRG 808 ==
LOC: ERS 13:29 → ERHOLD 15:45 → IMCU/EMU 22:22 → 2NO 06-09 18:26
PROVIDERS: ADMIT Family Medicine; ATTEND Family Medicine
PROC: 30233R1 Transfusion of Nonautologous Platelets into Peripheral Vein, Percutaneous Approach (ICD-10-PCS; principal; 2021-06-08)
PROC: 30233N1 Transfusion of Nonautologous Red Blood Cells into Peripheral Vein, Percutaneous Approach (ICD-10-PCS; 2021-06-08)
DX: D61.818 Other pancytopenia (principal); E43 Unspecified severe protein-calorie malnutrition; N17.9 Acute kidney failure, unspecified; I42.9 Cardiomyopathy, unspecified; Z68.1 Body mass index [BMI] 19.9 or less, adult; I13.0 Hypertensive heart and chronic kidney disease with heart failure and stage 1 through stage 4 chronic kidney disease, or unspecified chronic kidney disease; I50.22 Chronic systolic (congestive) heart failure; I24.8 Other forms of acute ischemic heart disease; N18.4 Chronic kidney disease, stage 4 (severe); R64 Cachexia; A04.72 Enterocolitis due to Clostridium difficile, not specified as recurrent; D69.6 Thrombocytopenia, unspecified; Z51.5 Encounter for palliative care; D53.9 Nutritional anemia, unspecified; Z20.822 Contact with and (suspected) exposure to COVID-19; G40.909 Epilepsy, unspecified, not intractable, without status epilepticus; M19.90 Unspecified osteoarthritis, unspecified site; Z96.642 Presence of left artificial hip joint; F17.210 Nicotine dependence, cigarettes, uncomplicated; E87.6 Hypokalemia; E16.2 Hypoglycemia, unspecified; D63.1 Anemia in chronic kidney disease; E83.42 Hypomagnesemia; R77.8 Other specified abnormalities of plasma proteins; F32.A Depression, unspecified; F10.10 Alcohol abuse, uncomplicated; A53.0 Latent syphilis, unspecified as early or late; Z90.710 Acquired absence of both cervix and uterus; Z88.8 Allergy status to other drugs, medicaments and biological substances; Z79.899 Other long term (current) drug therapy
CPT/HCPCS: 36415; 36416; 36430; 70450; 80048; 80053; 80306; 80307; 81003; 81015; 82140; 82274; 82553; 82607; 82746; 83036; 83690; 83735; 84100; 84134; 84484; 85025; 85610; 85730; 86850; 86900; 86901; 87077; 87086; 87186; 87324; 87449; 87493; 93005; 93010; 96365; 96375; J1940; J3360; J3411; J3475; J3480; J7042; J7050; J7120; P9016; P9035; U0002; U0003; U0005

== ENCOUNTER 2021-07-31 13:28 | Emergency (ER) | payer MEDICARE ==
[2021-07-31 14:08] LABS: #Lymphocytes 0.4 thou/uL (1.20-3.40); #Monocytes 0.2 thou/uL (0.11-0.59); %Eosinophils 1.2 % (0.0-10.0); %Lymphocytes 13.7 % (21.0-51.0); %Monocytes 7.6 % (0.0-10.0); %Neutrophils 77.5 % (42.0-75.0); Hemoglobin 4.6 g/dL (12.0-16.0); Mean Corpuscular HGB CONC 33.3 g/dL (32.0-36.0); Mean Corpuscular Hemoglobin 36.3 pg (27.0-31.0); Mean Platelet Volume 6.8 fL (7.4-10.4); Platelet Count 73 thou/uL (130-400); RBC Distribution Width 15.8 % (11.5-14.5); Red Blood Cell (RBC) Count 1.27 mill/uL (4.20-5.40); White Blood Cell (WBC) Count 2.6 thou/uL (4.8-10.8)
[2021-07-31 14:23] LABS: Magnesium 1.6 mg/dL (1.6-2.6)
[2021-07-31 14:27] LABS: Phosphorus 10.5 mg/dL (2.3-4.7)
[2021-07-31 14:31] LABS: ALT (SGPT) 9 U/L (8-55); AST (SGOT) 18 U/L (5-34); Albumin 2.3 g/dL (3.4-4.8); Alkaline Phosphatase 97 U/L (40-110); BUN (Urea Nitrogen) 123 mg/dL (9.8-20.1); Bilirubin, Total 0.3 mg/dL (0.2-1.2); Calc. Creatinine Clearance 0 mL/min (70-130); Calcium 7.3 mg/dL (7.8-10.44); Chloride 111 mmol/L (98-107); Globulin 2.6 g/dL (2.4-3.5); Glucose 405 mg/dL (80-115); Protein, Total 4.9 g/dL (5.8-8.1); Sodium 135 mmol/L (136-145)
[2021-07-31 14:33] LABS: Anisocytosis SLIGHT = 6-15 cells (100X) (0-5/hpf); MDiff Complete? YES; Macrocytosis SLIGHT = 6-15 cells (100X) (0-5/hpf); Ovalocytes SLIGHT = 2-5 cells (100X) (0-1/hpf); Platelet Morphology Comment Appears Decreased; Polychromasia MODERATE = 3-4 cells (100X) (0-2/hpf)
[2021-07-31 14:39] LABS: Carbon Dioxide Less than 8 mmol/L (23-31)
[2021-07-31] MEDS ORDERED: Thiamine HCl 200 MG/2 ML VIAL IVPB SCH (15:00)
[2021-07-31] MEDS ORDERED: Thiamine HCl 200 MG/2 ML VIAL SLOW IVP SCH (15:00)
[2021-07-31] MEDS ORDERED: Pantoprazole 40 MG VIAL ONE (15:09)
[2021-07-31] MEDS ORDERED: Potassium Chloride 20 MEQ TAB ONE (15:09)
[2021-07-31 15:45] LABS: Alcohol Less than 10 mg/dL (Less than 10); CK (CPK) 23 U/L (29-168); Salicylate Less than 8.0 mg/dL (15.0-30.0)
[2021-07-31 16:28] LABS: CKMB 3.3 ng/mL (0-6.6)
== END 2021-07-31 16:19 | disposition short-term general hospital (02) ==
LOC: ERS 13:28
DX: D64.9 Anemia, unspecified (principal); F10.10 Alcohol abuse, uncomplicated; E87.6 Hypokalemia; E16.2 Hypoglycemia, unspecified; K92.2 Gastrointestinal hemorrhage, unspecified; I10 Essential (primary) hypertension; M19.90 Unspecified osteoarthritis, unspecified site; F17.210 Nicotine dependence, cigarettes, uncomplicated
CPT/HCPCS: 36430; 71045; 80053; 80307; 82140; 82550; 82553; 82962; 83690; 83735; 83880; 84100; 84484; 85025; 86850; 86900; 86901; 86920; 93005; P9016; 36415; 36416; 82274; 96374; 96375; C9113; J3411

== ENCOUNTER 2021-08-16 08:24 | Inpatient (IN) | payer MEDICARE ==
[2021-08-16 09:28] LABS: Hemoglobin 11.1 g/dL (12.0-16.0); Mean Corpuscular HGB CONC 32.5 g/dL (32.0-36.0); Mean Corpuscular Hemoglobin 31.7 pg (27.0-31.0); Mean Corpuscular Volume 97.6 fL (78.0-98.0); Mean Platelet Volume 8.1 fL (7.4-10.4); Platelet Count 101 thou/uL (130-400); RBC Distribution Width 16.2 % (11.5-14.5); Red Blood Cell (RBC) Count 3.51 mill/uL (4.20-5.40); White Blood Cell (WBC) Count 3.2 thou/uL (4.8-10.8)
[2021-08-16 09:36] LABS: #Lymphocytes 0.5 thou/uL (1.20-3.40); #Monocytes 0.1 thou/uL (0.11-0.59); #Neutrophils 2.6 thou/uL (1.40-6.50); %Eosinophils 0.5 % (0.0-10.0); %Lymphocytes 14.1 % (21.0-51.0); %Monocytes 3.4 % (0.0-10.0); %Neutrophils 81.9 % (42.0-75.0)
[2021-08-16 09:38] LABS: ALT (SGPT) 39 U/L (8-55); AST (SGOT) 35 U/L (5-34); Albumin 2.4 g/dL (3.4-4.8); Alkaline Phosphatase 162 U/L (40-110); Anion Gap 17 mmol/L (10-20); BUN (Urea Nitrogen) 74 mg/dL (9.8-20.1); Bilirubin, Total 0.3 mg/dL (0.2-1.2); Calc. Creatinine Clearance 0 mL/min (70-130); Calcium 7.8 mg/dL (7.8-10.44); Carbon Dioxide 16 mmol/L (23-31); Chloride 109 mmol/L (98-107); Globulin 3.3 g/dL (2.4-3.5); Glucose 117 mg/dL (80-115); Potassium 4.4 mmol/L (3.5-5.1); Protein, Total 5.7 g/dL (5.8-8.1); Sodium 138 mmol/L (136-145)
[2021-08-16 09:58] LABS: CKMB 2.2 ng/mL (0-6.6)
[2021-08-16] MEDS ORDERED: Enoxaparin Sodium 60 MG/0.6 ML SYRINGE ONE (11:20)
[2021-08-16] MEDS ORDERED: Ondansetron PF 4 MG/2 ML Vial IVP PRN ×2 (11:24→20:00)
[2021-08-16] MEDS ORDERED: Ondansetron ODT 4 MG TAB PO PRN (11:24)
[2021-08-16] MEDS ORDERED: Thiamine 100 MG TAB PO SCH (11:45)
[2021-08-16] MEDS ORDERED: Lactated Ringer's 1,000 ML IV SCH (12:00)
[2021-08-16] MEDS ORDERED: Lactated Ringer's 500 ML IV SCH (12:15)
[2021-08-16 12:30] LABS: Troponin I 0.139 ng/mL (< 0.028)
[2021-08-16] MEDS ORDERED: Carvedilol 25 MG TAB PO SCH (12:30)
[2021-08-16] MEDS ORDERED: Thiamine 100 MG TAB ONE (12:36)
[2021-08-16 13:30] LABS: Magnesium 1.6 mg/dL (1.6-2.6); Phosphorus 6.4 mg/dL (2.3-4.7)
[2021-08-16] MEDS: Vancomycin 25 MG/ML Oral SOLN PO SCH ×2 (14:44→21:56)
[2021-08-16] MEDS: Nicotine 14 MG PATCH TD SCH (14:52)
[2021-08-16 16:15] LABS: Anion Gap 15 mmol/L (10-20); BUN (Urea Nitrogen) 71 mg/dL (9.8-20.1); Calc. Creatinine Clearance 10 mL/min (70-130); Carbon Dioxide 16 mmol/L (23-31); Chloride 110 mmol/L (98-107); Glucose 93 mg/dL (80-115); Magnesium 1.5 mg/dL (1.6-2.6); Phosphorus 6.1 mg/dL (2.3-4.7); Potassium 4.4 mmol/L (3.5-5.1); Sodium 137 mmol/L (136-145)
[2021-08-16 16:18] LABS: Troponin I 0.141 ng/mL (< 0.028)
[2021-08-16] MEDS ORDERED: Magnesium 2 GM/50 ML 2 GM in Premix Bag 1 BAG IVPB SCH (17:45)
[2021-08-16] MEDS ORDERED: Magnesium 2 GM/50 ML BAG (IN WATER) ONE (17:53)
[2021-08-16] MEDS ORDERED: Ondansetron ODT 4 MG TAB SL PRN (20:00)
[2021-08-16] MEDS ORDERED: Acetaminophen 325 MG TAB PO PRN (20:00)
[2021-08-16 21:41] LABS: SARS-CoV-2 NAA Rapid Test DETECTED (NotDetected)
[2021-08-16] MEDS: Carvedilol 25 MG TAB PO SCH (21:56)
[2021-08-16 23:11] VITALS: BMI 14.1
[2021-08-17] MEDS: Vancomycin 25 MG/ML Oral SOLN PO SCH ×3 (02:35→15:22)
[2021-08-17 08:48] LABS: Phosphorus 6.3 mg/dL (2.3-4.7)
[2021-08-17] MEDS: Carvedilol 25 MG TAB PO SCH (08:49)
[2021-08-17 08:50] LABS: Anion Gap 17 mmol/L (10-20); BUN (Urea Nitrogen) 72 mg/dL (9.8-20.1); Calc. Creatinine Clearance 8 mL/min (70-130); Calcium 7.9 mg/dL (7.8-10.44); Carbon Dioxide 15 mmol/L (23-31); Chloride 109 mmol/L (98-107); Glucose 77 mg/dL (80-115); Magnesium 2.2 mg/dL (1.6-2.6); Potassium 4.2 mmol/L (3.5-5.1); Sodium 137 mmol/L (136-145)
[2021-08-17 08:52] LABS: #Lymphocytes 0.4 thou/uL (1.20-3.40); #Monocytes 0.1 thou/uL (0.11-0.59); #Neutrophils 1.8 thou/uL (1.40-6.50); %Eosinophils 1.3 % (0.0-10.0); %Lymphocytes 17.5 % (21.0-51.0); %Monocytes 6.1 % (0.0-10.0); %Neutrophils 75.2 % (42.0-75.0); Hemoglobin 9.8 g/dL (12.0-16.0); Mean Corpuscular HGB CONC 32.1 g/dL (32.0-36.0); Mean Corpuscular Volume 99.6 fL (78.0-98.0); Mean Platelet Volume 7.6 fL (7.4-10.4); Platelet Count 96 thou/uL (130-400); RBC Distribution Width 16.6 % (11.5-14.5); Red Blood Cell (RBC) Count 3.07 mill/uL (4.20-5.40); White Blood Cell (WBC) Count 2.4 thou/uL (4.8-10.8)
[2021-08-17] MEDS ORDERED: Thiamine 100 MG TAB PO SCH (09:00)
[2021-08-17] MEDS ORDERED: Folic Acid 1 MG TAB PO SCH (09:00)
[2021-08-17] MEDS ORDERED: levETIRAcetam 500 MG TAB PO SCH ×2 (09:00)
[2021-08-17] MEDS ORDERED: Sodium Bicarbonate Tab 325 MG TAB PO SCH (09:00)
[2021-08-17] MEDS ORDERED: Multivitamin W/ Minerals 1 TAB PO SCH (09:00)
[2021-08-17] MEDS: Nicotine 14 MG PATCH TD SCH (15:24)
[2021-08-17 16:00] VITALS: BP 164/94; TEMP 98.2
[2021-08-19] MEDS ORDERED: FLU VACC QS2021-22(65YR UP)/PF 240 MCG/0.7 ML SYRINGE IM ONE (09:00)
== END 2021-08-17 17:02 | disposition home or self-care (01) | DRG 177 ==
LOC: ERS 08:24 → ERHOLD 10:48 → 2SW 10:48
PROVIDERS: ADMIT Student in an Organized Health Care Education/Training Program; ATTEND Student in an Organized Health Care Education/Training Program
PROC: 8E0ZXY6 Isolation (ICD-10-PCS; principal; 2021-08-16)
DX: U07.1 COVID-19 (principal); E43 Unspecified severe protein-calorie malnutrition; I13.2 Hypertensive heart and chronic kidney disease with heart failure and with stage 5 chronic kidney disease, or end stage renal disease; N18.5 Chronic kidney disease, stage 5; I50.22 Chronic systolic (congestive) heart failure; D61.818 Other pancytopenia; N17.9 Acute kidney failure, unspecified; Z68.1 Body mass index [BMI] 19.9 or less, adult; Z23 Encounter for immunization; F10.10 Alcohol abuse, uncomplicated; G40.909 Epilepsy, unspecified, not intractable, without status epilepticus; R94.31 Abnormal electrocardiogram [ECG] [EKG]; E86.1 Hypovolemia; A53.0 Latent syphilis, unspecified as early or late; Z96.642 Presence of left artificial hip joint; Z91.041 Radiographic dye allergy status; Z88.8 Allergy status to other drugs, medicaments and biological substances; Z79.899 Other long term (current) drug therapy; Z74.01 Bed confinement status
CPT/HCPCS: 36415; 71045; 80048; 80053; 82553; 83735; 83880; 84100; 84484; 85025; 85379; 93005; 96372; J1650; J3475; J7120; U0002

== ENCOUNTER 2021-08-18 04:26 | Emergency (ER) | payer MEDICARE ==
[2021-08-18 05:41] LABS: #Lymphocytes 0.4 thou/uL (1.20-3.40); #Monocytes 0.2 thou/uL (0.11-0.59); #Neutrophils 2.6 thou/uL (1.40-6.50); %Basophils 0.4 % (0.0-1.0); %Eosinophils 0.6 % (0.0-10.0); %Lymphocytes 12.6 % (21.0-51.0); %Monocytes 4.6 % (0.0-10.0); %Neutrophils 81.8 % (42.0-75.0); Hemoglobin 11.1 g/dL (12.0-16.0); Mean Corpuscular HGB CONC 33.4 g/dL (32.0-36.0); Mean Corpuscular Hemoglobin 32.6 pg (27.0-31.0); Mean Corpuscular Volume 97.7 fL (78.0-98.0); Mean Platelet Volume 8.1 fL (7.4-10.4); Platelet Count 95 thou/uL (130-400); RBC Distribution Width 16.6 % (11.5-14.5); White Blood Cell (WBC) Count 3.2 thou/uL (4.8-10.8)
[2021-08-18] MEDS ORDERED: Cefepime 2 GM VIAL ONE (05:55)
[2021-08-18 06:00] LABS: Bacteria/HPF 4+ HPF (None Seen); Bilirubin Negative (Negative); Blood, Urine Negative (Negative); Clarity Turbid (Clear); Glucose, Urine (Dipstick) Normal (Negative); Ketone, Urine Negative (Negative); Leukocyte 250 Leu/uL (Negative); Nitrite Negative (Negative); Protein, Urine (Dipstick) 30 mg/dL (Neg-Trace); RBC/HPF 0-3 HPF (0-3); Specific Gravity, Urine 1.017 (1.002-1.036); Squamous Epithelial None Seen HPF (0-3); Urobilinogen Normal mg/dL (Less than 2)
[2021-08-18 06:18] LABS: CKMB 1.8 ng/mL (0-6.6)
[2021-08-18 07:04] LABS: Albumin 2.3 g/dL (3.4-4.8)
[2021-08-18 07:05] LABS: Chloride 107 mmol/L (98-107); Potassium 4.7 mmol/L (3.5-5.1); Sodium 135 mmol/L (136-145)
[2021-08-18 07:06] LABS: Calcium 7.8 mg/dL (7.8-10.44); Glucose 128 mg/dL (80-115)
[2021-08-18 07:07] LABS: Globulin 3.4 g/dL (2.4-3.5); Protein, Total 5.7 g/dL (5.8-8.1)
[2021-08-18 07:08] LABS: Anion Gap 17 mmol/L (10-20); Bilirubin, Total 0.4 mg/dL (0.2-1.2); Carbon Dioxide 16 mmol/L (23-31)
[2021-08-18 07:10] LABS: Alkaline Phosphatase 153 U/L (40-110); Calc. Creatinine Clearance 0 mL/min (70-130)
[2021-08-18 07:11] LABS: BUN (Urea Nitrogen) 72 mg/dL (9.8-20.1)
[2021-08-18 07:12] LABS: AST (SGOT) 33 U/L (5-34)
[2021-08-18 07:13] LABS: ALT (SGPT) 27 U/L (8-55); Lipase 15 U/L (8-78)
[2021-08-18] MEDS ORDERED: Ondansetron PF 4 MG/2 ML Vial IVP PRN (07:37)
[2021-08-18] MEDS ORDERED: Ondansetron ODT 4 MG TAB PO PRN (07:37)
[2021-08-18] MEDS ORDERED: Acetaminophen 325 MG TAB PO PRN (07:37)
[2021-08-18] MEDS ORDERED: Vancomycin 1 GM/200 ML BAG ONE (08:25)
[2021-08-18 08:54] LABS: Troponin I 0.138 ng/mL (< 0.028)
== END 2021-08-18 09:40 | disposition short-term general hospital (02) ==
LOC: ERS 04:26
DX: N39.0 Urinary tract infection, site not specified (principal); J18.9 Pneumonia, unspecified organism; R77.8 Other specified abnormalities of plasma proteins; I10 Essential (primary) hypertension; D64.9 Anemia, unspecified; M19.90 Unspecified osteoarthritis, unspecified site; F17.210 Nicotine dependence, cigarettes, uncomplicated
CPT/HCPCS: 36415; 51701; 71045; 74176; 80053; 81003; 81015; 82553; 83605; 83690; 83880; 84484; 85025; 87040; 87077; 87086; 87186; 93005; 96365; 96366; 96368; J0692; J1956; J3370

== ENCOUNTER 2022-02-07 02:42 | Emergency (ER) | payer MEDICARE | END 2022-02-07 04:25 | disposition home or self-care (01) | LOC: ERS 02:42 | DX: M62.81 Muscle weakness (generalized) (principal); I10 Essential (primary) hypertension; D64.9 Anemia, unspecified; M19.90 Unspecified osteoarthritis, unspecified site; F17.210 Nicotine dependence, cigarettes, uncomplicated; Z87.19 Personal history of other diseases of the digestive system; Z79.899 Other long term (current) drug therapy | CPT/HCPCS: 99284 ==